=== PATIENT | male | born 1950 | race Caucasian/White ===

== ENCOUNTER 2022-04-10 21:40 | Inpatient (IN) | payer MEDICARE, SELFPAY ==
--- NOTE | ~2022-04-10 | MR_ITS ---
MRI OF THE BRAIN WITHOUT IV CONTRAST INDICATION: Rigidity. Questionably Lewy Body disease. COMPARISON: None available. TECHNIQUE: Multiplanar multisequence MR imaging of the brain was obtained without IV contrast. FINDINGS: There is no hydrocephalus, extra-axial surface collection, or herniation. There is global cerebral volume loss and there is mild chronic microangiopathy. The major flow voids at the skull base are preserved. There is no acute infarct on diffusion-weighted imaging. There is no intracranial hemorrhage on the gradient recalled echo acquisition. The midline structures are normal. The cerebellar tonsils are normally positioned. The cerebellum and brainstem are normal. The craniocervical junction is normal. Osseous marrow signal intensity is homogenous. The visualized soft tissues are unremarkable. MR/MR head/brain wo con IMPRESSION: - No acute intracranial findings. No acute infarcts. - There is global cerebral volume loss and there is mild chronic microangiopathy.
[2022-04-10 22:00] VITALS: BP 120/76; PULSE 85; RESP 18; TEMP 36.6; O2SAT 96
[2022-04-10 22:03] VITALS: BMI 27.3
[2022-04-10] MEDS: traZODone HCL 50 MG TABLET PO (23:51)
--- NOTE | 2022-04-11 02:44 | PC.ADMIT ---
Patient is a 72 year old Z[place]ian speaking male arriving on S1 at appx 2150 on CV status. Patient arrives from [facility] in [place] via ambulance. Patient was admitted through the ED there after calling crisis services for HI/SI with a plan to kill his and himself with a knife. Nurse to nurse pre-admission review completed. Patient has history of inpatient care outside of [facility] with last admission being 06/28/21. Patient denies AH/VH. Patient has no current medical complaints. Patient is cooperative and pleasant during admission, speaking in cohesive complete sentences with appropriate tone, volume, and rhythm of speech. Patient requests ativan PRN for anxiety, but it has not been ordered. Accepts trazadone PRN and appears to be sleeping shortly thereafter. 15 minute checks at this time.
[2022-04-11 06:00] VITALS: BP 138/71; PULSE 79; RESP 16; TEMP 36.7; O2SAT 97
[2022-04-11 08:56] LABS: Neutrophils Absolute Auto 3.7 x10*3/uL (2.0-8.3); WBCANC 6.2 X10*3/uL
[2022-04-11] MEDS: Tamsulosin HCL 0.4 MG CAPSULE PO (10:18)
[2022-04-11] MEDS: Finasteride 5 MG TABLET PO (10:18)
[2022-04-11] MEDS: Venlafaxine HCl ER 75 MG CAP.ER.24H PO (10:18)
[2022-04-11] MEDS: LORazepam 1 MG TABLET PO ×2 (12:07→17:06)
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
[2022-04-11 18:00] VITALS: BP 119/76; PULSE 82; RESP 16; TEMP 36.6; O2SAT 96
[2022-04-11] MEDS: Mirtazapine 30 MG TABLET PO (20:06)
[2022-04-11] MEDS: Lithium Carbonate ER 300 MG TABLET.ER 600 MG PO (20:07)
[2022-04-11] MEDS: Atorvastatin Calcium 20 MG TABLET PO (20:07)
[2022-04-11] MEDS: Melatonin 3 MG TABLET 6 MG PO (20:07)
[2022-04-11] MEDS: cloZAPine 100 MG TABLET PO (20:07)
[2022-04-11] MEDS: traZODone HCL 50 MG TABLET PO (20:11)
[2022-04-11 20:37] LABS: Lithium 0.48 mmol/L (0.60-1.20)
[2022-04-11 21:04] LABS: Alanine Aminotransferase 17 U/L (0-40); Albumin Level 3.4 g/dL (3.5-5.0); Alkaline Phosphatase 79 U/L (39-117); Anion Gap 11 (12-20); Aspartate Amino Transferase 13 U/L (5-37); Bilirubin Direct 0.2 mg/dL (0.0-0.5); Bilirubin Total 0.5 mg/dL (0.0-1.0); Blood Urea Nitrogen 11 mg/dL (9-16); Calcium 8.7 mg/dL (8.4-10.2); Carbon Dioxide 25 mmol/L (22-29); Chloride 112 mmol/L (96-108); Cholesterol 100 mg/dL; Creatinine Clr Calc Pharmacy 63.2; Estimated Glomerular Filt Rate > 60; Glucose Random 165 mg/dL (60-115); HDL Cholesterol 29 mg/dL; LDL Cholesterol Calculated 47 mg/dl; Potassium 4.4 mmol/L (3.3-5.1); Sodium 144 mmol/L (135-145); Total Protein 5.3 g/dL (6.5-8.0); Triglycerides 122 mg/dL
[2022-04-11 21:19] LABS: Folate 14.5 ng/mL (> or = 4.0); TSH reflex Free T4 2.24 uIU/mL (0.32-4.0); Vitamin B12 505 pg/mL (200-900)
[2022-04-12 08:30] VITALS: BP 143/81; PULSE 94; RESP 18; TEMP 37; O2SAT 94
[2022-04-12 09:10] LABS: Estimated Average Glucose 108 mg/dL; Hemoglobin A1c % 5.4 %
[2022-04-12] MEDS: Venlafaxine HCl ER 75 MG CAP.ER.24H PO (09:14)
[2022-04-12] MEDS: Tamsulosin HCL 0.4 MG CAPSULE PO (09:15)
[2022-04-12] MEDS: Finasteride 5 MG TABLET PO (09:17)
[2022-04-12] MEDS: LORazepam 1 MG TABLET PO ×2 (09:17→17:41)
--- NOTE | 2022-04-12 12:16 | HO.PSYCHPN ---
Subjective Subjective Date of Service: 04/12/22 Reason For Visit: MDD Recurrent Episode Severe PTSD Interim History: in bed, depressed, no requests. reviewed lithium level, will defer to attending on further mgmt after he speaks with dr. rosales. per staff, very depressed. asking for ativan every 4 hours. lithium 0.48 on 600 mg daily. Mental Status Exam Mental Status Exam Narrative: dressed in hospital attire, adequately dressed and groomed. cooperative. no PMA/PMR. speech nml rate, amount, loudness. flattened tone. thoughts linear and logical. affect constricted, normo-intense, non-labile. perhaps appears drawn. mood depressed. no SI/HI/AVH expressed. Diagnostics Vital Signs (24Hr): Vital Signs - 24 hr 04/11/22 18:00 04/12/22 08:30 Temperature 98 F 98.6 F Pulse Rate 82 94 Respiratory Rate 16 18 Blood Pressure 119/76 143/81 H Pulse Oximetry 96 94 Oxygen Delivery Method Room Air Room Air BMI result Body Mass Index 27.3 Labs 04/11/22 20:09 Labs: Laboratory Results - last 48 hr 04/11/22 04/11/22 04/11/22 08:42 20:09 20:09 Absolute Neuts (auto) 3.7 Sodium 144 Potassium 4.4 Chloride 112 H Carbon Dioxide 25 Anion Gap 11 L BUN 11 Creatinine 1.06 Estim Creat Clear Calc 63.2 Estimated GFR > 60 Random Glucose 165 H Estimat Average Glucose 108 Hemoglobin A1c % 5.4 Calcium 8.7 Total Bilirubin 0.5 Direct Bilirubin 0.2 AST 13 ALT 17 Alkaline Phosphatase 79 Total Protein 5.3 L Albumin 3.4 L Triglycerides 122 Cholesterol 100 LDL Cholesterol, Calc 47 HDL Cholesterol 29 Vitamin B12 505 Folate 14.5 TSH 2.24 [place] 04/11/22 20:09 Absolute Neuts (auto) Sodium Potassium Chloride Carbon Dioxide Anion Gap BUN Creatinine Estim Creat Clear Calc Estimated GFR Random Glucose Estimat Average Glucose Hemoglobin A1c % Calcium Total Bilirubin Direct Bilirubin AST ALT Alkaline Phosphatase Total Protein Albumin Triglycerides Cholesterol LDL Cholesterol, Calc HDL Cholesterol Vitamin B12 Folate TSH [place] 0.48 L Medications Medications Current Medications Acetaminophen (Acetaminophen 325 Mg Tablet) 650 mg PO Q6H PRN PRN Reason: Headache/Pain Mild Scale (1-3) Al Hydroxide/Mg Hydroxide (Magnesium Hydrox/Alum Hydrox 30 Ml Oral.Susp) 30 ml PO Q6H PRN PRN Reason: Heartburn/Nausea Atorvastatin Calcium (Atorvastatin Calcium 20 Mg Tablet) 20 mg PO BEDTIME DIANNE Last Admin: 04/11/22 20:07 Dose: 20 mg Clozapine (Clozapine 100 Mg Tablet) 100 mg PO BEDTIME DIANNE Last Admin: 04/11/22 20:07 Dose: 100 mg Finasteride (Finasteride 5 Mg Tablet) 5 mg PO DAILY COUNTS INCLUDE 234 BEDS AT THE [facility] Last Admin: 04/12/22 09:17 Dose: 5 mg [place] Carbonate ([place] Carbonate Er 300 Mg Tablet.Er) 600 mg PO BEDTIME DIANNE Last Admin: 04/11/22 20:07 Dose: 600 mg Lorazepam (Lorazepam 1 Mg Tablet) 1 mg PO Q4H PRN PRN Reason: moderate anxiety (4-7) Last Admin: 04/12/22 09:17 Dose: 1 mg Magnesium Hydroxide (Milk Of Magnesia 30 Ml Oral.Susp) 30 ml PO DAILY PRN PRN Reason: Constipation Melatonin (Melatonin 3 Mg Tablet) 6 mg PO BEDTIME COUNTS INCLUDE 234 BEDS AT THE [facility] Last Admin: 04/11/22 20:07 Dose: 6 mg Mirtazapine (Mirtazapine 30 Mg Tablet) 30 mg PO BEDTIME COUNTS INCLUDE 234 BEDS AT THE [facility] Last Admin: 04/11/22 20:06 Dose: 30 mg Senna (Sennosides 8.6 Mg Tablet) 17.2 mg PO BEDTIME PRN PRN Reason: constipation Tamsulosin HCl (Tamsulosin Hcl 0.4 Mg Capsule) 0.4 mg PO DAILY COUNTS INCLUDE 234 BEDS AT THE [facility] Last Admin: 04/12/22 09:15 Dose: 0.4 mg Trazodone HCl (Trazodone Hcl 50 Mg Tablet) 50 mg PO BEDTIME MRX1 PRN PRN Reason: Insomnia Last Admin: 04/11/22 20:11 Dose: 50 mg Venlafaxine HCl (Venlafaxine Hcl Er 75 Mg Cap.Er.24h) 75 mg PO DAILY COUNTS INCLUDE 234 BEDS AT THE [facility] Last Admin: 04/12/22 09:14 Dose: 75 mg Allergies Allergies Allergy/AdvReac Type Severity Reaction Status Date / Time Penicillins Allergy Rash Verified 04/11/22 00:44 Assessment & Plan Assessment & Plan (1) Major depressive disorder with psychotic features: Status: Acute Code(s): F32.3 - Major depressive disorder, single episode, severe with psychotic features Plan 04/11: continue current mgmt, with clozapine and lithium at doses he was on prior to the beginning of march. check labs. collect collateral from outpt prescriber on wednesday to determine next steps. ativan PRN anxiety. 04/12: continue current mgmt. collateral tomorrow. Reason for contiued inpatient stay Substantial Risk for: harm to self, inability to function and rapid decompensation Time Spent With Patient Time: Total time managing care of this patient today ____ minutes.
--- NOTE | 2022-04-12 14:25 | HO.PM.IMCN ---
History of Present Illness Data of Consult Service Date: 04/12/22 Primary Care Provider: Nonstaff Physician HPI Reason for consult: Admission H&P Patient is 72-year-old male with PMH significant for HTN, HLD, BPH and severe depression was seen for an admission history and physical to the [facility]. Patient denies any acute medical complaints. No chest pain/pressure, palpitations. No difficulties breathing/shortness of breath. Denies fever, chills, nausea, vomiting, abdominal pain. Review of Systems Review of Systems: Patient has no acute medical complaints at this time Yes all other systems are reviewed and are negative [facility] Medical History Anxiety Depression Glaucoma Hypercholesteremia Hypertension Laceration of abdomen Laceration of chest Laceration of wrist Surgical History History of laparotomy Social History Household Members: Spouse Housing: House Are you a primary before and after school daycare worker to a significant other at home: No Do you presently have visiting nurse or other home services: No Patient Tobacco Use Status: Former Tobacco user Quit Date: 03/2200 Tobacco use type: Cigarette and Cigar Smoked in Last 30 Days: No e-Cigarette/Vaping Use: Never Used Patient Interested in Nicotine Replacement: No Use of substances other than those prescribed or required for medical reasons: No Currently Displaying Signs/Symptoms of Drug Intoxication Withdrawal: No Any prior treatment program specific to substance use: No Advance Directives: No Advance Directives Information Provided: No Suicidal Behavior: History of suicide attemps Current/Past Psychiatric Disorders: Alcohol abuse, Chronic mental illess and Mood disorder Phan Symptoms: Impulsivity Family History: Attempts and Suicide Change in Treatment: Change in provider Access to Firearms: No Do you have thoughts of harming others: None Do you have a plan to hurt others: No Plan Do you have the means to hurt others: Yes (pervasive thoughts of using kitchen knife to harm/kill and self) Recently lost weight without trying: No Nutrition Risks: No Nutritional Risk Sexual orientation: Straight/Heterosexual Gender identity: Male Meds Allergies Allergy/AdvReac Type Severity Reaction Status Date / Time Penicillins Allergy Rash Verified 04/11/22 00:44 Active Medications: Current Medications Acetaminophen (Acetaminophen 325 Mg Tablet) 650 mg PO Q6H PRN PRN Reason: Headache/Pain Mild Scale (1-3) Al Hydroxide/Mg Hydroxide (Magnesium Hydrox/Alum Hydrox 30 Ml Oral.Susp) 30 ml PO Q6H PRN PRN Reason: Heartburn/Nausea Atorvastatin Calcium (Atorvastatin Calcium 20 Mg Tablet) 20 mg PO BEDTIME DIANNE Last Admin: 04/11/22 20:07 Dose: 20 mg Clozapine (Clozapine 100 Mg Tablet) 100 mg PO BEDTIME DIANNE Last Admin: 04/11/22 20:07 Dose: 100 mg Finasteride (Finasteride 5 Mg Tablet) 5 mg PO DAILY [facility] Last Admin: 04/12/22 09:17 Dose: 5 mg [place] Carbonate ([place] Carbonate Er 300 Mg Tablet.Er) 600 mg PO BEDTIME DIANNE Last Admin: 04/11/22 20:07 Dose: 600 mg Lorazepam (Lorazepam 1 Mg Tablet) 1 mg PO Q4H PRN PRN Reason: moderate anxiety (4-7) Last Admin: 04/12/22 09:17 Dose: 1 mg Magnesium Hydroxide (Milk Of Magnesia 30 Ml Oral.Susp) 30 ml PO DAILY PRN PRN Reason: Constipation Melatonin (Melatonin 3 Mg Tablet) 6 mg PO BEDTIME [facility] Last Admin: 04/11/22 20:07 Dose: 6 mg Mirtazapine (Mirtazapine 30 Mg Tablet) 30 mg PO BEDTIME DIANNE Last Admin: 04/11/22 20:06 Dose: 30 mg Senna (Sennosides 8.6 Mg Tablet) 17.2 mg PO BEDTIME PRN PRN Reason: constipation Tamsulosin HCl (Tamsulosin Hcl 0.4 Mg Capsule) 0.4 mg PO DAILY [facility] Last Admin: 04/12/22 09:15 Dose: 0.4 mg Trazodone HCl (Trazodone Hcl 50 Mg Tablet) 50 mg PO BEDTIME MRX1 PRN PRN Reason: Insomnia Last Admin: 04/11/22 20:11 Dose: 50 mg Venlafaxine HCl (Venlafaxine Hcl Er 75 Mg Cap.Er.24h) 75 mg PO DAILY [facility] Last Admin: 04/12/22 09:14 Dose: 75 mg Home Medications Medication Instructions Recorded Confirmed Last Taken Type clozapine 50 mg tablet 1 tab PO BEDTIME 04/11/22 04/11/22 04/10/22 History finasteride 5 mg tablet 1 tab PO DAILY 04/11/22 04/11/22 Unknown History lithium carbonate 300 mg 1 tab PO BEDTIME 04/11/22 04/11/22 04/10/22 History tablet,extended release mirtazapine 30 mg tablet 1 tab PO BEDTIME 04/11/22 04/11/22 Unknown History tamsulosin 0.4 mg capsule 1 cap PO DAILY 04/11/22 04/11/22 Unknown History venlafaxine 75 mg capsule,extended 1 cap PO QAM 04/11/22 04/11/22 Unknown History release 24 hr Physical Exam Vital Signs and Narrative: Vital Signs: Last Vital Signs Temp 98.6 F 04/12/22 08:30 Pulse 94 04/12/22 08:30 Resp 18 04/12/22 08:30 BP 143/81 H 04/12/22 08:30 Pulse Ox 94 04/12/22 08:30 O2 Del Method 04/12/22 08:30 BMI result Body Mass Index 27.3 General: AOx3, no acute distress Resp: CTA bilaterally CVS: S1, S2, RRR GI: +BS, NT, no distention Skin: No rash Neuro: Cranial nerves II-XII grossly intact. Motor grossly intact Extremities: No edema Psych: Appropriate affect Results Labs 04/11/22 20:09 Labs: Laboratory Results - last 24 hr 04/11/22 04/11/22 04/11/22 20:09 20:09 20:09 Anion Gap 11 L Estim Creat Clear Calc 63.2 Estimated GFR > 60 Random Glucose 165 H Estimat Average Glucose 108 Hemoglobin A1c % 5.4 Calcium 8.7 Total Bilirubin 0.5 Direct Bilirubin 0.2 AST 13 ALT 17 Alkaline Phosphatase 79 Total Protein 5.3 L Albumin 3.4 L Triglycerides 122 Cholesterol 100 LDL Cholesterol, Calc 47 HDL Cholesterol 29 Vitamin B12 505 Folate 14.5 TSH 2.24 [place] 0.48 L Assessment and Plan (1) Routine history and physical examination of adult: Status: Acute Plan Patient is 72-year-old male with PMH significant for HTN, HLD, BPH and severe depression was seen for an admission history and physical to the [facility]. Patient denies any acute medical complaints. BPH Continue finasteride, tamsulosin HTN Pt previously on Losartan 50mg qd, last filled 11/07/21 Currently not anti-hypertensives Monitor BP, if remains elevated restart Losartan HLD Pt previously on atorvastatin 20mg q bedtime, last filled 05/30/21 Currently not on cholesterol medication Continue to hold atorvastatin, follow-up outpatient with PCP Thank you for allowing us to participate in the care of this patient. Signing off at this time. Please contact us if there are any acute complaints or concerns. Time Spent With Patient Time: Total time managing care of this patient today ____ minutes.
[2022-04-12 20:30] VITALS: BP 144/88; PULSE 70; RESP 14; TEMP 36.2; O2SAT 98
[2022-04-12] MEDS: cloZAPine 100 MG TABLET PO (20:30)
[2022-04-12] MEDS: Lithium Carbonate ER 300 MG TABLET.ER 600 MG PO (20:31)
[2022-04-12] MEDS: traZODone HCL 50 MG TABLET PO (20:31)
[2022-04-12] MEDS: Melatonin 3 MG TABLET 6 MG PO (20:31)
[2022-04-12] MEDS: Mirtazapine 30 MG TABLET PO (20:31)
[2022-04-13 07:30] VITALS: BP 138/72; PULSE 76; RESP 16; TEMP 37.1; O2SAT 95
[2022-04-13] MEDS: Finasteride 5 MG TABLET PO (08:27)
[2022-04-13] MEDS: Venlafaxine HCl ER 75 MG CAP.ER.24H PO (08:27)
[2022-04-13] MEDS: Tamsulosin HCL 0.4 MG CAPSULE PO (08:27)
--- NOTE | 2022-04-13 12:12 | HO.PSYCHPN ---
Subjective Subjective Date of Service: 04/13/22 Reason For Visit: MDD Recurrent Episode Severe PTSD Subjective Notes: Conditional Voluntary Interim History: The nursing staff reported the patient slept well last night, he reports to being depressed, he has been calm and cooperative. According to the chart, his sleep him an Clozaril were lowered recently. The staff has noticed that the main complaint of the patient is anxiety. The occupational therapist did a [place] test and he scored 20/30 and his [place] test is 3.8. On interview the patient reports anxiety and depression, he is able to contract for safety in the facility I asked about his previous dose of Clozaril and lithium and we will try to get collateral information. Mental Status Exam Mental Status Exam Patient Appearance: Appropriate Patient Orientation: Person and Situation Level of Consciousness: Awake and Appropriate Patient Behavior: Guarded and Passive Affect Description: Withdrawn Ability to Follow Directions: Good Speech Pattern: Clear Hallucinations: None Delusions: Not Present Thought Process: Distracted, Evasive and Slowed Thinking Thought Content: positive for [place] and positive for Circumstantial Judgement: Fair Diagnostics Vital Signs (24Hr): Vital Signs - 24 hr 04/12/22 20:30 04/13/22 07:30 Temperature 97.2 F 98.7 F Pulse Rate 70 76 Respiratory Rate 14 16 Blood Pressure 144/88 H 138/72 Pulse Oximetry 98 95 Oxygen Delivery Method Room Air Room Air BMI result Body Mass Index 27.3 Labs 04/11/22 20:09 Labs: Laboratory Results - last 48 hr 04/11/22 04/11/22 04/11/22 20:09 20:09 20:09 Sodium 144 Potassium 4.4 Chloride 112 H Carbon Dioxide 25 Anion Gap 11 L BUN 11 Creatinine 1.06 Estim Creat Clear Calc 63.2 Estimated GFR > 60 Random Glucose 165 H Estimat Average Glucose 108 Hemoglobin A1c % 5.4 Calcium 8.7 Total Bilirubin 0.5 Direct Bilirubin 0.2 AST 13 ALT 17 Alkaline Phosphatase 79 Total Protein 5.3 L Albumin 3.4 L Triglycerides 122 Cholesterol 100 LDL Cholesterol, Calc 47 HDL Cholesterol 29 Vitamin B12 505 Folate 14.5 TSH 2.24 [place] 0.48 L Medications Medications Current Medications Acetaminophen (Acetaminophen 325 Mg Tablet) 650 mg PO Q6H PRN PRN Reason: Headache/Pain Mild Scale (1-3) Al Hydroxide/Mg Hydroxide (Magnesium Hydrox/Alum Hydrox 30 Ml Oral.Susp) 30 ml PO Q6H PRN PRN Reason: Heartburn/Nausea Atorvastatin Calcium (Atorvastatin Calcium 20 Mg Tablet) 20 mg PO BEDTIME [facility] Last Admin: 04/12/22 19:54 Dose: Not Given Clozapine (Clozapine 100 Mg Tablet) 100 mg PO BEDTIME [facility] Last Admin: 04/12/22 20:30 Dose: 100 mg Finasteride (Finasteride 5 Mg Tablet) 5 mg PO DAILY [facility] Last Admin: 04/13/22 08:27 Dose: 5 mg [place] Carbonate ([place] Carbonate Er 300 Mg Tablet.Er) 600 mg PO BEDTIME DIAN[facility] Last Admin: 04/12/22 20:31 Dose: 600 mg Lorazepam (Lorazepam 1 Mg Tablet) 1 mg PO Q4H PRN PRN Reason: moderate anxiety (4-7) Last Admin: 04/12/22 17:41 Dose: 1 mg Magnesium Hydroxide (Milk Of Magnesia 30 Ml Oral.Susp) 30 ml PO DAILY PRN PRN Reason: Constipation Melatonin (Melatonin 3 Mg Tablet) 6 mg PO BEDTIME [facility] Last Admin: 04/12/22 20:31 Dose: 6 mg Mirtazapine (Mirtazapine 30 Mg Tablet) 30 mg PO BEDTIME [facility] Last Admin: 04/12/22 20:31 Dose: 30 mg Senna (Sennosides 8.6 Mg Tablet) 17.2 mg PO BEDTIME PRN PRN Reason: constipation Tamsulosin HCl (Tamsulosin Hcl 0.4 Mg Capsule) 0.4 mg PO DAILY [facility] Last Admin: 04/13/22 08:27 Dose: 0.4 mg Trazodone HCl (Trazodone Hcl 50 Mg Tablet) 50 mg PO BEDTIME MRX1 PRN PRN Reason: Insomnia Last Admin: 04/12/22 20:31 Dose: 50 mg Venlafaxine HCl (Venlafaxine Hcl Er 75 Mg Cap.Er.24h) 75 mg PO DAILY [facility] Last Admin: 04/13/22 08:27 Dose: 75 mg Allergies Allergies Allergy/AdvReac Type Severity Reaction Status Date / Time Penicillins Allergy Rash Verified 04/11/22 00:44 Assessment & Plan Assessment & Plan (1) Routine history and physical examination of adult: Status: Acute Code(s): Z00.00 - Encounter for general adult medical examination without abnormal findings Plan Patient is 72-year-old male with PMH significant for HTN, HLD, BPH and severe depression was seen for an admission history and physical to the [facility]. Patient denies any acute medical complaints. BPH Continue finasteride, tamsulosin HTN Pt previously on Losartan 50mg qd, last filled 11/07/21 Currently not anti-hypertensives Monitor BP, if remains elevated restart Losartan HLD Pt previously on atorvastatin 20mg q bedtime, last filled 05/30/21 Currently not on cholesterol medication Continue to hold atorvastatin, follow-up outpatient with PCP Thank you for allowing us to participate in the care of this patient. Signing off at this time. Please contact us if there are any acute complaints or concerns. Plan 1. Gather collateral information. 2. Continue [place] was prescribed. 3. We will discuss the possibilities of other antidepressants. 4. Increase Clozaril up to 125 mg po qhs on Apr 13. Reason for contiued inpatient stay Substantial Risk for: inability to function, rapid decompensation and med/psych decompensation Time Spent With Patient Time: Total time managing care of this patient today __20__ minutes.
[2022-04-13] MEDS: LORazepam 1 MG TABLET PO ×2 (12:24→21:57)
[2022-04-13 18:00] VITALS: BP 140/83; PULSE 72; RESP 16; TEMP 36.5; O2SAT 97
[2022-04-13] MEDS: Atorvastatin Calcium 20 MG TABLET PO (21:55)
[2022-04-13] MEDS: Melatonin 3 MG TABLET 6 MG PO (21:55)
[2022-04-13] MEDS: cloZAPine 25 MG TABLET 125 MG PO (21:56)
[2022-04-13] MEDS: Lithium Carbonate ER 300 MG TABLET.ER 600 MG PO (21:57)
[2022-04-13] MEDS: Mirtazapine 30 MG TABLET PO (21:58)
[2022-04-14 06:00] VITALS: BP 137/74; PULSE 73; RESP 18; TEMP 35.9; O2SAT 96
[2022-04-14] MEDS: Finasteride 5 MG TABLET PO (11:20)
[2022-04-14] MEDS: LORazepam 1 MG TABLET PO ×2 (11:20→16:56)
[2022-04-14] MEDS: Tamsulosin HCL 0.4 MG CAPSULE PO (11:20)
[2022-04-14] MEDS: Venlafaxine HCl ER 75 MG CAP.ER.24H PO (11:20)
--- NOTE | 2022-04-14 13:54 | P.PNPSI_ITS ---
Subjective Subjective Date of Service: 04/14/22 Reason For Visit: MDD Recurrent Episode Severe PTSD Subjective Notes: Conditional Voluntary Interim History: The nursing staff reported the patient has been ordered utilizing his Ativan for anxiety. He looks extremely depressed and there is no evidence of aggressive behavior. On interview the patient reports that he is very depressed and he does not have energy. We discussed the plan to continue the titration of Clozaril. According to old records he used to be on 200 mg of Clozaril daily and he used to be s table. We will continue with the titration of Clozaril Mental Status Exam Mental Status Exam Patient Appearance: Well Grooomed and Appropriate Patient Orientation: Person and Situation Level of Consciousness: Awake and Appropriate Patient Behavior: Guarded and Passive Mood Description: Withdrawn Affect Description: Calm and Constricted Patient Cognition Impaired: Yes Ability to Follow Directions: Good Speech Pattern: Clear Hallucinations: None Delusions: Not Present Thought Process: Distracted and Linear Thought Content: positive for [place] and positive for Circumstantial Judgement: Fair Diagnostics Vital Signs (24Hr): Vital Signs - 24 hr 04/13/22 18:00 04/14/22 06:00 Temperature 97.7 F 96.7 F L Pulse Rate 72 73 Respiratory Rate 16 18 Blood Pressure 140/83 H 137/74 Pulse Oximetry 97 96 Oxygen Delivery Method Room Air Room Air BMI result Body Mass Index 27.3 Labs 04/11/22 20:09 Medications Medications Current Medications Acetaminophen (Acetaminophen 325 Mg Tablet) 650 mg PO Q6H PRN PRN Reason: Headache/Pain Mild Scale (1-3) Al Hydroxide/Mg Hydroxide (Magnesium Hydrox/Alum Hydrox 30 Ml Oral.Susp) 30 ml PO Q6H PRN PRN Reason: Heartburn/Nausea Atorvastatin Calcium (Atorvastatin Calcium 20 Mg Tablet) 20 mg PO BEDTIME [facility] Last Admin: 04/13/22 21:55 Dose: 20 mg Clozapine (Clozapine 25 Mg Tablet) 125 mg PO BEDTIME [facility] Last Admin: 04/13/22 21:56 Dose: 125 mg Finasteride (Finasteride 5 Mg Tablet) 5 mg PO DAILY [facility] Last Admin: 04/14/22 11:20 Dose: 5 mg [place] Carbonate ([place] Carbonate Er 300 Mg Tablet.Er) 600 mg PO BEDTIME [facility] Last Admin: 04/13/22 21:57 Dose: 600 mg Lorazepam (Lorazepam 1 Mg Tablet) 1 mg PO Q4H PRN PRN Reason: moderate anxiety (4-7) Last Admin: 04/14/22 11:20 Dose: 1 mg Magnesium Hydroxide (Milk Of Magnesia 30 Ml Oral.Susp) 30 ml PO DAILY PRN PRN Reason: Constipation Melatonin (Melatonin 3 Mg Tablet) 6 mg PO BEDTIME [facility] Last Admin: 04/13/22 21:55 Dose: 6 mg Mirtazapine (Mirtazapine 30 Mg Tablet) 30 mg PO BEDTIME [facility] Last Admin: 04/13/22 21:58 Dose: 30 mg Senna (Sennosides 8.6 Mg Tablet) 17.2 mg PO BEDTIME PRN PRN Reason: constipation Tamsulosin HCl (Tamsulosin Hcl 0.4 Mg Capsule) 0.4 mg PO DAILY [facility] Last Admin: 04/14/22 11:20 Dose: 0.4 mg Trazodone HCl (Trazodone Hcl 50 Mg Tablet) 50 mg PO BEDTIME MRX1 PRN PRN Reason: Insomnia Last Admin: 04/12/22 20:31 Dose: 50 mg Venlafaxine HCl (Venlafaxine Hcl Er 75 Mg Cap.Er.24h) 75 mg PO DAILY [facility] Last Admin: 04/14/22 11:20 Dose: 75 mg Allergies Allergies Allergy/AdvReac Type Severity Reaction Status Date / Time Penicillins Allergy Rash Verified 04/11/22 00:44 Assessment & Plan Assessment & Plan (1) Routine history and physical examination of adult: Status: Acute Code(s): Z00.00 - Encounter for general adult medical examination without abnormal findings Plan Patient is 72-year-old male with PMH significant for HTN, HLD, BPH and severe depression was seen for an admission history and physical to the [facility]. Patient denies any acute medical complaints. BPH Continue finasteride, tamsulosin HTN Pt previously on Losartan 50mg qd, last filled 11/07/21 Currently not anti-hypertensives Monitor BP, if remains elevated restart Losartan HLD Pt previously on atorvastatin 20mg q bedtime, last filled 05/30/21 Currently not on cholesterol medication Continue to hold atorvastatin, follow-up outpatient with PCP Thank you for allowing us to participate in the care of this patient. Signing off at this time. Please contact us if there are any acute complaints or concerns. Plan 1. Gather collateral information. 2. Continue [place] was prescribed. 3. We will discuss the possibilities of other antidepressants. 4. Increase Clozaril up to 125 mg po qhs on Apr 13. We will continue with the titration of Clozaril up to 200 mg daily. Reason for contiued inpatient stay Substantial Risk for: inability to function, rapid decompensation and med/psych decompensation Time Spent With Patient Time: Total time managing care of this patient today _20___ minutes.
[2022-04-14 18:00] VITALS: BP 136/78; PULSE 81; RESP 17; TEMP 36.6; O2SAT 98
[2022-04-14] MEDS: Atorvastatin Calcium 20 MG TABLET PO (20:28)
[2022-04-14] MEDS: Lithium Carbonate ER 300 MG TABLET.ER 600 MG PO (20:28)
[2022-04-14] MEDS: cloZAPine 25 MG TABLET 125 MG PO (20:28)
[2022-04-14] MEDS: Mirtazapine 30 MG TABLET PO (20:28)
[2022-04-14] MEDS: Melatonin 3 MG TABLET 6 MG PO (20:28)
[2022-04-15 06:00] VITALS: BP 129/73; PULSE 85; RESP 16; TEMP 36.9; O2SAT 97
[2022-04-15] MEDS: Finasteride 5 MG TABLET PO (10:51)
[2022-04-15] MEDS: Tamsulosin HCL 0.4 MG CAPSULE PO (10:51)
[2022-04-15] MEDS: LORazepam 1 MG TABLET PO ×2 (10:52→16:09)
--- NOTE | 2022-04-15 12:40 | HO.PSYCHPN ---
Subjective Subjective Date of Service: 04/15/22 Reason For Visit: MDD Recurrent Episode Severe PTSD Subjective Notes: Conditional Voluntary Interim History: The nursing staff reported the patient had complained of increased depression. The occupational therapist reported the on groups the patient had been depressed with some intrusive thoughts and he had good feedback from the group. On interview the patient reports depression, we discussed options and he agreed to continue with the titration of Clozaril up to 150 mg p.o. q.h.s.. We also are going to increase the Effexor from 75-112.5 mg for tomorrow morning. Mental Status Exam Mental Status Exam Patient Appearance: Well Grooomed and Appropriate Patient Orientation: Person and Situation Level of Consciousness: Awake and Appropriate Patient Behavior: Guarded and Passive Mood Description: Withdrawn Affect Description: Calm Patient Cognition Impaired: Yes Ability to Follow Directions: Good Speech Pattern: Clear Hallucinations: Auditory Delusions: Paranoid Ideation Thought Process: Distracted and Linear Thought Content: positive for [place] and positive for Circumstantial Judgement: Fair Diagnostics Vital Signs (24Hr): Vital Signs - 24 hr 04/14/22 18:00 04/15/22 06:00 Temperature 97.9 F 98.4 F Pulse Rate 81 85 Respiratory Rate 17 16 Blood Pressure 136/78 129/73 Pulse Oximetry 98 97 Oxygen Delivery Method Room Air Room Air BMI result Body Mass Index 27.3 Labs 04/11/22 20:09 Medications Medications Current Medications Acetaminophen (Acetaminophen 325 Mg Tablet) 650 mg PO Q6H PRN PRN Reason: Headache/Pain Mild Scale (1-3) Al Hydroxide/Mg Hydroxide (Magnesium Hydrox/Alum Hydrox 30 Ml Oral.Susp) 30 ml PO Q6H PRN PRN Reason: Heartburn/Nausea Atorvastatin Calcium (Atorvastatin Calcium 20 Mg Tablet) 20 mg PO BEDTIME [facility] Last Admin: 04/14/22 20:28 Dose: 20 mg Clozapine (Clozapine 25 Mg Tablet) 150 mg PO BEDTIME [facility] Finasteride (Finasteride 5 Mg Tablet) 5 mg PO DAILY [facility] Last Admin: 04/15/22 10:51 Dose: 5 mg [place] Carbonate ([place] Carbonate Er 300 Mg Tablet.Er) 600 mg PO BEDTIME [facility] Last Admin: 04/14/22 20:28 Dose: 600 mg Lorazepam (Lorazepam 1 Mg Tablet) 1 mg PO Q4H PRN PRN Reason: moderate anxiety (4-7) Last Admin: 04/15/22 10:52 Dose: 1 mg Magnesium Hydroxide (Milk Of Magnesia 30 Ml Oral.Susp) 30 ml PO DAILY PRN PRN Reason: Constipation Melatonin (Melatonin 3 Mg Tablet) 6 mg PO BEDTIME [facility] Last Admin: 04/14/22 20:28 Dose: 6 mg Mirtazapine (Mirtazapine 30 Mg Tablet) 30 mg PO BEDTIME [facility] Last Admin: 04/14/22 20:28 Dose: 30 mg Senna (Sennosides 8.6 Mg Tablet) 17.2 mg PO BEDTIME PRN PRN Reason: constipation Tamsulosin HCl (Tamsulosin Hcl 0.4 Mg Capsule) 0.4 mg PO DAILY [facility] Last Admin: 04/15/22 10:51 Dose: 0.4 mg Trazodone HCl (Trazodone Hcl 50 Mg Tablet) 50 mg PO BEDTIME MRX1 PRN PRN Reason: Insomnia Last Admin: 04/12/22 20:31 Dose: 50 mg Venlafaxine HCl (Venlafaxine Hcl Er 37.5 Mg Cap.Er.24h) 112.5 mg PO DAILY [facility] Allergies Allergies Allergy/AdvReac Type Severity Reaction Status Date / Time Penicillins Allergy Rash Verified 04/11/22 00:44 Assessment & Plan Assessment & Plan (1) Routine history and physical examination of adult: Status: Acute Code(s): Z00.00 - Encounter for general adult medical examination without abnormal findings Plan Patient is 72-year-old male with PMH significant for HTN, HLD, BPH and severe depression was seen for an admission history and physical to the [facility]. Patient denies any acute medical complaints. BPH Continue finasteride, tamsulosin HTN Pt previously on Losartan 50mg qd, last filled 11/07/21 Currently not anti-hypertensives Monitor BP, if remains elevated restart Losartan HLD Pt previously on atorvastatin 20mg q bedtime, last filled 05/30/21 Currently not on cholesterol medication Continue to hold atorvastatin, follow-up outpatient with PCP Thank you for allowing us to participate in the care of this patient. Signing off at this time. Please contact us if there are any acute complaints or concerns. Plan 1. Gather collateral information. 2. Continue [place] was prescribed. 3. We will discuss the possibilities of other antidepressants. 4. Increase Clozaril up to 125 mg po qhs on Feb 27. We will continue with the titration of Clozaril up to 200 mg daily. Clozaril is now up to 150 mg q.h.s. on April 15. 5. Effexor is increased to 112.5 mg on April 16 Reason for contiued inpatient stay Substantial Risk for: inability to function, rapid decompensation and med/psych decompensation Time Spent With Patient Time: Total time managing care of this patient today _20___ minutes.
[2022-04-15 18:00] VITALS: BP 116/71; PULSE 73; RESP 18; TEMP 36.8; O2SAT 97
[2022-04-15] MEDS: cloZAPine 25 MG TABLET 150 MG PO (20:06)
[2022-04-15] MEDS: Atorvastatin Calcium 20 MG TABLET PO (20:07)
[2022-04-15] MEDS: Lithium Carbonate ER 300 MG TABLET.ER 600 MG PO (20:07)
[2022-04-15] MEDS: Melatonin 3 MG TABLET 6 MG PO (20:07)
[2022-04-15] MEDS: Mirtazapine 30 MG TABLET PO (20:07)
[2022-04-16 06:00] VITALS: BP 142/73; PULSE 85; RESP 18; TEMP 36.6; O2SAT 95
[2022-04-16 07:00] VITALS: BMI 27.3
[2022-04-16 08:49] LABS: Lithium 0.77 mmol/L (0.60-1.20)
[2022-04-16 08:58] LABS: Anion Gap 10 (12-20); Blood Urea Nitrogen 12 mg/dL (9-16); Carbon Dioxide 27 mmol/L (22-29); Chloride 109 mmol/L (96-108); Creatinine Clr Calc Pharmacy 67.7; Estimated Glomerular Filt Rate > 60; Glucose Random 151 mg/dL (60-115); Potassium 4.3 mmol/L (3.3-5.1); Sodium 142 mmol/L (135-145)
[2022-04-16] MEDS: Venlafaxine HCl ER 37.5 MG CAP.ER.24H 112.5 MG PO (09:10)
[2022-04-16 09:11] LABS: Thyroid Stimulating Hormone 3.41 uIU/mL (0.32-4.0)
[2022-04-16] MEDS: Finasteride 5 MG TABLET PO (09:11)
[2022-04-16] MEDS: Tamsulosin HCL 0.4 MG CAPSULE PO (09:11)
[2022-04-16] MEDS: LORazepam 1 MG TABLET PO ×3 (09:11→20:52)
--- NOTE | 2022-04-16 17:27 | P.PNPSI_ITS ---
Subjective Subjective Date of Service: 04/16/22 Reason For Visit: MDD Recurrent Episode Severe PTSD Subjective Notes: Conditional Voluntary Interim History: The nursing staff reported the patient had been compliant with treatment, he remains most of the time in his room a needs encouragement to participate on group activities. The occupational therapist reported that he comes to groups he is very depressed and feels guilty of not able to perform. Even though he likes attending to groups. Blood work from today came back on lithium a therapeutic level. On interview, I explained the patient we will continue with a plan to titrate Clozaril up to 200 mg. He is fully aware of the possibility of urinary retention. I tried to contact Dr. Yrn Garcia at [phone] but I could not leave a message. Dr. Garcia is the primary outpatient provider of [facility]. Mental Status Exam Mental Status Exam Patient Appearance: Appropriate Patient Orientation: Person and Situation Level of Consciousness: Awake and Appropriate Patient Behavior: Cooperative and Passive Mood Description: Withdrawn Affect Description: Constricted and Depressed Patient Cognition Impaired: No Ability to Follow Directions: Good Speech Pattern: Clear Hallucinations: None Delusions: Not Present Thought Process: Distracted and Slowed Thinking Thought Content: positive for [place] and positive for Circumstantial Judgement: Fair Diagnostics Vital Signs (24Hr): Vital Signs - 24 hr 04/15/22 18:00 04/16/22 06:00 Temperature 98.3 F 97.8 F Pulse Rate 73 85 Respiratory Rate 18 18 Blood Pressure 116/71 142/73 H Pulse Oximetry 97 95 Oxygen Delivery Method Room Air Room Air BMI result Body Mass Index 27.3 Labs 04/16/22 08:12 Labs: Laboratory Results - last 48 hr 04/16/22 04/16/22 08:12 08:12 Sodium 142 Potassium 4.3 Chloride 109 H Carbon Dioxide 27 Anion Gap 10 L BUN 12 Creatinine 0.99 Estim Creat Clear Calc 67.7 Estimated GFR > 60 Random Glucose 151 H Calcium 9.0 TSH 3.41 [place] 0.77 Medications Medications Current Medications Acetaminophen (Acetaminophen 325 Mg Tablet) 650 mg PO Q6H PRN PRN Reason: Headache/Pain Mild Scale (1-3) Al Hydroxide/Mg Hydroxide (Magnesium Hydrox/Alum Hydrox 30 Ml Oral.Susp) 30 ml PO Q6H PRN PRN Reason: Heartburn/Nausea Atorvastatin Calcium (Atorvastatin Calcium 20 Mg Tablet) 20 mg PO BEDTIME [facility] Last Admin: 04/15/22 20:07 Dose: 20 mg Clozapine (Clozapine 25 Mg Tablet) 150 mg PO BEDTIME [facility] Last Admin: 04/15/22 20:06 Dose: 150 mg Finasteride (Finasteride 5 Mg Tablet) 5 mg PO DAILY [facility] Last Admin: 04/16/22 09:11 Dose: 5 mg [place] Carbonate ([place] Carbonate Er 300 Mg Tablet.Er) 600 mg PO BEDTIME [facility] Last Admin: 04/15/22 20:07 Dose: 600 mg Lorazepam (Lorazepam 1 Mg Tablet) 1 mg PO Q4H PRN PRN Reason: Anxiety Last Admin: 04/16/22 14:29 Dose: 1 mg Magnesium Hydroxide (Milk Of Magnesia 30 Ml Oral.Susp) 30 ml PO DAILY PRN PRN Reason: Constipation Melatonin (Melatonin 3 Mg Tablet) 6 mg PO BEDTIME [facility] Last Admin: 04/15/22 20:07 Dose: 6 mg Mirtazapine (Mirtazapine 30 Mg Tablet) 30 mg PO BEDTIME [facility] Last Admin: 04/15/22 20:07 Dose: 30 mg Senna (Sennosides 8.6 Mg Tablet) 17.2 mg PO BEDTIME PRN PRN Reason: constipation Tamsulosin HCl (Tamsulosin Hcl 0.4 Mg Capsule) 0.4 mg PO DAILY [facility] Last Admin: 04/16/22 09:11 Dose: 0.4 mg Trazodone HCl (Trazodone Hcl 50 Mg Tablet) 50 mg PO BEDTIME MRX1 PRN PRN Reason: Insomnia Last Admin: 04/12/22 20:31 Dose: 50 mg Venlafaxine HCl (Venlafaxine Hcl Er 37.5 Mg Cap.Er.24h) 112.5 mg PO DAILY [facility] Last Admin: 04/16/22 09:10 Dose: 112.5 mg Allergies Allergies Allergy/AdvReac Type Severity Reaction Status Date / Time Penicillins Allergy Rash Verified 04/11/22 00:44 Assessment & Plan Assessment & Plan (1) Routine history and physical examination of adult: Status: Acute Code(s): Z00.00 - Encounter for general adult medical examination without abnormal findings Plan Patient is 72-year-old male with PMH significant for HTN, HLD, BPH and severe depression was seen for an admission history and physical to the [facility]. Patient denies any acute medical complaints. BPH Continue finasteride, tamsulosin HTN Pt previously on Losartan 50mg qd, last filled 11/07/21 Currently not anti-hypertensives Monitor BP, if remains elevated restart Losartan HLD Pt previously on atorvastatin 20mg q bedtime, last filled 05/30/21 Currently not on cholesterol medication Continue to hold atorvastatin, follow-up outpatient with PCP Thank you for allowing us to participate in the care of this patient. Signing off at this time. Please contact us if there are any acute complaints or concerns. Plan 1. Gather collateral information. 2. Continue [place] was prescribed. 3. We will discuss the possibilities of other antidepressants. 4. Increase Clozaril up to 125 mg po qhs on Apr 13. We will continue with the titration of Clozaril up to 200 mg daily. Clozaril is now up to 150 mg q.h.s. on April 15. And we will change up to Clozaril 1 wants 175 mg on April 17. 5. Effexor is increased to 112.5 mg on April 16 Reason for contiued inpatient stay Substantial Risk for: inability to function, rapid decompensation and med/psych decompensation Time Spent With Patient Time: Total time managing care of this patient today __20__ minutes.
[2022-04-16 18:00] VITALS: BP 108/62; PULSE 79; RESP 16; TEMP 36.6; O2SAT 96
[2022-04-16] MEDS: cloZAPine 25 MG TABLET 150 MG PO (20:51)
[2022-04-16] MEDS: Lithium Carbonate ER 300 MG TABLET.ER 600 MG PO (20:51)
[2022-04-16] MEDS: Atorvastatin Calcium 20 MG TABLET PO (20:51)
[2022-04-16] MEDS: Melatonin 3 MG TABLET 6 MG PO (20:51)
[2022-04-16] MEDS: Mirtazapine 30 MG TABLET PO (20:52)
[2022-04-17 06:00] VITALS: BP 165/91; PULSE 70; TEMP 36.4; O2SAT 96
[2022-04-17] MEDS: Venlafaxine HCl ER 37.5 MG CAP.ER.24H 112.5 MG PO (09:23)
[2022-04-17] MEDS: Finasteride 5 MG TABLET PO (09:23)
[2022-04-17] MEDS: Tamsulosin HCL 0.4 MG CAPSULE PO (09:23)
--- NOTE | 2022-04-17 09:25 | HO.PSYCHPN ---
Subjective Subjective Date of Service: 04/17/22 Reason For Visit: MDD Recurrent Episode Severe PTSD Subjective Notes: Conditional Voluntary Interim History: Pt in bed. He reports feeling very depressed, very anxious. He reports suicidal ideation but denies any plan or intent to harm himself. He denies VH/AH. No overt delusional content reported or noted. Pt reports sleeping well at night. He is mostly in bed, minimally interactive with peers. Taking medications as prescribed. Medication Compliance: Yes Side effects from medications: No Review of Systems Review of Systems Patient has no acute medical complaints at this time Yes all other systems are reviewed and are negative Mental Status Exam Mental Status Exam Narrative: Pt alert, oriented x 3. He is in bed, minimal eye contact. He is dressed in hospital attire, fair hygiene. cooperative. no PMA/PMR. speech nml rate, amount, loudness. flattened tone. thoughts linear and logical. affect constricted, normo-intense, non-labile, constricted. mood depressed. no SI/HI/AVH expressed. Diagnostics Vital Signs (24Hr): Vital Signs - 24 hr 04/16/22 18:00 Temperature 97.9 F Pulse Rate 79 Respiratory Rate 16 Blood Pressure 108/62 Pulse Oximetry 96 Oxygen Delivery Method Room Air BMI result Body Mass Index 27.3 Labs 04/16/22 08:12 Labs: Laboratory Results - last 48 hr 04/16/22 04/16/22 08:12 08:12 Sodium 142 Potassium 4.3 Chloride 109 H Carbon Dioxide 27 Anion Gap 10 L BUN 12 Creatinine 0.99 Estim Creat Clear Calc 67.7 Estimated GFR > 60 Random Glucose 151 H Calcium 9.0 TSH 3.41 Bootjack 0.77 Medications Medications Current Medications Acetaminophen (Acetaminophen 325 Mg Tablet) 650 mg PO Q6H PRN PRN Reason: Headache/Pain Mild Scale (1-3) Al Hydroxide/Mg Hydroxide (Magnesium Hydrox/Alum Hydrox 30 Ml Oral.Susp) 30 ml PO Q6H PRN PRN Reason: Heartburn/Nausea Atorvastatin Calcium (Atorvastatin Calcium 20 Mg Tablet) 20 mg PO BEDTIME DIANNE Last Admin: 04/16/22 20:51 Dose: 20 mg Clozapine (Clozapine 25 Mg Tablet) 150 mg PO BEDTIME DIAN[facility] Stop: 04/17/22 17:00 Last Admin: 04/16/22 20:51 Dose: 150 mg Clozapine (Clozapine 25 Mg Tablet) 175 mg PO BEDTIME [facility] Finasteride (Finasteride 5 Mg Tablet) 5 mg PO DAILY [facility] Last Admin: 04/17/22 09:23 Dose: 5 mg Bootjack Carbonate (Bootjack Carbonate Er 300 Mg Tablet.Er) 600 mg PO BEDTIME [facility] Last Admin: 04/16/22 20:51 Dose: 600 mg Lorazepam (Lorazepam 1 Mg Tablet) 1 mg PO Q4H PRN PRN Reason: Anxiety Last Admin: 04/16/22 20:52 Dose: 1 mg Magnesium Hydroxide (Milk Of Magnesia 30 Ml Oral.Susp) 30 ml PO DAILY PRN PRN Reason: Constipation Melatonin (Melatonin 3 Mg Tablet) 6 mg PO BEDTIME [facility] Last Admin: 04/16/22 20:51 Dose: 6 mg Mirtazapine (Mirtazapine 30 Mg Tablet) 30 mg PO BEDTIME [facility] Last Admin: 04/16/22 20:52 Dose: 30 mg Senna (Sennosides 8.6 Mg Tablet) 17.2 mg PO BEDTIME PRN PRN Reason: constipation Tamsulosin HCl (Tamsulosin Hcl 0.4 Mg Capsule) 0.4 mg PO DAILY [facility] Last Admin: 04/17/22 09:23 Dose: 0.4 mg Trazodone HCl (Trazodone Hcl 50 Mg Tablet) 50 mg PO BEDTIME MRX1 PRN PRN Reason: Insomnia Last Admin: 04/12/22 20:31 Dose: 50 mg Venlafaxine HCl (Venlafaxine Hcl Er 37.5 Mg Cap.Er.24h) 112.5 mg PO DAILY [facility] Last Admin: 04/17/22 09:23 Dose: 112.5 mg Allergies Allergies Allergy/AdvReac Type Severity Reaction Status Date / Time Penicillins Allergy Rash Verified 04/11/22 00:44 Assessment & Plan Assessment & Plan (1) Major depressive disorder with psychotic features: Status: Acute Code(s): F32.3 - Major depressive disorder, single episode, severe with psychotic features Plan Patient is 72-year-old male with PMH significant for HTN, HLD, BPH and severe depression was seen for an admission history and physical to the [facility]. Patient denies any acute medical complaints. BPH Continue finasteride, tamsulosin HTN Pt previously on Losartan 50mg qd, last filled 11/07/21 Currently not anti-hypertensives Monitor BP, if remains elevated restart Losartan HLD Pt previously on atorvastatin 20mg q bedtime, last filled 05/30/21 Currently not on cholesterol medication Continue to hold atorvastatin, follow-up outpatient with PCP Thank you for allowing us to participate in the care of this patient. Signing off at this time. Please contact us if there are any acute complaints or concerns. Plan 1. Gather collateral information. 2. Continue Bootjack was prescribed. 3. We will discuss the possibilities of other antidepressants. 4. Increase Clozaril up to 125 mg po qhs on Apr 13. We will continue with the titration of Clozaril up to 200 mg daily. Clozaril is now up to 150 mg q.h.s. on April 15. And we will change up to Clozaril 1 wants 175 mg on April 17. 5. Effexor is increased to 112.5 mg on April 1604/17 continue tx. Reason for contiued inpatient stay Substantial Risk for: harm to self and inability to function Time Spent With Patient Time: Total time managing care of this patient today ____ minutes.
[2022-04-17] MEDS: LORazepam 1 MG TABLET PO (11:34)
[2022-04-17 18:00] VITALS: BP 120/65; PULSE 70
[2022-04-17] MEDS: cloZAPine 25 MG TABLET 175 MG PO (20:53)
[2022-04-17] MEDS: Lithium Carbonate ER 300 MG TABLET.ER 600 MG PO (20:54)
[2022-04-17] MEDS: Atorvastatin Calcium 20 MG TABLET PO (20:54)
[2022-04-17] MEDS: Melatonin 3 MG TABLET 6 MG PO (20:54)
[2022-04-17] MEDS: Mirtazapine 30 MG TABLET PO (20:54)
[2022-04-18] MEDS: Acetaminophen 325 MG TABLET 650 MG PO (06:22)
[2022-04-18 07:51] LABS: Neut%MD 61.2 %; Neutrophils Absolute Auto 4.8 x10*3/uL (2.0-8.3); WBCANC 7.8 X10*3/uL
[2022-04-18 09:00] VITALS: BP 128/84; PULSE 82; RESP 16; TEMP 36; O2SAT 96
--- NOTE | 2022-04-18 09:04 | HO.PSYCHPN ---
Subjective Subjective Date of Service: 04/18/22 Reason For Visit: MDD Recurrent Episode Severe PTSD Subjective Notes: Conditional Voluntary Interim History: Patient is severely depressed ruminating hopeless helpless despondent clozaril has been gradually increased lithium level .77 Medication Compliance: Yes Mental Status Exam Mental Status Exam Patient Appearance: Fatigued and Appropriate Patient Orientation: Person, Place, Time and Situation Level of Consciousness: Appropriate Patient Behavior: Cooperative Mood Description: Withdrawn, Depressed, Anxious, Blunted, Nervous and Apprehensive Affect Description: Depressed, Flat and Nervous Hallucinations: None Delusions: Not Present Thought Process: Slowed Thinking Thought Content: positive for Preoccupation, positive for Slowed Thinking and positive for Suicidal Ideation (if not in the hospital) Depressive Symptoms: Increased Anxiety, Increased Irritability and Thoughts of /Suicide Judgement: Fair Diagnostics Vital Signs (24Hr): Vital Signs - 24 hr 04/17/22 18:00 Pulse Rate 70 Blood Pressure 120/65 BMI result Body Mass Index 27.3 Labs 04/16/22 08:12 Labs: Laboratory Results - last 48 hr 04/16/22 04/18/22 08:12 06:54 Absolute Neuts (auto) 4.8 TSH 3.41 Medications Medications Current Medications Acetaminophen (Acetaminophen 325 Mg Tablet) 650 mg PO Q6H PRN PRN Reason: Headache/Pain Mild Scale (1-3) Last Admin: 04/18/22 06:22 Dose: 650 mg Al Hydroxide/Mg Hydroxide (Magnesium Hydrox/Alum Hydrox 30 Ml Oral.Susp) 30 ml PO Q6H PRN PRN Reason: Heartburn/Nausea Atorvastatin Calcium (Atorvastatin Calcium 20 Mg Tablet) 20 mg PO BEDTIME [facility] Last Admin: 04/17/22 20:54 Dose: 20 mg Clozapine (Clozapine 25 Mg Tablet) 175 mg PO BEDTIME [facility] Last Admin: 04/17/22 20:53 Dose: 175 mg Finasteride (Finasteride 5 Mg Tablet) 5 mg PO DAILY [facility] Last Admin: 04/17/22 09:23 Dose: 5 mg Meadow Carbonate ([place]ow Carbonate Er 300 Mg Tablet.Er) 600 mg PO BEDTIME [facility] Last Admin: 04/17/22 20:54 Dose: 600 mg Lorazepam (Lorazepam 1 Mg Tablet) 1 mg PO Q4H PRN PRN Reason: Anxiety Last Admin: 04/17/22 11:34 Dose: 1 mg Magnesium Hydroxide (Milk Of Magnesia 30 Ml Oral.Susp) 30 ml PO DAILY PRN PRN Reason: Constipation Melatonin (Melatonin 3 Mg Tablet) 6 mg PO BEDTIME [facility] Last Admin: 04/17/22 20:54 Dose: 6 mg Mirtazapine (Mirtazapine 30 Mg Tablet) 30 mg PO BEDTIME [facility] Last Admin: 04/17/22 20:54 Dose: 30 mg Senna (Sennosides 8.6 Mg Tablet) 17.2 mg PO BEDTIME PRN PRN Reason: constipation Tamsulosin HCl (Tamsulosin Hcl 0.4 Mg Capsule) 0.4 mg PO DAILY [facility] Last Admin: 04/17/22 09:23 Dose: 0.4 mg Trazodone HCl (Trazodone Hcl 50 Mg Tablet) 50 mg PO BEDTIME MRX1 PRN PRN Reason: Insomnia Last Admin: 04/12/22 20:31 Dose: 50 mg Venlafaxine HCl (Venlafaxine Hcl Er 37.5 Mg Cap.Er.24h) 112.5 mg PO DAILY [facility] Last Admin: 04/17/22 09:23 Dose: 112.5 mg Allergies Allergies Allergy/AdvReac Type Severity Reaction Status Date / Time Penicillins Allergy Rash Verified 04/11/22 00:44 Assessment & Plan Assessment & Plan (1) Major depressive disorder with psychotic features: Status: Acute Code(s): F32.3 - Major depressive disorder, single episode, severe with psychotic features Plan Patient is 72-year-old male with PMH significant for HTN, HLD, BPH and severe depression was seen for an admission history and physical to the [facility]. Patient denies any acute medical complaints. BPH Continue finasteride, tamsulosin HTN Pt previously on Losartan 50mg qd, last filled 11/07/21 Currently not anti-hypertensives Monitor BP, if remains elevated restart Losartan HLD Pt previously on atorvastatin 20mg q bedtime, last filled 05/30/21 Currently not on cholesterol medication Continue to hold atorvastatin, follow-up outpatient with PCP Thank you for allowing us to participate in the care of this patient. Signing off at this time. Please contact us if there are any acute complaints or concerns. Plan 1. Gather collateral information. 2. Continue Meadow was prescribed. 3. We will discuss the possibilities of other antidepressants. 4. Increase Clozaril up to 125 mg po qhs on Apr 13. We will continue with the titration of Clozaril up to 200 mg daily. Clozaril is now up to 150 mg q.h.s. on April 15. And we will change up to Clozaril 1 wants 175 mg on April 17. 5. Effexor is increased to 112.5 mg on April 1604/17 continue tx. 04/18/21 quite depressed hopeless helpless si if not in hosp setting ? consider ect Patient educated on: diagnosis and medication risk/benefits Informed Consent: further education needed Reason for contiued inpatient stay Substantial Risk for: harm to self Time Spent With Patient Time: Total time managing care of this patient today ____ minutes.
[2022-04-18] MEDS: LORazepam 1 MG TABLET PO (10:30)
[2022-04-18] MEDS: Venlafaxine HCl ER 37.5 MG CAP.ER.24H 112.5 MG PO (10:31)
[2022-04-18] MEDS: Finasteride 5 MG TABLET PO (10:31)
[2022-04-18] MEDS: Tamsulosin HCL 0.4 MG CAPSULE PO (10:31)
[2022-04-18 18:00] VITALS: BP 129/84; PULSE 74; RESP 18; TEMP 36.6; O2SAT 96
[2022-04-18] MEDS: cloZAPine 25 MG TABLET 175 MG PO (21:03)
[2022-04-18] MEDS: Atorvastatin Calcium 20 MG TABLET PO (21:03)
[2022-04-18] MEDS: Lithium Carbonate ER 300 MG TABLET.ER 600 MG PO (21:04)
[2022-04-18] MEDS: Mirtazapine 30 MG TABLET PO (21:04)
[2022-04-18] MEDS: Melatonin 3 MG TABLET 6 MG PO (21:04)
[2022-04-19 06:00] VITALS: BP 120/77; PULSE 82; RESP 16; TEMP 36.6; O2SAT 96
[2022-04-19] MEDS: Venlafaxine HCl ER 37.5 MG CAP.ER.24H 112.5 MG PO (08:45)
[2022-04-19] MEDS: Tamsulosin HCL 0.4 MG CAPSULE PO (08:47)
[2022-04-19] MEDS: LORazepam 1 MG TABLET PO (08:47)
[2022-04-19] MEDS: Finasteride 5 MG TABLET PO (08:47)
[2022-04-19 18:00] VITALS: BP 140/77; PULSE 85; RESP 18; TEMP 36.6; O2SAT 95
[2022-04-19] MEDS: Atorvastatin Calcium 20 MG TABLET PO (20:14)
[2022-04-19] MEDS: Lithium Carbonate ER 300 MG TABLET.ER 600 MG PO (20:14)
[2022-04-19] MEDS: Mirtazapine 30 MG TABLET PO (20:14)
[2022-04-19] MEDS: cloZAPine 25 MG TABLET 175 MG PO (20:14)
[2022-04-19] MEDS: Melatonin 3 MG TABLET 6 MG PO (20:14)
--- NOTE | 2022-04-19 23:14 | HO.PSYCHPN ---
Subjective Subjective Date of Service: 04/19/22 Reason For Visit: MDD Recurrent Episode Severe PTSD Subjective Notes: Conditional Voluntary Interim History: Patient anxious pacing irritable dysphoric Clozaril 175 mg lithium level around 0.8 history of repeated hospitalizations history of suicide attempt by stabbing extensive discussion regarding history treatment and consideration of ECT patient did have course of ECT to 2 years previously on clear efficacy. Patient does feel p.r.n. lorazepam helpful Medication Compliance: Yes Mental Status Exam Mental Status Exam Patient Appearance: Fatigued and Appropriate Patient Orientation: Person, Place, Time and Situation Level of Consciousness: Appropriate Patient Behavior: Cooperative Mood Description: Withdrawn, Depressed, Anxious, Blunted, Nervous and Apprehensive Affect Description: Depressed, Flat and Nervous Hallucinations: None Delusions: Not Present Thought Process: Slowed Thinking Thought Content: positive for Preoccupation, positive for Slowed Thinking and positive for Suicidal Ideation (if not in the hospital) Depressive Symptoms: Increased Anxiety, Increased Irritability and Thoughts of /Suicide Judgement: Fair Diagnostics Vital Signs (24Hr): Vital Signs - 24 hr 04/20/22 09:00 04/20/22 18:00 Temperature 97.2 F 97 F Pulse Rate 78 78 Respiratory Rate 18 17 Blood Pressure 149/90 H 145/75 H Pulse Oximetry 95 98 Oxygen Delivery Method Room Air Room Air BMI result Body Mass Index 27.3 Labs 04/16/22 08:12 Medications Medications Current Medications Acetaminophen (Acetaminophen 325 Mg Tablet) 650 mg PO Q6H PRN PRN Reason: Headache/Pain Mild Scale (1-3) Last Admin: 04/20/22 00:30 Dose: 650 mg Al Hydroxide/Mg Hydroxide (Magnesium Hydrox/Alum Hydrox 30 Ml Oral.Susp) 30 ml PO Q6H PRN PRN Reason: Heartburn/Nausea Atorvastatin Calcium (Atorvastatin Calcium 20 Mg Tablet) 20 mg PO BEDTIME [facility] Last Admin: 04/20/22 20:28 Dose: 20 mg Clozapine (Clozapine 25 Mg Tablet) 175 mg PO BEDTIME [facility] Last Admin: 04/20/22 20:29 Dose: 175 mg Finasteride (Finasteride 5 Mg Tablet) 5 mg PO DAILY [facility] Last Admin: 04/20/22 08:49 Dose: 5 mg [place] Carbonate ([place] Carbonate Er 300 Mg Tablet.Er) 600 mg PO BEDTIME [facility] Last Admin: 04/20/22 20:29 Dose: 600 mg Lorazepam (Lorazepam 0.5 Mg Tablet) 0.5 mg PO TID [facility] Last Admin: 04/20/22 20:29 Dose: 0.5 mg Lorazepam (Lorazepam 1 Mg Tablet) 1 mg PO Q4H PRN PRN Reason: Anxiety Last Admin: 04/20/22 11:13 Dose: 1 mg Magnesium Hydroxide (Milk Of Magnesia 30 Ml Oral.Susp) 30 ml PO DAILY PRN PRN Reason: Constipation Melatonin (Melatonin 3 Mg Tablet) 6 mg PO BEDTIME [facility] Last Admin: 04/20/22 20:29 Dose: 6 mg Mirtazapine (Mirtazapine 30 Mg Tablet) 30 mg PO BEDTIME [facility] Last Admin: 04/20/22 20:30 Dose: 30 mg Senna (Sennosides 8.6 Mg Tablet) 17.2 mg PO BEDTIME PRN PRN Reason: constipation Tamsulosin HCl (Tamsulosin Hcl 0.4 Mg Capsule) 0.4 mg PO DAILY [facility] Last Admin: 04/20/22 08:49 Dose: 0.4 mg Trazodone HCl (Trazodone Hcl 50 Mg Tablet) 50 mg PO BEDTIME MRX1 PRN PRN Reason: Insomnia Last Admin: 04/12/22 20:31 Dose: 50 mg Venlafaxine HCl (Venlafaxine Hcl Er 150 Mg Cap.Er.24h) 150 mg PO DAILY [facility] Allergies Allergies Allergy/AdvReac Type Severity Reaction Status Date / Time Penicillins Allergy Rash Verified 04/11/22 00:44 Assessment & Plan Assessment & Plan (1) Major depressive disorder with psychotic features: Status: Acute Code(s): F32.3 - Major depressive disorder, single episode, severe with psychotic features Plan Patient is 72-year-old male with PMH significant for HTN, HLD, BPH and severe depression was seen for an admission history and physical to the [facility]. Patient denies any acute medical complaints. BPH Continue finasteride, tamsulosin HTN Pt previously on Losartan 50mg qd, last filled 11/07/21 Currently not anti-hypertensives Monitor BP, if remains elevated restart Losartan HLD Pt previously on atorvastatin 20mg q bedtime, last filled 05/30/21 Currently not on cholesterol medication Continue to hold atorvastatin, follow-up outpatient with PCP Thank you for allowing us to participate in the care of this patient. Signing off at this time. Please contact us if there are any acute complaints or concerns. Plan 1. Gather collateral information. 2. Continue [place] was prescribed. 3. We will discuss the possibilities of other antidepressants. 4. Increase Clozaril up to 125 mg po qhs on Apr 13. We will continue with the titration of Clozaril up to 200 mg daily. Clozaril is now up to 150 mg q.h.s. on April 15. And we will change up to Clozaril 1 wants 175 mg on April 17. 5. Effexor is increased to 112.5 mg on April 1604/17 continue tx. 04/18/21 quite depressed hopeless helpless si if not in hosp setting ? consider ect 04/19/22 Pt seen chart reviewed ativan prn helpful to dec anxiety irritability will try and coordinate with outpt psych ? hx tx response Patient educated on: diagnosis, medication risk/benefits and therapeutic strategies Informed Consent: further education needed Reason for contiued inpatient stay Substantial Risk for: harm to self Time Spent With Patient Time: Total time managing care of this patient today ____ minutes.
[2022-04-20] MEDS: Acetaminophen 325 MG TABLET 650 MG PO (00:30)
[2022-04-20] MEDS: Tamsulosin HCL 0.4 MG CAPSULE PO (08:49)
[2022-04-20] MEDS: Venlafaxine HCl ER 37.5 MG CAP.ER.24H 112.5 MG PO (08:49)
[2022-04-20] MEDS: Finasteride 5 MG TABLET PO (08:49)
[2022-04-20 09:00] VITALS: BP 149/90; PULSE 78; RESP 18; TEMP 36.2; O2SAT 95
[2022-04-20] MEDS: LORazepam 1 MG TABLET PO (11:13)
[2022-04-20] MEDS: LORazepam 0.5 MG TABLET PO ×2 (15:52→20:29)
[2022-04-20 18:00] VITALS: BP 145/75; PULSE 78; RESP 17; TEMP 36.1; O2SAT 98
[2022-04-20] MEDS: Atorvastatin Calcium 20 MG TABLET PO (20:28)
[2022-04-20] MEDS: Melatonin 3 MG TABLET 6 MG PO (20:29)
[2022-04-20] MEDS: cloZAPine 25 MG TABLET 175 MG PO (20:29)
[2022-04-20] MEDS: Lithium Carbonate ER 300 MG TABLET.ER 600 MG PO (20:29)
[2022-04-20] MEDS: Mirtazapine 30 MG TABLET PO (20:30)
--- NOTE | 2022-04-20 23:17 | HO.PSYCHPN ---
Subjective Subjective Date of Service: 04/20/22 Reason For Visit: MDD Recurrent Episode Severe PTSD Subjective Notes: Conditional Voluntary Interim History: Patient continues to be quite depressed feeling like he would harm himself discharged denies active thoughts of self-harm denies intrusive impulsive voice or command to kill himself at this time. Ativan t.i.d. for severe anxiety Medication Compliance: Yes Mental Status Exam Mental Status Exam Patient Appearance: Well Grooomed Patient Orientation: Person, Place, Time and Situation Level of Consciousness: Awake and Appropriate Behavior Comments: Tense looking in appearance pacing anxious Mood Description: Depressed, Anxious, Blunted and Apprehensive Affect Description: Appropriate, Constricted, Depressed and Anxious Patient Cognition Impaired: No Ability to Follow Directions: Good Speech Pattern: Clear Memory Description: Intact Hallucinations: None Delusions: Being Controlled Thought Process: Intact and Goal Oriented Thought Content: positive for Goal Oriented, positive for Preoccupation, positive for Suicidal Ideation (pos if not in hosp setting ) and negative for Homicidal Ideation Depressive Symptoms: Increased Anxiety, Increased Irritability, Hopelessness, Increased Fatigue, Loss of Energy and Difficulty Concentrating Judgement: Good Diagnostics Vital Signs (24Hr): Vital Signs - 24 hr 04/20/22 09:00 04/20/22 18:00 Temperature 97.2 F 97 F Pulse Rate 78 78 Respiratory Rate 18 17 Blood Pressure 149/90 H 145/75 H Pulse Oximetry 95 98 Oxygen Delivery Method Room Air Room Air BMI result Body Mass Index 27.3 Labs 04/16/22 08:12 Medications Medications Current Medications Acetaminophen (Acetaminophen 325 Mg Tablet) 650 mg PO Q6H PRN PRN Reason: Headache/Pain Mild Scale (1-3) Last Admin: 04/20/22 00:30 Dose: 650 mg Al Hydroxide/Mg Hydroxide (Magnesium Hydrox/Alum Hydrox 30 Ml Oral.Susp) 30 ml PO Q6H PRN PRN Reason: Heartburn/Nausea Atorvastatin Calcium (Atorvastatin Calcium 20 Mg Tablet) 20 mg PO BEDTIME [facility] Last Admin: 04/20/22 20:28 Dose: 20 mg Clozapine (Clozapine 25 Mg Tablet) 175 mg PO BEDTIME [facility] Last Admin: 04/20/22 20:29 Dose: 175 mg Finasteride (Finasteride 5 Mg Tablet) 5 mg PO DAILY [facility] Last Admin: 04/20/22 08:49 Dose: 5 mg Fenwood Carbonate (Fenwood Carbonate Er 300 Mg Tablet.Er) 600 mg PO BEDTIME [facility] Last Admin: 04/20/22 20:29 Dose: 600 mg Lorazepam (Lorazepam 0.5 Mg Tablet) 0.5 mg PO TID [facility] Last Admin: 04/20/22 20:29 Dose: 0.5 mg Lorazepam (Lorazepam 1 Mg Tablet) 1 mg PO Q4H PRN PRN Reason: Anxiety Last Admin: 04/20/22 11:13 Dose: 1 mg Magnesium Hydroxide (Milk Of Magnesia 30 Ml Oral.Susp) 30 ml PO DAILY PRN PRN Reason: Constipation Melatonin (Melatonin 3 Mg Tablet) 6 mg PO BEDTIME [facility] Last Admin: 04/20/22 20:29 Dose: 6 mg Mirtazapine (Mirtazapine 30 Mg Tablet) 30 mg PO BEDTIME [facility] Last Admin: 04/20/22 20:30 Dose: 30 mg Senna (Sennosides 8.6 Mg Tablet) 17.2 mg PO BEDTIME PRN PRN Reason: constipation Tamsulosin HCl (Tamsulosin Hcl 0.4 Mg Capsule) 0.4 mg PO DAILY [facility] Last Admin: 04/20/22 08:49 Dose: 0.4 mg Trazodone HCl (Trazodone Hcl 50 Mg Tablet) 50 mg PO BEDTIME MRX1 PRN PRN Reason: Insomnia Last Admin: 04/12/22 20:31 Dose: 50 mg Venlafaxine HCl (Venlafaxine Hcl Er 150 Mg Cap.Er.24h) 150 mg PO DAILY [facility] Allergies Allergies Allergy/AdvReac Type Severity Reaction Status Date / Time Penicillins Allergy Rash Verified 04/11/22 00:44 Assessment & Plan Assessment & Plan (1) Major depressive disorder with psychotic features: Status: Acute Code(s): F32.3 - Major depressive disorder, single episode, severe with psychotic features Plan Patient is 72-year-old male with PMH significant for HTN, HLD, BPH and severe depression was seen for an admission history and physical to the [facility]. Patient denies any acute medical complaints. BPH Continue finasteride, tamsulosin HTN Pt previously on Losartan 50mg qd, last filled 11/07/21 Currently not anti-hypertensives Monitor BP, if remains elevated restart Losartan HLD Pt previously on atorvastatin 20mg q bedtime, last filled 05/30/21 Currently not on cholesterol medication Continue to hold atorvastatin, follow-up outpatient with PCP Thank you for allowing us to participate in the care of this patient. Signing off at this time. Please contact us if there are any acute complaints or concerns. Plan 1. Gather collateral information. 2. Continue [place] was prescribed. 3. We will discuss the possibilities of other antidepressants. 4. Increase Clozaril up to 125 mg po qhs on Apr 13. We will continue with the titration of Clozaril up to 200 mg daily. Clozaril is now up to 150 mg q.h.s. on April 15. And we will change up to Clozaril 1 wants 175 mg on April 17. 5. Effexor is increased to 112.5 mg on April 1604/17 continue tx. 04/18/21 quite depressed hopeless helpless si if not in hosp setting ? consider ect 04/19/22 Pt seen chart reviewed ativan prn helpful to dec anxiety irritability will try and coordinate with outpt psych ? hx tx response 04/20/22 Pt seen lorazepam tid consider ect Patient educated on: diagnosis and medication risk/benefits Informed Consent: understands Reason for contiued inpatient stay Substantial Risk for: harm to self and harm to others Time Spent With Patient Time: Total time managing care of this patient today ____ minutes.
[2022-04-21] MEDS: Acetaminophen 325 MG TABLET 650 MG PO (05:33)
[2022-04-21 06:00] VITALS: BP 136/76; PULSE 76; RESP 18; TEMP 36.4; O2SAT 97
[2022-04-21] MEDS: LORazepam 0.5 MG TABLET PO ×2 (10:17→20:33)
[2022-04-21] MEDS: Venlafaxine HCl ER 150 MG CAP.ER.24H PO (10:17)
[2022-04-21] MEDS: Finasteride 5 MG TABLET PO (10:18)
[2022-04-21] MEDS: Tamsulosin HCL 0.4 MG CAPSULE PO (10:18)
[2022-04-21] MEDS: LORazepam 1 MG TABLET PO (13:37)
[2022-04-21 18:00] VITALS: BP 149/87; PULSE 77; RESP 18; TEMP 36.5; O2SAT 96
[2022-04-21] MEDS: Atorvastatin Calcium 20 MG TABLET PO (20:32)
[2022-04-21] MEDS: Melatonin 3 MG TABLET 6 MG PO (20:33)
[2022-04-21] MEDS: Lithium Carbonate ER 300 MG TABLET.ER 600 MG PO (20:33)
[2022-04-21] MEDS: cloZAPine 25 MG TABLET 175 MG PO (20:33)
[2022-04-21] MEDS: Mirtazapine 30 MG TABLET PO (20:34)
--- NOTE | 2022-04-21 22:52 | HO.PSYCHPN ---
Subjective Subjective Date of Service: 04/21/22 Reason For Visit: MDD Recurrent Episode Severe PTSD Subjective Notes: Conditional Voluntary Healthcare Proxy: No Guardianship: No Interim History: Patient depressed anxious intermittently hopeless helpless difficulty seeing a future if he were to be discharged cast traffic thoughts regarding loss of his marriage patient had had prior to admission intrusive thoughts in which she felt controlled and that he felt that he needed to stab his and staff himself. He did seek treatment. Is unclear if this related to going down on clozapine 250 mg which had been 100 mg now presently at 175 mg Patient feels lorazepam helpful for decreasing anxiety agitation he is however having a difficult time seeing unclear future feels upset overwhelmed over potential loss of his marriage Medication Compliance: Yes Side effects from medications: No Mental Status Exam Mental Status Exam Patient Appearance: Well Grooomed Patient Orientation: Person, Place, Time and Situation Level of Consciousness: Awake and Appropriate Behavior Comments: Tense looking in appearance pacing anxious Mood Description: Depressed, Anxious, Blunted and Apprehensive Affect Description: Appropriate, Constricted, Depressed and Anxious Patient Cognition Impaired: No Ability to Follow Directions: Good Speech Pattern: Clear Memory Description: Intact Hallucinations: None Delusions: Being Controlled Thought Process: Intact and Goal Oriented Thought Content: positive for Goal Oriented, positive for Preoccupation, positive for Suicidal Ideation (pos if not in hosp setting ) and negative for Homicidal Ideation Depressive Symptoms: Increased Anxiety, Increased Irritability, Hopelessness, Increased Fatigue, Loss of Energy and Difficulty Concentrating Judgement: Good Diagnostics Vital Signs (24Hr): Vital Signs - 24 hr 04/22/22 06:00 04/22/22 20:00 Temperature 98.0 F 97.6 F Pulse Rate 88 92 Respiratory Rate 18 18 Blood Pressure 136/65 111/68 Pulse Oximetry 96 96 Oxygen Delivery Method Room Air Room Air BMI result Body Mass Index 27.3 Labs 04/22/22 09:15 Labs: Laboratory Results - last 48 hr 04/22/22 04/22/22 09:15 14:25 Sodium 142 Potassium 3.9 Chloride 110 H Carbon Dioxide 27 Anion Gap 9 L BUN 13 Creatinine 1.07 Estim Creat Clear Calc 62.6 Estimated GFR > 60 Random Glucose 190 H Calcium 8.7 Total Bilirubin 0.6 AST 16 ALT 29 Alkaline Phosphatase 72 Total Protein 5.2 L Albumin 3.5 Urine Color Yellow Urine Appearance Clear Urine pH 6.5 Ur Specific [place] <= 1.005 Urine Protein Negative Urine Glucose (UA) Negative Urine Ketones Negative Urine Blood Trace H Urine Nitrite Negative Ur Leukocyte Esterase Large (3+) H Urine RBC 0-2 Urine WBC >50 H Ur Squamous Epith Cells 0-2 Urine Bacteria None Seen Hyaline Casts 0-2 Medications Medications Current Medications Acetaminophen (Acetaminophen 325 Mg Tablet) 650 mg PO Q6H PRN PRN Reason: Headache/Pain Mild Scale (1-3) Last Admin: 04/22/22 04:01 Dose: 650 mg Al Hydroxide/Mg Hydroxide (Magnesium Hydrox/Alum Hydrox 30 Ml Oral.Susp) 30 ml PO Q6H PRN PRN Reason: Heartburn/Nausea Atorvastatin Calcium (Atorvastatin Calcium 20 Mg Tablet) 20 mg PO BEDTIME [facility] Last Admin: 04/22/22 20:37 Dose: 20 mg Clozapine (Clozapine 100 Mg Tablet) 100 mg PO BEDTIME [facility] Last Admin: 04/22/22 20:39 Dose: 100 mg Clozapine (Clozapine 25 Mg Tablet) 75 mg PO BEDTIME [facility] Last Admin: 04/22/22 20:37 Dose: 75 mg Finasteride (Finasteride 5 Mg Tablet) 5 mg PO DAILY [facility] Last Admin: 04/22/22 08:50 Dose: 5 mg [place] Carbonate ([place] Carbonate Er 300 Mg Tablet.Er) 600 mg PO BEDTIME [facility] Last Admin: 04/22/22 20:38 Dose: 600 mg Lorazepam (Lorazepam 0.5 Mg Tablet) 0.5 mg PO TID [facility] Last Admin: 04/22/22 20:37 Dose: 0.5 mg Lorazepam (Lorazepam 1 Mg Tablet) 1 mg PO Q4H PRN PRN Reason: Anxiety Last Admin: 04/22/22 04:03 Dose: 1 mg Magnesium Hydroxide (Milk Of Magnesia 30 Ml Oral.Susp) 30 ml PO DAILY PRN PRN Reason: Constipation Melatonin (Melatonin 3 Mg Tablet) 6 mg PO BEDTIME [facility] Last Admin: 04/22/22 20:36 Dose: 6 mg Mirtazapine (Mirtazapine 30 Mg Tablet) 30 mg PO BEDTIME [facility] Last Admin: 04/22/22 20:37 Dose: 30 mg Senna (Sennosides 8.6 Mg Tablet) 17.2 mg PO BEDTIME PRN PRN Reason: constipation Tamsulosin HCl (Tamsulosin Hcl 0.4 Mg Capsule) 0.4 mg PO DAILY [facility] Last Admin: 04/22/22 08:49 Dose: 0.4 mg Trazodone HCl (Trazodone Hcl 50 Mg Tablet) 50 mg PO BEDTIME MRX1 PRN PRN Reason: Insomnia Last Admin: 04/12/22 20:31 Dose: 50 mg Venlafaxine HCl (Venlafaxine Hcl Er 150 Mg Cap.Er.24h) 150 mg PO DAILY [facility] Last Admin: 04/22/22 08:49 Dose: 150 mg Allergies Allergies Allergy/AdvReac Type Severity Reaction Status Date / Time Penicillins Allergy Rash Verified 04/11/22 00:44 Assessment & Plan Assessment & Plan (1) Major depressive disorder with psychotic features: Status: Acute Code(s): F32.3 - Major depressive disorder, single episode, severe with psychotic features Plan Patient is 72-year-old male with PMH significant for HTN, HLD, BPH and severe depression was seen for an admission history and physical to [facility]. Patient denies any acute medical complaints. BPH Continue finasteride, tamsulosin HTN Pt previously on Losartan 50mg qd, last filled 11/07/21 Currently not anti-hypertensives Monitor BP, if remains elevated restart Losartan HLD Pt previously on atorvastatin 20mg q bedtime, last filled 05/30/21 Currently not on cholesterol medication Continue to hold atorvastatin, follow-up outpatient with PCP Thank you for allowing us to participate in the care of this patient. Signing off at this time. Please contact us if there are any acute complaints or concerns. Plan 1. Gather collateral information. 2. Continue [place] was prescribed. 3. We will discuss the possibilities of other antidepressants. 4. Increase Clozaril up to 125 mg po qhs on Apr 13. We will continue with the titration of Clozaril up to 200 mg daily. Clozaril is now up to 150 mg q.h.s. on April 15. And we will change up to Clozaril 1 wants 175 mg on April 17. 5. Effexor is increased to 112.5 mg on April 1604/17 continue tx. 04/18/21 quite depressed hopeless helpless si if not in hosp setting ? consider ect 04/19/22 Pt seen chart reviewed ativan prn helpful to dec anxiety irritability will try and coordinate with outpt psych ? hx tx response 04/20/22 Pt seen lorazepam tid consider ect 04/21/2022 Discussed option of potentially CT trying to get data from prior hospitalization on Effexor mirtazapine clozaril lithium Reason for contiued inpatient stay Substantial Risk for: harm to self and rapid decompensation Time Spent With Patient Time: Total time managing care of this patient today ____ minutes.
[2022-04-22] MEDS: Acetaminophen 325 MG TABLET 650 MG PO (04:01)
[2022-04-22] MEDS: LORazepam 1 MG TABLET PO (04:03)
[2022-04-22 06:00] VITALS: BP 136/65; PULSE 88; RESP 18; TEMP 36.7; O2SAT 96
[2022-04-22] MEDS: LORazepam 0.5 MG TABLET PO ×3 (08:49→20:37)
[2022-04-22] MEDS: Tamsulosin HCL 0.4 MG CAPSULE PO (08:49)
[2022-04-22] MEDS: Venlafaxine HCl ER 150 MG CAP.ER.24H PO (08:49)
[2022-04-22] MEDS: Finasteride 5 MG TABLET PO (08:50)
[2022-04-22 10:16] LABS: Alanine Aminotransferase 29 U/L (0-40); Albumin Level 3.5 g/dL (3.5-5.0); Alkaline Phosphatase 72 U/L (39-117); Anion Gap 9 (12-20); Aspartate Amino Transferase 16 U/L (5-37); Bilirubin Total 0.6 mg/dL (0.0-1.0); Blood Urea Nitrogen 13 mg/dL (9-16); Calcium 8.7 mg/dL (8.4-10.2); Carbon Dioxide 27 mmol/L (22-29); Chloride 110 mmol/L (96-108); Creatinine Clr Calc Pharmacy 62.6; Estimated Glomerular Filt Rate > 60; Glucose Random 190 mg/dL (60-115); Potassium 3.9 mmol/L (3.3-5.1); Sodium 142 mmol/L (135-145); Total Protein 5.2 g/dL (6.5-8.0)
[2022-04-22 14:36] LABS: Appearance Urine Clear; Color Urine Yellow; Glucose Urine UA Negative (Negative); Leukocyte Esterase Urine Large (3+) (Negative); Nitrite Urine Negative (Negative); PH 6.5 (5.0-9.0); Specific Gravity - Urine <= 1.005 (1.005-1.025); UMIC TRIGGER UACC YES; Urine Blood Trace (Negative); Urine Ketones Negative (Negative); Urine Protein Negative (Neg-Trace)
[2022-04-22 14:38] LABS: Bacteria Urine None Seen (None Seen); Hyaline Casts Urine 0-2 /LPF (0-2); RBC Urine 0-2 /HPF (0-2); Squamous Epithelial Cell Urine 0-2 /HPF (0-2); UACC Culture Trigger YES; WBC Urine >50 /HPF (0-5)
[2022-04-22 20:00] VITALS: BP 111/68; PULSE 92; RESP 18; TEMP 36.4; O2SAT 96
[2022-04-22] MEDS: Melatonin 3 MG TABLET 6 MG PO (20:36)
[2022-04-22] MEDS: Atorvastatin Calcium 20 MG TABLET PO (20:37)
[2022-04-22] MEDS: cloZAPine 25 MG TABLET 75 MG PO (20:37)
[2022-04-22] MEDS: Mirtazapine 30 MG TABLET PO (20:37)
[2022-04-22] MEDS: Lithium Carbonate ER 300 MG TABLET.ER 600 MG PO (20:38)
[2022-04-22] MEDS: cloZAPine 100 MG TABLET PO (20:39)
--- NOTE | 2022-04-22 22:56 | P.PNPSI_ITS ---
Subjective Subjective Date of Service: 04/21/22 Reason For Visit: MDD Recurrent Episode Severe PTSD Subjective Notes: Conditional Voluntary Healthcare Proxy: Yes (NOT INVOKED) Interim History: pt depressed hopeless helpless asking about ect bothered by seeing his stabbed intrusive images denies plan or intent states if he were home he would stab himself he did speak to his today does states she does not want to be part of his treatment he denies any thoughts of harm wanting to harm her Medication Compliance: Yes Review of Systems Intermittent flank pain see UA some narrative memory disturbance Medical Review of Systems: unchanged Mental Status Exam Mental Status Exam Patient Appearance: Well Grooomed Patient Orientation: Person, Place, Time and Situation Level of Consciousness: Awake and Appropriate Patient Behavior: Appropriate Behavior Comments: Tense looking in appearance pacing anxious Mood Description: Depressed, Anxious, Blunted and Apprehensive Affect Description: Appropriate, Constricted, Depressed and Anxious Patient Cognition Impaired: No Ability to Follow Directions: Good Speech Pattern: Clear Memory Description: Intact Hallucinations: None Delusions: Being Controlled Thought Process: Intact and Goal Oriented Thought Content: positive for Goal Oriented, positive for Preoccupation, positive for Suicidal Ideation (pos if not in hosp setting ) and negative for Homicidal Ideation Depressive Symptoms: Increased Anxiety, Increased Irritability, Hopelessness, Increased Fatigue, Loss of Energy and Difficulty Concentrating Judgement: Good Diagnostics Vital Signs (24Hr): Vital Signs - 24 hr 04/22/22 06:00 04/22/22 20:00 Temperature 98.0 F 97.6 F Pulse Rate 88 92 Respiratory Rate 18 18 Blood Pressure 136/65 111/68 Pulse Oximetry 96 96 Oxygen Delivery Method Room Air Room Air BMI result Body Mass Index 27.3 Labs 04/22/22 09:15 Labs: Laboratory Results - last 48 hr 04/22/22 04/22/22 09:15 14:25 Sodium 142 Potassium 3.9 Chloride 110 H Carbon Dioxide 27 Anion Gap 9 L BUN 13 Creatinine 1.07 Estim Creat Clear Calc 62.6 Estimated GFR > 60 Random Glucose 190 H Calcium 8.7 Total Bilirubin 0.6 AST 16 ALT 29 Alkaline Phosphatase 72 Total Protein 5.2 L Albumin 3.5 Urine Color Yellow Urine Appearance Clear Urine pH 6.5 Ur Specific [place] <= 1.005 Urine Protein Negative Urine Glucose (UA) Negative Urine Ketones Negative Urine Blood Trace H Urine Nitrite Negative Ur Leukocyte Esterase Large (3+) H Urine RBC 0-2 Urine WBC >50 H Ur Squamous Epith Cells 0-2 Urine Bacteria None Seen Hyaline Casts 0-2 Medications Medications Current Medications Acetaminophen (Acetaminophen 325 Mg Tablet) 650 mg PO Q6H PRN PRN Reason: Headache/Pain Mild Scale (1-3) Last Admin: 04/22/22 04:01 Dose: 650 mg Al Hydroxide/Mg Hydroxide (Magnesium Hydrox/Alum Hydrox 30 Ml Oral.Susp) 30 ml PO Q6H PRN PRN Reason: Heartburn/Nausea Atorvastatin Calcium (Atorvastatin Calcium 20 Mg Tablet) 20 mg PO BEDTIME [facility] Last Admin: 04/22/22 20:37 Dose: 20 mg Clozapine (Clozapine 100 Mg Tablet) 100 mg PO BEDTIME [facility] Last Admin: 04/22/22 20:39 Dose: 100 mg Clozapine (Clozapine 25 Mg Tablet) 75 mg PO BEDTIME [facility] Last Admin: 04/22/22 20:37 Dose: 75 mg Finasteride (Finasteride 5 Mg Tablet) 5 mg PO DAILY [facility] Last Admin: 04/22/22 08:50 Dose: 5 mg [place] Carbonate ([place] Carbonate Er 300 Mg Tablet.Er) 600 mg PO BEDTIME [facility] Last Admin: 04/22/22 20:38 Dose: 600 mg Lorazepam (Lorazepam 0.5 Mg Tablet) 0.5 mg PO TID [facility] Last Admin: 04/22/22 20:37 Dose: 0.5 mg Lorazepam (Lorazepam 1 Mg Tablet) 1 mg PO Q4H PRN PRN Reason: Anxiety Last Admin: 04/22/22 04:03 Dose: 1 mg Magnesium Hydroxide (Milk Of Magnesia 30 Ml Oral.Susp) 30 ml PO DAILY PRN PRN Reason: Constipation Melatonin (Melatonin 3 Mg Tablet) 6 mg PO BEDTIME [facility] Last Admin: 04/22/22 20:36 Dose: 6 mg Mirtazapine (Mirtazapine 30 Mg Tablet) 30 mg PO BEDTIME [facility] Last Admin: 04/22/22 20:37 Dose: 30 mg Senna (Sennosides 8.6 Mg Tablet) 17.2 mg PO BEDTIME PRN PRN Reason: constipation Tamsulosin HCl (Tamsulosin Hcl 0.4 Mg Capsule) 0.4 mg PO DAILY [facility] Last Admin: 04/22/22 08:49 Dose: 0.4 mg Trazodone HCl (Trazodone Hcl 50 Mg Tablet) 50 mg PO BEDTIME MRX1 PRN PRN Reason: Insomnia Last Admin: 04/12/22 20:31 Dose: 50 mg Venlafaxine HCl (Venlafaxine Hcl Er 150 Mg Cap.Er.24h) 150 mg PO DAILY [facility] Last Admin: 04/22/22 08:49 Dose: 150 mg Allergies Allergies Allergy/AdvReac Type Severity Reaction Status Date / Time Penicillins Allergy Rash Verified 04/11/22 00:44 Assessment & Plan Assessment & Plan (1) Major depressive disorder with psychotic features: Status: Acute Code(s): F32.3 - Major depressive disorder, single episode, severe with psychotic features Plan Patient is 72-year-old male with PMH significant for HTN, HLD, BPH and severe depression was seen for an admission history and physical to [facility]. Patient denies any acute medical complaints. BPH Continue finasteride, tamsulosin HTN Pt previously on Losartan 50mg qd, last filled 11/07/21 Currently not anti-hypertensives Monitor BP, if remains elevated restart Losartan HLD Pt previously on atorvastatin 20mg q bedtime, last filled 05/30/21 Currently not on cholesterol medication Continue to hold atorvastatin, follow-up outpatient with PCP Thank you for allowing us to participate in the care of this patient. Signing off at this time. Please contact us if there are any acute complaints or conc erns. Plan 1. Gather collateral information. 2. Continue [place] was prescribed. 3. We will discuss the possibilities of other antidepressants. 4. Increase Clozaril up to 125 mg po qhs on Apr 13. We will continue with the titration of Clozaril up to 200 mg daily. Clozaril is now up to 150 mg q.h.s. on April 15. And we will change up to Clozaril 1 wants 175 mg on April 17. 5. Effexor is increased to 112.5 mg on April 1604/17 continue tx. 04/18/21 quite depressed hopeless helpless si if not in hosp setting ? consider ect 04/19/22 Pt seen chart reviewed ativan prn helpful to dec anxiety irritability will try and coordinate with outpt psych ? hx tx response 04/20/22 Pt seen lorazepam tid consider ect 04/21/2022 Discussed option of potentially CT trying to get data from prior hospitalization on Effexor mirtazapine clozaril lithium 04/22/2022 Patient quite depressed anxious hopeless helpless thoughts at times he would be better off but denies plan or intent setting he is asking for help. He is asking about ECT his outpatient psychiatrist did not know his response to ECT previously patient had been generally stable until clozapine had been lowered from 100-50 present dose 175 which he seems to be tolerating Effexor had been increased to 150 mg Patient educated on: medication risk/benefits, ECT, therapeutic strategies and medical condition Informed Consent: understands Reason for contiued inpatient stay Substantial Risk for: harm to self Time Spent With Patient Time: Total time managing care of this patient today _60___ minutes.pt seen records reviewed spoke with outpt psychiatrist
[2022-04-23 06:00] VITALS: BP 113/56; PULSE 86; RESP 16; TEMP 36.4; O2SAT 97
[2022-04-23] MEDS: Finasteride 5 MG TABLET PO (10:38)
[2022-04-23] MEDS: Tamsulosin HCL 0.4 MG CAPSULE PO (10:38)
[2022-04-23] MEDS: LORazepam 0.5 MG TABLET PO ×3 (10:38→21:28)
[2022-04-23] MEDS: Venlafaxine HCl ER 150 MG CAP.ER.24H PO (10:38)
--- NOTE | 2022-04-23 15:52 | P.PNPSI_ITS ---
Subjective Subjective Date of Service: 04/23/22 Reason For Visit: MDD Recurrent Episode Severe PTSD Subjective Notes: Conditional Voluntary Interim History: pt quite depressed odd intrusive thoughts Diagnostics Vital Signs (24Hr): Vital Signs - 24 hr 04/22/22 20:00 04/23/22 06:00 Temperature 97.6 F 97.5 F Pulse Rate 92 86 Respiratory Rate 18 16 Blood Pressure 111/68 113/56 L Pulse Oximetry 96 97 Oxygen Delivery Method Room Air Room Air BMI result Body Mass Index 27.3 Labs 04/22/22 09:15 Labs: Laboratory Results - last 48 hr 04/22/22 04/22/22 09:15 14:25 Sodium 142 Potassium 3.9 Chloride 110 H Carbon Dioxide 27 Anion Gap 9 L BUN 13 Creatinine 1.07 Estim Creat Clear Calc 62.6 Estimated GFR > 60 Random Glucose 190 H Calcium 8.7 Total Bilirubin 0.6 AST 16 ALT 29 Alkaline Phosphatase 72 Total Protein 5.2 L Albumin 3.5 Urine Color Yellow Urine Appearance Clear Urine pH 6.5 Ur Specific [place] <= 1.005 Urine Protein Negative Urine Glucose (UA) Negative Urine Ketones Negative Urine Blood Trace H Urine Nitrite Negative Ur Leukocyte Esterase Large (3+) H Urine RBC 0-2 Urine WBC >50 H Ur Squamous Epith Cells 0-2 Urine Bacteria None Seen Hyaline Casts 0-2 Medications Medications Current Medications Acetaminophen (Acetaminophen 325 Mg Tablet) 650 mg PO Q6H PRN PRN Reason: Headache/Pain Mild Scale (1-3) Last Admin: 04/22/22 04:01 Dose: 650 mg Al Hydroxide/Mg Hydroxide (Magnesium Hydrox/Alum Hydrox 30 Ml Oral.Susp) 30 ml PO Q6H PRN PRN Reason: Heartburn/Nausea Atorvastatin Calcium (Atorvastatin Calcium 20 Mg Tablet) 20 mg PO BEDTIME [facility] Last Admin: 04/22/22 20:37 Dose: 20 mg Clozapine (Clozapine 100 Mg Tablet) 100 mg PO BEDTIME [facility] Last Admin: 04/22/22 20:39 Dose: 100 mg Clozapine (Clozapine 25 Mg Tablet) 75 mg PO BEDTIME [facility] Last Admin: 04/22/22 20:37 Dose: 75 mg Finasteride (Finasteride 5 Mg Tablet) 5 mg PO DAILY [facility] Last Admin: 04/23/22 10:38 Dose: 5 mg [place] Carbonate ([place] Carbonate Er 300 Mg Tablet.Er) 600 mg PO BEDTIME [facility] Last Admin: 04/22/22 20:38 Dose: 600 mg Lorazepam (Lorazepam 0.5 Mg Tablet) 0.5 mg PO TID [facility] Last Admin: 04/23/22 14:00 Dose: 0.5 mg Lorazepam (Lorazepam 1 Mg Tablet) 1 mg PO Q4H PRN PRN Reason: Anxiety Last Admin: 04/22/22 04:03 Dose: 1 mg Magnesium Hydroxide (Milk Of Magnesia 30 Ml Oral.Susp) 30 ml PO DAILY PRN PRN Reason: Constipation Melatonin (Melatonin 3 Mg Tablet) 6 mg PO BEDTIME [facility] Last Admin: 04/22/22 20:36 Dose: 6 mg Mirtazapine (Mirtazapine 30 Mg Tablet) 30 mg PO BEDTIME [facility] Last Admin: 04/22/22 20:37 Dose: 30 mg Senna (Sennosides 8.6 Mg Tablet) 17.2 mg PO BEDTIME PRN PRN Reason: constipation Tamsulosin HCl (Tamsulosin Hcl 0.4 Mg Capsule) 0.4 mg PO DAILY [facility] Last Admin: 04/23/22 10:38 Dose: 0.4 mg Trazodone HCl (Trazodone Hcl 50 Mg Tablet) 50 mg PO BEDTIME MRX1 PRN PRN Reason: Insomnia Last Admin: 04/12/22 20:31 Dose: 50 mg Venlafaxine HCl (Venlafaxine Hcl Er 75 Mg Cap.Er.24h) 75 mg PO DAILY [facility] Allergies Allergies Allergy/AdvReac Type Severity Reaction Status Date / Time Penicillins Allergy Rash Verified 04/11/22 00:44 Assessment & Plan Assessment & Plan (1) Major depressive disorder with psychotic features: Status: Acute Code(s): F32.3 - Major depressive disorder, single episode, severe with psychotic features Plan Patient is 72-year-old male with PMH significant for HTN, HLD, BPH and severe depression was seen for an admission history and physical to the [facility]. Patient denies any acute medical complaints. BPH Continue finasteride, tamsulosin HTN Pt previously on Losartan 50mg qd, last filled 11/07/21 Currently not anti-hypertensives Monitor BP, if remains elevated restart Losartan HLD Pt previously on atorvastatin 20mg q bedtime, last filled 05/30/21 Currently not on cholesterol medication Continue to hold atorvastatin, follow-up outpatient with PCP Thank you for allowing us to participate in the care of this patient. Signing off at this time. Please contact us if there are any acute complaints or concerns. Plan 1. Gather collateral information. 2. Continue [place] was prescribed. 3. We will discuss the possibilities of other antidepressants. 4. Increase Clozaril up to 125 mg po qhs on Apr 13. We will continue with the titration of Clozaril up to 200 mg daily. Clozaril is now up to 150 mg q.h.s. on April 15. And we will change up to Clozaril 1 wants 175 mg on April 17. 5. Effexor is increased to 112.5 mg on April 1604/17 continue tx. 04/18/21 quite depressed hopeless helpless si if not in hosp setting ? consider ect 04/19/22 Pt seen chart reviewed ativan prn helpful to dec anxiety irritability will try and coordinate with outpt psych ? hx tx response 04/20/22 Pt seen lorazepam tid consider ect 04/21/2022 Discussed option of potentially CT trying to get data from prior hospitalization on Effexor mirtazapine clozaril lithium 04/22/2022 Patient quite depressed anxious hopeless helpless thoughts at times he would be better off but denies plan or intent setting he is asking for help. He is asking about ECT his outpatient psychiatrist did not know his response to ECT previously patient had been generally stable until clozapine had been lowered from 100-50 present dose 175 which he seems to be tolerating Effexor had been increased to 150 mg 04/23/22 ck brain mri review records consider ect lower effexorseems more agitated ? lewey body Reason for contiued inpatient stay Substantial Risk for: harm to self Time Spent With Patient Time: Total time managing care of this patient today ____ minutes.
[2022-04-23 19:35] VITALS: BP 139/84; PULSE 74; RESP 18; TEMP 36.6; O2SAT 96
[2022-04-23] MEDS: Atorvastatin Calcium 20 MG TABLET PO (21:26)
[2022-04-23] MEDS: cloZAPine 100 MG TABLET PO (21:26)
[2022-04-23] MEDS: Mirtazapine 30 MG TABLET PO (21:26)
[2022-04-23] MEDS: Lithium Carbonate ER 300 MG TABLET.ER 600 MG PO (21:27)
[2022-04-23] MEDS: cloZAPine 25 MG TABLET 75 MG PO (21:27)
[2022-04-23] MEDS: Melatonin 3 MG TABLET 6 MG PO (21:28)
--- NOTE | 2022-04-24 | EEG_ITS ---
FINDINGS: The waking background activity consists of 7 Hz diffuse moderate voltage theta occasionally getting up to 8 Hz posteriorly with some scattered 6 Hz frequency as well. Photic stimulation is without activation. Hyperventilation was omitted. No paroxysmal features identified. IMPRESSION: This EEG is considered mildly abnormal. There is a mild background slowing consistent with mild encephalopathic process. No focal abnormalities or paroxysmal features are seen. MD JU Hatfield/MODL / [id number]
[2022-04-24 06:00] VITALS: BP 133/74; PULSE 85; TEMP 36.2; O2SAT 94
[2022-04-24] MEDS: Venlafaxine HCl ER 75 MG CAP.ER.24H PO (08:34)
[2022-04-24] MEDS: Tamsulosin HCL 0.4 MG CAPSULE PO (08:34)
[2022-04-24] MEDS: LORazepam 0.5 MG TABLET PO ×3 (08:35→20:43)
[2022-04-24] MEDS: Finasteride 5 MG TABLET PO (08:35)
--- NOTE | 2022-04-24 16:35 | HO.PSYCHPN ---
Subjective Subjective Date of Service: 04/24/22 Reason For Visit: MDD Recurrent Episode Severe PTSD Subjective Notes: Conditional Voluntary Interim History: Patient remains depressed and anxious at times intrusive images of when he felt he had been possessed limited ability to see that this was part of his mental illness versus some form of spiritual for possession feels he would self-harm if not in safe setting such as inpatient but feels safe here trying to process that he in his will not be getting back together Ativan has been useful Medication Compliance: Yes Review of Systems Cogwheeling rigidity which is unusual with clozapine Mental Status Exam Mental Status Exam Patient Appearance: Well Grooomed Patient Orientation: Person, Place, Time and Situation Level of Consciousness: Awake and Appropriate Patient Behavior: Appropriate Behavior Comments: Tense looking in appearance pacing anxious Mood Description: Depressed, Anxious, Blunted and Apprehensive Affect Description: Appropriate, Constricted, Depressed and Anxious Patient Cognition Impaired: No Ability to Follow Directions: Good Speech Pattern: Clear Memory Description: Intact Hallucinations: None Delusions: Being Controlled Thought Process: Intact and Goal Oriented Thought Content: positive for Goal Oriented, positive for Preoccupation, positive for Suicidal Ideation (pos if not in hosp setting ) and negative for Homicidal Ideation Depressive Symptoms: Increased Anxiety, Increased Irritability, Hopelessness, Increased Fatigue, Loss of Energy and Difficulty Concentrating Judgement: Good Diagnostics Vital Signs (24Hr): Vital Signs - 24 hr 04/23/22 19:35 04/24/22 06:00 Temperature 97.9 F 97.2 F Pulse Rate 74 85 Respiratory Rate 18 Blood Pressure 139/84 133/74 Pulse Oximetry 96 94 Oxygen Delivery Method Room Air Room Air BMI result Body Mass Index 27.3 Labs 04/22/22 09:15 Imaging Radiology Impressions: ITS Impressions Brain MRI 04/24/22 09:39 IMPRESSION: - No acute intracranial findings. No acute infarcts. - There is global cerebral volume loss and there is mild chronic microangiopathy. Medications Medications Current Medications Acetaminophen (Acetaminophen 325 Mg Tablet) 650 mg PO Q6H PRN PRN Reason: Headache/Pain Mild Scale (1-3) Last Admin: 04/22/22 04:01 Dose: 650 mg Al Hydroxide/Mg Hydroxide (Magnesium Hydrox/Alum Hydrox 30 Ml Oral.Susp) 30 ml PO Q6H PRN PRN Reason: Heartburn/Nausea Atorvastatin Calcium (Atorvastatin Calcium 20 Mg Tablet) 20 mg PO BEDTIME [facility] Last Admin: 04/23/22 21:26 Dose: 20 mg Clozapine (Clozapine 100 Mg Tablet) 100 mg PO BEDTIME [facility] Last Admin: 04/23/22 21:26 Dose: 100 mg Clozapine (Clozapine 25 Mg Tablet) 75 mg PO BEDTIME [facility] Last Admin: 04/23/22 21:27 Dose: 75 mg Finasteride (Finasteride 5 Mg Tablet) 5 mg PO DAILY [facility] Last Admin: 04/24/22 08:35 Dose: 5 mg [place] Carbonate ([place] Carbonate Er 300 Mg Tablet.Er) 600 mg PO BEDTIME [facility] Last Admin: 04/23/22 21:27 Dose: 600 mg Lorazepam (Lorazepam 0.5 Mg Tablet) 0.5 mg PO TID [facility] Last Admin: 04/24/22 14:10 Dose: 0.5 mg Lorazepam (Lorazepam 1 Mg Tablet) 1 mg PO Q4H PRN PRN Reason: Anxiety Last Admin: 04/22/22 04:03 Dose: 1 mg Magnesium Hydroxide (Milk Of Magnesia 30 Ml Oral.Susp) 30 ml PO DAILY PRN PRN Reason: Constipation Melatonin (Melatonin 3 Mg Tablet) 6 mg PO BEDTIME [facility] Last Admin: 04/23/22 21:28 Dose: 6 mg Mirtazapine (Mirtazapine 30 Mg Tablet) 30 mg PO BEDTIME [facility] Last Admin: 04/23/22 21:26 Dose: 30 mg Senna (Sennosides 8.6 Mg Tablet) 17.2 mg PO BEDTIME PRN PRN Reason: constipation Tamsulosin HCl (Tamsulosin Hcl 0.4 Mg Capsule) 0.4 mg PO DAILY [facility] Last Admin: 04/24/22 08:34 Dose: 0.4 mg Trazodone HCl (Trazodone Hcl 50 Mg Tablet) 50 mg PO BEDTIME MRX1 PRN PRN Reason: Insomnia Last Admin: 04/12/22 20:31 Dose: 50 mg Venlafaxine HCl (Venlafaxine Hcl Er 75 Mg Cap.Er.24h) 75 mg PO DAILY [facility] Last Admin: 04/24/22 08:34 Dose: 75 mg Allergies Allergies Allergy/AdvReac Type Severity Reaction Status Date / Time Penicillins Allergy Rash Verified 04/11/22 00:44 Assessment & Plan Assessment & Plan (1) Major depressive disorder with psychotic features: Status: Acute Code(s): F32.3 - Major depressive disorder, single episode, severe with psychotic features Plan Patient is 72-year-old male with PMH significant for HTN, HLD, BPH and severe depression was seen for an admission history and physical to [facility]. Patient denies any acute medical complaints. BPH Continue finasteride, tamsulosin HTN Pt previously on Losartan 50mg qd, last filled 11/07/21 Currently not anti-hypertensives Monitor BP, if remains elevated restart Losartan HLD Pt previously on atorvastatin 20mg q bedtime, last filled 05/30/21 Currently not on cholesterol medication Continue to hold atorvastatin, follow-up outpatient with PCP Thank you for allowing us to participate in the care of this patient. Signing off at this time. Please contact us if there are any acute complaints or concerns. Plan 1. Gather collateral information. 2. Continue [place] was prescribed. 3. We will discuss the possibilities of other antidepressants. 4. Increase Clozaril up to 125 mg po qhs on Apr 13. We will continue with the titration of Clozaril up to 200 mg daily. Clozaril is now up to 150 mg q.h.s. on April 15. And we will change up to Clozaril 1 wants 175 mg on April 17. 5. Effexor is increased to 112.5 mg on April 1604/17 continue tx. 04/18/21 quite depressed hopeless helpless si if not in hosp setting ? consider ect 04/19/22 Pt seen chart reviewed ativan prn helpful to dec anxiety irritability will try and coordinate with outpt psych ? hx tx response 04/20/22 Pt seen lorazepam tid consider ect 04/21/2022 [address]iscussed option of potentially CT trying to get data from prior hospitalization on Effexor mirtazapine clozaril lithium 04/22/2022 Patient quite depressed anxious hopeless helpless thoughts at times he would be better off but denies plan or intent setting he is asking for help. He is asking about ECT his outpatient psychiatrist did not know his response to ECT previously patient had been generally stable until clozapine had been lowered from 100-50 present dose 175 which he seems to be tolerating Effexor had been increased to 150 mg 04/23/22 ck brain mri review records consider ect lower effexorseems more agitated ? vesta body 04/24/2022 Brain MRI was completed and shows some microvascular changes nothing remarkable EEG ordered and neuro consult. Unclear why patient has cogwheeling on clozapine unusual for lithium postvoid residual unremarkable Considering ECT however unclear if was helpful previously unclear technique patient denies active thoughts of self-harm in this setting Patient educated on: diagnosis, medication risk/benefits, ECT and therapeutic strategies Reason for contiued inpatient stay Substantial Risk for: harm to self and rapid decompensation Time Spent With Patient Time: Total time managing care of this patient today ____ minutes.
--- NOTE | 2022-04-24 17:48 | PC.NURSE ---
Dr Newman notified of U/A C&S results, indicating UTI. Dr Newman indicated that he would be contacting Dr Choudhary; Hodan ordered and will be started when received from pharmacy.
[2022-04-24 18:00] VITALS: BP 143/78; PULSE 77; RESP 18; TEMP 36.6; O2SAT 94
--- NOTE | 2022-04-24 19:15 | PC.NURSE ---
Pt reported an allergy to Levaquin when approachd wih this med. Allergy added to allergy list. Dr Newman notified of allergy and need for alternative antibiotic.
[2022-04-24] MEDS: Lithium Carbonate ER 300 MG TABLET.ER 600 MG PO (20:43)
[2022-04-24] MEDS: Atorvastatin Calcium 20 MG TABLET PO (20:43)
[2022-04-24] MEDS: Mirtazapine 30 MG TABLET PO (20:44)
[2022-04-24] MEDS: Melatonin 3 MG TABLET 6 MG PO (20:44)
[2022-04-24] MEDS: cloZAPine 100 MG TABLET PO (20:44)
[2022-04-24] MEDS: cloZAPine 25 MG TABLET 75 MG PO (20:44)
[2022-04-25] MEDS: Acetaminophen 325 MG TABLET 650 MG PO (04:36)
[2022-04-25 06:00] VITALS: BP 137/75; PULSE 84; RESP 16; O2SAT 93
[2022-04-25 07:01] LABS: Neut%MD 56.5 %; Neutrophils Absolute Auto 3.7 x10*3/uL (2.0-8.3); WBCANC 6.5 X10*3/uL
[2022-04-25] MEDS: Finasteride 5 MG TABLET PO (08:49)
[2022-04-25] MEDS: LORazepam 0.5 MG TABLET PO (08:49)
[2022-04-25] MEDS: Tamsulosin HCL 0.4 MG CAPSULE PO (08:49)
[2022-04-25] MEDS: Venlafaxine HCl ER 75 MG CAP.ER.24H PO (08:49)
--- NOTE | 2022-04-25 09:30 | P.PNPSI_ITS ---
Subjective Subjective Date of Service: 04/25/22 Reason For Visit: MDD Recurrent Episode Severe PTSD Subjective Notes: Conditional Voluntary Interim History: Patient was seen and discussed in rounds today. Records and plans were reviewed. He feels that he is no better than when he came in. He is isolative and in his room a lot. UA did not indicate a UTI and id once his Levaquin discontinued. He did have an MRI which was negative. EEG is to be done and ECT is being considered. No other changes were made today Review of Systems Review of Systems Patient has no acute medical complaints at this time Yes all other systems are reviewed and are negative Diagnostics Vital Signs (24Hr): Vital Signs - 24 hr 04/24/22 18:00 Temperature 97.9 F Pulse Rate 77 Respiratory Rate 18 Blood Pressure 143/78 H Pulse Oximetry 94 Oxygen Delivery Method Room Air BMI result Body Mass Index 27.3 Labs 04/22/22 09:15 Labs: Laboratory Results - last 48 hr 04/25/22 03:33 Absolute Neuts (auto) 3.7 Imaging Radiology Impressions: ITS Impressions Brain MRI 04/24/22 09:39 IMPRESSION: - No acute intracranial findings. No acute infarcts. - There is global cerebral volume loss and there is mild chronic microangiopathy. Medications Medications Current Medications Acetaminophen (Acetaminophen 325 Mg Tablet) 650 mg PO Q6H PRN PRN Reason: Headache/Pain Mild Scale (1-3) Last Admin: 04/25/22 04:36 Dose: 650 mg Al Hydroxide/Mg Hydroxide (Magnesium Hydrox/Alum Hydrox 30 Ml Oral.Susp) 30 ml PO Q6H PRN PRN Reason: Heartburn/Nausea Atorvastatin Calcium (Atorvastatin Calcium 20 Mg Tablet) 20 mg PO BEDTIME [facility] Last Admin: 04/24/22 20:43 Dose: 20 mg Clozapine (Clozapine 100 Mg Tablet) 100 mg PO BEDTIME [facility] Last Admin: 04/24/22 20:44 Dose: 100 mg Clozapine (Clozapine 25 Mg Tablet) 75 mg PO BEDTIME [facility] Last Admin: 04/24/22 20:44 Dose: 75 mg Finasteride (Finasteride 5 Mg Tablet) 5 mg PO DAILY [facility] Last Admin: 04/25/22 08:49 Dose: 5 mg Levofloxacin (Levofloxacin 500 Mg Tablet) 500 mg PO Q24H [facility] [place] Carbonate ([place] Carbonate Er 300 Mg Tablet.Er) 600 mg PO BEDTIME [facility] Last Admin: 04/24/22 20:43 Dose: 600 mg Lorazepam (Lorazepam 0.5 Mg Tablet) 0.5 mg PO TID [facility] Last Admin: 04/25/22 08:49 Dose: 0.5 mg Lorazepam (Lorazepam 1 Mg Tablet) 1 mg PO Q4H PRN PRN Reason: Anxiety Last Admin: 04/22/22 04:03 Dose: 1 mg Magnesium Hydroxide (Milk Of Magnesia 30 Ml Oral.Susp) 30 ml PO DAILY PRN PRN Reason: Constipation Melatonin (Melatonin 3 Mg Tablet) 6 mg PO BEDTIME [facility] Last Admin: 04/24/22 20:44 Dose: 6 mg Mirtazapine (Mirtazapine 30 Mg Tablet) 30 mg PO BEDTIME [facility] Last Admin: 04/24/22 20:44 Dose: 30 mg Senna (Sennosides 8.6 Mg Tablet) 17.2 mg PO BEDTIME PRN PRN Reason: constipation Tamsulosin HCl (Tamsulosin Hcl 0.4 Mg Capsule) 0.4 mg PO DAILY [facility] Last Admin: 04/25/22 08:49 Dose: 0.4 mg Trazodone HCl (Trazodone Hcl 50 Mg Tablet) 50 mg PO BEDTIME MRX1 PRN PRN Reason: Insomnia Last Admin: 04/12/22 20:31 Dose: 50 mg Venlafaxine HCl (Venlafaxine Hcl Er 75 Mg Cap.Er.24h) 75 mg PO DAILY [facility] Last Admin: 04/25/22 08:49 Dose: 75 mg Allergies Allergies Allergy/AdvReac Type Severity Reaction Status Date / Time levofloxacin [From Levaquin] Allergy Rash Verified 04/24/22 18:49 Penicillins Allergy Rash Verified 04/11/22 00:44 Assessment & Plan Assessment & Plan (1) Major depressive disorder with psychotic features: Status: Acute Code(s): F32.3 - Major depressive disorder, single episode, severe with psychotic features Plan Patient is 72-year-old male with PMH significant for HTN, HLD, BPH and severe depression was seen for an admission history and physical to the [facility]. Patient denies any acute medical complaints. BPH Continue finasteride, tamsulosin HTN Pt previously on Losartan 50mg qd, last filled 11/07/21 Currently not anti-hypertensives Monitor BP, if remains elevated restart Losartan HLD Pt previously on atorvastatin 20mg q bedtime, last filled 05/30/21 Currently not on cholesterol medication Continue to hold atorvastatin, follow-up outpatient with PCP Thank you for allowing us to participate in the care of this patient. Signing off at this time. Please contact us if there are any acute complaints or concerns. Plan 1. Gather collateral information. 2. Continue [place] was prescribed. 3. We will discuss the possibilities of other antidepressants. 4. Increase Clozaril up to 125 mg po qhs on Apr 13. We will continue with the titration of Clozaril up to 200 mg daily. Clozaril is now up to 150 mg q.h.s. on April 15. And we will change up to Clozaril 1 wants 175 mg on April 17. 5. Effexor is increased to 112.5 mg on April 1604/17 continue tx. 04/18/21 quite depressed hopeless helpless si if not in hosp setting ? consider ect 04/19/22 Pt seen chart reviewed ativan prn helpful to dec anxiety irritability will try and coordinate with outpt psych ? hx tx response 04/20/22 Pt seen lorazepam tid consider ect 04/21/2022 Discussed option of potentially CT trying to get data from prior hospitalization on Effexor mirtazapine clozaril lithium 04/22/2022 Patient quite depressed anxious hopeless helpless thoughts at times he would be better off but denies plan or intent setting he is asking for help. He is asking about ECT his outpatient psychiatrist did not know his response to ECT previously patient had been generally stable until clozapine had been lowered from 100-50 present dose 175 which he seems to be tolerating Effexor had been increased to 150 mg 04/23/22 ck brain mri review records consider ect lower effexorseems more agitated ? vesta body 04/25/2022: Continue current regimen and plans. RODOLFO Pettit Reason for contiued inpatient stay Substantial Risk for: inability to function Time Spent With Patient Time: Total time managing care of this patient today ____ minutes.
--- NOTE | 2022-04-25 11:55 | P.CNNE_ITS ---
History of Present Illness Data of Consult Service Date: 04/25/22 Primary Care Provider: Nonstaff Physician HPI Reason for consult: Depression. ? Lewy Body disease This is a 72-year-old male with PMH significant for HTN, HLD, BPH and severe depressionWith multiple suicidal attempts, most recently slashing his wrists and stabbing himself. He is now readmitted with the parts of stabbing his to and then committing suicide with a knife. He has had multiple ECT treatments in the past. He sometimes perceives evil spiritual encounters. He has been on lithium and Clozaril. I was asked to evaluate him regarding the possibility of Lewy body disease. MRI of the brain done on 04/24/22 shows global atrophy is related and mild microvascular disease not unusual for this age. No visual or auditory hallucination. Two episodes of perceing evil presence. No motor problems, slowness, rigidity or gait problems. No periods of unresponsiveness. Review of Systems Review of Systems: Patient has no acute medical complaints at this time Yes all other systems are reviewed and are negative PMFSH Past Medical History Medical History Anxiety Depression Glaucoma Hypercholesteremia Hypertension Laceration of abdomen Laceration of chest Laceration of wrist Surgical History Surgical History History of laparotomy Social History Social History Household Members: Spouse Housing: House Are you a primary insurance healthcare consultant to a significant other at home: No Do you presently have visiting nurse or other home services: No Patient Tobacco Use Status: Former Tobacco user Quit Date: 03/2200 Tobacco use type: Cigarette and Cigar Smoked in Last 30 Days: No e-Cigarette/Vaping Use: Never Used Patient Interested in Nicotine Replacement: No Use of substances other than those prescribed or required for medical reasons: No Currently Displaying Signs/Symptoms of Drug Intoxication Withdrawal: No Any prior treatment program specific to substance use: No Advance Directives: No Advance Directives Information Provided: No Suicidal Behavior: History of suicide attemps Current/Past Psychiatric Disorders: Alcohol abuse, Chronic mental illess and Mood disorder Phan Symptoms: Impulsivity Family History: Attempts Change in Treatment: Change in provider Access to Firearms: No Do you have thoughts of harming others: None Do you have a plan to hurt others: No Plan Do you have the means to hurt others: Yes (pervasive thoughts of using kitchen knife to harm/kill and self) Recently lost weight without trying: No Nutrition Risks: No Nutritional Risk service: No Sexual orientation: Straight/Heterosexual Gender identity: Male Meds Allergies Allergy/AdvReac Type Severity Reaction Status Date / Time levofloxacin [From Levaquin] Allergy Rash Verified 04/24/22 18:49 Penicillins Allergy Rash Verified 04/11/22 00:44 Active Medications: Current Medications Acetaminophen (Acetaminophen 325 Mg Tablet) 650 mg PO Q6H PRN PRN Reason: Headache/Pain Mild Scale (1-3) Last Admin: 04/25/22 04:36 Dose: 650 mg Al Hydroxide/Mg Hydroxide (Magnesium Hydrox/Alum Hydrox 30 Ml Oral.Susp) 30 ml PO Q6H PRN PRN Reason: Heartburn/Nausea Atorvastatin Calcium (Atorvastatin Calcium 20 Mg Tablet) 20 mg PO BEDTIME [facility] Last Admin: 04/24/22 20:43 Dose: 20 mg Clozapine (Clozapine 100 Mg Tablet) 100 mg PO BEDTIME [facility] Last Admin: 04/24/22 20:44 Dose: 100 mg Clozapine (Clozapine 25 Mg Tablet) 75 mg PO BEDTIME [facility] Last Admin: 04/24/22 20:44 Dose: 75 mg Finasteride (Finasteride 5 Mg Tablet) 5 mg PO DAILY [facility] Last Admin: 04/25/22 08:49 Dose: 5 mg [place] Carbonate ([place] Carbonate Er 300 Mg Tablet.Er) 600 mg PO BEDTIME [facility] Last Admin: 04/24/22 20:43 Dose: 600 mg Lorazepam (Lorazepam 0.5 Mg Tablet) 0.5 mg PO TID [facility] Last Admin: 04/25/22 08:49 Dose: 0.5 mg Lorazepam (Lorazepam 1 Mg Tablet) 1 mg PO Q4H PRN PRN Reason: Anxiety Last Admin: 04/22/22 04:03 Dose: 1 mg Magnesium Hydroxide (Milk Of Magnesia 30 Ml Oral.Susp) 30 ml PO DAILY PRN PRN Reason: Constipation Melatonin (Melatonin 3 Mg Tablet) 6 mg PO BEDTIME [facility] Last Admin: 04/24/22 20:44 Dose: 6 mg Mirtazapine (Mirtazapine 30 Mg Tablet) 30 mg PO BEDTIME [facility] Last Admin: 04/24/22 20:44 Dose: 30 mg Senna (Sennosides 8.6 Mg Tablet) 17.2 mg PO BEDTIME PRN PRN Reason: constipation Tamsulosin HCl (Tamsulosin Hcl 0.4 Mg Capsule) 0.4 mg PO DAILY [facility] Last Admin: 04/25/22 08:49 Dose: 0.4 mg Trazodone HCl (Trazodone Hcl 50 Mg Tablet) 50 mg PO BEDTIME MRX1 PRN PRN Reason: Insomnia Last Admin: 04/12/22 20:31 Dose: 50 mg Venlafaxine HCl (Venlafaxine Hcl Er 75 Mg Cap.Er.24h) 75 mg PO DAILY [facility] Last Admin: 04/25/22 08:49 Dose: 75 mg Home Medications Medication Instructions Recorded Confirmed Last Taken Type clozapine 50 mg tablet 1 tab PO BEDTIME 04/11/22 04/11/22 04/10/22 History finasteride 5 mg tablet 1 tab PO DAILY 04/11/22 04/11/22 Unknown History lithium carbonate 300 mg 1 tab PO BEDTIME 04/11/22 04/11/22 04/10/22 History tablet,extended release mirtazapine 30 mg tablet 1 tab PO BEDTIME 04/11/22 04/11/22 Unknown History tamsulosin 0.4 mg capsule 1 cap PO DAILY 04/11/22 04/11/22 Unknown History venlafaxine 75 mg capsule,extended 1 cap PO QAM 04/11/22 04/11/22 Unknown History release 24 hr Physical Exam 2 Vital Signs: Vital Signs: Last Vital Signs Temp 97.9 F 04/24/22 18:00 Pulse 84 04/25/22 06:00 Resp 16 04/25/22 06:00 BP 137/75 04/25/22 06:00 Pulse Ox 93 04/25/22 06:00 O2 Del Method 04/25/22 06:00 BMI result Body Mass Index 27.3 Neuro: Other: Normal neurological exam with no Parkinsonian features, almetered mentation, tremor, rigidity or bradykinesia. No hallucinations Results Labs 04/22/22 09:15 Microbiology Microbiology Results: Microbiology 04/22/22 Unknown Urine clean catch - Urine wong top Urine Culture - Final Enterococcus faecalis Assessment and Plan (1) Major depressive disorder with psychotic features: Status: Acute No clinical evidence to support a diagnosis of Lewy body disease. MRI appropriate for age. Plan Patient is 72-year-old male with PMH significant for HTN, HLD, BPH and severe depression was seen for an admission history and physical to the [facility]. Patient denies any acute medical complaints. BPH Continue finasteride, tamsulosin HTN Pt previously on Losartan 50mg qd, last filled 11/07/21 Currently not anti-hypertensives Monitor BP, if remains elevated restart Losartan HLD Pt previously on atorvastatin 20mg q bedtime, last filled 05/30/21 Currently not on cholesterol medication Continue to hold atorvastatin, follow-up outpatient with PCP Thank you for allowing us to participate in the care of this patient. Signing off at this time. Please contact us if there are any acute complaints or concerns. Plan 1. Gather collateral information. 2. Continue [place] was prescribed. 3. We will discuss the possibilities of other antidepressants. 4. Increase Clozaril up to 125 mg po qhs on Apr 13. We will continue with the titration of Clozaril up to 200 mg daily. Clozaril is now up to 150 mg q.h.s. on April 15. And we will change up to Clozaril 1 wants 175 mg on April 17. 5. Effexor is increased to 112.5 mg on April 1604/17 continue tx. 04/18/21 quite depressed hopeless helpless si if not in hosp setting ? consider ect 04/19/22 Pt seen chart reviewed ativan prn helpful to dec anxiety irritability will try and coordinate with outpt psych ? hx tx response 04/20/22 Pt seen lorazepam tid consider ect 04/21/2022 Discussed option of potentially CT trying to get data from prior hospitalization on Effexor mirtazapine clozaril lithium 04/22/2022 Patient quite depressed anxious hopeless helpless thoughts at times he would be better off but denies plan or intent setting he is asking for help. He is asking about ECT his outpatient psychiatrist did not know his response to ECT previously patient had been generally stable until clozapine had been lowered from 100-50 present dose 175 which he seems to be tolerating Effexor had been increased to 150 mg 04/23/22 ck brain mri review records consider ect lower effexorseems more agitated ? vesta body 04/25/2022: Continue current regimen and plans. RODOLFO Pettit Time Spent With Patient Time: Total time managing care of this patient today ____ minutes. Procedures Date of Service Date of Service: 04/25/22
[2022-04-25] MEDS: LORazepam 1 MG TABLET PO (12:56)
[2022-04-25 18:00] VITALS: BP 157/86; PULSE 82; RESP 16; TEMP 36.6; O2SAT 97
[2022-04-25] MEDS: Lithium Carbonate ER 300 MG TABLET.ER 600 MG PO (20:17)
[2022-04-25] MEDS: Mirtazapine 30 MG TABLET PO (20:17)
[2022-04-25] MEDS: cloZAPine 25 MG TABLET 75 MG PO (20:17)
[2022-04-25] MEDS: Melatonin 3 MG TABLET 6 MG PO (20:17)
[2022-04-25] MEDS: cloZAPine 100 MG TABLET PO (20:18)
[2022-04-25] MEDS: Atorvastatin Calcium 20 MG TABLET PO (20:18)
[2022-04-26] MEDS: Acetaminophen 325 MG TABLET 650 MG PO (06:02)
--- NOTE | 2022-04-26 08:56 | P.PNPSI_ITS ---
Subjective Subjective Date of Service: 04/26/22 Reason For Visit: MDD Recurrent Episode Severe PTSD Subjective Notes: Conditional Voluntary Interim History: Patient was seen and discussed in rounds today. Records and plans were reviewed. He continues to feel depressed. He is out some and social when in the milieu. He continues to feel depressed and is aware that he is being worked up in preparation for ECT. Continues to have some anxiety and p.r.n. Ativan has been helpful. No changes were made today Medication Compliance: Yes Side effects from medications: No Attending Groups: Intermittent Review of Systems Review of Systems Patient has no acute medical complaints at this time Yes all other systems are reviewed and are negative Mental Status Exam Mental Status Exam Narrative: In today's visit he is alert, pleasant and interactive. Moderate eye contact. Soft-spoken speech. Affect is appropriate and constricted. Moderate depression present. No signs of psychosis. No active suicidal ideations but continues to have some ideations, passively. No dangerous behaviors. Cognitively he has slow thought processes. Judgment is intact Diagnostics Vital Signs (24Hr): Vital Signs - 24 hr 04/25/22 18:00 Temperature 97.8 F Pulse Rate 82 Respiratory Rate 16 Blood Pressure 157/86 H Pulse Oximetry 97 Oxygen Delivery Method Room Air BMI result Body Mass Index 27.3 Labs 04/22/22 09:15 Labs: Laboratory Results - last 48 hr 04/25/22 03:33 Absolute Neuts (auto) 3.7 Imaging Radiology Impressions: ITS Impressions Brain MRI 04/24/22 09:39 IMPRESSION: - No acute intracranial findings. No acute infarcts. - There is global cerebral volume loss and there is mild chronic microangiopathy. Medications Medications Current Medications Acetaminophen (Acetaminophen 325 Mg Tablet) 650 mg PO Q6H PRN PRN Reason: Headache/Pain Mild Scale (1-3) Last Admin: 04/26/22 06:02 Dose: 650 mg Al Hydroxide/Mg Hydroxide (Magnesium Hydrox/Alum Hydrox 30 Ml Oral.Susp) 30 ml PO Q6H PRN PRN Reason: Heartburn/Nausea Atorvastatin Calcium (Atorvastatin Calcium 20 Mg Tablet) 20 mg PO BEDTIME DIANNE Last Admin: 04/25/22 20:18 Dose: 20 mg Clozapine (Clozapine 100 Mg Tablet) 100 mg PO BEDTIME DIANNE Last Admin: 04/25/22 20:18 Dose: 100 mg Clozapine (Clozapine 25 Mg Tablet) 75 mg PO BEDTIME DIANNE Last Admin: 04/25/22 20:17 Dose: 75 mg Finasteride (Finasteride 5 Mg Tablet) 5 mg PO DAILY [facility] Last Admin: 04/25/22 08:49 Dose: 5 mg [place] Carbonate ([place] Carbonate Er 300 Mg Tablet.Er) 600 mg PO BEDTIME DIANNE Last Admin: 04/25/22 20:17 Dose: 600 mg Lorazepam (Lorazepam 0.5 Mg Tablet) 0.5 mg PO TID DIANNE Lorazepam (Lorazepam 1 Mg Tablet) 1 mg PO Q4H PRN PRN Reason: Anxiety Last Admin: 04/25/22 12:56 Dose: 1 mg Magnesium Hydroxide (Milk Of Magnesia 30 Ml Oral.Susp) 30 ml PO DAILY PRN PRN Reason: Constipation Melatonin (Melatonin 3 Mg Tablet) 6 mg PO BEDTIME [facility] Last Admin: 04/25/22 20:17 Dose: 6 mg Mirtazapine (Mirtazapine 30 Mg Tablet) 30 mg PO BEDTIME [facility] Last Admin: 04/25/22 20:17 Dose: 30 mg Senna (Sennosides 8.6 Mg Tablet) 17.2 mg PO BEDTIME PRN PRN Reason: constipation Tamsulosin HCl (Tamsulosin Hcl 0.4 Mg Capsule) 0.4 mg PO DAILY [facility] Last Admin: 04/25/22 08:49 Dose: 0.4 mg Trazodone HCl (Trazodone Hcl 50 Mg Tablet) 50 mg PO BEDTIME MRX1 PRN PRN Reason: Insomnia Last Admin: 04/12/22 20:31 Dose: 50 mg Venlafaxine HCl (Venlafaxine Hcl Er 75 Mg Cap.Er.24h) 75 mg PO DAILY [facility] Last Admin: 04/25/22 08:49 Dose: 75 mg Allergies Allergies Allergy/AdvReac Type Severity Reaction Status Date / Time levofloxacin [From Levaquin] Allergy Rash Verified 04/24/22 18:49 Penicillins Allergy Rash Verified 04/11/22 00:44 Assessment & Plan Assessment & Plan (1) Major depressive disorder with psychotic features: Status: Acute Code(s): F32.3 - Major depressive disorder, single episode, severe with psychotic fea tures Plan Patient is 72-year-old male with PMH significant for HTN, HLD, BPH and severe depression was seen for an admission history and physical to the [facility]. Patient denies any acute medical complaints. BPH Continue finasteride, tamsulosin HTN Pt previously on Losartan 50mg qd, last filled 11/07/21 Currently not anti-hypertensives Monitor BP, if remains elevated restart Losartan HLD Pt previously on atorvastatin 20mg q bedtime, last filled 05/30/21 Currently not on cholesterol medication Continue to hold atorvastatin, follow-up outpatient with PCP Thank you for allowing us to participate in the care of this patient. Signing off at this time. Please contact us if there are any acute complaints or concerns. Plan 1. Gather collateral information. 2. Continue [place] was prescribed. 3. We will discuss the possibilities of other antidepressants. 4. Increase Clozaril up to 125 mg po qhs on Apr 13. We will continue with the titration of Clozaril up to 200 mg daily. Clozaril is now up to 150 mg q.h.s. on April 15. And we will change up to Clozaril 1 wants 175 mg on April 17. 5. Effexor is increased to 112.5 mg on April 1604/17 continue tx. 04/18/21 quite depressed hopeless helpless si if not in hosp setting ? consider ect 04/19/22 Pt seen chart reviewed ativan prn helpful to dec anxiety irritability will try and coordinate with outpt psych ? hx tx response 04/20/22 Pt seen lorazepam tid consider ect 04/21/2022 Discussed option of potentially CT trying to get data from prior hospitalization on Effexor mirtazapine clozaril lithium 04/22/2022 Patient quite depressed anxious hopeless helpless thoughts at times he would be better off but denies plan or intent setting he is asking for help. He is asking about ECT his outpatient psychiatrist did not know his response to ECT previously patient had been generally stable until clozapine had been lowered from 100-50 present dose 175 which he seems to be tolerating Effexor had been increased to 150 mg 04/23/22 ck brain mri review records consider ect lower effexorseems more agitated ? vesta body 04/24/2022 Brain MRI was completed and shows some microvascular changes nothing remarkable EEG ordered and neuro consult. Unclear why patient has cogwheeling on clozapine unusual for lithium postvoid residual unremarkable Considering ECT however unclear if was helpful previously unclear technique patient denies active thoughts of self-harm in this setting 04/25: Continue current regimen and plans 04/26: Continue current regimen and plans Patient educated on: ECT Reason for contiued inpatient stay Substantial Risk for: harm to self and med/psych decompensation Time Spent With Patient Time: Total time managing care of this patient today ____ minutes.
[2022-04-26] MEDS: Finasteride 5 MG TABLET PO (09:26)
[2022-04-26] MEDS: Tamsulosin HCL 0.4 MG CAPSULE PO (09:26)
[2022-04-26] MEDS: Venlafaxine HCl ER 75 MG CAP.ER.24H PO (09:26)
[2022-04-26] MEDS: LORazepam 0.5 MG TABLET PO ×3 (09:26→20:29)
[2022-04-26] MEDS: LORazepam 1 MG TABLET PO (13:31)
[2022-04-26 18:00] VITALS: BP 139/86; PULSE 75; RESP 16; TEMP 36.8; O2SAT 95
[2022-04-26] MEDS: Lithium Carbonate ER 300 MG TABLET.ER 600 MG PO (20:29)
[2022-04-26] MEDS: Mirtazapine 30 MG TABLET PO (20:29)
[2022-04-26] MEDS: Atorvastatin Calcium 20 MG TABLET PO (20:30)
[2022-04-26] MEDS: cloZAPine 25 MG TABLET 75 MG PO (20:30)
[2022-04-26] MEDS: cloZAPine 100 MG TABLET PO (20:30)
[2022-04-26] MEDS: Melatonin 3 MG TABLET 6 MG PO (20:30)
[2022-04-27 08:45] VITALS: BP 120/71; PULSE 78; RESP 18; TEMP 36.6; O2SAT 94
[2022-04-27] MEDS: Venlafaxine HCl ER 75 MG CAP.ER.24H PO (09:28)
[2022-04-27] MEDS: Finasteride 5 MG TABLET PO (09:28)
[2022-04-27] MEDS: LORazepam 0.5 MG TABLET PO ×3 (09:28→21:01)
[2022-04-27] MEDS: Tamsulosin HCL 0.4 MG CAPSULE PO (09:28)
--- NOTE | 2022-04-27 10:33 | P.PNPSI_ITS ---
Subjective Subjective Date of Service: 04/27/22 Reason For Visit: MDD Recurrent Episode Severe PTSD Subjective Notes: Conditional Voluntary Interim History: Pt reports feeling more depressed than when he came in. He endorses suicidal ideation but denies any plan to harm himself here on the unit. He is awaiting clearance for ECT. Pt had UTI- sensitive for macrobid, pt allergic to levofloxacin and penicillins. Will start macrobid 50mg po BID x 7 days. Review of Systems Review of Systems Patient has no acute medical complaints at this time Yes all other systems are reviewed and are negative Diagnostics Vital Signs (24Hr): Vital Signs - 24 hr 04/26/22 18:00 04/27/22 08:45 Temperature 98.2 F 97.8 F Pulse Rate 75 78 Respiratory Rate 16 18 Blood Pressure 139/86 120/71 Pulse Oximetry 95 94 Oxygen Delivery Method Room Air Room Air BMI result Body Mass Index 27.3 Labs 04/22/22 09:15 Imaging Radiology Impressions: ITS Impressions Brain MRI 04/24/22 09:39 IMPRESSION: - No acute intracranial findings. No acute infarcts. - There is global cerebral volume loss and there is mild chronic microangiopathy. Medications Medications Current Medications Acetaminophen (Acetaminophen 325 Mg Tablet) 650 mg PO Q6H PRN PRN Reason: Headache/Pain Mild Scale (1-3) Last Admin: 04/26/22 06:02 Dose: 650 mg Al Hydroxide/Mg Hydroxide (Magnesium Hydrox/Alum Hydrox 30 Ml Oral.Susp) 30 ml PO Q6H PRN PRN Reason: Heartburn/Nausea Atorvastatin Calcium (Atorvastatin Calcium 20 Mg Tablet) 20 mg PO BEDTIME DIANNE Last Admin: 04/26/22 20:30 Dose: 20 mg Clozapine (Clozapine 100 Mg Tablet) 100 mg PO BEDTIME DIANNE Last Admin: 04/26/22 20:30 Dose: 100 mg Clozapine (Clozapine 25 Mg Tablet) 75 mg PO BEDTIME DIANNE Last Admin: 04/26/22 20:30 Dose: 75 mg Finasteride (Finasteride 5 Mg Tablet) 5 mg PO DAILY [facility] Last Admin: 04/27/22 09:28 Dose: 5 mg [place] Carbonate ([place] Carbonate Er 300 Mg Tablet.Er) 600 mg PO BEDTIME DIANNE Last Admin: 04/26/22 20:29 Dose: 600 mg Lorazepam (Lorazepam 0.5 Mg Tablet) 0.5 mg PO TID DIANNE Last Admin: 04/27/22 09:28 Dose: 0.5 mg Lorazepam (Lorazepam 1 Mg Tablet) 1 mg PO Q4H PRN PRN Reason: Anxiety Last Admin: 04/26/22 13:31 Dose: 1 mg Magnesium Hydroxide (Milk Of Magnesia 30 Ml Oral.Susp) 30 ml PO DAILY PRN PRN Reason: Constipation Melatonin (Melatonin 3 Mg Tablet) 6 mg PO BEDTIME [facility] Last Admin: 04/26/22 20:30 Dose: 6 mg Mirtazapine (Mirtazapine 30 Mg Tablet) 30 mg PO BEDTIME [facility] Last Admin: 04/26/22 20:29 Dose: 30 mg Nitrofurantoin Macrocrystals (Nitrofurantoin Monohyd/M-Cryst 100 Mg Capsule) 50 mg PO BID [facility] Stop: 05/03/22 21:01 Senna (Sennosides 8.6 Mg Tablet) 17.2 mg PO BEDTIME PRN PRN Reason: constipation Tamsulosin HCl (Tamsulosin Hcl 0.4 Mg Capsule) 0.4 mg PO DAILY [facility] Last Admin: 04/27/22 09:28 Dose: 0.4 mg Trazodone HCl (Trazodone Hcl 50 Mg Tablet) 50 mg PO BEDTIME MRX1 PRN PRN Reason: Insomnia Last Admin: 04/12/22 20:31 Dose: 50 mg Venlafaxine HCl (Venlafaxine Hcl Er 75 Mg Cap.Er.24h) 75 mg PO DAILY [facility] Last Admin: 04/27/22 09:28 Dose: 75 mg Allergies Allergies Allergy/AdvReac Type Severity Reaction Status Date / Time levofloxacin [From Levaquin] Allergy Rash Verified 04/24/22 18:49 Penicillins Allergy Rash Verified 04/11/22 00:44 Assessment & Plan Assessment & Plan (1) Major depressive disorder with psychotic features: Status: Acute Code(s): F32.3 - Major depressive disorder, single episode, severe with psychotic features Plan Patient is 72-year-old male with PMH significant for HTN, HLD, BPH and severe depression was seen for an admission history and physical to the [facility]. Patient denies any acute medical complaints. BPH Continue finasteride, tamsulosin HTN Pt previously on Losartan 50mg qd, last filled 11/07/21 Currently not anti-hypertensives Monitor BP, if remains elevated restart Losartan HLD Pt previously on atorvastatin 20mg q bedtime, last filled 05/30/21 Currently not on cholesterol medication Continue to hold atorvastatin, follow-up outpatient with PCP Thank you for allowing us to participate in the care of this patient. Signing off at this time. Please contact us if there are any acute complaints or concerns. Plan 1. Gather collateral information. 2. Continue [place] was prescribed. 3. We will discuss the possibilities of other antidepressants. 4. Increase Clozaril up to 125 mg po qhs on Apr 13. We will continue with the titration of Clozaril up to 200 mg daily. Clozaril is now up to 150 mg q.h.s. on April 15. And we will change up to Clozaril 1 wants 175 mg on April 17. 5. Effexor is increased to 112.5 mg on April 1604/17 continue tx. 04/18/21 quite depressed hopeless helpless si if not in hosp setting ? consider ect 04/19/22 Pt seen chart reviewed ativan prn helpful to dec anxiety irritability will try and coordinate with outpt psych ? hx tx response 04/20/22 Pt seen lorazepam tid consider ect 04/21/2022 Discussed option of potentially CT trying to get data from prior hospitalization on Effexor mirtazapine clozaril lithium 04/22/2022 Patient quite depressed anxious hopeless helpless thoughts at times he would be better off but denies plan or intent setting he is asking for help. He is asking about ECT his outpatient psychiatrist did not know his response to ECT previously patient had been generally stable until clozapine had been lowered from 100-50 present dose 175 which he seems to be tolerating Effexor had been increased to 150 mg 04/23/22 ck brain mri review records consider ect lower effexorseems more agitated ? vesta body 04/24/2022 Brain MRI was completed and shows some microvascular changes nothing remarkable EEG ordered and neuro consult. Unclear why patient has cogwheeling on clozapine unusual for lithium postvoid residual unremarkable Considering ECT however unclear if was helpful previously unclear technique patient denies active thoughts of self-harm in this setting 04/25: Continue current regimen and plans 04/26: Continue current regimen and plans 04/27 continue tx. pending ECT. Started on macrobid for UTI 50mg po BID x 7 days. Reason for contiued inpatient stay Substantial Risk for: harm to self and inability to function Time Spent With Patient Time: Total time managing care of this patient today ____ minutes.
[2022-04-27] MEDS: Nitrofurantoin Monohyd/M-Cryst 100 MG CAPSULE PO ×2 (13:04→21:02)
--- NOTE | 2022-04-27 16:01 | P.CNID_ITS ---
History of Present Illness Data of Consult Service Date: 04/27/22 Requesting physician: Gregory Womack Primary Care Provider: Nonstaff Physician HPI Reason for consult: bacteriuria He presents for care of major depression. He has had some general 2/10 back pain two days ago and dysuria one day ago. He has no fever or chills. He has allergy to penicillin and levaquin rash. He has no nephrolithiasis or symptoms of pyelonephritis such as flank pain and/or fever. He has small quantity 10-50,000 enterococcus. Review of Systems Review of Systems: Yes all other systems are reviewed and are negative [facility] Past Medical History Medical History (Updated 04/27/22 @ 16:04 by Shanna Gregorio MD) Anxiety Depression Glaucoma Hypercholesteremia Hypertension Laceration of abdomen Laceration of chest Laceration of wrist UTI (urinary tract infection) Family History Family history: reviewed and not pertinent Surgical History Surgical History History of laparotomy Social History Social History Household Members: Spouse Housing: House Are you a primary nurse care manager to a significant other at home: No Do you presently have visiting nurse or other home services: No Patient Tobacco Use Status: Former Tobacco user Quit Date: 03/2200 Tobacco use type: Cigarette and Cigar Smoked in Last 30 Days: No e-Cigarette/Vaping Use: Never Used Patient Interested in Nicotine Replacement: No Use of substances other than those prescribed or required for medical reasons: No Currently Displaying Signs/Symptoms of Drug Intoxication Withdrawal: No Any prior treatment program specific to substance use: No Advance Directives: No Advance Directives Information Provided: No Suicidal Behavior: History of suicide attemps Current/Past Psychiatric Disorders: Alcohol abuse, Chronic mental illess and Mood disorder Phan Symptoms: Impulsivity Family History: Attempts Change in Treatment: Change in provider Access to Firearms: No Do you have thoughts of harming others: None Do you have a plan to hurt others: No Plan Do you have the means to hurt others: Yes (pervasive thoughts of using kitchen knife to harm/kill and self) Recently lost weight without trying: No Nutrition Risks: No Nutritional Risk service: No Sexual orientation: Straight/Heterosexual Gender identity: Male Meds Allergies Allergy/AdvReac Type Severity Reaction Status Date / Time levofloxacin [From Levaquin] Allergy Rash Verified 04/24/22 18:49 Penicillins Allergy Rash Verified 04/11/22 00:44 Active Medications: Current Medications Acetaminophen (Acetaminophen 325 Mg Tablet) 650 mg PO Q6H PRN PRN Reason: Headache/Pain Mild Scale (1-3) Last Admin: 04/26/22 06:02 Dose: 650 mg Al Hydroxide/Mg Hydroxide (Magnesium Hydrox/Alum Hydrox 30 Ml Oral.Susp) 30 ml PO Q6H PRN PRN Reason: Heartburn/Nausea Atorvastatin Calcium (Atorvastatin Calcium 20 Mg Tablet) 20 mg PO BEDTIME DIANNE Last Admin: 04/26/22 20:30 Dose: 20 mg Clozapine (Clozapine 100 Mg Tablet) 100 mg PO BEDTIME DIANNE Last Admin: 04/26/22 20:30 Dose: 100 mg Clozapine (Clozapine 25 Mg Tablet) 75 mg PO BEDTIME DIANNE Last Admin: 04/26/22 20:30 Dose: 75 mg Finasteride (Finasteride 5 Mg Tablet) 5 mg PO DAILY DIANNE Last Admin: 04/27/22 09:28 Dose: 5 mg [place] Carbonate ([place] Carbonate Er 300 Mg Tablet.Er) 600 mg PO BEDTIME DIANNE Last Admin: 04/26/22 20:29 Dose: 600 mg Lorazepam (Lorazepam 0.5 Mg Tablet) 0.5 mg PO TID DIANNE Last Admin: 04/27/22 14:32 Dose: 0.5 mg Lorazepam (Lorazepam 1 Mg Tablet) 1 mg PO Q4H PRN PRN Reason: Anxiety Last Admin: 04/26/22 13:31 Dose: 1 mg Magnesium Hydroxide (Milk Of Magnesia 30 Ml Oral.Susp) 30 ml PO DAILY PRN PRN Reason: Constipation Melatonin (Melatonin 3 Mg Tablet) 6 mg PO BEDTIME DIANNE Last Admin: 04/26/22 20:30 Dose: 6 mg Mirtazapine (Mirtazapine 30 Mg Tablet) 30 mg PO BEDTIME DIANNE Last Admin: 04/26/22 20:29 Dose: 30 mg Nitrofurantoin Macrocrystals (Nitrofurantoin Monohyd/M-Cryst 100 Mg Capsule) 100 mg PO BID DIANNE Stop: 05/03/22 21:01 Last Admin: 04/27/22 13:04 Dose: 100 mg Senna (Sennosides 8.6 Mg Tablet) 17.2 mg PO BEDTIME PRN PRN Reason: constipation Tamsulosin HCl (Tamsulosin Hcl 0.4 Mg Capsule) 0.4 mg PO DAILY [facility] Last Admin: 04/27/22 09:28 Dose: 0.4 mg Trazodone HCl (Trazodone Hcl 50 Mg Tablet) 50 mg PO BEDTIME MRX1 PRN PRN Reason: Insomnia Last Admin: 04/12/22 20:31 Dose: 50 mg Venlafaxine HCl (Venlafaxine Hcl Er 75 Mg Cap.Er.24h) 75 mg PO DAILY [facility] Last Admin: 04/27/22 09:28 Dose: 75 mg Home Medications Medication Instructions Recorded Confirmed Last Taken Type clozapine 50 mg tablet 1 tab PO BEDTIME 04/11/22 04/11/22 04/10/22 History finasteride 5 mg tablet 1 tab PO DAILY 04/11/22 04/11/22 Unknown History lithium carbonate 300 mg 1 tab PO BEDTIME 04/11/22 04/11/22 04/10/22 History tablet,extended release mirtazapine 30 mg tablet 1 tab PO BEDTIME 04/11/22 04/11/22 Unknown History tamsulosin 0.4 mg capsule 1 cap PO DAILY 04/11/22 04/11/22 Unknown History venlafaxine 75 mg capsule,extended 1 cap PO QAM 04/11/22 04/11/22 Unknown History release 24 hr Physical Exam Vital Signs: Vital Signs: Last Vital Signs Temp 97.8 F 04/27/22 08:45 Pulse 78 04/27/22 08:45 Resp 18 04/27/22 08:45 BP 120/71 04/27/22 08:45 Pulse Ox 94 04/27/22 08:45 O2 Del Method 04/27/22 08:45 BMI result Body Mass Index 27.3 Const: General: cooperative HEENT: Head: Yes normal to inspection Face and sinus: Yes normal facial exam Mouth: Normal oral and palatal mucosa present Teeth and gingiva: dentition normal Eyes: General: appearance normal, both eyes and all related structures Pupils: Equal, round and reactive pupils present Resp: Effort & Inspection: normal respiratory effort Cardio: Rate: regular rate Rhythm: regular rhythm GI: Palpation (GI): Soft to palpation and nontender : General: Yes no CVA tenderness Back/Spine/Pelvis: Back: no CVA tenderness Skin: General skin exam: no rashes or lesions noted Neuro: General: moves all extremities Cranial nerves: Yes Equal, round and reactive pupils present Extrem: General: Yes normal to inspection Psych: Affect: Sad affect present Results Labs 04/22/22 09:15 Microbiology Microbiology Results: Microbiology 04/22/22 Unknown Urine clean catch - Urine wong top Urine Culture - Final Enterococcus faecalis Assessment and Plan (1) UTI (urinary tract infection): Status: Acute He has mild symptoms and some improvement in symptoms already. He has allergies to penicllin rash and sulfa rash. Plan Agree with po Macrobid 100 mg bid for 7-10 d Time Spent With Patient Time: Total time managing care of this patient today ____ minutes.
[2022-04-27 18:00] VITALS: BP 143/84; PULSE 81; RESP 18; TEMP 36.7; O2SAT 96
[2022-04-27] MEDS: Atorvastatin Calcium 20 MG TABLET PO (20:59)
[2022-04-27] MEDS: cloZAPine 100 MG TABLET PO (21:00)
[2022-04-27] MEDS: Melatonin 3 MG TABLET 6 MG PO (21:01)
[2022-04-27] MEDS: Mirtazapine 30 MG TABLET PO (21:01)
[2022-04-27] MEDS: Lithium Carbonate ER 300 MG TABLET.ER 600 MG PO (21:01)
[2022-04-27] MEDS: cloZAPine 25 MG TABLET 75 MG PO (21:01)
[2022-04-28 07:30] VITALS: BP 115/66; PULSE 80; RESP 16; TEMP 36.8; O2SAT 96
[2022-04-28] MEDS: Finasteride 5 MG TABLET PO (09:28)
[2022-04-28] MEDS: LORazepam 0.5 MG TABLET PO ×3 (09:28→20:56)
[2022-04-28] MEDS: Venlafaxine HCl ER 75 MG CAP.ER.24H PO (09:28)
[2022-04-28] MEDS: Nitrofurantoin Monohyd/M-Cryst 100 MG CAPSULE PO ×2 (09:28→20:56)
[2022-04-28] MEDS: Tamsulosin HCL 0.4 MG CAPSULE PO (09:28)
--- NOTE | 2022-04-28 12:16 | HO.PSYCHPN ---
Subjective Subjective Date of Service: 04/28/22 Reason For Visit: MDD Recurrent Episode Severe PTSD Subjective Notes: Conditional Voluntary Healthcare Proxy: Yes (Not invoked) Guardianship: No Interim History: Patient is now being treated for UTI had been attempting to get records from course of ECT at [facility] call placed to Psychiatry trying did determine if ECT treatment was unilateral or bilateral and there was any response. Patient states he can maintain his safety on the unit but has been experiencing more intrusive thoughts to harm himself in with something of a malevolent presence behind it. Patient states that he would not be safe if home. This appears to be separate from his worries about potential divorce Medication Compliance: Yes Attending Groups: Yes Mental Status Exam Mental Status Exam Patient Appearance: Well Grooomed Patient Orientation: Person, Place, Time and Situation Level of Consciousness: Awake and Appropriate Patient Behavior: Appropriate Behavior Comments: Tense looking in appearance pacing anxious Mood Description: Depressed, Anxious and Blunted Affect Description: Constricted, Depressed, Anxious and Apprehensive Patient Cognition Impaired: No Ability to Follow Directions: Good Speech Pattern: Clear and Appropriate Memory Description: Intact Delusions: Being Controlled (Some thoughts about an entity being intrusive and relates it to harming himself not a clear visual hallucination or auditory) Thought Process: Intact, Rumination and Goal Oriented Thought Content: positive for Go[place] Oriented, positive for Preoccupation, positive for Suicidal Ideation (pos if not in hosp setting ) and negative for Homicidal Ideation Depressive Symptoms: Increased Anxiety, Increased Irritability, Hopelessness, Increased Fatigue, Thoughts of /Suicide, Loss of Energy and Difficulty Concentrating Judgement: Good Judgement and Insight: Patient states he can come to staff if feeling unsafe denies direct command to harm himself but intermittent intrusive thoughts some which he associates with some type of super natural entity he states he can maintain safety in this setting Diagnostics Vital Signs (24Hr): Vital Signs - 24 hr 04/27/22 18:00 04/28/22 07:30 Temperature 98.1 F 98.2 F Pulse Rate 81 80 Respiratory Rate 18 16 Blood Pressure 143/84 H 115/66 Pulse Oximetry 96 96 Oxygen Delivery Method Room Air Room Air BMI result Body Mass Index 27.3 Labs 04/22/22 09:15 Imaging Radiology Impressions: ITS Impressions Brain MRI 04/24/22 09:39 IMPRESSION: - No acute intracranial findings. No acute infarcts. - There is global cerebral volume loss and there is mild chronic microangiopathy. Medications Medications Current Medications Acetaminophen (Acetaminophen 325 Mg Tablet) 650 mg PO Q6H PRN PRN Reason: Headache/Pain Mild Scale (1-3) Last Admin: 04/26/22 06:02 Dose: 650 mg Al Hydroxide/Mg Hydroxide (Magnesium Hydrox/Alum Hydrox 30 Ml Oral.Susp) 30 ml PO Q6H PRN PRN Reason: Heartburn/Nausea Atorvastatin Calcium (Atorvastatin Calcium 20 Mg Tablet) 20 mg PO BEDTIME DIANNE Last Admin: 04/27/22 20:59 Dose: 20 mg Clozapine (Clozapine 100 Mg Tablet) 100 mg PO BEDTIME DIANNE Last Admin: 04/27/22 21:00 Dose: 100 mg Clozapine (Clozapine 25 Mg Tablet) 75 mg PO BEDTIME DIANNE Last Admin: 04/27/22 21:01 Dose: 75 mg Finasteride (Finasteride 5 Mg Tablet) 5 mg PO DAILY [facility] Last Admin: 04/28/22 09:28 Dose: 5 mg [place] Carbonate ([place] Carbonate Er 300 Mg Tablet.Er) 600 mg PO BEDTIME DIANNE Last Admin: 04/27/22 21:01 Dose: 600 mg Lorazepam (Lorazepam 0.5 Mg Tablet) 0.5 mg PO TID DIANNE Last Admin: 04/28/22 09:28 Dose: 0.5 mg Lorazepam (Lorazepam 1 Mg Tablet) 1 mg PO Q4H PRN PRN Reason: Anxiety Last Admin: 04/26/22 13:31 Dose: 1 mg Magnesium Hydroxide (Milk Of Magnesia 30 Ml Oral.Susp) 30 ml PO DAILY PRN PRN Reason: Constipation Melatonin (Melatonin 3 Mg Tablet) 6 mg PO BEDTIME DIANNE Last Admin: 04/27/22 21:01 Dose: 6 mg Mirtazapine (Mirtazapine 30 Mg Tablet) 30 mg PO BEDTIME DIANNE Last Admin: 04/27/22 21:01 Dose: 30 mg Nitrofurantoin Macrocrystals (Nitrofurantoin Monohyd/M-Cryst 100 Mg Capsule) 100 mg PO BID DIANNE Stop: 05/03/22 21:01 Last Admin: 04/28/22 09:28 Dose: 100 mg Senna (Sennosides 8.6 Mg Tablet) 17.2 mg PO BEDTIME PRN PRN Reason: constipation Tamsulosin HCl (Tamsulosin Hcl 0.4 Mg Capsule) 0.4 mg PO DAILY [facility] Last Admin: 04/28/22 09:28 Dose: 0.4 mg Trazodone HCl (Trazodone Hcl 50 Mg Tablet) 50 mg PO BEDTIME MRX1 PRN PRN Reason: Insomnia Last Admin: 04/12/22 20:31 Dose: 50 mg Venlafaxine HCl (Venlafaxine Hcl Er 75 Mg Cap.Er.24h) 75 mg PO DAILY [facility] Last Admin: 04/28/22 09:28 Dose: 75 mg Allergies Allergies Allergy/AdvReac Type Severity Reaction Status Date / Time levofloxacin [From Levaquin] Allergy Rash Verified 04/24/22 18:49 Penicillins Allergy Rash Verified 04/11/22 00:44 Assessment & Plan Assessment & Plan (1) Major depressive disorder with psychotic features: Status: Acute Code(s): F32.3 - Major depressive disorder, single episode, severe with psychotic features Plan Agree with po Macrobid 100 mg bid for 7-10 d plan for UTI 04/28/2022 States he can maintain safety in this setting as then p.r.n. 1 feeling recently anxious or agitated. He is asking about ECT and whether perhaps a different technique could be used and calls placed more hospital records have been asked for. Normal ECT would certainly be a treatment of choice given patient's risk to him self and psychotic depression but unclear if this was helpful previously. Increase clozapine to 200 mg check level continue lithium both clozapine and lithium have been shown to decrease the level of suicidal and impulsive risk. Taper Effexor seem worse at 150 mg Trintellix 5 mg started consider Seroquel or olanzapine p.r.n will review case with . Patient educated on: diagnosis, medication risk/benefits, ECT and therapeutic strategies Informed Consent: understands Reason for contiued inpatient stay Substantial Risk for: harm to self and harm to others Time Spent With Patient Time: Total time managing care of this patient today 40___ minutes.
[2022-04-28 18:00] VITALS: BP 132/92; PULSE 88; RESP 18; TEMP 36.6; O2SAT 96
[2022-04-28] MEDS: Melatonin 3 MG TABLET 6 MG PO (20:55)
[2022-04-28] MEDS: Mirtazapine 30 MG TABLET PO (20:55)
[2022-04-28] MEDS: Atorvastatin Calcium 20 MG TABLET PO (20:55)
[2022-04-28] MEDS: Lithium Carbonate ER 300 MG TABLET.ER 600 MG PO (20:56)
[2022-04-28] MEDS: cloZAPine 100 MG TABLET 200 MG PO (20:56)
[2022-04-29 06:00] VITALS: BP 109/58; PULSE 83; RESP 18; TEMP 36.7; O2SAT 95
[2022-04-29] MEDS: LORazepam 0.5 MG TABLET PO ×3 (09:42→20:14)
[2022-04-29] MEDS: Finasteride 5 MG TABLET PO (09:42)
[2022-04-29] MEDS: Nitrofurantoin Monohyd/M-Cryst 100 MG CAPSULE PO ×2 (09:42→20:15)
[2022-04-29] MEDS: Vortioxetine Hydrobromide 5 MG TABLET PO (09:42)
[2022-04-29] MEDS: Venlafaxine HCl ER 37.5 MG CAP.ER.24H PO (09:43)
[2022-04-29] MEDS: Tamsulosin HCL 0.4 MG CAPSULE PO (09:44)
--- NOTE | 2022-04-29 12:11 | HO.PSYCHPN ---
Subjective Subjective Date of Service: 04/29/22 Reason For Visit: MDD Recurrent Episode Severe PTSD Subjective Notes: Conditional Voluntary Interim History: The nursing staff reported the patient slept well last night, he continues antibiotics due to bilateral flank pain that was diagnosed L a UTI. The staff noticed that he skilled his depression for over 10 minutes he looks brighter. The occupational therapist reported that she goes to groups. The social insurance specialist reported that we will have a family meeting tomorrow. Apparently in the past he cut himself and try to [place] himself and he was on the side against his . At this moment his is to scared to take him back home and we will exploring the possibility of going to [facility] respite. On interview the patient reports some depression, he recently had been cross taper from Effexor to Trintellix. We discussed the possiblitiy of ECT. Mental Status Exam Mental Status Exam Patient Appearance: Well Grooomed and Appropriate Patient Orientation: Person and Situation Level of Consciousness: Awake and Appropriate Patient Behavior: Guarded and Passive Mood Description: Withdrawn Affect Description: Constricted Patient Cognition Impaired: Yes Ability to Follow Directions: Good Speech Pattern: Clear Hallucinations: None Delusions: Not Present Thought Process: Distracted and Evasive Thought Content: positive for [place], positive for Circumstantial and positive for Poverty of Content Judgement: Fair Diagnostics Vital Signs (24Hr): Vital Signs - 24 hr 04/28/22 18:00 04/29/22 06:00 Temperature 97.9 F 98.1 F Pulse Rate 88 83 Respiratory Rate 18 18 Blood Pressure 132/92 H 109/58 L Pulse Oximetry 96 95 Oxygen Delivery Method Room Air Room Air BMI result Body Mass Index 27.3 Labs 04/22/22 09:15 Imaging Radiology Impressions: ITS Impressions Brain MRI 04/24/22 09:39 IMPRESSION: - No acute intracranial findings. No acute infarcts. - There is global cerebral volume loss and there is mild chronic microangiopathy. Medications Medications Current Medications Acetaminophen (Acetaminophen 325 Mg Tablet) 650 mg PO Q6H PRN PRN Reason: Headache/Pain Mild Scale (1-3) Last Admin: 04/26/22 06:02 Dose: 650 mg Al Hydroxide/Mg Hydroxide (Magnesium Hydrox/Alum Hydrox 30 Ml Oral.Susp) 30 ml PO Q6H PRN PRN Reason: Heartburn/Nausea Atorvastatin Calcium (Atorvastatin Calcium 20 Mg Tablet) 20 mg PO BEDTIME [facility] Last Admin: 04/28/22 20:55 Dose: 20 mg Clozapine (Clozapine 100 Mg Tablet) 200 mg PO BEDTIME [facility] Last Admin: 04/28/22 20:56 Dose: 200 mg Finasteride (Finasteride 5 Mg Tablet) 5 mg PO DAILY [facility] Last Admin: 04/29/22 09:42 Dose: 5 mg [place] Carbonate ([place] Carbonate Er 300 Mg Tablet.Er) 600 mg PO BEDTIME [facility] Last Admin: 04/28/22 20:56 Dose: 600 mg Lorazepam (Lorazepam 0.5 Mg Tablet) 0.5 mg PO TID [facility] Last Admin: 04/29/22 09:42 Dose: 0.5 mg Lorazepam (Lorazepam 1 Mg Tablet) 1 mg PO Q4H PRN PRN Reason: Anxiety Last Admin: 04/26/22 13:31 Dose: 1 mg Magnesium Hydroxide (Milk Of Magnesia 30 Ml Oral.Susp) 30 ml PO DAILY PRN PRN Reason: Constipation Melatonin (Melatonin 3 Mg Tablet) 6 mg PO BEDTIME [facility] Last Admin: 04/28/22 20:55 Dose: 6 mg Mirtazapine (Mirtazapine 30 Mg Tablet) 30 mg PO BEDTIME [facility] Last Admin: 04/28/22 20:55 Dose: 30 mg Nitrofurantoin Macrocrystals (Nitrofurantoin Monohyd/M-Cryst 100 Mg Capsule) 100 mg PO BID [facility] Stop: 05/03/22 21:01 Last Admin: 04/29/22 09:42 Dose: 100 mg Senna (Sennosides 8.6 Mg Tablet) 17.2 mg PO BEDTIME PRN PRN Reason: constipation Tamsulosin HCl (Tamsulosin Hcl 0.4 Mg Capsule) 0.4 mg PO DAILY [facility] Last Admin: 04/29/22 09:44 Dose: 0.4 mg Trazodone HCl (Trazodone Hcl 50 Mg Tablet) 50 mg PO BEDTIME MRX1 PRN PRN Reason: Insomnia Last Admin: 04/12/22 20:31 Dose: 50 mg Venlafaxine HCl (Venlafaxine Hcl Er 37.5 Mg Cap.Er.24h) 37.5 mg PO DAILY [facility] Last Admin: 04/29/22 09:43 Dose: 37.5 mg Vortioxetine (Vortioxetine Hydrobromide 5 Mg Tablet) 5 mg PO DAILY [facility] Last Admin: 04/29/22 09:42 Dose: 5 mg Allergies Allergies Allergy/AdvReac Type Severity Reaction Status Date / Time levofloxacin [From Levaquin] Allergy Rash Verified 04/24/22 18:49 Penicillins Allergy Rash Verified 04/11/22 00:44 Assessment & Plan Assessment & Plan (1) Major depressive disorder with psychotic features: Status: Acute Code(s): F32.3 - Major depressive disorder, single episode, severe with psychotic features Plan Agree with po Macrobid 100 mg bid for 7-10 d plan for UTI 04/28/2022 States he can maintain safety in this setting as then p.r.n. 1 feeling recently anxious or agitated. He is asking about ECT and whether perhaps a different technique could be used and calls placed more hospital records have been asked for. Normal ECT would certainly be a treatment of choice given patient's risk to him self and psychotic depression but unclear if this was helpful previously. Increase clozapine to 200 mg check level continue lithium both clozapine and lithium have been shown to decrease the level of suicidal and impulsive risk. Taper Effexor seem worse at 150 mg Trintellix 5 mg started consider Seroquel or olanzapine p.r.n will review case with . Plan 1. Continue cross taper of Effexor to [place]lar. 2. Continue with Clozaril and LIthium. 3. F/U CBC. 4. Family meeting tomorrow. 5. Consider ECT. Reason for contiued inpatient stay Substantial Risk for: inability to function, rapid decompensation and med/psych decompensation Time Spent With Patient Time: Total time managing care of this patient today __20__ minutes.
[2022-04-29] MEDS: LORazepam 1 MG TABLET PO (13:25)
[2022-04-29 18:00] VITALS: BP 145/88; PULSE 75; RESP 18; TEMP 36.6; O2SAT 94
[2022-04-29] MEDS: Lithium Carbonate ER 300 MG TABLET.ER 600 MG PO (20:14)
[2022-04-29] MEDS: Atorvastatin Calcium 20 MG TABLET PO (20:14)
[2022-04-29] MEDS: Melatonin 3 MG TABLET 6 MG PO (20:14)
[2022-04-29] MEDS: Mirtazapine 30 MG TABLET PO (20:14)
[2022-04-29] MEDS: cloZAPine 100 MG TABLET 200 MG PO (20:15)
[2022-04-30 07:00] VITALS: BMI 28.0
[2022-04-30 08:00] VITALS: BP 127/77; PULSE 93; RESP 16; TEMP 36.6; O2SAT 96
[2022-04-30] MEDS: Venlafaxine HCl ER 37.5 MG CAP.ER.24H PO (08:24)
[2022-04-30] MEDS: Finasteride 5 MG TABLET PO (08:24)
[2022-04-30] MEDS: Nitrofurantoin Monohyd/M-Cryst 100 MG CAPSULE PO ×2 (08:25→20:23)
[2022-04-30] MEDS: LORazepam 0.5 MG TABLET PO ×3 (08:25→20:23)
[2022-04-30] MEDS: Vortioxetine Hydrobromide 5 MG TABLET PO (08:25)
[2022-04-30] MEDS: Tamsulosin HCL 0.4 MG CAPSULE PO (08:25)
[2022-04-30 09:07] LABS: Estimated Average Glucose 105 mg/dL; Hemoglobin A1c % 5.3 %
[2022-04-30] MEDS: LORazepam 1 MG TABLET PO (12:19)
--- NOTE | 2022-04-30 12:48 | P.PNPSI_ITS ---
Subjective Subjective Date of Service: 04/30/22 Reason For Visit: MDD Recurrent Episode Severe PTSD Subjective Notes: Conditional Voluntary Interim History: The nursing staff reported the patient slept well he reported improvement of his flank pain with antibiotics, diagnosed of UTI. He remains dysphoric but hopeful. Today we will have a family meeting at 03:00 o'clock with his family. His is scared of him. We had the family meeting and the family was frustrated with prior treatments, it was evident strong family hx of dysphoria and psychosis. On interview the patient denies new symptoms, we discussed at length the possibility of ECT but so far will continue with the cross taper from Effexor to Trintellix. Mental Status Exam Mental Status Exam Patient Appearance: Appropriate Patient Orientation: Person and Situation Level of Consciousness: Awake Patient Behavior: Guarded and Passive Mood Description: Withdrawn Affect Description: Constricted and Depressed Patient Cognition Impaired: Yes Ability to Follow Directions: Good Speech Pattern: Clear Hallucinations: None Delusions: Not Present Thought Process: Distracted Thought Content: positive for [place] and positive for Circumstantial Judgement: Fair Diagnostics Vital Signs (24Hr): Vital Signs - 24 hr 04/29/22 18:00 04/30/22 08:00 Temperature 97.8 F 97.9 F Pulse Rate 75 93 Respiratory Rate 18 16 Blood Pressure 145/88 H 127/77 Pulse Oximetry 94 96 Oxygen Delivery Method Room Air Room Air BMI result Body Mass Index 27.3 Labs 04/22/22 09:15 Labs: Laboratory Results - last 48 hr 04/30/22 07:45 Estimat Average Glucose 105 Hemoglobin A1c % 5.3 Imaging Radiology Impressions: ITS Impressions Brain MRI 04/24/22 09:39 IMPRESSION: - No acute intracranial findings. No acute infarcts. - There is global cerebral volume loss and there is mild chronic microangiopathy. Medications Medications Current Medications Acetaminophen (Acetaminophen 325 Mg Tablet) 650 mg PO Q6H PRN PRN Reason: Headache/Pain Mild Scale (1-3) Last Admin: 04/26/22 06:02 Dose: 650 mg Al Hydroxide/Mg Hydroxide (Magnesium Hydrox/Alum Hydrox 30 Ml Oral.Susp) 30 ml PO Q6H PRN PRN Reason: Heartburn/Nausea Atorvastatin Calcium (Atorvastatin Calcium 20 Mg Tablet) 20 mg PO BEDTIME DIANNE Last Admin: 04/29/22 20:14 Dose: 20 mg Clozapine (Clozapine 100 Mg Tablet) 200 mg PO BEDTIME [facility] Last Admin: 04/29/22 20:15 Dose: 200 mg Finasteride (Finasteride 5 Mg Tablet) 5 mg PO DAILY [facility] Last Admin: 04/30/22 08:24 Dose: 5 mg [place] Carbonate ([place] Carbonate Er 300 Mg Tablet.Er) 600 mg PO BEDTIME [facility] Last Admin: 04/29/22 20:14 Dose: 600 mg Lorazepam (Lorazepam 0.5 Mg Tablet) 0.5 mg PO TID [facility] Last Admin: 04/30/22 08:25 Dose: 0.5 mg Lorazepam (Lorazepam 1 Mg Tablet) 1 mg PO Q4H PRN PRN Reason: Anxiety Last Admin: 04/30/22 12:19 Dose: 1 mg Magnesium Hydroxide (Milk Of Magnesia 30 Ml Oral.Susp) 30 ml PO DAILY PRN PRN Reason: Constipation Melatonin (Melatonin 3 Mg Tablet) 6 mg PO BEDTIME [facility] Last Admin: 04/29/22 20:14 Dose: 6 mg Mirtazapine (Mirtazapine 30 Mg Tablet) 30 mg PO BEDTIME [facility] Last Admin: 04/29/22 20:14 Dose: 30 mg Nitrofurantoin Macrocrystals (Nitrofurantoin Monohyd/M-Cryst 100 Mg Capsule) 100 mg PO BID [facility] Stop: 05/03/22 21:01 Last Admin: 04/30/22 08:25 Dose: 100 mg Senna (Sennosides 8.6 Mg Tablet) 17.2 mg PO BEDTIME PRN PRN Reason: constipation Tamsulosin HCl (Tamsulosin Hcl 0.4 Mg Capsule) 0.4 mg PO DAILY [facility] Last Admin: 04/30/22 08:25 Dose: 0.4 mg Trazodone HCl (Trazodone Hcl 50 Mg Tablet) 50 mg PO BEDTIME MRX1 PRN PRN Reason: Insomnia Last Admin: 04/12/22 20:31 Dose: 50 mg Venlafaxine HCl (Venlafaxine Hcl Er 37.5 Mg Cap.Er.24h) 37.5 mg PO DAILY [facility] Last Admin: 04/30/22 08:24 Dose: 37.5 mg Vortioxetine (Vortioxetine Hydrobromide 5 Mg Tablet) 5 mg PO DAILY [facility] Last Admin: 04/30/22 08:25 Dose: 5 mg Allergies Allergies Allergy/AdvReac Type Severity Reaction Status Date / Time levofloxacin [From Levaquin] Allergy Rash Verified 04/24/22 18:49 Penicillins Allergy Rash Verified 04/11/22 00:44 Assessment & Plan Assessment & Plan (1) Major depressive disorder with psychotic features: Status: Acute Code(s): F32.3 - Major depressive disorder, single episode, severe with psychotic features Plan Agree with po Macrobid 100 mg bid for 7-10 d plan for UTI 04/28/2022 States he can maintain safety in this setting as then p.r.n. 1 feeling recently anxious or agitated. He is asking about ECT and whether perhaps a different reyna hnique could be used and calls placed more hospital records have been asked for. Normal ECT would certainly be a treatment of choice given patient's risk to him self and psychotic depression but unclear if this was helpful previously. Increase clozapine to 200 mg check level continue lithium both clozapine and lithium have been shown to decrease the level of suicidal and impulsive risk. Taper Effexor seem worse at 150 mg Trintellix 5 mg started consider Seroquel or olanzapine p.r.n will review case with . Plan 1. Continue cross taper of Effexor to Trintellix. Last dose of Effexor tomorrow. 2. Continue with Clozaril and LIthium. 3. F/U CBC. 4. Family meeting tomorrow. 5. Consider ECT. 6. [place] level, basic metabolic panel, TSH for tomorrow morning Reason for contiued inpatient stay Substantial Risk for: inability to function, rapid decompensation and med/psych decompensation Time Spent With Patient Time: Total time managing care of this patient today __20__ minutes.
[2022-04-30 19:35] VITALS: BP 140/76; PULSE 79; RESP 16; TEMP 36.3; O2SAT 94
[2022-04-30] MEDS: Lithium Carbonate ER 300 MG TABLET.ER 600 MG PO (20:21)
[2022-04-30] MEDS: Mirtazapine 30 MG TABLET PO (20:21)
[2022-04-30] MEDS: Atorvastatin Calcium 20 MG TABLET PO (20:21)
[2022-04-30] MEDS: Melatonin 3 MG TABLET 6 MG PO (20:22)
[2022-04-30] MEDS: cloZAPine 100 MG TABLET 200 MG PO (20:23)
[2022-05-01 07:29] LABS: Lithium 0.88 mmol/L (0.60-1.20)
[2022-05-01 07:43] LABS: Anion Gap 8 (12-20); Blood Urea Nitrogen 15 mg/dL (9-16); Calcium 8.8 mg/dL (8.4-10.2); Carbon Dioxide 27 mmol/L (22-29); Chloride 110 mmol/L (96-108); Creatinine Clr Calc Pharmacy 69.2; Estimated Glomerular Filt Rate > 60; Glucose Random 105 mg/dL (60-115); Potassium 4.4 mmol/L (3.3-5.1); Sodium 141 mmol/L (135-145)
[2022-05-01 08:00] LABS: Thyroid Stimulating Hormone 3.76 uIU/mL (0.32-4.0)
[2022-05-01 09:50] VITALS: BP 132/83; PULSE 82; RESP 18; TEMP 36.4; O2SAT 95
[2022-05-01] MEDS: Finasteride 5 MG TABLET PO (09:52)
[2022-05-01] MEDS: Nitrofurantoin Monohyd/M-Cryst 100 MG CAPSULE PO ×2 (09:52→20:31)
[2022-05-01] MEDS: Tamsulosin HCL 0.4 MG CAPSULE PO (09:52)
[2022-05-01] MEDS: Venlafaxine HCl ER 37.5 MG CAP.ER.24H PO (09:52)
[2022-05-01] MEDS: LORazepam 0.5 MG TABLET PO ×3 (09:52→20:31)
[2022-05-01] MEDS: Vortioxetine Hydrobromide 5 MG TABLET PO (09:52)
--- NOTE | 2022-05-01 15:42 | HO.PSYCHPN ---
Subjective Subjective Date of Service: 05/01/22 Reason For Visit: MDD Recurrent Episode Severe PTSD Subjective Notes: Conditional Voluntary Interim History: The nursing staff reported the patient had been complaining of depression. Yesterday, he was very sad when his reported that he wanted to get divorce because she cannot hold with all his psychiatric problems today On interview the patient reports depression but psychosis has improved. We will D/C effexor and increase Trintellix Mental Status Exam Mental Status Exam Patient Appearance: Well Grooomed Patient Orientation: Person and Situation Level of Consciousness: Awake and Appropriate Patient Behavior: Guarded and Passive Mood Description: Withdrawn Affect Description: Constricted Patient Cognition Impaired: Yes Ability to Follow Directions: Good Speech Pattern: Clear Hallucinations: None Delusions: Not Present Thought Process: Linear Thought Content: positive for [place] Judgement: Fair Diagnostics Vital Signs (24Hr): Vital Signs - 24 hr 04/30/22 19:35 05/01/22 09:50 Temperature 97.3 F 97.6 F Pulse Rate 79 82 Respiratory Rate 16 18 Blood Pressure 140/76 H 132/83 Pulse Oximetry 94 95 Oxygen Delivery Method Room Air Room Air BMI result Body Mass Index 28.0 Labs 05/01/22 07:07 Labs: Laboratory Results - last 48 hr 04/30/22 05/01/22 05/01/22 07:45 07:07 07:07 Sodium 141 Potassium 4.4 Chloride 110 H Carbon Dioxide 27 Anion Gap 8 L BUN 15 Creatinine 0.98 Estim Creat Clear Calc 69.2 Estimated GFR > 60 Random Glucose 105 Estimat Average Glucose 105 Hemoglobin A1c % 5.3 Calcium 8.8 TSH 3.76 [place] 0.88 Imaging Radiology Impressions: ITS Impressions Brain MRI 04/24/22 09:39 IMPRESSION: - No acute intracranial findings. No acute infarcts. - There is global cerebral volume loss and there is mild chronic microangiopathy. Medications Medications Current Medications Acetaminophen (Acetaminophen 325 Mg Tablet) 650 mg PO Q6H PRN PRN Reason: Headache/Pain Mild Scale (1-3) Last Admin: 04/26/22 06:02 Dose: 650 mg Al Hydroxide/Mg Hydroxide (Magnesium Hydrox/Alum Hydrox 30 Ml Oral.Susp) 30 ml PO Q6H PRN PRN Reason: Heartburn/Nausea Atorvastatin Calcium (Atorvastatin Calcium 20 Mg Tablet) 20 mg PO BEDTIME DIANNE Last Admin: 04/30/22 20:21 Dose: 20 mg Clozapine (Clozapine 100 Mg Tablet) 200 mg PO BEDTIME [facility] Last Admin: 04/30/22 20:23 Dose: 200 mg Finasteride (Finasteride 5 Mg Tablet) 5 mg PO DAILY [facility] Last Admin: 05/01/22 09:52 Dose: 5 mg [place] Carbonate ([place] Carbonate Er 300 Mg Tablet.Er) 600 mg PO BEDTIME [facility] Last Admin: 04/30/22 20:21 Dose: 600 mg Lorazepam (Lorazepam 0.5 Mg Tablet) 0.5 mg PO TID [facility] Last Admin: 05/01/22 13:56 Dose: 0.5 mg Lorazepam (Lorazepam 1 Mg Tablet) 1 mg PO Q4H PRN PRN Reason: Anxiety Last Admin: 04/30/22 12:19 Dose: 1 mg Magnesium Hydroxide (Milk Of Magnesia 30 Ml Oral.Susp) 30 ml PO DAILY PRN PRN Reason: Constipation Melatonin (Melatonin 3 Mg Tablet) 6 mg PO BEDTIME [facility] Last Admin: 04/30/22 20:22 Dose: 6 mg Mirtazapine (Mirtazapine 30 Mg Tablet) 30 mg PO BEDTIME [facility] Last Admin: 04/30/22 20:21 Dose: 30 mg Nitrofurantoin Macrocrystals (Nitrofurantoin Monohyd/M-Cryst 100 Mg Capsule) 100 mg PO BID [facility] Stop: 05/03/22 21:01 Last Admin: 05/01/22 09:52 Dose: 100 mg Senna (Sennosides 8.6 Mg Tablet) 17.2 mg PO BEDTIME PRN PRN Reason: constipation Tamsulosin HCl (Tamsulosin Hcl 0.4 Mg Capsule) 0.4 mg PO DAILY [facility] Last Admin: 05/01/22 09:52 Dose: 0.4 mg Trazodone HCl (Trazodone Hcl 50 Mg Tablet) 50 mg PO BEDTIME MRX1 PRN PRN Reason: Insomnia Last Admin: 04/12/22 20:31 Dose: 50 mg Venlafaxine HCl (Venlafaxine Hcl Er 37.5 Mg Cap.Er.24h) 37.5 mg PO DAILY [facility] Last Admin: 05/01/22 09:52 Dose: 37.5 mg Vortioxetine (Vortioxetine Hydrobromide 5 Mg Tablet) 5 mg PO DAILY [facility] Last Admin: 05/01/22 09:52 Dose: 5 mg Allergies Allergies Allergy/AdvReac Type Severity Reaction Status Date / Time levofloxacin [From Levaquin] Allergy Rash Verified 04/24/22 18:49 Penicillins Allergy Rash Verified 04/11/22 00:44 Assessment & Plan Assessment & Plan (1) Major depressive disorder with psychotic features: Status: Acute Code(s): F32.3 - Major depressive disorder, single episode, severe with psychotic features Plan Agree with po Macrobid 100 mg bid for 7-10 d plan for UTI 04/28/2022 States he can maintain safety in this setting as then p.r.n. 1 feeling recently anxious or agitated. He is asking about ECT and whether perhaps a different technique could be used and calls placed more hospital records have been asked for. Normal ECT would certainly be a treatment of choice given patient's risk to him self and psychotic depression but unclear if this was helpful previously. Increase clozapine to 200 mg check level continue lithium both clozapine and lithium have been shown to decrease the level of suicidal and impulsive risk. Taper Effexor seem worse at 150 mg Trintellix 5 mg started consider Seroquel or olanzapine p.r.n will review case with . Plan 1. Continue cross taper of Effexor to Trintellix. Last dose of Effexor today, Trintellix increased to 10 mg tomorrow. 2. Continue with Clozaril and LIthium. 3. F/U CBC. 4. Family meeting tomorrow. 5. Consider ECT. 6. [place] level, basic metabolic panel, TSH for tomorrow morning. Blood work came back normal Reason for contiued inpatient stay Substantial Risk for: inability to function, rapid decompensation and med/psych decompensation Time Spent With Patient Time: Total time managing care of this patient today ___20_ minutes.
[2022-05-01 18:00] VITALS: BP 169/60; PULSE 82; RESP 18; TEMP 36.1; O2SAT 96
[2022-05-01] MEDS: cloZAPine 100 MG TABLET 200 MG PO (20:30)
[2022-05-01] MEDS: Atorvastatin Calcium 20 MG TABLET PO (20:30)
[2022-05-01] MEDS: Melatonin 3 MG TABLET 6 MG PO (20:31)
[2022-05-01] MEDS: Mirtazapine 30 MG TABLET PO (20:31)
[2022-05-01] MEDS: Lithium Carbonate ER 300 MG TABLET.ER 600 MG PO (20:31)
[2022-05-02 06:32] LABS: Neut%MD 47.7 %; Neutrophils Absolute Auto 2.8 x10*3/uL (2.0-8.3); WBCANC 5.9 X10*3/uL
[2022-05-02 08:40] VITALS: BP 120/56; PULSE 83; RESP 16; TEMP 36.4; O2SAT 98
[2022-05-02] MEDS: Finasteride 5 MG TABLET PO (08:43)
[2022-05-02] MEDS: Tamsulosin HCL 0.4 MG CAPSULE PO (08:44)
[2022-05-02] MEDS: Vortioxetine Hydrobromide 10 MG TABLET PO (08:44)
[2022-05-02] MEDS: LORazepam 0.5 MG TABLET PO ×3 (08:44→20:26)
[2022-05-02] MEDS: Nitrofurantoin Monohyd/M-Cryst 100 MG CAPSULE PO ×2 (08:44→20:27)
--- NOTE | 2022-05-02 09:58 | P.PNPSI_ITS ---
Subjective Subjective Date of Service: 05/02/22 Reason For Visit: MDD Recurrent Episode Severe PTSD Subjective Notes: Conditional Voluntary Interim History: The nursing staff reported the patient has been pleasant, cooperative and quiet, he has watch TV last night and he 80% of his dinner. He reports depression 9. On interview we discussed the medication changes and he agreed to increase Trintellix to 10 mg p.o. daily. Mental Status Exam Mental Status Exam Patient Appearance: Well Grooomed and Appropriate Patient Orientation: Person and Situation Level of Consciousness: Awake Patient Behavior: Cooperative Mood Description: Calm Affect Description: Constricted Patient Cognition Impaired: Yes Ability to Follow Directions: Good Speech Pattern: Clear Hallucinations: None Delusions: Not Present Thought Process: Distracted and Evasive Thought Content: positive for [place] Judgement: Fair Diagnostics Vital Signs (24Hr): Vital Signs - 24 hr 05/01/22 18:00 Temperature 97 F Pulse Rate 82 Respiratory Rate 18 Blood Pressure 169/60 H Pulse Oximetry 96 Oxygen Delivery Method Room Air BMI result Body Mass Index 28.0 Labs 05/01/22 07:07 Labs: Laboratory Results - last 48 hr 05/01/22 05/01/22 05/02/22 07:07 07:07 06:07 Absolute Neuts (auto) 2.8 Sodium 141 Potassium 4.4 Chloride 110 H Carbon Dioxide 27 Anion Gap 8 L BUN 15 Creatinine 0.98 Estim Creat Clear Calc 69.2 Estimated GFR > 60 Random Glucose 105 Calcium 8.8 TSH 3.76 [place] 0.88 Imaging Radiology Impressions: ITS Impressions Brain MRI 04/24/22 09:39 IMPRESSION: - No acute intracranial findings. No acute infarcts. - There is global cerebral volume loss and there is mild chronic microangiopathy. Medications Medications Current Medications Acetaminophen (Acetaminophen 325 Mg Tablet) 650 mg PO Q6H PRN PRN Reason: Headache/Pain Mild Scale (1-3) Last Admin: 04/26/22 06:02 Dose: 650 mg Al Hydroxide/Mg Hydroxide (Magnesium Hydrox/Alum Hydrox 30 Ml Oral.Susp) 30 ml PO Q6H PRN PRN Reason: Heartburn/Nausea Atorvastatin Calcium (Atorvastatin Calcium 20 Mg Tablet) 20 mg PO BEDTIME [facility] Last Admin: 05/01/22 20:30 Dose: 20 mg Clozapine (Clozapine 100 Mg Tablet) 200 mg PO BEDTIME [facility] Last Admin: 05/01/22 20:30 Dose: 200 mg Finasteride (Finasteride 5 Mg Tablet) 5 mg PO DAILY [facility] Last Admin: 05/02/22 08:43 Dose: 5 mg [place] Carbonate ([place] Carbonate Er 300 Mg Tablet.Er) 600 mg PO BEDTIME [facility] Last Admin: 05/01/22 20:31 Dose: 600 mg Lorazepam (Lorazepam 0.5 Mg Tablet) 0.5 mg PO TID [facility] Last Admin: 05/02/22 08:44 Dose: 0.5 mg Lorazepam (Lorazepam 1 Mg Tablet) 1 mg PO Q4H PRN PRN Reason: Anxiety Last Admin: 04/30/22 12:19 Dose: 1 mg Magnesium Hydroxide (Milk Of Magnesia 30 Ml Oral.Susp) 30 ml PO DAILY PRN PRN Reason: Constipation Melatonin (Melatonin 3 Mg Tablet) 6 mg PO BEDTIME [facility] Last Admin: 05/01/22 20:31 Dose: 6 mg Mirtazapine (Mirtazapine 30 Mg Tablet) 30 mg PO BEDTIME [facility] Last Admin: 05/01/22 20:31 Dose: 30 mg Nitrofurantoin Macrocrystals (Nitrofurantoin Monohyd/M-Cryst 100 Mg Capsule) 100 mg PO BID [facility] Stop: 05/03/22 21:01 Last Admin: 05/02/22 08:44 Dose: 100 mg Senna (Sennosides 8.6 Mg Tablet) 17.2 mg PO BEDTIME PRN PRN Reason: constipation Tamsulosin HCl (Tamsulosin Hcl 0.4 Mg Capsule) 0.4 mg PO DAILY [facility] Last Admin: 05/02/22 08:44 Dose: 0.4 mg Trazodone HCl (Trazodone Hcl 50 Mg Tablet) 50 mg PO BEDTIME MRX1 PRN PRN Reason: Insomnia Last Admin: 04/12/22 20:31 Dose: 50 mg Vortioxetine (Vortioxetine Hydrobromide 10 Mg Tablet) 10 mg PO DAILY [facility] Last Admin: 05/02/22 08:44 Dose: 10 mg Allergies Allergies Allergy/AdvReac Type Severity Reaction Status Date / Time levofloxacin [From Levaquin] Allergy Rash Verified 04/24/22 18:49 Penicillins Allergy Rash Verified 04/11/22 00:44 Assessment & Plan Assessment & Plan (1) Major depressive disorder with psychotic features: Status: Acute Code(s): F32.3 - Major depressive disorder, single episode, severe with psychotic features Plan Agree with po Macrobid 100 mg bid for 7-10 d plan for UTI 04/28/2022 States he can maintain safety in this setting as then p.r.n. 1 feeling recently anxious or agitated. He is asking about ECT and whether perhaps a different technique could be used and calls placed more hospital records have been asked for. Normal ECT would certainly be a treatment of choice given patient's risk to him self and psychotic depression but unclear if this was helpful previously. Increase clozapine to 200 mg check level continue lithium both clozapine and lithium have been shown to decrease the level of suicidal and impulsive risk. Taper Effexor seem worse at 150 mg Trintellix 5 mg started consider Seroquel or olanzapine p.r.n will review case with . Plan 1. Continue cross taper of Effexor to Trintellix. Last dose of Effexor today, Trintellix increased to 10 mg tomorrow. 2. Continue with Clozaril and LIthium. 3. F/U CBC. 4. Family meeting tomorrow. 5. Consider ECT. 6. [place] level, basic metabolic panel, TSH for tomorrow morning. Blood work came back normal Reason for contiued inpatient stay Substantial Risk for: inability to function, rapid decompensation and med/psych decompensation Time Spent With Patient Time: Total time managing care of this patient today _20___ minutes.
[2022-05-02] MEDS: LORazepam 1 MG TABLET PO (12:14)
[2022-05-02 18:45] VITALS: BP 160/86; PULSE 81; RESP 16; TEMP 36.3; O2SAT 96
[2022-05-02] MEDS: Atorvastatin Calcium 20 MG TABLET PO (20:26)
[2022-05-02] MEDS: Melatonin 3 MG TABLET 6 MG PO (20:26)
[2022-05-02] MEDS: Lithium Carbonate ER 300 MG TABLET.ER 600 MG PO (20:26)
[2022-05-02] MEDS: cloZAPine 100 MG TABLET 200 MG PO (20:26)
[2022-05-02] MEDS: Mirtazapine 30 MG TABLET PO (20:27)
[2022-05-03 08:12] VITALS: BP 146/84; PULSE 83; RESP 16; TEMP 36.3; O2SAT 96
[2022-05-03] MEDS: Finasteride 5 MG TABLET PO (08:14)
[2022-05-03] MEDS: Vortioxetine Hydrobromide 10 MG TABLET PO (08:15)
[2022-05-03] MEDS: Nitrofurantoin Monohyd/M-Cryst 100 MG CAPSULE PO ×2 (08:15→20:05)
[2022-05-03] MEDS: Tamsulosin HCL 0.4 MG CAPSULE PO (08:15)
[2022-05-03] MEDS: LORazepam 0.5 MG TABLET PO ×3 (08:15→20:04)
--- NOTE | 2022-05-03 12:03 | P.PNPSI_ITS ---
Subjective Subjective Date of Service: 05/03/22 Reason For Visit: MDD Recurrent Episode Severe PTSD Subjective Notes: Conditional Voluntary Interim History: The nursing staff reported the patient has been visible in the unit anxious and depressed he scored 8/10 in the morning. He slept 7 hours. On interview the patient is pleasant and cooperative he states that he is interested on ECT. Mental Status Exam Mental Status Exam Patient Appearance: Well Grooomed and Appropriate Patient Orientation: Person and Situation Level of Consciousness: Awake and Appropriate Patient Behavior: Guarded and Passive Mood Description: Withdrawn Affect Description: Constricted Patient Cognition Impaired: Yes Ability to Follow Directions: Good Speech Pattern: Clear Hallucinations: None Delusions: Not Present Thought Process: Distracted and Linear Thought Content: positive for [place] and positive for [place] Judgement: Fair Diagnostics Vital Signs (24Hr): Vital Signs - 24 hr 05/02/22 18:45 05/03/22 08:12 Temperature 97.4 F 97.3 F Pulse Rate 81 83 Respiratory Rate 16 16 Blood Pressure 160/86 H 146/84 H Pulse Oximetry 96 96 Oxygen Delivery Method Room Air Room Air BMI result Body Mass Index 28.0 Labs 05/01/22 07:07 Labs: Laboratory Results - last 48 hr 05/02/22 06:07 Absolute Neuts (auto) 2.8 Imaging Radiology Impressions: ITS Impressions Brain MRI 04/24/22 09:39 IMPRESSION: - No acute intracranial findings. No acute infarcts. - There is global cerebral volume loss and there is mild chronic microangiopathy. Medications Medications Current Medications Acetaminophen (Acetaminophen 325 Mg Tablet) 650 mg PO Q6H PRN PRN Reason: Headache/Pain Mild Scale (1-3) Last Admin: 04/26/22 06:02 Dose: 650 mg Al Hydroxide/Mg Hydroxide (Magnesium Hydrox/Alum Hydrox 30 Ml Oral.Susp) 30 ml PO Q6H PRN PRN Reason: Heartburn/Nausea Atorvastatin Calcium (Atorvastatin Calcium 20 Mg Tablet) 20 mg PO BEDTIME [facility] Last Admin: 05/02/22 20:26 Dose: 20 mg Clozapine (Clozapine 100 Mg Tablet) 200 mg PO BEDTIME [facility] Last Admin: 05/02/22 20:26 Dose: 200 mg Finasteride (Finasteride 5 Mg Tablet) 5 mg PO DAILY [facility] Last Admin: 05/03/22 08:14 Dose: 5 mg [place] Carbonate ([place] Carbonate Er 300 Mg Tablet.Er) 600 mg PO BEDTIME [facility] Last Admin: 05/02/22 20:26 Dose: 600 mg Lorazepam (Lorazepam 0.5 Mg Tablet) 0.5 mg PO TID [facility] Last Admin: 05/03/22 08:15 Dose: 0.5 mg Lorazepam (Lorazepam 1 Mg Tablet) 1 mg PO Q4H PRN PRN Reason: Anxiety Last Admin: 05/02/22 12:14 Dose: 1 mg Magnesium Hydroxide (Milk Of Magnesia 30 Ml Oral.Susp) 30 ml PO DAILY PRN PRN Reason: Constipation Melatonin (Melatonin 3 Mg Tablet) 6 mg PO BEDTIME [facility] Last Admin: 05/02/22 20:26 Dose: 6 mg Mirtazapine (Mirtazapine 30 Mg Tablet) 30 mg PO BEDTIME [facility] Last Admin: 05/02/22 20:27 Dose: 30 mg Nitrofurantoin Macrocrystals (Nitrofurantoin Monohyd/M-Cryst 100 Mg Capsule) 100 mg PO BID [facility] Stop: 05/03/22 21:01 Last Admin: 05/03/22 08:15 Dose: 100 mg Senna (Sennosides 8.6 Mg Tablet) 17.2 mg PO BEDTIME PRN PRN Reason: constipation Tamsulosin HCl (Tamsulosin Hcl 0.4 Mg Capsule) 0.4 mg PO DAILY [facility] Last Admin: 05/03/22 08:15 Dose: 0.4 mg Trazodone HCl (Trazodone Hcl 50 Mg Tablet) 50 mg PO BEDTIME MRX1 PRN PRN Reason: Insomnia Last Admin: 04/12/22 20:31 Dose: 50 mg Vortioxetine (Vortioxetine Hydrobromide 10 Mg Tablet) 10 mg PO DAILY [facility] Last Admin: 05/03/22 08:15 Dose: 10 mg Allergies Allergies Allergy/AdvReac Type Severity Reaction Status Date / Time levofloxacin [From Levaquin] Allergy Rash Verified 04/24/22 18:49 Penicillins Allergy Rash Verified 04/11/22 00:44 Assessment & Plan Assessment & Plan (1) Major depressive disorder with psychotic features: Status: Acute Code(s): F32.3 - Major depressive disorder, single episode, severe with psychotic features Plan Agree with po Macrobid 100 mg bid for 7-10 d plan for UTI 04/28/2022 States he can maintain safety in this setting as then p.r.n. 1 feeling recently anxious or agitated. He is asking about ECT and whether perhaps a different technique could be used and calls placed more hospital records have been asked for. Normal ECT would certainly be a treatment of choice given patient's risk to him self and psychotic depression but unclear if this was helpful previously. Increase clozapine to 200 mg check level continue lithium both clozapine and lithium have been shown to decrease the level of suicidal and impulsive risk. Taper Effexor seem worse at 150 mg Trintellix 5 mg started consider Seroquel or olanzapine p.r.n will review case with . Plan 1. Continue cross taper of Effexor to Trintellix. Last dose of Effexor today, Trintellix increased to 10 mg tomorrow. 2. Continue with Clozaril and LIthium. 3. F/U CBC. 4. Family meeting tomorrow. 5. Consider ECT. 6. [place] level, basic metabolic panel, TSH for tomorrow morning. Blood work came back normal Reason for contiued inpatient stay Substantial Risk for: inability to function, rapid decompensation and med/psych decompensation Time Spent With Patient Time: Total time managing care of this patient today _20___ minutes.
[2022-05-03] MEDS: LORazepam 1 MG TABLET PO (16:39)
[2022-05-03 18:53] VITALS: BP 163/84; PULSE 94; RESP 16; TEMP 36.8; O2SAT 98
[2022-05-03] MEDS: cloZAPine 100 MG TABLET 200 MG PO (20:04)
[2022-05-03] MEDS: Melatonin 3 MG TABLET 6 MG PO (20:04)
[2022-05-03] MEDS: Atorvastatin Calcium 20 MG TABLET PO (20:04)
[2022-05-03] MEDS: Lithium Carbonate ER 300 MG TABLET.ER 600 MG PO (20:05)
[2022-05-03] MEDS: Mirtazapine 30 MG TABLET PO (20:05)
[2022-05-04] MEDS: Finasteride 5 MG TABLET PO (07:57)
[2022-05-04] MEDS: LORazepam 0.5 MG TABLET PO ×3 (07:58→20:36)
[2022-05-04] MEDS: Vortioxetine Hydrobromide 10 MG TABLET PO (07:58)
[2022-05-04] MEDS: Tamsulosin HCL 0.4 MG CAPSULE PO (07:58)
[2022-05-04 08:25] VITALS: BP 126/77; PULSE 77; RESP 16; TEMP 36.6; O2SAT 97
[2022-05-04] MEDS: LORazepam 1 MG TABLET PO (10:19)
[2022-05-04] MEDS: Venlafaxine HCl ER 75 MG CAP.ER.24H PO (11:36)
[2022-05-04 18:00] VITALS: BP 128/75; PULSE 81; RESP 17; TEMP 36.8; O2SAT 95
[2022-05-04] MEDS: Mirtazapine 30 MG TABLET PO (20:36)
[2022-05-04] MEDS: cloZAPine 100 MG TABLET 200 MG PO (20:36)
[2022-05-04] MEDS: Melatonin 3 MG TABLET 6 MG PO (20:36)
[2022-05-04] MEDS: Atorvastatin Calcium 20 MG TABLET PO (20:36)
[2022-05-04] MEDS: Lithium Carbonate ER 300 MG TABLET.ER 600 MG PO (20:36)
--- NOTE | 2022-05-04 21:41 | P.PNPSI_ITS ---
Subjective Subjective Date of Service: 05/04/22 Reason For Visit: MDD Recurrent Episode Severe PTSD Subjective Notes: Conditional Voluntary Interim History: Patient has been increasingly depressed suicidally preoccupied ruminating. States it does not feel like an entity telling him to kill himself but that the patient wants to and feels unsafe cannot really describe his thought process but states I am at the end of my rope unclear if he connects this to recent family meeting Effexor had recently been titrated off Medication Compliance: Yes Mental Status Exam Mental Status Exam Patient Appearance: Well Grooomed and Appropriate Patient Orientation: Person and Situation Level of Consciousness: Awake and Appropriate Patient Behavior: Guarded and Passive Mood Description: Withdrawn, Depressed and Anxious Affect Description: Constricted, Anxious, Blunted and Sad Patient Cognition Impaired: Yes Ability to Follow Directions: Good Speech Pattern: Clear and [place]over[place] Hallucinations: None Delusions: Not Present Thought Process: Distracted, Rumination and Linear Thought Content: positive for [place] and positive for Circumstantial Depressive Symptoms: Thoughts of /Suicide Abnormal Motor Activity Signs and Symptoms: Psychomotor Retardation Judgement: Fair Judgement and Insight: Increasing thoughts of self-harm including in this setting Diagnostics Vital Signs (24Hr): Vital Signs - 24 hr 05/04/22 08:25 05/04/22 18:00 Temperature 97.8 F 98.3 F Pulse Rate 77 81 Respiratory Rate 16 17 Blood Pressure 126/77 128/75 Pulse Oximetry 97 95 Oxygen Delivery Method Room Air Room Air BMI result Body Mass Index 28.0 Labs 05/01/22 07:07 Imaging Radiology Impressions: ITS Impressions Brain MRI 04/24/22 09:39 IMPRESSION: - No acute intracranial findings. No acute infarcts. - There is global cerebral volume loss and there is mild chronic microangiopathy. Medications Medications Current Medications Acetaminophen (Acetaminophen 325 Mg Tablet) 650 mg PO Q6H PRN PRN Reason: Headache/Pain Mild Scale (1-3) Last Admin: 04/26/22 06:02 Dose: 650 mg Al Hydroxide/Mg Hydroxide (Magnesium Hydrox/Alum Hydrox 30 Ml Oral.Susp) 30 ml PO Q6H PRN PRN Reason: Heartburn/Nausea Atorvastatin Calcium (Atorvastatin Calcium 20 Mg Tablet) 20 mg PO BEDTIME [facility] Last Admin: 05/04/22 20:36 Dose: 20 mg Clozapine (Clozapine 100 Mg Tablet) 200 mg PO BEDTIME [facility] Last Admin: 05/04/22 20:36 Dose: 200 mg Finasteride (Finasteride 5 Mg Tablet) 5 mg PO DAILY [facility] Last Admin: 05/04/22 07:57 Dose: 5 mg [place] Carbonate ([place] Carbonate Er 300 Mg Tablet.Er) 600 mg PO BEDTIME [facility] Last Admin: 05/04/22 20:36 Dose: 600 mg Lorazepam (Lorazepam 0.5 Mg Tablet) 0.5 mg PO TID [facility] Last Admin: 05/04/22 20:36 Dose: 0.5 mg Lorazepam (Lorazepam 1 Mg Tablet) 1 mg PO Q4H PRN PRN Reason: Anxiety Last Admin: 05/04/22 10:19 Dose: 1 mg Magnesium Hydroxide (Milk Of Magnesia 30 Ml Oral.Susp) 30 ml PO DAILY PRN PRN Reason: Constipation Melatonin (Melatonin 3 Mg Tablet) 6 mg PO BEDTIME [facility] Last Admin: 05/04/22 20:36 Dose: 6 mg Mirtazapine (Mirtazapine 30 Mg Tablet) 30 mg PO BEDTIME [facility] Last Admin: 05/04/22 20:36 Dose: 30 mg Senna (Sennosides 8.6 Mg Tablet) 17.2 mg PO BEDTIME PRN PRN Reason: constipation Tamsulosin HCl (Tamsulosin Hcl 0.4 Mg Capsule) 0.4 mg PO DAILY [facility] Last Admin: 05/04/22 07:58 Dose: 0.4 mg Trazodone HCl (Trazodone Hcl 50 Mg Tablet) 50 mg PO BEDTIME MRX1 PRN PRN Reason: Insomnia Last Admin: 04/12/22 20:31 Dose: 50 mg Venlafaxine HCl (Venlafaxine Hcl Er 75 Mg Cap.Er.24h) 75 mg PO DAILY [facility] Last Admin: 05/04/22 11:36 Dose: 75 mg Vortioxetine (Vortioxetine Hydrobromide 10 Mg Tablet) 10 mg PO DAILY [facility] Last Admin: 05/04/22 07:58 Dose: 10 mg Allergies Allergies Allergy/AdvReac Type Severity Reaction Status Date / Time levofloxacin [From Levaquin] Allergy Rash Verified 04/24/22 18:49 Penicillins Allergy Rash Verified 04/11/22 00:44 Assessment & Plan Assessment & Plan (1) Major depressive disorder with psychotic features: Status: Acute Code(s): F32.3 - Major depressive disorder, single episode, severe with psychotic features Plan Agree with po Macrobid 100 mg bid for 7-10 d plan for UTI 04/28/2022 States he can maintain safety in this setting as then p.r.n. 1 feeling recently anxious or agitated. He is asking about ECT and whether perhaps a different technique could be used and calls placed more hospital records have been asked for. Normal ECT would certainly be a treatment of choice given patient's risk to him self and psychotic depression but unclear if this was helpful previously. Increase clozapine to 200 mg check level continue lithium both clozapine and lithium have been shown to decrease the level of suicidal and impulsive risk. Taper Effexor seem worse at 150 mg Trintellix 5 mg started consider Seroquel or olanzapine p.r.n will review case with . Plan 1. Continue cross taper of Effexor to Trintellix. Last dose of Effexor today, Trintellix increased to 10 mg tomorrow. 2. Continue with Clozaril and LIthium. 3. F/U CBC. 4. Family meeting tomorrow. 5. Consider ECT. 6. [place] level, basic metabolic panel, TSH for tomorrow morning. Blood work came back normal 05/04/2022 Patient placed on one-to-one for safety. Will get labs EKG medical clearance for ECT. Still trying to get records from [facility] regarding past ECT treatment. Restart some dose of Effexor in case any type of withdrawal syndrome patient is becoming increasingly suicidal in spite of clozapine and lithium. Limited ability to engage regarding his internal state Patient educated on: medication risk/benefits and ECT Informed Consent: understands Reason for contiued inpatient stay Substantial Risk for: harm to self Time Spent With Patient Time: Total time managing care of this patient today _40__ minutes.
--- NOTE | 2022-05-05 08:00 | ECG_ITS ---
Test Reason : pre ect Blood Pressure : / mmHG Vent. Rate : 084 BPM Atrial Rate : 084 BPM P-R Int : 164 ms QRS Dur : 128 ms QT Int : 400 ms P-R-T Axes : 050 -54 118 degrees QTc Int : 472 ms Normal sinus rhythm Left axis deviation Left bundle branch block Abnormal ECG No previous ECGs available Referred By: Chacho Torres Electronically Signed By:TANIA STILES MD
[2022-05-05 08:09] LABS: MANUAL DIFF FLAG NO
[2022-05-05 08:10] VITALS: BP 150/83; PULSE 79; RESP 16; TEMP 36.3; O2SAT 96
[2022-05-05 08:13] LABS: Basophils Percent Auto 0.5 % (0-2); Eosinophils Absolute Auto 0.1 X10*3/uL (0.0-0.4); Eosinophils Percent Auto 1.9 % (0-4); Hematocrit 43.1 % (42.0-52.0); Hemoglobin 13.7 g/dl (14.0-18.0); Imm Gran Abs Auto 0.02 X10*3/uL (0.00-0.03); Imm Gran Pct Auto 0.3 % (0.0-0.4); Lymphocytes Absolute Auto 1.9 X10*3/uL (1.2-4.9); Lymphocytes Percent Auto 32.2 % (20-40); Mean Corpuscular HGB Conc 31.8 g/dl (31.0-36.0); Mean Corpuscular Hemoglobin 29.7 pg (27.0-33.0); Mean Corpuscular Volume 93.5 fL (80.0-98.0); Monocytes Absolute Auto 0.6 X10*3/uL (0.1-1.2); Monocytes Percent Auto 9.7 % (2-11); Neutrophils Absolute Auto 3.2 x10*3/uL (2.0-8.3); Neutrophils Percent Auto 55.4 % (45-73); Platelet Count 207 X10*3/uL (160-400); Red Blood Count 4.61 X10*6/uL (4.60-5.80); Red Cell Distribution Width 12.8 % (11.0-16.0); White Blood Count 5.8 X10*3/uL (4.8-10.8)
[2022-05-05] MEDS: Vortioxetine Hydrobromide 10 MG TABLET PO (08:25)
[2022-05-05] MEDS: Finasteride 5 MG TABLET PO (08:25)
[2022-05-05] MEDS: Venlafaxine HCl ER 75 MG CAP.ER.24H PO (08:25)
[2022-05-05] MEDS: LORazepam 0.5 MG TABLET PO ×3 (08:25→20:31)
[2022-05-05] MEDS: Tamsulosin HCL 0.4 MG CAPSULE PO (08:25)
[2022-05-05 08:30] LABS: Alanine Aminotransferase 37 U/L (0-40); Albumin Level 3.8 g/dL (3.5-5.0); Alkaline Phosphatase 90 U/L (39-117); Anion Gap 10 (12-20); Aspartate Amino Transferase 18 U/L (5-37); Bilirubin Total 0.9 mg/dL (0.0-1.0); Blood Urea Nitrogen 17 mg/dL (9-16); Carbon Dioxide 28 mmol/L (22-29); Chloride 107 mmol/L (96-108); Creatinine Clr Calc Pharmacy 65.9; Estimated Glomerular Filt Rate > 60; Glucose Fasting 130 mg/dL (60-99); Potassium 4.3 mmol/L (3.3-5.1); Sodium 141 mmol/L (135-145); Total Protein 5.6 g/dL (6.5-8.0)
--- NOTE | 2022-05-05 15:39 | HO.PSYCHPN ---
Subjective Subjective Date of Service: 05/05/22 Reason For Visit: MDD Recurrent Episode Severe PTSD Subjective Notes: Conditional Voluntary Interim History: The nursing staff reported the patient has been on one-to-one since he has reported suicidality since yesterday. Yesterday we started the workout for ECT and EKG and hospital consult was ordered. On interview the patient reports 6 survey goins of depression. We will try to get the record from [facility] regarding his previous ECT treatment. He agreed to have ECT tomorrow. Mental Status Exam Mental Status Exam Patient Appearance: Well Grooomed and Appropriate Patient Orientation: Person and Situation Level of Consciousness: Awake and Appropriate Patient Behavior: Guarded and Passive Mood Description: Withdrawn and Depressed Affect Description: Constricted Patient Cognition Impaired: Yes Ability to Follow Directions: Good Speech Pattern: Clear Hallucinations: None Delusions: Not Present Thought Process: Distracted Thought Content: positive for [place] and positive for Circumstantial Judgement: Poor Diagnostics Vital Signs (24Hr): Vital Signs - 24 hr 05/04/22 18:00 05/05/22 08:10 Temperature 98.3 F 97.4 F Pulse Rate 81 79 Respiratory Rate 17 16 Blood Pressure 128/75 150/83 H Pulse Oximetry 95 96 Oxygen Delivery Method Room Air Room Air BMI result Body Mass Index 28.0 Labs 05/05/22 07:54 05/05/22 07:54 Labs: Laboratory Results - last 48 hr 05/05/22 05/05/22 07:54 07:54 WBC 5.8 RBC 4.61 Hgb 13.7 L Hct 43.1 MCV 93.5 MCH 29.7 MCHC 31.8 RDW 12.8 Plt Count 207 MPV 9.0 L Immature Gran % (Auto) 0.3 Neut % (Auto) 55.4 Lymph % (Auto) 32.2 [place] % (Auto) 9.7 Eos % (Auto) 1.9 Baso % (Auto) 0.5 Lymph # (Auto) 1.9 [place] # (Auto) 0.6 Eos # (Auto) 0.1 Baso # (Auto) 0.0 Abs Immat Gran (auto) 0.02 Absolute Neuts (auto) 3.2 Absolute Nucleated RBC 0.000 Nucleated RBC % (auto) 0.0 Sodium 141 Potassium 4.3 Chloride 107 Carbon Dioxide 28 Anion Gap 10 L BUN 17 H Creatinine 1.03 Estim Creat Clear Calc 65.9 Estimated GFR > 60 Fasting Glucose 130 H Calcium 9.0 Total Bilirubin 0.9 AST 18 ALT 37 Alkaline Phosphatase 90 Total Protein 5.6 L Albumin 3.8 Imaging Radiology Impressions: ITS Impressions Brain MRI 04/24/22 09:39 IMPRESSION: - No acute intracranial findings. No acute infarcts. - There is global cerebral volume loss and there is mild chronic microangiopathy. Medications Medications Current Medications Acetaminophen (Acetaminophen 325 Mg Tablet) 650 mg PO Q6H PRN PRN Reason: Headache/Pain Mild Scale (1-3) Last Admin: 04/26/22 06:02 Dose: 650 mg Al Hydroxide/Mg Hydroxide (Magnesium Hydrox/Alum Hydrox 30 Ml Oral.Susp) 30 ml PO Q6H PRN PRN Reason: Heartburn/Nausea Atorvastatin Calcium (Atorvastatin Calcium 20 Mg Tablet) 20 mg PO BEDTIME [facility] Last Admin: 05/04/22 20:36 Dose: 20 mg Clozapine (Clozapine 100 Mg Tablet) 200 mg PO BEDTIME [facility] Last Admin: 05/04/22 20:36 Dose: 200 mg Finasteride (Finasteride 5 Mg Tablet) 5 mg PO DAILY [facility] Last Admin: 05/05/22 08:25 Dose: 5 mg [place] Carbonate ([place] Carbonate Er 300 Mg Tablet.Er) 600 mg PO BEDTIME [facility] Last Admin: 05/04/22 20:36 Dose: 600 mg Lorazepam (Lorazepam 0.5 Mg Tablet) 0.5 mg PO TID [facility] Last Admin: 05/05/22 14:20 Dose: 0.5 mg Lorazepam (Lorazepam 1 Mg Tablet) 1 mg PO Q4H PRN PRN Reason: Anxiety Last Admin: 05/04/22 10:19 Dose: 1 mg Magnesium Hydroxide (Milk Of Magnesia 30 Ml Oral.Susp) 30 ml PO DAILY PRN PRN Reason: Constipation Melatonin (Melatonin 3 Mg Tablet) 6 mg PO BEDTIME [facility] Last Admin: 05/04/22 20:36 Dose: 6 mg Mirtazapine (Mirtazapine 30 Mg Tablet) 30 mg PO BEDTIME [facility] Last Admin: 05/04/22 20:36 Dose: 30 mg Senna (Sennosides 8.6 Mg Tablet) 17.2 mg PO BEDTIME PRN PRN Reason: constipation Tamsulosin HCl (Tamsulosin Hcl 0.4 Mg Capsule) 0.4 mg PO DAILY [facility] Last Admin: 05/05/22 08:25 Dose: 0.4 mg Trazodone HCl (Trazodone Hcl 50 Mg Tablet) 50 mg PO BEDTIME MRX1 PRN PRN Reason: Insomnia Last Admin: 04/12/22 20:31 Dose: 50 mg Venlafaxine HCl (Venlafaxine Hcl Er 75 Mg Cap.Er.24h) 75 mg PO DAILY [facility] Last Admin: 05/05/22 08:25 Dose: 75 mg Vortioxetine (Vortioxetine Hydrobromide 10 Mg Tablet) 10 mg PO DAILY [facility] Last Admin: 05/05/22 08:25 Dose: 10 mg Allergies Allergies Allergy/AdvReac Type Severity Reaction Status Date / Time levofloxacin [From Levaquin] Allergy Rash Verified 04/24/22 18:49 Penicillins Allergy Rash Verified 04/11/22 00:44 Assessment & Plan Assessment & Plan (1) Major depressive disorder with psychotic features: Status: Acute Code(s): F32.3 - Major depressive disorder, single episode, severe with psychotic features Plan Agree with po Macrobid 100 mg bid for 7-10 d plan for UTI 04/28/2022 States he can maintain safety in this setting as then p.r.n. 1 feeling recently anxious or agitated. He is asking about ECT and whether perhaps a different technique could be used and calls placed more hospital records have been asked for. Normal ECT would certainly be a treatment of choice given patient's risk to him self and psychotic depression but unclear if this was helpful previously. Increase clozapine to 200 mg check level continue lithium both clozapine and lithium have been shown to decrease the level of suicidal and impulsive risk. Taper Effexor seem worse at 150 mg Trintellix 5 mg started consider Seroquel or olanzapine p.r.n will review case with . Plan 1. Continue cross taper of Effexor to Trintellix. Last dose of Effexor today, Trintellix increased to 10 mg tomorrow. 2. Continue with Clozaril and LIthium. 3. F/U CBC. 4. Family meeting tomorrow. 5. Consider ECT. Workout for ECT started, scheduled fist one on 05/06 6. [place] level, basic metabolic panel, TSH for tomorrow morning. Blood work came back normal 7. One-to-one observation for suicidal ideation Reason for contiued inpatient stay Substantial Risk for: inability to function, rapid decompensation and med/psych decompensation Time Spent With Patient Time: Total time managing care of this patient today __20__ minutes.
--- NOTE | 2022-05-05 17:32 | HO.PM.IMCN ---
History of Present Illness Data of Consult Service Date: 05/05/22 Requesting physician: Chacho Torres Primary Care Provider: Nonstaff Physician HPI Reason for consult: ECT eval 72-year-old male with history of anxiety/depression, glaucoma, hypercholesterolemia, hypertension recently treated for UTI admitted to [facility] with consult placed to Medicine for ECT evaluation. The patient has no known history of CHF or coronary artery disease. He is able to ambulate and climb stairs without any significant shortness of breath. Currently denies any shortness of breath, lightheadedness, palpitations, or chest pain. No history of seizures. Review of Systems Review of Systems: General: No fevers, malaise, unintentional weight loss HEENT: No blurred vision, diplopia. No sore throat, nasal congestion, rhinorrhea, sinus pain, ear pain Cardiovascular: No chest pain, palpitations, or leg edema Respiratory: No shortness of breath, wheezing, cough GI: No abdominal pain, nausea, vomiting, diarrhea, constipation, melena, hematochezia : No dysuria, hematuria, increased urinary frequency, decreased urinary output MSK: No myalgia, back pain Neuro: No headaches, weakness, paresthesias Skin: No rashes or lesions PMFSH Medical History Anxiety Depression Glaucoma Hypercholesteremia Hypertension Laceration of abdomen Laceration of chest Laceration of wrist UTI (urinary tract infection) Surgical History History of laparotomy Social History Household Members: Spouse Housing: House Are you a primary career placement specialist to a significant other at home: No Do you presently have visiting nurse or other home services: No Patient Tobacco Use Status: Former Tobacco user Quit Date: 03/2200 Tobacco use type: Cigarette and Cigar Smoked in Last 30 Days: No e-Cigarette/Vaping Use: Never Used Patient Interested in Nicotine Replacement: No Use of substances other than those prescribed or required for medical reasons: No Currently Displaying Signs/Symptoms of Drug Intoxication Withdrawal: No Any prior treatment program specific to substance use: No Advance Directives: No Advance Directives Information Provided: No Suicidal Behavior: History of suicide attemps Current/Past Psychiatric Disorders: Alcohol abuse, Chronic mental illess and Mood disorder Phan Symptoms: Impulsivity Family History: Attempts Change in Treatment: Change in provider Access to Firearms: No Do you have thoughts of harming others: None Do you have a plan to hurt others: No Plan Do you have the means to hurt others: Yes (pervasive thoughts of using kitchen knife to harm/kill and self) Recently lost weight without trying: No Nutrition Risks: No Nutritional Risk service: No Sexual orientation: Straight/Heterosexual Gender identity: Male Meds Allergies Allergy/AdvReac Type Severity Reaction Status Date / Time levofloxacin [From Levaquin] Allergy Rash Verified 04/24/22 18:49 Penicillins Allergy Rash Verified 04/11/22 00:44 Active Medications: Current Medications Acetaminophen (Acetaminophen 325 Mg Tablet) 650 mg PO Q6H PRN PRN Reason: Headache/Pain Mild Scale (1-3) Last Admin: 04/26/22 06:02 Dose: 650 mg Al Hydroxide/Mg Hydroxide (Magnesium Hydrox/Alum Hydrox 30 Ml Oral.Susp) 30 ml PO Q6H PRN PRN Reason: Heartburn/Nausea Atorvastatin Calcium (Atorvastatin Calcium 20 Mg Tablet) 20 mg PO BEDTIME DIANNE Last Admin: 05/04/22 20:36 Dose: 20 mg Clozapine (Clozapine 100 Mg Tablet) 200 mg PO BEDTIME DIANNE Last Admin: 05/04/22 20:36 Dose: 200 mg Finasteride (Finasteride 5 Mg Tablet) 5 mg PO DAILY DIANNE Last Admin: 05/05/22 08:25 Dose: 5 mg [place] Carbonate ([place] Carbonate Er 300 Mg Tablet.Er) 600 mg PO BEDTIME DIANNE Last Admin: 05/04/22 20:36 Dose: 600 mg Lorazepam (Lorazepam 0.5 Mg Tablet) 0.5 mg PO TID DIANNE Last Admin: 05/05/22 14:20 Dose: 0.5 mg Lorazepam (Lorazepam 1 Mg Tablet) 1 mg PO Q4H PRN PRN Reason: Anxiety Last Admin: 05/04/22 10:19 Dose: 1 mg Magnesium Hydroxide (Milk Of Magnesia 30 Ml Oral.Susp) 30 ml PO DAILY PRN PRN Reason: Constipation Melatonin (Melatonin 3 Mg Tablet) 6 mg PO BEDTIME DIANNE Last Admin: 05/04/22 20:36 Dose: 6 mg Mirtazapine (Mirtazapine 30 Mg Tablet) 30 mg PO BEDTIME DIANNE Last Admin: 05/04/22 20:36 Dose: 30 mg Senna (Sennosides 8.6 Mg Tablet) 17.2 mg PO BEDTIME PRN PRN Reason: constipation Tamsulosin HCl (Tamsulosin Hcl 0.4 Mg Capsule) 0.4 mg PO DAILY [facility] Last Admin: 05/05/22 08:25 Dose: 0.4 mg Trazodone HCl (Trazodone Hcl 50 Mg Tablet) 50 mg PO BEDTIME MRX1 PRN PRN Reason: Insomnia Last Admin: 04/12/22 20:31 Dose: 50 mg Venlafaxine HCl (Venlafaxine Hcl Er 75 Mg Cap.Er.24h) 75 mg PO DAILY [facility] Last Admin: 05/05/22 08:25 Dose: 75 mg Vortioxetine (Vortioxetine Hydrobromide 10 Mg Tablet) 10 mg PO DAILY [facility] Last Admin: 05/05/22 08:25 Dose: 10 mg Home Medications Medication Instructions Recorded Confirmed Last Taken Type clozapine 50 mg tablet 1 tab PO BEDTIME 04/11/22 04/11/22 04/10/22 History finasteride 5 mg tablet 1 tab PO DAILY 04/11/22 04/11/22 Unknown History lithium carbonate 300 mg 1 tab PO BEDTIME 04/11/22 04/11/22 04/10/22 History tablet,extended release mirtazapine 30 mg tablet 1 tab PO BEDTIME 04/11/22 04/11/22 Unknown History tamsulosin 0.4 mg capsule 1 cap PO DAILY 04/11/22 04/11/22 Unknown History venlafaxine 75 mg capsule,extended 1 cap PO QAM 04/11/22 04/11/22 Unknown History release 24 hr Physical Exam Vital Signs and Narrative: Vital Signs: Last Vital Signs Temp 97.4 F 05/05/22 08:10 Pulse 79 05/05/22 08:10 Resp 16 05/05/22 08:10 BP 150/83 H 05/05/22 08:10 Pulse Ox 96 05/05/22 08:10 O2 Del Method 05/05/22 08:10 BMI result Body Mass Index 28.0 Constitutional - Awake and Alert, No apparent distress Eyes - PERRLA, EOMI Cardiovascular - S1S2, RRR, No edema Respiratory - Normal lung expansion, Normal respiratory effort, No respiratory distress, CTA bilaterally Gastrointestinal - NT / ND; +BS; No rebound or guarding Extremities - no calf tenderness bilaterally, no swelling Skin - Warm/Dry Neurological - Alert & oriented x3 Psychological - Appropriate affect Results Labs 05/05/22 07:54 05/05/22 07:54 Labs: Laboratory Results - last 24 hr 05/05/22 05/05/22 07:54 07:54 MCV 93.5 MCH 29.7 MCHC 31.8 RDW 12.8 Plt Count 207 MPV 9.0 L Immature Gran % (Auto) 0.3 Neut % (Auto) 55.4 Lymph % (Auto) 32.2 [place] % (Auto) 9.7 Eos % (Auto) 1.9 Baso % (Auto) 0.5 Lymph # (Auto) 1.9 [place] # (Auto) 0.6 Eos # (Auto) 0.1 Baso # (Auto) 0.0 Abs Immat Gran (auto) 0.02 Absolute Neuts (auto) 3.2 Absolute Nucleated RBC 0.000 Nucleated RBC % (auto) 0.0 Anion Gap 10 L Estim Creat Clear Calc 65.9 Estimated GFR > 60 Fasting Glucose 130 H Calcium 9.0 Total Bilirubin 0.9 AST 18 ALT 37 Alkaline Phosphatase 90 Total Protein 5.6 L Albumin 3.8 Assessment and Plan (1) Routine medical exam: Status: Acute Plan 72-year-old male with history of anxiety/depression, glaucoma, hypercholesterolemia, hypertension recently treated for UTI admitted to [facility] psych with consult placed to Medicine for ECT evaluation. #MDD -Plan per psychiatry -Has undergone ect in past without adverse effect. At this time, there exists no medical contraindication for patient to receive ECT at this time Thank you for allowing me to participate in this consult. Signing off at this time. Please do not hesitate to call for further questions. Time Spent With Patient Time: Total time managing care of this patient today ____ minutes.
[2022-05-05 18:00] VITALS: BP 139/83; PULSE 81; RESP 18; TEMP 36.6; O2SAT 95
[2022-05-05] MEDS: Atorvastatin Calcium 20 MG TABLET PO (20:30)
[2022-05-05] MEDS: cloZAPine 100 MG TABLET 200 MG PO (20:30)
[2022-05-05] MEDS: Lithium Carbonate ER 300 MG TABLET.ER 600 MG PO (20:31)
[2022-05-05] MEDS: Melatonin 3 MG TABLET 6 MG PO (20:31)
[2022-05-05] MEDS: Mirtazapine 30 MG TABLET PO (20:31)
[2022-05-06] VITALS (9 sets, daily range): BP systolic 107–176; BP diastolic 60–102; PULSE 74–90; RESP 15–18; TEMP 36.3–36.6; O2SAT 93–100; BMI 28.7
[2022-05-06 03:13] LABS: Clozapine (Clozaril) 338 mcg/L; Norclozapine 216 mcg/L (25-400)
[2022-05-06] MEDS: LORazepam 1 MG TABLET PO (09:29)
--- NOTE | 2022-05-06 12:06 | HO.PSYCHPN ---
Subjective Subjective Date of Service: 05/06/22 Reason For Visit: MDD Recurrent Episode Severe PTSD Subjective Notes: Conditional Voluntary Interim History: The nursing staff reported patient still one-to-one for suicidality. He had been fasting waiting for ECT. On interview the patient reports that he still depressed and he wants to have ECT to improve his mood. We review the records of [facility] that came back yesterday and he had used right unilateral ECT. We will do ECT today in the afternoon as per PACU schedule Mental Status Exam Mental Status Exam Patient Appearance: Appropriate Patient Orientation: Person and Situation Level of Consciousness: Awake and Appropriate Patient Behavior: Guarded and Passive Mood Description: Calm Affect Description: Constricted Patient Cognition Impaired: Yes Ability to Follow Directions: Good Speech Pattern: Clear Hallucinations: None Delusions: Not Present Thought Process: Evasive Thought Content: positive for [place], positive for Perseveration and positive for Poverty of Content Depressive Symptoms: Increased Anxiety, Feelings of Worthlessness and Feelings of Guilt Judgement: Poor Diagnostics Vital Signs (24Hr): Vital Signs - 24 hr 05/05/22 18:00 05/06/22 10:19 Temperature 97.9 F 97.9 F Pulse Rate 81 77 Respiratory Rate 18 15 Blood Pressure 139/83 122/60 Pulse Oximetry 95 95 Oxygen Delivery Method Room Air Room Air BMI result Body Mass Index 28.0 Labs 05/05/22 07:54 05/05/22 07:54 Labs: Laboratory Results - last 48 hr 04/30/22 05/05/22 05/05/22 07:45 07:54 07:54 WBC 5.8 RBC 4.61 Hgb 13.7 L Hct 43.1 MCV 93.5 MCH 29.7 MCHC 31.8 RDW 12.8 Plt Count 207 MPV 9.0 L Immature Gran % (Auto) 0.3 Neut % (Auto) 55.4 Lymph % (Auto) 32.2 [place] % (Auto) 9.7 Eos % (Auto) 1.9 Baso % (Auto) 0.5 Lymph # (Auto) 1.9 [place] # (Auto) 0.6 Eos # (Auto) 0.1 Baso # (Auto) 0.0 Abs Immat Gran (auto) 0.02 Absolute Neuts (auto) 3.2 Absolute Nucleated RBC 0.000 Nucleated RBC % (auto) 0.0 Sodium 141 Potassium 4.3 Chloride 107 Carbon Dioxide 28 Anion Gap 10 L BUN 17 H Creatinine 1.03 Estim Creat Clear Calc 65.9 Estimated GFR > 60 Fasting Glucose 130 H Calcium 9.0 Total Bilirubin 0.9 AST 18 ALT 37 Alkaline Phosphatase 90 Total Protein 5.6 L Albumin 3.8 Clozapine 338 Norclozapine 216 Imaging Radiology Impressions: ITS Impressions Brain MRI 04/24/22 09:39 IMPRESSION: - No acute intracranial findings. No acute infarcts. - There is global cerebral volume loss and there is mild chronic microangiopathy. Medications Medications Current Medications Acetaminophen (Acetaminophen 325 Mg Tablet) 650 mg PO Q6H PRN PRN Reason: Headache/Pain Mild Scale (1-3) Last Admin: 04/26/22 06:02 Dose: 650 mg Al Hydroxide/Mg Hydroxide (Magnesium Hydrox/Alum Hydrox 30 Ml Oral.Susp) 30 ml PO Q6H PRN PRN Reason: Heartburn/Nausea Atorvastatin Calcium (Atorvastatin Calcium 20 Mg Tablet) 20 mg PO BEDTIME DIANNE Last Admin: 05/05/22 20:30 Dose: 20 mg Clozapine (Clozapine 100 Mg Tablet) 200 mg PO BEDTIME DIANNE Last Admin: 05/05/22 20:30 Dose: 200 mg Finasteride (Finasteride 5 Mg Tablet) 5 mg PO DAILY DIANNE Last Admin: 05/06/22 11:47 Dose: Not Given [place] Carbonate ([place] Carbonate Er 300 Mg Tablet.Er) 600 mg PO BEDTIME DIANNE Last Admin: 05/05/22 20:31 Dose: 600 mg Lorazepam (Lorazepam 0.5 Mg Tablet) 0.5 mg PO TID DIANNE Last Admin: 05/06/22 11:47 Dose: Not Given Lorazepam (Lorazepam 1 Mg Tablet) 1 mg PO Q4H PRN PRN Reason: Anxiety Last Admin: 05/06/22 09:29 Dose: 1 mg Magnesium Hydroxide (Milk Of Magnesia 30 Ml Oral.Susp) 30 ml PO DAILY PRN PRN Reason: Constipation Melatonin (Melatonin 3 Mg Tablet) 6 mg PO BEDTIME DIANNE Last Admin: 05/05/22 20:31 Dose: 6 mg Mirtazapine (Mirtazapine 30 Mg Tablet) 30 mg PO BEDTIME DIANNE Last Admin: 05/05/22 20:31 Dose: 30 mg Senna (Sennosides 8.6 Mg Tablet) 17.2 mg PO BEDTIME PRN PRN Reason: constipation Tamsulosin HCl (Tamsulosin Hcl 0.4 Mg Capsule) 0.4 mg PO DAILY [facility] Last Admin: 05/06/22 11:47 Dose: Not Given Trazodone HCl (Trazodone Hcl 50 Mg Tablet) 50 mg PO BEDTIME MRX1 PRN PRN Reason: Insomnia Last Admin: 04/12/22 20:31 Dose: 50 mg Venlafaxine HCl (Venlafaxine Hcl Er 75 Mg Cap.Er.24h) 75 mg PO DAILY [facility] Last Admin: 05/06/22 11:47 Dose: Not Given Vortioxetine (Vortioxetine Hydrobromide 10 Mg Tablet) 10 mg PO DAILY [facility] Last Admin: 05/06/22 11:48 Dose: Not Given Allergies Allergies Allergy/AdvReac Type Severity Reaction Status Date / Time levofloxacin [From Levaquin] Allergy Rash Verified 04/24/22 18:49 Penicillins Allergy Rash Verified 04/11/22 00:44 Assessment & Plan Assessment & Plan (1) Routine medical exam: Status: Acute Code(s): Z00.00 - Encounter for general adult medical examination without abnormal findings Plan 72-year-old male with history of anxiety/depression, glaucoma, hypercholesterolemia, hypertension recently treated for UTI admitted to [facility] psych with consult placed to Medicine for ECT evaluation. #MDD -Plan per psychiatry -Has undergone ect in past without adverse effect. At this time, there exists no medical contraindication for patient to receive ECT at this time Thank you for allowing me to participate in this consult. Signing off at this time. Please do not hesitate to call for further questions. Plan 1. Continue with same treatment. 2. Start ECT today Reason for contiued inpatient stay Substantial Risk for: inability to function, rapid decompensation and med/psych decompensation Time Spent With Patient Time: Total time managing care of this patient today __20__ minutes.
--- NOTE | 2022-05-06 13:20 | P.HPSUR_ITS ---
Pre-Procedural Eval Section A Date of Service: 05/06/22 The patient is an INPATIENT: Yes Changes since office visit: No Cold of Flu in the past 2 weeks, No New Medical Problems, No Changes in Medication and No Patient answered all questions The History & Physical has been completed within 30 days and I have reviewed it.: Yes Section B Chief Complaint: MDD Recurrent Episode Severe PTSD Details of Present Illness: hx of depression worsened with psychosis and active suicidal ideation in the last months. He had more than 13 admissions in the last 5 years. Relevant Family History (Specify if Yes): Yes Relevant Social History: None Present Medications: see Short Stay Collaborative assessment Medical History: No relevant PMH History of Previous Operations: No relevant previous surgery Allergies: Allergies Allergy/AdvReac Type Severity Reaction Status Date / Time levofloxacin [From Levaquin] Allergy Rash Verified 04/24/22 18:49 Penicillins Allergy Rash Verified 04/11/22 00:44 Review of Systems Sugical H&P ROS: Negative: Constitution, Cardiovascular, Respiratory, Neurological, Psychiatric, Hem-Onc, Allergic/Immunologic, Gastrointestinal, Genitourinary, Musculoskeletal, Integumentary, Endocrine and Eyes/Ears/Nose/Throat Exam Surgical H&P Exam: Normal: HEENT, Normal: Heart, Normal: Lungs, Normal: Extr emities, Normal: Abdomen, Normal: Skin and Normal: Neurological Plan Diagnosis/Plan: Unchanged I have reviewed the history and physical and performed a pertinent physical examination on my patient. No changes have occurred unless specified. Time Spent With Patient Time: Total time managing care of this patient today _30___ minutes.
--- NOTE | 2022-05-06 13:44 | P.PCN_ITS ---
ECT Procedure Note Diagnosis/Treatment Date of Service: 05/06/22 Diagnosis: Schizoaffective Disorder Current Treatment Number: 1 Treatment: Series Interval Clinical Notes: The patient has depression with usicidal ideation, also psychotic symptoms, on Clozaril, [place], Trintellix and a low dose of Effexor. On 1:1 observation for suicidal ideation. He had ECT in the past with some improvement. Time: Total time managing care of this patient today __30__ minutes. ECT Settings Device: THYMATRON DGx Electrode Placement: Bitemporal Program/Pulse Width: 0.25 Energy Percent: 100 Seizure Duration By EEG (in seconds): 27 By Motor Observation (in seconds): 25 Medications Administration General Anesthetic: Etomidate (14) Muscle Relaxant: Succinylcholine (100) Ancillary Medications Anti-emetics: Zofran - Pre ECT Airway Management Airway Management: Bag Mask Ventilation Treatment Recommendations Electrode Placement: Bitemporal Program/Pulse Width: 0.50 Energy Percent: 100 Pt Tolerated Procedure w/o Issue: Yes
--- NOTE | 2022-05-06 14:43 | PC.ADMIT ---
Patient returned from PACU following ECT via WC. Reported feeling sleepy and declined offer of food. BP 173/81, pulse 75, O2 94;
[2022-05-06] MEDS: LORazepam 0.5 MG TABLET PO ×2 (16:26→20:39)
[2022-05-06] MEDS: Mirtazapine 30 MG TABLET PO (20:39)
[2022-05-06] MEDS: Atorvastatin Calcium 20 MG TABLET PO (20:39)
[2022-05-06] MEDS: Melatonin 3 MG TABLET 6 MG PO (20:39)
[2022-05-06] MEDS: Lithium Carbonate ER 300 MG TABLET.ER 600 MG PO (20:39)
[2022-05-06] MEDS: cloZAPine 100 MG TABLET 200 MG PO (20:39)
[2022-05-07 06:00] VITALS: BP 132/63; PULSE 86; RESP 16; TEMP 36.8; O2SAT 95
[2022-05-07 07:00] VITALS: BMI 27.8
[2022-05-07] MEDS: Vortioxetine Hydrobromide 10 MG TABLET PO (09:16)
[2022-05-07] MEDS: Tamsulosin HCL 0.4 MG CAPSULE PO (09:16)
[2022-05-07] MEDS: LORazepam 0.5 MG TABLET PO ×3 (09:16→20:06)
[2022-05-07] MEDS: Finasteride 5 MG TABLET PO (09:16)
[2022-05-07] MEDS: Venlafaxine HCl ER 75 MG CAP.ER.24H PO (09:16)
--- NOTE | 2022-05-07 15:14 | HO.PSYCHPN ---
Subjective Subjective Date of Service: 05/07/22 Reason For Visit: MDD Recurrent Episode Severe PTSD Subjective Notes: Conditional Voluntary Interim History: The nursing staff reported the patient denies active suicidal ideation, he is able to contract for safety in the facility but remains depressed. After the ECT he was very sedated. The occupational therapist reported he attends to groups. On interview the patient denies exacerbation of depression he states that after ECT he was very tired. Mental Status Exam Mental Status Exam Patient Appearance: Well Grooomed and Appropriate Patient Orientation: Person and Situation Level of Consciousness: Awake and Appropriate Patient Behavior: Guarded and Passive Mood Description: Withdrawn Affect Description: Constricted Patient Cognition Impaired: Yes Ability to Follow Directions: Good Speech Pattern: Clear Hallucinations: None Delusions: Not Present Thought Process: Distracted and Slowed Thinking Thought Content: positive for [place], positive for Perseveration and positive for Poverty of Content Judgement: Fair Diagnostics Vital Signs (24Hr): Vital Signs - 24 hr 05/06/22 18:00 05/07/22 06:00 Temperature 97.4 F 98.3 F Pulse Rate 78 86 Respiratory Rate 18 16 Blood Pressure 107/60 132/63 Pulse Oximetry 93 95 Oxygen Delivery Method Room Air Room Air BMI result Body Mass Index 27.8 Labs 05/05/22 07:54 05/05/22 07:54 Labs: Laboratory Results - last 48 hr 04/30/22 07:45 Clozapine 338 Norclozapine 216 Imaging Radiology Impressions: ITS Impressions Brain MRI 04/24/22 09:39 IMPRESSION: - No acute intracranial findings. No acute infarcts. - There is global cerebral volume loss and there is mild chronic microangiopathy. Medications Medications Current Medications Acetaminophen (Acetaminophen 325 Mg Tablet) 650 mg PO Q6H PRN PRN Reason: Headache/Pain Mild Scale (1-3) Last Admin: 04/26/22 06:02 Dose: 650 mg Al Hydroxide/Mg Hydroxide (Magnesium Hydrox/Alum Hydrox 30 Ml Oral.Susp) 30 ml PO Q6H PRN PRN Reason: Heartburn/Nausea Atorvastatin Calcium (Atorvastatin Calcium 20 Mg Tablet) 20 mg PO BEDTIME [facility] Last Admin: 05/06/22 20:39 Dose: 20 mg Clozapine (Clozapine 100 Mg Tablet) 200 mg PO BEDTIME DIANNE Last Admin: 05/06/22 20:39 Dose: 200 mg Finasteride (Finasteride 5 Mg Tablet) 5 mg PO DAILY [facility] Last Admin: 05/07/22 09:16 Dose: 5 mg [place] Carbonate ([place] Carbonate Er 300 Mg Tablet.Er) 600 mg PO BEDTIME [facility] Last Admin: 05/06/22 20:39 Dose: 600 mg Lorazepam (Lorazepam 0.5 Mg Tablet) 0.5 mg PO TID [facility] Last Admin: 05/07/22 14:50 Dose: 0.5 mg Lorazepam (Lorazepam 1 Mg Tablet) 1 mg PO Q4H PRN PRN Reason: Anxiety Last Admin: 05/06/22 09:29 Dose: 1 mg Magnesium Hydroxide (Milk Of Magnesia 30 Ml Oral.Susp) 30 ml PO DAILY PRN PRN Reason: Constipation Melatonin (Melatonin 3 Mg Tablet) 6 mg PO BEDTIME [facility] Last Admin: 05/06/22 20:39 Dose: 6 mg Mirtazapine (Mirtazapine 30 Mg Tablet) 30 mg PO BEDTIME [facility] Last Admin: 05/06/22 20:39 Dose: 30 mg Senna (Sennosides 8.6 Mg Tablet) 17.2 mg PO BEDTIME PRN PRN Reason: constipation Tamsulosin HCl (Tamsulosin Hcl 0.4 Mg Capsule) 0.4 mg PO DAILY [facility] Last Admin: 05/07/22 09:16 Dose: 0.4 mg Trazodone HCl (Trazodone Hcl 50 Mg Tablet) 50 mg PO BEDTIME MRX1 PRN PRN Reason: Insomnia Last Admin: 04/12/22 20:31 Dose: 50 mg Venlafaxine HCl (Venlafaxine Hcl Er 75 Mg Cap.Er.24h) 75 mg PO DAILY [facility] Last Admin: 05/07/22 09:16 Dose: 75 mg Vortioxetine (Vortioxetine Hydrobromide 10 Mg Tablet) 10 mg PO DAILY [facility] Last Admin: 05/07/22 09:16 Dose: 10 mg Allergies Allergies Allergy/AdvReac Type Severity Reaction Status Date / Time levofloxacin [From Levaquin] Allergy Rash Verified 04/24/22 18:49 Penicillins Allergy Rash Verified 04/11/22 00:44 Assessment & Plan Assessment & Plan (1) Routine medical exam: Status: Acute Code(s): Z00.00 - Encounter for general adult medical examination without abnormal findings Plan 72-year-old male with history of anxiety/depression, glaucoma, hypercholesterolemia, hypertension recently treated for UTI admitted to [facility] with consult placed to Medicine for ECT evaluation. #MDD -Plan per psychiatry -Has undergone ect in past without adverse effect. At this time, there exists no medical contraindication for patient to receive ECT at this time Thank you for allowing me to participate in this consult. Signing off at this time. Please do not hesitate to call for further questions. Plan 1. Continue with same treatment. 2. ECT, 1st treatment on 05/06 Reason for contiued inpatient stay Substantial Risk for: inability to function, rapid decompensation and med/psych decompensation Time Spent With Patient Time: Total time managing care of this patient today __20__ minutes.
[2022-05-07 18:00] VITALS: BP 130/81; PULSE 76; RESP 18; TEMP 36.9; O2SAT 96
[2022-05-07] MEDS: cloZAPine 100 MG TABLET 200 MG PO (20:05)
[2022-05-07] MEDS: Melatonin 3 MG TABLET 6 MG PO (20:06)
[2022-05-07] MEDS: Atorvastatin Calcium 20 MG TABLET PO (20:06)
[2022-05-07] MEDS: Mirtazapine 30 MG TABLET PO (20:06)
[2022-05-07] MEDS: Lithium Carbonate ER 300 MG TABLET.ER 600 MG PO (20:06)
[2022-05-08] VITALS (8 sets, daily range): BP systolic 132–188; BP diastolic 77–105; PULSE 68–93; RESP 15–18; TEMP 36.2–37.6; O2SAT 93–98
--- NOTE | 2022-05-08 07:03 | P.CONAN_ITS ---
[facility] Active Problems Active Problems: All Active Problems (Updated 05/05/22 @ 18:15 by GENE Carey) Routine medical exam (Acute) UTI (urinary tract infection) (Acute) Routine history and physical examination of adult (Acute) Major depressive disorder with psychotic features (Acute) Past Medical History Medical History Anxiety Depression Glaucoma Hypercholesteremia Hypertension Laceration of abdomen Laceration of chest Laceration of wrist UTI (urinary tract infection) Family History Family history of problems with anesthesia: No Surgical History Surgical History History of laparotomy History of Problems with Anesthesia: No Social History Social History Household Members: Spouse Housing: House Are you a primary healthcare social worker to a significant other at home: No Do you presently have visiting nurse or other home services: No Patient Tobacco Use Status: Former Tobacco user Quit Date: 03/2200 Tobacco use type: Cigarette and Cigar Smoked in Last 30 Days: No e-Cigarette/Vaping Use: Never Used Patient Interested in Nicotine Replacement: No Use of substances other than those prescribed or required for medical reasons: No Currently Displaying Signs/Symptoms of Drug Intoxication Withdrawal: No Any prior treatment program specific to substance use: No Are you DNR?: No Advance Directives: No Advance Directives Information Provided: No Suicidal Behavior: History of suicide attemps Current/Past Psychiatric Disorders: Alcohol abuse, Chronic mental illess and Mood disorder Phan Symptoms: Impulsivity Family History: Attempts Change in Treatment: Change in provider Access to Firearms: No Do you have thoughts of harming others: None Do you have a plan to hurt others: No Plan Do you have the means to hurt others: Yes (pervasive thoughts of using kitchen knife to harm/kill and self) Recently lost weight without trying: No Nutrition Risks: No Nutritional Risk service: No Sexual orientation: Straight/Heterosexual Gender identity: Male Meds Allergies Allergy/AdvReac Type Severity Reaction Status Date / Time levofloxacin [From Levaquin] Allergy Rash Verified 04/24/22 18:49 Penicillins Allergy Rash Verified 04/11/22 00:44 Active Medications: Current Medications Acetaminophen (Acetaminophen 325 Mg Tablet) 650 mg PO Q6H PRN PRN Reason: Headache/Pain Mild Scale (1-3) Last Admin: 04/26/22 06:02 Dose: 650 mg Al Hydroxide/Mg Hydroxide (Magnesium Hydrox/Alum Hydrox 30 Ml Oral.Susp) 30 ml PO Q6H PRN PRN Reason: Heartburn/Nausea Atorvastatin Calcium (Atorvastatin Calcium 20 Mg Tablet) 20 mg PO BEDTIME [facility] Last Admin: 05/07/22 20:06 Dose: 20 mg Clozapine (Clozapine 100 Mg Tablet) 200 mg PO BEDTIME DIANNE Last Admin: 05/07/22 20:05 Dose: 200 mg Finasteride (Finasteride 5 Mg Tablet) 5 mg PO DAILY [facility] Last Admin: 05/07/22 09:16 Dose: 5 mg Lactated Ringer's (Lr) 1,000 mls @ 50 mls/hr IVCONT .Q20H DIANNE [place] Carbonate ([place] Carbonate Er 300 Mg Tablet.Er) 600 mg PO BEDTIME [facility] Last Admin: 05/07/22 20:06 Dose: 600 mg Lorazepam (Lorazepam 0.5 Mg Tablet) 0.5 mg PO TID [facility] Last Admin: 05/07/22 20:06 Dose: 0.5 mg Lorazepam (Lorazepam 1 Mg Tablet) 1 mg PO Q4H PRN PRN Reason: Anxiety Last Admin: 05/06/22 09:29 Dose: 1 mg Magnesium Hydroxide (Milk Of Magnesia 30 Ml Oral.Susp) 30 ml PO DAILY PRN PRN Reason: Constipation Melatonin (Melatonin 3 Mg Tablet) 6 mg PO BEDTIME [facility] Last Admin: 05/07/22 20:06 Dose: 6 mg Mirtazapine (Mirtazapine 30 Mg Tablet) 30 mg PO BEDTIME [facility] Last Admin: 05/07/22 20:06 Dose: 30 mg Senna (Sennosides 8.6 Mg Tablet) 17.2 mg PO BEDTIME PRN PRN Reason: constipation Tamsulosin HCl (Tamsulosin Hcl 0.4 Mg Capsule) 0.4 mg PO DAILY [facility] Last Admin: 05/07/22 09:16 Dose: 0.4 mg Trazodone HCl (Trazodone Hcl 50 Mg Tablet) 50 mg PO BEDTIME MRX1 PRN PRN Reason: Insomnia Last Admin: 04/12/22 20:31 Dose: 50 mg Venlafaxine HCl (Venlafaxine Hcl Er 75 Mg Cap.Er.24h) 75 mg PO DAILY [facility] Last Admin: 05/07/22 09:16 Dose: 75 mg Vortioxetine (Vortioxetine Hydrobromide 10 Mg Tablet) 10 mg PO DAILY [facility] Last Admin: 05/07/22 09:16 Dose: 10 mg Home Medications Medication Instructions Recorded Confirmed Last Taken Type clozapine 50 mg tablet 1 tab PO BEDTIME 04/11/22 04/11/22 04/10/22 History finasteride 5 mg tablet 1 tab PO DAILY 04/11/22 04/11/22 Unknown History lithium carbonate 300 mg 1 tab PO BEDTIME 04/11/22 04/11/22 04/10/22 History tablet,extended release mirtazapine 30 mg tablet 1 tab PO BEDTIME 04/11/22 04/11/22 Unknown History tamsulosin 0.4 mg capsule 1 cap PO DAILY 04/11/22 04/11/22 Unknown History venlafaxine 75 mg capsule,extended 1 cap PO QAM 04/11/22 04/11/22 Unknown History release 24 hr Exam Exam Date and Time: May 08, 2022702 Height,Weight and Vital Signs: Height 5 ft 6 in Weight 78.2 kg Last Vital Signs Temp 98.4 F 05/07/22 18:00 Pulse 76 05/07/22 18:00 Resp 18 05/07/22 18:00 BP 130/81 05/07/22 18:00 Pulse Ox 96 05/07/22 18:00 O2 Del Method Room Air 05/07/22 18:00 O2 Flow Rate 2 05/06/22 14:10 Pertinent Lab Results Pertinent Lab Results: Laboratory Tests 04/11/22 04/11/22 04/11/22 08:42 20:09 20:09 WBC RBC Hgb Hct MCV MCH MCHC RDW Plt Count MPV Immature Gran % (Auto) Neut % (Auto) Lymph % (Auto) [place] % (Auto) Eos % (Auto) Baso % (Auto) Lymph # (Auto) [place] # (Auto) Eos # (Auto) Baso # (Auto) Abs Immat Gran (auto) Absolute Neuts (auto) 3.7 Absolute Nucleated RBC Nucleated RBC % (auto) Sodium 144 Potassium 4.4 Chloride 112 H Carbon Dioxide 25 Anion Gap 11 L BUN 11 Creatinine 1.06 Estim Creat Clear Calc 63.2 Estimated GFR > 60 Random Glucose 165 H Fasting Glucose Estimat Average Glucose 108 Hemoglobin A1c % 5.4 Calcium 8.7 Total Bilirubin 0.5 Direct Bilirubin 0.2 AST 13 ALT 17 Alkaline Phosphatase 79 Total Protein 5.3 L Albumin 3.4 L Triglycerides 122 Cholesterol 100 LDL Cholesterol, Calc 47 HDL Cholesterol 29 Vitamin B12 505 Folate 14.5 TSH 2.24 Urine Color Urine Appearance Urine pH Ur Specific [place] Urine Protein Urine Glucose (UA) Urine Ketones Urine Blood Urine Nitrite Ur Leukocyte Esterase Urine RBC Urine WBC Ur Squamous Epith Cells Urine Bacteria Hyaline Casts Clozapine Norclozapine [place] 04/11/22 04/16/22 04/16/22 20:09 08:12 08:12 WBC RBC Hgb Hct MCV MCH MCHC RDW Plt Count MPV Immature Gran % (Auto) Neut % (Auto) Lymph % (Auto) [place] % (Auto) Eos % (Auto) Baso % (Auto) Lymph # (Auto) [place] # (Auto) Eos # (Auto) Baso # (Auto) Abs Immat Gran (auto) Absolute Neuts (auto) Absolute Nucleated RBC Nucleated RBC % (auto) Sodium 142 Potassium 4.3 Chloride 109 H Carbon Dioxide 27 Anion Gap 10 L BUN 12 Creatinine 0.99 Estim Creat Clear Calc 67.7 Estimated GFR > 60 Random Glucose 151 H Fasting Glucose Estimat Average Glucose Hemoglobin A1c % Calcium 9.0 Total Bilirubin Direct Bilirubin AST ALT Alkaline Phosphatase Total Protein Albumin Triglycerides Cholesterol LDL Cholesterol, Calc HDL Cholesterol Vitamin B12 Folate TSH 3.41 Urine Color Urine Appearance Urine pH Ur Specific [place] Urine Protein Urine Glucose (UA) Urine Ketones Urine Blood Urine Nitrite Ur Leukocyte Esterase Urine RBC Urine WBC Ur Squamous Epith Cells Urine Bacteria Hyaline Casts Clozapine Norclozapine [place] 0.48 L 0.77 04/18/22 04/22/22 04/22/22 06:54 09:15 14:25 WBC RBC Hgb Hct MCV MCH MCHC RDW Plt Count MPV Immature Gran % (Auto) Neut % (Auto) Lymph % (Auto) [place] % (Auto) Eos % (Auto) Baso % (Auto) Lymph # (Auto) [place] # (Auto) Eos # (Auto) Baso # (Auto) Abs Immat Gran (auto) Absolute Neuts (auto) 4.8 Absolute Nucleated RBC Nucleated RBC % (auto) Sodium 142 Potassium 3.9 Chloride 110 H Carbon Dioxide 27 Anion Gap 9 L BUN 13 Creatinine 1.07 Estim Creat Clear Calc 62.6 Estimated GFR > 60 Random Glucose 190 H Fasting Glucose Estimat Average Glucose Hemoglobin A1c % Calcium 8.7 Total Bilirubin 0.6 Direct Bilirubin AST 16 ALT 29 Alkaline Phosphatase 72 Total Protein 5.2 L Albumin 3.5 Triglycerides Cholesterol LDL Cholesterol, Calc HDL Cholesterol Vitamin B12 Folate TSH Urine Color Yellow Urine Appearance Clear Urine pH 6.5 Ur Specific [place] <= 1.005 Urine Protein Negative Urine Glucose (UA) Negative Urine Ketones Negative Urine Blood Trace H Urine Nitrite Negative Ur Leukocyte Esterase Large (3+) H Urine RBC 0-2 Urine WBC >50 H Ur Squamous Epith Cells 0-2 Urine Bacteria None Seen Hyaline Casts 0-2 Clozapine Norclozapine [place] 04/25/22 04/30/22 04/30/22 03:33 07:45 07:45 WBC RBC Hgb Hct MCV MCH MCHC RDW Plt Count MPV Immature Gran % (Auto) Neut % (Auto) Lymph % (Auto) [place] % (Auto) Eos % (Auto) Baso % (Auto) Lymph # (Auto) [place] # (Auto) Eos # (Auto) Baso # (Auto) Abs Immat Gran (auto) Absolute Neuts (auto) 3.7 Absolute Nucleated RBC Nucleated RBC % (auto) Sodium Potassium Chloride Carbon Dioxide Anion Gap BUN Creatinine Estim Creat Clear Calc Estimated GFR Random Glucose Fasting Glucose Estimat Average Glucose 105 Hemoglobin A1c % 5.3 Calcium Total Bilirubin Direct Bilirubin AST ALT Alkaline Phosphatase Total Protein Albumin Triglycerides Cholesterol LDL Cholesterol, Calc HDL Cholesterol Vitamin B12 Folate TSH Urine Color Urine Appearance Urine pH Ur Specific [place] Urine Protein Urine Glucose (UA) Urine Ketones Urine Blood Urine Nitrite Ur Leukocyte Esterase Urine RBC Urine WBC Ur Squamous Epith Cells Urine Bacteria Hyaline Casts Clozapine 338 Norclozapine 216 [place] 05/01/22 05/01/22 05/02/22 07:07 07:07 06:07 WBC RBC Hgb Hct MCV MCH MCHC RDW Plt Count MPV Immature Gran % (Auto) Neut % (Auto) Lymph % (Auto) [place] % (Auto) Eos % (Auto) Baso % (Auto) Lymph # (Auto) [place] # (Auto) Eos # (Auto) Baso # (Auto) Abs Immat Gran (auto) Absolute Neuts (auto) 2.8 Absolute Nucleated RBC Nucleated RBC % (auto) Sodium 141 Potassium 4.4 Chloride 110 H Carbon Dioxide 27 Anion Gap 8 L BUN 15 Creatinine 0.98 Estim Creat Clear Calc 69.2 Estimated GFR > 60 Random Glucose 105 Fasting Glucose Estimat Average Glucose Hemoglobin A1c % Calcium 8.8 Total Bilirubin Direct Bilirubin AST ALT Alkaline Phosphatase Total Protein Albumin Triglycerides Cholesterol LDL Cholesterol, Calc HDL Cholesterol Vitamin B12 Folate TSH 3.76 Urine Color Urine Appearance Urine pH Ur Specific [place] Urine Protein Urine Glucose (UA) Urine Ketones Urine Blood Urine Nitrite Ur Leukocyte Esterase Urine RBC Urine WBC Ur Squamous Epith Cells Urine Bacteria Hyaline Casts Clozapine Norclozapine [place] 0.88 05/05/22 05/05/22 07:54 07:54 WBC 5.8 RBC 4.61 Hgb 13.7 L Hct 43.1 MCV 93.5 MCH 29.7 MCHC 31.8 RDW 12.8 Plt Count 207 MPV 9.0 L Immature Gran % (Auto) 0.3 Neut % (Auto) 55.4 Lymph % (Auto) 32.2 [place] % (Auto) 9.7 Eos % (Auto) 1.9 Baso % (Auto) 0.5 Lymph # (Auto) 1.9 [place] # (Auto) 0.6 Eos # (Auto) 0.1 Baso # (Auto) 0.0 Abs Immat Gran (auto) 0.02 Absolute Neuts (auto) 3.2 Absolute Nucleated RBC 0.000 Nucleated RBC % (auto) 0.0 Sodium 141 Potassium 4.3 Chloride 107 Carbon Dioxide 28 Anion Gap 10 L BUN 17 H Creatinine 1.03 Estim Creat Clear Calc 65.9 Estimated GFR > 60 Random Glucose Fasting Glucose 130 H Estimat Average Glucose Hemoglobin A1c % Calcium 9.0 Total Bilirubin 0.9 Direct Bilirubin AST 18 ALT 37 Alkaline Phosphatase 90 Total Protein 5.6 L Albumin 3.8 Triglycerides Cholesterol LDL Cholesterol, Calc HDL Cholesterol Vitamin B12 Folate TSH Urine Color Urine Appearance Urine pH Ur Specific [place] Urine Protein Urine Glucose (UA) Urine Ketones Urine Blood Urine Nitrite Ur Leukocyte Esterase Urine RBC Urine WBC Ur Squamous Epith Cells Urine Bacteria Hyaline Casts Clozapine Norclozapine [place] Airway Mallampati Class: II TM Dist: >3cm Neck ROM: Full Heart: rrr Lungs: cta Assessment and Plan Assessment Anesthesia Assessment: Anesthesia Plan Discussed and Chart Reviewed Final Anesthetic Review Family History of Problems with Anesthesia: No History of Problems with Anesthesia: No NPO: Yes ASA Class: III Final Preanesthetic Review: No Changes in Pt Med Stat, Meds/Allgs Chart Reviewed and Consent Obtained/Reviewed Patient Risk: Intermediate Procedure Risk: Intermediate Anesthetic Plan Anesthetic Plan: GA Disposition: Standard PACU
[2022-05-08] MEDS: Lactated Ringers 1,000 ML 50 ML IVCONT (07:12)
--- NOTE | 2022-05-08 09:04 | MHC.SHP ---
Pre-Procedural Eval Section A Date of Service: 05/08/22 The patient is an INPATIENT: Yes Changes since office visit: Yes Patient answered all questions; No Cold of Flu in the past 2 weeks, No New Medical Problems and No Changes in Medication The History & Physical has been completed within 30 days and I have reviewed it.: Yes Section B Chief Complaint: MDD Recurrent Episode Severe PTSD Allergies: Allergies Allergy/AdvReac Type Severity Reaction Status Date / Time levofloxacin [From Levaquin] Allergy Rash Verified 05/08/22 07:07 Penicillins Allergy Rash Verified 05/08/22 07:07 Plan I have reviewed the history and physical and performed a pertinent physical examination on my patient. No changes have occurred unless specified. Time Spent With Patient Time: Total time managing care of this patient today ____ minutes.
--- NOTE | 2022-05-08 09:08 | HO.ECTPROC ---
ECT Procedure Note Diagnosis/Treatment Date of Service: 05/08/22 Diagnosis: Major Depressive Disorder Previous ECT Date: 05/06/22 Current Treatment Number: 2 Treatment: Series Interval Clinical Notes: REMAINS SEVERELY DEPRESSED Time: Total time managing care of this patient today ____ minutes. ECT Settings Device: THYMATRON DGx Electrode Placement: Bitemporal Program/Pulse Width: 0.50 Energy Percent: 100 Seizure Duration By EEG (in seconds): 40 Medications Administration General Anesthetic: Etomidate (14) Muscle Relaxant: Succinylcholine (100) Ancillary Medications Anti-emetics: Zofran - Pre ECT Miscillaneous Medications: Midazolam Airway Management Airway Management: Bag Mask Ventilation Treatment Recommendations No Changes Recommended: No change Pt Tolerated Procedure w/o Issue: Yes
--- NOTE | 2022-05-08 09:50 | PC.NURSE ---
Patient wearing single wedding band when leaving pacu with SANDRA Reyna.
[2022-05-08] MEDS: Tamsulosin HCL 0.4 MG CAPSULE PO (10:17)
[2022-05-08] MEDS: Venlafaxine HCl ER 75 MG CAP.ER.24H PO (10:17)
[2022-05-08] MEDS: Vortioxetine Hydrobromide 10 MG TABLET PO (10:17)
[2022-05-08] MEDS: LORazepam 0.5 MG TABLET PO ×3 (10:18→19:59)
[2022-05-08] MEDS: Finasteride 5 MG TABLET PO (10:18)
[2022-05-08] MEDS: Melatonin 3 MG TABLET 6 MG PO (19:58)
[2022-05-08] MEDS: Lithium Carbonate ER 300 MG TABLET.ER 600 MG PO (19:59)
[2022-05-08] MEDS: cloZAPine 100 MG TABLET 200 MG PO (19:59)
[2022-05-08] MEDS: Mirtazapine 30 MG TABLET PO (19:59)
[2022-05-08] MEDS: Atorvastatin Calcium 20 MG TABLET PO (19:59)
--- NOTE | 2022-05-09 00:14 | HO.PSYCHPN ---
Subjective Subjective Date of Service: 05/08/22 Reason For Visit: MDD Recurrent Episode Severe PTSD Subjective Notes: Conditional Voluntary Healthcare Proxy: Yes (Not invoked) Interim History: See ECT note for full information. The patient is quite hopeless depressed demoralized that he feels like he is losing his life with most likely his marriage ending. He does see states feel connected to his children and grandchildren that has some protective affect. He denies demonic control or other supernatural forces that are telling him to harm himself. Medication Compliance: Yes Review of Systems Acute medical concerns: No Mental Status Exam Mental Status Exam Patient Appearance: Well Grooomed and Appropriate Patient Orientation: Person and Situation Level of Consciousness: Awake and Appropriate Patient Behavior: Guarded and Passive Mood Description: Withdrawn and Blunted Affect Description: Constricted Patient Cognition Impaired: Yes Ability to Follow Directions: Good Speech Pattern: Clear Hallucinations: None Delusions: Not Present Thought Process: Distracted and Slowed Thinking Thought Content: positive for [place], positive for Perseveration and positive for Poverty of Content Judgement: Fair Diagnostics Vital Signs (24Hr): Vital Signs - 24 hr 05/08/22 07:08 05/08/22 09:06 05/08/22 09:11 Temperature 97.1 F 99.6 F Pulse Rate 68 93 81 Respiratory Rate 16 17 17 Blood Pressure 153/90 H 188/96 H 173/105 H Pulse Oximetry 97 98 97 Oxygen Delivery Method Room Air Blow By Blow By Oxygen Flow Rate 10 10 05/08/22 09:16 05/08/22 09:36 05/08/22 09:21 Temperature 98.6 F Pulse Rate 75 77 77 Respiratory Rate 16 16 16 Blood Pressure 164/93 H 146/92 H 167/92 H Pulse Oximetry 97 98 97 Oxygen Delivery Method Blow By Room Air Nasal Cannula Oxygen Flow Rate 10 2 05/08/22 07:30 05/08/22 18:00 Temperature 97.2 F 98.2 F Pulse Rate 83 93 Respiratory Rate 15 18 Blood Pressure 160/90 H 132/77 Pulse Oximetry 98 93 Oxygen Delivery Method Room Air Room Air Oxygen Flow Rate BMI result Body Mass Index 27.8 Labs 05/05/22 07:54 05/05/22 07:54 Imaging Radiology Impressions: ITS Impressions Brain MRI 04/24/22 09:39 IMPRESSION: - No acute intracranial findings. No acute infarcts. - There is global cerebral volume loss and there is mild chronic microangiopathy. Medications Medications Current Medications Acetaminophen (Acetaminophen 325 Mg Tablet) 650 mg PO Q6H PRN PRN Reason: Headache/Pain Mild Scale (1-3) Last Admin: 04/26/22 06:02 Dose: 650 mg Al Hydroxide/Mg Hydroxide (Magnesium Hydrox/Alum Hydrox 30 Ml Oral.Susp) 30 ml PO Q6H PRN PRN Reason: Heartburn/Nausea Atorvastatin Calcium (Atorvastatin Calcium 20 Mg Tablet) 20 mg PO BEDTIME DIANNE Last Admin: 05/08/22 19:59 Dose: 20 mg Clozapine (Clozapine 100 Mg Tablet) 200 mg PO BEDTIME [facility] Last Admin: 05/08/22 19:59 Dose: 200 mg Finasteride (Finasteride 5 Mg Tablet) 5 mg PO DAILY [facility] Last Admin: 05/08/22 10:18 Dose: 5 mg [place] Carbonate ([place] Carbonate Er 300 Mg Tablet.Er) 600 mg PO BEDTIME [facility]AN[facility] Last Admin: 05/08/22 19:59 Dose: 600 mg Lorazepam (Lorazepam 0.5 Mg Tablet) 0.5 mg PO TID DIANNE Last Admin: 05/08/22 19:59 Dose: 0.5 mg Lorazepam (Lorazepam 1 Mg Tablet) 1 mg PO Q4H PRN PRN Reason: Anxiety Last Admin: 05/06/22 09:29 Dose: 1 mg Magnesium Hydroxide (Milk Of Magnesia 30 Ml Oral.Susp) 30 ml PO DAILY PRN PRN Reason: Constipation Melatonin (Melatonin 3 Mg Tablet) 6 mg PO BEDTIME [facility] Last Admin: 05/08/22 19:58 Dose: 6 mg Mirtazapine (Mirtazapine 30 Mg Tablet) 30 mg PO BEDTIME [facility] Last Admin: 05/08/22 19:59 Dose: 30 mg Senna (Sennosides 8.6 Mg Tablet) 17.2 mg PO BEDTIME PRN PRN Reason: constipation Tamsulosin HCl (Tamsulosin Hcl 0.4 Mg Capsule) 0.4 mg PO DAILY [facility] Last Admin: 05/08/22 10:17 Dose: 0.4 mg Trazodone HCl (Trazodone Hcl 50 Mg Tablet) 50 mg PO BEDTIME MRX1 PRN PRN Reason: Insomnia Last Admin: 04/12/22 20:31 Dose: 50 mg Venlafaxine HCl (Venlafaxine Hcl Er 75 Mg Cap.Er.24h) 75 mg PO DAILY [facility] Last Admin: 05/08/22 10:17 Dose: 75 mg Vortioxetine (Vortioxetine Hydrobromide 10 Mg Tablet) 10 mg PO DAILY [facility] Last Admin: 05/08/22 10:17 Dose: 10 mg Allergies Allergies Allergy/AdvReac Type Severity Reaction Status Date / Time levofloxacin [From Levaquin] Allergy Rash Verified 05/08/22 07:07 Penicillins Allergy Rash Verified 05/08/22 07:07 Assessment & Plan Assessment & Plan (1) Routine medical exam: Status: Acute Code(s): Z00.00 - Encounter for general adult medical examination without abnormal findings Plan 72-year-old male with history of anxiety/depression, glaucoma, hypercholesterolemia, hypertension recently treated for UTI admitted to [facility] psych with consult placed to Medicine for ECT evaluation. #MDD -Plan per psychiatry -Has undergone ect in past without adverse effect. At this time, there exists no medical contraindication for patient to receive ECT at this time Thank you for allowing me to participate in this consult. Signing off at this time. Please do not hesitate to call for further questions. Plan 1. Continue with same treatment. 2. ECT, 1st treatment on 05/0605/08/2022 Continue plan of care patient with bitemporal ECT case has been reviewed with Dr. Womack Please see ECT note monitor patient for suicidality Patient educated on: diagnosis Informed Consent: understands Reason for contiued inpatient stay Substantial Risk for: harm to self Time Spent With Patient Time: Total time managing care of this patient today ____ minutes.
[2022-05-09 07:30] VITALS: BP 139/70; PULSE 87; RESP 14; TEMP 36.5; O2SAT 96
[2022-05-09 08:18] LABS: Neut%MD 60.6 %; Neutrophils Absolute Auto 4.1 x10*3/uL (2.0-8.3); WBCANC 6.8 X10*3/uL
[2022-05-09] MEDS: Vortioxetine Hydrobromide 10 MG TABLET PO (08:59)
[2022-05-09] MEDS: Finasteride 5 MG TABLET PO (08:59)
[2022-05-09] MEDS: Venlafaxine HCl ER 75 MG CAP.ER.24H PO (08:59)
[2022-05-09] MEDS: LORazepam 0.5 MG TABLET PO ×3 (08:59→20:11)
[2022-05-09] MEDS: Tamsulosin HCL 0.4 MG CAPSULE PO (08:59)
[2022-05-09 18:00] VITALS: BP 116/69; PULSE 80; RESP 18; TEMP 36.2; O2SAT 98
--- NOTE | 2022-05-09 18:50 | HO.PSYCHPN ---
Subjective Subjective Date of Service: 05/09/22 Reason For Visit: MDD Recurrent Episode Severe PTSD Interim History: Patient says he slept better last night. Tolerated ECT. No complaints of confusion. No headaches. Hopeful about ECT being helpful. Denies SI/HI today. Review of Systems Review of Systems General: No fevers, malaise, unintentional weight loss HEENT: No blurred vision, diplopia. No sore throat, nasal congestion, rhinorrhea, sinus pain, ear pain Cardiovascular: No chest pain, palpitations, or leg edema Respiratory: No shortness of breath, wheezing, cough GI: No abdominal pain, nausea, vomiting, diarrhea, constipation, melena, hematochezia : No dysuria, hematuria, increased urinary frequency, decreased urinary output MSK: No myalgia, back pain Neuro: No headaches, weakness, paresthesias Skin: No rashes or lesions Yes all other systems are reviewed and are negative Mental Status Exam Mental Status Exam Narrative: In today's visit he is alert, pleasant and interactive. Moderate eye contact. Soft-spoken speech. Affect is appropriate and constricted. Moderate depression present. No signs of psychosis. No active suicidal ideations but continues to have some ideations, passively. No dangerous behaviors. Cognitively he has slow thought processes. Judgment is intact Patient Appearance: Well Grooomed and Appropriate Patient Orientation: Person and Situation Level of Consciousness: Awake and Appropriate Patient Behavior: Guarded and Passive Behavior Comments: Tense looking in appearance pacing anxious Mood Description: Withdrawn and Blunted Affect Description: Constricted Patient Cognition Impaired: Yes Ability to Follow Directions: Good Speech Pattern: Clear Memory Description: Intact Diagnostics Vital Signs (24Hr): Vital Signs - 24 hr 05/09/22 07:30 Temperature 97.7 F Pulse Rate 87 Respiratory Rate 14 Blood Pressure 139/70 Pulse Oximetry 96 Oxygen Delivery Method Room Air BMI result Body Mass Index 27.8 Labs 05/05/22 07:54 05/05/22 07:54 Labs: Laboratory Results - last 48 hr 05/09/22 08:11 Absolute Neuts (auto) 4.1 Imaging Radiology Impressions: ITS Impressions Brain MRI 04/24/22 09:39 IMPRESSION: - No acute intracranial findings. No acute infarcts. - There is global cerebral volume loss and there is mild chronic microangiopathy. Medications Medications Current Medications Acetaminophen (Acetaminophen 325 Mg Tablet) 650 mg PO Q6H PRN PRN Reason: Headache/Pain Mild Scale (1-3) Last Admin: 04/26/22 06:02 Dose: 650 mg Al Hydroxide/Mg Hydroxide (Magnesium Hydrox/Alum Hydrox 30 Ml Oral.Susp) 30 ml PO Q6H PRN PRN Reason: Heartburn/Nausea Atorvastatin Calcium (Atorvastatin Calcium 20 Mg Tablet) 20 mg PO BEDTIME [facility] Last Admin: 05/08/22 19:59 Dose: 20 mg Clozapine (Clozapine 100 Mg Tablet) 200 mg PO BEDTIME [facility] Last Admin: 05/08/22 19:59 Dose: 200 mg Finasteride (Finasteride 5 Mg Tablet) 5 mg PO DAILY [facility] Last Admin: 05/09/22 08:59 Dose: 5 mg [place] Carbonate ([place] Carbonate Er 300 Mg Tablet.Er) 600 mg PO BEDTIME [facility] Last Admin: 05/08/22 19:59 Dose: 600 mg Lorazepam (Lorazepam 0.5 Mg Tablet) 0.5 mg PO TID [facility] Last Admin: 05/09/22 14:50 Dose: 0.5 mg Lorazepam (Lorazepam 1 Mg Tablet) 1 mg PO Q4H PRN PRN Reason: Anxiety Last Admin: 05/06/22 09:29 Dose: 1 mg Magnesium Hydroxide (Milk Of Magnesia 30 Ml Oral.Susp) 30 ml PO DAILY PRN PRN Reason: Constipation Melatonin (Melatonin 3 Mg Tablet) 6 mg PO BEDTIME [facility] Last Admin: 05/08/22 19:58 Dose: 6 mg Mirtazapine (Mirtazapine 30 Mg Tablet) 30 mg PO BEDTIME [facility] Last Admin: 05/08/22 19:59 Dose: 30 mg Senna (Sennosides 8.6 Mg Tablet) 17.2 mg PO BEDTIME PRN PRN Reason: constipation Tamsulosin HCl (Tamsulosin Hcl 0.4 Mg Capsule) 0.4 mg PO DAILY [facility] Last Admin: 05/09/22 08:59 Dose: 0.4 mg Trazodone HCl (Trazodone Hcl 50 Mg Tablet) 50 mg PO BEDTIME MRX1 PRN PRN Reason: Insomnia Last Admin: 04/12/22 20:31 Dose: 50 mg Venlafaxine HCl (Venlafaxine Hcl Er 75 Mg Cap.Er.24h) 75 mg PO DAILY [facility] Last Admin: 05/09/22 08:59 Dose: 75 mg Vortioxetine (Vortioxetine Hydrobromide 10 Mg Tablet) 10 mg PO DAILY [facility] Last Admin: 05/09/22 08:59 Dose: 10 mg Allergies Allergies Allergy/AdvReac Type Severity Reaction Status Date / Time levofloxacin [From Levaquin] Allergy Rash Verified 05/08/22 07:07 Penicillins Allergy Rash Verified 05/08/22 07:07 Assessment & Plan Assessment & Plan (1) Routine medical exam: Status: Acute Code(s): Z00.00 - Encounter for general adult medical examination without abnormal findings Plan 72-year-old male with history of anxiety/depression, glaucoma, hypercholesterolemia, hypertension recently treated for UTI admitted to [facility] psych with consult placed to Medicine for ECT evaluation. #MDD -Plan per psychiatry -Has undergone ect in past without adverse effect. At this time, there exists no medical contraindication for patient to receive ECT at this time Thank you for allowing me to participate in this consult. Signing off at this time. Please do not hesitate to call for further questions. Plan 1. Continue with same treatment. 2. ECT, 1st treatment on 05/0605/08/2022 Continue plan of care patient with bitemporal ECT case has been reviewed with Dr. Womack Please see ECT note monitor patient for suicidality 05/09: Continue current tx plan, ECT #3 Wednesday. Reason for contiued inpatient stay Substantial Risk for: harm to self, inability to function and rapid decompensation Time Spent With Patient Time: Total time managing care of this patient today ____ minutes.
[2022-05-09] MEDS: cloZAPine 100 MG TABLET 200 MG PO (20:10)
[2022-05-09] MEDS: Melatonin 3 MG TABLET 6 MG PO (20:11)
[2022-05-09] MEDS: Lithium Carbonate ER 300 MG TABLET.ER 600 MG PO (20:11)
[2022-05-09] MEDS: Atorvastatin Calcium 20 MG TABLET PO (20:11)
[2022-05-09] MEDS: Mirtazapine 30 MG TABLET PO (20:11)
[2022-05-10 07:30] VITALS: BP 154/86; PULSE 79; RESP 18; TEMP 36.6; O2SAT 96
[2022-05-10] MEDS: Tamsulosin HCL 0.4 MG CAPSULE PO (08:23)
[2022-05-10] MEDS: Finasteride 5 MG TABLET PO (08:23)
[2022-05-10] MEDS: Venlafaxine HCl ER 75 MG CAP.ER.24H PO (08:23)
[2022-05-10] MEDS: Vortioxetine Hydrobromide 10 MG TABLET PO (08:23)
[2022-05-10] MEDS: LORazepam 0.5 MG TABLET PO (17:19)
[2022-05-10 18:00] VITALS: BP 126/79; PULSE 77; RESP 17; TEMP 36.3; O2SAT 96
--- NOTE | 2022-05-10 18:24 | HO.PSYCHPN ---
Subjective Subjective Date of Service: 05/10/22 Reason For Visit: MDD Recurrent Episode Severe PTSD Interim History: Patient says My dark thoughts have not been plaguing me... He reports he feels better today. Nursing report he was smiling. He was more conversant today. More hopeful and reports he feels better. he slept well last night. ECT tomorrow. No complaints of confusion. No headaches. Denies SI/HI today. Review of Systems Review of Systems General: No fevers, malaise, unintentional weight loss HEENT: No blurred vision, diplopia. No sore throat, nasal congestion, rhinorrhea, sinus pain, ear pain Cardiovascular: No chest pain, palpitations, or leg edema Respiratory: No shortness of breath, wheezing, cough GI: No abdominal pain, nausea, vomiting, diarrhea, constipation, melena, hematochezia : No dysuria, hematuria, increased urinary frequency, decreased urinary output MSK: No myalgia, back pain Neuro: No headaches, weakness, paresthesias Skin: No rashes or lesions Yes all other systems are reviewed and are negative Mental Status Exam Mental Status Exam Narrative: In today's visit he is alert, pleasant and interactive. Moderate eye contact. Soft-spoken speech. Affect is appropriate and constricted. Moderate depression present. No signs of psychosis. No active suicidal ideations but continues to have some ideations, passively. No dangerous behaviors. Cognitively he has slow thought processes. Judgment is intact Patient Appearance: Well Grooomed and Appropriate Patient Orientation: Person and Situation Level of Consciousness: Awake and Appropriate Patient Behavior: Guarded and Passive Behavior Comments: Tense looking in appearance pacing anxious Mood Description: Withdrawn and Blunted Affect Description: Constricted Patient Cognition Impaired: Yes Ability to Follow Directions: Good Speech Pattern: Clear Memory Description: Intact Diagnostics Vital Signs (24Hr): Vital Signs - 24 hr 05/10/22 07:30 Temperature 97.8 F Pulse Rate 79 Respiratory Rate 18 Blood Pressure 154/86 H Pulse Oximetry 96 Oxygen Delivery Method Room Air BMI result Body Mass Index 27.8 Labs 05/05/22 07:54 05/05/22 07:54 Labs: Laboratory Results - last 48 hr 05/09/22 08:11 Absolute Neuts (auto) 4.1 Imaging Radiology Impressions: ITS Impressions Brain MRI 04/24/22 09:39 IMPRESSION: - No acute intracranial findings. No acute infarcts. - There is global cerebral volume loss and there is mild chronic microangiopathy. Medications Medications Current Medications Acetaminophen (Acetaminophen 325 Mg Tablet) 650 mg PO Q6H PRN PRN Reason: Headache/Pain Mild Scale (1-3) Last Admin: 04/26/22 06:02 Dose: 650 mg Al Hydroxide/Mg Hydroxide (Magnesium Hydrox/Alum Hydrox 30 Ml Oral.Susp) 30 ml PO Q6H PRN PRN Reason: Heartburn/Nausea Atorvastatin Calcium (Atorvastatin Calcium 20 Mg Tablet) 20 mg PO BEDTIME [facility] Last Admin: 05/09/22 20:11 Dose: 20 mg Clozapine (Clozapine 100 Mg Tablet) 200 mg PO BEDTIME [facility] Last Admin: 05/09/22 20:10 Dose: 200 mg Finasteride (Finasteride 5 Mg Tablet) 5 mg PO DAILY [facility] Last Admin: 05/10/22 08:23 Dose: 5 mg [place] Carbonate ([place] Carbonate Er 300 Mg Tablet.Er) 600 mg PO BEDTIME [facility] Last Admin: 05/09/22 20:11 Dose: 600 mg Lorazepam (Lorazepam 0.5 Mg Tablet) 0.5 mg PO TID [facility] Last Admin: 05/10/22 17:19 Dose: 0.5 mg Lorazepam (Lorazepam 1 Mg Tablet) 1 mg PO Q4H PRN PRN Reason: anxiety, agitation Magnesium Hydroxide (Milk Of Magnesia 30 Ml Oral.Susp) 30 ml PO DAILY PRN PRN Reason: Constipation Melatonin (Melatonin 3 Mg Tablet) 6 mg PO BEDTIME [facility] Last Admin: 05/09/22 20:11 Dose: 6 mg Mirtazapine (Mirtazapine 30 Mg Tablet) 30 mg PO BEDTIME [facility] Last Admin: 05/09/22 20:11 Dose: 30 mg Senna (Sennosides 8.6 Mg Tablet) 17.2 mg PO BEDTIME PRN PRN Reason: constipation Tamsulosin HCl (Tamsulosin Hcl 0.4 Mg Capsule) 0.4 mg PO DAILY [facility] Last Admin: 05/10/22 08:23 Dose: 0.4 mg Trazodone HCl (Trazodone Hcl 50 Mg Tablet) 50 mg PO BEDTIME MRX1 PRN PRN Reason: Insomnia Last Admin: 04/12/22 20:31 Dose: 50 mg Venlafaxine HCl (Venlafaxine Hcl Er 75 Mg Cap.Er.24h) 75 mg PO DAILY [facility] Last Admin: 05/10/22 08:23 Dose: 75 mg Vortioxetine (Vortioxetine Hydrobromide 10 Mg Tablet) 10 mg PO DAILY [facility] Last Admin: 05/10/22 08:23 Dose: 10 mg Allergies Allergies Allergy/AdvReac Type Severity Reaction Status Date / Time levofloxacin [From Levaquin] Allergy Rash Verified 05/08/22 07:07 Penicillins Allergy Rash Verified 05/08/22 07:07 Assessment & Plan Assessment & Plan (1) Routine medical exam: Status: Acute Code(s): Z00.00 - Encounter for general adult medical examination without abnormal findings Plan 72-year-old male with history of anxiety/depression, glaucoma, hypercholesterolemia, hypertension recently treated for UTI admitted to [facility] psych with consult placed to Medicine for ECT evaluation. #MDD -Plan per psychiatry -Has undergone ect in past without adverse effect. At this time, there exists no medical contraindication for patient to receive ECT at this time Thank you for allowing me to participate in this consult. Signing off at this time. Please do not hesitate to call for further questions. Plan 1. Continue with same treatment. 2. ECT, 1st treatment on 05/0605/08/2022 Continue plan of care patient with bitemporal ECT case has been reviewed with Dr. Womack Please see ECT note monitor patient for suicidality 05/09: Continue current tx plan, ECT #3 Wednesday. 05/10: Continue current tx plan, ECT #3 Wednesday. Reason for contiued inpatient stay Substantial Risk for: harm to self, harm to others and rapid decompensation Time Spent With Patient Time: Total time managing care of this patient today ____ minutes.
[2022-05-10] MEDS: Melatonin 3 MG TABLET 6 MG PO (20:30)
[2022-05-10] MEDS: Mirtazapine 30 MG TABLET PO (20:30)
[2022-05-10] MEDS: Atorvastatin Calcium 20 MG TABLET PO (20:30)
[2022-05-10] MEDS: Lithium Carbonate ER 300 MG TABLET.ER 600 MG PO (20:30)
[2022-05-10] MEDS: cloZAPine 100 MG TABLET 200 MG PO (20:30)
[2022-05-11] VITALS (8 sets, daily range): BP systolic 129–184; BP diastolic 60–98; PULSE 60–92; RESP 15–25; TEMP 36.6–37.7; O2SAT 93–99
--- NOTE | 2022-05-11 07:41 | MHC.SHP ---
Pre-Procedural Eval Section A Date of Service: 05/11/22 The patient is an INPATIENT: Yes Changes since office visit: No Cold of Flu in the past 2 weeks, No New Medical Problems, No Changes in Medication and No Patient answered all questions The History & Physical has been completed within 30 days and I have reviewed it.: Yes Section B Chief Complaint: MDD Recurrent Episode Severe PTSD Allergies: Allergies Allergy/AdvReac Type Severity Reaction Status Date / Time levofloxacin [From Levaquin] Allergy Rash Verified 05/08/22 07:07 Penicillins Allergy Rash Verified 05/08/22 07:07 Plan I have reviewed the history and physical and performed a pertinent physical examination on my patient. No changes have occurred unless specified. Time Spent With Patient Time: Total time managing care of this patient today ____ minutes.
--- NOTE | 2022-05-11 07:41 | HO.ECTPROC ---
ECT Procedure Note Diagnosis/Treatment Date of Service: 05/11/22 Diagnosis: Schizoaffective Disorder Previous ECT Date: 05/08/22 Current Treatment Number: 3 Treatment: Series Interval Clinical Notes: The patient reports dysphoria, depressed since his marriage is finishing. No side effects with ECT. Time: Total time managing care of this patient today _30___ minutes. ECT Settings Device: THYMATRON DGx Electrode Placement: Bitemporal Program/Pulse Width: 0.50 Energy Percent: 100 Seizure Duration By EEG (in seconds): 0 (EEG showed seizure activity until 45 s) By Motor Observation (in seconds): 22 Medications Administration General Anesthetic: Etomidate (14) Muscle Relaxant: Succinylcholine (100) Ancillary Medications Analgesics: Torodol - Pre ECT Anti-emetics: Zofran - Pre ECT Airway Management Airway Management: Bag Mask Ventilation Treatment Recommendations No Changes Recommended: No change Pt Tolerated Procedure w/o Issue: Yes
[2022-05-11] MEDS: Venlafaxine HCl ER 75 MG CAP.ER.24H PO (09:08)
[2022-05-11] MEDS: Finasteride 5 MG TABLET PO (09:08)
[2022-05-11] MEDS: Vortioxetine Hydrobromide 10 MG TABLET PO (09:08)
[2022-05-11] MEDS: LORazepam 0.5 MG TABLET PO ×3 (09:08→20:50)
[2022-05-11] MEDS: Tamsulosin HCL 0.4 MG CAPSULE PO (09:08)
--- NOTE | 2022-05-11 13:40 | HO.PSYCHPN ---
Subjective Subjective Date of Service: 05/11/22 Reason For Visit: MDD Recurrent Episode Severe PTSD Subjective Notes: Conditional Voluntary Interim History: The nursing staff reported that his affect has improved slightly, with some future oriented statements that he verbalized to the staff. Today we had ECT without any inmediate side effects, reports feeling a little tired after the procedure. Later on, he reported severe memory loss and he couldn't remember anything before and after the procedure. We will go back to right unilateral ECT. Mental Status Exam Mental Status Exam Patient Appearance: Well Grooomed and Appropriate Patient Orientation: Person and Situation Level of Consciousness: Awake and Appropriate Patient Behavior: Guarded and Passive Mood Description: Withdrawn Affect Description: Constricted Patient Cognition Impaired: Yes Ability to Follow Directions: Good Speech Pattern: Clear Hallucinations: None Delusions: Not Present Thought Process: Distracted and Evasive Thought Content: positive for [place] and positive for Circumstantial Judgement: Fair Diagnostics Vital Signs (24Hr): Vital Signs - 24 hr 05/10/22 18:00 05/11/22 05:50 05/11/22 06:42 Temperature 97.4 F 97.9 F 98 F Pulse Rate 77 77 75 Respiratory Rate 17 15 18 Blood Pressure 126/79 129/78 134/85 Pulse Oximetry 96 96 94 Oxygen Delivery Method Room Air Room Air Oxygen Flow Rate 05/11/22 08:01 05/11/22 08:06 05/11/22 08:11 Temperature 100 F Pulse Rate 92 85 85 Respiratory Rate 16 22 H 19 Blood Pressure 184/98 H 155/95 H 159/93 H Pulse Oximetry 99 96 96 Oxygen Delivery Method Nasal Cannula Nasal Cannula Room Air Oxygen Flow Rate 2 4 05/11/22 08:16 05/11/22 09:56 Temperature 98 F 98.2 F Pulse Rate 86 60 Respiratory Rate 25 H 16 Blood Pressure 152/93 H 130/81 Pulse Oximetry 96 93 Oxygen Delivery Method Room Air Room Air Oxygen Flow Rate BMI result Body Mass Index 27.8 Labs 05/05/22 07:54 05/05/22 07:54 Imaging Radiology Impressions: ITS Impressions Brain MRI 04/24/22 09:39 IMPRESSION: - No acute intracranial findings. No acute infarcts. - There is global cerebral volume loss and there is mild chronic microangiopathy. Medications Medications Current Medications Acetaminophen (Acetaminophen 325 Mg Tablet) 650 mg PO Q6H PRN PRN Reason: Headache/Pain Mild Scale (1-3) Last Admin: 04/26/22 06:02 Dose: 650 mg Al Hydroxide/Mg Hydroxide (Magnesium Hydrox/Alum Hydrox 30 Ml Oral.Susp) 30 ml PO Q6H PRN PRN Reason: Heartburn/Nausea Atorvastatin Calcium (Atorvastatin Calcium 20 Mg Tablet) 20 mg PO BEDTIME [facility] BEDS AT [facility] Last Admin: 05/10/22 20:30 Dose: 20 mg Clozapine (Clozapine 100 Mg Tablet) 200 mg PO BEDTIME [facility] 234 B[facility]S [facility] Last Admin: 05/10/22 20:30 Dose: 200 mg Finasteride (Finasteride 5 Mg Tablet) 5 mg PO DAILY [facility] 234 BEDS [facility] Last Admin: 05/11/22 09:08 Dose: 5 mg [place] Carbonate ([place] Carbonate Er 300 Mg Tablet.Er) 600 mg PO BEDTIME [facility] 234 BEDS AT [facility] Last Admin: 05/10/22 20:30 Dose: 600 mg Lorazepam (Lorazepam 0.5 Mg Tablet) 0.5 mg PO TID [facility] 234 BEDS AT [facility] Last Admin: 05/11/22 09:08 Dose: 0.5 mg Lorazepam (Lorazepam 1 Mg Tablet) 1 mg PO Q4H PRN PRN Reason: anxiety, agitation Magnesium Hydroxide (Milk Of Magnesia 30 Ml Oral.Susp) 30 ml PO DAILY PRN PRN Reason: Constipation Melatonin (Melatonin 3 Mg Tablet) 6 mg PO BEDTIME [facility] 234 BEDS [facility] Last Admin: 05/10/22 20:30 Dose: 6 mg Mirtazapine (Mirtazapine 30 Mg Tablet) 30 mg PO BEDTIME [facility] 234 [facility]S [facility] Last Admin: 05/10/22 20:30 Dose: 30 mg Senna (Sennosides 8.6 Mg Tablet) 17.2 mg PO BEDTIME PRN PRN Reason: constipation Tamsulosin HCl (Tamsulosin Hcl 0.4 Mg Capsule) 0.4 mg PO DAILY [facility] 234 BEDS [facility] Last Admin: 05/11/22 09:08 Dose: 0.4 mg Trazodone HCl (Trazodone Hcl 50 Mg Tablet) 50 mg PO BEDTIME MRX1 PRN PRN Reason: Insomnia Last Admin: 04/12/22 20:31 Dose: 50 mg Venlafaxine HCl (Venlafaxine Hcl Er 75 Mg Cap.Er.24h) 75 mg PO DAILY [facility] 234 BEDS [facility] Last Admin: 05/11/22 09:08 Dose: 75 mg Vortioxetine (Vortioxetine Hydrobromide 10 Mg Tablet) 10 mg PO DAILY [facility] 234 BEDS [facility] Last Admin: 05/11/22 09:08 Dose: 10 mg Allergies Allergies Allergy/AdvReac Type Severity Reaction Status Date / Time levofloxacin [From Levaquin] Allergy Rash Verified 05/08/22 07:07 Penicillins Allergy Rash Verified 05/08/22 07:07 Assessment & Plan Assessment & Plan (1) Routine medical exam: Status: Acute Code(s): Z00.00 - Encounter for general adult medical examination without abnormal findings Plan 72-year-old male with history of anxiety/depression, glaucoma, hypercholesterolemia, hypertension recently treated for UTI admitted to [facility] psych with consult placed to Medicine for ECT evaluation. #MDD -Plan per psychiatry -Has undergone ect in past without adverse effect. At this time, there exists no medical contraindication for patient to receive ECT at this time Thank you for allowing me to participate in this consult. Signing off at this time. Please do not hesitate to call for further questions. Plan 1. Continue with same treatment. 2. Continue ECT. 3. Reassessment with results. Reason for contiued inpatient stay Substantial Risk for: inability to function, rapid decompensation and med/psych decompensation Time Spent With Patient Time: Total time managing care of this patient today ____ minutes.
[2022-05-11] MEDS: Atorvastatin Calcium 20 MG TABLET PO (20:50)
[2022-05-11] MEDS: Mirtazapine 30 MG TABLET PO (20:50)
[2022-05-11] MEDS: cloZAPine 100 MG TABLET 200 MG PO (20:50)
[2022-05-11] MEDS: Lithium Carbonate ER 300 MG TABLET.ER 600 MG PO (20:50)
[2022-05-11] MEDS: Melatonin 3 MG TABLET 6 MG PO (20:50)
[2022-05-12 08:00] VITALS: BP 136/66; PULSE 78; RESP 18; TEMP 36.2; O2SAT 94
[2022-05-12] MEDS: Vortioxetine Hydrobromide 10 MG TABLET PO (09:15)
[2022-05-12] MEDS: LORazepam 0.5 MG TABLET PO ×3 (09:15→20:39)
[2022-05-12] MEDS: Venlafaxine HCl ER 75 MG CAP.ER.24H PO (09:15)
[2022-05-12] MEDS: Tamsulosin HCL 0.4 MG CAPSULE PO (09:15)
[2022-05-12] MEDS: Finasteride 5 MG TABLET PO (09:16)
--- NOTE | 2022-05-12 15:50 | P.PNPSI_ITS ---
Subjective Subjective Date of Service: 05/12/22 Reason For Visit: MDD Recurrent Episode Severe PTSD Subjective Notes: Conditional Voluntary Interim History: The nursing staff reported that he had been very confused after ECT yesterday when we change the technique. He has been anxious and depressed. He slept 7 hours. The occupational therapist that he has court 3.8 on the [employer] test. On interview the patient reports anxiety and depression but able to contract for safety in the facility. He acknowledged that he was worse yesterday after ECT with bilateral temp. Mental Status Exam Mental Status Exam Patient Appearance: Appropriate Patient Orientation: Person and Situation Level of Consciousness: Awake and Appropriate Patient Behavior: Guarded and Passive Mood Description: Withdrawn and Constricted Affect Description: Depressed Patient Cognition Impaired: Yes Ability to Follow Directions: Good Speech Pattern: Clear Hallucinations: None Delusions: Not Present Thought Process: Distracted and Slowed Thinking Thought Content: positive for [place] and positive for Circumstantial Judgement: Fair Diagnostics Vital Signs (24Hr): Vital Signs - 24 hr 05/11/22 18:00 05/12/22 08:00 Temperature 97.9 F 97.2 F Pulse Rate 83 78 Respiratory Rate 18 18 Blood Pressure 132/60 136/66 Pulse Oximetry 96 94 Oxygen Delivery Method Room Air Room Air BMI result Body Mass Index 27.8 Labs 05/05/22 07:54 05/05/22 07:54 Imaging Radiology Impressions: ITS Impressions Brain MRI 04/24/22 09:39 IMPRESSION: - No acute intracranial findings. No acute infarcts. - There is global cerebral volume loss and there is mild chronic microangiopathy. Medications Medications Current Medications Acetaminophen (Acetaminophen 325 Mg Tablet) 650 mg PO Q6H PRN PRN Reason: Headache/Pain Mild Scale (1-3) Last Admin: 04/26/22 06:02 Dose: 650 mg Al Hydroxide/Mg Hydroxide (Magnesium Hydrox/Alum Hydrox 30 Ml Oral.Susp) 30 ml PO Q6H PRN PRN Reason: Heartburn/Nausea Atorvastatin Calcium (Atorvastatin Calcium 20 Mg Tablet) 20 mg PO BEDTIME [facility] Last Admin: 05/11/22 20:50 Dose: 20 mg Clozapine (Clozapine 100 Mg Tablet) 200 mg PO BEDTIME [facility] Last Admin: 05/11/22 20:50 Dose: 200 mg Finasteride (Finasteride 5 Mg Tablet) 5 mg PO DAILY [facility] Last Admin: 05/12/22 09:16 Dose: 5 mg [place] Carbonate ([place] Carbonate Er 300 Mg Tablet.Er) 600 mg PO BEDTIME [facility] Last Admin: 05/11/22 20:50 Dose: 600 mg Lorazepam (Lorazepam 0.5 Mg Tablet) 0.5 mg PO TID [facility] Last Admin: 05/12/22 14:40 Dose: 0.5 mg Lorazepam (Lorazepam 1 Mg Tablet) 1 mg PO Q4H PRN PRN Reason: anxiety, agitation Magnesium Hydroxide (Milk Of Magnesia 30 Ml Oral.Susp) 30 ml PO DAILY PRN PRN Reason: Constipation Melatonin (Melatonin 3 Mg Tablet) 6 mg PO BEDTIME [facility] Last Admin: 05/11/22 20:50 Dose: 6 mg Mirtazapine (Mirtazapine 30 Mg Tablet) 30 mg PO BEDTIME [facility] Last Admin: 05/11/22 20:50 Dose: 30 mg Senna (Sennosides 8.6 Mg Tablet) 17.2 mg PO BEDTIME PRN PRN Reason: constipation Tamsulosin HCl (Tamsulosin Hcl 0.4 Mg Capsule) 0.4 mg PO DAILY [facility] Last Admin: 05/12/22 09:15 Dose: 0.4 mg Trazodone HCl (Trazodone Hcl 50 Mg Tablet) 50 mg PO BEDTIME MRX1 PRN PRN Reason: Insomnia Last Admin: 04/12/22 20:31 Dose: 50 mg Venlafaxine HCl (Venlafaxine Hcl Er 75 Mg Cap.Er.24h) 75 mg PO DAILY [facility] Last Admin: 05/12/22 09:15 Dose: 75 mg Vortioxetine (Vortioxetine Hydrobromide 10 Mg Tablet) 10 mg PO DAILY [facility] Last Admin: 05/12/22 09:15 Dose: 10 mg Allergies Allergies Allergy/AdvReac Type Severity Reaction Status Date / Time levofloxacin [From Levaquin] Allergy Rash Verified 05/08/22 07:07 Penicillins Allergy Rash Verified 05/08/22 07:07 Assessment & Plan Assessment & Plan (1) Routine medical exam: Status: Acute Code(s): Z00.00 - Encounter for general adult medical examination without abnormal findings Plan 72-year-old male with history of anxiety/depression, glaucoma, hypercholesterolemia, hypertension recently treated for UTI admitted to [facility] psych with consult placed to Medicine for ECT evaluation. #MDD -Plan per psychiatry -Has undergone ect in past without adverse effect. At this time, there exists no medical contraindication for patient to receive ECT at this time Thank you for allowing me to participate in this consult. Signing off at this time. Please do not hesitate to call for further questions. Plan 1. Continue with same treatment. 2. Continue ECT with regular right unilateral. 3. Reassessment with results. Reason for contiued inpatient stay Substantial Risk for: inability to function, rapid decompensation and med/psych decompensation Time Spent With Patient Time: Total time managing care of this patient today _20___ minutes.
[2022-05-12 18:00] VITALS: BP 137/71; PULSE 75; RESP 16; TEMP 36.4; O2SAT 96
[2022-05-12] MEDS: cloZAPine 100 MG TABLET 200 MG PO (20:38)
[2022-05-12] MEDS: Melatonin 3 MG TABLET 6 MG PO (20:38)
[2022-05-12] MEDS: Mirtazapine 30 MG TABLET PO (20:38)
[2022-05-12] MEDS: Lithium Carbonate ER 300 MG TABLET.ER 600 MG PO (20:38)
[2022-05-12] MEDS: Atorvastatin Calcium 20 MG TABLET PO (20:38)
[2022-05-13] VITALS (8 sets, daily range): BP systolic 105–161; BP diastolic 72–93; PULSE 69–89; RESP 15–19; TEMP 36.4–36.9; O2SAT 96–100
--- NOTE | 2022-05-13 06:50 | HO.ANESPROP2 ---
FORMERLY [facility] Active Problems Active Problems: All Active Problems (Updated 05/05/22 @ 18:15 by GENE Carey) Routine medical exam (Acute) UTI (urinary tract infection) (Acute) Routine history and physical examination of adult (Acute) Major depressive disorder with psychotic features (Acute) Past Medical History Medical History Anxiety Depression Glaucoma Hypercholesteremia Hypertension Laceration of abdomen Laceration of chest Laceration of wrist UTI (urinary tract infection) Family History Family history of problems with anesthesia: No Surgical History Surgical History History of laparotomy History of Problems with Anesthesia: No Social History Social History Household Members: Spouse Housing: House Are you a primary direct support professional caregiver to a significant other at home: No Do you presently have visiting nurse or other home services: No Patient Tobacco Use Status: Former Tobacco user Quit Date: 03/2200 Tobacco use type: Cigarette and Cigar Smoked in Last 30 Days: No e-Cigarette/Vaping Use: Never Used Patient Interested in Nicotine Replacement: No Use of substances other than those prescribed or required for medical reasons: No Currently Displaying Signs/Symptoms of Drug Intoxication Withdrawal: No Any prior treatment program specific to substance use: No Are you DNR?: No Advance Directives: No Advance Directives Information Provided: No Suicidal Behavior: History of suicide attemps Current/Past Psychiatric Disorders: Alcohol abuse, Chronic mental illess and Mood disorder Phan Symptoms: Impulsivity Family History: Attempts Change in Treatment: Change in provider Access to Firearms: No Do you have thoughts of harming others: None Do you have a plan to hurt others: No Plan Do you have the means to hurt others: Yes (pervasive thoughts of using kitchen knife to harm/kill and self) Recently lost weight without trying: No Nutrition Risks: No Nutritional Risk service: No Sexual orientation: Straight/Heterosexual Gender identity: Male Meds Allergies Allergy/AdvReac Type Severity Reaction Status Date / Time levofloxacin [From Levaquin] Allergy Rash Verified 05/08/22 07:07 Penicillins Allergy Rash Verified 05/08/22 07:07 Active Medications: Current Medications Acetaminophen (Acetaminophen 325 Mg Tablet) 650 mg PO Q6H PRN PRN Reason: Headache/Pain Mild Scale (1-3) Last Admin: 04/26/22 06:02 Dose: 650 mg Al Hydroxide/Mg Hydroxide (Magnesium Hydrox/Alum Hydrox 30 Ml Oral.Susp) 30 ml PO Q6H PRN PRN Reason: Heartburn/Nausea Atorvastatin Calcium (Atorvastatin Calcium 20 Mg Tablet) 20 mg PO BEDTIME [facility] Last Admin: 05/12/22 20:38 Dose: 20 mg Clozapine (Clozapine 100 Mg Tablet) 200 mg PO BEDTIME [facility] Last Admin: 05/12/22 20:38 Dose: 200 mg Finasteride (Finasteride 5 Mg Tablet) 5 mg PO DAILY [facility] Last Admin: 05/12/22 09:16 Dose: 5 mg [place] Carbonate ([place] Carbonate Er 300 Mg Tablet.Er) 600 mg PO BEDTIME [facility] Last Admin: 05/12/22 20:38 Dose: 600 mg Lorazepam (Lorazepam 0.5 Mg Tablet) 0.5 mg PO TID [facility] Last Admin: 05/12/22 20:39 Dose: 0.5 mg Lorazepam (Lorazepam 1 Mg Tablet) 1 mg PO Q4H PRN PRN Reason: anxiety, agitation Magnesium Hydroxide (Milk Of Magnesia 30 Ml Oral.Susp) 30 ml PO DAILY PRN PRN Reason: Constipation Melatonin (Melatonin 3 Mg Tablet) 6 mg PO BEDTIME [facility] Last Admin: 05/12/22 20:38 Dose: 6 mg Mirtazapine (Mirtazapine 30 Mg Tablet) 30 mg PO BEDTIME [facility] Last Admin: 05/12/22 20:38 Dose: 30 mg Senna (Sennosides 8.6 Mg Tablet) 17.2 mg PO BEDTIME PRN PRN Reason: constipation Tamsulosin HCl (Tamsulosin Hcl 0.4 Mg Capsule) 0.4 mg PO DAILY [facility] Last Admin: 05/12/22 09:15 Dose: 0.4 mg Trazodone HCl (Trazodone Hcl 50 Mg Tablet) 50 mg PO BEDTIME MRX1 PRN PRN Reason: Insomnia Last Admin: 04/12/22 20:31 Dose: 50 mg Venlafaxine HCl (Venlafaxine Hcl Er 75 Mg Cap.Er.24h) 75 mg PO DAILY [facility] Last Admin: 05/12/22 09:15 Dose: 75 mg Vortioxetine (Vortioxetine Hydrobromide 10 Mg Tablet) 10 mg PO DAILY [facility] Last Admin: 05/12/22 09:15 Dose: 10 mg Home Medications Medication Instructions Recorded Confirmed Last Taken Type clozapine 50 mg tablet 1 tab PO BEDTIME 04/11/22 04/11/22 04/10/22 History finasteride 5 mg tablet 1 tab PO DAILY 04/11/22 04/11/22 Unknown History lithium carbonate 300 mg 1 tab PO BEDTIME 04/11/22 04/11/22 04/10/22 History tablet,extended release mirtazapine 30 mg tablet 1 tab PO BEDTIME 04/11/22 04/11/22 Unknown History tamsulosin 0.4 mg capsule 1 cap PO DAILY 04/11/22 04/11/22 Unknown History venlafaxine 75 mg capsule,extended 1 cap PO QAM 04/11/22 04/11/22 Unknown History release 24 hr Exam Exam Date and Time: May 13, 2022 0650 Height,Weight and Vital Signs: Height 5 ft 6 in Weight 78.2 kg Last Vital Signs Temp 98 F 05/13/22 06:40 Pulse 69 05/13/22 06:40 Resp 18 05/13/22 06:40 BP 156/83 H 05/13/22 06:40 Pulse Ox 98 05/13/22 06:40 O2 Del Method Room Air 05/13/22 06:40 O2 Flow Rate 4 05/11/22 08:06 Pertinent Lab Results Pertinent Lab Results: Laboratory Tests 04/11/22 04/11/22 04/11/22 08:42 20:09 20:09 WBC RBC Hgb Hct MCV MCH MCHC RDW Plt Count MPV Immature Gran % (Auto) Neut % (Auto) Lymph % (Auto) [place] % (Auto) Eos % (Auto) Baso % (Auto) Lymph # (Auto) [place] # (Auto) Eos # (Auto) Baso # (Auto) Abs Immat Gran (auto) Absolute Neuts (auto) 3.7 Absolute Nucleated RBC Nucleated RBC % (auto) Sodium 144 Potassium 4.4 Chloride 112 H Carbon Dioxide 25 Anion Gap 11 L BUN 11 Creatinine 1.06 Estim Creat Clear Calc 63.2 Estimated GFR > 60 Random Glucose 165 H Fasting Glucose Estimat Average Glucose 108 Hemoglobin A1c % 5.4 Calcium 8.7 Total Bilirubin 0.5 Direct Bilirubin 0.2 AST 13 ALT 17 Alkaline Phosphatase 79 Total Protein 5.3 L Albumin 3.4 L Triglycerides 122 Cholesterol 100 LDL Cholesterol, Calc 47 HDL Cholesterol 29 Vitamin B12 505 Folate 14.5 TSH 2.24 Urine Color Urine Appearance Urine pH Ur Specific [place] Urine Protein Urine Glucose (UA) Urine Ketones Urine Blood Urine Nitrite Ur Leukocyte Esterase Urine RBC Urine WBC Ur Squamous Epith Cells Urine Bacteria Hyaline Casts Clozapine Norclozapine [place] 04/11/22 04/16/22 04/16/22 20:09 08:12 08:12 WBC RBC Hgb Hct MCV MCH MCHC RDW Plt Count MPV Immature Gran % (Auto) Neut % (Auto) Lymph % (Auto) [place] % (Auto) Eos % (Auto) Baso % (Auto) Lymph # (Auto) [place] # (Auto) Eos # (Auto) Baso # (Auto) Abs Immat Gran (auto) Absolute Neuts (auto) Absolute Nucleated RBC Nucleated RBC % (auto) Sodium 142 Potassium 4.3 Chloride 109 H Carbon Dioxide 27 Anion Gap 10 L BUN 12 Creatinine 0.99 Estim Creat Clear Calc 67.7 Estimated GFR > 60 Random Glucose 151 H Fasting Glucose Estimat Average Glucose Hemoglobin A1c % Calcium 9.0 Total Bilirubin Direct Bilirubin AST ALT Alkaline Phosphatase Total Protein Albumin Triglycerides Cholesterol LDL Cholesterol, Calc HDL Cholesterol Vitamin B12 Folate TSH 3.41 Urine Color Urine Appearance Urine pH Ur Specific [place] Urine Protein Urine Glucose (UA) Urine Ketones Urine Blood Urine Nitrite Ur Leukocyte Esterase Urine RBC Urine WBC Ur Squamous Epith Cells Urine Bacteria Hyaline Casts Clozapine Norclozapine [place] 0.48 L 0.77 04/18/22 04/22/22 04/22/22 06:54 09:15 14:25 WBC RBC Hgb Hct MCV MCH MCHC RDW Plt Count MPV Immature Gran % (Auto) Neut % (Auto) Lymph % (Auto) [place] % (Auto) Eos % (Auto) Baso % (Auto) Lymph # (Auto) [place] # (Auto) Eos # (Auto) Baso # (Auto) Abs Immat Gran (auto) Absolute Neuts (auto) 4.8 Absolute Nucleated RBC Nucleated RBC % (auto) Sodium 142 Potassium 3.9 Chloride 110 H Carbon Dioxide 27 Anion Gap 9 L BUN 13 Creatinine 1.07 Estim Creat Clear Calc 62.6 Estimated GFR > 60 Random Glucose 190 H Fasting Glucose Estimat Average Glucose Hemoglobin A1c % Calcium 8.7 Total Bilirubin 0.6 Direct Bilirubin AST 16 ALT 29 Alkaline Phosphatase 72 Total Protein 5.2 L Albumin 3.5 Triglycerides Cholesterol LDL Cholesterol, Calc HDL Cholesterol Vitamin B12 Folate TSH Urine Color Yellow Urine Appearance Clear Urine pH 6.5 Ur Specific [place] <= 1.005 Urine Protein Negative Urine Glucose (UA) Negative Urine Ketones Negative Urine Blood Trace H Urine Nitrite Negative Ur Leukocyte Esterase Large (3+) H Urine RBC 0-2 Urine WBC >50 H Ur Squamous Epith Cells 0-2 Urine Bacteria None Seen Hyaline Casts 0-2 Clozapine Norclozapine [place] 04/25/22 04/30/22 04/30/22 03:33 07:45 07:45 WBC RBC Hgb Hct MCV MCH MCHC RDW Plt Count MPV Immature Gran % (Auto) Neut % (Auto) Lymph % (Auto) [place] % (Auto) Eos % (Auto) Baso % (Auto) Lymph # (Auto) [place] # (Auto) Eos # (Auto) Baso # (Auto) Abs Immat Gran (auto) Absolute Neuts (auto) 3.7 Absolute Nucleated RBC Nucleated RBC % (auto) Sodium Potassium Chloride Carbon Dioxide Anion Gap BUN Creatinine Estim Creat Clear Calc Estimated GFR Random Glucose Fasting Glucose Estimat Average Glucose 105 Hemoglobin A1c % 5.3 Calcium Total Bilirubin Direct Bilirubin AST ALT Alkaline Phosphatase Total Protein Albumin Triglycerides Cholesterol LDL Cholesterol, Calc HDL Cholesterol Vitamin B12 Folate TSH Urine Color Urine Appearance Urine pH Ur Specific [place] Urine Protein Urine Glucose (UA) Urine Ketones Urine Blood Urine Nitrite Ur Leukocyte Esterase Urine RBC Urine WBC Ur Squamous Epith Cells Urine Bacteria Hyaline Casts Clozapine 338 Norclozapine 216 [place] 05/01/22 05/01/22 05/02/22 07:07 07:07 06:07 WBC RBC Hgb Hct MCV MCH MCHC RDW Plt Count MPV Immature Gran % (Auto) Neut % (Auto) Lymph % (Auto) [place] % (Auto) Eos % (Auto) Baso % (Auto) Lymph # (Auto) [place] # (Auto) Eos # (Auto) Baso # (Auto) Abs Immat Gran (auto) Absolute Neuts (auto) 2.8 Absolute Nucleated RBC Nucleated RBC % (auto) Sodium 141 Potassium 4.4 Chloride 110 H Carbon Dioxide 27 Anion Gap 8 L BUN 15 Creatinine 0.98 Estim Creat Clear Calc 69.2 Estimated GFR > 60 Random Glucose 105 Fasting Glucose Estimat Average Glucose Hemoglobin A1c % Calcium 8.8 Total Bilirubin Direct Bilirubin AST ALT Alkaline Phosphatase Total Protein Albumin Triglycerides Cholesterol LDL Cholesterol, Calc HDL Cholesterol Vitamin B12 Folate TSH 3.76 Urine Color Urine Appearance Urine pH Ur Specific [place] Urine Protein Urine Glucose (UA) Urine Ketones Urine Blood Urine Nitrite Ur Leukocyte Esterase Urine RBC Urine WBC Ur Squamous Epith Cells Urine Bacteria Hyaline Casts Clozapine Norclozapine [place] 0.88 05/05/22 05/05/22 05/09/22 07:54 07:54 08:11 WBC 5.8 RBC 4.61 Hgb 13.7 L Hct 43.1 MCV 93.5 MCH 29.7 MCHC 31.8 RDW 12.8 Plt Count 207 MPV 9.0 L Immature Gran % (Auto) 0.3 Neut % (Auto) 55.4 Lymph % (Auto) 32.2 [place] % (Auto) 9.7 Eos % (Auto) 1.9 Baso % (Auto) 0.5 Lymph # (Auto) 1.9 [place] # (Auto) 0.6 Eos # (Auto) 0.1 Baso # (Auto) 0.0 Abs Immat Gran (auto) 0.02 Absolute Neuts (auto) 3.2 4.1 Absolute Nucleated RBC 0.000 Nucleated RBC % (auto) 0.0 Sodium 141 Potassium 4.3 Chloride 107 Carbon Dioxide 28 Anion Gap 10 L BUN 17 H Creatinine 1.03 Estim Creat Clear Calc 65.9 Estimated GFR > 60 Random Glucose Fasting Glucose 130 H Estimat Average Glucose Hemoglobin A1c % Calcium 9.0 Total Bilirubin 0.9 Direct Bilirubin AST 18 ALT 37 Alkaline Phosphatase 90 Total Protein 5.6 L Albumin 3.8 Triglycerides Cholesterol LDL Cholesterol, Calc HDL Cholesterol Vitamin B12 Folate TSH Urine Color Urine Appearance Urine pH Ur Specific [place] Urine Protein Urine Glucose (UA) Urine Ketones Urine Blood Urine Nitrite Ur Leukocyte Esterase Urine RBC Urine WBC Ur Squamous Epith Cells Urine Bacteria Hyaline Casts Clozapine Norclozapine [place] Airway Mallampati Class: II TM Dist: >3cm Neck ROM: Full Heart: rrr Lungs: cta Assessment and Plan Assessment Anesthesia Assessment: Anesthesia Plan Discussed and Chart Reviewed Final Anesthetic Review Family History of Problems with Anesthesia: No History of Problems with Anesthesia: No NPO: Yes ASA Class: III Final Preanesthetic Review: No Changes in Pt Med Stat, Meds/Allgs Chart Reviewed and Consent Obtained/Reviewed Patient Risk: Intermediate Procedure Risk: Intermediate Anesthetic Plan Anesthetic Plan: GA Disposition: Standard PACU
--- NOTE | 2022-05-13 08:11 | MHC.SHP ---
Pre-Procedural Eval Section A Date of Service: 05/13/22 The patient is an INPATIENT: Yes Changes since office visit: Yes Changes in Medication and Yes Patient answered all questions; No Cold of Flu in the past 2 weeks and No New Medical Problems The History & Physical has been completed within 30 days and I have reviewed it.: Yes Section B Chief Complaint: MDD Recurrent Episode Severe PTSD Allergies: Allergies Allergy/AdvReac Type Severity Reaction Status Date / Time levofloxacin [From Levaquin] Allergy Rash Verified 05/08/22 07:07 Penicillins Allergy Rash Verified 05/08/22 07:07 Plan I have reviewed the history and physical and performed a pertinent physical examination on my patient. No changes have occurred unless specified. Time Spent With Patient Time: Total time managing care of this patient today ____ minutes.
--- NOTE | 2022-05-13 08:12 | HO.ECTPROC ---
ECT Procedure Note Diagnosis/Treatment Date of Service: 05/13/22 Diagnosis: Schizoaffective Disorder Previous ECT Date: 05/11/22 Current Treatment Number: 4 Treatment: Series Interval Clinical Notes: The patient is delirious after last ECT bitemporal Dr. nicolas suggest change to right unilateral patient states he is feeling better denies active SI Time: Total time managing care of this patient today ____ minutes. ECT Settings Device: THYMATRON DGx Electrode Placement: Right Unilateral Program/Pulse Width: 0.50 Energy Percent: 100 Seizure Duration By EEG (in seconds): 41 (EEG showed seizure activity until 45 s) Medications Administration General Anesthetic: Etomidate (14) Muscle Relaxant: Succinylcholine (100) Ancillary Medications Analgesics: Torodol - Pre ECT Anti-emetics: Zofran - Pre ECT Cardiovascular Medications: Glycopyrrolate Airway Management Airway Management: Bag Mask Ventilation Treatment Recommendations No Changes Recommended: No change Pt Tolerated Procedure w/o Issue: Yes
[2022-05-13] MEDS: Vortioxetine Hydrobromide 10 MG TABLET PO (10:12)
[2022-05-13] MEDS: Finasteride 5 MG TABLET PO (10:13)
[2022-05-13] MEDS: LORazepam 0.5 MG TABLET PO ×3 (10:13→20:50)
[2022-05-13] MEDS: Venlafaxine HCl ER 75 MG CAP.ER.24H PO (10:13)
[2022-05-13] MEDS: Tamsulosin HCL 0.4 MG CAPSULE PO (10:13)
--- NOTE | 2022-05-13 13:39 | HO.PSYCHPN ---
Subjective Subjective Date of Service: 05/13/22 Reason For Visit: MDD Recurrent Episode Severe PTSD Subjective Notes: Conditional Voluntary Interim History: The nursing staff reported the patient went for ECT today in the morning and came back still did not slightly sedated. He had been isolative. Occupational therapy reported that he attended 1% of the groups and he shower. The social research assistant reported that the family wants a family meeting for next week. On interview the patient reports depression but not actively suicidal. No side effects with right unilateral ECT Mental Status Exam Mental Status Exam Patient Appearance: Well Grooomed and Appropriate Patient Orientation: Person and Situation Level of Consciousness: Awake and Appropriate Patient Behavior: Guarded and Passive Mood Description: Withdrawn Affect Description: Constricted Patient Cognition Impaired: Yes Ability to Follow Directions: Good Speech Pattern: Clear Hallucinations: None Delusions: Not Present Thought Process: Distracted Thought Content: positive for Felt and positive for Circumstantial Judgement: Fair Diagnostics Vital Signs (24Hr): Vital Signs - 24 hr 05/12/22 18:00 05/13/22 05:40 05/13/22 06:40 Temperature 97.5 F 97.5 F 98 F Pulse Rate 75 71 69 Respiratory Rate 16 16 18 Blood Pressure 137/71 127/72 156/83 H Pulse Oximetry 96 99 98 Oxygen Delivery Method Room Air Room Air Room Air Oxygen Flow Rate 05/13/22 08:33 05/13/22 08:38 05/13/22 08:43 Temperature 98.4 F Pulse Rate 86 89 83 Respiratory Rate 16 19 15 Blood Pressure 156/83 H 160/90 H 155/93 H Pulse Oximetry 100 100 99 Oxygen Delivery Method Nasal Cannula Nasal Cannula Room Air Oxygen Flow Rate 2 2 05/13/22 08:48 05/13/22 09:03 Temperature 98.4 F Pulse Rate 84 79 Respiratory Rate 15 15 Blood Pressure 161/82 H 105/85 Pulse Oximetry 98 98 Oxygen Delivery Method Room Air Room Air Oxygen Flow Rate BMI result Body Mass Index 27.8 Labs 05/05/22 07:54 05/05/22 07:54 Imaging Radiology Impressions: ITS Impressions Brain MRI 04/24/22 09:39 IMPRESSION: - No acute intracranial findings. No acute infarcts. - There is global cerebral volume loss and there is mild chronic microangiopathy. Medications Medications Current Medications Acetaminophen (Acetaminophen 325 Mg Tablet) 650 mg PO Q6H PRN PRN Reason: Headache/Pain Mild Scale (1-3) Last Admin: 04/26/22 06:02 Dose: 650 mg Al Hydroxide/Mg Hydroxide (Magnesium Hydrox/Alum Hydrox 30 Ml Oral.Susp) 30 ml PO Q6H PRN PRN Reason: Heartburn/Nausea Atorvastatin Calcium (Atorvastatin Calcium 20 Mg Tablet) 20 mg PO BEDTIME [facility] Last Admin: 05/12/22 20:38 Dose: 20 mg Clozapine (Clozapine 100 Mg Tablet) 200 mg PO BEDTIME [facility] Last Admin: 05/12/22 20:38 Dose: 200 mg Finasteride (Finasteride 5 Mg Tablet) 5 mg PO DAILY [facility] Last Admin: 05/13/22 10:13 Dose: 5 mg [place] Carbonate ([place] Carbonate Er 300 Mg Tablet.Er) 600 mg PO BEDTIME [facility] Last Admin: 05/12/22 20:38 Dose: 600 mg Lorazepam (Lorazepam 0.5 Mg Tablet) 0.5 mg PO TID [facility] Last Admin: 05/13/22 10:13 Dose: 0.5 mg Lorazepam (Lorazepam 1 Mg Tablet) 1 mg PO Q4H PRN PRN Reason: anxiety, agitation Magnesium Hydroxide (Milk Of Magnesia 30 Ml Oral.Susp) 30 ml PO DAILY PRN PRN Reason: Constipation Melatonin (Melatonin 3 Mg Tablet) 6 mg PO BEDTIME [facility] Last Admin: 05/12/22 20:38 Dose: 6 mg Mirtazapine (Mirtazapine 30 Mg Tablet) 30 mg PO BEDTIME [facility] Last Admin: 05/12/22 20:38 Dose: 30 mg Senna (Sennosides 8.6 Mg Tablet) 17.2 mg PO BEDTIME PRN PRN Reason: constipation Tamsulosin HCl (Tamsulosin Hcl 0.4 Mg Capsule) 0.4 mg PO DAILY [facility] Last Admin: 05/13/22 10:13 Dose: 0.4 mg Trazodone HCl (Trazodone Hcl 50 Mg Tablet) 50 mg PO BEDTIME MRX1 PRN PRN Reason: Insomnia Last Admin: 04/12/22 20:31 Dose: 50 mg Venlafaxine HCl (Venlafaxine Hcl Er 75 Mg Cap.Er.24h) 75 mg PO DAILY [facility] Last Admin: 05/13/22 10:13 Dose: 75 mg Vortioxetine (Vortioxetine Hydrobromide 10 Mg Tablet) 10 mg PO DAILY [facility] Last Admin: 05/13/22 10:12 Dose: 10 mg Allergies Allergies Allergy/AdvReac Type Severity Reaction Status Date / Time levofloxacin [From Levaquin] Allergy Rash Verified 05/08/22 07:07 Penicillins Allergy Rash Verified 05/08/22 07:07 Assessment & Plan Assessment & Plan (1) Routine medical exam: Status: Acute Code(s): Z00.00 - Encounter for general adult medical examination without abnormal findings Plan 72-year-old male with history of anxiety/depression, glaucoma, hypercholesterolemia, hypertension recently treated for UTI admitted to [facility] psych with consult placed to Medicine for ECT evaluation. #MDD -Plan per psychiatry -Has undergone ect in past without adverse effect. At this time, there exists no medical contraindication for patient to receive ECT at this time Thank you for allowing me to participate in this consult. Signing off at this time. Please do not hesitate to call for further questions. Plan 1. Continue with same treatment. 2. Continue ECT with regular right unilateral. 3. Reassessment with results. Reason for contiued inpatient stay Substantial Risk for: inability to function, rapid decompensation and med/psych decompensation Time Spent With Patient Time: Total time managing care of this patient today _20___ minutes.
[2022-05-13] MEDS: Atorvastatin Calcium 20 MG TABLET PO (20:50)
[2022-05-13] MEDS: cloZAPine 100 MG TABLET 200 MG PO (20:50)
[2022-05-13] MEDS: Melatonin 3 MG TABLET 6 MG PO (20:50)
[2022-05-13] MEDS: Lithium Carbonate ER 300 MG TABLET.ER 600 MG PO (20:50)
[2022-05-13] MEDS: Mirtazapine 30 MG TABLET PO (20:50)
[2022-05-14 07:00] VITALS: BMI 27.9
[2022-05-14] MEDS: Vortioxetine Hydrobromide 10 MG TABLET PO (09:03)
[2022-05-14] MEDS: Finasteride 5 MG TABLET PO (09:03)
[2022-05-14] MEDS: Tamsulosin HCL 0.4 MG CAPSULE PO (09:03)
[2022-05-14] MEDS: Venlafaxine HCl ER 75 MG CAP.ER.24H PO (09:04)
[2022-05-14] MEDS: LORazepam 0.5 MG TABLET PO ×2 (09:04→14:44)
[2022-05-14 09:39] VITALS: BP 139/65; PULSE 84; RESP 18; TEMP 36.2; O2SAT 95
--- NOTE | 2022-05-14 15:48 | HO.PSYCHPN ---
Subjective Subjective Date of Service: 05/14/22 Reason For Visit: MDD Recurrent Episode Severe PTSD Interim History: The nursing staff reported the patient is less confused after the last ECT. He denies anxiety and depression but he had been isolated. He slept 8 hours last night. The professor of social work reported that would have a family meeting next Wednesday at 15:00. On interview the patient denies new symptoms, cooperative and pleasant, minimizing his depression. Mental Status Exam Mental Status Exam Patient Appearance: Appropriate Patient Orientation: Person and Situation Level of Consciousness: Awake and Appropriate Patient Behavior: Guarded and Passive Mood Description: Withdrawn Affect Description: Constricted Patient Cognition Impaired: Yes Ability to Follow Directions: Good Speech Pattern: Clear Hallucinations: None Delusions: Not Present Thought Process: Distracted and Slowed Thinking Thought Content: positive for [place] and positive for Circumstantial Judgement: Fair Diagnostics Vital Signs (24Hr): Vital Signs - 24 hr 05/13/22 18:00 05/14/22 09:39 Temperature 97.5 F 97.2 F Pulse Rate 73 84 Respiratory Rate 18 18 Blood Pressure 146/82 H 139/65 Pulse Oximetry 96 95 Oxygen Delivery Method Room Air Room Air BMI result Body Mass Index 27.9 Labs 05/05/22 07:54 05/05/22 07:54 Imaging Radiology Impressions: ITS Impressions Brain MRI 04/24/22 09:39 IMPRESSION: - No acute intracranial findings. No acute infarcts. - There is global cerebral volume loss and there is mild chronic microangiopathy. Medications Medications Current Medications Acetaminophen (Acetaminophen 325 Mg Tablet) 650 mg PO Q6H PRN PRN Reason: Headache/Pain Mild Scale (1-3) Last Admin: 04/26/22 06:02 Dose: 650 mg Al Hydroxide/Mg Hydroxide (Magnesium Hydrox/Alum Hydrox 30 Ml Oral.Susp) 30 ml PO Q6H PRN PRN Reason: Heartburn/Nausea Atorvastatin Calcium (Atorvastatin Calcium 20 Mg Tablet) 20 mg PO BEDTIME DIANNE Last Admin: 05/13/22 20:50 Dose: 20 mg Clozapine (Clozapine 100 Mg Tablet) 200 mg PO BEDTIME DIANNE Last Admin: 05/13/22 20:50 Dose: 200 mg Finasteride (Finasteride 5 Mg Tablet) 5 mg PO DAILY DIANNE Last Admin: 05/14/22 09:03 Dose: 5 mg [place] Carbonate ([place] Carbonate Er 300 Mg Tablet.Er) 600 mg PO BEDTIME DIANNE Last Admin: 05/13/22 20:50 Dose: 600 mg Lorazepam (Lorazepam 0.5 Mg Tablet) 0.5 mg PO TID [facility] Last Admin: 05/14/22 14:44 Dose: 0.5 mg Lorazepam (Lorazepam 1 Mg Tablet) 1 mg PO Q4H PRN PRN Reason: anxiety, agitation Magnesium Hydroxide (Milk Of Magnesia 30 Ml Oral.Susp) 30 ml PO DAILY PRN PRN Reason: Constipation Melatonin (Melatonin 3 Mg Tablet) 6 mg PO BEDTIME [facility] Last Admin: 05/13/22 20:50 Dose: 6 mg Mirtazapine (Mirtazapine 30 Mg Tablet) 30 mg PO BEDTIME [facility] Last Admin: 05/13/22 20:50 Dose: 30 mg Senna (Sennosides 8.6 Mg Tablet) 17.2 mg PO BEDTIME PRN PRN Reason: constipation Tamsulosin HCl (Tamsulosin Hcl 0.4 Mg Capsule) 0.4 mg PO DAILY [facility] Last Admin: 05/14/22 09:03 Dose: 0.4 mg Trazodone HCl (Trazodone Hcl 50 Mg Tablet) 50 mg PO BEDTIME MRX1 PRN PRN Reason: Insomnia Last Admin: 04/12/22 20:31 Dose: 50 mg Venlafaxine HCl (Venlafaxine Hcl Er 75 Mg Cap.Er.24h) 75 mg PO DAILY [facility] Last Admin: 05/14/22 09:04 Dose: 75 mg Vortioxetine (Vortioxetine Hydrobromide 10 Mg Tablet) 10 mg PO DAILY [facility] Last Admin: 05/14/22 09:03 Dose: 10 mg Allergies Allergies Allergy/AdvReac Type Severity Reaction Status Date / Time levofloxacin [From Levaquin] Allergy Rash Verified 05/08/22 07:07 Penicillins Allergy Rash Verified 05/08/22 07:07 Assessment & Plan Assessment & Plan (1) Routine medical exam: Status: Acute Code(s): Z00.00 - Encounter for general adult medical examination without abnormal findings Plan 72-year-old male with history of anxiety/depression, glaucoma, hypercholesterolemia, hypertension recently treated for UTI admitted to [facility] psych with consult placed to Medicine for ECT evaluation. #MDD -Plan per psychiatry -Has undergone ect in past without adverse effect. At this time, there exists no medical contraindication for patient to receive ECT at this time Thank you for allowing me to participate in this consult. Signing off at this time. Please do not hesitate to call for further questions. Plan 1. Continue with same treatment. 2. Continue ECT with regular right unilateral. 3. Reassessment with results. Reason for contiued inpatient stay Substantial Risk for: inability to function, rapid decompensation and med/psych decompensation Time Spent With Patient Time: Total time managing care of this patient today _20___ minutes.
[2022-05-14 18:00] VITALS: BP 154/65; PULSE 84; RESP 16; O2SAT 93
[2022-05-14] MEDS: cloZAPine 100 MG TABLET 200 MG PO (20:23)
[2022-05-14] MEDS: Melatonin 3 MG TABLET 6 MG PO (20:23)
[2022-05-14] MEDS: Mirtazapine 30 MG TABLET PO (20:23)
[2022-05-14] MEDS: Lithium Carbonate ER 300 MG TABLET.ER 600 MG PO (20:23)
[2022-05-14] MEDS: Atorvastatin Calcium 20 MG TABLET PO (20:23)
[2022-05-15] VITALS (9 sets, daily range): BP systolic 121–181; BP diastolic 73–84; PULSE 71–84; RESP 14–18; TEMP 36.2–37.6; O2SAT 95–100
--- NOTE | 2022-05-15 08:13 | P.CONAN_ITS ---
[facility] Active Problems Active Problems: All Active Problems (Updated 05/05/22 @ 18:15 by GENE Carey) Routine medical exam (Acute) UTI (urinary tract infection) (Acute) Routine history and physical examination of adult (Acute) Major depressive disorder with psychotic features (Acute) Past Medical History Medical History Anxiety Depression Glaucoma Hypercholesteremia Hypertension Laceration of abdomen Laceration of chest Laceration of wrist UTI (urinary tract infection) Family History Family history of problems with anesthesia: No Surgical History Surgical History History of laparotomy History of Problems with Anesthesia: No Social History Social History Household Members: Spouse Housing: House Are you a primary transitional care liaison to a significant other at home: No Do you presently have visiting nurse or other home services: No Patient Tobacco Use Status: Former Tobacco user Quit Date: 03/2200 Tobacco use type: Cigarette and Cigar Smoked in Last 30 Days: No e-Cigarette/Vaping Use: Never Used Patient Interested in Nicotine Replacement: No Use of substances other than those prescribed or required for medical reasons: No Currently Displaying Signs/Symptoms of Drug Intoxication Withdrawal: No Any prior treatment program specific to substance use: No Are you DNR?: No Advance Directives: No Advance Directives Information Provided: No Suicidal Behavior: History of suicide attemps Current/Past Psychiatric Disorders: Alcohol abuse, Chronic mental illess and Mood disorder Phan Symptoms: Impulsivity Family History: Attempts Change in Treatment: Change in provider Access to Firearms: No Do you have thoughts of harming others: None Do you have a plan to hurt others: No Plan Do you have the means to hurt others: Yes (pervasive thoughts of using kitchen knife to harm/kill and self) Recently lost weight without trying: No Nutrition Risks: No Nutritional Risk service: No Sexual orientation: Straight/Heterosexual Gender identity: Male Meds Allergies Allergy/AdvReac Type Severity Reaction Status Date / Time levofloxacin [From Levaquin] Allergy Rash Verified 05/08/22 07:07 Penicillins Allergy Rash Verified 05/08/22 07:07 Active Medications: Current Medications Acetaminophen (Acetaminophen 325 Mg Tablet) 650 mg PO Q6H PRN PRN Reason: Headache/Pain Mild Scale (1-3) Last Admin: 04/26/22 06:02 Dose: 650 mg Al Hydroxide/Mg Hydroxide (Magnesium Hydrox/Alum Hydrox 30 Ml Oral.Susp) 30 ml PO Q6H PRN PRN Reason: Heartburn/Nausea Atorvastatin Calcium (Atorvastatin Calcium 20 Mg Tablet) 20 mg PO BEDTIME COUNT INCLUDES [facility] Last Admin: 05/14/22 20:23 Dose: 20 mg Clozapine (Clozapine 100 Mg Tablet) 200 mg PO BEDTIME DIANNE Last Admin: 05/14/22 20:23 Dose: 200 mg Finasteride (Finasteride 5 Mg Tablet) 5 mg PO DAILY COUNT INCLUDES [facility] Last Admin: 05/14/22 09:03 Dose: 5 mg Lactated Ringer's (Lr) 1,000 mls @ 50 mls/hr IVCONT .Q20H DIANNE Lactated Ringer's (Lr) 1,000 mls @ 50 mls/hr IVCONT .Q20H DIANNE [place] Carbonate ([place] Carbonate Er 300 Mg Tablet.Er) 600 mg PO BEDTIME COUNT INCLUDES THE [facility] Last Admin: 05/14/22 20:23 Dose: 600 mg Lorazepam (Lorazepam 0.5 Mg Tablet) 0.5 mg PO TID COUNT INCLUDES THE [facility] Last Admin: 05/14/22 20:25 Dose: Not Given Lorazepam (Lorazepam 1 Mg Tablet) 1 mg PO Q4H PRN PRN Reason: anxiety, agitation Magnesium Hydroxide (Milk Of Magnesia 30 Ml Oral.Susp) 30 ml PO DAILY PRN PRN Reason: Constipation Melatonin (Melatonin 3 Mg Tablet) 6 mg PO BEDTIME COUNT INCLUDES [facility] Last Admin: 05/14/22 20:23 Dose: 6 mg Mirtazapine (Mirtazapine 30 Mg Tablet) 30 mg PO BEDTIME COUNT INCLUDES [facility] Last Admin: 05/14/22 20:23 Dose: 30 mg Senna (Sennosides 8.6 Mg Tablet) 17.2 mg PO BEDTIME PRN PRN Reason: constipation Tamsulosin HCl (Tamsulosin Hcl 0.4 Mg Capsule) 0.4 mg PO DAILY COUNT INCLUDES [facility] Last Admin: 05/14/22 09:03 Dose: 0.4 mg Trazodone HCl (Trazodone Hcl 50 Mg Tablet) 50 mg PO BEDTIME MRX1 PRN PRN Reason: Insomnia Last Admin: 04/12/22 20:31 Dose: 50 mg Venlafaxine HCl (Venlafaxine Hcl Er 75 Mg Cap.Er.24h) 75 mg PO DAILY COUNT INCLUDES [facility] Last Admin: 05/14/22 09:04 Dose: 75 mg Vortioxetine (Vortioxetine Hydrobromide 10 Mg Tablet) 10 mg PO DAILY COUNT INCLUDES [facility] Last Admin: 05/14/22 09:03 Dose: 10 mg Home Medications Medication Instructions Recorded Confirmed Last Taken Type clozapine 50 mg tablet 1 tab PO BEDTIME 04/11/22 04/11/22 04/10/22 History finasteride 5 mg tablet 1 tab PO DAILY 04/11/22 04/11/22 Unknown History lithium carbonate 300 mg 1 tab PO BEDTIME 04/11/22 04/11/22 04/10/22 History tablet,extended release mirtazapine 30 mg tablet 1 tab PO BEDTIME 04/11/22 04/11/22 Unknown History tamsulosin 0.4 mg capsule 1 cap PO DAILY 04/11/22 04/11/22 Unknown History venlafaxine 75 mg capsule,extended 1 cap PO QAM 04/11/22 04/11/22 Unknown History release 24 hr Exam Exam Date and Time: May 15, 2022 0813 Height,Weight and Vital Signs: Height 5 ft 6 in Weight 78.6 kg Last Vital Signs Temp 97.5 F 05/15/22 07:29 Pulse 76 05/15/22 07:29 Resp 18 05/15/22 07:29 BP 145/80 H 05/15/22 07:29 Pulse Ox 97 05/15/22 07:29 O2 Del Method Room Air 05/15/22 07:29 O2 Flow Rate 2 05/13/22 08:38 Pertinent Lab Results Pertinent Lab Results: Laboratory Tests 04/11/22 04/11/22 04/11/22 08:42 20:09 20:09 WBC RBC Hgb Hct MCV MCH MCHC RDW Plt Count MPV Immature Gran % (Auto) Neut % (Auto) Lymph % (Auto) [place] % (Auto) Eos % (Auto) Baso % (Auto) Lymph # (Auto) [place] # (Auto) Eos # (Auto) Baso # (Auto) Abs Immat Gran (auto) Absolute Neuts (auto) 3.7 Absolute Nucleated RBC Nucleated RBC % (auto) Sodium 144 Potassium 4.4 Chloride 112 H Carbon Dioxide 25 Anion Gap 11 L BUN 11 Creatinine 1.06 Estim Creat Clear Calc 63.2 Estimated GFR > 60 Random Glucose 165 H Fasting Glucose Estimat Average Glucose 108 Hemoglobin A1c % 5.4 Calcium 8.7 Total Bilirubin 0.5 Direct Bilirubin 0.2 AST 13 ALT 17 Alkaline Phosphatase 79 Total Protein 5.3 L Albumin 3.4 L Triglycerides 122 Cholesterol 100 LDL Cholesterol, Calc 47 HDL Cholesterol 29 Vitamin B12 505 Folate 14.5 TSH 2.24 Urine Color Urine Appearance Urine pH Ur Specific [place] Urine Protein Urine Glucose (UA) Urine Ketones Urine Blood Urine Nitrite Ur Leukocyte Esterase Urine RBC Urine WBC Ur Squamous Epith Cells Urine Bacteria Hyaline Casts Clozapine Norclozapine [place] 04/11/22 04/16/22 04/16/22 20:09 08:12 08:12 WBC RBC Hgb Hct MCV MCH MCHC RDW Plt Count MPV Immature Gran % (Auto) Neut % (Auto) Lymph % (Auto) [place] % (Auto) Eos % (Auto) Baso % (Auto) Lymph # (Auto) [place] # (Auto) Eos # (Auto) Baso # (Auto) Abs Immat Gran (auto) Absolute Neuts (auto) Absolute Nucleated RBC Nucleated RBC % (auto) Sodium 142 Potassium 4.3 Chloride 109 H Carbon Dioxide 27 Anion Gap 10 L BUN 12 Creatinine 0.99 Estim Creat Clear Calc 67.7 Estimated GFR > 60 Random Glucose 151 H Fasting Glucose Estimat Average Glucose Hemoglobin A1c % Calcium 9.0 Total Bilirubin Direct Bilirubin AST ALT Alkaline Phosphatase Total Protein Albumin Triglycerides Cholesterol LDL Cholesterol, Calc HDL Cholesterol Vitamin B12 Folate TSH 3.41 Urine Color Urine Appearance Urine pH Ur Specific [place] Urine Protein Urine Glucose (UA) Urine Ketones Urine Blood Urine Nitrite Ur Leukocyte Esterase Urine RBC Urine WBC Ur Squamous Epith Cells Urine Bacteria Hyaline Casts Clozapine Norclozapine [place] 0.48 L 0.77 04/18/22 04/22/22 04/22/22 06:54 09:15 14:25 WBC RBC Hgb Hct MCV MCH MCHC RDW Plt Count MPV Immature Gran % (Auto) Neut % (Auto) Lymph % (Auto) [place] % (Auto) Eos % (Auto) Baso % (Auto) Lymph # (Auto) [place] # (Auto) Eos # (Auto) Baso # (Auto) Abs Immat Gran (auto) Absolute Neuts (auto) 4.8 Absolute Nucleated RBC Nucleated RBC % (auto) Sodium 142 Potassium 3.9 Chloride 110 H Carbon Dioxide 27 Anion Gap 9 L BUN 13 Creatinine 1.07 Estim Creat Clear Calc 62.6 Estimated GFR > 60 Random Glucose 190 H Fasting Glucose Estimat Average Glucose Hemoglobin A1c % Calcium 8.7 Total Bilirubin 0.6 Direct Bilirubin AST 16 ALT 29 Alkaline Phosphatase 72 Total Protein 5.2 L Albumin 3.5 Triglycerides Cholesterol LDL Cholesterol, Calc HDL Cholesterol Vitamin B12 Folate TSH Urine Color Yellow Urine Appearance Clear Urine pH 6.5 Ur Specific [place] <= 1.005 Urine Protein Negative Urine Glucose (UA) Negative Urine Ketones Negative Urine Blood Trace H Urine Nitrite Negative Ur Leukocyte Esterase Large (3+) H Urine RBC 0-2 Urine WBC >50 H Ur Squamous Epith Cells 0-2 Urine Bacteria None Seen Hyaline Casts 0-2 Clozapine Norclozapine [place] 04/25/22 04/30/22 04/30/22 03:33 07:45 07:45 WBC RBC Hgb Hct MCV MCH MCHC RDW Plt Count MPV Immature Gran % (Auto) Neut % (Auto) Lymph % (Auto) [place] % (Auto) Eos % (Auto) Baso % (Auto) Lymph # (Auto) [place] # (Auto) Eos # (Auto) Baso # (Auto) Abs Immat Gran (auto) Absolute Neuts (auto) 3.7 Absolute Nucleated RBC Nucleated RBC % (auto) Sodium Potassium Chloride Carbon Dioxide Anion Gap BUN Creatinine Estim Creat Clear Calc Estimated GFR Random Glucose Fasting Glucose Estimat Average Glucose 105 Hemoglobin A1c % 5.3 Calcium Total Bilirubin Direct Bilirubin AST ALT Alkaline Phosphatase Total Protein Albumin Triglycerides Cholesterol LDL Cholesterol, Calc HDL Cholesterol Vitamin B12 Folate TSH Urine Color Urine Appearance Urine pH Ur Specific [place] Urine Protein Urine Glucose (UA) Urine Ketones Urine Blood Urine Nitrite Ur Leukocyte Esterase Urine RBC Urine WBC Ur Squamous Epith Cells Urine Bacteria Hyaline Casts Clozapine 338 Norclozapine 216 [place] 05/01/22 05/01/22 05/02/22 07:07 07:07 06:07 WBC RBC Hgb Hct MCV MCH MCHC RDW Plt Count MPV Immature Gran % (Auto) Neut % (Auto) Lymph % (Auto) [place] % (Auto) Eos % (Auto) Baso % (Auto) Lymph # (Auto) [place] # (Auto) Eos # (Auto) Baso # (Auto) Abs Immat Gran (auto) Absolute Neuts (auto) 2.8 Absolute Nucleated RBC Nucleated RBC % (auto) Sodium 141 Potassium 4.4 Chloride 110 H Carbon Dioxide 27 Anion Gap 8 L BUN 15 Creatinine 0.98 Estim Creat Clear Calc 69.2 Estimated GFR > 60 Random Glucose 105 Fasting Glucose Estimat Average Glucose Hemoglobin A1c % Calcium 8.8 Total Bilirubin Direct Bilirubin AST ALT Alkaline Phosphatase Total Protein Albumin Triglycerides Cholesterol LDL Cholesterol, Calc HDL Cholesterol Vitamin B12 Folate TSH 3.76 Urine Color Urine Appearance Urine pH Ur Specific [place] Urine Protein Urine Glucose (UA) Urine Ketones Urine Blood Urine Nitrite Ur Leukocyte Esterase Urine RBC Urine WBC Ur Squamous Epith Cells Urine Bacteria Hyaline Casts Clozapine Norclozapine [place] 0.88 05/05/22 05/05/22 05/09/22 07:54 07:54 08:11 WBC 5.8 RBC 4.61 Hgb 13.7 L Hct 43.1 MCV 93.5 MCH 29.7 MCHC 31.8 RDW 12.8 Plt Count 207 MPV 9.0 L Immature Gran % (Auto) 0.3 Neut % (Auto) 55.4 Lymph % (Auto) 32.2 [place] % (Auto) 9.7 Eos % (Auto) 1.9 Baso % (Auto) 0.5 Lymph # (Auto) 1.9 [place] # (Auto) 0.6 Eos # (Auto) 0.1 Baso # (Auto) 0.0 Abs Immat Gran (auto) 0.02 Absolute Neuts (auto) 3.2 4.1 Absolute Nucleated RBC 0.000 Nucleated RBC % (auto) 0.0 Sodium 141 Potassium 4.3 Chloride 107 Carbon Dioxide 28 Anion Gap 10 L BUN 17 H Creatinine 1.03 Estim Creat Clear Calc 65.9 Estimated GFR > 60 Random Glucose Fasting Glucose 130 H Estimat Average Glucose Hemoglobin A1c % Calcium 9.0 Total Bilirubin 0.9 Direct Bilirubin AST 18 ALT 37 Alkaline Phosphatase 90 Total Protein 5.6 L Albumin 3.8 Triglycerides Cholesterol LDL Cholesterol, Calc HDL Cholesterol Vitamin B12 Folate TSH Urine Color Urine Appearance Urine pH Ur Specific [place] Urine Protein Urine Glucose (UA) Urine Ketones Urine Blood Urine Nitrite Ur Leukocyte Esterase Urine RBC Urine WBC Ur Squamous Epith Cells Urine Bacteria Hyaline Casts Clozapine Norclozapine [place] Airway Mallampati Class: II TM Dist: >3cm Neck ROM: Full Heart: rrr Lungs: cta Assessment and Plan Assessment Anesthesia Assessment: Anesthesia Plan Discussed and Chart Reviewed Final Anesthetic Review Family History of Problems with Anesthesia: No History of Problems with Anesthesia: No NPO: Yes ASA Class: III Final Preanesthetic Review: No Changes in Pt Med Stat, Meds/Allgs Chart Reviewed and Consent Obtained/Reviewed Patient Risk: Intermediate Procedure Risk: Intermediate Anesthetic Plan Anesthetic Plan: GA Disposition: Standard PACU
--- NOTE | 2022-05-15 08:32 | MHC.SHP ---
Pre-Procedural Eval Section A Date of Service: 05/15/22 The patient is an INPATIENT: Yes Changes since office visit: Yes Changes in Medication and Yes Patient answered all questions; No Cold of Flu in the past 2 weeks and No New Medical Problems The History & Physical has been completed within 30 days and I have reviewed it.: Yes Section B Chief Complaint: MDD Recurrent Episode Severe PTSD Allergies: Allergies Allergy/AdvReac Type Severity Reaction Status Date / Time levofloxacin [From Levaquin] Allergy Rash Verified 05/08/22 07:07 Penicillins Allergy Rash Verified 05/08/22 07:07 Plan I have reviewed the history and physical and performed a pertinent physical examination on my patient. No changes have occurred unless specified. Time Spent With Patient Time: Total time managing care of this patient today ____ minutes.
--- NOTE | 2022-05-15 08:32 | HO.ECTPROC ---
ECT Procedure Note Diagnosis/Treatment Date of Service: 05/15/22 Diagnosis: Schizoaffective Disorder Previous ECT Date: 05/11/22 Current Treatment Number: 5 Treatment: Series Interval Clinical Notes: Patient states he has some improvement no complaints of cognitive difficulties when seen Time: Total time managing care of this patient today __30__ minutes. ECT Settings Device: THYMATRON DGx Electrode Placement: Right Unilateral Program/Pulse Width: 0.50 Energy Percent: 100 Seizure Duration By EEG (in seconds): 33 (EEG showed seizure activity until 45 s) Medications Administration General Anesthetic: Etomidate (14) Muscle Relaxant: Succinylcholine (100) Ancillary Medications Anti-emetics: Zofran - Pre ECT Airway Management Airway Management: Bag Mask Ventilation Treatment Recommendations No Changes Recommended: No change Notes: Continue treatment series discussed holding lithium night prior to treatment may prevent delirium Pt Tolerated Procedure w/o Issue: Yes
[2022-05-15] MEDS: Finasteride 5 MG TABLET PO (10:56)
[2022-05-15] MEDS: Venlafaxine HCl ER 75 MG CAP.ER.24H PO (10:57)
[2022-05-15] MEDS: Tamsulosin HCL 0.4 MG CAPSULE PO (10:57)
[2022-05-15] MEDS: Vortioxetine Hydrobromide 10 MG TABLET PO (10:57)
--- NOTE | 2022-05-15 14:34 | P.PNPSI_ITS ---
Subjective Subjective Date of Service: 05/15/22 Reason For Visit: MDD Recurrent Episode Severe PTSD Subjective Notes: Conditional Voluntary Interim History: The nursing staff reported the patient had ECT today in the morning, he had been attending to groups and he reported the 1st ECT was the most successful of all of those. On interview the patient is slightly sedated after the procedure but able to cope with stressors. We will continue to observe his behavior with a recent changes of medications and ECT. Mental Status Exam Mental Status Exam Patient Appearance: Appropriate Patient Orientation: Person and Situation Level of Consciousness: Awake and Appropriate Patient Behavior: Guarded and Passive Mood Description: Withdrawn Affect Description: Constricted Patient Cognition Impaired: Yes Ability to Follow Directions: Good Speech Pattern: Clear Hallucinations: None Delusions: Not Present Thought Process: Distracted and Linear Thought Content: positive for [place], positive for Circumstantial and positive for Goal Oriented Judgement: Fair Diagnostics Vital Signs (24Hr): Vital Signs - 24 hr 05/14/22 18:00 05/15/22 05:38 05/15/22 07:29 Temperature 97.2 F 97.5 F Pulse Rate 84 71 76 Respiratory Rate 16 17 18 Blood Pressure 154/65 H 131/84 145/80 H Pulse Oximetry 93 98 97 Oxygen Delivery Method Room Air Room Air Room Air Oxygen Flow Rate 05/15/22 09:55 05/15/22 10:00 05/15/22 10:05 Temperature 99.6 F Pulse Rate 84 82 83 Respiratory Rate 14 16 16 Blood Pressure 172/73 H 181/73 H 135/76 Pulse Oximetry 100 100 100 Oxygen Delivery Method Nasal Cannula with ETCO2 Nasal Cannula with ETCO2 Room Air Oxygen Flow Rate 2 2 05/15/22 10:10 05/15/22 10:25 05/15/22 10:45 Temperature 98.5 F 98.0 F Pulse Rate 82 82 81 Respiratory Rate 16 16 16 Blood Pressure 142/78 H 146/81 H 150/75 H Pulse Oximetry 100 100 95 Oxygen Delivery Method Room Air Room Air Oxygen Flow Rate 05/15/22 10:45 Temperature 98.0 F Pulse Rate 81 Respiratory Rate 16 Blood Pressure 150/75 H Pulse Oximetry 95 Oxygen Delivery Method Room Air Oxygen Flow Rate BMI result Body Mass Index 27.9 Labs 05/05/22 07:54 05/05/22 07:54 Imaging Radiology Impressions: ITS Impressions Brain MRI 03/10/23 09:39 IMPRESSION: - No acute intracranial findings. No acute infarcts. - There is global cerebral volume loss and there is mild chronic microangiopathy. Medications Medications Current Medications Acetaminophen (Acetaminophen 325 Mg Tablet) 650 mg PO Q6H PRN PRN Reason: Headache/Pain Mild Scale (1-3) Last Admin: 04/26/22 06:02 Dose: 650 mg Al Hydroxide/Mg Hydroxide (Magnesium Hydrox/Alum Hydrox 30 Ml Oral.Susp) 30 ml PO Q6H PRN PRN Reason: Heartburn/Nausea Atorvastatin Calcium (Atorvastatin Calcium 20 Mg Tablet) 20 mg PO BEDTIME [facility] Last Admin: 05/14/22 20:23 Dose: 20 mg Clozapine (Clozapine 100 Mg Tablet) 200 mg PO BEDTIME [facility] Last Admin: 05/14/22 20:23 Dose: 200 mg Finasteride (Finasteride 5 Mg Tablet) 5 mg PO DAILY [facility] Last Admin: 05/15/22 10:56 Dose: 5 mg [place] Carbonate ([place] Carbonate Er 300 Mg Tablet.Er) 600 mg PO BEDTIME [facility] Last Admin: 05/14/22 20:23 Dose: 600 mg Lorazepam (Lorazepam 0.5 Mg Tablet) 0.5 mg PO TID [facility] Last Admin: 05/15/22 10:59 Dose: Not Given Magnesium Hydroxide (Milk Of Magnesia 30 Ml Oral.Susp) 30 ml PO DAILY PRN PRN Reason: Constipation Melatonin (Melatonin 3 Mg Tablet) 6 mg PO BEDTIME [facility] Last Admin: 05/14/22 20:23 Dose: 6 mg Mirtazapine (Mirtazapine 30 Mg Tablet) 30 mg PO BEDTIME [facility] Last Admin: 05/14/22 20:23 Dose: 30 mg Senna (Sennosides 8.6 Mg Tablet) 17.2 mg PO BEDTIME PRN PRN Reason: constipation Tamsulosin HCl (Tamsulosin Hcl 0.4 Mg Capsule) 0.4 mg PO DAILY [facility] Last Admin: 05/15/22 10:57 Dose: 0.4 mg Trazodone HCl (Trazodone Hcl 50 Mg Tablet) 50 mg PO BEDTIME MRX1 PRN PRN Reason: Insomnia Last Admin: 04/12/22 20:31 Dose: 50 mg Venlafaxine HCl (Venlafaxine Hcl Er 75 Mg Cap.Er.24h) 75 mg PO DAILY [facility] Last Admin: 05/15/22 10:57 Dose: 75 mg Vortioxetine (Vortioxetine Hydrobromide 10 Mg Tablet) 10 mg PO DAILY [facility] Last Admin: 05/15/22 10:57 Dose: 10 mg Allergies Allergies Allergy/AdvReac Type Severity Reaction Status Date / Time levofloxacin [From Levaquin] Allergy Rash Verified 05/08/22 07:07 Penicillins Allergy Rash Verified 05/08/22 07:07 Assessment & Plan Assessment & Plan (1) Routine medical exam: Status: Acute Code(s): Z00.00 - Encounter for general adult medical examination without abnormal findings Plan 72-year-old male with history of anxiety/depression, glaucoma, hypercholesterolemia, hypertension recently treated for UTI admitted to [facility] psych with consult placed to Medicine for ECT evaluation. #MDD -Plan per psychiatry -Has undergone ect in past without adverse effect. At this time, there exists no medical contraindication for patient to receive ECT at this time Thank you for allowing me to participate in this consult. Signing off at this time. Please do not hesitate to call for further questions. Plan 1. Continue with same treatment. 2. Continue ECT with regular right unilateral. 3. Reassessment with results. Reason for contiued inpatient stay Substantial Risk for: inability to function, rapid decompensation and med/psych decompensation Time Spent With Patient Time: Total time managing care of this patient today __20__ minutes.
[2022-05-15] MEDS: cloZAPine 100 MG TABLET 200 MG PO (20:31)
[2022-05-15] MEDS: Melatonin 3 MG TABLET 6 MG PO (20:31)
[2022-05-15] MEDS: Atorvastatin Calcium 20 MG TABLET PO (20:31)
[2022-05-15] MEDS: LORazepam 0.5 MG TABLET PO (20:31)
[2022-05-15] MEDS: Mirtazapine 30 MG TABLET PO (20:31)
[2022-05-15] MEDS: Lithium Carbonate ER 300 MG TABLET.ER 600 MG PO (20:31)
[2022-05-16 06:00] VITALS: BP 120/69; PULSE 89; RESP 18; TEMP 36.6; O2SAT 96
[2022-05-16 07:06] LABS: Neut%MD 54.4 %; Neutrophils Absolute Auto 3.6 x10*3/uL (2.0-8.3); WBCANC 6.6 X10*3/uL
[2022-05-16] MEDS: Venlafaxine HCl ER 75 MG CAP.ER.24H PO (09:06)
[2022-05-16] MEDS: Tamsulosin HCL 0.4 MG CAPSULE PO (09:06)
[2022-05-16] MEDS: LORazepam 0.5 MG TABLET PO ×3 (09:06→20:36)
[2022-05-16] MEDS: Finasteride 5 MG TABLET PO (09:06)
[2022-05-16] MEDS: Vortioxetine Hydrobromide 10 MG TABLET PO (09:06)
--- NOTE | 2022-05-16 12:55 | HO.PSYCHPN ---
Subjective Subjective Date of Service: 05/16/22 Reason For Visit: MDD Recurrent Episode Severe PTSD Subjective Notes: Conditional Voluntary Interim History: Pt reports his mood is much improved. He denies intrusive thoughts or auditory hallucinations. He denies SI/HI. He reports ECT has been very helpful. He states he hopes his notives the difference, although it seems like they are going through divorce. Per nursing, pt much brighter, sleeping through the night, visible on the unit. No behavioral concerns. Medication Compliance: Yes Review of Systems Review of Systems General: No fevers, malaise, unintentional weight loss HEENT: No blurred vision, diplopia. No sore throat, nasal congestion, rhinorrhea, sinus pain, ear pain Cardiovascular: No chest pain, palpitations, or leg edema Respiratory: No shortness of breath, wheezing, cough GI: No abdominal pain, nausea, vomiting, diarrhea, constipation, melena, hematochezia : No dysuria, hematuria, increased urinary frequency, decreased urinary output MSK: No myalgia, back pain Neuro: No headaches, weakness, paresthesias Skin: No rashes or lesions Yes all other systems are reviewed and are negative Mental Status Exam Mental Status Exam Narrative: In today's visit he is alert, pleasant and interactive. Moderate eye contact. Soft-spoken speech. Affect is appropriate and brighter. Mood is much better . No signs of psychosis. Pt denies SI/HI. No dangerous behaviors.Insight/judgment fair x 2. Diagnostics Vital Signs (24Hr): Vital Signs - 24 hr 05/15/22 20:54 05/16/22 06:00 Temperature 97.8 F Pulse Rate 73 89 Respiratory Rate 16 18 Blood Pressure 121/81 120/69 Pulse Oximetry 95 96 Oxygen Delivery Method Room Air Room Air BMI result Body Mass Index 27.9 Labs 05/05/22 07:54 05/05/22 07:54 Labs: Laboratory Results - last 48 hr 05/16/22 06:40 Absolute Neuts (auto) 3.6 Imaging Radiology Impressions: ITS Impressions Brain MRI 04/24/22 09:39 IMPRESSION: - No acute intracranial findings. No acute infarcts. - There is global cerebral volume loss and there is mild chronic microangiopathy. Medications Medications Current Medications Acetaminophen (Acetaminophen 325 Mg Tablet) 650 mg PO Q6H PRN PRN Reason: Headache/Pain Mild Scale (1-3) Last Admin: 04/26/22 06:02 Dose: 650 mg Al Hydroxide/Mg Hydroxide (Magnesium Hydrox/Alum Hydrox 30 Ml Oral.Susp) 30 ml PO Q6H PRN PRN Reason: Heartburn/Nausea Atorvastatin Calcium (Atorvastatin Calcium 20 Mg Tablet) 20 mg PO BEDTIME [facility] Last Admin: 05/15/22 20:31 Dose: 20 mg Clozapine (Clozapine 100 Mg Tablet) 200 mg PO BEDTIME [facility] Last Admin: 05/15/22 20:31 Dose: 200 mg Finasteride (Finasteride 5 Mg Tablet) 5 mg PO DAILY [facility] Last Admin: 05/16/22 09:06 Dose: 5 mg [place] Carbonate ([place] Carbonate Er 300 Mg Tablet.Er) 600 mg PO BEDTIME [facility] Last Admin: 05/15/22 20:31 Dose: 600 mg Lorazepam (Lorazepam 0.5 Mg Tablet) 0.5 mg PO TID [facility] Last Admin: 05/16/22 09:06 Dose: 0.5 mg Lorazepam (Lorazepam 1 Mg Tablet) 1 mg PO Q4H PRN PRN Reason: agitation Magnesium Hydroxide (Milk Of Magnesia 30 Ml Oral.Susp) 30 ml PO DAILY PRN PRN Reason: Constipation Melatonin (Melatonin 3 Mg Tablet) 6 mg PO BEDTIME [facility] Last Admin: 05/15/22 20:31 Dose: 6 mg Mirtazapine (Mirtazapine 30 Mg Tablet) 30 mg PO BEDTIME [facility] Last Admin: 05/15/22 20:31 Dose: 30 mg Senna (Sennosides 8.6 Mg Tablet) 17.2 mg PO BEDTIME PRN PRN Reason: constipation Tamsulosin HCl (Tamsulosin Hcl 0.4 Mg Capsule) 0.4 mg PO DAILY [facility] Last Admin: 05/16/22 09:06 Dose: 0.4 mg Trazodone HCl (Trazodone Hcl 50 Mg Tablet) 50 mg PO BEDTIME MRX1 PRN PRN Reason: Insomnia Last Admin: 04/12/22 20:31 Dose: 50 mg Venlafaxine HCl (Venlafaxine Hcl Er 75 Mg Cap.Er.24h) 75 mg PO DAILY [facility] Last Admin: 05/16/22 09:06 Dose: 75 mg Vortioxetine (Vortioxetine Hydrobromide 10 Mg Tablet) 10 mg PO DAILY [facility] Last Admin: 05/16/22 09:06 Dose: 10 mg Allergies Allergies Allergy/AdvReac Type Severity Reaction Status Date / Time levofloxacin [From Levaquin] Allergy Rash Verified 05/08/22 07:07 Penicillins Allergy Rash Verified 05/08/22 07:07 Assessment & Plan Assessment & Plan (1) Routine medical exam: Status: Acute Code(s): Z00.00 - Encounter for general adult medical examination without abnormal findings Plan 72-year-old male with history of anxiety/depression, glaucoma, hypercholesterolemia, hypertension recently treated for UTI admitted to [facility] psych with consult placed to Medicine for ECT evaluation. #MDD -Plan per psychiatry -Has undergone ect in past without adverse effect. At this time, there exists no medical contraindication for patient to receive ECT at this time Thank you for allowing me to participate in this consult. Signing off at this time. Please do not hesitate to call for further questions. Plan 1. Continue with same treatment. 2. Continue ECT with regular right unilateral. 3. Reassessment with results. 05/16 continue tx. Reason for contiued inpatient stay Substantial Risk for: harm to self Time Spent With Patient Time: Total time managing care of this patient today ____ minutes.
[2022-05-16 18:00] VITALS: BP 123/77; PULSE 86; RESP 18; TEMP 36.3; O2SAT 96
[2022-05-16] MEDS: Lithium Carbonate ER 300 MG TABLET.ER 600 MG PO (20:36)
[2022-05-16] MEDS: cloZAPine 100 MG TABLET 200 MG PO (20:37)
[2022-05-16] MEDS: Melatonin 3 MG TABLET 6 MG PO (20:37)
[2022-05-16] MEDS: Atorvastatin Calcium 20 MG TABLET PO (20:38)
[2022-05-16] MEDS: Mirtazapine 30 MG TABLET PO (20:38)
[2022-05-16] MEDS: LORazepam 1 MG TABLET PO (23:08)
[2022-05-17 06:00] VITALS: BP 140/80; PULSE 70; RESP 18; TEMP 36.8; O2SAT 95
[2022-05-17] MEDS: Tamsulosin HCL 0.4 MG CAPSULE PO (08:43)
[2022-05-17] MEDS: Finasteride 5 MG TABLET PO (08:43)
[2022-05-17] MEDS: Venlafaxine HCl ER 75 MG CAP.ER.24H PO (08:43)
[2022-05-17] MEDS: Vortioxetine Hydrobromide 10 MG TABLET PO (08:43)
[2022-05-17] MEDS: LORazepam 0.5 MG TABLET PO ×3 (08:43→20:47)
[2022-05-17 18:00] VITALS: BP 140/67; PULSE 83; RESP 18; TEMP 36.7; O2SAT 97
--- NOTE | 2022-05-17 19:28 | PC.NURSE ---
Pt due for ECT in am. Loida Moreno [employer] notified of continued confusion. Loida will notify Dr Torres/Dr Womack re: confusion and scheduled ECT tomorrow am.
--- NOTE | 2022-05-17 19:59 | HO.PSYCHPN ---
Subjective Subjective Date of Service: 05/17/22 Reason For Visit: MDD Recurrent Episode Severe PTSD Subjective Notes: Conditional Voluntary Interim History: Pt appears much more confused today. He reports it is Wednesday, not sure where he is. He does know this is the hospital. He denies SI/HI. His gait is unsteady, which is not his baseline. [place] held (increased confusion), in anticipation for ECT tomorrow. Dr. Womack still wants to plan for ECT tomorrow unless he appears very confused. Review of Systems Review of Systems General: No fevers, malaise, unintentional weight loss HEENT: No blurred vision, diplopia. No sore throat, nasal congestion, rhinorrhea, sinus pain, ear pain Cardiovascular: No chest pain, palpitations, or leg edema Respiratory: No shortness of breath, wheezing, cough GI: No abdominal pain, nausea, vomiting, diarrhea, constipation, melena, hematochezia : No dysuria, hematuria, increased urinary frequency, decreased urinary output MSK: No myalgia, back pain Neuro: No headaches, weakness, paresthesias Skin: No rashes or lesions Yes all other systems are reviewed and are negative Mental Status Exam Mental Status Exam Narrative: In today's visit he is alert, pleasant and interactive. Moderate eye contact. Soft-spoken speech. Affect is appropriate and brighter. Mood is much better . No signs of psychosis. Pt denies SI/HI. No dangerous behaviors.Insight/judgment fair x 2. Diagnostics Vital Signs (24Hr): Vital Signs - 24 hr 05/17/22 06:00 Temperature 98.2 F Pulse Rate 70 Respiratory Rate 18 Blood Pressure 140/80 H Pulse Oximetry 95 Oxygen Delivery Method Room Air BMI result Body Mass Index 27.9 Labs 05/05/22 07:54 05/05/22 07:54 Labs: Laboratory Results - last 48 hr 05/16/22 06:40 Absolute Neuts (auto) 3.6 Imaging Radiology Impressions: ITS Impressions Brain MRI 04/24/22 09:39 IMPRESSION: - No acute intracranial findings. No acute infarcts. - There is global cerebral volume loss and there is mild chronic microangiopathy. Medications Medications Current Medications Acetaminophen (Acetaminophen 325 Mg Tablet) 650 mg PO Q6H PRN PRN Reason: Headache/Pain Mild Scale (1-3) Last Admin: 04/26/22 06:02 Dose: 650 mg Al Hydroxide/Mg Hydroxide (Magnesium Hydrox/Alum Hydrox 30 Ml Oral.Susp) 30 ml PO Q6H PRN PRN Reason: Heartburn/Nausea Atorvastatin Calcium (Atorvastatin Calcium 20 Mg Tablet) 20 mg PO BEDTIME [facility] Last Admin: 05/16/22 20:38 Dose: 20 mg Clozapine (Clozapine 100 Mg Tablet) 200 mg PO BEDTIME [facility] Last Admin: 05/16/22 20:37 Dose: 200 mg Finasteride (Finasteride 5 Mg Tablet) 5 mg PO DAILY [facility] Last Admin: 05/17/22 08:43 Dose: 5 mg [place] Carbonate ([place] Carbonate Er 300 Mg Tablet.Er) 600 mg PO BEDTIME [facility] Last Admin: 05/16/22 20:36 Dose: 600 mg Lorazepam (Lorazepam 0.5 Mg Tablet) 0.5 mg PO TID [facility] Last Admin: 05/17/22 16:00 Dose: 0.5 mg Lorazepam (Lorazepam 1 Mg Tablet) 1 mg PO Q4H PRN PRN Reason: agitation Last Admin: 05/16/22 23:08 Dose: 1 mg Magnesium Hydroxide (Milk Of Magnesia 30 Ml Oral.Susp) 30 ml PO DAILY PRN PRN Reason: Constipation Melatonin (Melatonin 3 Mg Tablet) 6 mg PO BEDTIME [facility] Last Admin: 05/16/22 20:37 Dose: 6 mg Mirtazapine (Mirtazapine 30 Mg Tablet) 30 mg PO BEDTIME [facility] Last Admin: 05/16/22 20:38 Dose: 30 mg Senna (Sennosides 8.6 Mg Tablet) 17.2 mg PO BEDTIME PRN PRN Reason: constipation Tamsulosin HCl (Tamsulosin Hcl 0.4 Mg Capsule) 0.4 mg PO DAILY [facility] Last Admin: 05/17/22 08:43 Dose: 0.4 mg Trazodone HCl (Trazodone Hcl 50 Mg Tablet) 50 mg PO BEDTIME MRX1 PRN PRN Reason: Insomnia Last Admin: 04/12/22 20:31 Dose: 50 mg Venlafaxine HCl (Venlafaxine Hcl Er 75 Mg Cap.Er.24h) 75 mg PO DAILY [facility] Last Admin: 05/17/22 08:43 Dose: 75 mg Vortioxetine (Vortioxetine Hydrobromide 10 Mg Tablet) 10 mg PO DAILY [facility] Last Admin: 05/17/22 08:43 Dose: 10 mg Allergies Allergies Allergy/AdvReac Type Severity Reaction Status Date / Time levofloxacin [From Levaquin] Allergy Rash Verified 05/08/22 07:07 Penicillins Allergy Rash Verified 05/08/22 07:07 Assessment & Plan Assessment & Plan (1) Major depressive disorder with psychotic features: Status: Acute Code(s): F32.3 - Major depressive disorder, single episode, severe with psychotic features Plan 72-year-old male with history of anxiety/depression, glaucoma, hypercholesterolemia, hypertension recently treated for UTI admitted to [facility] psych with consult placed to Medicine for ECT evaluation. #MDD -Plan per psychiatry -Has undergone ect in past without adverse effect. At this time, there exists no medical contraindication for patient to receive ECT at this time Thank you for allowing me to participate in this consult. Signing off at this time. Please do not hesitate to call for further questions. Plan 1. Continue with same treatment. 2. Continue ECT with regular right unilateral. 3. Reassessment with results. 4/2 continue tx. Reason for contiued inpatient stay Substantial Risk for: harm to self and inability to function Time Spent With Patient Time: Total time managing care of this patient today ____ minutes.
[2022-05-17] MEDS: cloZAPine 100 MG TABLET 200 MG PO (20:46)
[2022-05-17] MEDS: Melatonin 3 MG TABLET 6 MG PO (20:46)
[2022-05-17] MEDS: Atorvastatin Calcium 20 MG TABLET PO (20:47)
[2022-05-17] MEDS: Mirtazapine 30 MG TABLET PO (20:47)
[2022-05-18] VITALS (10 sets, daily range): BP systolic 142–172; BP diastolic 73–96; PULSE 74–95; RESP 14–18; TEMP 36.4–37.4; O2SAT 96–100
--- NOTE | 2022-05-18 07:06 | MHC.SHP ---
Pre-Procedural Eval Section A Date of Service: 05/18/22 The patient is an INPATIENT: Yes Changes since office visit: No Cold of Flu in the past 2 weeks, No New Medical Problems, No Changes in Medication and No Patient answered all questions The History & Physical has been completed within 30 days and I have reviewed it.: Yes Section B Chief Complaint: MDD Recurrent Episode Severe PTSD Allergies: Allergies Allergy/AdvReac Type Severity Reaction Status Date / Time levofloxacin [From Levaquin] Allergy Rash Verified 05/08/22 07:07 Penicillins Allergy Rash Verified 05/08/22 07:07 Plan I have reviewed the history and physical and performed a pertinent physical examination on my patient. No changes have occurred unless specified. Time Spent With Patient Time: Total time managing care of this patient today ____ minutes.
--- NOTE | 2022-05-18 07:12 | HO.ANESPROP2 ---
[facility] Active Problems Active Problems: All Active Problems (Updated 05/05/22 @ 18:15 by GENE Carey) Routine medical exam (Acute) UTI (urinary tract infection) (Acute) Routine history and physical examination of adult (Acute) Major depressive disorder with psychotic features (Acute) Past Medical History Medical History Anxiety Depression Glaucoma Hypercholesteremia Hypertension Laceration of abdomen Laceration of chest Laceration of wrist UTI (urinary tract infection) Family History Family history of problems with anesthesia: No Surgical History Surgical History History of laparotomy History of Problems with Anesthesia: No Social History Social History Household Members: Spouse Housing: House Are you a primary acute care assistant to a significant other at home: No Do you presently have visiting nurse or other home services: No Patient Tobacco Use Status: Former Tobacco user Quit Date: 03/2200 Tobacco use type: Cigarette and Cigar Smoked in Last 30 Days: No e-Cigarette/Vaping Use: Never Used Patient Interested in Nicotine Replacement: No Use of substances other than those prescribed or required for medical reasons: No Currently Displaying Signs/Symptoms of Drug Intoxication Withdrawal: No Any prior treatment program specific to substance use: No Are you DNR?: No Advance Directives: No Advance Directives Information Provided: No Suicidal Behavior: History of suicide attemps Current/Past Psychiatric Disorders: Alcohol abuse, Chronic mental illess and Mood disorder Phan Symptoms: Impulsivity Family History: Attempts Change in Treatment: Change in provider Access to Firearms: No Do you have thoughts of harming others: None Do you have a plan to hurt others: No Plan Do you have the means to hurt others: Yes (pervasive thoughts of using kitchen knife to harm/kill and self) Recently lost weight without trying: No Nutrition Risks: No Nutritional Risk service: No Sexual orientation: Straight/Heterosexual Gender identity: Male Meds Allergies Allergy/AdvReac Type Severity Reaction Status Date / Time levofloxacin [From Levaquin] Allergy Rash Verified 05/08/22 07:07 Penicillins Allergy Rash Verified 05/08/22 07:07 Active Medications: Current Medications Acetaminophen (Acetaminophen 325 Mg Tablet) 650 mg PO Q6H PRN PRN Reason: Headache/Pain Mild Scale (1-3) Last Admin: 04/26/22 06:02 Dose: 650 mg Al Hydroxide/Mg Hydroxide (Magnesium Hydrox/Alum Hydrox 30 Ml Oral.Susp) 30 ml PO Q6H PRN PRN Reason: Heartburn/Nausea Atorvastatin Calcium (Atorvastatin Calcium 20 Mg Tablet) 20 mg PO BEDTIME [facility] Last Admin: 05/17/22 20:47 Dose: 20 mg Clozapine (Clozapine 100 Mg Tablet) 200 mg PO BEDTIME [facility] Last Admin: 05/17/22 20:46 Dose: 200 mg Finasteride (Finasteride 5 Mg Tablet) 5 mg PO DAILY [facility] Last Admin: 05/17/22 08:43 Dose: 5 mg Lactated Ringer's (Lr) 1,000 mls @ 50 mls/hr IVCONT .Q20H DIANNE Kathryn Carbonate (Kathryn Carbonate Er 300 Mg Tablet.Er) 600 mg PO BEDTIME [facility] Last Admin: 05/16/22 20:36 Dose: 600 mg Lorazepam (Lorazepam 0.5 Mg Tablet) 0.5 mg PO TID [facility] Last Admin: 05/17/22 20:47 Dose: 0.5 mg Lorazepam (Lorazepam 1 Mg Tablet) 1 mg PO Q4H PRN PRN Reason: agitation Last Admin: 05/16/22 23:08 Dose: 1 mg Magnesium Hydroxide (Milk Of Magnesia 30 Ml Oral.Susp) 30 ml PO DAILY PRN PRN Reason: Constipation Melatonin (Melatonin 3 Mg Tablet) 6 mg PO BEDTIME [facility] Last Admin: 05/17/22 20:46 Dose: 6 mg Mirtazapine (Mirtazapine 30 Mg Tablet) 30 mg PO BEDTIME [facility] Last Admin: 05/17/22 20:47 Dose: 30 mg Senna (Sennosides 8.6 Mg Tablet) 17.2 mg PO BEDTIME PRN PRN Reason: constipation Tamsulosin HCl (Tamsulosin Hcl 0.4 Mg Capsule) 0.4 mg PO DAILY [facility] Last Admin: 05/17/22 08:43 Dose: 0.4 mg Trazodone HCl (Trazodone Hcl 50 Mg Tablet) 50 mg PO BEDTIME MRX1 PRN PRN Reason: Insomnia Last Admin: 04/12/22 20:31 Dose: 50 mg Venlafaxine HCl (Venlafaxine Hcl Er 75 Mg Cap.Er.24h) 75 mg PO DAILY [facility] Last Admin: 05/17/22 08:43 Dose: 75 mg Vortioxetine (Vortioxetine Hydrobromide 10 Mg Tablet) 10 mg PO DAILY [facility] Last Admin: 05/17/22 08:43 Dose: 10 mg Home Medications Medication Instructions Recorded Confirmed Last Taken Type clozapine 50 mg tablet 1 tab PO BEDTIME 04/11/22 04/11/22 04/10/22 History finasteride 5 mg tablet 1 tab PO DAILY 04/11/22 04/11/22 Unknown History lithium carbonate 300 mg 1 tab PO BEDTIME 04/11/22 04/11/22 04/10/22 History tablet,extended release mirtazapine 30 mg tablet 1 tab PO BEDTIME 04/11/22 04/11/22 Unknown History tamsulosin 0.4 mg capsule 1 cap PO DAILY 04/11/22 04/11/22 Unknown History venlafaxine 75 mg capsule,extended 1 cap PO QAM 04/11/22 04/11/22 Unknown History release 24 hr Exam Exam Date and Time: May 18, 2022 0712 Height,Weight and Vital Signs: Height 5 ft 6 in Weight 78.6 kg Last Vital Signs Temp 98.3 F 05/18/22 06:53 Pulse 75 05/18/22 06:53 Resp 18 05/18/22 06:53 BP 144/86 H 05/18/22 06:53 Pulse Ox 98 05/18/22 06:53 O2 Del Method Room Air 05/18/22 06:53 O2 Flow Rate 2 05/15/22 10:00 Pertinent Lab Results Pertinent Lab Results: Laboratory Tests 04/11/22 04/11/22 04/11/22 08:42 20:09 20:09 WBC RBC Hgb Hct MCV MCH MCHC RDW Plt Count MPV Immature Gran % (Auto) Neut % (Auto) Lymph % (Auto) Stevens % (Auto) Eos % (Auto) Baso % (Auto) Lymph # (Auto) Stevens # (Auto) Eos # (Auto) Baso # (Auto) Abs Immat Gran (auto) Absolute Neuts (auto) 3.7 Absolute Nucleated RBC Nucleated RBC % (auto) Sodium 144 Potassium 4.4 Chloride 112 H Carbon Dioxide 25 Anion Gap 11 L BUN 11 Creatinine 1.06 Estim Creat Clear Calc 63.2 Estimated GFR > 60 Random Glucose 165 H Fasting Glucose Estimat Average Glucose 108 Hemoglobin A1c % 5.4 Calcium 8.7 Total Bilirubin 0.5 Direct Bilirubin 0.2 AST 13 ALT 17 Alkaline Phosphatase 79 Total Protein 5.3 L Albumin 3.4 L Triglycerides 122 Cholesterol 100 LDL Cholesterol, Calc 47 HDL Cholesterol 29 Vitamin B12 505 Folate 14.5 TSH 2.24 Urine Color Urine Appearance Urine pH Ur Specific [place] Urine Protein Urine Glucose (UA) Urine Ketones Urine Blood Urine Nitrite Ur Leukocyte Esterase Urine RBC Urine WBC Ur Squamous Epith Cells Urine Bacteria Hyaline Casts Clozapine Norclozapine Kathryn 04/11/22 04/16/22 04/16/22 20:09 08:12 08:12 WBC RBC Hgb Hct MCV MCH MCHC RDW Plt Count MPV Immature Gran % (Auto) Neut % (Auto) Lymph % (Auto) Stevens % (Auto) Eos % (Auto) Baso % (Auto) Lymph # (Auto) Stevens # (Auto) Eos # (Auto) Baso # (Auto) Abs Immat Gran (auto) Absolute Neuts (auto) Absolute Nucleated RBC Nucleated RBC % (auto) Sodium 142 Potassium 4.3 Chloride 109 H Carbon Dioxide 27 Anion Gap 10 L BUN 12 Creatinine 0.99 Estim Creat Clear Calc 67.7 Estimated GFR > 60 Random Glucose 151 H Fasting Glucose Estimat Average Glucose Hemoglobin A1c % Calcium 9.0 Total Bilirubin Direct Bilirubin AST ALT Alkaline Phosphatase Total Protein Albumin Triglycerides Cholesterol LDL Cholesterol, Calc HDL Cholesterol Vitamin B12 Folate TSH 3.41 Urine Color Urine Appearance Urine pH Ur Specific [place] Urine Protein Urine Glucose (UA) Urine Ketones Urine Blood Urine Nitrite Ur Leukocyte Esterase Urine RBC Urine WBC Ur Squamous Epith Cells Urine Bacteria Hyaline Casts Clozapine Norclozapine Kathryn 0.48 L 0.77 04/18/22 04/22/22 04/22/22 06:54 09:15 14:25 WBC RBC Hgb Hct MCV MCH MCHC RDW Plt Count MPV Immature Gran % (Auto) Neut % (Auto) Lymph % (Auto) Stevens % (Auto) Eos % (Auto) Baso % (Auto) Lymph # (Auto) Stevens # (Auto) Eos # (Auto) Baso # (Auto) Abs Immat Gran (auto) Absolute Neuts (auto) 4.8 Absolute Nucleated RBC Nucleated RBC % (auto) Sodium 142 Potassium 3.9 Chloride 110 H Carbon Dioxide 27 Anion Gap 9 L BUN 13 Creatinine 1.07 Estim Creat Clear Calc 62.6 Estimated GFR > 60 Random Glucose 190 H Fasting Glucose Estimat Average Glucose Hemoglobin A1c % Calcium 8.7 Total Bilirubin 0.6 Direct Bilirubin AST 16 ALT 29 Alkaline Phosphatase 72 Total Protein 5.2 L Albumin 3.5 Triglycerides Cholesterol LDL Cholesterol, Calc HDL Cholesterol Vitamin B12 Folate TSH Urine Color Yellow Urine Appearance Clear Urine pH 6.5 Ur Specific [place] <= 1.005 Urine Protein Negative Urine Glucose (UA) Negative Urine Ketones Negative Urine Blood Trace H Urine Nitrite Negative Ur Leukocyte Esterase Large (3+) H Urine RBC 0-2 Urine WBC >50 H Ur Squamous Epith Cells 0-2 Urine Bacteria None Seen Hyaline Casts 0-2 Clozapine Norclozapine Kathryn 04/25/22 04/30/22 04/30/22 03:33 07:45 07:45 WBC RBC Hgb Hct MCV MCH MCHC RDW Plt Count MPV Immature Gran % (Auto) Neut % (Auto) Lymph % (Auto) Stevens % (Auto) Eos % (Auto) Baso % (Auto) Lymph # (Auto) Stevens # (Auto) Eos # (Auto) Baso # (Auto) Abs Immat Gran (auto) Absolute Neuts (auto) 3.7 Absolute Nucleated RBC Nucleated RBC % (auto) Sodium Potassium Chloride Carbon Dioxide Anion Gap BUN Creatinine Estim Creat Clear Calc Estimated GFR Random Glucose Fasting Glucose Estimat Average Glucose 105 Hemoglobin A1c % 5.3 Calcium Total Bilirubin Direct Bilirubin AST ALT Alkaline Phosphatase Total Protein Albumin Triglycerides Cholesterol LDL Cholesterol, Calc HDL Cholesterol Vitamin B12 Folate TSH Urine Color Urine Appearance Urine pH Ur Specific [place] Urine Protein Urine Glucose (UA) Urine Ketones Urine Blood Urine Nitrite Ur Leukocyte Esterase Urine RBC Urine WBC Ur Squamous Epith Cells Urine Bacteria Hyaline Casts Clozapine 338 Norclozapine 216 Kathryn 05/01/22 05/01/22 05/02/22 07:07 07:07 06:07 WBC RBC Hgb Hct MCV MCH MCHC RDW Plt Count MPV Immature Gran % (Auto) Neut % (Auto) Lymph % (Auto) Stevens % (Auto) Eos % (Auto) Baso % (Auto) Lymph # (Auto) Stevens # (Auto) Eos # (Auto) Baso # (Auto) Abs Immat Gran (auto) Absolute Neuts (auto) 2.8 Absolute Nucleated RBC Nucleated RBC % (auto) Sodium 141 Potassium 4.4 Chloride 110 H Carbon Dioxide 27 Anion Gap 8 L BUN 15 Creatinine 0.98 Estim Creat Clear Calc 69.2 Estimated GFR > 60 Random Glucose 105 Fasting Glucose Estimat Average Glucose Hemoglobin A1c % Calcium 8.8 Total Bilirubin Direct Bilirubin AST ALT Alkaline Phosphatase Total Protein Albumin Triglycerides Cholesterol LDL Cholesterol, Calc HDL Cholesterol Vitamin B12 Folate TSH 3.76 Urine Color Urine Appearance Urine pH Ur Specific [place] Urine Protein Urine Glucose (UA) Urine Ketones Urine Blood Urine Nitrite Ur Leukocyte Esterase Urine RBC Urine WBC Ur Squamous Epith Cells Urine Bacteria Hyaline Casts Clozapine Norclozapine Kathryn 0.88 05/05/22 05/05/22 05/09/22 07:54 07:54 08:11 WBC 5.8 RBC 4.61 Hgb 13.7 L Hct 43.1 MCV 93.5 MCH 29.7 MCHC 31.8 RDW 12.8 Plt Count 207 MPV 9.0 L Immature Gran % (Auto) 0.3 Neut % (Auto) 55.4 Lymph % (Auto) 32.2 Stevens % (Auto) 9.7 Eos % (Auto) 1.9 Baso % (Auto) 0.5 Lymph # (Auto) 1.9 Stevens # (Auto) 0.6 Eos # (Auto) 0.1 Baso # (Auto) 0.0 Abs Immat Gran (auto) 0.02 Absolute Neuts (auto) 3.2 4.1 Absolute Nucleated RBC 0.000 Nucleated RBC % (auto) 0.0 Sodium 141 Potassium 4.3 Chloride 107 Carbon Dioxide 28 Anion Gap 10 L BUN 17 H Creatinine 1.03 Estim Creat Clear Calc 65.9 Estimated GFR > 60 Random Glucose Fasting Glucose 130 H Estimat Average Glucose Hemoglobin A1c % Calcium 9.0 Total Bilirubin 0.9 Direct Bilirubin AST 18 ALT 37 Alkaline Phosphatase 90 Total Protein 5.6 L Albumin 3.8 Triglycerides Cholesterol LDL Cholesterol, Calc HDL Cholesterol Vitamin B12 Folate TSH Urine Color Urine Appearance Urine pH Ur Specific [place] Urine Protein Urine Glucose (UA) Urine Ketones Urine Blood Urine Nitrite Ur Leukocyte Esterase Urine RBC Urine WBC Ur Squamous Epith Cells Urine Bacteria Hyaline Casts Clozapine Norclozapine Kathryn 05/16/22 06:40 WBC RBC Hgb Hct MCV MCH MCHC RDW Plt Count MPV Immature Gran % (Auto) Neut % (Auto) Lymph % (Auto) Stevens % (Auto) Eos % (Auto) Baso % (Auto) Lymph # (Auto) Stevens # (Auto) Eos # (Auto) Baso # (Auto) Abs Immat Gran (auto) Absolute Neuts (auto) 3.6 Absolute Nucleated RBC Nucleated RBC % (auto) Sodium Potassium Chloride Carbon Dioxide Anion Gap BUN Creatinine Estim Creat Clear Calc Estimated GFR Random Glucose Fasting Glucose Estimat Average Glucose Hemoglobin A1c % Calcium Total Bilirubin Direct Bilirubin AST ALT Alkaline Phosphatase Total Protein Albumin Triglycerides Cholesterol LDL Cholesterol, Calc HDL Cholesterol Vitamin B12 Folate TSH Urine Color Urine Appearance Urine pH Ur Specific [place] Urine Protein Urine Glucose (UA) Urine Ketones Urine Blood Urine Nitrite Ur Leukocyte Esterase Urine RBC Urine WBC Ur Squamous Epith Cells Urine Bacteria Hyaline Casts Clozapine Norclozapine Kathryn Airway Mallampati Class: II TM Dist: >3cm Neck ROM: Full Heart: rrr Lungs: cta Assessment and Plan Assessment Anesthesia Assessment: Anesthesia Plan Discussed and Chart Reviewed Final Anesthetic Review Family History of Problems with Anesthesia: No History of Problems with Anesthesia: No NPO: Yes ASA Class: III Final Preanesthetic Review: No Changes in Pt Med Stat, Meds/Allgs Chart Reviewed and Consent Obtained/Reviewed Patient Risk: Intermediate Procedure Risk: Intermediate Anesthetic Plan Anesthetic Plan: GA Disposition: Standard PACU
--- NOTE | 2022-05-18 07:44 | HO.ECTPROC ---
ECT Procedure Note Diagnosis/Treatment Date of Service: 05/18/22 Diagnosis: Schizoaffective Disorder Previous ECT Date: 05/15/22 Current Treatment Number: 6 Treatment: Series Interval Clinical Notes: The patient reported that he was confused yesterday but today he was alert and oriented. He wanted to have the procedure. On interview, he reported mild improvement of dysphoria. Time: Total time managing care of this patient today __30__ minutes. ECT Settings Device: THYMATRON DGx Electrode Placement: Right Unilateral Program/Pulse Width: 0.50 Energy Percent: 100 Seizure Duration By EEG (in seconds): 28 By Motor Observation (in seconds): 0 Medications Administration General Anesthetic: Etomidate (14) Muscle Relaxant: Succinylcholine (100) Ancillary Medications Analgesics: Torodol - Pre ECT Anti-emetics: Zofran - Pre ECT Airway Management Airway Management: Bag Mask Ventilation Treatment Recommendations No Changes Recommended: No change Pt Tolerated Procedure w/o Issue: Yes
[2022-05-18] MEDS: Finasteride 5 MG TABLET PO (09:52)
[2022-05-18] MEDS: Venlafaxine HCl ER 75 MG CAP.ER.24H PO (09:53)
[2022-05-18] MEDS: Tamsulosin HCL 0.4 MG CAPSULE PO (09:54)
[2022-05-18] MEDS: Vortioxetine Hydrobromide 10 MG TABLET PO (09:54)
[2022-05-18 10:18] LABS: Appearance Urine Clear; Color Urine Yellow; Glucose Urine UA Negative (Negative); Leukocyte Esterase Urine Negative (Negative); Nitrite Urine Negative (Negative); PH 6.5 (5.0-9.0); Specific Gravity - Urine 1.015 (1.005-1.025); Urine Blood Negative (Negative); Urine Ketones Negative (Negative); Urine Protein Negative (Neg-Trace)
[2022-05-18 10:23] LABS: Bacteria Urine None Seen (None Seen); Hyaline Casts Urine 0-2 /LPF (0-2); RBC Urine 0-2 /HPF (0-2); Squamous Epithelial Cell Urine 0-2 /HPF (0-2); WBC Urine 0-5 /HPF (0-5)
[2022-05-18] MEDS: LORazepam 0.5 MG TABLET PO ×2 (14:57→20:20)
--- NOTE | 2022-05-18 15:32 | HO.PSYCHPN ---
Subjective Subjective Date of Service: 05/18/22 Reason For Visit: MDD Recurrent Episode Severe PTSD Subjective Notes: Conditional Voluntary Interim History: The nursing staff reported the patient was confused yesterday. Today in the morning he was alert and awake and he wanted to have ECT so we had it without no changes on the parameters. In the afternoon he was doing much better. The nephrology social worker reported we will have a family meeting tomorrow. Mental Status Exam Mental Status Exam Patient Appearance: Well Grooomed and Appropriate Patient Orientation: Person and Situation Level of Consciousness: Awake and Appropriate Patient Behavior: Cooperative and Passive Mood Description: Withdrawn and Constricted Affect Description: Blunted Patient Cognition Impaired: Yes Ability to Follow Directions: Good Speech Pattern: Clear Hallucinations: None Delusions: Not Present Thought Process: Distracted Thought Content: positive for [place] and positive for Poverty of Content Judgement: Fair Diagnostics Vital Signs (24Hr): Vital Signs - 24 hr 05/17/22 18:00 05/18/22 06:38 05/18/22 06:53 Temperature 98.0 F 97.5 F 98.3 F Pulse Rate 83 84 75 Respiratory Rate 18 16 18 Blood Pressure 140/67 H 153/82 H 144/86 H Pulse Oximetry 97 98 98 Oxygen Delivery Method Room Air Room Air Oxygen Flow Rate 05/18/22 08:07 05/18/22 08:12 05/18/22 08:17 Temperature 99.3 F Pulse Rate 95 82 81 Respiratory Rate 16 18 14 Blood Pressure 172/96 H 160/90 H 152/87 H Pulse Oximetry 97 98 100 Oxygen Delivery Method Nasal Cannula with ETCO2 Nasal Cannula with ETCO2 Nasal Cannula with ETCO2 Oxygen Flow Rate 2 2 2 05/18/22 08:22 05/18/22 08:37 05/18/22 08:52 Temperature 99.0 F Pulse Rate 81 82 80 Respiratory Rate 16 16 18 Blood Pressure 151/84 H 157/90 H 151/82 H Pulse Oximetry 99 97 97 Oxygen Delivery Method Room Air Room Air Room Air Oxygen Flow Rate BMI result Body Mass Index 27.9 Labs 05/05/22 07:54 05/05/22 07:54 Labs: Laboratory Results - last 48 hr 05/18/22 09:10 Urine Color Yellow Urine Appearance Clear Urine pH 6.5 Ur Specific [place] 1.015 Urine Protein Negative Urine Glucose (UA) Negative Urine Ketones Negative Urine Blood Negative Urine Nitrite Negative Ur Leukocyte Esterase Negative Urine RBC 0-2 Urine WBC 0-5 Ur Squamous Epith Cells 0-2 Urine Bacteria None Seen Hyaline Casts 0-2 Imaging Radiology Impressions: ITS Impressions Brain MRI 04/24/22 09:39 IMPRESSION: - No acute intracranial findings. No acute infarcts. - There is global cerebral volume loss and there is mild chronic microangiopathy. Medications Medications Current Medications Acetaminophen (Acetaminophen 325 Mg Tablet) 650 mg PO Q6H PRN PRN Reason: Headache/Pain Mild Scale (1-3) Last Admin: 04/26/22 06:02 Dose: 650 mg Al Hydroxide/Mg Hydroxide (Magnesium Hydrox/Alum Hydrox 30 Ml Oral.Susp) 30 ml PO Q6H PRN PRN Reason: Heartburn/Nausea Atorvastatin Calcium (Atorvastatin Calcium 20 Mg Tablet) 20 mg PO BEDTIME [facility] Last Admin: 05/17/22 20:47 Dose: 20 mg Clozapine (Clozapine 100 Mg Tablet) 200 mg PO BEDTIME [facility] Last Admin: 05/17/22 20:46 Dose: 200 mg Finasteride (Finasteride 5 Mg Tablet) 5 mg PO DAILY [facility] Last Admin: 05/18/22 09:52 Dose: 5 mg [place] Carbonate ([place] Carbonate Er 300 Mg Tablet.Er) 600 mg PO BEDTIME [facility] Last Admin: 05/16/22 20:36 Dose: 600 mg Lorazepam (Lorazepam 0.5 Mg Tablet) 0.5 mg PO TID [facility] Last Admin: 05/18/22 14:57 Dose: 0.5 mg Lorazepam (Lorazepam 1 Mg Tablet) 1 mg PO Q4H PRN PRN Reason: agitation Last Admin: 05/16/22 23:08 Dose: 1 mg Magnesium Hydroxide (Milk Of Magnesia 30 Ml Oral.Susp) 30 ml PO DAILY PRN PRN Reason: Constipation Melatonin (Melatonin 3 Mg Tablet) 6 mg PO BEDTIME [facility] Last Admin: 05/17/22 20:46 Dose: 6 mg Mirtazapine (Mirtazapine 30 Mg Tablet) 30 mg PO BEDTIME [facility] Last Admin: 05/17/22 20:47 Dose: 30 mg Senna (Sennosides 8.6 Mg Tablet) 17.2 mg PO BEDTIME PRN PRN Reason: constipation Tamsulosin HCl (Tamsulosin Hcl 0.4 Mg Capsule) 0.4 mg PO DAILY [facility] Last Admin: 05/18/22 09:54 Dose: 0.4 mg Trazodone HCl (Trazodone Hcl 50 Mg Tablet) 50 mg PO BEDTIME MRX1 PRN PRN Reason: Insomnia Last Admin: 04/12/22 20:31 Dose: 50 mg Venlafaxine HCl (Venlafaxine Hcl Er 75 Mg Cap.Er.24h) 75 mg PO DAILY [facility] Last Admin: 05/18/22 09:53 Dose: 75 mg Vortioxetine (Vortioxetine Hydrobromide 10 Mg Tablet) 10 mg PO DAILY [facility] Last Admin: 05/18/22 09:54 Dose: 10 mg Allergies Allergies Allergy/AdvReac Type Severity Reaction Status Date / Time levofloxacin [From Levaquin] Allergy Rash Verified 05/08/22 07:07 Penicillins Allergy Rash Verified 05/08/22 07:07 Assessment & Plan Assessment & Plan (1) Major depressive disorder with psychotic features: Status: Acute Code(s): F32.3 - Major depressive disorder, single episode, severe with psychotic features Plan 72-year-old male with history of anxiety/depression, glaucoma, hypercholesterolemia, hypertension recently treated for UTI admitted to [facility] psych with consult placed to Medicine for ECT evaluation. #MDD -Plan per psychiatry -Has undergone ect in past without adverse effect. At this time, there exists no medical contraindication for patient to receive ECT at this time Thank you for allowing me to participate in this consult. Signing off at this time. Please do not hesitate to call for further questions. Plan 1. Continue with same treatment. 2. Continue ECT with regular right unilateral. 3. Reassessment with results. 4. Family meeting tomorrow Reason for contiued inpatient stay Substantial Risk for: inability to function, rapid decompensation and med/psych decompensation Time Spent With Patient Time: Total time managing care of this patient today __20__ minutes.
[2022-05-18] MEDS: Acetaminophen 325 MG TABLET 650 MG PO (17:39)
[2022-05-18] MEDS: Lithium Carbonate ER 300 MG TABLET.ER 600 MG PO (20:20)
[2022-05-18] MEDS: Atorvastatin Calcium 20 MG TABLET PO (20:20)
[2022-05-18] MEDS: Melatonin 3 MG TABLET 6 MG PO (20:20)
[2022-05-18] MEDS: Mirtazapine 30 MG TABLET PO (20:20)
[2022-05-18] MEDS: cloZAPine 100 MG TABLET 200 MG PO (20:20)
[2022-05-19 09:44] VITALS: BP 126/83; PULSE 83; RESP 16; TEMP 36.4; O2SAT 98
[2022-05-19] MEDS: Vortioxetine Hydrobromide 10 MG TABLET PO (09:45)
[2022-05-19] MEDS: LORazepam 0.5 MG TABLET PO ×2 (09:45→17:49)
[2022-05-19] MEDS: Finasteride 5 MG TABLET PO (09:45)
[2022-05-19] MEDS: Tamsulosin HCL 0.4 MG CAPSULE PO (09:45)
[2022-05-19] MEDS: Venlafaxine HCl ER 75 MG CAP.ER.24H PO (09:46)
--- NOTE | 2022-05-19 16:58 | P.PNPSI_ITS ---
Subjective Subjective Date of Service: 05/19/22 Reason For Visit: MDD Recurrent Episode Severe PTSD Subjective Notes: Conditional Voluntary Interim History: The nursing staff reported the patient had been confused after ECT. He adamantly denies active suicidal ideation but he looks internally preoccupied and dysphoric. He had been participating in a few groups. Today we had a long family meeting and his daughter was upset that he was having ECT I explained the goals of treatment. On interview the patient denies new symptoms we will do ECT twice a week. Mental Status Exam Mental Status Exam Patient Appearance: Well Grooomed Patient Orientation: Person and Situation Level of Consciousness: Awake and Appropriate Patient Behavior: Guarded and Passive Mood Description: Calm Affect Description: Constricted Patient Cognition Impaired: Yes Ability to Follow Directions: Fair Speech Pattern: Clear Hallucinations: None Delusions: Not Present Thought Process: Distracted and Slowed Thinking Thought Content: positive for [place] and positive for Circumstantial Judgement: Fair Diagnostics Vital Signs (24Hr): Vital Signs - 24 hr 05/18/22 18:00 05/19/22 09:44 Temperature 97.9 F 97.5 F Pulse Rate 74 83 Respiratory Rate 18 16 Blood Pressure 142/78 H 126/83 Pulse Oximetry 96 98 Oxygen Delivery Method Room Air Room Air BMI result Body Mass Index 27.9 Labs 05/05/22 07:54 05/05/22 07:54 Labs: Laboratory Results - last 48 hr 05/18/22 09:10 Urine Color Yellow Urine Appearance Clear Urine pH 6.5 Ur Specific [place] 1.015 Urine Protein Negative Urine Glucose (UA) Negative Urine Ketones Negative Urine Blood Negative Urine Nitrite Negative Ur Leukocyte Esterase Negative Urine RBC 0-2 Urine WBC 0-5 Ur Squamous Epith Cells 0-2 Urine Bacteria None Seen Hyaline Casts 0-2 Imaging Radiology Impressions: ITS Impressions Brain MRI 04/24/22 09:39 IMPRESSION: - No acute intracranial findings. No acute infarcts. - There is global cerebral volume loss and there is mild chronic microangiopathy. Medications Medications Current Medications Acetaminophen (Acetaminophen 325 Mg Tablet) 650 mg PO Q6H PRN PRN Reason: Headache/Pain Mild Scale (1-3) Last Admin: 05/18/22 17:39 Dose: 650 mg Al Hydroxide/Mg Hydroxide (Magnesium Hydrox/Alum Hydrox 30 Ml Oral.Susp) 30 ml PO Q6H PRN PRN Reason: Heartburn/Nausea Atorvastatin Calcium (Atorvastatin Calcium 20 Mg Tablet) 20 mg PO BEDTIME [facility] Last Admin: 05/18/22 20:20 Dose: 20 mg Clozapine (Clozapine 100 Mg Tablet) 200 mg PO BEDTIME [facility] Last Admin: 05/18/22 20:20 Dose: 200 mg Finasteride (Finasteride 5 Mg Tablet) 5 mg PO DAILY [facility] Last Admin: 05/19/22 09:45 Dose: 5 mg [place] Carbonate ([place] Carbonate Er 300 Mg Tablet.Er) 600 mg PO BEDTIME [facility] Last Admin: 05/18/22 20:20 Dose: 600 mg Lorazepam (Lorazepam 0.5 Mg Tablet) 0.5 mg PO TID [facility] Last Admin: 05/19/22 09:45 Dose: 0.5 mg Lorazepam (Lorazepam 1 Mg Tablet) 1 mg PO Q4H PRN PRN Reason: agitation Last Admin: 05/16/22 23:08 Dose: 1 mg Magnesium Hydroxide (Milk Of Magnesia 30 Ml Oral.Susp) 30 ml PO DAILY PRN PRN Reason: Constipation Melatonin (Melatonin 3 Mg Tablet) 6 mg PO BEDTIME [facility] Last Admin: 05/18/22 20:20 Dose: 6 mg Mirtazapine (Mirtazapine 30 Mg Tablet) 30 mg PO BEDTIME [facility] Last Admin: 05/18/22 20:20 Dose: 30 mg Senna (Sennosides 8.6 Mg Tablet) 17.2 mg PO BEDTIME PRN PRN Reason: constipation Tamsulosin HCl (Tamsulosin Hcl 0.4 Mg Capsule) 0.4 mg PO DAILY [facility] Last Admin: 05/19/22 09:45 Dose: 0.4 mg Trazodone HCl (Trazodone Hcl 50 Mg Tablet) 50 mg PO BEDTIME MRX1 PRN PRN Reason: Insomnia Last Admin: 04/12/22 20:31 Dose: 50 mg Venlafaxine HCl (Venlafaxine Hcl Er 75 Mg Cap.Er.24h) 75 mg PO DAILY [facility] Last Admin: 05/19/22 09:46 Dose: 75 mg Vortioxetine (Vortioxetine Hydrobromide 10 Mg Tablet) 10 mg PO DAILY [facility] Last Admin: 05/19/22 09:45 Dose: 10 mg Allergies Allergies Allergy/AdvReac Type Severity Reaction Status Date / Time levofloxacin [From Levaquin] Allergy Rash Verified 05/08/22 07:07 Penicillins Allergy Rash Verified 05/08/22 07:07 Assessment & Plan Assessment & Plan (1) Major depressive disorder with psychotic features: Status: Acute Code(s): F32.3 - Major depressive disorder, single episode, severe with psychotic features Plan 72-year-old male with history of anxiety/depression, glaucoma, hypercholesterolemia, hypertension recently treated for UTI admitted to [facility] psych with consult placed to Medicine for ECT evaluation. #MDD -Plan per psychiatry -Has undergone ect in past without adverse effect. At this time, there exists no medical contraindication for patient to receive ECT at this time Thank you for allowing me to participate in this consult. Signing off at this time. Please do not hesitate to call for further questions. Plan 1. Continue with same treatment. 2. Continue ECT with regular right unilateral. Now changed to twice a week 3. Reassessment with results. 4. Family meeting Reason for contiued inpatient stay Substantial Risk for: inability to function, rapid decompensation and med/psych decompensation Time Spent With Patient Time: Total time managing care of this patient today _20___ minutes.
[2022-05-19 18:00] VITALS: BP 131/82; PULSE 82; RESP 16; TEMP 36.6; O2SAT 97
[2022-05-19 20:02] LABS: Glucose, Whole Blood 133 mg/dL (60-115)
[2022-05-19] MEDS: Melatonin 3 MG TABLET 6 MG PO (20:19)
[2022-05-19] MEDS: Mirtazapine 30 MG TABLET PO (20:20)
[2022-05-19] MEDS: Lithium Carbonate ER 300 MG TABLET.ER 600 MG PO (20:20)
[2022-05-19] MEDS: cloZAPine 100 MG TABLET 200 MG PO (20:20)
[2022-05-19] MEDS: traZODone HCL 50 MG TABLET PO (20:21)
[2022-05-19] MEDS: Atorvastatin Calcium 20 MG TABLET PO (20:21)
[2022-05-20 06:00] VITALS: BP 157/74; PULSE 74; RESP 16; TEMP 36.6; O2SAT 97
[2022-05-20 08:07] VITALS: BP 127/80; PULSE 83; RESP 18; TEMP 36.4; O2SAT 97
[2022-05-20] MEDS: LORazepam 0.5 MG TABLET PO ×3 (08:36→21:00)
[2022-05-20] MEDS: Venlafaxine HCl ER 75 MG CAP.ER.24H PO (08:36)
[2022-05-20] MEDS: Finasteride 5 MG TABLET PO (08:36)
[2022-05-20] MEDS: Tamsulosin HCL 0.4 MG CAPSULE PO (08:36)
[2022-05-20] MEDS: Vortioxetine Hydrobromide 10 MG TABLET PO (08:36)
--- NOTE | 2022-05-20 12:44 | HO.PSYCHPN ---
Subjective Subjective Date of Service: 05/20/22 Reason For Visit: MDD Recurrent Episode Severe PTSD Subjective Notes: Conditional Voluntary Interim History: The nursing staff reported the patient had been compliant with treatment, he had been confused today in the morning. The occupational therapist reported that he did 3.4 on the Emeterio test on admission and after ECT he looks more confused. Yesterday we had a very difficult family meeting, the family was upset that he had ECT but I explained them that it was a need since he was suicidal. The family has several issues and conflicts that worsened his mood. On interview the patient denies new symptoms, still with depression, less confused. Mental Status Exam Mental Status Exam Patient Appearance: Appropriate Patient Orientation: Person and Situation Level of Consciousness: Awake and Appropriate Patient Behavior: Guarded and Passive Mood Description: Calm Affect Description: Constricted Patient Cognition Impaired: Yes Ability to Follow Directions: Good Speech Pattern: Clear Hallucinations: None Delusions: Not Present Thought Process: Distracted and Slowed Thinking Thought Content: positive for [place], positive for Poverty of Content and positive for Evasive Judgement: Fair Diagnostics Vital Signs (24Hr): Vital Signs - 24 hr 05/19/22 18:00 05/20/22 06:00 05/20/22 08:07 Temperature 97.8 F 97.9 F 97.6 F Pulse Rate 82 74 83 Respiratory Rate 16 16 18 Blood Pressure 131/82 157/74 H 127/80 Pulse Oximetry 97 97 97 Oxygen Delivery Method Room Air Room Air Room Air BMI result Body Mass Index 27.9 Labs 05/05/22 07:54 05/05/22 07:54 Labs: Laboratory Results - last 48 hr 05/19/22 19:27 POC Glucose 133 H Imaging Radiology Impressions: ITS Impressions Brain MRI 04/24/22 09:39 IMPRESSION: - No acute intracranial findings. No acute infarcts. - There is global cerebral volume loss and there is mild chronic microangiopathy. Medications Medications Current Medications Acetaminophen (Acetaminophen 325 Mg Tablet) 650 mg PO Q6H PRN PRN Reason: Headache/Pain Mild Scale (1-3) Last Admin: 05/18/22 17:39 Dose: 650 mg Al Hydroxide/Mg Hydroxide (Magnesium Hydrox/Alum Hydrox 30 Ml Oral.Susp) 30 ml PO Q6H PRN PRN Reason: Heartburn/Nausea Atorvastatin Calcium (Atorvastatin Calcium 20 Mg Tablet) 20 mg PO BEDTIME [facility] Last Admin: 05/19/22 20:21 Dose: 20 mg Clozapine (Clozapine 100 Mg Tablet) 200 mg PO BEDTIME [facility] Last Admin: 05/19/22 20:20 Dose: 200 mg Finasteride (Finasteride 5 Mg Tablet) 5 mg PO DAILY [facility] Last Admin: 05/20/22 08:36 Dose: 5 mg [place] Carbonate ([place] Carbonate Er 300 Mg Tablet.Er) 600 mg PO BEDTIME [facility] Last Admin: 05/19/22 20:20 Dose: 600 mg Lorazepam (Lorazepam 0.5 Mg Tablet) 0.5 mg PO TID [facility] Last Admin: 05/20/22 08:36 Dose: 0.5 mg Lorazepam (Lorazepam 1 Mg Tablet) 1 mg PO Q4H PRN PRN Reason: agitation Last Admin: 05/16/22 23:08 Dose: 1 mg Magnesium Hydroxide (Milk Of Magnesia 30 Ml Oral.Susp) 30 ml PO DAILY PRN PRN Reason: Constipation Melatonin (Melatonin 3 Mg Tablet) 6 mg PO BEDTIME [facility] Last Admin: 05/19/22 20:19 Dose: 6 mg Mirtazapine (Mirtazapine 30 Mg Tablet) 30 mg PO BEDTIME [facility] Last Admin: 05/19/22 20:20 Dose: 30 mg Senna (Sennosides 8.6 Mg Tablet) 17.2 mg PO BEDTIME PRN PRN Reason: constipation Tamsulosin HCl (Tamsulosin Hcl 0.4 Mg Capsule) 0.4 mg PO DAILY [facility] Last Admin: 05/20/22 08:36 Dose: 0.4 mg Trazodone HCl (Trazodone Hcl 50 Mg Tablet) 50 mg PO BEDTIME MRX1 PRN PRN Reason: Insomnia Last Admin: 05/19/22 20:21 Dose: 50 mg Venlafaxine HCl (Venlafaxine Hcl Er 75 Mg Cap.Er.24h) 75 mg PO DAILY [facility] Last Admin: 05/20/22 08:36 Dose: 75 mg Vortioxetine (Vortioxetine Hydrobromide 10 Mg Tablet) 10 mg PO DAILY [facility] Last Admin: 05/20/22 08:36 Dose: 10 mg Allergies Allergies Allergy/AdvReac Type Severity Reaction Status Date / Time levofloxacin [From Levaquin] Allergy Rash Verified 05/08/22 07:07 Penicillins Allergy Rash Verified 05/08/22 07:07 Assessment & Plan Assessment & Plan (1) Major depressive disorder with psychotic features: Status: Acute Code(s): F32.3 - Major depressive disorder, single episode, severe with psychotic features Plan 72-year-old male with history of anxiety/depression, glaucoma, hypercholesterolemia, hypertension recently treated for UTI admitted to [facility] psych with consult placed to Medicine for ECT evaluation. #MDD -Plan per psychiatry -Has undergone ect in past without adverse effect. At this time, there exists no medical contraindication for patient to receive ECT at this time Thank you for allowing me to participate in this consult. Signing off at this time. Please do not hesitate to call for further questions. Plan 1. Continue with same treatment. 2. Continue ECT with regular right unilateral. Now changed to twice a week 3. Reassessment with results. 4. Increase Trintellix up to 20 mg p.o. daily starting tomorrow May 21. Reason for contiued inpatient stay Substantial Risk for: inability to function, rapid decompensation and med/psych decompensation Time Spent With Patient Time: Total time managing care of this patient today __20__ minutes.
[2022-05-20 18:00] VITALS: BP 153/74; PULSE 80; RESP 14; TEMP 37.1; O2SAT 97
[2022-05-20] MEDS: Melatonin 3 MG TABLET 6 MG PO (20:59)
[2022-05-20] MEDS: Atorvastatin Calcium 20 MG TABLET PO (20:59)
[2022-05-20] MEDS: cloZAPine 100 MG TABLET 200 MG PO (20:59)
[2022-05-20] MEDS: traZODone HCL 50 MG TABLET PO (21:00)
[2022-05-20] MEDS: Lithium Carbonate ER 300 MG TABLET.ER 600 MG PO (21:00)
[2022-05-20] MEDS: Mirtazapine 30 MG TABLET PO (21:00)
[2022-05-21 06:00] VITALS: BP 164/81; PULSE 89; RESP 16; TEMP 35.9; O2SAT 97
[2022-05-21 07:00] VITALS: BMI 27.9
[2022-05-21] MEDS: LORazepam 0.5 MG TABLET PO ×2 (09:09→14:30)
[2022-05-21] MEDS: Finasteride 5 MG TABLET PO (09:09)
[2022-05-21] MEDS: Vortioxetine Hydrobromide 20 MG TABLET PO (09:09)
[2022-05-21] MEDS: Tamsulosin HCL 0.4 MG CAPSULE PO (09:09)
[2022-05-21] MEDS: Venlafaxine HCl ER 75 MG CAP.ER.24H PO (09:09)
--- NOTE | 2022-05-21 10:25 | P.PNPSI_ITS ---
Subjective Subjective Date of Service: 05/21/22 Reason For Visit: MDD Recurrent Episode Severe PTSD Subjective Notes: Conditional Voluntary Interim History: The nursing staff reported the patient had been compliant with treatment, he slept well last night and his appetite is normal. The occupational therapist reported that he looks more organized and awaken dalila ups. On interview, the patient denies depression he is feeling good and he is feeling hopeful that ECT is helping. Yesterday I increased his Trintellix up to 20 mg daily to target depression. So far no side effects. Mental Status Exam Mental Status Exam Patient Appearance: Well Grooomed and Appropriate Patient Orientation: Person and Situation Level of Consciousness: Awake and Appropriate Patient Behavior: Guarded and Passive Mood Description: Calm Affect Description: Constricted Patient Cognition Impaired: Yes Ability to Follow Directions: Good Speech Pattern: Clear Hallucinations: None Delusions: Not Present Thought Process: Distracted and Slowed Thinking Thought Content: positive for [place] and positive for Poverty of Content Judgement: Fair Diagnostics Vital Signs (24Hr): Vital Signs - 24 hr 05/20/22 18:00 05/21/22 06:00 Temperature 98.7 F 96.7 F L Pulse Rate 80 89 Respiratory Rate 14 16 Blood Pressure 153/74 H 164/81 H Pulse Oximetry 97 97 Oxygen Delivery Method Room Air Room Air BMI result Body Mass Index 27.9 Labs 05/05/22 07:54 05/05/22 07:54 Labs: Laboratory Results - last 48 hr 05/19/22 19:27 POC Glucose 133 H Imaging Radiology Impressions: ITS Impressions Brain MRI 04/24/22 09:39 IMPRESSION: - No acute intracranial findings. No acute infarcts. - There is global cerebral volume loss and there is mild chronic microangiopathy. Medications Medications Current Medications Acetaminophen (Acetaminophen 325 Mg Tablet) 650 mg PO Q6H PRN PRN Reason: Headache/Pain Mild Scale (1-3) Last Admin: 05/18/22 17:39 Dose: 650 mg Al Hydroxide/Mg Hydroxide (Magnesium Hydrox/Alum Hydrox 30 Ml Oral.Susp) 30 ml PO Q6H PRN PRN Reason: Heartburn/Nausea Atorvastatin Calcium (Atorvastatin Calcium 20 Mg Tablet) 20 mg PO BEDTIME [facility] Last Admin: 05/20/22 20:59 Dose: 20 mg Clozapine (Clozapine 100 Mg Tablet) 200 mg PO BEDTIME [facility] Last Admin: 05/20/22 20:59 Dose: 200 mg Finasteride (Finasteride 5 Mg Tablet) 5 mg PO DAILY [facility] Last Admin: 05/21/22 09:09 Dose: 5 mg [place] Carbonate ([place] Carbonate Er 300 Mg Tablet.Er) 600 mg PO BEDTIME [facility] Last Admin: 05/20/22 21:00 Dose: 600 mg Lorazepam (Lorazepam 0.5 Mg Tablet) 0.5 mg PO TID [facility] Last Admin: 05/21/22 09:09 Dose: 0.5 mg Lorazepam (Lorazepam 1 Mg Tablet) 1 mg PO Q4H PRN PRN Reason: agitation Last Admin: 05/16/22 23:08 Dose: 1 mg Magnesium Hydroxide (Milk Of Magnesia 30 Ml Oral.Susp) 30 ml PO DAILY PRN PRN Reason: Constipation Melatonin (Melatonin 3 Mg Tablet) 6 mg PO BEDTIME [facility] Last Admin: 05/20/22 20:59 Dose: 6 mg Mirtazapine (Mirtazapine 30 Mg Tablet) 30 mg PO BEDTIME [facility] Last Admin: 05/20/22 21:00 Dose: 30 mg Senna (Sennosides 8.6 Mg Tablet) 17.2 mg PO BEDTIME PRN PRN Reason: constipation Tamsulosin HCl (Tamsulosin Hcl 0.4 Mg Capsule) 0.4 mg PO DAILY [facility] Last Admin: 05/21/22 09:09 Dose: 0.4 mg Trazodone HCl (Trazodone Hcl 50 Mg Tablet) 50 mg PO BEDTIME MRX1 PRN PRN Reason: Insomnia Last Admin: 05/20/22 21:00 Dose: 50 mg Venlafaxine HCl (Venlafaxine Hcl Er 75 Mg Cap.Er.24h) 75 mg PO DAILY [facility] Last Admin: 05/21/22 09:09 Dose: 75 mg Vortioxetine (Vortioxetine Hydrobromide 20 Mg Tablet) 20 mg PO DAILY [facility] Last Admin: 05/21/22 09:09 Dose: 20 mg Allergies Allergies Allergy/AdvReac Type Severity Reaction Status Date / Time levofloxacin [From Levaquin] Allergy Rash Verified 05/08/22 07:07 Penicillins Allergy Rash Verified 05/08/22 07:07 Assessment & Plan Assessment & Plan (1) Major depressive disorder with psychotic features: Status: Acute Code(s): F32.3 - Major depressive disorder, single episode, severe with psychotic features Plan 72-year-old male with history of anxiety/depression, glaucoma, hypercholesterolemia, hypertension recently treated for UTI admitted to [facility] psych with consult placed to Medicine for ECT evaluation. #MDD -Plan per psychiatry -Has undergone ect in past without adverse effect. At this time, there exists no medical contraindication for patient to receive ECT at this time Thank you for allowing me to participate in this consult. Signing off at this time. Please do not hesitate to call for further questions. Plan 1. Continue with same treatment. 2. Continue ECT with regular right unilateral. Now changed to twice a week 3. Reassessment with results. 4. Increase Trintellix up to 20 mg p.o. daily starting May 21. Reason for contiued inpatient stay Substantial Risk for: inability to function, rapid decompensation and med/psych decompensation Time Spent With Patient Time: Total time managing care of this patient today __20__ minutes.
[2022-05-21 16:33] VITALS: BP 154/76; PULSE 76; RESP 16; TEMP 36.7; O2SAT 97
[2022-05-21] MEDS: cloZAPine 100 MG TABLET 200 MG PO (20:18)
[2022-05-21] MEDS: Atorvastatin Calcium 20 MG TABLET PO (20:18)
[2022-05-21] MEDS: Melatonin 3 MG TABLET 6 MG PO (20:18)
[2022-05-21] MEDS: Mirtazapine 30 MG TABLET PO (20:18)
[2022-05-21] MEDS: Lithium Carbonate ER 300 MG TABLET.ER 600 MG PO (20:18)
[2022-05-22] VITALS (10 sets, daily range): BP systolic 140–171; BP diastolic 79–97; PULSE 73–89; RESP 12–20; TEMP 36.6–37.3; O2SAT 94–97
--- NOTE | 2022-05-22 06:53 | HO.ANESPROP2 ---
[facility] Active Problems Active Problems: All Active Problems (Updated 05/05/22 @ 18:15 by GENE Carey) Routine medical exam (Acute) UTI (urinary tract infection) (Acute) Routine history and physical examination of adult (Acute) Major depressive disorder with psychotic features (Acute) Past Medical History Medical History Anxiety Depression Glaucoma Hypercholesteremia Hypertension Laceration of abdomen Laceration of chest Laceration of wrist UTI (urinary tract infection) Family History Family history of problems with anesthesia: No Surgical History Surgical History History of laparotomy History of Problems with Anesthesia: No Social History Social History Household Members: Spouse Housing: House Are you a primary director of career resources to a significant other at home: No Do you presently have visiting nurse or other home services: No Patient Tobacco Use Status: Former Tobacco user Quit Date: 03/2200 Tobacco use type: Cigarette and Cigar Smoked in Last 30 Days: No e-Cigarette/Vaping Use: Never Used Patient Interested in Nicotine Replacement: No Use of substances other than those prescribed or required for medical reasons: No Currently Displaying Signs/Symptoms of Drug Intoxication Withdrawal: No Any prior treatment program specific to substance use: No Are you DNR?: No Advance Directives: No Advance Directives Information Provided: No Suicidal Behavior: History of suicide attemps Current/Past Psychiatric Disorders: Alcohol abuse, Chronic mental illess and Mood disorder Phan Symptoms: Impulsivity Family History: Attempts Change in Treatment: Change in provider Access to Firearms: No Do you have thoughts of harming others: None Do you have a plan to hurt others: No Plan Do you have the means to hurt others: Yes (pervasive thoughts of using kitchen knife to harm/kill and self) Recently lost weight without trying: No Nutrition Risks: No Nutritional Risk service: No Sexual orientation: Straight/Heterosexual Gender identity: Male Meds Allergies Allergy/AdvReac Type Severity Reaction Status Date / Time levofloxacin [From Levaquin] Allergy Rash Verified 05/08/22 07:07 Penicillins Allergy Rash Verified 05/08/22 07:07 Active Medications: Current Medications Acetaminophen (Acetaminophen 325 Mg Tablet) 650 mg PO Q6H PRN PRN Reason: Headache/Pain Mild Scale (1-3) Last Admin: 05/18/22 17:39 Dose: 650 mg Al Hydroxide/Mg Hydroxide (Magnesium Hydrox/Alum Hydrox 30 Ml Oral.Susp) 30 ml PO Q6H PRN PRN Reason: Heartburn/Nausea Atorvastatin Calcium (Atorvastatin Calcium 20 Mg Tablet) 20 mg PO BEDTIME [facility] Last Admin: 05/21/22 20:18 Dose: 20 mg Clozapine (Clozapine 100 Mg Tablet) 200 mg PO BEDTIME [facility] Last Admin: 05/21/22 20:18 Dose: 200 mg Finasteride (Finasteride 5 Mg Tablet) 5 mg PO DAILY [facility] Last Admin: 05/21/22 09:09 Dose: 5 mg [employer] [place] Carbonate ([employer] [place] Carbonate Er 300 Mg Tablet.Er) 600 mg PO BEDTIME [facility] Last Admin: 05/21/22 20:18 Dose: 600 mg Lorazepam (Lorazepam 0.5 Mg Tablet) 0.5 mg PO TID [facility] Last Admin: 05/21/22 16:15 Dose: Not Given Lorazepam (Lorazepam 1 Mg Tablet) 1 mg PO Q4H PRN PRN Reason: agitation Last Admin: 05/16/22 23:08 Dose: 1 mg Magnesium Hydroxide (Milk Of Magnesia 30 Ml Oral.Susp) 30 ml PO DAILY PRN PRN Reason: Constipation Melatonin (Melatonin 3 Mg Tablet) 6 mg PO BEDTIME [facility] Last Admin: 05/21/22 20:18 Dose: 6 mg Mirtazapine (Mirtazapine 30 Mg Tablet) 30 mg PO BEDTIME [facility] Last Admin: 05/21/22 20:18 Dose: 30 mg Senna (Sennosides 8.6 Mg Tablet) 17.2 mg PO BEDTIME PRN PRN Reason: constipation Tamsulosin HCl (Tamsulosin Hcl 0.4 Mg Capsule) 0.4 mg PO DAILY [facility] Last Admin: 05/21/22 09:09 Dose: 0.4 mg Trazodone HCl (Trazodone Hcl 50 Mg Tablet) 50 mg PO BEDTIME MRX1 PRN PRN Reason: Insomnia Last Admin: 05/20/22 21:00 Dose: 50 mg Venlafaxine HCl (Venlafaxine Hcl Er 75 Mg Cap.Er.24h) 75 mg PO DAILY [facility] Last Admin: 05/21/22 09:09 Dose: 75 mg Vortioxetine (Vortioxetine Hydrobromide 20 Mg Tablet) 20 mg PO DAILY [facility] Last Admin: 05/21/22 09:09 Dose: 20 mg Home Medications Medication Instructions Recorded Confirmed Last Taken Type clozapine 50 mg tablet 1 tab PO BEDTIME 04/11/22 04/11/22 04/10/22 History finasteride 5 mg tablet 1 tab PO DAILY 04/11/22 04/11/22 Unknown History lithium carbonate 300 mg 1 tab PO BEDTIME 04/11/22 04/11/22 04/10/22 History tablet,extended release mirtazapine 30 mg tablet 1 tab PO BEDTIME 04/11/22 04/11/22 Unknown History tamsulosin 0.4 mg capsule 1 cap PO DAILY 04/11/22 04/11/22 Unknown History venlafaxine 75 mg capsule,extended 1 cap PO QAM 04/11/22 04/11/22 Unknown History release 24 hr Exam Exam Date and Time: May 22, 2022 0653 Height,Weight and Vital Signs: Height 5 ft 6 in Weight 78.471 kg Last Vital Signs Temp 98 F 05/22/22 06:45 Pulse 75 05/22/22 06:45 Resp 16 05/22/22 06:45 BP 149/88 H 05/22/22 06:45 Pulse Ox 94 05/22/22 06:45 O2 Del Method Room Air 05/22/22 06:45 O2 Flow Rate 2 05/18/22 08:17 Pertinent Lab Results Pertinent Lab Results: Laboratory Tests 04/11/22 04/11/22 04/11/22 08:42 20:09 20:09 WBC RBC Hgb Hct MCV MCH MCHC RDW Plt Count MPV Immature Gran % (Auto) Neut % (Auto) Lymph % (Auto) [place] % (Auto) Eos % (Auto) Baso % (Auto) Lymph # (Auto) [place] # (Auto) Eos # (Auto) Baso # (Auto) Abs Immat Gran (auto) Absolute Neuts (auto) 3.7 Absolute Nucleated RBC Nucleated RBC % (auto) Sodium 144 Potassium 4.4 Chloride 112 H Carbon Dioxide 25 Anion Gap 11 L BUN 11 Creatinine 1.06 Estim Creat Clear Calc 63.2 Estimated GFR > 60 POC Glucose Random Glucose 165 H Fasting Glucose Estimat Average Glucose 108 Hemoglobin A1c % 5.4 Calcium 8.7 Total Bilirubin 0.5 Direct Bilirubin 0.2 AST 13 ALT 17 Alkaline Phosphatase 79 Total Protein 5.3 L Albumin 3.4 L Triglycerides 122 Cholesterol 100 LDL Cholesterol, Calc 47 HDL Cholesterol 29 Vitamin B12 505 Folate 14.5 TSH 2.24 Urine Color Urine Appearance Urine pH Ur Specific [place] Urine Protein Urine Glucose (UA) Urine Ketones Urine Blood Urine Nitrite Ur Leukocyte Esterase Urine RBC Urine WBC Ur Squamous Epith Cells Urine Bacteria Hyaline Casts Clozapine Norclozapine [employer] 04/11/22 04/16/22 04/16/22 20:09 08:12 08:12 WBC RBC Hgb Hct MCV MCH MCHC RDW Plt Count MPV Immature Gran % (Auto) Neut % (Auto) Lymph % (Auto) [place] % (Auto) Eos % (Auto) Baso % (Auto) Lymph # (Auto) [place] # (Auto) Eos # (Auto) Baso # (Auto) Abs Immat Gran (auto) Absolute Neuts (auto) Absolute Nucleated RBC Nucleated RBC % (auto) Sodium 142 Potassium 4.3 Chloride 109 H Carbon Dioxide 27 Anion Gap 10 L BUN 12 Creatinine 0.99 Estim Creat Clear Calc 67.7 Estimated GFR > 60 POC Glucose Random Glucose 151 H Fasting Glucose Estimat Average Glucose Hemoglobin A1c % Calcium 9.0 Total Bilirubin Direct Bilirubin AST ALT Alkaline Phosphatase Total Protein Albumin Triglycerides Cholesterol LDL Cholesterol, Calc HDL Cholesterol Vitamin B12 Folate TSH 3.41 Urine Color Urine Appearance Urine pH Ur Specific [place] Urine Protein Urine Glucose (UA) Urine Ketones Urine Blood Urine Nitrite Ur Leukocyte Esterase Urine RBC Urine WBC Ur Squamous Epith Cells Urine Bacteria Hyaline Casts Clozapine Norclozapine [employer] [place] 0.48 L 0.77 04/18/22 04/22/22 04/22/22 06:54 09:15 14:25 WBC RBC Hgb Hct MCV MCH MCHC RDW Plt Count MPV Immature Gran % (Auto) Neut % (Auto) Lymph % (Auto) [place] % (Auto) Eos % (Auto) Baso % (Auto) Lymph # (Auto) [place] # (Auto) Eos # (Auto) Baso # (Auto) Abs Immat Gran (auto) Absolute Neuts (auto) 4.8 Absolute Nucleated RBC Nucleated RBC % (auto) Sodium 142 Potassium 3.9 Chloride 110 H Carbon Dioxide 27 Anion Gap 9 L BUN 13 Creatinine 1.07 Estim Creat Clear Calc 62.6 Estimated GFR > 60 POC Glucose Random Glucose 190 H Fasting Glucose Estimat Average Glucose Hemoglobin A1c % Calcium 8.7 Total Bilirubin 0.6 Direct Bilirubin AST 16 ALT 29 Alkaline Phosphatase 72 Total Protein 5.2 L Albumin 3.5 Triglycerides Cholesterol LDL Cholesterol, Calc HDL Cholesterol Vitamin B12 Folate TSH Urine Color Yellow Urine Appearance Clear Urine pH 6.5 Ur Specific [place] <= 1.005 Urine Protein Negative Urine Glucose (UA) Negative Urine Ketones Negative Urine Blood Trace H Urine Nitrite Negative Ur Leukocyte Esterase Large (3+) H Urine RBC 0-2 Urine WBC >50 H Ur Squamous Epith Cells 0-2 Urine Bacteria None Seen Hyaline Casts 0-2 Clozapine [address]clozapine [employer] 04/25/22 04/30/22 04/30/22 03:33 07:45 07:45 WBC RBC Hgb Hct MCV MCH MCHC RDW Plt Count MPV Immature Gran % (Auto) Neut % (Auto) Lymph % (Auto) [place] % (Auto) Eos % (Auto) Baso % (Auto) Lymph # (Auto) [place] # (Auto) Eos # (Auto) Baso # (Auto) Abs Immat Gran (auto) Absolute Neuts (auto) 3.7 Absolute Nucleated RBC Nucleated RBC % (auto) Sodium Potassium Chloride Carbon Dioxide Anion Gap BUN Creatinine Estim Creat Clear Calc Estimated GFR POC Glucose Random Glucose Fasting Glucose Estimat Average Glucose 105 Hemoglobin A1c % 5.3 Calcium Total Bilirubin Direct Bilirubin AST ALT Alkaline Phosphatase Total Protein Albumin Triglycerides Cholesterol LDL Cholesterol, Calc HDL Cholesterol Vitamin B12 Folate TSH Urine Color Urine Appearance Urine pH Ur Specific [place] Urine Protein Urine Glucose (UA) Urine Ketones Urine Blood Urine Nitrite Ur Leukocyte Esterase Urine RBC Urine WBC Ur Squamous Epith Cells Urine Bacteria Hyaline Casts Clozapine 338 Norclozapine 216 [employer] 05/01/22 05/01/22 05/02/22 07:07 07:07 06:07 WBC RBC Hgb Hct MCV MCH MCHC RDW Plt Count MPV Immature Gran % (Auto) Neut % (Auto) Lymph % (Auto) [place] % (Auto) Eos % (Auto) Baso % (Auto) Lymph # (Auto) [place] # (Auto) Eos # (Auto) Baso # (Auto) Abs Immat Gran (auto) Absolute Neuts (auto) 2.8 Absolute Nucleated RBC Nucleated RBC % (auto) Sodium 141 Potassium 4.4 Chloride 110 H Carbon Dioxide 27 Anion Gap 8 L BUN 15 Creatinine 0.98 Estim Creat Clear Calc 69.2 Estimated GFR > 60 POC Glucose Random Glucose 105 Fasting Glucose Estimat Average Glucose Hemoglobin A1c % Calcium 8.8 Total Bilirubin Direct Bilirubin AST ALT Alkaline Phosphatase Total Protein Albumin Triglycerides Cholesterol LDL Cholesterol, Calc HDL Cholesterol Vitamin B12 Folate TSH 3.76 Urine Color Urine Appearance Urine pH Ur Specific [place] Urine Protein Urine Glucose (UA) Urine Ketones Urine Blood Urine Nitrite Ur Leukocyte Esterase Urine RBC Urine WBC Ur Squamous Epith Cells Urine Bacteria Hyaline Casts Clozapine Norclozapine [employer] [place] 0.88 05/05/22 05/05/22 05/09/22 07:54 07:54 08:11 WBC 5.8 RBC 4.61 Hgb 13.7 L Hct 43.1 MCV 93.5 MCH 29.7 MCHC 31.8 RDW 12.8 Plt Count 207 MPV 9.0 L Immature Gran % (Auto) 0.3 Neut % (Auto) 55.4 Lymph % (Auto) 32.2 [place] % (Auto) 9.7 Eos % (Auto) 1.9 Baso % (Auto) 0.5 Lymph # (Auto) 1.9 [place] # (Auto) 0.6 Eos # (Auto) 0.1 Baso # (Auto) 0.0 Abs Immat Gran (auto) 0.02 Absolute Neuts (auto) 3.2 4.1 Absolute Nucleated RBC 0.000 Nucleated RBC % (auto) 0.0 Sodium 141 Potassium 4.3 Chloride 107 Carbon Dioxide 28 Anion Gap 10 L BUN 17 H Creatinine 1.03 Estim Creat Clear Calc 65.9 Estimated GFR > 60 POC Glucose Random Glucose Fasting Glucose 130 H Estimat Average Glucose Hemoglobin A1c % Calcium 9.0 Total Bilirubin 0.9 Direct Bilirubin AST 18 ALT 37 Alkaline Phosphatase 90 Total Protein 5.6 L Albumin 3.8 Triglycerides Cholesterol LDL Cholesterol, Calc HDL Cholesterol Vitamin B12 Folate TSH Urine Color Urine Appearance Urine pH Ur Specific [place] Urine Protein Urine Glucose (UA) Urine Ketones Urine Blood Urine Nitrite Ur Leukocyte Esterase Urine RBC Urine WBC Ur Squamous Epith Cells Urine Bacteria Hyaline Casts Clozapine Norclozapine [employer] 05/16/22 05/18/22 05/19/22 06:40 09:10 19:27 WBC RBC Hgb Hct MCV MCH MCHC RDW Plt Count MPV Immature Gran % (Auto) Neut % (Auto) Lymph % (Auto) [place] % (Auto) Eos % (Auto) Baso % (Auto) Lymph # (Auto) [place] # (Auto) Eos # (Auto) Baso # (Auto) Abs Immat Gran (auto) Absolute Neuts (auto) 3.6 Absolute Nucleated RBC Nucleated RBC % (auto) Sodium Potassium Chloride Carbon Dioxide Anion Gap BUN Creatinine Estim Creat Clear Calc Estimated GFR POC Glucose 133 H Random Glucose Fasting Glucose Estimat Average Glucose Hemoglobin A1c % Calcium Total Bilirubin Direct Bilirubin AST ALT Alkaline Phosphatase Total Protein Albumin Triglycerides Cholesterol LDL Cholesterol, Calc HDL Cholesterol Vitamin B12 Folate TSH Urine Color Yellow Urine Appearance Clear Urine pH 6.5 Ur Specific [place] 1.015 Urine Protein Negative Urine Glucose (UA) Negative Urine Ketones Negative Urine Blood Negative Urine Nitrite Negative Ur Leukocyte Esterase Negative Urine RBC 0-2 Urine WBC 0-5 Ur Squamous Epith Cells 0-2 Urine Bacteria None Seen Hyaline Casts 0-2 Clozapine Norclozapine [employer] [place] Airway Mallampati Class: II TM Dist: >3cm Neck ROM: Full Heart: rrr Lungs: cta Assessment and Plan Assessment Anesthesia Assessment: Anesthesia Plan Discussed and Chart Reviewed Final Anesthetic Review Family History of Problems with Anesthesia: No History of Problems with Anesthesia: No NPO: Yes ASA Class: III Final Preanesthetic Review: No Changes in Pt Med Stat, Meds/Allgs Chart Reviewed and Consent Obtained/Reviewed Patient Risk: Intermediate Procedure Risk: Intermediate Anesthetic Plan Anesthetic Plan: GA Disposition: Standard PACU
--- NOTE | 2022-05-22 07:45 | MHC.SHP ---
Pre-Procedural Eval Section A Date of Service: 05/22/22 Changes since office visit: Yes Changes in Medication and Yes Patient answered all questions; No Cold of Flu in the past 2 weeks and No New Medical Problems The History & Physical has been completed within 30 days and I have reviewed it.: Yes Section B Chief Complaint: MDD Recurrent Episode Severe PTSD Allergies: Allergies Allergy/AdvReac Type Severity Reaction Status Date / Time levofloxacin [From Levaquin] Allergy Rash Verified 05/08/22 07:07 Penicillins Allergy Rash Verified 05/08/22 07:07 Plan I have reviewed the history and physical and performed a pertinent physical examination on my patient. No changes have occurred unless specified. Time Spent With Patient Time: Total time managing care of this patient today ____ minutes.
--- NOTE | 2022-05-22 07:47 | HO.ECTPROC ---
ECT Procedure Note Diagnosis/Treatment Date of Service: 05/24/22 Diagnosis: Schizoaffective Disorder Previous ECT Date: 05/18/22 Current Treatment Number: 7 Treatment: Series Interval Clinical Notes: .pt less depressed no c/o side effects Time: Total time managing care of this patient today ____ minutes. ECT Settings Device: THYMATRON DGx Electrode Placement: Right Unilateral Program/Pulse Width: 0.50 Energy Percent: 100 Seizure Duration By EEG (in seconds): 15 By Motor Observation (in seconds): 0 Medications Administration General Anesthetic: Etomidate (14) Muscle Relaxant: Succinylcholine (100) Ancillary Medications Anti-emetics: Zofran - Pre ECT Airway Management Airway Management: Bag Mask Ventilation Treatment Recommendations Notes: hold lithium nite prior consider flumazenil consider change to bf Pt Tolerated Procedure w/o Issue: Yes
[2022-05-22] MEDS: Tamsulosin HCL 0.4 MG CAPSULE PO (12:36)
[2022-05-22] MEDS: Venlafaxine HCl ER 75 MG CAP.ER.24H PO (12:36)
[2022-05-22] MEDS: LORazepam 0.5 MG TABLET PO ×3 (12:36→20:16)
[2022-05-22] MEDS: Finasteride 5 MG TABLET PO (12:36)
[2022-05-22] MEDS: Vortioxetine Hydrobromide 20 MG TABLET PO (12:37)
--- NOTE | 2022-05-22 14:04 | HO.PSYCHPN ---
Subjective Subjective Date of Service: 05/22/22 Reason For Visit: MDD Recurrent Episode Severe PTSD Subjective Notes: Conditional Voluntary Interim History: The nursing staff reported the patient has been isolative, he ate well and he slept well last night. He denies suicidal ideation he reports feeling safe in the community. Today he had an ECT and he came back. He has been slightly confused and after lunch we were able to contact him. He reports that he is feeling okay but he looks pleasantly confused. We will reassess him after ECT in a few hours Mental Status Exam Mental Status Exam Patient Appearance: Well Grooomed and Appropriate Patient Orientation: Person and Situation Level of Consciousness: Awake and Appropriate Patient Behavior: Guarded and Passive Mood Description: Calm Affect Description: Constricted Patient Cognition Impaired: Yes Ability to Follow Directions: Good Speech Pattern: Clear Hallucinations: None Delusions: Not Present Thought Process: Distracted, Evasive and Slowed Thinking Thought Content: positive for [place] and positive for Circumstantial Judgement: Fair Diagnostics Vital Signs (24Hr): Vital Signs - 24 hr 05/21/22 16:33 05/22/22 05:56 05/22/22 05:57 Temperature 98.0 F 99.1 F 99.1 F Pulse Rate 76 77 77 Respiratory Rate 16 12 12 Blood Pressure 154/76 H 158/91 H 158/91 H Pulse Oximetry 97 96 96 Oxygen Delivery Method Room Air Room Air Oxygen Flow Rate 05/22/22 06:45 05/22/22 08:09 05/22/22 08:14 Temperature 98 F 98.5 F Pulse Rate 75 89 82 Respiratory Rate 16 20 20 Blood Pressure 149/88 H 171/96 H 149/97 H Pulse Oximetry 94 95 95 Oxygen Delivery Method Room Air Nasal Cannula with ETCO2 Nasal Cannula with ETCO2 Oxygen Flow Rate 2 2 05/22/22 08:19 05/22/22 08:24 05/22/22 08:39 Temperature Pulse Rate 82 83 83 Respiratory Rate 20 18 18 Blood Pressure 140/97 H 151/90 H 149/88 H Pulse Oximetry 97 96 95 Oxygen Delivery Method Nasal Cannula with ETCO2 Room Air Room Air Oxygen Flow Rate 2 05/22/22 08:54 Temperature 97.8 F Pulse Rate 83 Respiratory Rate 18 Blood Pressure 141/90 H Pulse Oximetry 96 Oxygen Delivery Method Room Air Oxygen Flow Rate BMI result Body Mass Index 27.9 Labs 05/05/22 07:54 05/05/22 07:54 Imaging Radiology Impressions: ITS Impressions Brain MRI 04/24/22 09:39 IMPRESSION: - No acute intracranial findings. No acute infarcts. - There is global cerebral volume loss and there is mild chronic microangiopathy. Medications Medications Current Medications Acetaminophen (Acetaminophen 325 Mg Tablet) 650 mg PO Q6H PRN PRN Reason: Headache/Pain Mild Scale (1-3) Last Admin: 05/18/22 17:39 Dose: 650 mg Al Hydroxide/Mg Hydroxide (Magnesium Hydrox/Alum Hydrox 30 Ml Oral.Susp) 30 ml PO Q6H PRN PRN Reason: Heartburn/Nausea Atorvastatin Calcium (Atorvastatin Calcium 20 Mg Tablet) 20 mg PO BEDTIME [facility] Last Admin: 05/21/22 20:18 Dose: 20 mg Clozapine (Clozapine 100 Mg Tablet) 200 mg PO BEDTIME [facility] Last Admin: 05/21/22 20:18 Dose: 200 mg Finasteride (Finasteride 5 Mg Tablet) 5 mg PO DAILY [facility] Last Admin: 05/22/22 12:36 Dose: 5 mg [place] Carbonate ([place] Carbonate Er 300 Mg Tablet.Er) 600 mg PO BEDTIME [facility] Last Admin: 05/21/22 20:18 Dose: 600 mg Lorazepam (Lorazepam 0.5 Mg Tablet) 0.5 mg PO TID [facility] Last Admin: 05/22/22 12:36 Dose: 0.5 mg Lorazepam (Lorazepam 1 Mg Tablet) 1 mg PO Q4H PRN PRN Reason: agitation Last Admin: 05/16/22 23:08 Dose: 1 mg Magnesium Hydroxide (Milk Of Magnesia 30 Ml Oral.Susp) 30 ml PO DAILY PRN PRN Reason: Constipation Melatonin (Melatonin 3 Mg Tablet) 6 mg PO BEDTIME [facility] Last Admin: 05/21/22 20:18 Dose: 6 mg Mirtazapine (Mirtazapine 30 Mg Tablet) 30 mg PO BEDTIME [facility] Last Admin: 05/21/22 20:18 Dose: 30 mg Senna (Sennosides 8.6 Mg Tablet) 17.2 mg PO BEDTIME PRN PRN Reason: constipation Tamsulosin HCl (Tamsulosin Hcl 0.4 Mg Capsule) 0.4 mg PO DAILY [facility] Last Admin: 05/22/22 12:36 Dose: 0.4 mg Trazodone HCl (Trazodone Hcl 50 Mg Tablet) 50 mg PO BEDTIME MRX1 PRN PRN Reason: Insomnia Last Admin: 05/20/22 21:00 Dose: 50 mg Venlafaxine HCl (Venlafaxine Hcl Er 75 Mg Cap.Er.24h) 75 mg PO DAILY [facility] Last Admin: 05/22/22 12:36 Dose: 75 mg Vortioxetine (Vortioxetine Hydrobromide 20 Mg Tablet) 20 mg PO DAILY [facility] Last Admin: 05/22/22 12:37 Dose: 20 mg Allergies Allergies Allergy/AdvReac Type Severity Reaction Status Date / Time levofloxacin [From Levaquin] Allergy Rash Verified 05/08/22 07:07 Penicillins Allergy Rash Verified 05/08/22 07:07 Assessment & Plan Assessment & Plan (1) Major depressive disorder with psychotic features: Status: Acute Code(s): F32.3 - Major depressive disorder, single episode, severe with psychotic features Plan 72-year-old male with history of anxiety/depression, glaucoma, hypercholesterolemia, hypertension recently treated for UTI admitted to [facility] psych with consult placed to Medicine for ECT evaluation. #MDD -Plan per psychiatry -Has undergone ect in past without adverse effect. At this time, there exists no medical contraindication for patient to receive ECT at this time Thank you for allowing me to participate in this consult. Signing off at this time. Please do not hesitate to call for further questions. Plan 1. Continue with same treatment. 2. Continue ECT with regular right unilateral. Now changed to twice a week 3. Reassessment with results. 4. Increase Trintellix up to 20 mg p.o. daily starting May 21. Reason for contiued inpatient stay Substantial Risk for: inability to function, rapid decompensation and med/psych decompensation Time Spent With Patient Time: Total time managing care of this patient today _20___ minutes.
[2022-05-22] MEDS: Melatonin 3 MG TABLET 6 MG PO (20:16)
[2022-05-22] MEDS: Mirtazapine 30 MG TABLET PO (20:16)
[2022-05-22] MEDS: Lithium Carbonate ER 300 MG TABLET.ER 600 MG PO (20:16)
[2022-05-22] MEDS: Atorvastatin Calcium 20 MG TABLET PO (20:16)
[2022-05-22] MEDS: cloZAPine 100 MG TABLET 200 MG PO (20:16)
[2022-05-23 06:00] VITALS: BP 130/73; PULSE 76; RESP 18; TEMP 37.4; O2SAT 95
[2022-05-23 07:35] LABS: Neut%MD 55.5 %; Neutrophils Absolute Auto 3.4 x10*3/uL (2.0-8.3); WBCANC 6.1 X10*3/uL
[2022-05-23] MEDS: Finasteride 5 MG TABLET PO (08:16)
[2022-05-23] MEDS: Tamsulosin HCL 0.4 MG CAPSULE PO (08:16)
[2022-05-23] MEDS: Venlafaxine HCl ER 75 MG CAP.ER.24H PO (08:16)
[2022-05-23] MEDS: LORazepam 0.5 MG TABLET PO ×3 (08:16→19:50)
[2022-05-23] MEDS: Vortioxetine Hydrobromide 20 MG TABLET PO (08:16)
--- NOTE | 2022-05-23 15:39 | P.PNPSI_ITS ---
Subjective Subjective Date of Service: 05/23/22 Reason For Visit: MDD Recurrent Episode Severe PTSD Interim History: Met with patient; reviewed chart; discussed with team Patient reports that he is good following ECT treatments. He says he has no sense of feeling depressed. Patient feels much more clear minded and that his thinking is better. No complaints and no requests Mental Status Exam Mental Status Exam Patient Appearance: Well Grooomed and Appropriate Patient Orientation: Person and Situation Level of Consciousness: Awake and Appropriate Patient Behavior: Guarded and Passive Mood Description: Calm Affect Description: Constricted Patient Cognition Impaired: Yes Ability to Follow Directions: Good Speech Pattern: Clear Hallucinations: None Delusions: Not Present Thought Process: Distracted, Evasive and Slowed Thinking Thought Content: positive for [place] and positive for Circumstantial Judgement: Fair Diagnostics Vital Signs (24Hr): Vital Signs - 24 hr 05/22/22 18:00 05/23/22 06:00 Temperature 98.2 F 99.4 F Pulse Rate 73 76 Respiratory Rate 16 18 Blood Pressure 150/79 H 130/73 Pulse Oximetry 97 95 Oxygen Delivery Method Room Air Room Air BMI result Body Mass Index 27.9 Labs 05/05/22 07:54 05/05/22 07:54 Labs: Laboratory Results - last 48 hr 05/23/22 07:27 Absolute Neuts (auto) 3.4 Imaging Radiology Impressions: ITS Impressions Brain MRI 04/24/22 09:39 IMPRESSION: - No acute intracranial findings. No acute infarcts. - There is global cerebral volume loss and there is mild chronic microangiopathy. Medications Medications Current Medications Acetaminophen (Acetaminophen 325 Mg Tablet) 650 mg PO Q6H PRN PRN Reason: Headache/Pain Mild Scale (1-3) Last Admin: 05/18/22 17:39 Dose: 650 mg Al Hydroxide/Mg Hydroxide (Magnesium Hydrox/Alum Hydrox 30 Ml Oral.Susp) 30 ml PO Q6H PRN PRN Reason: Heartburn/Nausea Atorvastatin Calcium (Atorvastatin Calcium 20 Mg Tablet) 20 mg PO BEDTIME [facility] Last Admin: 05/22/22 20:16 Dose: 20 mg Clozapine (Clozapine 100 Mg Tablet) 200 mg PO BEDTIME [facility] Last Admin: 05/22/22 20:16 Dose: 200 mg Finasteride (Finasteride 5 Mg Tablet) 5 mg PO DAILY [facility] Last Admin: 05/23/22 08:16 Dose: 5 mg [place] Carbonate ([place] Carbonate Er 300 Mg Tablet.Er) 600 mg PO BEDTIME [facility] Last Admin: 05/22/22 20:16 Dose: 600 mg Lorazepam (Lorazepam 0.5 Mg Tablet) 0.5 mg PO TID [facility] Last Admin: 05/23/22 14:29 Dose: 0.5 mg Lorazepam (Lorazepam 1 Mg Tablet) 1 mg PO Q4H PRN PRN Reason: agitation Last Admin: 05/16/22 23:08 Dose: 1 mg Magnesium Hydroxide (Milk Of Magnesia 30 Ml Oral.Susp) 30 ml PO DAILY PRN PRN Reason: Constipation Melatonin (Melatonin 3 Mg Tablet) 6 mg PO BEDTIME [facility] Last Admin: 05/22/22 20:16 Dose: 6 mg Mirtazapine (Mirtazapine 30 Mg Tablet) 30 mg PO BEDTIME [facility] Last Admin: 05/22/22 20:16 Dose: 30 mg Senna (Sennosides 8.6 Mg Tablet) 17.2 mg PO BEDTIME PRN PRN Reason: constipation Tamsulosin HCl (Tamsulosin Hcl 0.4 Mg Capsule) 0.4 mg PO DAILY [facility] Last Admin: 05/23/22 08:16 Dose: 0.4 mg Trazodone HCl (Trazodone Hcl 50 Mg Tablet) 50 mg PO BEDTIME MRX1 PRN PRN Reason: Insomnia Last Admin: 05/20/22 21:00 Dose: 50 mg Venlafaxine HCl (Venlafaxine Hcl Er 75 Mg Cap.Er.24h) 75 mg PO DAILY [facility] Last Admin: 05/23/22 08:16 Dose: 75 mg Vortioxetine (Vortioxetine Hydrobromide 20 Mg Tablet) 20 mg PO DAILY [facility] Last Admin: 05/23/22 08:16 Dose: 20 mg Allergies Allergies Allergy/AdvReac Type Severity Reaction Status Date / Time levofloxacin [From Levaquin] Allergy Rash Verified 05/08/22 07:07 Penicillins Allergy Rash Verified 05/08/22 07:07 Assessment & Plan Assessment & Plan (1) Major depressive disorder with psychotic features: Status: Acute Code(s): F32.3 - Major depressive disorder, single episode, severe with psychotic features Plan 72-year-old male with history of anxiety/depression, glaucoma, hypercholesterolemia, hypertension recently treated for UTI admitted to [facility] psych with consult placed to Medicine for ECT evaluation. hospital course: 05/23 patient reports good and that depression is gone; feeling more clear minded; continue current regimen Plan 1. Continue with same treatment. 2. Continue ECT with regular right unilateral. Now changed to twice a week 3. Reassessment with results. 4. Increase Trintellix up to 20 mg p.o. daily starting May 21. Patient educated on: diagnosis and ECT Informed Consent: understands Reason for contiued inpatient stay Substantial Risk for: med/psych decompensation Time Spent With Patient Time: Total time managing care of this patient today ____ minutes.
[2022-05-23 18:00] VITALS: BP 110/79; PULSE 80; RESP 17; TEMP 36.6; O2SAT 97
[2022-05-23] MEDS: Atorvastatin Calcium 20 MG TABLET PO (19:49)
[2022-05-23] MEDS: Lithium Carbonate ER 300 MG TABLET.ER 600 MG PO (19:49)
[2022-05-23] MEDS: cloZAPine 100 MG TABLET 200 MG PO (19:49)
[2022-05-23] MEDS: Melatonin 3 MG TABLET 6 MG PO (19:50)
[2022-05-23] MEDS: Mirtazapine 30 MG TABLET PO (19:50)
[2022-05-24 06:00] VITALS: BP 124/64; PULSE 80; RESP 16; TEMP 36.9; O2SAT 97
[2022-05-24] MEDS: Vortioxetine Hydrobromide 20 MG TABLET PO (08:09)
[2022-05-24] MEDS: LORazepam 0.5 MG TABLET PO ×3 (08:09→20:47)
[2022-05-24] MEDS: Finasteride 5 MG TABLET PO (08:09)
[2022-05-24] MEDS: Venlafaxine HCl ER 75 MG CAP.ER.24H PO (08:09)
[2022-05-24] MEDS: Tamsulosin HCL 0.4 MG CAPSULE PO (08:09)
--- NOTE | 2022-05-24 16:16 | P.PNPSI_ITS ---
Subjective Subjective Date of Service: 05/24/22 Reason For Visit: MDD Recurrent Episode Severe PTSD Interim History: Met with patient; discussed with team remains in good mood, no complaints and depression remains resolved; anticipating ECT tomorrow Mental Status Exam Mental Status Exam Patient Appearance: Well Grooomed and Appropriate Patient Orientation: Person and Situation Level of Consciousness: Awake and Appropriate Patient Behavior: Guarded and Passive Mood Description: Calm Affect Description: Constricted Patient Cognition Impaired: Yes Ability to Follow Directions: Good Speech Pattern: Clear Hallucinations: None Delusions: Not Present Thought Process: Distracted, Evasive and Slowed Thinking Thought Content: positive for [place] and positive for Circumstantial Judgement: Fair Diagnostics Vital Signs (24Hr): Vital Signs - 24 hr 05/23/22 18:00 05/24/22 06:00 Temperature 98 F 98.5 F Pulse Rate 80 80 Respiratory Rate 17 16 Blood Pressure 110/79 124/64 Pulse Oximetry 97 97 Oxygen Delivery Method Room Air Room Air BMI result Body Mass Index 27.9 Labs 05/05/22 07:54 05/05/22 07:54 Labs: Laboratory Results - last 48 hr 05/23/22 07:27 Absolute Neuts (auto) 3.4 Imaging Radiology Impressions: ITS Impressions Brain MRI 04/24/22 09:39 IMPRESSION: - No acute intracranial findings. No acute infarcts. - There is global cerebral volume loss and there is mild chronic microangiopathy. Medications Medications Current Medications Acetaminophen (Acetaminophen 325 Mg Tablet) 650 mg PO Q6H PRN PRN Reason: Headache/Pain Mild Scale (1-3) Last Admin: 05/18/22 17:39 Dose: 650 mg Al Hydroxide/Mg Hydroxide (Magnesium Hydrox/Alum Hydrox 30 Ml Oral.Susp) 30 ml PO Q6H PRN PRN Reason: Heartburn/Nausea Atorvastatin Calcium (Atorvastatin Calcium 20 Mg Tablet) 20 mg PO BEDTIME [facility] Last Admin: 05/23/22 19:49 Dose: 20 mg Clozapine (Clozapine 100 Mg Tablet) 200 mg PO BEDTIME [facility] Last Admin: 05/23/22 19:49 Dose: 200 mg Finasteride (Finasteride 5 Mg Tablet) 5 mg PO DAILY [facility] Last Admin: 05/24/22 08:09 Dose: 5 mg [place] Carbonate ([place] Carbonate Er 300 Mg Tablet.Er) 600 mg PO BEDTIME [facility] Last Admin: 05/23/22 19:49 Dose: 600 mg Lorazepam (Lorazepam 0.5 Mg Tablet) 0.5 mg PO TID [facility] Last Admin: 05/24/22 14:46 Dose: 0.5 mg Lorazepam (Lorazepam 1 Mg Tablet) 1 mg PO Q4H PRN PRN Reason: agitation Last Admin: 05/16/22 23:08 Dose: 1 mg Magnesium Hydroxide (Milk Of Magnesia 30 Ml Oral.Susp) 30 ml PO DAILY PRN PRN Reason: Constipation Melatonin (Melatonin 3 Mg Tablet) 6 mg PO BEDTIME [facility] Last Admin: 05/23/22 19:50 Dose: 6 mg Mirtazapine (Mirtazapine 30 Mg Tablet) 30 mg PO BEDTIME [facility] Last Admin: 05/23/22 19:50 Dose: 30 mg Senna (Sennosides 8.6 Mg Tablet) 17.2 mg PO BEDTIME PRN PRN Reason: constipation Tamsulosin HCl (Tamsulosin Hcl 0.4 Mg Capsule) 0.4 mg PO DAILY [facility] Last Admin: 05/24/22 08:09 Dose: 0.4 mg Trazodone HCl (Trazodone Hcl 50 Mg Tablet) 50 mg PO BEDTIME MRX1 PRN PRN Reason: Insomnia Last Admin: 05/20/22 21:00 Dose: 50 mg Venlafaxine HCl (Venlafaxine Hcl Er 75 Mg Cap.Er.24h) 75 mg PO DAILY [facility] Last Admin: 05/24/22 08:09 Dose: 75 mg Vortioxetine (Vortioxetine Hydrobromide 20 Mg Tablet) 20 mg PO DAILY [facility] Last Admin: 05/24/22 08:09 Dose: 20 mg Allergies Allergies Allergy/AdvReac Type Severity Reaction Status Date / Time levofloxacin [From Levaquin] Allergy Rash Verified 05/08/22 07:07 Penicillins Allergy Rash Verified 05/08/22 07:07 Assessment & Plan Assessment & Plan (1) Major depressive disorder with psychotic features: Status: Acute Code(s): F32.3 - Major depressive disorder, single episode, severe with psychotic features Plan 72-year-old male with history of anxiety/depression, glaucoma, hypercholesterolemia, hypertension recently treated for UTI admitted to [facility] psych with consult placed to Medicine for ECT evaluation. hospital course: 05/23 patient reports good and that depression is gone; feeling more clear minded; continue current regimen 05/24 continue current tx plan -npo after midnight -ECT on 05/25 (confirmed by Dr. Womack) Plan 1. Continue with same treatment. 2. Continue ECT with regular right unilateral. Now changed to twice a week 3. Reassessment with results. 4. Increase Trintellix up to 20 mg p.o. daily starting May 21. Patient educated on: diagnosis and ECT Informed Consent: understands Reason for contiued inpatient stay Substantial Risk for: med/psych decompensation Time Spent With Patient Time: Total time managing care of this patient today ____ minutes.
[2022-05-24 18:00] VITALS: BP 140/78; PULSE 80; RESP 14; TEMP 36.1; O2SAT 98
[2022-05-24] MEDS: Atorvastatin Calcium 20 MG TABLET PO (20:46)
[2022-05-24] MEDS: Lithium Carbonate ER 300 MG TABLET.ER 600 MG PO (20:46)
[2022-05-24] MEDS: cloZAPine 100 MG TABLET 200 MG PO (20:46)
[2022-05-24] MEDS: Mirtazapine 30 MG TABLET PO (20:47)
[2022-05-24] MEDS: traZODone HCL 50 MG TABLET PO (20:47)
[2022-05-24] MEDS: Melatonin 3 MG TABLET 6 MG PO (20:47)
[2022-05-25] VITALS (9 sets, daily range): BP systolic 123–158; BP diastolic 69–91; PULSE 74–98; RESP 16–20; TEMP 36.4–37.1; O2SAT 96–100
--- NOTE | 2022-05-25 07:47 | P.CONAN_ITS ---
[facility] Active Problems Active Problems: All Active Problems (Updated 05/05/22 @ 18:15 by GENE Carey) Routine medical exam (Acute) UTI (urinary tract infection) (Acute) Routine history and physical examination of adult (Acute) Major depressive disorder with psychotic features (Acute) Past Medical History Medical History Anxiety Depression Glaucoma Hypercholesteremia Hypertension Laceration of abdomen Laceration of chest Laceration of wrist UTI (urinary tract infection) Family History Family history of problems with anesthesia: No Surgical History Surgical History History of laparotomy History of Problems with Anesthesia: No Social History Social History Household Members: Spouse Housing: House Are you a primary pet care assistant to a significant other at home: No Do you presently have visiting nurse or other home services: No Patient Tobacco Use Status: Former Tobacco user Quit Date: 03/2200 Tobacco use type: Cigarette and Cigar Smoked in Last 30 Days: No e-Cigarette/Vaping Use: Never Used Patient Interested in Nicotine Replacement: No Use of substances other than those prescribed or required for medical reasons: No Currently Displaying Signs/Symptoms of Drug Intoxication Withdrawal: No Any prior treatment program specific to substance use: No Are you DNR?: No Advance Directives: No Advance Directives Information Provided: No Suicidal Behavior: History of suicide attemps Current/Past Psychiatric Disorders: Alcohol abuse, Chronic mental illess and Mood disorder Phan Symptoms: Impulsivity Family History: Attempts Change in Treatment: Change in provider Access to Firearms: No Do you have thoughts of harming others: None Do you have a plan to hurt others: No Plan Do you have the means to hurt others: Yes (pervasive thoughts of using kitchen knife to harm/kill and self) Recently lost weight without trying: No Nutrition Risks: No Nutritional Risk service: No Sexual orientation: Straight/Heterosexual Gender identity: Male Meds Allergies Allergy/AdvReac Type Severity Reaction Status Date / Time levofloxacin [From Levaquin] Allergy Rash Verified 05/08/22 07:07 Penicillins Allergy Rash Verified 05/08/22 07:07 Active Medications: Current Medications Acetaminophen (Acetaminophen 325 Mg Tablet) 650 mg PO Q6H PRN PRN Reason: Headache/Pain Mild Scale (1-3) Last Admin: 05/18/22 17:39 Dose: 650 mg Al Hydroxide/Mg Hydroxide (Magnesium Hydrox/Alum Hydrox 30 Ml Oral.Susp) 30 ml PO Q6H PRN PRN Reason: Heartburn/Nausea Atorvastatin Calcium (Atorvastatin Calcium 20 Mg Tablet) 20 mg PO BEDTIME [facility] Last Admin: 05/24/22 20:46 Dose: 20 mg Clozapine (Clozapine 100 Mg Tablet) 200 mg PO BEDTIME [facility] Last Admin: 05/24/22 20:46 Dose: 200 mg Finasteride (Finasteride 5 Mg Tablet) 5 mg PO DAILY [facility] Last Admin: 05/24/22 08:09 Dose: 5 mg Lactated Ringer's (Lr) 1,000 mls @ 50 mls/hr IVCONT .Q20H [facility] Lactated Ringer's (Lr) 1,000 mls @ 50 mls/hr IVCONT .Q20H DI[facility] [place] Carbonate ([place] Carbonate Er 300 Mg Tablet.Er) 600 mg PO BEDTIME [facility] Last Admin: 05/24/22 20:46 Dose: 600 mg Lorazepam (Lorazepam 0.5 Mg Tablet) 0.5 mg PO TID [facility] Last Admin: 05/24/22 20:47 Dose: 0.5 mg Lorazepam (Lorazepam 1 Mg Tablet) 1 mg PO Q4H PRN PRN Reason: agitation Last Admin: 05/16/22 23:08 Dose: 1 mg Magnesium Hydroxide (Milk Of Magnesia 30 Ml Oral.Susp) 30 ml PO DAILY PRN PRN Reason: Constipation Melatonin (Melatonin 3 Mg Tablet) 6 mg PO BEDTIME [facility] Last Admin: 05/24/22 20:47 Dose: 6 mg Mirtazapine (Mirtazapine 30 Mg Tablet) 30 mg PO BEDTIME [facility] Last Admin: 05/24/22 20:47 Dose: 30 mg Senna (Sennosides 8.6 Mg Tablet) 17.2 mg PO BEDTIME PRN PRN Reason: constipation Tamsulosin HCl (Tamsulosin Hcl 0.4 Mg Capsule) 0.4 mg PO DAILY [facility] Last Admin: 05/24/22 08:09 Dose: 0.4 mg Trazodone HCl (Trazodone Hcl 50 Mg Tablet) 50 mg PO BEDTIME MRX1 PRN PRN Reason: Insomnia Last Admin: 05/24/22 20:47 Dose: 50 mg Venlafaxine HCl (Venlafaxine Hcl Er 75 Mg Cap.Er.24h) 75 mg PO DAILY [facility] Last Admin: 05/24/22 08:09 Dose: 75 mg Vortioxetine (Vortioxetine Hydrobromide 20 Mg Tablet) 20 mg PO DAILY [facility] Last Admin: 05/24/22 08:09 Dose: 20 mg Home Medications Medication Instructions Recorded Confirmed Last Taken Type clozapine 50 mg tablet 1 tab PO BEDTIME 04/11/22 04/11/22 04/10/22 History finasteride 5 mg tablet 1 tab PO DAILY 04/11/22 04/11/22 Unknown History lithium carbonate 300 mg 1 tab PO BEDTIME 04/11/22 04/11/22 04/10/22 History tablet,extended release mirtazapine 30 mg tablet 1 tab PO BEDTIME 04/11/22 04/11/22 Unknown History tamsulosin 0.4 mg capsule 1 cap PO DAILY 04/11/22 04/11/22 Unknown History venlafaxine 75 mg capsule,extended 1 cap PO QAM 04/11/22 04/11/22 Unknown History release 24 hr Exam Exam Date and Time: May 25, 2022 0747 Height,Weight and Vital Signs: Height 5 ft 6 in Weight 78.471 kg Last Vital Signs Temp 97.6 F 05/25/22 06:32 Pulse 74 05/25/22 06:32 Resp 16 05/25/22 06:32 BP 156/84 H 05/25/22 06:32 Pulse Ox 96 05/25/22 06:32 O2 Del Method Room Air 05/25/22 06:32 O2 Flow Rate 2 05/22/22 08:19 i Pertinent Lab Results Pertinent Lab Results: Laboratory Tests 04/11/22 04/11/22 04/11/22 08:42 20:09 20:09 WBC RBC Hgb Hct MCV MCH MCHC RDW Plt Count MPV Immature Gran % (Auto) Neut % (Auto) Lymph % (Auto) [place] % (Auto) Eos % (Auto) Baso % (Auto) Lymph # (Auto) [place] # (Auto) Eos # (Auto) Baso # (Auto) Abs Immat Gran (auto) Absolute Neuts (auto) 3.7 Absolute Nucleated RBC Nucleated RBC % (auto) Sodium 144 Potassium 4.4 Chloride 112 H Carbon Dioxide 25 Anion Gap 11 L BUN 11 Creatinine 1.06 Estim Creat Clear Calc 63.2 Estimated GFR > 60 POC Glucose Random Glucose 165 H Fasting Glucose Estimat Average Glucose 108 Hemoglobin A1c % 5.4 Calcium 8.7 Total Bilirubin 0.5 Direct Bilirubin 0.2 AST 13 ALT 17 Alkaline Phosphatase 79 Total Protein 5.3 L Albumin 3.4 L Triglycerides 122 Cholesterol 100 LDL Cholesterol, Calc 47 HDL Cholesterol 29 Vitamin B12 505 Folate 14.5 TSH 2.24 Urine Color Urine Appearance Urine pH Ur Specific [place] Urine Protein Urine Glucose (UA) Urine Ketones Urine Blood Urine Nitrite Ur Leukocyte Esterase Urine RBC Urine WBC Ur Squamous Epith Cells Urine Bacteria Hyaline Casts Clozapine Norclozapine [place] 04/11/22 04/16/22 04/16/22 20:09 08:12 08:12 WBC RBC Hgb Hct MCV MCH MCHC RDW Plt Count MPV Immature Gran % (Auto) Neut % (Auto) Lymph % (Auto) [place] % (Auto) Eos % (Auto) Baso % (Auto) Lymph # (Auto) [place] # (Auto) Eos # (Auto) Baso # (Auto) Abs Immat Gran (auto) Absolute Neuts (auto) Absolute Nucleated RBC Nucleated RBC % (auto) Sodium 142 Potassium 4.3 Chloride 109 H Carbon Dioxide 27 Anion Gap 10 L BUN 12 Creatinine 0.99 Estim Creat Clear Calc 67.7 Estimated GFR > 60 POC Glucose Random Glucose 151 H Fasting Glucose Estimat Average Glucose Hemoglobin A1c % Calcium 9.0 Total Bilirubin Direct Bilirubin AST ALT Alkaline Phosphatase Total Protein Albumin Triglycerides Cholesterol LDL Cholesterol, Calc HDL Cholesterol Vitamin B12 Folate TSH 3.41 Urine Color Urine Appearance Urine pH Ur Specific [place] Urine Protein Urine Glucose (UA) Urine Ketones Urine Blood Urine Nitrite Ur Leukocyte Esterase Urine RBC Urine WBC Ur Squamous Epith Cells Urine Bacteria Hyaline Casts Clozapine Norclozapine [place] 0.48 L 0.77 04/18/22 04/22/22 04/22/22 06:54 09:15 14:25 WBC RBC Hgb Hct MCV MCH MCHC RDW Plt Count MPV Immature Gran % (Auto) Neut % (Auto) Lymph % (Auto) [place] % (Auto) Eos % (Auto) Baso % (Auto) Lymph # (Auto) [place] # (Auto) Eos # (Auto) Baso # (Auto) Abs Immat Gran (auto) Absolute Neuts (auto) 4.8 Absolute Nucleated RBC Nucleated RBC % (auto) Sodium 142 Potassium 3.9 Chloride 110 H Carbon Dioxide 27 Anion Gap 9 L BUN 13 Creatinine 1.07 Estim Creat Clear Calc 62.6 Estimated GFR > 60 POC Glucose Random Glucose 190 H Fasting Glucose Estimat Average Glucose Hemoglobin A1c % Calcium 8.7 Total Bilirubin 0.6 Direct Bilirubin AST 16 ALT 29 Alkaline Phosphatase 72 Total Protein 5.2 L Albumin 3.5 Triglycerides Cholesterol LDL Cholesterol, Calc HDL Cholesterol Vitamin B12 Folate TSH Urine Color Yellow Urine Appearance Clear Urine pH 6.5 Ur Specific [place] <= 1.005 Urine Protein Negative Urine Glucose (UA) Negative Urine Ketones Negative Urine Blood Trace H Urine Nitrite Negative Ur Leukocyte Esterase Large (3+) H Urine RBC 0-2 Urine WBC >50 H Ur Squamous Epith Cells 0-2 Urine Bacteria None Seen Hyaline Casts 0-2 Clozapine Norclozapine [place] 04/25/22 04/30/22 04/30/22 03:33 07:45 07:45 WBC RBC Hgb Hct MCV MCH MCHC RDW Plt Count MPV Immature Gran % (Auto) Neut % (Auto) Lymph % (Auto) [place] % (Auto) Eos % (Auto) Baso % (Auto) Lymph # (Auto) [place] # (Auto) Eos # (Auto) Baso # (Auto) Abs Immat Gran (auto) Absolute Neuts (auto) 3.7 Absolute Nucleated RBC Nucleated RBC % (auto) Sodium Potassium Chloride Carbon Dioxide Anion Gap BUN Creatinine Estim Creat Clear Calc Estimated GFR POC Glucose Random Glucose Fasting Glucose Estimat Average Glucose 105 Hemoglobin A1c % 5.3 Calcium Total Bilirubin Direct Bilirubin AST ALT Alkaline Phosphatase Total Protein Albumin Triglycerides Cholesterol LDL Cholesterol, Calc HDL Cholesterol Vitamin B12 Folate TSH Urine Color Urine Appearance Urine pH Ur Specific [place] Urine Protein Urine Glucose (UA) Urine Ketones Urine Blood Urine Nitrite Ur Leukocyte Esterase Urine RBC Urine WBC Ur Squamous Epith Cells Urine Bacteria Hyaline Casts Clozapine 338 Norclozapine 216 [place] 05/01/22 05/01/22 05/02/22 07:07 07:07 06:07 WBC RBC Hgb Hct MCV MCH MCHC RDW Plt Count MPV Immature Gran % (Auto) Neut % (Auto) Lymph % (Auto) [place] % (Auto) Eos % (Auto) Baso % (Auto) Lymph # (Auto) [place] # (Auto) Eos # (Auto) Baso # (Auto) Abs Immat Gran (auto) Absolute Neuts (auto) 2.8 Absolute Nucleated RBC Nucleated RBC % (auto) Sodium 141 Potassium 4.4 Chloride 110 H Carbon Dioxide 27 Anion Gap 8 L BUN 15 Creatinine 0.98 Estim Creat Clear Calc 69.2 Estimated GFR > 60 POC Glucose Random Glucose 105 Fasting Glucose Estimat Average Glucose Hemoglobin A1c % Calcium 8.8 Total Bilirubin Direct Bilirubin AST ALT Alkaline Phosphatase Total Protein Albumin Triglycerides Cholesterol LDL Cholesterol, Calc HDL Cholesterol Vitamin B12 Folate TSH 3.76 Urine Color Urine Appearance Urine pH Ur Specific [place] Urine Protein Urine Glucose (UA) Urine Ketones Urine Blood Urine Nitrite Ur Leukocyte Esterase Urine RBC Urine WBC Ur Squamous Epith Cells Urine Bacteria Hyaline Casts Clozapine Norclozapine [place] 0.88 05/05/22 05/05/22 05/09/22 07:54 07:54 08:11 WBC 5.8 RBC 4.61 Hgb 13.7 L Hct 43.1 MCV 93.5 MCH 29.7 MCHC 31.8 RDW 12.8 Plt Count 207 MPV 9.0 L Immature Gran % (Auto) 0.3 Neut % (Auto) 55.4 Lymph % (Auto) 32.2 [place] % (Auto) 9.7 Eos % (Auto) 1.9 Baso % (Auto) 0.5 Lymph # (Auto) 1.9 [place] # (Auto) 0.6 Eos # (Auto) 0.1 Baso # (Auto) 0.0 Abs Immat Gran (auto) 0.02 Absolute Neuts (auto) 3.2 4.1 Absolute Nucleated RBC 0.000 Nucleated RBC % (auto) 0.0 Sodium 141 Potassium 4.3 Chloride 107 Carbon Dioxide 28 Anion Gap 10 L BUN 17 H Creatinine 1.03 Estim Creat Clear Calc 65.9 Estimated GFR > 60 POC Glucose Random Glucose Fasting Glucose 130 H Estimat Average Glucose Hemoglobin A1c % Calcium 9.0 Total Bilirubin 0.9 Direct Bilirubin AST 18 ALT 37 Alkaline Phosphatase 90 Total Protein 5.6 L Albumin 3.8 Triglycerides Cholesterol LDL Cholesterol, Calc HDL Cholesterol Vitamin B12 Folate TSH Urine Color Urine Appearance Urine pH Ur Specific [place] Urine Protein Urine Glucose (UA) Urine Ketones Urine Blood Urine Nitrite Ur Leukocyte Esterase Urine RBC Urine WBC Ur Squamous Epith Cells Urine Bacteria Hyaline Casts Clozapine Norclozapine [place] 05/16/22 05/18/22 05/19/22 06:40 09:10 19:27 WBC RBC Hgb Hct MCV MCH MCHC RDW Plt Count MPV Immature Gran % (Auto) Neut % (Auto) Lymph % (Auto) [place] % (Auto) Eos % (Auto) Baso % (Auto) Lymph # (Auto) [place] # (Auto) Eos # (Auto) Baso # (Auto) Abs Immat Gran (auto) Absolute Neuts (auto) 3.6 Absolute Nucleated RBC Nucleated RBC % (auto) Sodium Potassium Chloride Carbon Dioxide Anion Gap BUN Creatinine Estim Creat Clear Calc Estimated GFR POC Glucose 133 H Random Glucose Fasting Glucose Estimat Average Glucose Hemoglobin A1c % Calcium Total Bilirubin Direct Bilirubin AST ALT Alkaline Phosphatase Total Protein Albumin Triglycerides Cholesterol LDL Cholesterol, Calc HDL Cholesterol Vitamin B12 Folate TSH Urine Color Yellow Urine Appearance Clear Urine pH 6.5 Ur Specific [place] 1.015 Urine Protein Negative Urine Glucose (UA) Negative Urine Ketones Negative Urine Blood Negative Urine Nitrite Negative Ur Leukocyte Esterase Negative Urine RBC 0-2 Urine WBC 0-5 Ur Squamous Epith Cells 0-2 Urine Bacteria None Seen Hyaline Casts 0-2 Clozapine Norclozapine [place] 05/23/22 07:27 WBC RBC Hgb Hct MCV MCH MCHC RDW Plt Count MPV Immature Gran % (Auto) Neut % (Auto) Lymph % (Auto) [place] % (Auto) Eos % (Auto) Baso % (Auto) Lymph # (Auto) [place] # (Auto) Eos # (Auto) Baso # (Auto) Abs Immat Gran (auto) Absolute Neuts (auto) 3.4 Absolute Nucleated RBC Nucleated RBC % (auto) Sodium Potassium Chloride Carbon Dioxide Anion Gap BUN Creatinine Estim Creat Clear Calc Estimated GFR POC Glucose Random Glucose Fasting Glucose Estimat Average Glucose Hemoglobin A1c % Calcium Total Bilirubin Direct Bilirubin AST ALT Alkaline Phosphatase Total Protein Albumin Triglycerides Cholesterol LDL Cholesterol, Calc HDL Cholesterol Vitamin B12 Folate TSH Urine Color Urine Appearance Urine pH Ur Specific [place] Urine Protein Urine Glucose (UA) Urine Ketones Urine Blood Urine Nitrite Ur Leukocyte Esterase Urine RBC Urine WBC Ur Squamous Epith Cells Urine Bacteria Hyaline Casts Clozapine Norclozapine [place] Airway Mallampati Class: II TM Dist: >3cm Neck ROM: Full Heart: rrr Lungs: cta Assessment and Plan Assessment Anesthesia Assessment: Anesthesia Plan Discussed and Chart Reviewed Final Anesthetic Review Family History of Problems with Anesthesia: No History of Problems with Anesthesia: No NPO: Yes ASA Class: III Final Preanesthetic Review: No Changes in Pt Med Stat, Meds/Allgs Chart Reviewed and Consent Obtained/Reviewed Patient Risk: Intermediate Procedure Risk: Intermediate Anesthetic Plan Anesthetic Plan: GA Disposition: Standard PACU
--- NOTE | 2022-05-25 07:48 | MHC.SHP ---
Pre-Procedural Eval Section A Date of Service: 05/25/22 The patient is an INPATIENT: Yes Changes since office visit: Yes Patient answered all questions; No Cold of Flu in the past 2 weeks, No New Medical Problems and No Changes in Medication Section B Chief Complaint: MDD Recurrent Episode Severe PTSD Allergies: Allergies Allergy/AdvReac Type Severity Reaction Status Date / Time levofloxacin [From Levaquin] Allergy Rash Verified 05/08/22 07:07 Penicillins Allergy Rash Verified 05/08/22 07:07 Plan I have reviewed the history and physical and performed a pertinent physical examination on my patient. No changes have occurred unless specified. Time Spent With Patient Time: Total time managing care of this patient today ____ minutes.
--- NOTE | 2022-05-25 07:48 | HO.ECTPROC ---
ECT Procedure Note Diagnosis/Treatment Date of Service: 05/27/22 Diagnosis: Schizoaffective Disorder Previous ECT Date: 05/18/22 Current Treatment Number: 8 Treatment: Series Interval Clinical Notes: .pt less depressed st memory effects noted Time: Total time managing care of this patient today ____ minutes. ECT Settings Device: THYMATRON DGx Electrode Placement: Right Unilateral Program/Pulse Width: 0.50 Energy Percent: 100 Seizure Duration By EEG (in seconds): 22 Medications Administration General Anesthetic: Etomidate (14) Muscle Relaxant: Succinylcholine (100) Ancillary Medications Anti-emetics: Zofran - Pre ECT Miscillaneous Medications: Flumazenil (500 mcg ) Airway Management Airway Management: Bag Mask Ventilation Treatment Recommendations Notes: hold lithium nite prior consider flumazenil consider change to bf again hyperventilate decrease etom to 12 mg Pt Tolerated Procedure w/o Issue: Yes
[2022-05-25] MEDS: Venlafaxine HCl ER 75 MG CAP.ER.24H PO (09:19)
[2022-05-25] MEDS: Vortioxetine Hydrobromide 20 MG TABLET PO (09:19)
[2022-05-25] MEDS: Tamsulosin HCL 0.4 MG CAPSULE PO (09:19)
[2022-05-25] MEDS: LORazepam 0.5 MG TABLET PO ×3 (09:20→20:33)
[2022-05-25] MEDS: Finasteride 5 MG TABLET PO (10:03)
--- NOTE | 2022-05-25 13:09 | HO.PSYCHPN ---
Subjective Subjective Date of Service: 05/25/22 Reason For Visit: MDD Recurrent Episode Severe PTSD Subjective Notes: Conditional Voluntary Interim History: The nursing staff reported the patient had been on fused after ECT that he had today. On interview the patient was slightly sedated denies active suicidal ideation. Mental Status Exam Mental Status Exam Patient Appearance: Well Grooomed and Appropriate Patient Orientation: Person and Situation Level of Consciousness: Awake and Appropriate Patient Behavior: Guarded and Passive Mood Description: Withdrawn Affect Description: Constricted Patient Cognition Impaired: Yes Ability to Follow Directions: Good Speech Pattern: Clear Hallucinations: None Delusions: Not Present Thought Process: Distracted and Slowed Thinking Thought Content: positive for [place] and positive for Circumstantial Judgement: Fair Diagnostics Vital Signs (24Hr): Vital Signs - 24 hr 05/24/22 18:00 05/25/22 06:32 05/25/22 08:12 Temperature 97 F 97.6 F 98.7 F Pulse Rate 80 74 98 Respiratory Rate 14 16 20 Blood Pressure 140/78 H 156/84 H 158/81 H Pulse Oximetry 98 96 100 Oxygen Delivery Method Room Air Room Air Nasal Cannula with ETCO2 Oxygen Flow Rate 2 05/25/22 08:17 05/25/22 08:22 05/25/22 08:27 Temperature Pulse Rate 82 78 78 Respiratory Rate 17 16 16 Blood Pressure 158/86 H 137/91 H 146/81 H Pulse Oximetry 100 100 98 Oxygen Delivery Method Nasal Cannula with ETCO2 Nasal Cannula with ETCO2 Room Air Oxygen Flow Rate 2 2 05/25/22 08:42 05/25/22 08:57 Temperature 98.2 F Pulse Rate 81 80 Respiratory Rate 18 18 Blood Pressure 149/69 H 136/86 Pulse Oximetry 97 99 Oxygen Delivery Method Room Air Room Air Oxygen Flow Rate BMI result Body Mass Index 27.9 Labs 05/05/22 07:54 05/05/22 07:54 Imaging Radiology Impressions: ITS Impressions Brain MRI 04/24/22 09:39 IMPRESSION: - No acute intracranial findings. No acute infarcts. - There is global cerebral volume loss and there is mild chronic microangiopathy. Medications Medications Current Medications Acetaminophen (Acetaminophen 325 Mg Tablet) 650 mg PO Q6H PRN PRN Reason: Headache/Pain Mild Scale (1-3) Last Admin: 05/18/22 17:39 Dose: 650 mg Al Hydroxide/Mg Hydroxide (Magnesium Hydrox/Alum Hydrox 30 Ml Oral.Susp) 30 ml PO Q6H PRN PRN Reason: Heartburn/Nausea Atorvastatin Calcium (Atorvastatin Calcium 20 Mg Tablet) 20 mg PO BEDTIME [facility] Last Admin: 05/24/22 20:46 Dose: 20 mg Clozapine (Clozapine 100 Mg Tablet) 200 mg PO BEDTIME [facility] Last Admin: 05/24/22 20:46 Dose: 200 mg Finasteride (Finasteride 5 Mg Tablet) 5 mg PO DAILY [facility] Last Admin: 05/25/22 10:03 Dose: 5 mg [place] Carbonate ([place] Carbonate Er 300 Mg Tablet.Er) 600 mg PO BEDTIME [facility] Last Admin: 05/24/22 20:46 Dose: 600 mg Lorazepam (Lorazepam 0.5 Mg Tablet) 0.5 mg PO TID [facility] Last Admin: 05/25/22 09:20 Dose: 0.5 mg Lorazepam (Lorazepam 1 Mg Tablet) 1 mg PO Q4H PRN PRN Reason: agitation Last Admin: 05/16/22 23:08 Dose: 1 mg Magnesium Hydroxide (Milk Of Magnesia 30 Ml Oral.Susp) 30 ml PO DAILY PRN PRN Reason: Constipation Melatonin (Melatonin 3 Mg Tablet) 6 mg PO BEDTIME [facility] Last Admin: 05/24/22 20:47 Dose: 6 mg Mirtazapine (Mirtazapine 30 Mg Tablet) 30 mg PO BEDTIME [facility] Last Admin: 05/24/22 20:47 Dose: 30 mg Senna (Sennosides 8.6 Mg Tablet) 17.2 mg PO BEDTIME PRN PRN Reason: constipation Tamsulosin HCl (Tamsulosin Hcl 0.4 Mg Capsule) 0.4 mg PO DAILY [facility] Last Admin: 05/25/22 09:19 Dose: 0.4 mg Trazodone HCl (Trazodone Hcl 50 Mg Tablet) 50 mg PO BEDTIME MRX1 PRN PRN Reason: Insomnia Last Admin: 05/24/22 20:47 Dose: 50 mg Venlafaxine HCl (Venlafaxine Hcl Er 75 Mg Cap.Er.24h) 75 mg PO DAILY [facility] Last Admin: 05/25/22 09:19 Dose: 75 mg Vortioxetine (Vortioxetine Hydrobromide 20 Mg Tablet) 20 mg PO DAILY [facility] Last Admin: 05/25/22 09:19 Dose: 20 mg Allergies Allergies Allergy/AdvReac Type Severity Reaction Status Date / Time levofloxacin [From Levaquin] Allergy Rash Verified 05/08/22 07:07 Penicillins Allergy Rash Verified 05/08/22 07:07 Assessment & Plan Assessment & Plan (1) Major depressive disorder with psychotic features: Status: Acute Code(s): F32.3 - Major depressive disorder, single episode, severe with psychotic features Plan 72-year-old male with history of anxiety/depression, glaucoma, hypercholesterolemia, hypertension recently treated for UTI admitted to [facility] psych with consult placed to Medicine for ECT evaluation. hospital course: 05/23 patient reports good and that depression is gone; feeling more clear minded; continue current regimen 05/24 continue current tx plan -npo after midnight -ECT on 05/25 (confirmed by Dr. Womack) Plan 1. Continue with same treatment. 2. Continue ECT with regular right unilateral. Now changed to twice a week 3. Reassessment with results. 4. Increase Trintellix up to 20 mg p.o. daily starting May 21. Reason for contiued inpatient stay Substantial Risk for: inability to function, rapid decompensation and med/psych decompensation Time Spent With Patient Time: Total time managing care of this patient today __20__ minutes.
[2022-05-25] MEDS: Melatonin 3 MG TABLET 6 MG PO (20:32)
[2022-05-25] MEDS: Lithium Carbonate ER 300 MG TABLET.ER 600 MG PO (20:33)
[2022-05-25] MEDS: cloZAPine 100 MG TABLET 200 MG PO (20:33)
[2022-05-25] MEDS: Atorvastatin Calcium 20 MG TABLET PO (20:33)
[2022-05-25] MEDS: Mirtazapine 30 MG TABLET PO (20:33)
[2022-05-26 09:34] VITALS: BP 114/80; PULSE 82; RESP 16; TEMP 36.2; O2SAT 100
[2022-05-26] MEDS: Tamsulosin HCL 0.4 MG CAPSULE PO (09:36)
[2022-05-26] MEDS: Venlafaxine HCl ER 75 MG CAP.ER.24H PO (09:36)
[2022-05-26] MEDS: Vortioxetine Hydrobromide 20 MG TABLET PO (09:36)
[2022-05-26] MEDS: LORazepam 0.5 MG TABLET PO ×3 (09:36→21:02)
[2022-05-26] MEDS: Finasteride 5 MG TABLET PO (09:36)
--- NOTE | 2022-05-26 16:52 | HO.PSYCHPN ---
Subjective Subjective Date of Service: 05/26/22 Reason For Visit: MDD Recurrent Episode Severe PTSD Subjective Notes: Conditional Voluntary Interim History: The nursing staff reported the patient has been fully compliant with treatment, he denies anxiety or depression he slept well. After the ECT he was slightly confused but so far he is doing fine. The occupational therapist will do the [place] test on the Emeter[employer] test again since now that he is mood is much better. On interview the patient denies new symptoms he looks better and he denies active suicidal ideation or dysphoria. Even though, he looks internally preoccupied and detached disengaged, the we will try to gather more collateral information from the family Mental Status Exam Mental Status Exam Patient Appearance: Well Grooomed and Appropriate Patient Orientation: Person and Situation Level of Consciousness: Awake and Appropriate Patient Behavior: Guarded and Passive Mood Description: Constricted Affect Description: Blunted Patient Cognition Impaired: Yes Ability to Follow Directions: Good Speech Pattern: Clear Hallucinations: None Delusions: Not Present Thought Process: Linear Thought Content: positive for [place] and positive for Circumstantial Judgement: Fair Diagnostics Vital Signs (24Hr): Vital Signs - 24 hr 05/25/22 18:00 05/26/22 09:34 Temperature 97.9 F 97.1 F Pulse Rate 82 82 Respiratory Rate 16 16 Blood Pressure 123/75 114/80 Pulse Oximetry 96 100 Oxygen Delivery Method Room Air Crystal Room Air BMI result Body Mass Index 27.9 Labs 05/05/22 07:54 05/05/22 07:54 Imaging Radiology Impressions: ITS Impressions Brain MRI 04/24/22 09:39 IMPRESSION: - No acute intracranial findings. No acute infarcts. - There is global cerebral volume loss and there is mild chronic microangiopathy. Medications Medications Current Medications Acetaminophen (Acetaminophen 325 Mg Tablet) 650 mg PO Q6H PRN PRN Reason: Headache/Pain Mild Scale (1-3) Last Admin: 05/18/22 17:39 Dose: 650 mg Al Hydroxide/Mg Hydroxide (Magnesium Hydrox/Alum Hydrox 30 Ml Oral.Susp) 30 ml PO Q6H PRN PRN Reason: Heartburn/Nausea Atorvastatin Calcium (Atorvastatin Calcium 20 Mg Tablet) 20 mg PO BEDTIME [facility] Last Admin: 05/25/22 20:33 Dose: 20 mg Clozapine (Clozapine 100 Mg Tablet) 200 mg PO BEDTIME [facility] Last Admin: 05/25/22 20:33 Dose: 200 mg Finasteride (Finasteride 5 Mg Tablet) 5 mg PO DAILY [facility] Last Admin: 05/26/22 09:36 Dose: 5 mg [place] Carbonate ([place] Carbonate Er 300 Mg Tablet.Er) 600 mg PO BEDTIME [facility] Last Admin: 05/25/22 20:33 Dose: 600 mg Lorazepam (Lorazepam 0.5 Mg Tablet) 0.5 mg PO TID [facility] Last Admin: 05/26/22 14:11 Dose: 0.5 mg Lorazepam (Lorazepam 1 Mg Tablet) 1 mg PO Q4H PRN PRN Reason: agitation Last Admin: 05/16/22 23:08 Dose: 1 mg Magnesium Hydroxide (Milk Of Magnesia 30 Ml Oral.Susp) 30 ml PO DAILY PRN PRN Reason: Constipation Melatonin (Melatonin 3 Mg Tablet) 6 mg PO BEDTIME [facility] Last Admin: 05/25/22 20:32 Dose: 6 mg Mirtazapine (Mirtazapine 30 Mg Tablet) 30 mg PO BEDTIME [facility] Last Admin: 05/25/22 20:33 Dose: 30 mg Senna (Sennosides 8.6 Mg Tablet) 17.2 mg PO BEDTIME PRN PRN Reason: constipation Tamsulosin HCl (Tamsulosin Hcl 0.4 Mg Capsule) 0.4 mg PO DAILY [facility] Last Admin: 05/26/22 09:36 Dose: 0.4 mg Trazodone HCl (Trazodone Hcl 50 Mg Tablet) 50 mg PO BEDTIME MRX1 PRN PRN Reason: Insomnia Last Admin: 05/24/22 20:47 Dose: 50 mg Venlafaxine HCl (Venlafaxine Hcl Er 75 Mg Cap.Er.24h) 75 mg PO DAILY [facility] Last Admin: 05/26/22 09:36 Dose: 75 mg Vortioxetine (Vortioxetine Hydrobromide 20 Mg Tablet) 20 mg PO DAILY [facility] Last Admin: 05/26/22 09:36 Dose: 20 mg Allergies Allergies Allergy/AdvReac Type Severity Reaction Status Date / Time levofloxacin [From Levaquin] Allergy Rash Verified 05/08/22 07:07 Penicillins Allergy Rash Verified 05/08/22 07:07 Assessment & Plan Assessment & Plan (1) Major depressive disorder with psychotic features: Status: Acute Code(s): F32.3 - Major depressive disorder, single episode, severe with psychotic features Plan 72-year-old male with history of anxiety/depression, glaucoma, hypercholesterolemia, hypertension recently treated for UTI admitted to [facility] psych with consult placed to Medicine for ECT evaluation. hospital course: 05/23 patient reports good and that depression is gone; feeling more clear minded; continue current regimen 05/24 continue current tx plan -npo after midnight -ECT on 05/25 (confirmed by Dr. Womack) Plan 1. Continue with same treatment. 2. Continue ECT with regular right unilateral. Now changed to twice a week 3. Reassessment with results. 4. Increase Trintellix up to 20 mg p.o. daily starting May 21. Reason for contiued inpatient stay Substantial Risk for: inability to function, rapid decompensation and med/psych decompensation Time Spent With Patient Time: Total time managing care of this patient today __20__ minutes.
[2022-05-26 18:00] VITALS: BP 121/71; PULSE 76; RESP 16; TEMP 36.4; O2SAT 96
[2022-05-26] MEDS: cloZAPine 100 MG TABLET 200 MG PO (21:01)
[2022-05-26] MEDS: Melatonin 3 MG TABLET 6 MG PO (21:01)
[2022-05-26] MEDS: Atorvastatin Calcium 20 MG TABLET PO (21:02)
[2022-05-26] MEDS: Mirtazapine 30 MG TABLET PO (21:02)
[2022-05-26] MEDS: Lithium Carbonate ER 300 MG TABLET.ER 600 MG PO (21:02)
[2022-05-27 06:00] VITALS: BP 144/84; PULSE 72; RESP 16; TEMP 36.7; O2SAT 94
[2022-05-27] MEDS: Tamsulosin HCL 0.4 MG CAPSULE PO (08:28)
[2022-05-27] MEDS: Vortioxetine Hydrobromide 20 MG TABLET PO (08:28)
[2022-05-27] MEDS: LORazepam 0.5 MG TABLET PO ×3 (08:28→20:27)
[2022-05-27] MEDS: Finasteride 5 MG TABLET PO (08:28)
[2022-05-27] MEDS: Venlafaxine HCl ER 75 MG CAP.ER.24H PO (08:28)
--- NOTE | 2022-05-27 12:43 | P.PNPSI_ITS ---
Subjective Subjective Date of Service: 05/27/22 Reason For Visit: MDD Recurrent Episode Severe PTSD Subjective Notes: Conditional Voluntary Interim History: The nursing staff reported the patient had been compliant with treatment who had been pleasant cooperative but most of the time in his room, he needs encouragement to attend to groups. The social service technician talk with his about possibility of discharge in June 15 with referrals to PHP at a local hospital. On interview the patient denies new symptoms he says that he is doing fine with the current treatment still he looks detached and dysphoric. Mental Status Exam Mental Status Exam Patient Appearance: Appropriate Patient Orientation: Person and Situation Level of Consciousness: Awake and Appropriate Patient Behavior: Guarded and Passive Mood Description: Calm Affect Description: Constricted Patient Cognition Impaired: Yes Ability to Follow Directions: Good Speech Pattern: Clear and Appropriate Hallucinations: None Delusions: Not Present Thought Process: Linear Thought Content: positive for Circumstantial Judgement: Fair Diagnostics Vital Signs (24Hr): Vital Signs - 24 hr 05/26/22 18:00 05/27/22 06:00 Temperature 97.5 F 98.1 F Pulse Rate 76 72 Respiratory Rate 16 16 Blood Pressure 121/71 144/84 H Pulse Oximetry 96 94 Oxygen Delivery Method Room Air Room Air BMI result Body Mass Index 27.9 Labs 05/05/22 07:54 05/05/22 07:54 Imaging Radiology Impressions: ITS Impressions Brain MRI 04/24/22 09:39 IMPRESSION: - No acute intracranial findings. No acute infarcts. - There is global cerebral volume loss and there is mild chronic microangiopathy. Medications Medications Current Medications Acetaminophen (Acetaminophen 325 Mg Tablet) 650 mg PO Q6H PRN PRN Reason: Headache/Pain Mild Scale (1-3) Last Admin: 05/18/22 17:39 Dose: 650 mg Al Hydroxide/Mg Hydroxide (Magnesium Hydrox/Alum Hydrox 30 Ml Oral.Susp) 30 ml PO Q6H PRN PRN Reason: Heartburn/Nausea Atorvastatin Calcium (Atorvastatin Calcium 20 Mg Tablet) 20 mg PO BEDTIME [facility] Last Admin: 05/26/22 21:02 Dose: 20 mg Clozapine (Clozapine 100 Mg Tablet) 200 mg PO BEDTIME [facility] Last Admin: 05/26/22 21:01 Dose: 200 mg Finasteride (Finasteride 5 Mg Tablet) 5 mg PO DAILY [facility] Last Admin: 05/27/22 08:28 Dose: 5 mg [place] Carbonate ([place] Carbonate Er 300 Mg Tablet.Er) 600 mg PO BEDTIME [facility] Last Admin: 05/26/22 21:02 Dose: 600 mg Lorazepam (Lorazepam 0.5 Mg Tablet) 0.5 mg PO TID [facility] Last Admin: 05/27/22 08:28 Dose: 0.5 mg Lorazepam (Lorazepam 1 Mg Tablet) 1 mg PO Q4H PRN PRN Reason: agitation Last Admin: 05/16/22 23:08 Dose: 1 mg Magnesium Hydroxide (Milk Of Magnesia 30 Ml Oral.Susp) 30 ml PO DAILY PRN PRN Reason: Constipation Melatonin (Melatonin 3 Mg Tablet) 6 mg PO BEDTIME [facility] Last Admin: 05/26/22 21:01 Dose: 6 mg Mirtazapine (Mirtazapine 30 Mg Tablet) 30 mg PO BEDTIME [facility] Last Admin: 05/26/22 21:02 Dose: 30 mg Senna (Sennosides 8.6 Mg Tablet) 17.2 mg PO BEDTIME PRN PRN Reason: constipation Tamsulosin HCl (Tamsulosin Hcl 0.4 Mg Capsule) 0.4 mg PO DAILY [facility] Last Admin: 05/27/22 08:28 Dose: 0.4 mg Trazodone HCl (Trazodone Hcl 50 Mg Tablet) 50 mg PO BEDTIME MRX1 PRN PRN Reason: Insomnia Last Admin: 05/24/22 20:47 Dose: 50 mg Venlafaxine HCl (Venlafaxine Hcl Er 75 Mg Cap.Er.24h) 75 mg PO DAILY [facility] Last Admin: 05/27/22 08:28 Dose: 75 mg Vortioxetine (Vortioxetine Hydrobromide 20 Mg Tablet) 20 mg PO DAILY [facility] Last Admin: 05/27/22 08:28 Dose: 20 mg Allergies Allergies Allergy/AdvReac Type Severity Reaction Status Date / Time levofloxacin [From Levaquin] Allergy Rash Verified 05/08/22 07:07 Penicillins Allergy Rash Verified 05/08/22 07:07 Assessment & Plan Assessment & Plan (1) Major depressive disorder with psychotic features: Status: Acute Code(s): F32.3 - Major depressive disorder, single episode, severe with psychotic features Plan 72-year-old male with history of anxiety/depression, glaucoma, hypercholester olemia, hypertension recently treated for UTI admitted to [facility] psych with consult placed to Medicine for ECT evaluation. hospital course: 05/23 patient reports good and that depression is gone; feeling more clear minded; continue current regimen 05/24 continue current tx plan -npo after midnight -ECT on 05/25 (confirmed by Dr. Womack) Plan 1. Continue with same treatment. 2. Continue ECT with regular right unilateral. Now changed to twice a week 3. Reassessment with results. 4. Increase Trintellix up to 20 mg p.o. daily starting May 21. Reason for contiued inpatient stay Substantial Risk for: inability to function, rapid decompensation and med/psych decompensation Time Spent With Patient Time: Total time managing care of this patient today _20___ minutes.
[2022-05-27 18:00] VITALS: BP 103/59; PULSE 83; RESP 14; TEMP 36.3; O2SAT 96
[2022-05-27] MEDS: Mirtazapine 30 MG TABLET PO (20:27)
[2022-05-27] MEDS: cloZAPine 100 MG TABLET 200 MG PO (20:27)
[2022-05-27] MEDS: Atorvastatin Calcium 20 MG TABLET PO (20:27)
[2022-05-27] MEDS: Melatonin 3 MG TABLET 6 MG PO (20:27)
[2022-05-27] MEDS: Lithium Carbonate ER 300 MG TABLET.ER 600 MG PO (20:27)
[2022-05-28 07:00] VITALS: BMI 27.9
[2022-05-28 07:30] VITALS: BP 158/90; PULSE 87; RESP 18; TEMP 36.7; O2SAT 84
[2022-05-28 08:31] LABS: Estimated Average Glucose 105 mg/dL; Hemoglobin A1c % 5.3 %
[2022-05-28] MEDS: Venlafaxine HCl ER 75 MG CAP.ER.24H PO (08:45)
[2022-05-28] MEDS: Tamsulosin HCL 0.4 MG CAPSULE PO (08:45)
[2022-05-28] MEDS: LORazepam 0.5 MG TABLET PO ×2 (08:45→14:58)
[2022-05-28] MEDS: Vortioxetine Hydrobromide 20 MG TABLET PO (08:45)
[2022-05-28 08:52] LABS: Lithium 0.87 mmol/L (0.60-1.20)
[2022-05-28 09:10] LABS: Anion Gap 8 (12-20); Blood Urea Nitrogen 16 mg/dL (9-16); Calcium 9.5 mg/dL (8.4-10.2); Carbon Dioxide 29 mmol/L (22-29); Chloride 107 mmol/L (96-108); Cholesterol 135 mg/dL; Creatinine Clr Calc Pharmacy 57.8; Estimated Glomerular Filt Rate > 60; Glucose Random 134 mg/dL (60-115); HDL Cholesterol 41 mg/dL; LDL Cholesterol Calculated 64 mg/dl; Potassium 4.3 mmol/L (3.3-5.1); Sodium 140 mmol/L (135-145); Triglycerides 152 mg/dL
[2022-05-28] MEDS: Finasteride 5 MG TABLET PO (09:10)
[2022-05-28 09:26] LABS: Thyroid Stimulating Hormone 4.93 uIU/mL (0.32-4.0)
--- NOTE | 2022-05-28 14:37 | HO.PSYCHPN ---
Subjective Subjective Date of Service: 05/28/22 Reason For Visit: MDD Recurrent Episode Severe PTSD Subjective Notes: Conditional Voluntary Interim History: the nursing staff reported the patient had been compliant with treatment, he had been isolative but he was able to go to groups according to the occupational therapist. On interview the patient denies depression he feels okay but he looks disengaged and dysphoric. He will have ECT tomorrow Mental Status Exam Mental Status Exam Patient Appearance: Well Grooomed and Appropriate Patient Orientation: Person and Situation Level of Consciousness: Awake and Appropriate Patient Behavior: Guarded and Passive Mood Description: Withdrawn Affect Description: Constricted Patient Cognition Impaired: Yes Ability to Follow Directions: Good Speech Pattern: Clear Hallucinations: None Delusions: Not Present Thought Process: Distracted, Evasive and Slowed Thinking Thought Content: positive for [place] and positive for Linear Judgement: Fair Diagnostics Vital Signs (24Hr): Vital Signs - 24 hr 05/27/22 18:00 05/28/22 07:30 Temperature 97.3 F 98.1 F Pulse Rate 83 87 Respiratory Rate 14 18 Blood Pressure 103/59 L 158/90 H Pulse Oximetry 96 84 L Oxygen Delivery Method Room Air Room Air BMI result Body Mass Index 27.9 Labs 05/05/22 07:54 05/28/22 07:54 Labs: Laboratory Results - last 48 hr 05/28/22 05/28/22 05/28/22 07:54 07:54 07:54 Sodium 140 Potassium 4.3 Chloride 107 Carbon Dioxide 29 Anion Gap 8 L BUN 16 Creatinine 1.17 Estim Creat Clear Calc 57.8 Estimated GFR > 60 Random Glucose 134 H Estimat Average Glucose 105 Hemoglobin A1c % 5.3 Calcium 9.5 Triglycerides 152 Cholesterol 135 LDL Cholesterol, Calc 64 HDL Cholesterol 41 TSH 4.93 H [place] 0.87 Imaging Radiology Impressions: ITS Impressions Brain MRI 04/24/22 09:39 IMPRESSION: - No acute intracranial findings. No acute infarcts. - There is global cerebral volume loss and there is mild chronic microangiopathy. Medications Medications Current Medications Acetaminophen (Acetaminophen 325 Mg Tablet) 650 mg PO Q6H PRN PRN Reason: Headache/Pain Mild Scale (1-3) Last Admin: 05/18/22 17:39 Dose: 650 mg Al Hydroxide/Mg Hydroxide (Magnesium Hydrox/Alum Hydrox 30 Ml Oral.Susp) 30 ml PO Q6H PRN PRN Reason: Heartburn/Nausea Atorvastatin Calcium (Atorvastatin Calcium 20 Mg Tablet) 20 mg PO BEDTIME [facility] Last Admin: 05/27/22 20:27 Dose: 20 mg Clozapine (Clozapine 100 Mg Tablet) 200 mg PO BEDTIME [facility] Last Admin: 05/27/22 20:27 Dose: 200 mg Finasteride (Finasteride 5 Mg Tablet) 5 mg PO DAILY [facility] Last Admin: 05/28/22 09:10 Dose: 5 mg [place] Carbonate ([place] Carbonate Er 300 Mg Tablet.Er) 600 mg PO BEDTIME [facility] Last Admin: 05/27/22 20:27 Dose: 600 mg Lorazepam (Lorazepam 0.5 Mg Tablet) 0.5 mg PO TID [facility] Last Admin: 05/28/22 08:45 Dose: 0.5 mg Lorazepam (Lorazepam 1 Mg Tablet) 1 mg PO Q4H PRN PRN Reason: agitation Last Admin: 05/16/22 23:08 Dose: 1 mg Magnesium Hydroxide (Milk Of Magnesia 30 Ml Oral.Susp) 30 ml PO DAILY PRN PRN Reason: Constipation Melatonin (Melatonin 3 Mg Tablet) 6 mg PO BEDTIME [facility] Last Admin: 05/27/22 20:27 Dose: 6 mg Mirtazapine (Mirtazapine 30 Mg Tablet) 30 mg PO BEDTIME [facility] Last Admin: 05/27/22 20:27 Dose: 30 mg Senna (Sennosides 8.6 Mg Tablet) 17.2 mg PO BEDTIME PRN PRN Reason: constipation Tamsulosin HCl (Tamsulosin Hcl 0.4 Mg Capsule) 0.4 mg PO DAILY [facility] Last Admin: 05/28/22 08:45 Dose: 0.4 mg Trazodone HCl (Trazodone Hcl 50 Mg Tablet) 50 mg PO BEDTIME MRX1 PRN PRN Reason: Insomnia Last Admin: 05/24/22 20:47 Dose: 50 mg Vortioxetine (Vortioxetine Hydrobromide 20 Mg Tablet) 20 mg PO DAILY [facility] Last Admin: 05/28/22 08:45 Dose: 20 mg Allergies Allergies Allergy/AdvReac Type Severity Reaction Status Date / Time levofloxacin [From Levaquin] Allergy Rash Verified 05/08/22 07:07 Penicillins Allergy Rash Verified 05/08/22 07:07 Assessment & Plan Assessment & Plan (1) Major depressive disorder with psychotic features: Status: Acute Code(s): F32.3 - Major depressive disorder, single episode, severe with psychotic features Plan 72-year-old male with history of anxiety/depression, glaucoma, hypercholesterolemia, hypertension recently treated for UTI admitted to [facility] psych with consult placed to Medicine for ECT evaluation. hospital course: 05/23 patient reports good and that depression is gone; feeling more clear minded; continue current regimen 05/24 continue current tx plan -npo after midnight -ECT on 05/25 (confirmed by Dr. Womack) Plan 1. Continue with same treatment. 2. Continue ECT with regular right unilateral. Now changed to twice a week 3. Reassessment with results. 4. Increase Trintellix up to 20 mg p.o. daily starting May 21. Reason for contiued inpatient stay Substantial Risk for: inability to function, rapid decompensation and med/psych decompensation Time Spent With Patient Time: Total time managing care of this patient today __20__ minutes.
[2022-05-28 20:46] VITALS: BP 123/57; PULSE 90; RESP 18; TEMP 36.6; O2SAT 93
[2022-05-28] MEDS: cloZAPine 100 MG TABLET 200 MG PO (20:52)
[2022-05-28] MEDS: Melatonin 3 MG TABLET 6 MG PO (20:52)
[2022-05-28] MEDS: Mirtazapine 30 MG TABLET PO (20:52)
[2022-05-28] MEDS: Atorvastatin Calcium 20 MG TABLET PO (20:52)
[2022-05-29] VITALS (8 sets, daily range): BP systolic 141–176; BP diastolic 79–96; PULSE 76–818; RESP 14–20; TEMP 36.3–37.2; O2SAT 95–100
--- NOTE | 2022-05-29 07:46 | HO.ANESPROP2 ---
[facility] Active Problems Active Problems: All Active Problems (Updated 05/05/22 @ 18:15 by GENE Carey) Routine medical exam (Acute) UTI (urinary tract infection) (Acute) Routine history and physical examination of adult (Acute) Major depressive disorder with psychotic features (Acute) Past Medical History Medical History Anxiety Depression Glaucoma Hypercholesteremia Hypertension Laceration of abdomen Laceration of chest Laceration of wrist UTI (urinary tract infection) Family History Family history of problems with anesthesia: No Surgical History Surgical History History of laparotomy History of Problems with Anesthesia: No Social History Social History Household Members: Spouse Housing: House Are you a primary wound care nurse to a significant other at home: No Do you presently have visiting nurse or other home services: No Patient Tobacco Use Status: Former Tobacco user Quit Date: 03/2200 Tobacco use type: Cigarette and Cigar Smoked in Last 30 Days: No e-Cigarette/Vaping Use: Never Used Patient Interested in Nicotine Replacement: No Use of substances other than those prescribed or required for medical reasons: No Currently Displaying Signs/Symptoms of Drug Intoxication Withdrawal: No Any prior treatment program specific to substance use: No Are you DNR?: No Advance Directives: No Advance Directives Information Provided: No Suicidal Behavior: History of suicide attemps Current/Past Psychiatric Disorders: Alcohol abuse, Chronic mental illess and Mood disorder Phan Symptoms: Impulsivity Family History: Attempts Change in Treatment: Change in provider Access to Firearms: No Do you have thoughts of harming others: None Do you have a plan to hurt others: No Plan Do you have the means to hurt others: Yes (pervasive thoughts of using kitchen knife to harm/kill and self) Recently lost weight without trying: No Nutrition Risks: No Nutritional Risk service: No Sexual orientation: Straight/Heterosexual Gender identity: Male Meds Allergies Allergy/AdvReac Type Severity Reaction Status Date / Time levofloxacin [From Levaquin] Allergy Rash Verified 05/08/22 07:07 Penicillins Allergy Rash Verified 05/08/22 07:07 Active Medications: Current Medications Acetaminophen (Acetaminophen 325 Mg Tablet) 650 mg PO Q6H PRN PRN Reason: Headache/Pain Mild Scale (1-3) Last Admin: 05/18/22 17:39 Dose: 650 mg Al Hydroxide/Mg Hydroxide (Magnesium Hydrox/Alum Hydrox 30 Ml Oral.Susp) 30 ml PO Q6H PRN PRN Reason: Heartburn/Nausea Atorvastatin Calcium (Atorvastatin Calcium 20 Mg Tablet) 20 mg PO BEDTIME DIANNE Last Admin: 05/28/22 20:52 Dose: 20 mg Clozapine (Clozapine 100 Mg Tablet) 200 mg PO BEDTIME DIANNE Last Admin: 05/28/22 20:52 Dose: 200 mg Finasteride (Finasteride 5 Mg Tablet) 5 mg PO DAILY [facility] Last Admin: 05/28/22 09:10 Dose: 5 mg Gilt Edge Carbonate (Gilt Edge Carbonate Er 300 Mg Tablet.Er) 600 mg PO BEDTIME DIANNE Last Admin: 05/27/22 20:27 Dose: 600 mg Lorazepam (Lorazepam 0.5 Mg Tablet) 0.5 mg PO TID [facility] Last Admin: 05/28/22 14:58 Dose: 0.5 mg Lorazepam (Lorazepam 1 Mg Tablet) 1 mg PO Q4H PRN PRN Reason: agitation Last Admin: 05/16/22 23:08 Dose: 1 mg Magnesium Hydroxide (Milk Of Magnesia 30 Ml Oral.Susp) 30 ml PO DAILY PRN PRN Reason: Constipation Melatonin (Melatonin 3 Mg Tablet) 6 mg PO BEDTIME [facility] Last Admin: 05/28/22 20:52 Dose: 6 mg Mirtazapine (Mirtazapine 30 Mg Tablet) 30 mg PO BEDTIME [facility] Last Admin: 05/28/22 20:52 Dose: 30 mg Senna (Sennosides 8.6 Mg Tablet) 17.2 mg PO BEDTIME PRN PRN Reason: constipation Tamsulosin HCl (Tamsulosin Hcl 0.4 Mg Capsule) 0.4 mg PO DAILY [facility] Last Admin: 05/28/22 08:45 Dose: 0.4 mg Trazodone HCl (Trazodone Hcl 50 Mg Tablet) 50 mg PO BEDTIME MRX1 PRN PRN Reason: Insomnia Last Admin: 05/24/22 20:47 Dose: 50 mg Vortioxetine (Vortioxetine Hydrobromide 20 Mg Tablet) 20 mg PO DAILY [facility] Last Admin: 05/28/22 08:45 Dose: 20 mg Home Medications Medication Instructions Recorded Confirmed Last Taken Type clozapine 50 mg tablet 1 tab PO BEDTIME 04/11/22 04/11/22 04/10/22 History finasteride 5 mg tablet 1 tab PO DAILY 04/11/22 04/11/22 Unknown History lithium carbonate 300 mg 1 tab PO BEDTIME 04/11/22 04/11/22 04/10/22 History tablet,extended release mirtazapine 30 mg tablet 1 tab PO BEDTIME 04/11/22 04/11/22 Unknown History tamsulosin 0.4 mg capsule 1 cap PO DAILY 04/11/22 04/11/22 Unknown History venlafaxine 75 mg capsule,extended 1 cap PO QAM 04/11/22 04/11/22 Unknown History release 24 hr Exam Exam Date and Time: May 29, 2022 0746 Height,Weight and Vital Signs: Height 5 ft 6 in Weight 78.5 kg Last Vital Signs Temp 97.4 F 05/29/22 07:30 Pulse 76 05/29/22 07:30 Resp 16 05/29/22 07:30 BP 164/92 H 05/29/22 07:30 Pulse Ox 97 05/29/22 07:30 O2 Del Method Room Air 05/29/22 07:30 O2 Flow Rate 2 05/25/22 08:22 Pertinent Lab Results Pertinent Lab Results: Laboratory Tests 04/11/22 04/11/22 04/11/22 08:42 20:09 20:09 WBC RBC Hgb Hct MCV MCH MCHC RDW Plt Count MPV Immature Gran % (Auto) Neut % (Auto) Lymph % (Auto) [place] % (Auto) Eos % (Auto) Baso % (Auto) Lymph # (Auto) [place] # (Auto) Eos # (Auto) Baso # (Auto) Abs Immat Gran (auto) Absolute Neuts (auto) 3.7 Absolute Nucleated RBC Nucleated RBC % (auto) Sodium 144 Potassium 4.4 Chloride 112 H Carbon Dioxide 25 Anion Gap 11 L BUN 11 Creatinine 1.06 Estim Creat Clear Calc 63.2 Estimated GFR > 60 POC Glucose Random Glucose 165 H Fasting Glucose Estimat Average Glucose 108 Hemoglobin A1c % 5.4 Calcium 8.7 Total Bilirubin 0.5 Direct Bilirubin 0.2 AST 13 ALT 17 Alkaline Phosphatase 79 Total Protein 5.3 L Albumin 3.4 L Triglycerides 122 Cholesterol 100 LDL Cholesterol, Calc 47 HDL Cholesterol 29 Vitamin B12 505 Folate 14.5 TSH 2.24 Urine Color Urine Appearance Urine pH Ur Specific [place] Urine Protein Urine Glucose (UA) Urine Ketones Urine Blood Urine Nitrite Ur Leukocyte Esterase Urine RBC Urine WBC Ur Squamous Epith Cells Urine Bacteria Hyaline Casts Clozapine Norclozapine Gilt Edge 04/11/22 04/16/22 04/16/22 20:09 08:12 08:12 WBC RBC Hgb Hct MCV MCH MCHC RDW Plt Count MPV Immature Gran % (Auto) Neut % (Auto) Lymph % (Auto) [place] % (Auto) Eos % (Auto) Baso % (Auto) Lymph # (Auto) [place] # (Auto) Eos # (Auto) Baso # (Auto) Abs Immat Gran (auto) Absolute Neuts (auto) Absolute Nucleated RBC Nucleated RBC % (auto) Sodium 142 Potassium 4.3 Chloride 109 H Carbon Dioxide 27 Anion Gap 10 L BUN 12 Creatinine 0.99 Estim Creat Clear Calc 67.7 Estimated GFR > 60 POC Glucose Random Glucose 151 H Fasting Glucose Estimat Average Glucose Hemoglobin A1c % Calcium 9.0 Total Bilirubin Direct Bilirubin AST ALT Alkaline Phosphatase Total Protein Albumin Triglycerides Cholesterol LDL Cholesterol, Calc HDL Cholesterol Vitamin B12 Folate TSH 3.41 Urine Color Urine Appearance Urine pH Ur Specific [place] Urine Protein Urine Glucose (UA) Urine Ketones Urine Blood Urine Nitrite Ur Leukocyte Esterase Urine RBC Urine WBC Ur Squamous Epith Cells Urine Bacteria Hyaline Casts Clozapine Norclozapine Gilt Edge 0.48 L 0.77 04/18/22 04/22/22 04/22/22 06:54 09:15 14:25 WBC RBC Hgb Hct MCV MCH MCHC RDW Plt Count MPV Immature Gran % (Auto) Neut % (Auto) Lymph % (Auto) [place] % (Auto) Eos % (Auto) Baso % (Auto) Lymph # (Auto) [place] # (Auto) Eos # (Auto) Baso # (Auto) Abs Immat Gran (auto) Absolute Neuts (auto) 4.8 Absolute Nucleated RBC Nucleated RBC % (auto) Sodium 142 Potassium 3.9 Chloride 110 H Carbon Dioxide 27 Anion Gap 9 L BUN 13 Creatinine 1.07 Estim Creat Clear Calc 62.6 Estimated GFR > 60 POC Glucose Random Glucose 190 H Fasting Glucose Estimat Average Glucose Hemoglobin A1c % Calcium 8.7 Total Bilirubin 0.6 Direct Bilirubin AST 16 ALT 29 Alkaline Phosphatase 72 Total Protein 5.2 L Albumin 3.5 Triglycerides Cholesterol LDL Cholesterol, Calc HDL Cholesterol Vitamin B12 Folate TSH Urine Color Yellow Urine Appearance Clear Urine pH 6.5 Ur Specific [place] <= 1.005 Urine Protein Negative Urine Glucose (UA) Negative Urine Ketones Negative Urine Blood Trace H Urine Nitrite Negative Ur Leukocyte Esterase Large (3+) H Urine RBC 0-2 Urine WBC >50 H Ur Squamous Epith Cells 0-2 Urine Bacteria None Seen Hyaline Casts 0-2 Clozapine Norclozapine Gilt Edge 04/25/22 04/30/22 04/30/22 03:33 07:45 07:45 WBC RBC Hgb Hct MCV MCH MCHC RDW Plt Count MPV Immature Gran % (Auto) Neut % (Auto) Lymph % (Auto) [place] % (Auto) Eos % (Auto) Baso % (Auto) Lymph # (Auto) [place] # (Auto) Eos # (Auto) Baso # (Auto) Abs Immat Gran (auto) Absolute Neuts (auto) 3.7 Absolute Nucleated RBC Nucleated RBC % (auto) Sodium Potassium Chloride Carbon Dioxide Anion Gap BUN Creatinine Estim Creat Clear Calc Estimated GFR POC Glucose Random Glucose Fasting Glucose Estimat Average Glucose 105 Hemoglobin A1c % 5.3 Calcium Total Bilirubin Direct Bilirubin AST ALT Alkaline Phosphatase Total Protein Albumin Triglycerides Cholesterol LDL Cholesterol, Calc HDL Cholesterol Vitamin B12 Folate TSH Urine Color Urine Appearance Urine pH Ur Specific [place] Urine Protein Urine Glucose (UA) Urine Ketones Urine Blood Urine Nitrite Ur Leukocyte Esterase Urine RBC Urine WBC Ur Squamous Epith Cells Urine Bacteria Hyaline Casts Clozapine 338 Norclozapine 216 Gilt Edge 05/01/22 05/01/22 05/02/22 07:07 07:07 06:07 WBC RBC Hgb Hct MCV MCH MCHC RDW Plt Count MPV Immature Gran % (Auto) Neut % (Auto) Lymph % (Auto) [place] % (Auto) Eos % (Auto) Baso % (Auto) Lymph # (Auto) [place] # (Auto) Eos # (Auto) Baso # (Auto) Abs Immat Gran (auto) Absolute Neuts (auto) 2.8 Absolute Nucleated RBC Nucleated RBC % (auto) Sodium 141 Potassium 4.4 Chloride 110 H Carbon Dioxide 27 Anion Gap 8 L BUN 15 Creatinine 0.98 Estim Creat Clear Calc 69.2 Estimated GFR > 60 POC Glucose Random Glucose 105 Fasting Glucose Estimat Average Glucose Hemoglobin A1c % Calcium 8.8 Total Bilirubin Direct Bilirubin AST ALT Alkaline Phosphatase Total Protein Albumin Triglycerides Cholesterol LDL Cholesterol, Calc HDL Cholesterol Vitamin B12 Folate TSH 3.76 Urine Color Urine Appearance Urine pH Ur Specific [place] Urine Protein Urine Glucose (UA) Urine Ketones Urine Blood Urine Nitrite Ur Leukocyte Esterase Urine RBC Urine WBC Ur Squamous Epith Cells Urine Bacteria Hyaline Casts Clozapine Norclozapine Gilt Edge 0.88 05/05/22 05/05/22 05/09/22 07:54 07:54 08:11 WBC 5.8 RBC 4.61 Hgb 13.7 L Hct 43.1 MCV 93.5 MCH 29.7 MCHC 31.8 RDW 12.8 Plt Count 207 MPV 9.0 L Immature Gran % (Auto) 0.3 Neut % (Auto) 55.4 Lymph % (Auto) 32.2 [place] % (Auto) 9.7 Eos % (Auto) 1.9 Baso % (Auto) 0.5 Lymph # (Auto) 1.9 [place] # (Auto) 0.6 Eos # (Auto) 0.1 Baso # (Auto) 0.0 Abs Immat Gran (auto) 0.02 Absolute Neuts (auto) 3.2 4.1 Absolute Nucleated RBC 0.000 Nucleated RBC % (auto) 0.0 Sodium 141 Potassium 4.3 Chloride 107 Carbon Dioxide 28 Anion Gap 10 L BUN 17 H Creatinine 1.03 Estim Creat Clear Calc 65.9 Estimated GFR > 60 POC Glucose Random Glucose Fasting Glucose 130 H Estimat Average Glucose Hemoglobin A1c % Calcium 9.0 Total Bilirubin 0.9 Direct Bilirubin AST 18 ALT 37 Alkaline Phosphatase 90 Total Protein 5.6 L Albumin 3.8 Triglycerides Cholesterol LDL Cholesterol, Calc HDL Cholesterol Vitamin B12 Folate TSH Urine Color Urine Appearance Urine pH Ur Specific [place] Urine Protein Urine Glucose (UA) Urine Ketones Urine Blood Urine Nitrite Ur Leukocyte Esterase Urine RBC Urine WBC Ur Squamous Epith Cells Urine Bacteria Hyaline Casts Clozapine Norclozapine Gilt Edge 05/16/22 05/18/22 05/19/22 06:40 09:10 19:27 WBC RBC Hgb Hct MCV MCH MCHC RDW Plt Count MPV Immature Gran % (Auto) Neut % (Auto) Lymph % (Auto) [place] % (Auto) Eos % (Auto) Baso % (Auto) Lymph # (Auto) [place] # (Auto) Eos # (Auto) Baso # (Auto) Abs Immat Gran (auto) Absolute Neuts (auto) 3.6 Absolute Nucleated RBC Nucleated RBC % (auto) Sodium Potassium Chloride Carbon Dioxide Anion Gap BUN Creatinine Estim Creat Clear Calc Estimated GFR POC Glucose 133 H Random Glucose Fasting Glucose Estimat Average Glucose Hemoglobin A1c % Calcium Total Bilirubin Direct Bilirubin AST ALT Alkaline Phosphatase Total Protein Albumin Triglycerides Cholesterol LDL Cholesterol, Calc HDL Cholesterol Vitamin B12 Folate TSH Urine Color Yellow Urine Appearance Clear Urine pH 6.5 Ur Specific [place] 1.015 Urine Protein Negative Urine Glucose (UA) Negative Urine Ketones Negative Urine Blood Negative Urine Nitrite Negative Ur Leukocyte Esterase Negative Urine RBC 0-2 Urine WBC 0-5 Ur Squamous Epith Cells 0-2 Urine Bacteria None Seen Hyaline Casts 0-2 Clozapine Norclozapine Gilt Edge 05/23/22 05/28/22 05/28/22 07:27 07:54 07:54 WBC RBC Hgb Hct MCV MCH MCHC RDW Plt Count MPV Immature Gran % (Auto) Neut % (Auto) Lymph % (Auto) [place] % (Auto) Eos % (Auto) Baso % (Auto) Lymph # (Auto) [place] # (Auto) Eos # (Auto) Baso # (Auto) Abs Immat Gran (auto) Absolute Neuts (auto) 3.4 Absolute Nucleated RBC Nucleated RBC % (auto) Sodium 140 Potassium 4.3 Chloride 107 Carbon Dioxide 29 Anion Gap 8 L BUN 16 Creatinine 1.17 Estim Creat Clear Calc 57.8 Estimated GFR > 60 POC Glucose Random Glucose 134 H Fasting Glucose Estimat Average Glucose 105 Hemoglobin A1c % 5.3 Calcium 9.5 Total Bilirubin Direct Bilirubin AST ALT Alkaline Phosphatase Total Protein Albumin Triglycerides 152 Cholesterol 135 LDL Cholesterol, Calc 64 HDL Cholesterol 41 Vitamin B12 Folate TSH 4.93 H Urine Color Urine Appearance Urine pH Ur Specific [place] Urine Protein Urine Glucose (UA) Urine Ketones Urine Blood Urine Nitrite Ur Leukocyte Esterase Urine RBC Urine WBC Ur Squamous Epith Cells Urine Bacteria Hyaline Casts Clozapine Norclozapine Gilt Edge 05/28/22 07:54 WBC RBC Hgb Hct MCV MCH MCHC RDW Plt Count MPV Immature Gran % (Auto) Neut % (Auto) Lymph % (Auto) [place] % (Auto) Eos % (Auto) Baso % (Auto) Lymph # (Auto) [place] # (Auto) Eos # (Auto) Baso # (Auto) Abs Immat Gran (auto) Absolute Neuts (auto) Absolute Nucleated RBC Nucleated RBC % (auto) Sodium Potassium Chloride Carbon Dioxide Anion Gap BUN Creatinine Estim Creat Clear Calc Estimated GFR POC Glucose Random Glucose Fasting Glucose Estimat Average Glucose Hemoglobin A1c % Calcium Total Bilirubin Direct Bilirubin AST ALT Alkaline Phosphatase Total Protein Albumin Triglycerides Cholesterol LDL Cholesterol, Calc HDL Cholesterol Vitamin B12 Folate TSH Urine Color Urine Appearance Urine pH Ur Specific [place] Urine Protein Urine Glucose (UA) Urine Ketones Urine Blood Urine Nitrite Ur Leukocyte Esterase Urine RBC Urine WBC Ur Squamous Epith Cells Urine Bacteria Hyaline Casts Clozapine Norclozapine Gilt [place] 0.87 Airway Mallampati Class: II TM Dist: >3cm Neck ROM: Full Heart: rrr Lungs: cta Assessment and Plan Assessment Anesthesia Assessment: Anesthesia Plan Discussed and Chart Reviewed Final Anesthetic Review Family History of Problems with Anesthesia: No History of Problems with Anesthesia: No NPO: Yes ASA Class: III Final Preanesthetic Review: No Changes in Pt Med Stat, Meds/Allgs Chart Reviewed and Consent Obtained/Reviewed Patient Risk: Intermediate Procedure Risk: Intermediate Anesthetic Plan Anesthetic Plan: GA Disposition: Standard PACU
--- NOTE | 2022-05-29 08:38 | MHC.SHP ---
Pre-Procedural Eval Section A Date of Service: 05/29/22 The patient is an INPATIENT: Yes Changes since office visit: Yes Patient answered all questions; No Cold of Flu in the past 2 weeks, No New Medical Problems and No Changes in Medication Section B Chief Complaint: MDD Recurrent Episode Severe PTSD Allergies: Allergies Allergy/AdvReac Type Severity Reaction Status Date / Time levofloxacin [From Levaquin] Allergy Rash Verified 05/08/22 07:07 Penicillins Allergy Rash Verified 05/08/22 07:07 Plan I have reviewed the history and physical and performed a pertinent physical examination on my patient. No changes have occurred unless specified. Time Spent With Patient Time: Total time managing care of this patient today ____ minutes.
--- NOTE | 2022-05-29 08:38 | HO.ECTPROC ---
ECT Procedure Note Diagnosis/Treatment Date of Service: 05/29/22 Diagnosis: Schizoaffective Disorder Previous ECT Date: 05/27/22 Current Treatment Number: 9 Treatment: Series Interval Clinical Notes: .pt states feeling much better Time: Total time managing care of this patient today ____ minutes. ECT Settings Device: THYMATRON DGx Electrode Placement: Right Unilateral Program/Pulse Width: 0.50 Energy Percent: 100 Seizure Duration By EEG (in seconds): 40 Medications Administration General Anesthetic: Etomidate (12) Muscle Relaxant: Succinylcholine (100) Ancillary Medications Anti-emetics: Zofran - Pre ECT Miscillaneous Medications: Flumazenil (500 mcg ) Airway Management Airway Management: Bag Mask Ventilation Treatment Recommendations No Changes Recommended: No change Notes: did much better etom 12 hyperventilation Pt Tolerated Procedure w/o Issue: Yes
--- NOTE | 2022-05-29 09:10 | HO.ECTPROC ---
ECT Procedure Note Diagnosis/Treatment Date of Service: 05/29/22 Diagnosis: Major Depressive Disorder Previous ECT Date: 05/25/22 Current Treatment Number: 9 Treatment: Series Interval Clinical Notes: Patient states he continues to feel better some dulling and short-term memory affects reportedly noted by staff patient states he feels significantly improved denies impulsive self-harming thoughts or intrusive hallucinations Time: Total time managing care of this patient today ____ minutes. ECT Settings Device: THYMATRON DGx Electrode Placement: Right Unilateral Program/Pulse Width: 0.50 Energy Percent: 100 Seizure Duration By EEG (in seconds): 40 Medications Administration General Anesthetic: Etomidate (12) Muscle Relaxant: Succinylcholine (100) Ancillary Medications Anti-emetics: Zofran - Pre ECT Miscillaneous Medications: Flumazenil (500 mcg) Airway Management Airway Management: Bag Mask Ventilation Treatment Recommendations No Changes Recommended: No change Notes: Patient did better with hyperventilation etomidate 12 mg and flumazenil Pt Tolerated Procedure w/o Issue: Yes
[2022-05-29] MEDS: Tamsulosin HCL 0.4 MG CAPSULE PO (09:49)
[2022-05-29] MEDS: Finasteride 5 MG TABLET PO (09:49)
[2022-05-29] MEDS: Vortioxetine Hydrobromide 20 MG TABLET PO (09:49)
[2022-05-29] MEDS: LORazepam 0.5 MG TABLET PO ×3 (09:51→20:37)
--- NOTE | 2022-05-29 14:21 | HO.PSYCHPN ---
Subjective Subjective Date of Service: 05/29/22 Reason For Visit: MDD Recurrent Episode Severe PTSD Subjective Notes: Conditional Voluntary Interim History: the nursing staff reported that the patient has been pleasant, cooperative attending to groups. The social service technician reported that we will plan discharged after ECT and [facility] was reached out. Also [facility] will provide peer support. The occupational therapist will do a cognitive testing again. On interview, the patient reports that he is doing fine, slightly confused after ECT. Mental Status Exam Mental Status Exam Patient Appearance: Well Grooomed and Appropriate Patient Orientation: Person and Situation Level of Consciousness: Awake and Appropriate Patient Behavior: Guarded and Passive Mood Description: Withdrawn and Depressed Affect Description: Constricted Patient Cognition Impaired: Yes Ability to Follow Directions: Good Speech Pattern: Clear Hallucinations: None Delusions: Not Present Thought Process: Distracted and Slowed Thinking Thought Content: positive for [place] and positive for Circumstantial Judgement: Fair Diagnostics Vital Signs (24Hr): Vital Signs - 24 hr 05/28/22 20:46 05/29/22 05:45 05/29/22 07:30 Temperature 97.8 F 97.4 F 97.4 F Pulse Rate 90 83 76 Respiratory Rate 18 20 16 Blood Pressure 123/57 L 141/81 H 164/92 H Pulse Oximetry 93 98 97 Oxygen Delivery Method Room Air Room Air Oxygen Flow Rate 05/29/22 09:00 05/29/22 09:05 05/29/22 09:10 Temperature 98.9 F Pulse Rate 88 82 82 Respiratory Rate 14 19 19 Blood Pressure 176/96 H 162/95 H 162/90 H Pulse Oximetry 100 98 98 Oxygen Delivery Method Nasal Cannula Nasal Cannula Room Air Oxygen Flow Rate 2 2 05/29/22 09:15 05/29/22 09:30 05/29/22 09:47 Temperature 98.9 F 98 F Pulse Rate 82 80 818 H Respiratory Rate 18 18 16 Blood Pressure 153/96 H 158/95 H 144/79 H Pulse Oximetry 98 96 95 Oxygen Delivery Method Room Air Room Air Oxygen Flow Rate BMI result Body Mass Index 27.9 Labs 05/05/22 07:54 05/28/22 07:54 Labs: Laboratory Results - last 48 hr 05/28/22 05/28/22 05/28/22 07:54 07:54 07:54 Sodium 140 Potassium 4.3 Chloride 107 Carbon Dioxide 29 Anion Gap 8 L BUN 16 Creatinine 1.17 Estim Creat Clear Calc 57.8 Estimated GFR > 60 Random Glucose 134 H Estimat Average Glucose 105 Hemoglobin A1c % 5.3 Calcium 9.5 Triglycerides 152 Cholesterol 135 LDL Cholesterol, Calc 64 HDL Cholesterol 41 TSH 4.93 H Kieler 0.87 Imaging Radiology Impressions: ITS Impressions Brain MRI 04/24/22 09:39 IMPRESSION: - No acute intracranial findings. No acute infarcts. - There is global cerebral volume loss and there is mild chronic microangiopathy. Medications Medications Current Medications Acetaminophen (Acetaminophen 325 Mg Tablet) 650 mg PO Q6H PRN PRN Reason: Headache/Pain Mild Scale (1-3) Last Admin: 05/18/22 17:39 Dose: 650 mg Al Hydroxide/Mg Hydroxide (Magnesium Hydrox/Alum Hydrox 30 Ml Oral.Susp) 30 ml PO Q6H PRN PRN Reason: Heartburn/Nausea Atorvastatin Calcium (Atorvastatin Calcium 20 Mg Tablet) 20 mg PO BEDTIME DIANNE Last Admin: 05/28/22 20:52 Dose: 20 mg Clozapine (Clozapine 100 Mg Tablet) 200 mg PO BEDTIME DIANNE Last Admin: 05/28/22 20:52 Dose: 200 mg Finasteride (Finasteride 5 Mg Tablet) 5 mg PO DAILY DIANNE Last Admin: 05/29/22 09:49 Dose: 5 mg [place] Carbonate ([place] Carbonate Er 300 Mg Tablet.Er) 600 mg PO BEDTIME DIANNE Last Admin: 05/27/22 20:27 Dose: 600 mg Lorazepam (Lorazepam 0.5 Mg Tablet) 0.5 mg PO TID DIANNE Last Admin: 05/29/22 09:51 Dose: 0.5 mg Lorazepam (Lorazepam 1 Mg Tablet) 1 mg PO Q4H PRN PRN Reason: agitation Last Admin: 05/16/22 23:08 Dose: 1 mg Magnesium Hydroxide (Milk Of Magnesia 30 Ml Oral.Susp) 30 ml PO DAILY PRN PRN Reason: Constipation Melatonin (Melatonin 3 Mg Tablet) 6 mg PO BEDTIME DIANNE Last Admin: 05/28/22 20:52 Dose: 6 mg Mirtazapine (Mirtazapine 30 Mg Tablet) 30 mg PO BEDTIME DIANNE Last Admin: 05/28/22 20:52 Dose: 30 mg Senna (Sennosides 8.6 Mg Tablet) 17.2 mg PO BEDTIME PRN PRN Reason: constipation Tamsulosin HCl (Tamsulosin Hcl 0.4 Mg Capsule) 0.4 mg PO DAILY [facility] Last Admin: 05/29/22 09:49 Dose: 0.4 mg Trazodone HCl (Trazodone Hcl 50 Mg Tablet) 50 mg PO BEDTIME MRX1 PRN PRN Reason: Insomnia Last Admin: 05/24/22 20:47 Dose: 50 mg Vortioxetine (Vortioxetine Hydrobromide 20 Mg Tablet) 20 mg PO DAILY [facility] Last Admin: 05/29/22 09:49 Dose: 20 mg Allergies Allergies Allergy/AdvReac Type Severity Reaction Status Date / Time levofloxacin [From Levaquin] Allergy Rash Verified 05/08/22 07:07 Penicillins Allergy Rash Verified 05/08/22 07:07 Assessment & Plan Assessment & Plan (1) Major depressive disorder with psychotic features: Status: Acute Code(s): F32.3 - Major depressive disorder, single episode, severe with psychotic features Plan 72-year-old male with history of anxiety/depression, glaucoma, hypercholesterolemia, hypertension recently treated for UTI admitted to [facility] psych with consult placed to Medicine for ECT evaluation. hospital course: 05/23 patient reports good and that depression is gone; feeling more clear minded; continue current regimen 05/24 continue current tx plan -npo after midnight -ECT on 05/25 (confirmed by Dr. Womack) Plan 1. Continue with same treatment. 2. Continue ECT with regular right unilateral. Now changed to twice a week 3. Reassessment with results. 4. Increase Trintellix up to 20 mg p.o. daily starting May 21. Reason for continued inpatient stay Substantial Risk for: inability to function, rapid decompensation and med/psych decompensation Time Spent With Patient Time: Total time managing care of this patient today __20__ minutes.
[2022-05-29] MEDS: cloZAPine 100 MG TABLET 200 MG PO (20:37)
[2022-05-29] MEDS: Atorvastatin Calcium 20 MG TABLET PO (20:37)
[2022-05-29] MEDS: Lithium Carbonate ER 300 MG TABLET.ER 600 MG PO (20:37)
[2022-05-29] MEDS: Melatonin 3 MG TABLET 6 MG PO (20:38)
[2022-05-29] MEDS: Mirtazapine 30 MG TABLET PO (20:38)
[2022-05-30 06:00] VITALS: BP 126/73; PULSE 83; RESP 18; TEMP 35.9; O2SAT 96
[2022-05-30 07:31] LABS: Neut%MD 60.2 %; Neutrophils Absolute Auto 3.8 x10*3/uL (2.0-8.3); WBCANC 6.3 X10*3/uL
[2022-05-30] MEDS: Vortioxetine Hydrobromide 20 MG TABLET PO (08:37)
[2022-05-30] MEDS: LORazepam 0.5 MG TABLET PO ×3 (08:37→21:24)
[2022-05-30] MEDS: Tamsulosin HCL 0.4 MG CAPSULE PO (08:37)
[2022-05-30] MEDS: Finasteride 5 MG TABLET PO (08:37)
--- NOTE | 2022-05-30 11:34 | P.PNPSI_ITS ---
Subjective Subjective Date of Service: 05/30/22 Reason For Visit: MDD Recurrent Episode Severe PTSD Subjective Notes: Conditional Voluntary Interim History: Patient pleasant future oriented when seen come not overly depressed. Denies any recent thoughts of harm to himself or others or intrusive psychotic command thoughts Mental Status Exam Mental Status Exam Patient Appearance: Well Grooomed and Appropriate Patient Orientation: Person and Situation Level of Consciousness: Awake and Appropriate Patient Behavior: Guarded and Passive Mood Description: Calm and Withdrawn Affect Description: Constricted Patient Cognition Impaired: Yes Ability to Follow Directions: Good Speech Pattern: Clear Hallucinations: None Delusions: Not Present Thought Process: Distracted and Slowed Thinking Thought Content: positive for [place] and positive for Circumstantial Judgement: Fair Diagnostics Vital Signs (24Hr): Vital Signs - 24 hr 05/30/22 06:00 Temperature 96.7 F L Pulse Rate 83 Respiratory Rate 18 Blood Pressure 126/73 Pulse Oximetry 96 Oxygen Delivery Method Room Air BMI result Body Mass Index 27.9 Labs 05/05/22 07:54 05/28/22 07:54 Labs: Laboratory Results - last 48 hr 05/30/22 06:54 Absolute Neuts (auto) 3.8 Imaging Radiology Impressions: ITS Impressions Brain MRI 04/24/22 09:39 IMPRESSION: - No acute intracranial findings. No acute infarcts. - There is global cerebral volume loss and there is mild chronic microangiopathy. Medications Medications Current Medications Acetaminophen (Acetaminophen 325 Mg Tablet) 650 mg PO Q6H PRN PRN Reason: Headache/Pain Mild Scale (1-3) Last Admin: 05/18/22 17:39 Dose: 650 mg Al Hydroxide/Mg Hydroxide (Magnesium Hydrox/Alum Hydrox 30 Ml Oral.Susp) 30 ml PO Q6H PRN PRN Reason: Heartburn/Nausea Atorvastatin Calcium (Atorvastatin Calcium 20 Mg Tablet) 20 mg PO BEDTIME [facility] Last Admin: 05/29/22 20:37 Dose: 20 mg Clozapine (Clozapine 100 Mg Tablet) 200 mg PO BEDTIME [facility] Last Admin: 05/29/22 20:37 Dose: 200 mg Finasteride (Finasteride 5 Mg Tablet) 5 mg PO DAILY [facility] Last Admin: 05/30/22 08:37 Dose: 5 mg [place] Carbonate ([place] Carbonate Er 300 Mg Tablet.Er) 600 mg PO BEDTIME [facility] Last Admin: 05/29/22 20:37 Dose: 600 mg Lorazepam (Lorazepam 0.5 Mg Tablet) 0.5 mg PO TID [facility] Last Admin: 05/30/22 08:37 Dose: 0.5 mg Lorazepam (Lorazepam 1 Mg Tablet) 1 mg PO Q4H PRN PRN Reason: agitation Last Admin: 05/16/22 23:08 Dose: 1 mg Magnesium Hydroxide (Milk Of Magnesia 30 Ml Oral.Susp) 30 ml PO DAILY PRN PRN Reason: Constipation Melatonin (Melatonin 3 Mg Tablet) 6 mg PO BEDTIME [facility] Last Admin: 05/29/22 20:38 Dose: 6 mg Mirtazapine (Mirtazapine 30 Mg Tablet) 30 mg PO BEDTIME [facility] Last Admin: 05/29/22 20:38 Dose: 30 mg Senna (Sennosides 8.6 Mg Tablet) 17.2 mg PO BEDTIME PRN PRN Reason: constipation Tamsulosin HCl (Tamsulosin Hcl 0.4 Mg Capsule) 0.4 mg PO DAILY [facility] Last Admin: 05/30/22 08:37 Dose: 0.4 mg Trazodone HCl (Trazodone Hcl 50 Mg Tablet) 50 mg PO BEDTIME MRX1 PRN PRN Reason: Insomnia Last Admin: 05/24/22 20:47 Dose: 50 mg Vortioxetine (Vortioxetine Hydrobromide 20 Mg Tablet) 20 mg PO DAILY [facility] Last Admin: 05/30/22 08:37 Dose: 20 mg Allergies Allergies Allergy/AdvReac Type Severity Reaction Status Date / Time levofloxacin [From Levaquin] Allergy Rash Verified 05/08/22 07:07 Penicillins Allergy Rash Verified 05/08/22 07:07 Assessment & Plan Assessment & Plan (1) Major depressive disorder with psychotic features: Status: Acute Code(s): F32.3 - Major depressive disorder, single episode, severe with psychotic features Plan 72-year-old male with history of anxiety/depression, glaucoma, hypercholesterolemia, hypertension recently treated for UTI admitted to [facility] psych with consult placed to Medicine for ECT evaluation. hospital course: 05/23 patient reports good and that depression is gone; feeling more clear minded; continue current regimen 05/24 continue current tx plan -npo after midnight -ECT on 05/25 (confirmed by Dr. Womack) 05/30/2022 Continue plan of care discharge planning Plan 1. Continue with same treatment. 2. Continue ECT with regular right unilateral. Now changed to twice a week 3. Reassessment with results. 4. Increase Trintellix up to 20 mg p.o. daily starting May 21. Reason for continued inpatient stay Substantial Risk for: harm to self and rapid decompensation Time Spent With Patient Time: Total time managing care of this patient today ____ minutes.
[2022-05-30 16:05] VITALS: BP 145/77; PULSE 77; TEMP 36.1
[2022-05-30] MEDS: Mirtazapine 30 MG TABLET PO (21:24)
[2022-05-30] MEDS: traZODone HCL 50 MG TABLET PO (21:24)
[2022-05-30] MEDS: Atorvastatin Calcium 20 MG TABLET PO (21:24)
[2022-05-30] MEDS: Lithium Carbonate ER 300 MG TABLET.ER 600 MG PO (21:25)
[2022-05-30] MEDS: Melatonin 3 MG TABLET 6 MG PO (21:25)
[2022-05-30] MEDS: cloZAPine 100 MG TABLET 200 MG PO (21:25)
[2022-05-31 08:55] VITALS: BP 136/82; PULSE 91; RESP 18; TEMP 36.3; O2SAT 98
[2022-05-31] MEDS: Vortioxetine Hydrobromide 20 MG TABLET PO (08:59)
[2022-05-31] MEDS: LORazepam 0.5 MG TABLET PO ×3 (08:59→20:12)
[2022-05-31] MEDS: Tamsulosin HCL 0.4 MG CAPSULE PO (08:59)
[2022-05-31] MEDS: Finasteride 5 MG TABLET PO (08:59)
[2022-05-31 18:00] VITALS: BP 139/66; PULSE 87; RESP 18; TEMP 36.6; O2SAT 99
[2022-05-31] MEDS: cloZAPine 100 MG TABLET 200 MG PO (20:00)
[2022-05-31] MEDS: Lithium Carbonate ER 300 MG TABLET.ER 600 MG PO (20:11)
[2022-05-31] MEDS: Melatonin 3 MG TABLET 6 MG PO (20:12)
[2022-05-31] MEDS: Mirtazapine 30 MG TABLET PO (20:13)
[2022-05-31] MEDS: traZODone HCL 50 MG TABLET PO (20:13)
--- NOTE | 2022-05-31 22:34 | P.PNPSI_ITS ---
Subjective Subjective Date of Service: 05/31/22 Reason For Visit: MDD Recurrent Episode Severe PTSD Subjective Notes: Conditional Voluntary Interim History: Patient seen psychiatric follow-up cooperative somewhat isolative encouraged to engage in the community more tends to be somewhat passive and withdrawn Mental Status Exam Mental Status Exam Patient Appearance: Well Grooomed and Appropriate Patient Orientation: Person and Situation Level of Consciousness: Awake and Appropriate Patient Behavior: Guarded and Passive Mood Description: Withdrawn and Constricted Affect Description: Calm Patient Cognition Impaired: Yes Ability to Follow Directions: Good Speech Pattern: Clear Hallucinations: None Delusions: Not Present Thought Process: Distracted and Slowed Thinking Thought Content: positive for [place] and positive for Circumstantial Judgement: Fair Diagnostics Vital Signs (24Hr): Vital Signs - 24 hr 05/31/22 08:55 05/31/22 18:00 05/31/22 18:00 Temperature 97.4 F 97.9 F 97.9 F Pulse Rate 91 87 87 Respiratory Rate 18 18 18 Blood Pressure 136/82 139/66 139/66 Pulse Oximetry 98 99 99 Oxygen Delivery Method Room Air Room Air Room Air BMI result Body Mass Index 27.9 Labs 05/05/22 07:54 05/28/22 07:54 Labs: Laboratory Results - last 48 hr 05/30/22 06:54 Absolute Neuts (auto) 3.8 Imaging Radiology Impressions: ITS Impressions Brain MRI 04/24/22 09:39 IMPRESSION: - No acute intracranial findings. No acute infarcts. - There is global cerebral volume loss and there is mild chronic microangiopathy. Medications Medications Current Medications Acetaminophen (Acetaminophen 325 Mg Tablet) 650 mg PO Q6H PRN PRN Reason: Headache/Pain Mild Scale (1-3) Last Admin: 05/18/22 17:39 Dose: 650 mg Al Hydroxide/Mg Hydroxide (Magnesium Hydrox/Alum Hydrox 30 Ml Oral.Susp) 30 ml PO Q6H PRN PRN Reason: Heartburn/Nausea Atorvastatin Calcium (Atorvastatin Calcium 20 Mg Tablet) 20 mg PO BEDTIME [facility] Last Admin: 05/30/22 21:24 Dose: 20 mg Clozapine (Clozapine 100 Mg Tablet) 200 mg PO BEDTIME [facility] Last Admin: 05/31/22 20:00 Dose: 200 mg Finasteride (Finasteride 5 Mg Tablet) 5 mg PO DAILY [facility] Last Admin: 05/31/22 08:59 Dose: 5 mg [place] Carbonate ([place] Carbonate Er 300 Mg Tablet.Er) 600 mg PO BEDTIME [facility] Last Admin: 05/31/22 20:11 Dose: 600 mg Lorazepam (Lorazepam 0.5 Mg Tablet) 0.5 mg PO TID [facility] Last Admin: 05/31/22 20:12 Dose: 0.5 mg Lorazepam (Lorazepam 1 Mg Tablet) 1 mg PO Q4H PRN PRN Reason: agitation Last Admin: 05/16/22 23:08 Dose: 1 mg Magnesium Hydroxide (Milk Of Magnesia 30 Ml Oral.Susp) 30 ml PO DAILY PRN PRN Reason: Constipation Melatonin (Melatonin 3 Mg Tablet) 6 mg PO BEDTIME [facility] Last Admin: 05/31/22 20:12 Dose: 6 mg Mirtazapine (Mirtazapine 30 Mg Tablet) 30 mg PO BEDTIME [facility] Last Admin: 05/31/22 20:13 Dose: 30 mg Senna (Sennosides 8.6 Mg Tablet) 17.2 mg PO BEDTIME PRN PRN Reason: constipation Tamsulosin HCl (Tamsulosin Hcl 0.4 Mg Capsule) 0.4 mg PO DAILY [facility] Last Admin: 05/31/22 08:59 Dose: 0.4 mg Trazodone HCl (Trazodone Hcl 50 Mg Tablet) 50 mg PO BEDTIME MRX1 PRN PRN Reason: Insomnia Last Admin: 05/31/22 20:13 Dose: 50 mg Vortioxetine (Vortioxetine Hydrobromide 20 Mg Tablet) 20 mg PO DAILY [facility] Last Admin: 05/31/22 08:59 Dose: 20 mg Allergies Allergies Allergy/AdvReac Type Severity Reaction Status Date / Time levofloxacin [From Levaquin] Allergy Rash Verified 05/08/22 07:07 Penicillins Allergy Rash Verified 05/08/22 07:07 Assessment & Plan Assessment & Plan (1) Major depressive disorder with psychotic features: Status: Acute Code(s): F32.3 - Major depressive disorder, single episode, severe with psychotic features Plan 72-year-old male with history of anxiety/depression, glaucoma, hypercholesterolemia, hypertension recently treated for UTI admitted to [facility] psych with consult placed to Medicine for ECT evaluation. hospital course: 05/23 patient reports good and that depression is gone; feeling more clear minded; continue current regimen 05/24 continue current tx plan -npo after midnight -ECT on 05/25 (confirmed by Dr. Womack) 05/30/2022 Continue plan of care discharge planning 05/31/2022 Continue Trintellix monitor response to ECT patient somewhat difficult to read states he feels much improved denies command hallucinations Plan 1. Continue with same treatment. 2. Continue ECT with regular right unilateral. Now changed to twice a week 3. Reassessment with results. 4. Increase Trintellix up to 20 mg p.o. daily starting May 21. Reason for continued inpatient stay Substantial Risk for: harm to self and rapid decompensation Time Spent With Patient Time: Total time managing care of this patient today ____ minutes.
[2022-06-01 08:45] VITALS: BP 135/79; PULSE 72; RESP 16; TEMP 36.6; O2SAT 97
[2022-06-01] MEDS: LORazepam 0.5 MG TABLET PO ×3 (09:05→22:32)
[2022-06-01] MEDS: Finasteride 5 MG TABLET PO (09:05)
[2022-06-01] MEDS: Tamsulosin HCL 0.4 MG CAPSULE PO (09:05)
[2022-06-01] MEDS: Vortioxetine Hydrobromide 20 MG TABLET PO (09:05)
--- NOTE | 2022-06-01 10:32 | HO.PSYCHPN ---
Subjective Subjective Date of Service: 06/01/22 Reason For Visit: MDD Recurrent Episode Severe PTSD Subjective Notes: Conditional Voluntary Interim History: the nursing staff reported the patient stated in his room most of the time, fully compliant with treatment cooperative and pleasant. On interview the patient denies new symptoms he states he is feeling better. But he is isolative most of the time. Mental Status Exam Mental Status Exam Patient Appearance: Well Grooomed and Appropriate Patient Orientation: Person and Situation Level of Consciousness: Awake and Appropriate Patient Behavior: Guarded and Passive Mood Description: Withdrawn and Constricted Affect Description: Calm Patient Cognition Impaired: Yes Ability to Follow Directions: Good Speech Pattern: Clear Hallucinations: None Delusions: Not Present Thought Process: Distracted and Slowed Thinking Thought Content: positive for [place] and positive for Circumstantial Judgement: Fair Diagnostics Vital Signs (24Hr): Vital Signs - 24 hr 05/31/22 18:00 05/31/22 18:00 06/01/22 08:45 Temperature 97.9 F 97.9 F 97.9 F Pulse Rate 87 87 72 Respiratory Rate 18 18 16 Blood Pressure 139/66 139/66 135/79 Pulse Oximetry 99 99 97 Oxygen Delivery Method Room Air Room Air Room Air BMI result Body Mass Index 27.9 Labs 05/05/22 07:54 05/28/22 07:54 Imaging Radiology Impressions: ITS Impressions Brain MRI 04/24/22 09:39 IMPRESSION: - No acute intracranial findings. No acute infarcts. - There is global cerebral volume loss and there is mild chronic microangiopathy. Medications Medications Current Medications Acetaminophen (Acetaminophen 325 Mg Tablet) 650 mg PO Q6H PRN PRN Reason: Headache/Pain Mild Scale (1-3) Last Admin: 05/18/22 17:39 Dose: 650 mg Al Hydroxide/Mg Hydroxide (Magnesium Hydrox/Alum Hydrox 30 Ml Oral.Susp) 30 ml PO Q6H PRN PRN Reason: Heartburn/Nausea Atorvastatin Calcium (Atorvastatin Calcium 20 Mg Tablet) 20 mg PO BEDTIME [facility] Last Admin: 05/30/22 21:24 Dose: 20 mg Clozapine (Clozapine 100 Mg Tablet) 200 mg PO BEDTIME [facility] Last Admin: 05/31/22 20:00 Dose: 200 mg Finasteride (Finasteride 5 Mg Tablet) 5 mg PO DAILY [facility] Last Admin: 06/01/22 09:05 Dose: 5 mg [place] Carbonate ([place] Carbonate Er 300 Mg Tablet.Er) 600 mg PO BEDTIME [facility] Last Admin: 05/31/22 20:11 Dose: 600 mg Lorazepam (Lorazepam 0.5 Mg Tablet) 0.5 mg PO TID [facility] Last Admin: 06/01/22 09:05 Dose: 0.5 mg Lorazepam (Lorazepam 1 Mg Tablet) 1 mg PO Q4H PRN PRN Reason: agitation Last Admin: 05/16/22 23:08 Dose: 1 mg Magnesium Hydroxide (Milk Of Magnesia 30 Ml Oral.Susp) 30 ml PO DAILY PRN PRN Reason: Constipation Melatonin (Melatonin 3 Mg Tablet) 6 mg PO BEDTIME [facility] Last Admin: 05/31/22 20:12 Dose: 6 mg Mirtazapine (Mirtazapine 30 Mg Tablet) 30 mg PO BEDTIME [facility] Last Admin: 05/31/22 20:13 Dose: 30 mg Senna (Sennosides 8.6 Mg Tablet) 17.2 mg PO BEDTIME PRN PRN Reason: constipation Tamsulosin HCl (Tamsulosin Hcl 0.4 Mg Capsule) 0.4 mg PO DAILY [facility] Last Admin: 06/01/22 09:05 Dose: 0.4 mg Trazodone HCl (Trazodone Hcl 50 Mg Tablet) 50 mg PO BEDTIME MRX1 PRN PRN Reason: Insomnia Last Admin: 05/31/22 20:13 Dose: 50 mg Vortioxetine (Vortioxetine Hydrobromide 20 Mg Tablet) 20 mg PO DAILY [facility] Last Admin: 06/01/22 09:05 Dose: 20 mg Allergies Allergies Allergy/AdvReac Type Severity Reaction Status Date / Time levofloxacin [From Levaquin] Allergy Rash Verified 05/08/22 07:07 Penicillins Allergy Rash Verified 05/08/22 07:07 Assessment & Plan Assessment & Plan (1) Major depressive disorder with psychotic features: Status: Acute Code(s): F32.3 - Major depressive disorder, single episode, severe with psychotic features Plan 72-year-old male with history of anxiety/depression, glaucoma, hypercholesterolemia, hypertension recently treated for UTI admitted to [facility] psych with consult placed to Medicine for ECT evaluation. hospital course: 05/23 patient reports good and that depression is gone; feeling more clear minded; continue current regimen 05/24 continue current tx plan -npo after midnight -ECT on 05/25 (confirmed by Dr. Womack) 05/30/2022 Continue plan of care discharge planning Plan 1. Continue with same treatment. 2. Continue ECT with regular right unilateral. Now changed to twice a week 3. Reassessment with results. 4. Increase Trintellix up to 20 mg p.o. daily starting May 21. Reason for continued inpatient stay Substantial Risk for: inability to function, rapid decompensation and med/psych decompensation Time Spent With Patient Time: Total time managing care of this patient today _20___ minutes.
[2022-06-01 18:00] VITALS: BP 138/81; PULSE 76; RESP 18; TEMP 36.3; O2SAT 96
[2022-06-01] MEDS: cloZAPine 100 MG TABLET 200 MG PO (22:31)
[2022-06-01] MEDS: Atorvastatin Calcium 20 MG TABLET PO (22:31)
[2022-06-01] MEDS: Melatonin 3 MG TABLET 6 MG PO (22:32)
[2022-06-01] MEDS: Mirtazapine 30 MG TABLET PO (22:32)
[2022-06-01] MEDS: Lithium Carbonate ER 300 MG TABLET.ER 600 MG PO (22:32)
[2022-06-02 07:55] VITALS: BP 150/86; PULSE 78; RESP 18; TEMP 36.4; O2SAT 98
[2022-06-02] MEDS: Vortioxetine Hydrobromide 20 MG TABLET PO (08:19)
[2022-06-02] MEDS: Tamsulosin HCL 0.4 MG CAPSULE PO (08:19)
[2022-06-02] MEDS: Finasteride 5 MG TABLET PO (08:19)
[2022-06-02] MEDS: LORazepam 0.5 MG TABLET PO ×3 (08:19→21:05)
--- NOTE | 2022-06-02 12:06 | P.PNPSI_ITS ---
Subjective Subjective Date of Service: 06/02/22 Reason For Visit: MDD Recurrent Episode Severe PTSD Subjective Notes: Conditional Voluntary Interim History: the nursing staff reported the patient had been fully compliant with treatment, he has attended a few groups and he have safe in the unit. He had been and slightly disoriented at times but easily redirectable. The occupational therapist reported that he participate fairly well on groups. The psychosocial rehabilitation counselor reported that we will scheduling his discharge for main 1st after finishing the course of [place] [facility], he will go to [facility] and [facility] will provide peer support in a daily basis. On interview the patient denies new symptoms he feels no evidence of depression or anxiety, no side effects or exacerbation of confusion after ECT in the last sessions. Mental Status Exam Mental Status Exam Patient Appearance: Well Grooomed and Appropriate Patient Orientation: Person and Situation Level of Consciousness: Awake and Appropriate Patient Behavior: Guarded and Passive Mood Description: Calm Affect Description: Constricted Patient Cognition Impaired: Yes Ability to Follow Directions: Good Speech Pattern: Clear Hallucinations: None Delusions: Not Present Thought Process: Linear Thought Content: positive for [place] and positive for Circumstantial Judgement: Fair Diagnostics Vital Signs (24Hr): Vital Signs - 24 hr 06/01/22 18:00 06/02/22 07:55 Temperature 97.3 F 97.5 F Pulse Rate 76 78 Respiratory Rate 18 18 Blood Pressure 138/81 150/86 H Pulse Oximetry 96 98 Oxygen Delivery Method Room Air Room Air BMI result Body Mass Index 27.9 Labs 05/05/22 07:54 05/28/22 07:54 Imaging Radiology Impressions: ITS Impressions Brain MRI 04/24/22 09:39 IMPRESSION: - No acute intracranial findings. No acute infarcts. - There is global cerebral volume loss and there is mild chronic microangiopathy. Medications Medications Current Medications Acetaminophen (Acetaminophen 325 Mg Tablet) 650 mg PO Q6H PRN PRN Reason: Headache/Pain Mild Scale (1-3) Last Admin: 05/18/22 17:39 Dose: 650 mg Al Hydroxide/Mg Hydroxide (Magnesium Hydrox/Alum Hydrox 30 Ml Oral.Susp) 30 ml PO Q6H PRN PRN Reason: Heartburn/Nausea Atorvastatin Calcium (Atorvastatin Calcium 20 Mg Tablet) 20 mg PO BEDTIME [facility] Last Admin: 06/01/22 22:31 Dose: 20 mg Clozapine (Clozapine 100 Mg Tablet) 200 mg PO BEDTIME [facility] Last Admin: 06/01/22 22:31 Dose: 200 mg Finasteride (Finasteride 5 Mg Tablet) 5 mg PO DAILY [facility] Last Admin: 06/02/22 08:19 Dose: 5 mg [place] Carbonate ([place] Carbonate Er 300 Mg Tablet.Er) 600 mg PO BEDTIME [facility] Last Admin: 06/01/22 22:32 Dose: 600 mg Lorazepam (Lorazepam 0.5 Mg Tablet) 0.5 mg PO TID [facility] Last Admin: 06/02/22 08:19 Dose: 0.5 mg Lorazepam (Lorazepam 1 Mg Tablet) 1 mg PO Q4H PRN PRN Reason: agitation Last Admin: 05/16/22 23:08 Dose: 1 mg Magnesium Hydroxide (Milk Of Magnesia 30 Ml Oral.Susp) 30 ml PO DAILY PRN PRN Reason: Constipation Melatonin (Melatonin 3 Mg Tablet) 6 mg PO BEDTIME [facility] Last Admin: 06/01/22 22:32 Dose: 6 mg Mirtazapine (Mirtazapine 30 Mg Tablet) 30 mg PO BEDTIME [facility] Last Admin: 06/01/22 22:32 Dose: 30 mg Senna (Sennosides 8.6 Mg Tablet) 17.2 mg PO BEDTIME PRN PRN Reason: constipation Tamsulosin HCl (Tamsulosin Hcl 0.4 Mg Capsule) 0.4 mg PO DAILY [facility] Last Admin: 06/02/22 08:19 Dose: 0.4 mg Trazodone HCl (Trazodone Hcl 50 Mg Tablet) 50 mg PO BEDTIME MRX1 PRN PRN Reason: Insomnia Last Admin: 05/31/22 20:13 Dose: 50 mg Vortioxetine (Vortioxetine Hydrobromide 20 Mg Tablet) 20 mg PO DAILY [facility] Last Admin: 06/02/22 08:19 Dose: 20 mg Allergies Allergies Allergy/AdvReac Type Severity Reaction Status Date / Time levofloxacin [From Levaquin] Allergy Rash Verified 05/08/22 07:07 Penicillins Allergy Rash Verified 05/08/22 07:07 Assessment & Plan Assessment & Plan (1) Major depressive disorder with psychotic features: Status: Acute Code(s): F32.3 - Major depressive disorder, single episode, severe with psychotic features Plan 72-year-old male with history of anxiety/depression, glaucoma, hypercholeste rolemia, hypertension recently treated for UTI admitted to [facility] with consult placed to Medicine for ECT evaluation. hospital course: 05/23 patient reports good and that depression is gone; feeling more clear minded; continue current regimen 05/24 continue current tx plan -npo after midnight -ECT on 05/25 (confirmed by Dr. Womack) 05/30/2022 Continue plan of care discharge planning 05/31/2022 Continue Trintellix monitor response to ECT patient somewhat difficult to read states he feels much improved denies command hallucinations Plan 1. Continue with same treatment. 2. Continue ECT with regular right unilateral. Now changed to twice a week 3. Reassessment with results. 4. Increase Trintellix up to 20 mg p.o. daily starting May 21. Reason for continued inpatient stay Substantial Risk for: inability to function, rapid decompensation and med/psych decompensation Time Spent With Patient Time: Total time managing care of this patient today __20__ minutes.
[2022-06-02 18:49] VITALS: BP 158/91; PULSE 82; RESP 16; TEMP 37.2; O2SAT 96
[2022-06-02] MEDS: Atorvastatin Calcium 20 MG TABLET PO (21:04)
[2022-06-02] MEDS: cloZAPine 100 MG TABLET 200 MG PO (21:04)
[2022-06-02] MEDS: Melatonin 3 MG TABLET 6 MG PO (21:04)
[2022-06-02] MEDS: Mirtazapine 30 MG TABLET PO (21:05)
[2022-06-02] MEDS: Lithium Carbonate ER 300 MG TABLET.ER 600 MG PO (21:05)
[2022-06-03 08:00] VITALS: BP 139/76; PULSE 88; RESP 16; TEMP 36.1; O2SAT 97
[2022-06-03] MEDS: Vortioxetine Hydrobromide 20 MG TABLET PO (08:54)
[2022-06-03] MEDS: Tamsulosin HCL 0.4 MG CAPSULE PO (08:54)
[2022-06-03] MEDS: Finasteride 5 MG TABLET PO (08:54)
[2022-06-03] MEDS: LORazepam 0.5 MG TABLET PO ×3 (08:54→20:06)
[2022-06-03 12:11] VITALS: BP 146/84; PULSE 122; RESP 16; O2SAT 94
[2022-06-03 13:05] VITALS: PULSE 85
--- NOTE | 2022-06-03 13:05 | PC.NURSE ---
At approx 1210, RNs were called into the shower room. Pt sitting on floor with brief half on. PERSONAL PROPERTY ASSESSOR reported that pt was standing and putting underwear on, and lost his balance, did not hit head. Pt corroborated story, adding that he used his left arm/wrist to break fall. No injury or c/o pain, full ROM. BP 144/84, P 122. Attending provider and next of kin notified. Pulse decreased to 85 at 1305. Will continue to monitor.
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
[2022-06-03 18:00] VITALS: BP 155/78; PULSE 88; RESP 18; TEMP 36.6; O2SAT 96
[2022-06-03] MEDS: Acetaminophen 325 MG TABLET 650 MG PO (20:05)
[2022-06-03] MEDS: Mirtazapine 30 MG TABLET PO (20:06)
[2022-06-03] MEDS: cloZAPine 100 MG TABLET 200 MG PO (20:06)
[2022-06-03] MEDS: Atorvastatin Calcium 20 MG TABLET PO (20:06)
[2022-06-03] MEDS: Lithium Carbonate ER 300 MG TABLET.ER 600 MG PO (20:06)
[2022-06-03] MEDS: Melatonin 3 MG TABLET 6 MG PO (20:06)
[2022-06-04 06:00] VITALS: BP 135/68; PULSE 79; RESP 18; TEMP 36.3; O2SAT 97
[2022-06-04] MEDS: LORazepam 0.5 MG TABLET PO ×3 (08:39→20:53)
[2022-06-04] MEDS: Tamsulosin HCL 0.4 MG CAPSULE PO (08:39)
[2022-06-04] MEDS: Finasteride 5 MG TABLET PO (08:39)
[2022-06-04] MEDS: Vortioxetine Hydrobromide 20 MG TABLET PO (08:40)
[2022-06-04 11:04] VITALS: BMI 27.7
--- NOTE | 2022-06-04 14:03 | P.PNPSI_ITS ---
Subjective Subjective Date of Service: 06/04/22 Reason For Visit: MDD Recurrent Episode Severe PTSD Subjective Notes: Conditional Voluntary Interim History: The nursing staff reported the patient had been compliant with treatment, he fell yesterday but he did not hurt himself. He denies suicidal ideation. He has been mostly isolated but he attends to groups with encouragement. On interview the patient denies new symptoms he feels content with the current treatment. He is scheduled for ECT for tomorrow Mental Status Exam Mental Status Exam Patient Appearance: Well Grooomed and Appropriate Patient Orientation: Person and Situation Level of Consciousness: Awake and Appropriate Patient Behavior: Guarded and Passive Mood Description: Withdrawn Affect Description: Constricted Patient Cognition Impaired: Yes Ability to Follow Directions: Good Speech Pattern: Clear Hallucinations: None Delusions: Not Present Thought Process: Linear Thought Content: positive for [place] and positive for Circumstantial Judgement: Fair Diagnostics Vital Signs (24Hr): Vital Signs - 24 hr 06/03/22 18:00 06/04/22 06:00 Temperature 97.8 F 97.4 F Pulse Rate 88 79 Respiratory Rate 18 18 Blood Pressure 155/78 H 135/68 Pulse Oximetry 96 97 Oxygen Delivery Method Room Air BMI result Body Mass Index 27.7 Labs 05/05/22 07:54 05/28/22 07:54 Imaging Radiology Impressions: ITS Impressions Brain MRI 04/24/22 09:39 IMPRESSION: - No acute intracranial findings. No acute infarcts. - There is global cerebral volume loss and there is mild chronic microangiopathy. Medications Medications Current Medications Acetaminophen (Acetaminophen 325 Mg Tablet) 650 mg PO Q6H PRN PRN Reason: Headache/Pain Mild Scale (1-3) Last Admin: 06/03/22 20:05 Dose: 650 mg Al Hydroxide/Mg Hydroxide (Magnesium Hydrox/Alum Hydrox 30 Ml Oral.Susp) 30 ml PO Q6H PRN PRN Reason: Heartburn/Nausea Atorvastatin Calcium (Atorvastatin Calcium 20 Mg Tablet) 20 mg PO BEDTIME [facility] Last Admin: 06/03/22 20:06 Dose: 20 mg Clozapine (Clozapine 100 Mg Tablet) 200 mg PO BEDTIME [facility] Last Admin: 06/03/22 20:06 Dose: 200 mg Finasteride (Finasteride 5 Mg Tablet) 5 mg PO DAILY [facility] Last Admin: 06/04/22 08:39 Dose: 5 mg [place] Carbonate ([place] Carbonate Er 300 Mg Tablet.Er) 600 mg PO BEDTIME [facility] Last Admin: 06/03/22 20:06 Dose: 600 mg Lorazepam (Lorazepam 0.5 Mg Tablet) 0.5 mg PO TID [facility] Last Admin: 06/04/22 08:39 Dose: 0.5 mg Lorazepam (Lorazepam 1 Mg Tablet) 1 mg PO Q4H PRN PRN Reason: agitation Last Admin: 05/16/22 23:08 Dose: 1 mg Magnesium Hydroxide (Milk Of Magnesia 30 Ml Oral.Susp) 30 ml PO DAILY PRN PRN Reason: Constipation Melatonin (Melatonin 3 Mg Tablet) 6 mg PO BEDTIME [facility] Last Admin: 06/03/22 20:06 Dose: 6 mg Mirtazapine (Mirtazapine 30 Mg Tablet) 30 mg PO BEDTIME [facility] Last Admin: 06/03/22 20:06 Dose: 30 mg Senna (Sennosides 8.6 Mg Tablet) 17.2 mg PO BEDTIME PRN PRN Reason: constipation Tamsulosin HCl (Tamsulosin Hcl 0.4 Mg Capsule) 0.4 mg PO DAILY [facility] Last Admin: 06/04/22 08:39 Dose: 0.4 mg Trazodone HCl (Trazodone Hcl 50 Mg Tablet) 50 mg PO BEDTIME MRX1 PRN PRN Reason: Insomnia Last Admin: 05/31/22 20:13 Dose: 50 mg Vortioxetine (Vortioxetine Hydrobromide 20 Mg Tablet) 20 mg PO DAILY [facility] Last Admin: 06/04/22 08:40 Dose: 20 mg Allergies Allergies Allergy/AdvReac Type Severity Reaction Status Date / Time levofloxacin [From Levaquin] Allergy Rash Verified 05/08/22 07:07 Penicillins Allergy Rash Verified 05/08/22 07:07 Assessment & Plan Assessment & Plan (1) Major depressive disorder with psychotic features: Status: Acute Code(s): F32.3 - Major depressive disorder, single episode, severe with psychotic features Plan 72-year-old male with history of anxiety/depression, glaucoma, hypercholesterol emia, hypertension recently treated for UTI admitted to [facility] psych with consult placed to Medicine for ECT evaluation. hospital course: 05/23 patient reports good and that depression is gone; feeling more clear minded; continue current regimen 05/24 continue current tx plan -npo after midnight -ECT on 4/10 (confirmed by Dr. Womack) 05/30/2022 Continue plan of care discharge planning 05/31/2022 Continue Trintellix monitor response to ECT patient somewhat difficult to read states he feels much improved denies command hallucinations Plan 1. Continue with same treatment. 2. Continue ECT with regular right unilateral. Now changed to twice a week 3. Reassessment with results. 4. Increase Trintellix up to 20 mg p.o. daily starting May 21. Reason for continued inpatient stay Substantial Risk for: inability to function, rapid decompensation and med/psych decompensation Time Spent With Patient Time: Total time managing care of this patient today __20__ minutes.
[2022-06-04 20:41] VITALS: BP 145/93; PULSE 83; RESP 18; TEMP 37; O2SAT 96
[2022-06-04] MEDS: Lithium Carbonate ER 300 MG TABLET.ER 600 MG PO (20:52)
[2022-06-04] MEDS: Melatonin 3 MG TABLET 6 MG PO (20:53)
[2022-06-04] MEDS: Atorvastatin Calcium 20 MG TABLET PO (20:53)
[2022-06-04] MEDS: cloZAPine 100 MG TABLET 200 MG PO (20:53)
[2022-06-04] MEDS: Mirtazapine 30 MG TABLET PO (20:53)
[2022-06-04] MEDS: traZODone HCL 50 MG TABLET PO (20:54)
[2022-06-04] MEDS: LORazepam 1 MG TABLET PO (20:55)
[2022-06-05] VITALS (9 sets, daily range): BP systolic 131–163; BP diastolic 77–93; PULSE 76–81; RESP 14–20; TEMP 36.4–37.3; O2SAT 95–100
--- NOTE | 2022-06-05 10:37 | MHC.SHP ---
Pre-Procedural Eval Section A Date of Service: 06/05/22 The patient is an INPATIENT: Yes Changes since office visit: Yes Patient answered all questions; No Cold of Flu in the past 2 weeks, No New Medical Problems and No Changes in Medication Section B Chief Complaint: MDD Recurrent Episode Severe PTSD Allergies: Allergies Allergy/AdvReac Type Severity Reaction Status Date / Time levofloxacin [From Levaquin] Allergy Rash Verified 05/08/22 07:07 Penicillins Allergy Rash Verified 05/08/22 07:07 Review of Systems Sugical H&P ROS: Negative: Constitution, Cardiovascular and Respiratory Exam Surgical H&P Exam: Normal: Heart and Normal: Lungs Plan I have reviewed the history and physical and performed a pertinent physical examination on my patient. No changes have occurred unless specified. Time Spent With Patient Time: Total time managing care of this patient today ____ minutes.
[2022-06-05] MEDS: Finasteride 5 MG TABLET PO (13:42)
[2022-06-05] MEDS: Tamsulosin HCL 0.4 MG CAPSULE PO (13:42)
[2022-06-05] MEDS: Vortioxetine Hydrobromide 20 MG TABLET PO (13:45)
--- NOTE | 2022-06-05 14:57 | P.PNPSI_ITS ---
Subjective Subjective Date of Service: 06/05/22 Reason For Visit: MDD Recurrent Episode Severe PTSD Subjective Notes: Conditional Voluntary Interim History: The nursing staff reported that the patient had been fully compliant with treatment, he went to ECT and he was Emeterio's over-sedated after the procedure. On interview the patient denies new symptoms he feels it euthymic with no anxiety but internally preoccupied. Mental Status Exam Mental Status Exam Patient Appearance: Well Grooomed and Appropriate Patient Orientation: Person and Situation Level of Consciousness: Awake and Appropriate Patient Behavior: Guarded and Passive Mood Description: Withdrawn Affect Description: Constricted Patient Cognition Impaired: Yes Ability to Follow Directions: Good Speech Pattern: Clear Hallucinations: None Delusions: Not Present Thought Process: Linear Thought Content: positive for [place] and positive for Circumstantial Judgement: Fair Diagnostics Vital Signs (24Hr): Vital Signs - 24 hr 06/04/22 20:41 06/05/22 05:40 06/05/22 08:53 Temperature 98.6 F 97.7 F 98.3 F Pulse Rate 83 79 79 Respiratory Rate 18 18 16 Blood Pressure 145/93 H 131/77 153/87 H Pulse Oximetry 96 98 95 Oxygen Delivery Method Room Air Room Air Oxygen Flow Rate 06/05/22 11:02 06/05/22 11:07 06/05/22 11:12 Temperature 99.1 F Pulse Rate 80 79 79 Respiratory Rate 16 16 14 Blood Pressure 150/80 H 151/90 H 147/90 H Pulse Oximetry 100 100 100 Oxygen Delivery Method High Flow Nasal Cannula High Flow Nasal Cannula High Flow Nasal Cannula Oxygen Flow Rate 2 2 2 06/05/22 11:17 06/05/22 11:32 06/05/22 11:47 Temperature 97.5 F Pulse Rate 79 81 78 Respiratory Rate 20 16 18 Blood Pressure 149/88 H 150/90 H 163/93 H Pulse Oximetry 98 97 99 Oxygen Delivery Method Nasal Cannula with ETCO2 Room Air Room Air Oxygen Flow Rate 2 BMI result Body Mass Index 27.7 Labs 05/05/22 07:54 05/28/22 07:54 Imaging Radiology Impressions: ITS Impressions Brain MRI 04/24/22 09:39 IMPRESSION: - No acute intracranial findings. No acute infarcts. - There is global cerebral volume loss and there is mild chronic microangiopathy. Medications Medications Current Medications Acetaminophen (Acetaminophen 325 Mg Tablet) 650 mg PO Q6H PRN PRN Reason: Headache/Pain Mild Scale (1-3) Last Admin: 06/03/22 20:05 Dose: 650 mg Al Hydroxide/Mg Hydroxide (Magnesium Hydrox/Alum Hydrox 30 Ml Oral.Susp) 30 ml PO Q6H PRN PRN Reason: Heartburn/Nausea Atorvastatin Calcium (Atorvastatin Calcium 20 Mg Tablet) 20 mg PO BEDTIME [facility] Last Admin: 06/04/22 20:53 Dose: 20 mg Clozapine (Clozapine 100 Mg Tablet) 200 mg PO BEDTIME [facility] Last Admin: 06/04/22 20:53 Dose: 200 mg Finasteride (Finasteride 5 Mg Tablet) 5 mg PO DAILY [facility] Last Admin: 06/05/22 13:42 Dose: 5 mg Lactated Ringer's (Lr) 1,000 mls @ 50 mls/hr IVCONT .Q20H [facility] Last Admin: 06/05/22 11:59 Dose: Not Given [place] Carbonate (Senath Carbonate Er 300 Mg Tablet.Er) 600 mg PO BEDTIME [facility] Last Admin: 06/04/22 20:52 Dose: 600 mg Lorazepam (Lorazepam 0.5 Mg Tablet) 0.5 mg PO TID [facility] Last Admin: 06/05/22 13:43 Dose: Not Given Lorazepam (Lorazepam 1 Mg Tablet) 1 mg PO Q4H PRN PRN Reason: agitation Last Admin: 06/04/22 20:55 Dose: 1 mg Magnesium Hydroxide (Milk Of Magnesia 30 Ml Oral.Susp) 30 ml PO DAILY PRN PRN Reason: Constipation Melatonin (Melatonin 3 Mg Tablet) 6 mg PO BEDTIME [facility] Last Admin: 06/04/22 20:53 Dose: 6 mg Mirtazapine (Mirtazapine 30 Mg Tablet) 30 mg PO BEDTIME [facility] Last Admin: 06/04/22 20:53 Dose: 30 mg Senna (Sennosides 8.6 Mg Tablet) 17.2 mg PO BEDTIME PRN PRN Reason: constipation Tamsulosin HCl (Tamsulosin Hcl 0.4 Mg Capsule) 0.4 mg PO DAILY [facility] Last Admin: 06/05/22 13:42 Dose: 0.4 mg Trazodone HCl (Trazodone Hcl 50 Mg Tablet) 50 mg PO BEDTIME MRX1 PRN PRN Reason: Insomnia Last Admin: 06/04/22 20:54 Dose: 50 mg Vortioxetine (Vortioxetine Hydrobromide 20 Mg Tablet) 20 mg PO DAILY [facility] Last Admin: 06/05/22 13:45 Dose: 20 mg Allergies Allergies Allergy/AdvReac Type Severity Reaction Status Date / Time levofloxacin [From Levaquin] Allergy Rash Verified 05/08/22 07:07 Penicillins Allergy Rash Verified 05/08/22 07:07 Assessment & Plan Assessment & Plan (1) Major depressive disorder with psychotic features: Status: Acute Code(s): F32.3 - Major depressive disorder, single episode, severe with psychotic features Plan 72-year-old male with history of anxiety/depression, glaucoma, hypercholesterolemia, hypertension recently treated for UTI admitted to [facility] with consult placed to Medicine for ECT evaluation. hospital course: 05/23 patient reports good and that depression is gone; feeling more clear minded; continue current regimen 05/24 continue current tx plan -npo after midnight -ECT on 05/25 (confirmed by Dr. Womack) 05/30/2022 Continue plan of care discharge planning 05/31/2022 Continue Trintellix monitor response to ECT patient somewhat difficult to read states he feels much improved denies command hallucinations Plan 1. Continue with same treatment. 2. Continue ECT with regular right unilateral. Now changed to twice a week 3. Reassessment with results. 4. Increase Trintellix up to 20 mg p.o. daily starting May 21. Reason for continued inpatient stay Substantial Risk for: inability to function, rapid decompensation and med/psych decompensation Time Spent With Patient Time: Total time managing care of this patient today _20___ minutes.
[2022-06-05] MEDS: LORazepam 0.5 MG TABLET PO ×2 (16:03→20:11)
[2022-06-05] MEDS: Melatonin 3 MG TABLET 6 MG PO (20:11)
[2022-06-05] MEDS: Mirtazapine 30 MG TABLET PO (20:11)
[2022-06-05] MEDS: cloZAPine 100 MG TABLET 200 MG PO (20:11)
[2022-06-05] MEDS: Atorvastatin Calcium 20 MG TABLET PO (20:11)
[2022-06-05] MEDS: Lithium Carbonate ER 300 MG TABLET.ER 600 MG PO (20:11)
--- NOTE | 2022-06-05 21:53 | HO.ECTPROC ---
ECT Procedure Note Diagnosis/Treatment Date of Service: 05/29/22 Diagnosis: Major Depressive Disorder Previous ECT Date: 05/25/22 Treatment: Series Interval Clinical Notes: Patient states he continues to feel better some dulling and short-term memory affects reportedly noted by staff patient states he feels significantly improved denies impulsive self-harming thoughts or intrusive hallucinations Time: Total time managing care of this patient today ____ minutes. ECT Settings Device: THYMATRON DGx Electrode Placement: Right Unilateral Program/Pulse Width: 0.50 Energy Percent: 100 Seizure Duration By EEG (in seconds): 40 Medications Administration General Anesthetic: Etomidate (12) Muscle Relaxant: Succinylcholine (100) Ancillary Medications Anti-emetics: Zofran - Pre ECT Miscillaneous Medications: Flumazenil (500 mcg) Airway Management Airway Management: Bag Mask Ventilation Treatment Recommendations No Changes Recommended: No change Notes: Patient did better with hyperventilation etomidate 12 mg and flumazenil Pt Tolerated Procedure w/o Issue: Yes
[2022-06-06 06:33] LABS: Neut%MD 49.8 %; Neutrophils Absolute Auto 2.8 x10*3/uL (2.0-8.3); WBCANC 5.7 X10*3/uL
[2022-06-06 09:00] VITALS: BP 144/74; PULSE 85; RESP 16; TEMP 36.3; O2SAT 98
[2022-06-06] MEDS: Finasteride 5 MG TABLET PO (09:08)
[2022-06-06] MEDS: Vortioxetine Hydrobromide 20 MG TABLET PO (09:08)
[2022-06-06] MEDS: Tamsulosin HCL 0.4 MG CAPSULE PO (09:08)
[2022-06-06] MEDS: LORazepam 0.5 MG TABLET PO ×3 (09:08→20:17)
--- NOTE | 2022-06-06 10:44 | P.PNPSI_ITS ---
Subjective Subjective Date of Service: 06/06/22 Reason For Visit: MDD Recurrent Episode Severe PTSD Subjective Notes: Conditional Voluntary Interim History: The nursing staff reported the patient feels much better after ECT he adamantly denies suicidal ideation. On interview the patient denies symptoms, he is going to continue to have ECT twice a week and continue the 12 sessions. No safety concerns at this moment Mental Status Exam Mental Status Exam Patient Appearance: Well Grooomed and Appropriate Patient Orientation: Person and Situation Level of Consciousness: Awake and Appropriate Patient Behavior: Guarded and Passive Mood Description: Calm and Constricted Affect Description: Constricted Patient Cognition Impaired: Yes Ability to Follow Directions: Good Speech Pattern: Clear and Appropriate Hallucinations: None Delusions: Not Present Thought Process: Linear Thought Content: positive for Intact and positive for Circumstantial Judgement: Fair Diagnostics Vital Signs (24Hr): Vital Signs - 24 hr 06/05/22 11:02 06/05/22 11:07 06/05/22 11:12 Temperature 99.1 F Pulse Rate 80 79 79 Respiratory Rate 16 16 14 Blood Pressure 150/80 H 151/90 H 147/90 H Pulse Oximetry 100 100 100 Oxygen Delivery Method High Flow Nasal Cannula High Flow Nasal Cannula High Flow Nasal Cannula Oxygen Flow Rate 2 2 2 06/05/22 11:17 06/05/22 11:32 06/05/22 11:47 Temperature 97.5 F Pulse Rate 79 81 78 Respiratory Rate 20 16 18 Blood Pressure 149/88 H 150/90 H 163/93 H Pulse Oximetry 98 97 99 Oxygen Delivery Method Nasal Cannula with ETCO2 Room Air Room Air Oxygen Flow Rate 2 06/05/22 18:00 06/06/22 09:00 Temperature 98.1 F 97.4 F Pulse Rate 76 85 Respiratory Rate 18 16 Blood Pressure 154/86 H 144/74 H Pulse Oximetry 97 98 Oxygen Delivery Method Room Air Room Air Oxygen Flow Rate BMI result Body Mass Index 27.7 Labs 05/05/22 07:54 05/28/22 07:54 Labs: Laboratory Results - last 48 hr 06/06/22 06:14 Absolute Neuts (auto) 2.8 Imaging Radiology Impressions: ITS Impressions Brain MRI 04/24/22 09:39 IMPRESSION: - No acute intracranial findings. No acute infarcts. - There is global cerebral volume loss and there is mild chronic microangiopathy. Medications Medications Current Medications Acetaminophen (Acetaminophen 325 Mg Tablet) 650 mg PO Q6H PRN PRN Reason: Headache/Pain Mild Scale (1-3) Last Admin: 06/03/22 20:05 Dose: 650 mg Al Hydroxide/Mg Hydroxide (Magnesium Hydrox/Alum Hydrox 30 Ml Oral.Susp) 30 ml PO Q6H PRN PRN Reason: Heartburn/Nausea Atorvastatin Calcium (Atorvastatin Calcium 20 Mg Tablet) 20 mg PO BEDTIME [facility] Last Admin: 06/05/22 20:11 Dose: 20 mg Clozapine (Clozapine 100 Mg Tablet) 200 mg PO BEDTIME [facility] Last Admin: 06/05/22 20:11 Dose: 200 mg Finasteride (Finasteride 5 Mg Tablet) 5 mg PO DAILY [facility] Last Admin: 06/06/22 09:08 Dose: 5 mg [place] Carbonate ([place] Carbonate Er 300 Mg Tablet.Er) 600 mg PO BEDTIME [facility] Last Admin: 06/05/22 20:11 Dose: 600 mg Lorazepam (Lorazepam 0.5 Mg Tablet) 0.5 mg PO TID [facility] Last Admin: 06/06/22 09:08 Dose: 0.5 mg Lorazepam (Lorazepam 1 Mg Tablet) 1 mg PO Q4H PRN PRN Reason: agitation Last Admin: 06/04/22 20:55 Dose: 1 mg Magnesium Hydroxide (Milk Of Magnesia 30 Ml Oral.Susp) 30 ml PO DAILY PRN PRN Reason: Constipation Melatonin (Melatonin 3 Mg Tablet) 6 mg PO BEDTIME [facility] Last Admin: 06/05/22 20:11 Dose: 6 mg Mirtazapine (Mirtazapine 30 Mg Tablet) 30 mg PO BEDTIME [facility] Last Admin: 06/05/22 20:11 Dose: 30 mg Senna (Sennosides 8.6 Mg Tablet) 17.2 mg PO BEDTIME PRN PRN Reason: constipation Tamsulosin HCl (Tamsulosin Hcl 0.4 Mg Capsule) 0.4 mg PO DAILY [facility] Last Admin: 06/06/22 09:08 Dose: 0.4 mg Trazodone HCl (Trazodone Hcl 50 Mg Tablet) 50 mg PO BEDTIME MRX1 PRN PRN Reason: Insomnia Last Admin: 06/04/22 20:54 Dose: 50 mg Vortioxetine (Vortioxetine Hydrobromide 20 Mg Tablet) 20 mg PO DAILY [facility] Last Admin: 06/06/22 09:08 Dose: 20 mg Allergies Allergies Allergy/AdvReac Type Severity Reaction Status Date / Time levofloxacin [From Levaquin] Allergy Rash Verified 05/08/22 07:07 Penicillins Allergy Rash Verified 05/08/22 07:07 Assessment & Plan Assessment & Plan (1) Major depressive disorder with psychotic features: Status: Acute Code(s): F32.3 - Major depressive disorder, single episode, severe with psychotic features Plan 72-year-old male with history of anxiety/depression, glaucoma, hypercholesterolemia, hypertension recently treated for UTI admitted to [facility] with consult placed to Medicine for ECT evaluation. hospital course: 05/23 patient reports good and that depression is gone; feeling more clear minded; continue current regimen 05/24 continue current tx plan -npo after midnight -ECT on 05/25 (confirmed by Dr. Womack) 05/30/2022 Continue plan of care discharge planning 05/31/2022 Continue Trintellix monitor response to ECT patient somewhat difficult to read states he feels much improved denies command hallucinations Plan 1. Continue with same treatment. 2. Continue ECT with regular right unilateral. Now changed to twice a week 3. Reassessment with results. 4. Increase Trintellix up to 20 mg p.o. daily starting May 21. Reason for continued inpatient stay Substantial Risk for: inability to function, rapid decompensation and med/psych decompensation Time Spent With Patient Time: Total time managing care of this patient today _20___ minutes.
--- NOTE | 2022-06-06 11:28 | HO.POSTANES ---
Post Anesthesia Evaluation Post Anesthesia Evaluation Vital Signs: Vital Signs Temp Pulse Resp BP Pulse Ox O2 Del Method 06/06/22 09:00 97.4 F 85 16 144/74 H 98 Room Air Anesthesia: General Mental Status: Awake Pain Control: Satisfactory Nausea/Vomiting: None Hydration: Adequate Anesthesia-Related Issues: No Anes. Related Issues
[2022-06-06 18:36] VITALS: BP 120/73; PULSE 88; RESP 18; TEMP 37.2; O2SAT 97
[2022-06-06] MEDS: Mirtazapine 30 MG TABLET PO (20:17)
[2022-06-06] MEDS: Atorvastatin Calcium 20 MG TABLET PO (20:17)
[2022-06-06] MEDS: cloZAPine 100 MG TABLET 200 MG PO (20:17)
[2022-06-06] MEDS: Melatonin 3 MG TABLET 6 MG PO (20:17)
[2022-06-06] MEDS: Lithium Carbonate ER 300 MG TABLET.ER 600 MG PO (20:17)
--- NOTE | 2022-06-06 22:44 | HO.ECTPROC ---
ECT Procedure Note Diagnosis/Treatment Date of Service: 06/06/22 Diagnosis: Major Depressive Disorder Previous ECT Date: 06/05/22 Current Treatment Number: 10 Treatment: Series Interval Clinical Notes: Patient states he is feeling ok somewhat flat denies aud brandt Time: Total time managing care of this patient today ____ minutes. ECT Settings Device: THYMATRON DGx Electrode Placement: Right Unilateral Program/Pulse Width: 0.50 Energy Percent: 100 Seizure Duration By EEG (in seconds): 32 Medications Administration General Anesthetic: Etomidate (14) Muscle Relaxant: Succinylcholine (100) Ancillary Medications Anti-emetics: Zofran - Pre ECT Miscillaneous Medications: Flumazenil (500 mcg) Airway Management Airway Management: Bag Mask Ventilation Treatment Recommendations No Changes Recommended: No change Notes: Patient did better with hyperventilation etomidate 14 mg and flumazenil pt remains flat not psychotic Pt Tolerated Procedure w/o Issue: Yes
[2022-06-07 08:55] VITALS: BP 137/90; PULSE 81; RESP 18; TEMP 36.5; O2SAT 97
[2022-06-07] MEDS: Finasteride 5 MG TABLET PO (08:57)
[2022-06-07] MEDS: Tamsulosin HCL 0.4 MG CAPSULE PO (08:57)
[2022-06-07] MEDS: Vortioxetine Hydrobromide 20 MG TABLET PO (08:57)
[2022-06-07] MEDS: LORazepam 0.5 MG TABLET PO (08:57)
--- NOTE | 2022-06-07 09:37 | HO.PSYCHPN ---
Subjective Subjective Date of Service: 06/07/22 Reason For Visit: MDD Recurrent Episode Severe PTSD Subjective Notes: Conditional Voluntary Interim History: The nursing staff reported the patient had been fully compliant with treatment, he was slightly confused after the ECT yesterday but no new symptoms. He slept well last night. On interview the patient adamantly denies suicidal ideation, no new symptoms. Mental Status Exam Mental Status Exam Patient Appearance: Well Grooomed and Appropriate Patient Orientation: Person and Situation Level of Consciousness: Awake and Appropriate Patient Behavior: Cooperative and Passive Mood Description: Calm Affect Description: Constricted Patient Cognition Impaired: Yes Ability to Follow Directions: Good Speech Pattern: Clear Hallucinations: None Delusions: Not Present Thought Process: Linear Thought Content: positive for Circumstantial Judgement: Fair Diagnostics Vital Signs (24Hr): Vital Signs - 24 hr 06/06/22 18:36 06/07/22 08:55 Temperature 98.9 F 97.7 F Pulse Rate 88 81 Respiratory Rate 18 18 Blood Pressure 120/73 137/90 H Pulse Oximetry 97 97 Oxygen Delivery Method Room Air Room Air BMI result Body Mass Index 27.7 Labs 05/05/22 07:54 05/28/22 07:54 Labs: Laboratory Results - last 48 hr 06/06/22 06:14 Absolute Neuts (auto) 2.8 Imaging Radiology Impressions: ITS Impressions Brain MRI 04/24/22 09:39 IMPRESSION: - No acute intracranial findings. No acute infarcts. - There is global cerebral volume loss and there is mild chronic microangiopathy. Medications Medications Current Medications Acetaminophen (Acetaminophen 325 Mg Tablet) 650 mg PO Q6H PRN PRN Reason: Headache/Pain Mild Scale (1-3) Last Admin: 06/03/22 20:05 Dose: 650 mg Al Hydroxide/Mg Hydroxide (Magnesium Hydrox/Alum Hydrox 30 Ml Oral.Susp) 30 ml PO Q6H PRN PRN Reason: Heartburn/Nausea Atorvastatin Calcium (Atorvastatin Calcium 20 Mg Tablet) 20 mg PO BEDTIME DIANNE Last Admin: 06/06/22 20:17 Dose: 20 mg Clozapine (Clozapine 100 Mg Tablet) 200 mg PO BEDTIME DIANNE Last Admin: 06/06/22 20:17 Dose: 200 mg Finasteride (Finasteride 5 Mg Tablet) 5 mg PO DAILY DIANNE Last Admin: 06/07/22 08:57 Dose: 5 mg Elnora Carbonate (Elnora Carbonate Er 300 Mg Tablet.Er) 600 mg PO BEDTIME DIANNE Last Admin: 06/06/22 20:17 Dose: 600 mg Magnesium Hydroxide (Milk Of Magnesia 30 Ml Oral.Susp) 30 ml PO DAILY PRN PRN Reason: Constipation Melatonin (Melatonin 3 Mg Tablet) 6 mg PO BEDTIME [facility] Last Admin: 06/06/22 20:17 Dose: 6 mg Mirtazapine (Mirtazapine 30 Mg Tablet) 30 mg PO BEDTIME DIANNE Last Admin: 06/06/22 20:17 Dose: 30 mg Senna (Sennosides 8.6 Mg Tablet) 17.2 mg PO BEDTIME PRN PRN Reason: constipation Tamsulosin HCl (Tamsulosin Hcl 0.4 Mg Capsule) 0.4 mg PO DAILY [facility] Last Admin: 06/07/22 08:57 Dose: 0.4 mg Trazodone HCl (Trazodone Hcl 50 Mg Tablet) 50 mg PO BEDTIME MRX1 PRN PRN Reason: Insomnia Last Admin: 06/04/22 20:54 Dose: 50 mg Vortioxetine (Vortioxetine Hydrobromide 20 Mg Tablet) 20 mg PO DAILY [facility] Last Admin: 06/07/22 08:57 Dose: 20 mg Allergies Allergies Allergy/AdvReac Type Severity Reaction Status Date / Time levofloxacin [From Levaquin] Allergy Rash Verified 05/08/22 07:07 Penicillins Allergy Rash Verified 05/08/22 07:07 Assessment & Plan Assessment & Plan (1) Major depressive disorder with psychotic features: Status: Acute Code(s): F32.3 - Major depressive disorder, single episode, severe with psychotic features Plan 72-year-old male with history of anxiety/depression, glaucoma, hypercholesterolemia, hypertension recently treated for UTI admitted to [facility] psych with consult placed to Medicine for ECT evaluation. hospital course: 05/23 patient reports good and that depression is gone; feeling more clear minded; continue current regimen 05/24 continue current tx plan -npo after midnight -ECT on 05/25 (confirmed by Dr. Womack) 05/30/2022 Continue plan of care discharge planning 05/31/2022 Continue Trintellix monitor response to ECT patient somewhat difficult to read states he feels much improved denies command hallucinations Plan 1. Continue with same treatment. 2. Continue ECT with regular right unilateral. Now changed to twice a week 3. Reassessment with results. 4. Increase Trintellix up to 20 mg p.o. daily starting May 21. Reason for continued inpatient stay Substantial Risk for: inability to function, rapid decompensation and med/psych decompensation Time Spent With Patient Time: Total time managing care of this patient today _20___ minutes.
[2022-06-07 18:00] VITALS: BP 141/73; PULSE 78; RESP 17; TEMP 36.8; O2SAT 96
[2022-06-07] MEDS: Acetaminophen 325 MG TABLET 650 MG PO (18:24)
[2022-06-07] MEDS: cloZAPine 100 MG TABLET 200 MG PO (21:57)
[2022-06-07] MEDS: Mirtazapine 30 MG TABLET PO (21:58)
[2022-06-07] MEDS: Lithium Carbonate ER 300 MG TABLET.ER 600 MG PO (21:58)
[2022-06-07] MEDS: Melatonin 3 MG TABLET 6 MG PO (21:58)
[2022-06-07] MEDS: Atorvastatin Calcium 20 MG TABLET PO (22:21)
[2022-06-08] VITALS (9 sets, daily range): BP systolic 122–168; BP diastolic 65–97; PULSE 76–85; RESP 15–22; TEMP 36.3–36.7; O2SAT 96–99
--- NOTE | 2022-06-08 06:48 | PC.NURSE ---
Iv attempt and insertion by author. iv attempt to right hand has small bruise approx. size half dime. pressure dressing applied. Iv attempt by loretta reid rn.
--- NOTE | 2022-06-08 06:51 | P.CONAN_ITS ---
[facility] Active Problems Active Problems: All Active Problems (Updated 05/05/22 @ 18:15 by GENE Carey) Routine medical exam (Acute) UTI (urinary tract infection) (Acute) Routine history and physical examination of adult (Acute) Major depressive disorder with psychotic features (Acute) Past Medical History Medical History Anxiety Depression Glaucoma Hypercholesteremia Hypertension Laceration of abdomen Laceration of chest Laceration of wrist UTI (urinary tract infection) Family History Family history of problems with anesthesia: No Surgical History Surgical History History of laparotomy History of Problems with Anesthesia: No Social History Social History Household Members: Spouse Housing: House Are you a primary team primary care physician to a significant other at home: No Do you presently have visiting nurse or other home services: No Patient Tobacco Use Status: Former Tobacco user Quit Date: 03/2200 Tobacco use type: Cigarette and Cigar e-Cigarette/Vaping Use: Never Used service: No Sexual orientation: Straight/Heterosexual Gender identity: Male Meds Allergies Allergy/AdvReac Type Severity Reaction Status Date / Time levofloxacin [From Levaquin] Allergy Rash Verified 05/08/22 07:07 Penicillins Allergy Rash Verified 05/08/22 07:07 Active Medications: Current Medications Acetaminophen (Acetaminophen 325 Mg Tablet) 650 mg PO Q6H PRN PRN Reason: Headache/Pain Mild Scale (1-3) Last Admin: 06/07/22 18:24 Dose: 650 mg Al Hydroxide/Mg Hydroxide (Magnesium Hydrox/Alum Hydrox 30 Ml Oral.Susp) 30 ml PO Q6H PRN PRN Reason: Heartburn/Nausea Atorvastatin Calcium (Atorvastatin Calcium 20 Mg Tablet) 20 mg PO BEDTIME DIANNE Last Admin: 06/07/22 22:21 Dose: 20 mg Clozapine (Clozapine 100 Mg Tablet) 200 mg PO BEDTIME DIANNE Last Admin: 06/07/22 21:57 Dose: 200 mg Finasteride (Finasteride 5 Mg Tablet) 5 mg PO DAILY DIANNE Last Admin: 06/07/22 08:57 Dose: 5 mg [place] Carbonate ([place] Carbonate Er 300 Mg Tablet.Er) 600 mg PO BEDTIME DIANNE Last Admin: 06/07/22 21:58 Dose: 600 mg Lorazepam (Lorazepam 0.5 Mg Tablet) 0.5 mg PO TID [facility] Last Admin: 06/07/22 23:04 Dose: Not Given Lorazepam (Lorazepam 1 Mg Tablet) 1 mg PO Q4H PRN PRN Reason: Anxiety Magnesium Hydroxide (Milk Of Magnesia 30 Ml Oral.Susp) 30 ml PO DAILY PRN PRN Reason: Constipation Melatonin (Melatonin 3 Mg Tablet) 6 mg PO BEDTIME [facility] Last Admin: 06/07/22 21:58 Dose: 6 mg Mirtazapine (Mirtazapine 30 Mg Tablet) 30 mg PO BEDTIME [facility] Last Admin: 06/07/22 21:58 Dose: 30 mg Senna (Sennosides 8.6 Mg Tablet) 17.2 mg PO BEDTIME PRN PRN Reason: constipation Tamsulosin HCl (Tamsulosin Hcl 0.4 Mg Capsule) 0.4 mg PO DAILY [facility] Last Admin: 06/07/22 08:57 Dose: 0.4 mg Trazodone HCl (Trazodone Hcl 50 Mg Tablet) 50 mg PO BEDTIME MRX1 PRN PRN Reason: Insomnia Last Admin: 06/04/22 20:54 Dose: 50 mg Vortioxetine (Vortioxetine Hydrobromide 20 Mg Tablet) 20 mg PO DAILY [facility] Last Admin: 06/07/22 08:57 Dose: 20 mg Home Medications Medication Instructions Recorded Confirmed Last Taken Type clozapine 50 mg tablet 1 tab PO BEDTIME 04/11/22 04/11/22 04/10/22 History finasteride 5 mg tablet 1 tab PO DAILY 04/11/22 04/11/22 Unknown History lithium carbonate 300 mg 1 tab PO BEDTIME 04/11/22 04/11/22 04/10/22 History tablet,extended release mirtazapine 30 mg tablet 1 tab PO BEDTIME 04/11/22 04/11/22 Unknown History tamsulosin 0.4 mg capsule 1 cap PO DAILY 04/11/22 04/11/22 Unknown History venlafaxine 75 mg capsule,extended 1 cap PO QAM 04/11/22 04/11/22 Unknown History release 24 hr Exam Exam Date and Time: June 08, 2022 0651 Height,Weight and Vital Signs: Height 5 ft 6 in Weight 78 kg Last Vital Signs Temp 97.5 F 06/08/22 06:29 Pulse 78 06/08/22 06:29 Resp 18 06/08/22 06:29 BP 154/87 H 06/08/22 06:29 Pulse Ox 98 06/08/22 06:29 O2 Del Method Room Air 06/08/22 06:29 O2 Flow Rate 2 06/05/22 11:17 Pertinent Lab Results Pertinent Lab Results: Laboratory Tests 04/11/22 04/11/22 04/11/22 08:42 20:09 20:09 WBC RBC Hgb Hct MCV MCH MCHC RDW Plt Count MPV Immature Gran % (Auto) Neut % (Auto) Lymph % (Auto) Tucker % (Auto) Eos % (Auto) Baso % (Auto) Lymph # (Auto) Tucker # (Auto) Eos # (Auto) Baso # (Auto) Abs Immat Gran (auto) Absolute Neuts (auto) 3.7 Absolute Nucleated RBC Nucleated RBC % (auto) Sodium 144 Potassium 4.4 Chloride 112 H Carbon Dioxide 25 Anion Gap 11 L BUN 11 Creatinine 1.06 Estim Creat Clear Calc 63.2 Estimated GFR > 60 POC Glucose Random Glucose 165 H Fasting Glucose Estimat Average Glucose 108 Hemoglobin A1c % 5.4 Calcium 8.7 Total Bilirubin 0.5 Direct Bilirubin 0.2 AST 13 ALT 17 Alkaline Phosphatase 79 Total Protein 5.3 L Albumin 3.4 L Triglycerides 122 Cholesterol 100 LDL Cholesterol, Calc 47 HDL Cholesterol 29 Vitamin B12 505 Folate 14.5 TSH 2.24 Urine Color Urine Appearance Urine pH Ur Specific [place] Urine Protein Urine Glucose (UA) Urine Ketones Urine Blood Urine Nitrite Ur Leukocyte Esterase Urine RBC Urine WBC Ur Squamous Epith Cells Urine Bacteria Hyaline Casts Clozapine Norclozapine [place] 04/11/22 04/16/22 04/16/22 20:09 08:12 08:12 WBC RBC Hgb Hct MCV MCH MCHC RDW Plt Count MPV Immature Gran % (Auto) Neut % (Auto) Lymph % (Auto) Tucker % (Auto) Eos % (Auto) Baso % (Auto) Lymph # (Auto) Tucker # (Auto) Eos # (Auto) Baso # (Auto) Abs Immat Gran (auto) Absolute Neuts (auto) Absolute Nucleated RBC Nucleated RBC % (auto) Sodium 142 Potassium 4.3 Chloride 109 H Carbon Dioxide 27 Anion Gap 10 L BUN 12 Creatinine 0.99 Estim Creat Clear Calc 67.7 Estimated GFR > 60 POC Glucose Random Glucose 151 H Fasting Glucose Estimat Average Glucose Hemoglobin A1c % Calcium 9.0 Total Bilirubin Direct Bilirubin AST ALT Alkaline Phosphatase Total Protein Albumin Triglycerides Cholesterol LDL Cholesterol, Calc HDL Cholesterol Vitamin B12 Folate TSH 3.41 Urine Color Urine Appearance Urine pH Ur Specific [place] Urine Protein Urine Glucose (UA) Urine Ketones Urine Blood Urine Nitrite Ur Leukocyte Esterase Urine RBC Urine WBC Ur Squamous Epith Cells Urine Bacteria Hyaline Casts Clozapine Norclozapine [place] 0.48 L 0.77 04/18/22 04/22/22 04/22/22 06:54 09:15 14:25 WBC RBC Hgb Hct MCV MCH MCHC RDW Plt Count MPV Immature Gran % (Auto) Neut % (Auto) Lymph % (Auto) Tucker % (Auto) Eos % (Auto) Baso % (Auto) Lymph # (Auto) Tucker # (Auto) Eos # (Auto) Baso # (Auto) Abs Immat Gran (auto) Absolute Neuts (auto) 4.8 Absolute Nucleated RBC Nucleated RBC % (auto) Sodium 142 Potassium 3.9 Chloride 110 H Carbon Dioxide 27 Anion Gap 9 L BUN 13 Creatinine 1.07 Estim Creat Clear Calc 62.6 Estimated GFR > 60 POC Glucose Random Glucose 190 H Fasting Glucose Estimat Average Glucose Hemoglobin A1c % Calcium 8.7 Total Bilirubin 0.6 Direct Bilirubin AST 16 ALT 29 Alkaline Phosphatase 72 Total Protein 5.2 L Albumin 3.5 Triglycerides Cholesterol LDL Cholesterol, Calc HDL Cholesterol Vitamin B12 Folate TSH Urine Color Yellow Urine Appearance Clear Urine pH 6.5 Ur Specific [place] <= 1.005 Urine Protein Negative Urine Glucose (UA) Negative Urine Ketones Negative Urine Blood Trace H Urine Nitrite Negative Ur Leukocyte Esterase Large (3+) H Urine RBC 0-2 Urine WBC >50 H Ur Squamous Epith Cells 0-2 Urine Bacteria None Seen Hyaline Casts 0-2 Clozapine Norclozapine [place] 04/25/22 04/30/22 04/30/22 03:33 07:45 07:45 WBC RBC Hgb Hct MCV MCH MCHC RDW Plt Count MPV Immature Gran % (Auto) Neut % (Auto) Lymph % (Auto) Tucker % (Auto) Eos % (Auto) Baso % (Auto) Lymph # (Auto) Tucker # (Auto) Eos # (Auto) Baso # (Auto) Abs Immat Gran (auto) Absolute Neuts (auto) 3.7 Absolute Nucleated RBC Nucleated RBC % (auto) Sodium Potassium Chloride Carbon Dioxide Anion Gap BUN Creatinine Estim Creat Clear Calc Estimated GFR POC Glucose Random Glucose Fasting Glucose Estimat Average Glucose 105 Hemoglobin A1c % 5.3 Calcium Total Bilirubin Direct Bilirubin AST ALT Alkaline Phosphatase Total Protein Albumin Triglycerides Cholesterol LDL Cholesterol, Calc HDL Cholesterol Vitamin B12 Folate TSH Urine Color Urine Appearance Urine pH Ur Specific [place] Urine Protein Urine Glucose (UA) Urine Ketones Urine Blood Urine Nitrite Ur Leukocyte Esterase Urine RBC Urine WBC Ur Squamous Epith Cells Urine Bacteria Hyaline Casts Clozapine 338 Norclozapine 216 [place] 05/01/22 05/01/22 05/02/22 07:07 07:07 06:07 WBC RBC Hgb Hct MCV MCH MCHC RDW Plt Count MPV Immature Gran % (Auto) Neut % (Auto) Lymph % (Auto) Tucker % (Auto) Eos % (Auto) Baso % (Auto) Lymph # (Auto) Tucker # (Auto) Eos # (Auto) Baso # (Auto) Abs Immat Gran (auto) Absolute Neuts (auto) 2.8 Absolute Nucleated RBC Nucleated RBC % (auto) Sodium 141 Potassium 4.4 Chloride 110 H Carbon Dioxide 27 Anion Gap 8 L BUN 15 Creatinine 0.98 Estim Creat Clear Calc 69.2 Estimated GFR > 60 POC Glucose Random Glucose 105 Fasting Glucose Estimat Average Glucose Hemoglobin A1c % Calcium 8.8 Total Bilirubin Direct Bilirubin AST ALT Alkaline Phosphatase Total Protein Albumin Triglycerides Cholesterol LDL Cholesterol, Calc HDL Cholesterol Vitamin B12 Folate TSH 3.76 Urine Color Urine Appearance Urine pH Ur Specific [place] Urine Protein Urine Glucose (UA) Urine Ketones Urine Blood Urine Nitrite Ur Leukocyte Esterase Urine RBC Urine WBC Ur Squamous Epith Cells Urine Bacteria Hyaline Casts Clozapine Norclozapine [place] 0.88 05/05/22 05/05/22 05/09/22 07:54 07:54 08:11 WBC 5.8 RBC 4.61 Hgb 13.7 L Hct 43.1 MCV 93.5 MCH 29.7 MCHC 31.8 RDW 12.8 Plt Count 207 MPV 9.0 L Immature Gran % (Auto) 0.3 Neut % (Auto) 55.4 Lymph % (Auto) 32.2 Tucker % (Auto) 9.7 Eos % (Auto) 1.9 Baso % (Auto) 0.5 Lymph # (Auto) 1.9 Tucker # (Auto) 0.6 Eos # (Auto) 0.1 Baso # (Auto) 0.0 Abs Immat Gran (auto) 0.02 Absolute Neuts (auto) 3.2 4.1 Absolute Nucleated RBC 0.000 Nucleated RBC % (auto) 0.0 Sodium 141 Potassium 4.3 Chloride 107 Carbon Dioxide 28 Anion Gap 10 L BUN 17 H Creatinine 1.03 Estim Creat Clear Calc 65.9 Estimated GFR > 60 POC Glucose Random Glucose Fasting Glucose 130 H Estimat Average Glucose Hemoglobin A1c % Calcium 9.0 Total Bilirubin 0.9 Direct Bilirubin AST 18 ALT 37 Alkaline Phosphatase 90 Total Protein 5.6 L Albumin 3.8 Triglycerides Cholesterol LDL Cholesterol, Calc HDL Cholesterol Vitamin B12 Folate TSH Urine Color Urine Appearance Urine pH Ur Specific [place] Urine Protein Urine Glucose (UA) Urine Ketones Urine Blood Urine Nitrite Ur Leukocyte Esterase Urine RBC Urine WBC Ur Squamous Epith Cells Urine Bacteria Hyaline Casts Clozapine Norclozapine [place] 05/16/22 05/18/22 05/19/22 06:40 09:10 19:27 WBC RBC Hgb Hct MCV MCH MCHC RDW Plt Count MPV Immature Gran % (Auto) Neut % (Auto) Lymph % (Auto) Tucker % (Auto) Eos % (Auto) Baso % (Auto) Lymph # (Auto) Tucker # (Auto) Eos # (Auto) Baso # (Auto) Abs Immat Gran (auto) Absolute Neuts (auto) 3.6 Absolute Nucleated RBC Nucleated RBC % (auto) Sodium Potassium Chloride Carbon Dioxide Anion Gap BUN Creatinine Estim Creat Clear Calc Estimated GFR POC Glucose 133 H Random Glucose Fasting Glucose Estimat Average Glucose Hemoglobin A1c % Calcium Total Bilirubin Direct Bilirubin AST ALT Alkaline Phosphatase Total Protein Albumin Triglycerides Cholesterol LDL Cholesterol, Calc HDL Cholesterol Vitamin B12 Folate TSH Urine Color Yellow Urine Appearance Clear Urine pH 6.5 Ur Specific [place] 1.015 Urine Protein Negative Urine Glucose (UA) Negative Urine Ketones Negative Urine Blood Negative Urine Nitrite Negative Ur Leukocyte Esterase Negative Urine RBC 0-2 Urine WBC 0-5 Ur Squamous Epith Cells 0-2 Urine Bacteria None Seen Hyaline Casts 0-2 Clozapine Norclozapine [place] 05/23/22 05/28/22 05/28/22 07:27 07:54 07:54 WBC RBC Hgb Hct MCV MCH MCHC RDW Plt Count MPV Immature Gran % (Auto) Neut % (Auto) Lymph % (Auto) Tucker % (Auto) Eos % (Auto) Baso % (Auto) Lymph # (Auto) Tucker # (Auto) Eos # (Auto) Baso # (Auto) Abs Immat Gran (auto) Absolute Neuts (auto) 3.4 Absolute Nucleated RBC Nucleated RBC % (auto) Sodium 140 Potassium 4.3 Chloride 107 Carbon Dioxide 29 Anion Gap 8 L BUN 16 Creatinine 1.17 Estim Creat Clear Calc 57.8 Estimated GFR > 60 POC Glucose Random Glucose 134 H Fasting Glucose Estimat Average Glucose 105 Hemoglobin A1c % 5.3 Calcium 9.5 Total Bilirubin Direct Bilirubin AST ALT Alkaline Phosphatase Total Protein Albumin Triglycerides 152 Cholesterol 135 LDL Cholesterol, Calc 64 HDL Cholesterol 41 Vitamin B12 Folate TSH 4.93 H Urine Color Urine Appearance Urine pH Ur Specific [place] Urine Protein Urine Glucose (UA) Urine Ketones Urine Blood Urine Nitrite Ur Leukocyte Esterase Urine RBC Urine WBC Ur Squamous Epith Cells Urine Bacteria Hyaline Casts Clozapine Norclozapine [place] 05/28/22 05/30/22 06/06/22 07:54 06:54 06:14 WBC RBC Hgb Hct MCV MCH MCHC RDW Plt Count MPV Immature Gran % (Auto) Neut % (Auto) Lymph % (Auto) Tucker % (Auto) Eos % (Auto) Baso % (Auto) Lymph # (Auto) Tucker # (Auto) Eos # (Auto) Baso # (Auto) Abs Immat Gran (auto) Absolute Neuts (auto) 3.8 2.8 Absolute Nucleated RBC Nucleated RBC % (auto) Sodium Potassium Chloride Carbon Dioxide Anion Gap BUN Creatinine Estim Creat Clear Calc Estimated GFR POC Glucose Random Glucose Fasting Glucose Estimat Average Glucose Hemoglobin A1c % Calcium Total Bilirubin Direct Bilirubin AST ALT Alkaline Phosphatase Total Protein Albumin Triglycerides Cholesterol LDL Cholesterol, Calc HDL Cholesterol Vitamin B12 Folate TSH Urine Color Urine Appearance Urine pH Ur Specific [place] Urine Protein Urine Glucose (UA) Urine Ketones Urine Blood Urine Nitrite Ur Leukocyte Esterase Urine RBC Urine WBC Ur Squamous Epith Cells Urine Bacteria Hyaline Casts Clozapine Norclozapine [place] 0.87 Airway Mallampati Class: II TM Dist: >3cm Neck ROM: Full Heart: rrr Lungs: cta Assessment and Plan Assessment Anesthesia Assessment: Anesthesia Plan Discussed and Chart Reviewed Final Anesthetic Review Family History of Problems with Anesthesia: No History of Problems with Anesthesia: No NPO: Yes ASA Class: III Final Preanesthetic Review: No Changes in Pt Med Stat, Meds/Allgs Chart Reviewed and Consent Obtained/Reviewed Patient Risk: Intermediate Procedure Risk: Intermediate Anesthetic Plan Anesthetic Plan: GA Disposition: Standard PACU
--- NOTE | 2022-06-08 06:59 | MHC.SHP ---
Pre-Procedural Eval Section A Date of Service: 06/08/22 The patient is an INPATIENT: Yes Changes since office visit: No Cold of Flu in the past 2 weeks, No New Medical Problems, No Changes in Medication and No Patient answered all questions The History & Physical has been completed within 30 days and I have reviewed it.: Yes Section B Chief Complaint: MDD Recurrent Episode Severe PTSD Allergies: Allergies Allergy/AdvReac Type Severity Reaction Status Date / Time levofloxacin [From Levaquin] Allergy Rash Verified 05/08/22 07:07 Penicillins Allergy Rash Verified 05/08/22 07:07 Plan I have reviewed the history and physical and performed a pertinent physical examination on my patient. No changes have occurred unless specified. Time Spent With Patient Time: Total time managing care of this patient today ____ minutes.
--- NOTE | 2022-06-08 07:18 | HO.ECTPROC ---
ECT Procedure Note Diagnosis/Treatment Date of Service: 06/08/22 Diagnosis: Schizoaffective Disorder Previous ECT Date: 06/05/22 Current Treatment Number: 11 Treatment: Series Interval Clinical Notes: The patient's mood is stable, flat but no active suicidal ideation. Time: Total time managing care of this patient today _30___ minutes. ECT Settings Device: THYMATRON DGx Electrode Placement: Right Unilateral Program/Pulse Width: 0.50 Energy Percent: 100 Seizure Duration By EEG (in seconds): 0 (computer didn't registered but sz activity until 41s) By Motor Observation (in seconds): 17 Medications Administration General Anesthetic: Etomidate (14) Muscle Relaxant: Succinylcholine (100) Ancillary Medications Analgesics: Torodol - Pre ECT Anti-emetics: Zofran - Pre ECT Miscillaneous Medications: Flumazenil Airway Management Airway Management: Bag Mask Ventilation Treatment Recommendations No Changes Recommended: No change Pt Tolerated Procedure w/o Issue: Yes
[2022-06-08] MEDS: Finasteride 5 MG TABLET PO (09:09)
[2022-06-08] MEDS: Tamsulosin HCL 0.4 MG CAPSULE PO (09:09)
[2022-06-08] MEDS: Vortioxetine Hydrobromide 20 MG TABLET PO (09:09)
[2022-06-08] MEDS: LORazepam 0.5 MG TABLET PO ×3 (09:10→20:00)
--- NOTE | 2022-06-08 13:59 | HO.PSYCHPN ---
Subjective Subjective Date of Service: 06/08/22 Reason For Visit: MDD Recurrent Episode Severe PTSD Subjective Notes: Conditional Voluntary Interim History: The nursing staff reported the patient had been compliant with treatment, today he had ECT. After the procedure the patient was very sedated and stable to the time on his room and slightly confused but overall he denies suicidal ideation. Mental Status Exam Mental Status Exam Patient Appearance: Well Grooomed and Appropriate Patient Orientation: Person Level of Consciousness: Awake and Appropriate Patient Behavior: Guarded and Passive Mood Description: Withdrawn and Constricted Affect Description: Calm Patient Cognition Impaired: Yes Ability to Follow Directions: Good Speech Pattern: Clear Hallucinations: None Delusions: Not Present Thought Process: Linear Thought Content: positive for [place] and positive for Circumstantial Judgement: Fair Diagnostics Vital Signs (24Hr): Vital Signs - 24 hr 06/07/22 18:00 06/08/22 06:06 06/08/22 06:29 Temperature 98.3 F 97.7 F 97.5 F Pulse Rate 78 77 78 Respiratory Rate 17 16 18 Blood Pressure 141/73 H 125/68 154/87 H Pulse Oximetry 96 98 98 Oxygen Delivery Method Room Air Room Air Room Air Oxygen Flow Rate 06/08/22 07:43 06/08/22 07:48 06/08/22 07:53 Temperature 97.4 F Pulse Rate 85 80 80 Respiratory Rate 17 20 22 H Blood Pressure 168/90 H 156/65 H 141/97 H Pulse Oximetry 99 98 99 Oxygen Delivery Method Nasal Cannula with ETCO2 Nasal Cannula with ETCO2 Nasal Cannula with ETCO2 Oxygen Flow Rate 2 2 2 06/08/22 07:58 06/08/22 08:13 06/08/22 08:28 Temperature 97.7 F Pulse Rate 77 80 76 Respiratory Rate 15 16 18 Blood Pressure 149/90 H 156/86 H 153/94 H Pulse Oximetry 99 98 97 Oxygen Delivery Method Nasal Cannula with ETCO2 Room Air Room Air Oxygen Flow Rate 2 BMI result Body Mass Index 27.7 Labs 05/05/22 07:54 05/28/22 07:54 Imaging Radiology Impressions: ITS Impressions Brain MRI 04/24/22 09:39 IMPRESSION: - No acute intracranial findings. No acute infarcts. - There is global cerebral volume loss and there is mild chronic microangiopathy. Medications Medications Current Medications Acetaminophen (Acetaminophen 325 Mg Tablet) 650 mg PO Q6H PRN PRN Reason: Headache/Pain Mild Scale (1-3) Last Admin: 06/07/22 18:24 Dose: 650 mg Al Hydroxide/Mg Hydroxide (Magnesium Hydrox/Alum Hydrox 30 Ml Oral.Susp) 30 ml PO Q6H PRN PRN Reason: Heartburn/Nausea Atorvastatin Calcium (Atorvastatin Calcium 20 Mg Tablet) 20 mg PO BEDTIME [facility] Last Admin: 06/07/22 22:21 Dose: 20 mg Clozapine (Clozapine 100 Mg Tablet) 200 mg PO BEDTIME [facility] Last Admin: 06/07/22 21:57 Dose: 200 mg Finasteride (Finasteride 5 Mg Tablet) 5 mg PO DAILY [facility] Last Admin: 06/08/22 09:09 Dose: 5 mg [place] Carbonate ([place] Carbonate Er 300 Mg Tablet.Er) 600 mg PO BEDTIME [facility] Last Admin: 06/07/22 21:58 Dose: 600 mg Lorazepam (Lorazepam 0.5 Mg Tablet) 0.5 mg PO TID [facility] Last Admin: 06/08/22 09:10 Dose: 0.5 mg Lorazepam (Lorazepam 1 Mg Tablet) 1 mg PO Q4H PRN PRN Reason: Anxiety Magnesium Hydroxide (Milk Of Magnesia 30 Ml Oral.Susp) 30 ml PO DAILY PRN PRN Reason: Constipation Melatonin (Melatonin 3 Mg Tablet) 6 mg PO BEDTIME [facility] Last Admin: 06/07/22 21:58 Dose: 6 mg Mirtazapine (Mirtazapine 30 Mg Tablet) 30 mg PO BEDTIME [facility] Last Admin: 06/07/22 21:58 Dose: 30 mg Senna (Sennosides 8.6 Mg Tablet) 17.2 mg PO BEDTIME PRN PRN Reason: constipation Tamsulosin HCl (Tamsulosin Hcl 0.4 Mg Capsule) 0.4 mg PO DAILY [facility] Last Admin: 06/08/22 09:09 Dose: 0.4 mg Trazodone HCl (Trazodone Hcl 50 Mg Tablet) 50 mg PO BEDTIME MRX1 PRN PRN Reason: Insomnia Last Admin: 06/04/22 20:54 Dose: 50 mg Vortioxetine (Vortioxetine Hydrobromide 20 Mg Tablet) 20 mg PO DAILY [facility] Last Admin: 06/08/22 09:09 Dose: 20 mg Allergies Allergies Allergy/AdvReac Type Severity Reaction Status Date / Time levofloxacin [From Levaquin] Allergy Rash Verified 05/08/22 07:07 Penicillins Allergy Rash Verified 05/08/22 07:07 Assessment & Plan Assessment & Plan (1) Major depressive disorder with psychotic features: Status: Acute Code(s): F32.3 - Major depressive disorder, single episode, severe with psychotic features Plan 72-year-old male with history of anxiety/depression, glaucoma, hypercholesterolemia, hypertension recently treated for UTI admitted to [facility] with consult placed to Medicine for ECT evaluation. hospital course: 05/23 patient reports good and that depression is gone; feeling more clear minded; continue current regimen 05/24 continue current tx plan -npo after midnight -ECT on 05/25 (confirmed by Dr. Womack) 05/30/2022 Continue plan of care discharge planning 05/31/2022 Continue Trintellix monitor response to ECT patient somewhat difficult to read states he feels much improved denies command hallucinations Plan 1. Continue with same treatment. 2. Continue ECT with regular right unilateral. Now changed to twice a week 3. Reassessment with results. 4. Increase Trintellix up to 20 mg p.o. daily starting May 21. Reason for continued inpatient stay Substantial Risk for: inability to function, rapid decompensation and med/psych decompensation Time Spent With Patient Time: Total time managing care of this patient today __20__ minutes.
[2022-06-08] MEDS: Melatonin 3 MG TABLET 6 MG PO (19:59)
[2022-06-08] MEDS: Mirtazapine 30 MG TABLET PO (19:59)
[2022-06-08] MEDS: cloZAPine 100 MG TABLET 200 MG PO (19:59)
[2022-06-08] MEDS: Atorvastatin Calcium 20 MG TABLET PO (19:59)
[2022-06-08] MEDS: Lithium Carbonate ER 300 MG TABLET.ER 600 MG PO (20:00)
[2022-06-09 06:00] VITALS: BP 156/88; PULSE 81; RESP 18; TEMP 36.4; O2SAT 97
[2022-06-09] MEDS: Tamsulosin HCL 0.4 MG CAPSULE PO (10:57)
[2022-06-09] MEDS: Vortioxetine Hydrobromide 20 MG TABLET PO (10:57)
[2022-06-09] MEDS: Finasteride 5 MG TABLET PO (10:57)
[2022-06-09] MEDS: LORazepam 0.5 MG TABLET PO ×3 (10:57→19:46)
--- NOTE | 2022-06-09 14:02 | P.PNPSI_ITS ---
Subjective Subjective Date of Service: 06/09/22 Reason For Visit: MDD Recurrent Episode Severe PTSD Subjective Notes: Conditional Voluntary Interim History: The nursing staff reported the patient feels safe, medication compliant no new complaints. On interview the patient states that he is feeling okay no evidence of depression. His affect is brighter. We will continue treatment and discharged the 1st week of June. Mental Status Exam Mental Status Exam Patient Appearance: Well Grooomed and Appropriate Patient Orientation: Person and Situation Level of Consciousness: Awake and Appropriate Patient Behavior: Guarded and Passive Mood Description: Withdrawn Affect Description: Constricted Patient Cognition Impaired: Yes Ability to Follow Directions: Good Speech Pattern: Clear Hallucinations: None Delusions: Not Present Thought Process: Linear Thought Content: positive for [place] and positive for Circumstantial Judgement: Fair Diagnostics Vital Signs (24Hr): Vital Signs - 24 hr 06/08/22 22:15 06/09/22 06:00 Temperature 98.1 F 97.6 F Pulse Rate 80 81 Respiratory Rate 18 18 Blood Pressure 122/67 156/88 H Pulse Oximetry 96 97 Oxygen Delivery Method Room Air Room Air BMI result Body Mass Index 27.7 Labs 05/05/22 07:54 05/28/22 07:54 Imaging Radiology Impressions: ITS Impressions Brain MRI 04/24/22 09:39 IMPRESSION: - No acute intracranial findings. No acute infarcts. - There is global cerebral volume loss and there is mild chronic microangiopathy. Medications Medications Current Medications Acetaminophen (Acetaminophen 325 Mg Tablet) 650 mg PO Q6H PRN PRN Reason: Headache/Pain Mild Scale (1-3) Last Admin: 06/07/22 18:24 Dose: 650 mg Al Hydroxide/Mg Hydroxide (Magnesium Hydrox/Alum Hydrox 30 Ml Oral.Susp) 30 ml PO Q6H PRN PRN Reason: Heartburn/Nausea Atorvastatin Calcium (Atorvastatin Calcium 20 Mg Tablet) 20 mg PO BEDTIME [facility] Last Admin: 06/08/22 19:59 Dose: 20 mg Clozapine (Clozapine 100 Mg Tablet) 200 mg PO BEDTIME [facility] Last Admin: 06/08/22 19:59 Dose: 200 mg Finasteride (Finasteride 5 Mg Tablet) 5 mg PO DAILY [facility] Last Admin: 06/09/22 10:57 Dose: 5 mg [place] Carbonate ([place] Carbonate Er 300 Mg Tablet.Er) 600 mg PO BEDTIME [facility] Last Admin: 06/08/22 20:00 Dose: 600 mg Lorazepam (Lorazepam 0.5 Mg Tablet) 0.5 mg PO TID [facility] Last Admin: 06/09/22 10:57 Dose: 0.5 mg Lorazepam (Lorazepam 1 Mg Tablet) 1 mg PO Q4H PRN PRN Reason: Anxiety Magnesium Hydroxide (Milk Of Magnesia 30 Ml Oral.Susp) 30 ml PO DAILY PRN PRN Reason: Constipation Melatonin (Melatonin 3 Mg Tablet) 6 mg PO BEDTIME [facility] Last Admin: 06/08/22 19:59 Dose: 6 mg Mirtazapine (Mirtazapine 30 Mg Tablet) 30 mg PO BEDTIME [facility] Last Admin: 06/08/22 19:59 Dose: 30 mg Senna (Sennosides 8.6 Mg Tablet) 17.2 mg PO BEDTIME PRN PRN Reason: constipation Tamsulosin HCl (Tamsulosin Hcl 0.4 Mg Capsule) 0.4 mg PO DAILY [facility] Last Admin: 06/09/22 10:57 Dose: 0.4 mg Trazodone HCl (Trazodone Hcl 50 Mg Tablet) 50 mg PO BEDTIME MRX1 PRN PRN Reason: Insomnia Last Admin: 06/04/22 20:54 Dose: 50 mg Vortioxetine (Vortioxetine Hydrobromide 20 Mg Tablet) 20 mg PO DAILY [facility] Last Admin: 06/09/22 10:57 Dose: 20 mg Allergies Allergies Allergy/AdvReac Type Severity Reaction Status Date / Time levofloxacin [From Levaquin] Allergy Rash Verified 05/08/22 07:07 Penicillins Allergy Rash Verified 05/08/22 07:07 Assessment & Plan Assessment & Plan (1) Major depressive disorder with psychotic features: Status: Acute Code(s): F32.3 - Major depressive disorder, single episode, severe with psychotic features Plan 72-year-old male with history of anxiety/depression, glaucoma, hypercholesterolemia, hypertension recently treated for UTI admitted to [facility] with consult placed to Medicine for ECT evaluation. hospital course: 05/23 patient reports good and that depression is gone; feeling more clear minded; continue current regimen 05/24 continue current tx plan -npo after midnight -ECT on 05/25 (confirmed by Dr. Womack) 05/30/2022 Continue plan of care discharge planning 05/31/2022 Continue Trintellix monitor response to ECT patient somewhat difficult to read states he feels much improved denies command hallucinations Plan 1. Continue with same treatment. 2. Continue ECT with regular right unilateral. Now changed to twice a week 3. Reassessment with results. 4. Increase Trintellix up to 20 mg p.o. daily starting May 21. Reason for continued inpatient stay Substantial Risk for: inability to function, rapid decompensation and med/psych decompensation Time Spent With Patient Time: Total time managing care of this patient today __20__ minutes.
[2022-06-09 18:00] VITALS: BP 165/66; PULSE 82
[2022-06-09] MEDS: Mirtazapine 30 MG TABLET PO (19:45)
[2022-06-09] MEDS: Lithium Carbonate ER 300 MG TABLET.ER 600 MG PO (19:45)
[2022-06-09] MEDS: cloZAPine 100 MG TABLET 200 MG PO (19:45)
[2022-06-09] MEDS: Atorvastatin Calcium 20 MG TABLET PO (19:45)
[2022-06-09] MEDS: Melatonin 3 MG TABLET 6 MG PO (19:46)
[2022-06-10 08:00] VITALS: BP 137/80; PULSE 83; RESP 18; TEMP 36.5; O2SAT 96
[2022-06-10] MEDS: Tamsulosin HCL 0.4 MG CAPSULE PO (10:27)
[2022-06-10] MEDS: Vortioxetine Hydrobromide 20 MG TABLET PO (10:27)
[2022-06-10] MEDS: Finasteride 5 MG TABLET PO (10:27)
[2022-06-10] MEDS: LORazepam 0.5 MG TABLET PO ×3 (10:27→21:54)
[2022-06-10] MEDS: Melatonin 3 MG TABLET 6 MG PO (21:54)
[2022-06-10] MEDS: Mirtazapine 30 MG TABLET PO (21:54)
[2022-06-10] MEDS: cloZAPine 100 MG TABLET 200 MG PO (21:54)
[2022-06-10] MEDS: Lithium Carbonate ER 300 MG TABLET.ER 600 MG PO (21:54)
[2022-06-10] MEDS: Atorvastatin Calcium 20 MG TABLET PO (21:54)
[2022-06-10 21:58] VITALS: BP 121/60; PULSE 75; TEMP 36.7; O2SAT 94
--- NOTE | 2022-06-10 22:13 | HO.PSYCHPN ---
Subjective Subjective Date of Service: 06/10/22 Reason For Visit: MDD Recurrent Episode Severe PTSD Subjective Notes: Conditional Voluntary Guardianship: No Medical Problems Affecting Mental Status: No Interim History: pt has improved mood but flat difficulty with memory processing but not delerious Medication Compliance: Yes Side effects from medications: No Attending Groups: Yes Review of Systems Acute medical concerns: No Mental Status Exam Mental Status Exam Patient Appearance: Well Grooomed and Appropriate Patient Orientation: Person and Situation Level of Consciousness: Awake and Appropriate Patient Behavior: Guarded and Passive Mood Description: Withdrawn and Flat Affect Description: Constricted Patient Cognition Impaired: Yes Ability to Follow Directions: Good Speech Pattern: Clear Memory Description: Episodic Impaired Hallucinations: None Delusions: Not Present Thought Process: Linear Thought Content: positive for Circumstantial and positive for Poverty of Content Judgement: Fair Judgement and Insight: no si no psychotic s Diagnostics Vital Signs (24Hr): Vital Signs - 24 hr 06/10/22 08:00 06/10/22 21:58 Temperature 97.7 F 98.1 F Pulse Rate 83 75 Respiratory Rate 18 Blood Pressure 137/80 121/60 Pulse Oximetry 96 94 Oxygen Delivery Method Room Air Room Air BMI result Body Mass Index 27.7 Labs 05/05/22 07:54 05/28/22 07:54 Imaging Radiology Impressions: ITS Impressions Brain MRI 04/24/22 09:39 IMPRESSION: - No acute intracranial findings. No acute infarcts. - There is global cerebral volume loss and there is mild chronic microangiopathy. Medications Medications Current Medications Acetaminophen (Acetaminophen 325 Mg Tablet) 650 mg PO Q6H PRN PRN Reason: Headache/Pain Mild Scale (1-3) Last Admin: 06/07/22 18:24 Dose: 650 mg Al Hydroxide/Mg Hydroxide (Magnesium Hydrox/Alum Hydrox 30 Ml Oral.Susp) 30 ml PO Q6H PRN PRN Reason: Heartburn/Nausea Atorvastatin Calcium (Atorvastatin Calcium 20 Mg Tablet) 20 mg PO BEDTIME [facility] Last Admin: 06/10/22 21:54 Dose: 20 mg Clozapine (Clozapine 100 Mg Tablet) 200 mg PO BEDTIME [facility] Last Admin: 06/10/22 21:54 Dose: 200 mg Finasteride (Finasteride 5 Mg Tablet) 5 mg PO DAILY [facility] Last Admin: 06/10/22 10:27 Dose: 5 mg [place] Carbonate ([place] Carbonate Er 300 Mg Tablet.Er) 600 mg PO BEDTIME [facility] Last Admin: 06/10/22 21:54 Dose: 600 mg Lorazepam (Lorazepam 0.5 Mg Tablet) 0.5 mg PO TID [facility] Last Admin: 06/10/22 21:54 Dose: 0.5 mg Lorazepam (Lorazepam 1 Mg Tablet) 1 mg PO Q4H PRN PRN Reason: Anxiety Magnesium Hydroxide (Milk Of Magnesia 30 Ml Oral.Susp) 30 ml PO DAILY PRN PRN Reason: Constipation Melatonin (Melatonin 3 Mg Tablet) 6 mg PO BEDTIME [facility] Last Admin: 06/10/22 21:54 Dose: 6 mg Mirtazapine (Mirtazapine 30 Mg Tablet) 30 mg PO BEDTIME [facility] Last Admin: 06/10/22 21:54 Dose: 30 mg Senna (Sennosides 8.6 Mg Tablet) 17.2 mg PO BEDTIME PRN PRN Reason: constipation Tamsulosin HCl (Tamsulosin Hcl 0.4 Mg Capsule) 0.4 mg PO DAILY [facility] Last Admin: 06/10/22 10:27 Dose: 0.4 mg Trazodone HCl (Trazodone Hcl 50 Mg Tablet) 50 mg PO BEDTIME MRX1 PRN PRN Reason: Insomnia Last Admin: 06/04/22 20:54 Dose: 50 mg Vortioxetine (Vortioxetine Hydrobromide 20 Mg Tablet) 20 mg PO DAILY [facility] Last Admin: 06/10/22 10:27 Dose: 20 mg Allergies Allergies Allergy/AdvReac Type Severity Reaction Status Date / Time levofloxacin [From Levaquin] Allergy Rash Verified 05/08/22 07:07 Penicillins Allergy Rash Verified 05/08/22 07:07 Assessment & Plan Assessment & Plan (1) Major depressive disorder with psychotic features: Status: Acute Code(s): F32.3 - Major depressive disorder, single episode, severe with psychotic features Plan 72-year-old male with history of anxiety/depression, glaucoma, hypercholesterolemia, hypertension recently treated for UTI admitted to [facility] psych with consult placed to Medicine for ECT evaluation. hospital course: 05/23 patient reports good and that depression is gone; feeling more clear minded; continue current regimen 05/24 continue current tx plan -npo after midnight -ECT on 05/25 (confirmed by Dr. Womack) 05/30/2022 Continue plan of care discharge planning 05/31/2022 Continue Trintellix monitor response to ECT patient somewhat difficult to read states he feels much improved denies command hallucinations Plan 1. Continue with same treatment. 2. Continue ECT with regular right unilateral. Now changed to twice a week 3. Reassessment with results. 4. Increase Trintellix up to 20 mg p.o. daily starting May 21. 06/10/21 discussed d/c plans encourage oob Patient educated on: ECT and therapeutic strategies Informed Consent: understands Reason for continued inpatient stay Substantial Risk for: rapid decompensation and med/psych decompensation Time Spent With Patient Time: Total time managing care of this patient today ____ minutes.
[2022-06-11] MEDS: Finasteride 5 MG TABLET PO (08:31)
[2022-06-11] MEDS: LORazepam 0.5 MG TABLET PO ×2 (08:32→14:27)
[2022-06-11] MEDS: Tamsulosin HCL 0.4 MG CAPSULE PO (08:32)
[2022-06-11] MEDS: Vortioxetine Hydrobromide 20 MG TABLET PO (08:32)
[2022-06-11 08:33] VITALS: BP 113/73; PULSE 89; RESP 18; TEMP 36.5; O2SAT 98
--- NOTE | 2022-06-11 13:27 | HO.PSYCHPN ---
Subjective Subjective Date of Service: 06/11/22 Reason For Visit: MDD Recurrent Episode Severe PTSD Subjective Notes: Conditional Voluntary Interim History: The nursing staff reported the patient had been compliant with treatment, he slept well. The occupational therapist the patient goes to groups and he can be confused after ECT at times. The psychiatric social worker supervisor reported that we already have a good discharge plan for me 1st. On interview the patient denies new symptoms, waiting to finish ECT treatment. Mental Status Exam Mental Status Exam Patient Appearance: Well Grooomed and Appropriate Patient Orientation: Person and Situation Level of Consciousness: Awake and Appropriate Patient Behavior: Guarded and Passive Mood Description: Withdrawn Affect Description: Constricted Patient Cognition Impaired: Yes Ability to Follow Directions: Good Speech Pattern: Clear Hallucinations: None Delusions: Not Present Thought Process: Linear Thought Content: positive for Circumstantial and positive for Poverty of Content Judgement: Fair Diagnostics Vital Signs (24Hr): Vital Signs - 24 hr 06/10/22 21:58 06/11/22 08:33 Temperature 98.1 F 97.7 F Pulse Rate 75 89 Respiratory Rate 18 Blood Pressure 121/60 113/73 Pulse Oximetry 94 98 Oxygen Delivery Method Room Air Room Air BMI result Body Mass Index 27.7 Labs 05/05/22 07:54 05/28/22 07:54 Imaging Radiology Impressions: ITS Impressions Brain MRI 04/24/22 09:39 IMPRESSION: - No acute intracranial findings. No acute infarcts. - There is global cerebral volume loss and there is mild chronic microangiopathy. Medications Medications Current Medications Acetaminophen (Acetaminophen 325 Mg Tablet) 650 mg PO Q6H PRN PRN Reason: Headache/Pain Mild Scale (1-3) Last Admin: 06/07/22 18:24 Dose: 650 mg Al Hydroxide/Mg Hydroxide (Magnesium Hydrox/Alum Hydrox 30 Ml Oral.Susp) 30 ml PO Q6H PRN PRN Reason: Heartburn/Nausea Atorvastatin Calcium (Atorvastatin Calcium 20 Mg Tablet) 20 mg PO BEDTIME [facility] Last Admin: 06/10/22 21:54 Dose: 20 mg Clozapine (Clozapine 100 Mg Tablet) 200 mg PO BEDTIME [facility] Last Admin: 06/10/22 21:54 Dose: 200 mg Finasteride (Finasteride 5 Mg Tablet) 5 mg PO DAILY [facility] Last Admin: 06/11/22 08:31 Dose: 5 mg [place] Carbonate ([place] Carbonate Er 300 Mg Tablet.Er) 600 mg PO BEDTIME [facility] Last Admin: 06/10/22 21:54 Dose: 600 mg Lorazepam (Lorazepam 0.5 Mg Tablet) 0.5 mg PO TID [facility] Last Admin: 06/11/22 08:32 Dose: 0.5 mg Lorazepam (Lorazepam 1 Mg Tablet) 1 mg PO Q4H PRN PRN Reason: Anxiety Magnesium Hydroxide (Milk Of Magnesia 30 Ml Oral.Susp) 30 ml PO DAILY PRN PRN Reason: Constipation Melatonin (Melatonin 3 Mg Tablet) 6 mg PO BEDTIME [facility] Last Admin: 06/10/22 21:54 Dose: 6 mg Mirtazapine (Mirtazapine 30 Mg Tablet) 30 mg PO BEDTIME [facility] Last Admin: 06/10/22 21:54 Dose: 30 mg Senna (Sennosides 8.6 Mg Tablet) 17.2 mg PO BEDTIME PRN PRN Reason: constipation Tamsulosin HCl (Tamsulosin Hcl 0.4 Mg Capsule) 0.4 mg PO DAILY [facility] Last Admin: 06/11/22 08:32 Dose: 0.4 mg Trazodone HCl (Trazodone Hcl 50 Mg Tablet) 50 mg PO BEDTIME MRX1 PRN PRN Reason: Insomnia Last Admin: 06/04/22 20:54 Dose: 50 mg Vortioxetine (Vortioxetine Hydrobromide 20 Mg Tablet) 20 mg PO DAILY [facility] Last Admin: 06/11/22 08:32 Dose: 20 mg Allergies Allergies Allergy/AdvReac Type Severity Reaction Status Date / Time levofloxacin [From Levaquin] Allergy Rash Verified 05/08/22 07:07 Penicillins Allergy Rash Verified 05/08/22 07:07 Assessment & Plan Assessment & Plan (1) Major depressive disorder with psychotic features: Status: Acute Code(s): F32.3 - Major depressive disorder, single episode, severe with psychotic features Plan 72-year-old male with history of anxiety/depression, glaucoma, hypercholesterolemia, hypertension recently treated for UTI admitted to [facility] psych with consult placed to Medicine for ECT evaluation. hospital course: 05/23 patient reports good and that depression is gone; feeling more clear minded; continue current regimen 05/24 continue current tx plan -npo after midnight -ECT on 05/25 (confirmed by Dr. Womack) 05/30/2022 Continue plan of care discharge planning 05/31/2022 Continue Trintellix monitor response to ECT patient somewhat difficult to read states he feels much improved denies command hallucinations Plan 1. Continue with same treatment. 2. Continue ECT with regular right unilateral. Now changed to twice a week 3. Reassessment with results. 4. Increase Trintellix up to 20 mg p.o. daily starting May 21. Reason for continued inpatient stay Substantial Risk for: inability to function, rapid decompensation and med/psych decompensation Time Spent With Patient Time: Total time managing care of this patient today ___20_ minutes.
[2022-06-11 18:00] VITALS: BP 142/86; PULSE 75; RESP 18; TEMP 36.6; O2SAT 94
[2022-06-11] MEDS: Mirtazapine 30 MG TABLET PO (20:09)
[2022-06-11] MEDS: cloZAPine 100 MG TABLET 200 MG PO (20:10)
[2022-06-11] MEDS: Atorvastatin Calcium 20 MG TABLET PO (20:10)
[2022-06-11] MEDS: Lithium Carbonate ER 300 MG TABLET.ER 600 MG PO (20:10)
[2022-06-11] MEDS: Melatonin 3 MG TABLET 6 MG PO (20:10)
[2022-06-12] VITALS (10 sets, daily range): BP systolic 125–170; BP diastolic 69–95; PULSE 73–85; RESP 12–20; TEMP 36.4–37.4; O2SAT 95–100
--- NOTE | 2022-06-12 06:49 | P.CONAN_ITS ---
[facility] Active Problems Active Problems: All Active Problems (Updated 05/05/22 @ 18:15 by GENE Carey) Routine medical exam (Acute) UTI (urinary tract infection) (Acute) Routine history and physical examination of adult (Acute) Major depressive disorder with psychotic features (Acute) Past Medical History Medical History Anxiety Depression Glaucoma Hypercholesteremia Hypertension Laceration of abdomen Laceration of chest Laceration of wrist UTI (urinary tract infection) Family History Family history of problems with anesthesia: No Surgical History Surgical History History of laparotomy History of Problems with Anesthesia: No Social History Social History Household Members: Spouse Housing: House Are you a primary skin care specialist to a significant other at home: No Do you presently have visiting nurse or other home services: No Patient Tobacco Use Status: Former Tobacco user Quit Date: 03/2200 Tobacco use type: Cigarette and Cigar e-Cigarette/Vaping Use: Never Used service: No Sexual orientation: Straight/Heterosexual Gender identity: Male Meds Allergies Allergy/AdvReac Type Severity Reaction Status Date / Time levofloxacin [From Levaquin] Allergy Rash Verified 05/08/22 07:07 Penicillins Allergy Rash Verified 05/08/22 07:07 Active Medications: Current Medications Acetaminophen (Acetaminophen 325 Mg Tablet) 650 mg PO Q6H PRN PRN Reason: Headache/Pain Mild Scale (1-3) Last Admin: 06/07/22 18:24 Dose: 650 mg Al Hydroxide/Mg Hydroxide (Magnesium Hydrox/Alum Hydrox 30 Ml Oral.Susp) 30 ml PO Q6H PRN PRN Reason: Heartburn/Nausea Atorvastatin Calcium (Atorvastatin Calcium 20 Mg Tablet) 20 mg PO BEDTIME DIANNE Last Admin: 06/11/22 20:10 Dose: 20 mg Clozapine (Clozapine 100 Mg Tablet) 200 mg PO BEDTIME DIANNE Last Admin: 06/11/22 20:10 Dose: 200 mg Finasteride (Finasteride 5 Mg Tablet) 5 mg PO DAILY DIANNE Last Admin: 06/11/22 08:31 Dose: 5 mg [place] Carbonate ([place] Carbonate Er 300 Mg Tablet.Er) 600 mg PO BEDTIME DIANNE Last Admin: 06/11/22 20:10 Dose: 600 mg Lorazepam (Lorazepam 0.5 Mg Tablet) 0.5 mg PO TID [facility] Last Admin: 06/11/22 18:58 Dose: Not Given Lorazepam (Lorazepam 1 Mg Tablet) 1 mg PO Q4H PRN PRN Reason: Anxiety Magnesium Hydroxide (Milk Of Magnesia 30 Ml Oral.Susp) 30 ml PO DAILY PRN PRN Reason: Constipation Melatonin (Melatonin 3 Mg Tablet) 6 mg PO BEDTIME [facility] Last Admin: 06/11/22 20:10 Dose: 6 mg Mirtazapine (Mirtazapine 30 Mg Tablet) 30 mg PO BEDTIME [facility] Last Admin: 06/11/22 20:09 Dose: 30 mg Senna (Sennosides 8.6 Mg Tablet) 17.2 mg PO BEDTIME PRN PRN Reason: constipation Tamsulosin HCl (Tamsulosin Hcl 0.4 Mg Capsule) 0.4 mg PO DAILY [facility] Last Admin: 06/11/22 08:32 Dose: 0.4 mg Trazodone HCl (Trazodone Hcl 50 Mg Tablet) 50 mg PO BEDTIME MRX1 PRN PRN Reason: Insomnia Last Admin: 06/04/22 20:54 Dose: 50 mg Vortioxetine (Vortioxetine Hydrobromide 20 Mg Tablet) 20 mg PO DAILY [facility] Last Admin: 06/11/22 08:32 Dose: 20 mg Home Medications Medication Instructions Recorded Confirmed Last Taken Type clozapine 50 mg tablet 1 tab PO BEDTIME 04/11/22 04/11/22 04/10/22 History finasteride 5 mg tablet 1 tab PO DAILY 04/11/22 04/11/22 Unknown History lithium carbonate 300 mg 1 tab PO BEDTIME 04/11/22 04/11/22 04/10/22 History tablet,extended release mirtazapine 30 mg tablet 1 tab PO BEDTIME 04/11/22 04/11/22 Unknown History tamsulosin 0.4 mg capsule 1 cap PO DAILY 04/11/22 04/11/22 Unknown History venlafaxine 75 mg capsule,extended 1 cap PO QAM 04/11/22 04/11/22 Unknown History release 24 hr Exam Exam Date and Time: June 12, 2022 0649 Height,Weight and Vital Signs: Height 5 ft 6 in Weight 78 kg Last Vital Signs Temp 97.9 F 06/12/22 06:32 Pulse 75 06/12/22 06:32 Resp 16 06/12/22 06:32 BP 138/82 06/12/22 06:32 Pulse Ox 97 06/12/22 06:32 O2 Del Method Room Air 06/12/22 06:32 O2 Flow Rate 2 06/08/22 07:58 Pertinent Lab Results Pertinent Lab Results: Laboratory Tests 04/11/22 04/11/22 04/11/22 08:42 20:09 20:09 WBC RBC Hgb Hct MCV MCH MCHC RDW Plt Count MPV Immature Gran % (Auto) Neut % (Auto) Lymph % (Auto) [place] % (Auto) Eos % (Auto) Baso % (Auto) Lymph # (Auto) [place] # (Auto) Eos # (Auto) Baso # (Auto) Abs Immat Gran (auto) Absolute Neuts (auto) 3.7 Absolute Nucleated RBC Nucleated RBC % (auto) Sodium 144 Potassium 4.4 Chloride 112 H Carbon Dioxide 25 Anion Gap 11 L BUN 11 Creatinine 1.06 Estim Creat Clear Calc 63.2 Estimated GFR > 60 POC Glucose Random Glucose 165 H Fasting Glucose Estimat Average Glucose 108 Hemoglobin A1c % 5.4 Calcium 8.7 Total Bilirubin 0.5 Direct Bilirubin 0.2 AST 13 ALT 17 Alkaline Phosphatase 79 Total Protein 5.3 L Albumin 3.4 L Triglycerides 122 Cholesterol 100 LDL Cholesterol, Calc 47 HDL Cholesterol 29 Vitamin B12 505 Folate 14.5 TSH 2.24 Urine Color Urine Appearance Urine pH Ur Specific [place] Urine Protein Urine Glucose (UA) Urine Ketones Urine Blood Urine Nitrite Ur Leukocyte Esterase Urine RBC Urine WBC Ur Squamous Epith Cells Urine Bacteria Hyaline Casts Clozapine Norclozapine [place] 04/11/22 04/16/22 04/16/22 20:09 08:12 08:12 WBC RBC Hgb Hct MCV MCH MCHC RDW Plt Count MPV Immature Gran % (Auto) Neut % (Auto) Lymph % (Auto) [place] % (Auto) Eos % (Auto) Baso % (Auto) Lymph # (Auto) [place] # (Auto) Eos # (Auto) Baso # (Auto) Abs Immat Gran (auto) Absolute Neuts (auto) Absolute Nucleated RBC Nucleated RBC % (auto) Sodium 142 Potassium 4.3 Chloride 109 H Carbon Dioxide 27 Anion Gap 10 L BUN 12 Creatinine 0.99 Estim Creat Clear Calc 67.7 Estimated GFR > 60 POC Glucose Random Glucose 151 H Fasting Glucose Estimat Average Glucose Hemoglobin A1c % Calcium 9.0 Total Bilirubin Direct Bilirubin AST ALT Alkaline Phosphatase Total Protein Albumin Triglycerides Cholesterol LDL Cholesterol, Calc HDL Cholesterol Vitamin B12 Folate TSH 3.41 Urine Color Urine Appearance Urine pH Ur Specific [place] Urine Protein Urine Glucose (UA) Urine Ketones Urine Blood Urine Nitrite Ur Leukocyte Esterase Urine RBC Urine WBC Ur Squamous Epith Cells Urine Bacteria Hyaline Casts Clozapine Norclozapine [place] 0.48 L 0.77 04/18/22 04/22/22 04/22/22 06:54 09:15 14:25 WBC RBC Hgb Hct MCV MCH MCHC RDW Plt Count MPV Immature Gran % (Auto) Neut % (Auto) Lymph % (Auto) [place] % (Auto) Eos % (Auto) Baso % (Auto) Lymph # (Auto) [place] # (Auto) Eos # (Auto) Baso # (Auto) Abs Immat Gran (auto) Absolute Neuts (auto) 4.8 Absolute Nucleated RBC Nucleated RBC % (auto) Sodium 142 Potassium 3.9 Chloride 110 H Carbon Dioxide 27 Anion Gap 9 L BUN 13 Creatinine 1.07 Estim Creat Clear Calc 62.6 Estimated GFR > 60 POC Glucose Random Glucose 190 H Fasting Glucose Estimat Average Glucose Hemoglobin A1c % Calcium 8.7 Total Bilirubin 0.6 Direct Bilirubin AST 16 ALT 29 Alkaline Phosphatase 72 Total Protein 5.2 L Albumin 3.5 Triglycerides Cholesterol LDL Cholesterol, Calc HDL Cholesterol Vitamin B12 Folate TSH Urine Color Yellow Urine Appearance Clear Urine pH 6.5 Ur Specific [place] <= 1.005 Urine Protein Negative Urine Glucose (UA) Negative Urine Ketones Negative Urine Blood Trace H Urine Nitrite Negative Ur Leukocyte Esterase Large (3+) H Urine RBC 0-2 Urine WBC >50 H Ur Squamous Epith Cells 0-2 Urine Bacteria None Seen Hyaline Casts 0-2 Clozapine Norclozapine [place] 04/25/22 04/30/22 04/30/22 03:33 07:45 07:45 WBC RBC Hgb Hct MCV MCH MCHC RDW Plt Count MPV Immature Gran % (Auto) Neut % (Auto) Lymph % (Auto) [place] % (Auto) Eos % (Auto) Baso % (Auto) Lymph # (Auto) [place] # (Auto) Eos # (Auto) Baso # (Auto) Abs Immat Gran (auto) Absolute Neuts (auto) 3.7 Absolute Nucleated RBC Nucleated RBC % (auto) Sodium Potassium Chloride Carbon Dioxide Anion Gap BUN Creatinine Estim Creat Clear Calc Estimated GFR POC Glucose Random Glucose Fasting Glucose Estimat Average Glucose 105 Hemoglobin A1c % 5.3 Calcium Total Bilirubin Direct Bilirubin AST ALT Alkaline Phosphatase Total Protein Albumin Triglycerides Cholesterol LDL Cholesterol, Calc HDL Cholesterol Vitamin B12 Folate TSH Urine Color Urine Appearance Urine pH Ur Specific [place] Urine Protein Urine Glucose (UA) Urine Ketones Urine Blood Urine Nitrite Ur Leukocyte Esterase Urine RBC Urine WBC Ur Squamous Epith Cells Urine Bacteria Hyaline Casts Clozapine 338 Norclozapine 216 [place] 05/01/22 05/01/22 05/02/22 07:07 07:07 06:07 WBC RBC Hgb Hct MCV MCH MCHC RDW Plt Count MPV Immature Gran % (Auto) Neut % (Auto) Lymph % (Auto) [place] % (Auto) Eos % (Auto) Baso % (Auto) Lymph # (Auto) [place] # (Auto) Eos # (Auto) Baso # (Auto) Abs Immat Gran (auto) Absolute Neuts (auto) 2.8 Absolute Nucleated RBC Nucleated RBC % (auto) Sodium 141 Potassium 4.4 Chloride 110 H Carbon Dioxide 27 Anion Gap 8 L BUN 15 Creatinine 0.98 Estim Creat Clear Calc 69.2 Estimated GFR > 60 POC Glucose Random Glucose 105 Fasting Glucose Estimat Average Glucose Hemoglobin A1c % Calcium 8.8 Total Bilirubin Direct Bilirubin AST ALT Alkaline Phosphatase Total Protein Albumin Triglycerides Cholesterol LDL Cholesterol, Calc HDL Cholesterol Vitamin B12 Folate TSH 3.76 Urine Color Urine Appearance Urine pH Ur Specific [place] Urine Protein Urine Glucose (UA) Urine Ketones Urine Blood Urine Nitrite Ur Leukocyte Esterase Urine RBC Urine WBC Ur Squamous Epith Cells Urine Bacteria Hyaline Casts Clozapine Norclozapine [place] 0.88 05/05/22 05/05/22 05/09/22 07:54 07:54 08:11 WBC 5.8 RBC 4.61 Hgb 13.7 L Hct 43.1 MCV 93.5 MCH 29.7 MCHC 31.8 RDW 12.8 Plt Count 207 MPV 9.0 L Immature Gran % (Auto) 0.3 Neut % (Auto) 55.4 Lymph % (Auto) 32.2 [place] % (Auto) 9.7 Eos % (Auto) 1.9 Baso % (Auto) 0.5 Lymph # (Auto) 1.9 [place] # (Auto) 0.6 Eos # (Auto) 0.1 Baso # (Auto) 0.0 Abs Immat Gran (auto) 0.02 Absolute Neuts (auto) 3.2 4.1 Absolute Nucleated RBC 0.000 Nucleated RBC % (auto) 0.0 Sodium 141 Potassium 4.3 Chloride 107 Carbon Dioxide 28 Anion Gap 10 L BUN 17 H Creatinine 1.03 Estim Creat Clear Calc 65.9 Estimated GFR > 60 POC Glucose Random Glucose Fasting Glucose 130 H Estimat Average Glucose Hemoglobin A1c % Calcium 9.0 Total Bilirubin 0.9 Direct Bilirubin AST 18 ALT 37 Alkaline Phosphatase 90 Total Protein 5.6 L Albumin 3.8 Triglycerides Cholesterol LDL Cholesterol, Calc HDL Cholesterol Vitamin B12 Folate TSH Urine Color Urine Appearance Urine pH Ur Specific [place] Urine Protein Urine Glucose (UA) Urine Ketones Urine Blood Urine Nitrite Ur Leukocyte Esterase Urine RBC Urine WBC Ur Squamous Epith Cells Urine Bacteria Hyaline Casts Clozapine Norclozapine [place] 05/16/22 05/18/22 05/19/22 06:40 09:10 19:27 WBC RBC Hgb Hct MCV MCH MCHC RDW Plt Count MPV Immature Gran % (Auto) Neut % (Auto) Lymph % (Auto) [place] % (Auto) Eos % (Auto) Baso % (Auto) Lymph # (Auto) [place] # (Auto) Eos # (Auto) Baso # (Auto) Abs Immat Gran (auto) Absolute Neuts (auto) 3.6 Absolute Nucleated RBC Nucleated RBC % (auto) Sodium Potassium Chloride Carbon Dioxide Anion Gap BUN Creatinine Estim Creat Clear Calc Estimated GFR POC Glucose 133 H Random Glucose Fasting Glucose Estimat Average Glucose Hemoglobin A1c % Calcium Total Bilirubin Direct Bilirubin AST ALT Alkaline Phosphatase Total Protein Albumin Triglycerides Cholesterol LDL Cholesterol, Calc HDL Cholesterol Vitamin B12 Folate TSH Urine Color Yellow Urine Appearance Clear Urine pH 6.5 Ur Specific [place] 1.015 Urine Protein Negative Urine Glucose (UA) Negative Urine Ketones Negative Urine Blood Negative Urine Nitrite Negative Ur Leukocyte Esterase Negative Urine RBC 0-2 Urine WBC 0-5 Ur Squamous Epith Cells 0-2 Urine Bacteria None Seen Hyaline Casts 0-2 Clozapine Norclozapine [place] 05/23/22 05/28/22 05/28/22 07:27 07:54 07:54 WBC RBC Hgb Hct MCV MCH MCHC RDW Plt Count MPV Immature Gran % (Auto) Neut % (Auto) Lymph % (Auto) [place] % (Auto) Eos % (Auto) Baso % (Auto) Lymph # (Auto) [place] # (Auto) Eos # (Auto) Baso # (Auto) Abs Immat Gran (auto) Absolute Neuts (auto) 3.4 Absolute Nucleated RBC Nucleated RBC % (auto) Sodium 140 Potassium 4.3 Chloride 107 Carbon Dioxide 29 Anion Gap 8 L BUN 16 Creatinine 1.17 Estim Creat Clear Calc 57.8 Estimated GFR > 60 POC Glucose Random Glucose 134 H Fasting Glucose Estimat Average Glucose 105 Hemoglobin A1c % 5.3 Calcium 9.5 Total Bilirubin Direct Bilirubin AST ALT Alkaline Phosphatase Total Protein Albumin Triglycerides 152 Cholesterol 135 LDL Cholesterol, Calc 64 HDL Cholesterol 41 Vitamin B12 Folate TSH 4.93 H Urine Color Urine Appearance Urine pH Ur Specific [place] Urine Protein Urine Glucose (UA) Urine Ketones Urine Blood Urine Nitrite Ur Leukocyte Esterase Urine RBC Urine WBC Ur Squamous Epith Cells Urine Bacteria Hyaline Casts Clozapine Norclozapine [place] 05/28/22 05/30/22 06/06/22 07:54 06:54 06:14 WBC RBC Hgb Hct MCV MCH MCHC RDW Plt Count MPV Immature Gran % (Auto) Neut % (Auto) Lymph % (Auto) [place] % (Auto) Eos % (Auto) Baso % (Auto) Lymph # (Auto) [place] # (Auto) Eos # (Auto) Baso # (Auto) Abs Immat Gran (auto) Absolute Neuts (auto) 3.8 2.8 Absolute Nucleated RBC Nucleated RBC % (auto) Sodium Potassium Chloride Carbon Dioxide Anion Gap BUN Creatinine Estim Creat Clear Calc Estimated GFR POC Glucose Random Glucose Fasting Glucose Estimat Average Glucose Hemoglobin A1c % Calcium Total Bilirubin Direct Bilirubin AST ALT Alkaline Phosphatase Total Protein Albumin Triglycerides Cholesterol LDL Cholesterol, Calc HDL Cholesterol Vitamin B12 Folate TSH Urine Color Urine Appearance Urine pH Ur Specific [place] Urine Protein Urine Glucose (UA) Urine Ketones Urine Blood Urine Nitrite Ur Leukocyte Esterase Urine RBC Urine WBC Ur Squamous Epith Cells Urine Bacteria Hyaline Casts Clozapine Norclozapine [place] 0.87 Airway Mallampati Class: II TM Dist: >3cm Neck ROM: Full Heart: rrr Lungs: cta Assessment and Plan Assessment Anesthesia Assessment: Anesthesia Plan Discussed and Chart Reviewed Final Anesthetic Review Family History of Problems with Anesthesia: No History of Problems with Anesthesia: No NPO: Yes ASA Class: III Final Preanesthetic Review: No Changes in Pt Med Stat, Meds/Allgs Chart Reviewed and Consent Obtained/Reviewed Patient Risk: Intermediate Procedure Risk: Intermediate Anesthetic Plan Anesthetic Plan: GA Disposition: Standard PACU
[2022-06-12] MEDS: Lactated Ringers 1,000 ML 50 ML IVCONT (06:51)
--- NOTE | 2022-06-12 07:08 | MHC.SHP ---
Pre-Procedural Eval Section A Date of Service: 06/12/22 The patient is an INPATIENT: Yes Changes since office visit: Yes Patient answered all questions; No Cold of Flu in the past 2 weeks, No New Medical Problems and No Changes in Medication The History & Physical has been completed within 30 days and I have reviewed it.: Yes Section B Chief Complaint: MDD Recurrent Episode Severe PTSD Allergies: Allergies Allergy/AdvReac Type Severity Reaction Status Date / Time levofloxacin [From Levaquin] Allergy Rash Verified 05/08/22 07:07 Penicillins Allergy Rash Verified 05/08/22 07:07 Plan I have reviewed the history and physical and performed a pertinent physical examination on my patient. No changes have occurred unless specified. Time Spent With Patient Time: Total time managing care of this patient today ____ minutes.
--- NOTE | 2022-06-12 07:33 | HO.ECTPROC ---
ECT Procedure Note Diagnosis/Treatment Date of Service: 06/12/22 Diagnosis: Schizoaffective Disorder Previous ECT Date: 06/08/22 Current Treatment Number: 12 Treatment: Series Interval Clinical Notes: The patient's mood is stable, flat but no active suicidal ideation no psychosis Time: Total time managing care of this patient today ____ minutes. ECT Settings Device: THYMATRON DGx Electrode Placement: Right Unilateral Program/Pulse Width: 0.50 Energy Percent: 100 Seizure Duration By EEG (in seconds): 18 (computer didn't registered but sz activity until 41s) Medications Administration General Anesthetic: Etomidate (14) Muscle Relaxant: Succinylcholine (100) Ancillary Medications Anti-emetics: Zofran - Pre ECT Miscillaneous Medications: Propofol (30) and Flumazenil (500 mcg) Airway Management Airway Management: Bag Mask Ventilation Treatment Recommendations Notes: pt with short sz 18 s ? change to BF dec etom 12 mg
--- NOTE | 2022-06-12 09:17 | HO.PSYCHPN ---
Subjective Subjective Date of Service: 06/12/22 Reason For Visit: MDD Recurrent Episode Severe PTSD Subjective Notes: Conditional Voluntary Interim History: The nursing staff reported the patient had ECT today in the morning, later on he was awake and alert. He denies suicidal ideation or missile ideation or depression. He denies also anxiety. The social media project manager reported that her daughter contact he would [facility] and now that program has rejected him. On interview the patient denies new symptoms we will discharge him on Wednesday. Mental Status Exam Mental Status Exam Patient Appearance: Well Grooomed and Appropriate Patient Orientation: Person and Situation Level of Consciousness: Awake and Appropriate Patient Behavior: Guarded and Passive Mood Description: Calm and Constricted Affect Description: Constricted Patient Cognition Impaired: Yes Ability to Follow Directions: Good Speech Pattern: Clear and Appropriate Hallucinations: None Delusions: Not Present Thought Process: Distracted and Evasive Thought Content: positive for [place] and positive for Poverty of Content Judgement: Fair Diagnostics Vital Signs (24Hr): Vital Signs - 24 hr 06/11/22 18:00 06/12/22 05:26 06/12/22 06:32 Temperature 98 F 98.6 F 97.9 F Pulse Rate 75 82 75 Respiratory Rate 18 16 Blood Pressure 142/86 H 148/69 H 138/82 Pulse Oximetry 94 97 Oxygen Delivery Method Room Air Room Air Oxygen Flow Rate 06/12/22 07:52 06/12/22 07:57 06/12/22 08:02 Temperature 99.3 F Pulse Rate 78 73 74 Respiratory Rate 18 12 20 Blood Pressure 151/74 H 145/84 H 141/82 H Pulse Oximetry 100 99 97 Oxygen Delivery Method Nasal Cannula Nasal Cannula Room Air Oxygen Flow Rate 3 2 06/12/22 08:07 06/12/22 08:22 06/12/22 08:40 Temperature 98.4 F 97.5 F Pulse Rate 73 74 76 Respiratory Rate 15 16 16 Blood Pressure 156/87 H 170/85 H 149/95 H Pulse Oximetry 99 96 97 Oxygen Delivery Method Room Air Room Air Room Air Oxygen Flow Rate 06/12/22 08:55 Temperature 97.5 F Pulse Rate 76 Respiratory Rate 16 Blood Pressure 149/95 H Pulse Oximetry 97 Oxygen Delivery Method Oxygen Flow Rate BMI result Body Mass Index 27.7 Labs 05/05/22 07:54 05/28/22 07:54 Imaging Radiology Impressions: ITS Impressions Brain MRI 04/24/22 09:39 IMPRESSION: - No acute intracranial findings. No acute infarcts. - There is global cerebral volume loss and there is mild chronic microangiopathy. Medications Medications Current Medications Acetaminophen (Acetaminophen 325 Mg Tablet) 650 mg PO Q6H PRN PRN Reason: Headache/Pain Mild Scale (1-3) Last Admin: 06/07/22 18:24 Dose: 650 mg Al Hydroxide/Mg Hydroxide (Magnesium Hydrox/Alum Hydrox 30 Ml Oral.Susp) 30 ml PO Q6H PRN PRN Reason: Heartburn/Nausea Atorvastatin Calcium (Atorvastatin Calcium 20 Mg Tablet) 20 mg PO BEDTIME DIANNE Last Admin: 06/11/22 20:10 Dose: 20 mg Clozapine (Clozapine 100 Mg Tablet) 200 mg PO BEDTIME DIANNE Last Admin: 06/11/22 20:10 Dose: 200 mg Finasteride (Finasteride 5 Mg Tablet) 5 mg PO DAILY DIANNE Last Admin: 06/11/22 08:31 Dose: 5 mg Section Carbonate (Section Carbonate Er 300 Mg Tablet.Er) 600 mg PO BEDTIME DIANNE Last Admin: 06/11/22 20:10 Dose: 600 mg Lorazepam (Lorazepam 0.5 Mg Tablet) 0.5 mg PO TID DIANNE Last Admin: 06/11/22 18:58 Dose: Not Given Lorazepam (Lorazepam 1 Mg Tablet) 1 mg PO Q4H PRN PRN Reason: Anxiety Magnesium Hydroxide (Milk Of Magnesia 30 Ml Oral.Susp) 30 ml PO DAILY PRN PRN Reason: Constipation Melatonin (Melatonin 3 Mg Tablet) 6 mg PO BEDTIME DIANNE Last Admin: 06/11/22 20:10 Dose: 6 mg Mirtazapine (Mirtazapine 30 Mg Tablet) 30 mg PO BEDTIME DIANNE Last Admin: 06/11/22 20:09 Dose: 30 mg Senna (Sennosides 8.6 Mg Tablet) 17.2 mg PO BEDTIME PRN PRN Reason: constipation Tamsulosin HCl (Tamsulosin Hcl 0.4 Mg Capsule) 0.4 mg PO DAILY DIANNE Last Admin: 06/11/22 08:32 Dose: 0.4 mg Trazodone HCl (Trazodone Hcl 50 Mg Tablet) 50 mg PO BEDTIME MRX1 PRN PRN Reason: Insomnia Last Admin: 06/04/22 20:54 Dose: 50 mg Vortioxetine (Vortioxetine Hydrobromide 20 Mg Tablet) 20 mg PO DAILY DIANNE Last Admin: 06/11/22 08:32 Dose: 20 mg Allergies Allergies Allergy/AdvReac Type Severity Reaction Status Date / Time levofloxacin [From Levaquin] Allergy Rash Verified 05/08/22 07:07 Penicillins Allergy Rash Verified 05/08/22 07:07 Assessment & Plan Assessment & Plan (1) Major depressive disorder with psychotic features: Status: Acute Code(s): F32.3 - Major depressive disorder, single episode, severe with psychotic features Plan 72-year-old male with history of anxiety/depression, glaucoma, hypercholesterolemia, hypertension recently treated for UTI admitted to [facility] psych with consult placed to Medicine for ECT evaluation. hospital course: 05/23 patient reports good and that depression is gone; feeling more clear minded; continue current regimen 05/24 continue current tx plan -npo after midnight -ECT on 05/25 (confirmed by Dr. Womack) 05/30/2022 Continue plan of care discharge planning 05/31/2022 Continue Trintellix monitor response to ECT patient somewhat difficult to read states he feels much improved denies command hallucinations Plan 1. Continue with same treatment. 2. Continue ECT with regular right unilateral. Now changed to twice a week 3. Reassessment with results. 4. Increase Trintellix up to 20 mg p.o. daily starting May 21. 5. Discharge Wednesday. Reason for continued inpatient stay Substantial Risk for: inability to function, rapid decompensation and med/psych decompensation Time Spent With Patient Time: Total time managing care of this patient today __20__ minutes.
[2022-06-12] MEDS: Finasteride 5 MG TABLET PO (10:01)
[2022-06-12] MEDS: Vortioxetine Hydrobromide 20 MG TABLET PO (10:02)
[2022-06-12] MEDS: Tamsulosin HCL 0.4 MG CAPSULE PO (10:02)
[2022-06-12] MEDS: LORazepam 0.5 MG TABLET PO ×2 (10:03→16:18)
[2022-06-12] MEDS: Lithium Carbonate ER 300 MG TABLET.ER 600 MG PO (20:59)
[2022-06-12] MEDS: Atorvastatin Calcium 20 MG TABLET PO (20:59)
[2022-06-12] MEDS: Mirtazapine 30 MG TABLET PO (20:59)
[2022-06-12] MEDS: cloZAPine 100 MG TABLET 200 MG PO (21:00)
[2022-06-12] MEDS: Melatonin 3 MG TABLET 6 MG PO (21:00)
[2022-06-13 03:00] VITALS: TEMP 37
[2022-06-13 07:11] LABS: Neut%MD 50.6 %; Neutrophils Absolute Auto 2.6 x10*3/uL (2.0-8.3); WBCANC 5.2 X10*3/uL
[2022-06-13 07:50] VITALS: BP 150/81; PULSE 88; RESP 18; TEMP 36.6; O2SAT 96
[2022-06-13] MEDS: Tamsulosin HCL 0.4 MG CAPSULE PO (08:43)
[2022-06-13] MEDS: Finasteride 5 MG TABLET PO (08:43)
[2022-06-13] MEDS: Vortioxetine Hydrobromide 20 MG TABLET PO (08:43)
[2022-06-13 18:00] VITALS: BP 141/82; PULSE 82; RESP 18; TEMP 36.8; O2SAT 96
--- NOTE | 2022-06-13 19:26 | HO.PSYCHPN ---
Subjective Subjective Date of Service: 06/13/22 Reason For Visit: MDD Recurrent Episode Severe PTSD Interim History: Patient seen and reviewed with RN. He continues to show improvement with ECT. He denies SI or HI. No more thoughts of disemboweling himself. He feels ready for possible DC early next week They tell me as soon as Wednesday. Medication Compliance: Yes Side effects from medications: No Review of Systems Review of Systems General: No fevers, malaise, unintentional weight loss HEENT: No blurred vision, diplopia. No sore throat, nasal congestion, rhinorrhea, sinus pain, ear pain Cardiovascular: No chest pain, palpitations, or leg edema Respiratory: No shortness of breath, wheezing, cough GI: No abdominal pain, nausea, vomiting, diarrhea, constipation, melena, hematochezia : No dysuria, hematuria, increased urinary frequency, decreased urinary output MSK: No myalgia, back pain Neuro: No headaches, weakness, paresthesias Skin: No rashes or lesions Yes all other systems are reviewed and are negative Mental Status Exam Mental Status Exam Narrative: In today's visit he is alert, pleasant and interactive. Moderate eye contact. Soft-spoken speech. Affect is appropriate and brighter. Mood is much better . No signs of psychosis. Pt denies SI/HI. No dangerous behaviors.Insight/judgment fair x 2. Patient Appearance: Well Grooomed and Appropriate Patient Orientation: Person and Situation Level of Consciousness: Awake and Appropriate Patient Behavior: Guarded and Passive Behavior Comments: Tense looking in appearance pacing anxious Mood Description: Calm and Constricted Affect Description: Constricted Patient Cognition Impaired: Yes Ability to Follow Directions: Good Speech Pattern: Clear and Appropriate Memory Description: Episodic Impaired Diagnostics Vital Signs (24Hr): Vital Signs - 24 hr 06/13/22 03:00 06/13/22 07:50 Temperature 98.6 F 97.9 F Pulse Rate 88 Respiratory Rate 18 Blood Pressure 150/81 H Pulse Oximetry 96 Oxygen Delivery Method Room Air BMI result Body Mass Index 27.7 Labs 05/05/22 07:54 05/28/22 07:54 Labs: Laboratory Results - last 48 hr 06/13/22 06:50 Absolute Neuts (auto) 2.6 Imaging Radiology Impressions: ITS Impressions Brain MRI 04/24/22 09:39 IMPRESSION: - No acute intracranial findings. No acute infarcts. - There is global cerebral volume loss and there is mild chronic microangiopathy. Medications Medications Current Medications Acetaminophen (Acetaminophen 325 Mg Tablet) 650 mg PO Q6H PRN PRN Reason: Headache/Pain Mild Scale (1-3) Last Admin: 06/07/22 18:24 Dose: 650 mg Al Hydroxide/Mg Hydroxide (Magnesium Hydrox/Alum Hydrox 30 Ml Oral.Susp) 30 ml PO Q6H PRN PRN Reason: Heartburn/Nausea Atorvastatin Calcium (Atorvastatin Calcium 20 Mg Tablet) 20 mg PO BEDTIME DIANNE Last Admin: 06/12/22 20:59 Dose: 20 mg Clozapine (Clozapine 100 Mg Tablet) 200 mg PO BEDTIME DIANNE Last Admin: 06/12/22 21:00 Dose: 200 mg Finasteride (Finasteride 5 Mg Tablet) 5 mg PO DAILY [facility] Last Admin: 06/13/22 08:43 Dose: 5 mg Gervais Carbonate (Gervais Carbonate Er 300 Mg Tablet.Er) 600 mg PO BEDTIME DIANNE Last Admin: 06/12/22 20:59 Dose: 600 mg Magnesium Hydroxide (Milk Of Magnesia 30 Ml Oral.Susp) 30 ml PO DAILY PRN PRN Reason: Constipation Melatonin (Melatonin 3 Mg Tablet) 6 mg PO BEDTIME [facility] Last Admin: 06/12/22 21:00 Dose: 6 mg Mirtazapine (Mirtazapine 30 Mg Tablet) 30 mg PO BEDTIME DIANNE Last Admin: 06/12/22 20:59 Dose: 30 mg Senna (Sennosides 8.6 Mg Tablet) 17.2 mg PO BEDTIME PRN PRN Reason: constipation Tamsulosin HCl (Tamsulosin Hcl 0.4 Mg Capsule) 0.4 mg PO DAILY [facility] Last Admin: 06/13/22 08:43 Dose: 0.4 mg Trazodone HCl (Trazodone Hcl 50 Mg Tablet) 50 mg PO BEDTIME MRX1 PRN PRN Reason: Insomnia Last Admin: 06/04/22 20:54 Dose: 50 mg Vortioxetine (Vortioxetine Hydrobromide 20 Mg Tablet) 20 mg PO DAILY [facility] Last Admin: 06/13/22 08:43 Dose: 20 mg Allergies Allergies Allergy/AdvReac Type Severity Reaction Status Date / Time levofloxacin [From Levaquin] Allergy Rash Verified 05/08/22 07:07 Penicillins Allergy Rash Verified 05/08/22 07:07 Assessment & Plan Assessment & Plan (1) Major depressive disorder with psychotic features: Status: Acute Code(s): F32.3 - Major depressive disorder, single episode, severe with psychotic features Plan 72-year-old male with history of anxiety/depression, glaucoma, hypercholesterolemia, hypertension recently treated for UTI admitted to [facility] psych with consult placed to Medicine for ECT evaluation. hospital course: 05/23 patient reports good and that depression is gone; feeling more clear minded; continue current regimen 05/24 continue current tx plan -npo after midnight -ECT on 05/25 (confirmed by Dr. Womack) 05/30/2022 Continue plan of care discharge planning 05/31/2022 Continue Trintellix monitor response to ECT patient somewhat difficult to read states he feels much improved denies command hallucinations Plan 1. Continue with same treatment. 2. Continue ECT with regular right unilateral. Now changed to twice a week 3. Reassessment with results. 4. Increase Trintellix up to 20 mg p.o. daily starting May 21. 5. Discharge Wednesday. 06/13: Continue treatment plan. Reason for continued inpatient stay Substantial Risk for: harm to self Time Spent With Patient Time: Total time managing care of this patient today ____ minutes.
[2022-06-13] MEDS: Atorvastatin Calcium 20 MG TABLET PO (20:37)
[2022-06-13] MEDS: cloZAPine 100 MG TABLET 200 MG PO (20:37)
[2022-06-13] MEDS: Lithium Carbonate ER 300 MG TABLET.ER 600 MG PO (20:37)
[2022-06-13] MEDS: Melatonin 3 MG TABLET 6 MG PO (20:38)
[2022-06-13] MEDS: Mirtazapine 30 MG TABLET PO (20:38)
[2022-06-14] MEDS: Finasteride 5 MG TABLET PO (08:03)
[2022-06-14] MEDS: Vortioxetine Hydrobromide 20 MG TABLET PO (08:04)
[2022-06-14] MEDS: Tamsulosin HCL 0.4 MG CAPSULE PO (08:04)
[2022-06-14 08:06] VITALS: BP 140/73; PULSE 89; RESP 17; TEMP 36.7; O2SAT 96
--- NOTE | 2022-06-14 09:31 | HO.PSYCHPN ---
Subjective Subjective Date of Service: 06/14/22 Reason For Visit: MDD Recurrent Episode Severe PTSD Interim History: Patient seen and reviewed with RN. He continues to show improvement with ECT. He denies SI or HI. No more thoughts of disemboweling himself. He feels ready for possible DC early next week They tell me as soon as Wednesday. No ECT scheduled for tomorrow. Review of Systems Review of Systems General: No fevers, malaise, unintentional weight loss HEENT: No blurred vision, diplopia. No sore throat, nasal congestion, rhinorrhea, sinus pain, ear pain Cardiovascular: No chest pain, palpitations, or leg edema Respiratory: No shortness of breath, wheezing, cough GI: No abdominal pain, nausea, vomiting, diarrhea, constipation, melena, hematochezia : No dysuria, hematuria, increased urinary frequency, decreased urinary output MSK: No myalgia, back pain Neuro: No headaches, weakness, paresthesias Skin: No rashes or lesions Yes all other systems are reviewed and are negative Mental Status Exam Mental Status Exam Narrative: In today's visit he is alert, pleasant and interactive. Moderate eye contact. Soft-spoken speech. Affect is appropriate and brighter. Mood is much better . No signs of psychosis. Pt denies SI/HI. No dangerous behaviors.Insight/judgment fair x 2. Patient Appearance: Well Grooomed and Appropriate Patient Orientation: Person and Situation Level of Consciousness: Awake and Appropriate Patient Behavior: Guarded and Passive Behavior Comments: Tense looking in appearance pacing anxious Mood Description: Calm and Constricted Affect Description: Constricted Patient Cognition Impaired: Yes Ability to Follow Directions: Good Speech Pattern: Clear and Appropriate Memory Description: Episodic Impaired Diagnostics Vital Signs (24Hr): Vital Signs - 24 hr 06/13/22 18:00 06/14/22 08:06 Temperature 98.3 F 98.1 F Pulse Rate 82 89 Respiratory Rate 18 17 Blood Pressure 141/82 H 140/73 H Pulse Oximetry 96 96 Oxygen Delivery Method Room Air Room Air BMI result Body Mass Index 27.7 Labs 05/05/22 07:54 05/28/22 07:54 Labs: Laboratory Results - last 48 hr 06/13/22 06:50 Absolute Neuts (auto) 2.6 Imaging Radiology Impressions: ITS Impressions Brain MRI 04/24/22 09:39 IMPRESSION: - No acute intracranial findings. No acute infarcts. - There is global cerebral volume loss and there is mild chronic microangiopathy. Medications Medications Current Medications Acetaminophen (Acetaminophen 325 Mg Tablet) 650 mg PO Q6H PRN PRN Reason: Headache/Pain Mild Scale (1-3) Last Admin: 06/07/22 18:24 Dose: 650 mg Al Hydroxide/Mg Hydroxide (Magnesium Hydrox/Alum Hydrox 30 Ml Oral.Susp) 30 ml PO Q6H PRN PRN Reason: Heartburn/Nausea Atorvastatin Calcium (Atorvastatin Calcium 20 Mg Tablet) 20 mg PO BEDTIME DIANNE Last Admin: 06/13/22 20:37 Dose: 20 mg Clozapine (Clozapine 100 Mg Tablet) 200 mg PO BEDTIME DIANNE Last Admin: 06/13/22 20:37 Dose: 200 mg Finasteride (Finasteride 5 Mg Tablet) 5 mg PO DAILY [facility] Last Admin: 06/14/22 08:03 Dose: 5 mg Halliday Carbonate (Halliday Carbonate Er 300 Mg Tablet.Er) 600 mg PO BEDTIME DIANNE Last Admin: 06/13/22 20:37 Dose: 600 mg Magnesium Hydroxide (Milk Of Magnesia 30 Ml Oral.Susp) 30 ml PO DAILY PRN PRN Reason: Constipation Melatonin (Melatonin 3 Mg Tablet) 6 mg PO BEDTIME DIANNE Last Admin: 06/13/22 20:38 Dose: 6 mg Mirtazapine (Mirtazapine 30 Mg Tablet) 30 mg PO BEDTIME DIANNE Last Admin: 06/13/22 20:38 Dose: 30 mg Senna (Sennosides 8.6 Mg Tablet) 17.2 mg PO BEDTIME PRN PRN Reason: constipation Tamsulosin HCl (Tamsulosin Hcl 0.4 Mg Capsule) 0.4 mg PO DAILY [facility] Last Admin: 06/14/22 08:04 Dose: 0.4 mg Trazodone HCl (Trazodone Hcl 50 Mg Tablet) 50 mg PO BEDTIME MRX1 PRN PRN Reason: Insomnia Last Admin: 06/04/22 20:54 Dose: 50 mg Vortioxetine (Vortioxetine Hydrobromide 20 Mg Tablet) 20 mg PO DAILY [facility] Last Admin: 06/14/22 08:04 Dose: 20 mg Allergies Allergies Allergy/AdvReac Type Severity Reaction Status Date / Time levofloxacin [From Levaquin] Allergy Rash Verified 05/08/22 07:07 Penicillins Allergy Rash Verified 05/08/22 07:07 Assessment & Plan Assessment & Plan (1) Major depressive disorder with psychotic features: Status: Acute Code(s): F32.3 - Major depressive disorder, single episode, severe with psychotic features Plan 72-year-old male with history of anxiety/depression, glaucoma, hypercholesterolemia, hypertension recently treated for UTI admitted to [facility] psych with consult placed to Medicine for ECT evaluation. hospital course: 05/23 patient reports good and that depression is gone; feeling more clear minded; continue current regimen 05/24 continue current tx plan -npo after midnight -ECT on 05/25 (confirmed by Dr. Womack) 05/30/2022 Continue plan of care discharge planning 05/31/2022 Continue Trintellix monitor response to ECT patient somewhat difficult to read states he feels much improved denies command hallucinations Plan 1. Continue with same treatment. 2. Continue ECT with regular right unilateral. Now changed to twice a week 3. Reassessment with results. 4. Increase Trintellix up to 20 mg p.o. daily starting May 21. 5. Discharge Wednesday. 06/13: Continue treatment plan. 06/14: continue treatment plan. Reason for continued inpatient stay Substantial Risk for: harm to self and rapid decompensation Time Spent With Patient Time: Total time managing care of this patient today ____ minutes.
[2022-06-14 18:00] VITALS: BP 135/82; PULSE 84; RESP 18; TEMP 36.6
[2022-06-14] MEDS: Mirtazapine 30 MG TABLET PO (21:12)
[2022-06-14] MEDS: cloZAPine 100 MG TABLET 200 MG PO (21:12)
[2022-06-14] MEDS: Atorvastatin Calcium 20 MG TABLET PO (21:12)
[2022-06-14] MEDS: Melatonin 3 MG TABLET 6 MG PO (21:12)
[2022-06-14] MEDS: Lithium Carbonate ER 300 MG TABLET.ER 600 MG PO (21:13)
[2022-06-15] VITALS (9 sets, daily range): BP systolic 116–162; BP diastolic 61–98; PULSE 61–86; RESP 13–19; TEMP 35.8–37.1; O2SAT 96–98
--- NOTE | 2022-06-15 07:25 | MHC.SHP ---
Pre-Procedural Eval Section A Date of Service: 06/15/22 The patient is an INPATIENT: Yes Changes since office visit: No Cold of Flu in the past 2 weeks, No New Medical Problems, No Changes in Medication and No Patient answered all questions The History & Physical has been completed within 30 days and I have reviewed it.: Yes Section B Chief Complaint: MDD Recurrent Episode Severe PTSD Allergies: Allergies Allergy/AdvReac Type Severity Reaction Status Date / Time levofloxacin [From Levaquin] Allergy Rash Verified 05/08/22 07:07 Penicillins Allergy Rash Verified 05/08/22 07:07 Plan I have reviewed the history and physical and performed a pertinent physical examination on my patient. No changes have occurred unless specified. Time Spent With Patient Time: Total time managing care of this patient today ____ minutes.
--- NOTE | 2022-06-15 07:26 | HO.ECTPROC ---
ECT Procedure Note Diagnosis/Treatment Date of Service: 06/15/22 Diagnosis: Schizoaffective Disorder Previous ECT Date: 06/12/22 Treatment: Maintenance Interval Clinical Notes: Stable, ready for discharge today after procedure. No evidence of dysphoria or psychosis. Time: Total time managing care of this patient today __30__ minutes. ECT Settings Device: THYMATRON DGx Electrode Placement: Right Unilateral Program/Pulse Width: 0.50 Energy Percent: 100 Seizure Duration By EEG (in seconds): 37 By Motor Observation (in seconds): 17 Medications Administration General Anesthetic: Etomidate (14) Muscle Relaxant: Succinylcholine (100) Ancillary Medications Analgesics: Torodol - Pre ECT Anti-emetics: Zofran - Pre ECT Airway Management Airway Management: Bag Mask Ventilation Treatment Recommendations No Changes Recommended: No change Notes: The patient will requiere 3 more ECTs on Mondays, once a week as an outpatient. Pt Tolerated Procedure w/o Issue: Yes
--- NOTE | 2022-06-15 07:55 | HO.ANESPROP2 ---
[facility] Active Problems Active Problems: All Active Problems (Updated 05/05/22 @ 18:15 by GENE Carey) Routine medical exam (Acute) UTI (urinary tract infection) (Acute) Routine history and physical examination of adult (Acute) Major depressive disorder with psychotic features (Acute) Past Medical History Medical History Anxiety Depression Glaucoma Hypercholesteremia Hypertension Laceration of abdomen Laceration of chest Laceration of wrist UTI (urinary tract infection) Family History Family history of problems with anesthesia: No Surgical History Surgical History History of laparotomy History of Problems with Anesthesia: No Social History Social History Household Members: Spouse Housing: House Are you a primary wound care physician to a significant other at home: No Do you presently have visiting nurse or other home services: No Patient Tobacco Use Status: Former Tobacco user Quit Date: 03/2200 Tobacco use type: Cigarette and Cigar e-Cigarette/Vaping Use: Never Used service: No Sexual orientation: Straight/Heterosexual Gender identity: Male Meds Allergies Allergy/AdvReac Type Severity Reaction Status Date / Time levofloxacin [From Levaquin] Allergy Rash Verified 05/08/22 07:07 Penicillins Allergy Rash Verified 05/08/22 07:07 Active Medications: Current Medications Acetaminophen (Acetaminophen 325 Mg Tablet) 650 mg PO Q6H PRN PRN Reason: Headache/Pain Mild Scale (1-3) Last Admin: 06/07/22 18:24 Dose: 650 mg Al Hydroxide/Mg Hydroxide (Magnesium Hydrox/Alum Hydrox 30 Ml Oral.Susp) 30 ml PO Q6H PRN PRN Reason: Heartburn/Nausea Atorvastatin Calcium (Atorvastatin Calcium 20 Mg Tablet) 20 mg PO BEDTIME DIANNE Last Admin: 06/14/22 21:12 Dose: 20 mg Clozapine (Clozapine 100 Mg Tablet) 200 mg PO BEDTIME DIANNE Last Admin: 06/14/22 21:12 Dose: 200 mg Finasteride (Finasteride 5 Mg Tablet) 5 mg PO DAILY DIANNE Last Admin: 06/14/22 08:03 Dose: 5 mg Combine Carbonate (Combine Carbonate Er 300 Mg Tablet.Er) 600 mg PO BEDTIME DIANNE Last Admin: 06/14/22 21:13 Dose: 600 mg Magnesium Hydroxide (Milk Of Magnesia 30 Ml Oral.Susp) 30 ml PO DAILY PRN PRN Reason: Constipation Melatonin (Melatonin 3 Mg Tablet) 6 mg PO BEDTIME [facility] Last Admin: 06/14/22 21:12 Dose: 6 mg Mirtazapine (Mirtazapine 30 Mg Tablet) 30 mg PO BEDTIME [facility] Last Admin: 06/14/22 21:12 Dose: 30 mg Senna (Sennosides 8.6 Mg Tablet) 17.2 mg PO BEDTIME PRN PRN Reason: constipation Tamsulosin HCl (Tamsulosin Hcl 0.4 Mg Capsule) 0.4 mg PO DAILY [facility] Last Admin: 06/14/22 08:04 Dose: 0.4 mg Trazodone HCl (Trazodone Hcl 50 Mg Tablet) 50 mg PO BEDTIME MRX1 PRN PRN Reason: Insomnia Last Admin: 06/04/22 20:54 Dose: 50 mg Vortioxetine (Vortioxetine Hydrobromide 20 Mg Tablet) 20 mg PO DAILY [facility] Last Admin: 06/14/22 08:04 Dose: 20 mg Home Medications Medication Instructions Recorded Confirmed Last Taken Type clozapine 50 mg tablet 1 tab PO BEDTIME 04/11/22 04/11/22 04/10/22 History finasteride 5 mg tablet 1 tab PO DAILY 04/11/22 04/11/22 Unknown History lithium carbonate 300 mg 1 tab PO BEDTIME 04/11/22 04/11/22 04/10/22 History tablet,extended release mirtazapine 30 mg tablet 1 tab PO BEDTIME 04/11/22 04/11/22 Unknown History tamsulosin 0.4 mg capsule 1 cap PO DAILY 04/11/22 04/11/22 Unknown History venlafaxine 75 mg capsule,extended 1 cap PO QAM 04/11/22 04/11/22 Unknown History release 24 hr Exam Exam Date and Time: June 15, 2022 872 Height,Weight and Vital Signs: Height 5 ft 6 in Weight 78 kg Last Vital Signs Temp 98.4 F 06/15/22 07:47 Pulse 76 06/15/22 07:52 Resp 17 06/15/22 07:52 BP 150/88 H 06/15/22 07:52 Pulse Ox 97 06/15/22 07:52 O2 Del Method Nasal Cannula 06/15/22 07:52 O2 Flow Rate 2 06/15/22 07:52 Pertinent Lab Results Pertinent Lab Results: Laboratory Tests 04/11/22 04/11/22 04/11/22 08:42 20:09 20:09 WBC RBC Hgb Hct MCV MCH MCHC RDW Plt Count MPV Immature Gran % (Auto) Neut % (Auto) Lymph % (Auto) [place] % (Auto) Eos % (Auto) Baso % (Auto) Lymph # (Auto) [place] # (Auto) Eos # (Auto) Baso # (Auto) Abs Immat Gran (auto) Absolute Neuts (auto) 3.7 Absolute Nucleated RBC Nucleated RBC % (auto) Sodium 144 Potassium 4.4 Chloride 112 H Carbon Dioxide 25 Anion Gap 11 L BUN 11 Creatinine 1.06 Estim Creat Clear Calc 63.2 Estimated GFR > 60 POC Glucose Random Glucose 165 H Fasting Glucose Estimat Average Glucose 108 Hemoglobin A1c % 5.4 Calcium 8.7 Total Bilirubin 0.5 Direct Bilirubin 0.2 AST 13 ALT 17 Alkaline Phosphatase 79 Total Protein 5.3 L Albumin 3.4 L Triglycerides 122 Cholesterol 100 LDL Cholesterol, Calc 47 HDL Cholesterol 29 Vitamin B12 505 Folate 14.5 TSH 2.24 Urine Color Urine Appearance Urine pH Ur Specific [place] Urine Protein Urine Glucose (UA) Urine Ketones Urine Blood Urine Nitrite Ur Leukocyte Esterase Urine RBC Urine WBC Ur Squamous Epith Cells Urine Bacteria Hyaline Casts Clozapine Norclozapine Combine 04/11/22 04/16/22 04/16/22 20:09 08:12 08:12 WBC RBC Hgb Hct MCV MCH MCHC RDW Plt Count MPV Immature Gran % (Auto) Neut % (Auto) Lymph % (Auto) [place] % (Auto) Eos % (Auto) Baso % (Auto) Lymph # (Auto) [place] # (Auto) Eos # (Auto) Baso # (Auto) Abs Immat Gran (auto) Absolute Neuts (auto) Absolute Nucleated RBC Nucleated RBC % (auto) Sodium 142 Potassium 4.3 Chloride 109 H Carbon Dioxide 27 Anion Gap 10 L BUN 12 Creatinine 0.99 Estim Creat Clear Calc 67.7 Estimated GFR > 60 POC Glucose Random Glucose 151 H Fasting Glucose Estimat Average Glucose Hemoglobin A1c % Calcium 9.0 Total Bilirubin Direct Bilirubin AST ALT Alkaline Phosphatase Total Protein Albumin Triglycerides Cholesterol LDL Cholesterol, Calc HDL Cholesterol Vitamin B12 Folate TSH 3.41 Urine Color Urine Appearance Urine pH Ur Specific [place] Urine Protein Urine Glucose (UA) Urine Ketones Urine Blood Urine Nitrite Ur Leukocyte Esterase Urine RBC Urine WBC Ur Squamous Epith Cells Urine Bacteria Hyaline Casts Clozapine Norclozapine Combine 0.48 L 0.77 04/18/22 04/22/22 04/22/22 06:54 09:15 14:25 WBC RBC Hgb Hct MCV MCH MCHC RDW Plt Count MPV Immature Gran % (Auto) Neut % (Auto) Lymph % (Auto) [place] % (Auto) Eos % (Auto) Baso % (Auto) Lymph # (Auto) [place] # (Auto) Eos # (Auto) Baso # (Auto) Abs Immat Gran (auto) Absolute Neuts (auto) 4.8 Absolute Nucleated RBC Nucleated RBC % (auto) Sodium 142 Potassium 3.9 Chloride 110 H Carbon Dioxide 27 Anion Gap 9 L BUN 13 Creatinine 1.07 Estim Creat Clear Calc 62.6 Estimated GFR > 60 POC Glucose Random Glucose 190 H Fasting Glucose Estimat Average Glucose Hemoglobin A1c % Calcium 8.7 Total Bilirubin 0.6 Direct Bilirubin AST 16 ALT 29 Alkaline Phosphatase 72 Total Protein 5.2 L Albumin 3.5 Triglycerides Cholesterol LDL Cholesterol, Calc HDL Cholesterol Vitamin B12 Folate TSH Urine Color Yellow Urine Appearance Clear Urine pH 6.5 Ur Specific [place] <= 1.005 Urine Protein Negative Urine Glucose (UA) Negative Urine Ketones Negative Urine Blood Trace H Urine Nitrite Negative Ur Leukocyte Esterase Large (3+) H Urine RBC 0-2 Urine WBC >50 H Ur Squamous Epith Cells 0-2 Urine Bacteria None Seen Hyaline Casts 0-2 Clozapine Norclozapine Combine 04/25/22 04/30/22 04/30/22 03:33 07:45 07:45 WBC RBC Hgb Hct MCV MCH MCHC RDW Plt Count MPV Immature Gran % (Auto) Neut % (Auto) Lymph % (Auto) [place] % (Auto) Eos % (Auto) Baso % (Auto) Lymph # (Auto) [place] # (Auto) Eos # (Auto) Baso # (Auto) Abs Immat Gran (auto) Absolute Neuts (auto) 3.7 Absolute Nucleated RBC Nucleated RBC % (auto) Sodium Potassium Chloride Carbon Dioxide Anion Gap BUN Creatinine Estim Creat Clear Calc Estimated GFR POC Glucose Random Glucose Fasting Glucose Estimat Average Glucose 105 Hemoglobin A1c % 5.3 Calcium Total Bilirubin Direct Bilirubin AST ALT Alkaline Phosphatase Total Protein Albumin Triglycerides Cholesterol LDL Cholesterol, Calc HDL Cholesterol Vitamin B12 Folate TSH Urine Color Urine Appearance Urine pH Ur Specific [place] Urine Protein Urine Glucose (UA) Urine Ketones Urine Blood Urine Nitrite Ur Leukocyte Esterase Urine RBC Urine WBC Ur Squamous Epith Cells Urine Bacteria Hyaline Casts Clozapine 338 Norclozapine 216 Combine 05/01/22 05/01/22 05/02/22 07:07 07:07 06:07 WBC RBC Hgb Hct MCV MCH MCHC RDW Plt Count MPV Immature Gran % (Auto) Neut % (Auto) Lymph % (Auto) [place] % (Auto) Eos % (Auto) Baso % (Auto) Lymph # (Auto) [place] # (Auto) Eos # (Auto) Baso # (Auto) Abs Immat Gran (auto) Absolute Neuts (auto) 2.8 Absolute Nucleated RBC Nucleated RBC % (auto) Sodium 141 Potassium 4.4 Chloride 110 H Carbon Dioxide 27 Anion Gap 8 L BUN 15 Creatinine 0.98 Estim Creat Clear Calc 69.2 Estimated GFR > 60 POC Glucose Random Glucose 105 Fasting Glucose Estimat Average Glucose Hemoglobin A1c % Calcium 8.8 Total Bilirubin Direct Bilirubin AST ALT Alkaline Phosphatase Total Protein Albumin Triglycerides Cholesterol LDL Cholesterol, Calc HDL Cholesterol Vitamin B12 Folate TSH 3.76 Urine Color Urine Appearance Urine pH Ur Specific [place] Urine Protein Urine Glucose (UA) Urine Ketones Urine Blood Urine Nitrite Ur Leukocyte Esterase Urine RBC Urine WBC Ur Squamous Epith Cells Urine Bacteria Hyaline Casts Clozapine Norclozapine Combine 0.88 05/05/22 05/05/22 05/09/22 07:54 07:54 08:11 WBC 5.8 RBC 4.61 Hgb 13.7 L Hct 43.1 MCV 93.5 MCH 29.7 MCHC 31.8 RDW 12.8 Plt Count 207 MPV 9.0 L Immature Gran % (Auto) 0.3 Neut % (Auto) 55.4 Lymph % (Auto) 32.2 [place] % (Auto) 9.7 Eos % (Auto) 1.9 Baso % (Auto) 0.5 Lymph # (Auto) 1.9 [place] # (Auto) 0.6 Eos # (Auto) 0.1 Baso # (Auto) 0.0 Abs Immat Gran (auto) 0.02 Absolute Neuts (auto) 3.2 4.1 Absolute Nucleated RBC 0.000 Nucleated RBC % (auto) 0.0 Sodium 141 Potassium 4.3 Chloride 107 Carbon Dioxide 28 Anion Gap 10 L BUN 17 H Creatinine 1.03 Estim Creat Clear Calc 65.9 Estimated GFR > 60 POC Glucose Random Glucose Fasting Glucose 130 H Estimat Average Glucose Hemoglobin A1c % Calcium 9.0 Total Bilirubin 0.9 Direct Bilirubin AST 18 ALT 37 Alkaline Phosphatase 90 Total Protein 5.6 L Albumin 3.8 Triglycerides Cholesterol LDL Cholesterol, Calc HDL Cholesterol Vitamin B12 Folate TSH Urine Color Urine Appearance Urine pH Ur Specific [place] Urine Protein Urine Glucose (UA) Urine Ketones Urine Blood Urine Nitrite Ur Leukocyte Esterase Urine RBC Urine WBC Ur Squamous Epith Cells Urine Bacteria Hyaline Casts Clozapine Norclozapine Combine 05/16/22 05/18/22 05/19/22 06:40 09:10 19:27 WBC RBC Hgb Hct MCV MCH MCHC RDW Plt Count MPV Immature Gran % (Auto) Neut % (Auto) Lymph % (Auto) [place] % (Auto) Eos % (Auto) Baso % (Auto) Lymph # (Auto) [place] # (Auto) Eos # (Auto) Baso # (Auto) Abs Immat Gran (auto) Absolute Neuts (auto) 3.6 Absolute Nucleated RBC Nucleated RBC % (auto) Sodium Potassium Chloride Carbon Dioxide Anion Gap BUN Creatinine Estim Creat Clear Calc Estimated GFR POC Glucose 133 H Random Glucose Fasting Glucose Estimat Average Glucose Hemoglobin A1c % Calcium Total Bilirubin Direct Bilirubin AST ALT Alkaline Phosphatase Total Protein Albumin Triglycerides Cholesterol LDL Cholesterol, Calc HDL Cholesterol Vitamin B12 Folate TSH Urine Color Yellow Urine Appearance Clear Urine pH 6.5 Ur Specific [place] 1.015 Urine Protein Negative Urine Glucose (UA) Negative Urine Ketones Negative Urine Blood Negative Urine Nitrite Negative Ur Leukocyte Esterase Negative Urine RBC 0-2 Urine WBC 0-5 Ur Squamous Epith Cells 0-2 Urine Bacteria None Seen Hyaline Casts 0-2 Clozapine Norclozapine Combine 05/23/22 05/28/22 05/28/22 07:27 07:54 07:54 WBC RBC Hgb Hct MCV MCH MCHC RDW Plt Count MPV Immature Gran % (Auto) Neut % (Auto) Lymph % (Auto) [place] % (Auto) Eos % (Auto) Baso % (Auto) Lymph # (Auto) [place] # (Auto) Eos # (Auto) Baso # (Auto) Abs Immat Gran (auto) Absolute Neuts (auto) 3.4 Absolute Nucleated RBC Nucleated RBC % (auto) Sodium 140 Potassium 4.3 Chloride 107 Carbon Dioxide 29 Anion Gap 8 L BUN 16 Creatinine 1.17 Estim Creat Clear Calc 57.8 Estimated GFR > 60 POC Glucose Random Glucose 134 H Fasting Glucose Estimat Average Glucose 105 Hemoglobin A1c % 5.3 Calcium 9.5 Total Bilirubin Direct Bilirubin AST ALT Alkaline Phosphatase Total Protein Albumin Triglycerides 152 Cholesterol 135 LDL Cholesterol, Calc 64 HDL Cholesterol 41 Vitamin B12 Folate TSH 4.93 H Urine Color Urine Appearance Urine pH Ur Specific [place] Urine Protein Urine Glucose (UA) Urine Ketones Urine Blood Urine Nitrite Ur Leukocyte Esterase Urine RBC Urine WBC Ur Squamous Epith Cells Urine Bacteria Hyaline Casts Clozapine Norclozapine Combine 05/28/22 05/30/22 06/06/22 07:54 06:54 06:14 WBC RBC Hgb Hct MCV MCH MCHC RDW Plt Count MPV Immature Gran % (Auto) Neut % (Auto) Lymph % (Auto) [place] % (Auto) Eos % (Auto) Baso % (Auto) Lymph # (Auto) [place] # (Auto) Eos # (Auto) Baso # (Auto) Abs Immat Gran (auto) Absolute Neuts (auto) 3.8 2.8 Absolute Nucleated RBC Nucleated RBC % (auto) Sodium Potassium Chloride Carbon Dioxide Anion Gap BUN Creatinine Estim Creat Clear Calc Estimated GFR POC Glucose Random Glucose Fasting Glucose Estimat Average Glucose Hemoglobin A1c % Calcium Total Bilirubin Direct Bilirubin AST ALT Alkaline Phosphatase Total Protein Albumin Triglycerides Cholesterol LDL Cholesterol, Calc HDL Cholesterol Vitamin B12 Folate TSH Urine Color Urine Appearance Urine pH Ur Specific [place] Urine Protein Urine Glucose (UA) Urine Ketones Urine Blood Urine Nitrite Ur Leukocyte Esterase Urine RBC Urine WBC Ur Squamous Epith Cells Urine Bacteria Hyaline Casts Clozapine Norclozapine Combine 0.87 06/13/22 06:50 WBC RBC Hgb Hct MCV MCH MCHC RDW Plt Count MPV Immature Gran % (Auto) Neut % (Auto) Lymph % (Auto) [place] % (Auto) Eos % (Auto) Baso % (Auto) Lymph # (Auto) [place] # (Auto) Eos # (Auto) Baso # (Auto) Abs Immat Gran (auto) Absolute Neuts (auto) 2.6 Absolute Nucleated RBC Nucleated RBC % (auto) Sodium Potassium Chloride Carbon Dioxide Anion Gap BUN Creatinine Estim Creat Clear Calc Estimated GFR POC Glucose Random Glucose Fasting Glucose Estimat Average Glucose Hemoglobin A1c % Calcium Total Bilirubin Direct Bilirubin AST ALT Alkaline Phosphatase Total Protein Albumin Triglycerides Cholesterol LDL Cholesterol, Calc HDL Cholesterol Vitamin B12 Folate TSH Urine Color Urine Appearance Urine pH Ur Specific [place] Urine Protein Urine Glucose (UA) Urine Ketones Urine Blood Urine Nitrite Ur Leukocyte Esterase Urine RBC Urine WBC Ur Squamous Epith Cells Urine Bacteria Hyaline Casts Clozapine Norclozapine Combine Airway Mallampati Class: III TM Dist: >3cm Neck ROM: Full Heart: RRr Lungs: CTA Assessment and Plan Assessment Anesthesia Assessment: Anesthesia Plan Discussed and Chart Reviewed Final Anesthetic Review Family History of Problems with Anesthesia: No History of Problems with Anesthesia: No NPO: Yes ASA Class: III Final Preanesthetic Review: Meds/Allgs Chart Reviewed, Consent Obtained/Reviewed and Anes Risks/Benef Reviewed Patient Risk: Low Procedure Risk: Low Anesthetic Plan Anesthetic Plan: GA Disposition: Standard PACU
[2022-06-15] MEDS: Vortioxetine Hydrobromide 20 MG TABLET PO (08:47)
[2022-06-15] MEDS: Finasteride 5 MG TABLET PO (08:47)
[2022-06-15] MEDS: Tamsulosin HCL 0.4 MG CAPSULE PO (08:48)
--- NOTE | 2022-06-15 09:10 | PM.PSYDC ---
DS: Providers Provider Date of Service: 06/15/22 Date of admission: 04/10/22 21:40 Date of discharge: 06/15/22 Primary care physician: Nonstaff Physician Attending physician on discharge: Gregory Womack DS: Diagnosis Discharge Diagnosis (1) Major depressive disorder with psychotic features: Status: Acute DS: Medications Discharge Medications Home Medications: Home Medications Medication Instructions Recorded Confirmed clozapine 50 mg tablet 1 tab PO BEDTIME 04/11/22 04/11/22 finasteride 5 mg tablet 1 tab PO DAILY 04/11/22 04/11/22 lithium carbonate 300 mg 1 tab PO BEDTIME 04/11/22 04/11/22 tablet,extended release mirtazapine 30 mg tablet 1 tab PO BEDTIME 04/11/22 04/11/22 tamsulosin 0.4 mg capsule 1 cap PO DAILY 04/11/22 04/11/22 venlafaxine 75 mg capsule,extended 1 cap PO QAM 04/11/22 04/11/22 release 24 hr Mental Status Exam Mental Status Exam Patient Appearance: Well Grooomed and Appropriate Patient Orientation: Person and Situation Level of Consciousness: Awake and Appropriate Patient Behavior: Guarded and Passive Mood Description: Calm and Constricted Affect Description: Relaxed Patient Cognition Impaired: Yes Ability to Follow Directions: Good Speech Pattern: Clear Hallucinations: None Delusions: Not Present Thought Process: Slowed Thinking Thought Content: positive for [place] and positive for Circumstantial Judgement: Fair Data Data Completed and Pending Completed studies during hospitalization [Text1]: 06/13/22 06:50 Absolute Neuts (auto) 2.6 04/22/22 Unknown Urine clean catch - Urine wong top Urine Culture - Final Enterococcus faecalis Imaging Diagnostic Imaging Impressions Brain MRI 04/24/22 09:39 IMPRESSION: - No acute intracranial findings. No acute infarcts. - There is global cerebral volume loss and there is mild chronic microangiopathy. DS: Summary Hospital Course Hospital Course: The patient is a 72-year-old male with a long history of depression, psychosis and suicidal at times. In the last years he had more than 10 admissions into the hospital for similar presentation. On admission, he was assessed in the emergency room of another hospital and he was severely depressed with psychotic features, auditory hallucinations and suicidal ideation. Historically, he tried to kill himself by cutting his abdomen. Please see the HPI for further information. On admission, we review his list of medications and apparently he has Clozaril was has been discontinue or taper it down in the last months. Also lithium was discontinue. We gather collateral information and historically the patient did well on both medications. We started back on dose to and also we did a fast titration of lithium up to the therapeutic dose and Clozaril up to 200 mg p.o. q.h.s. without any side effects. We had several family meetings, the family was very concerned about the safety about the patient, her daughter also even thought about long-term admission. His was tired and exhausted that she was planning on divorce. We tried several antidepressants, historically Effexor has helped him but it was discontinue, eventually we cross taper him to Trintellix. With all this medication changes there was some improvement. Historically the patient had tried ECT with limited improvement. We discussed at length risks, benefits, side-effects and alternatives and the patient wanted to have ECT. We did ECT, with good improvement of his mood but it was clear that the patient became delirious after the treatment. We tried 6 ECT sessions with improvement of his mood but since there was exacerbation of delirium we decided to change twice a week. We finished 12 sessions of ECT and his mood improved dramatically. On discharge the patient adamantly denies suicidal or homicidal thoughts he denies psychotic symptoms or any safety concerns. Since there were no safety concerns discharge planning was discussed. We have to notice also that even though that we try to discharge him to [facility], his daughter talk with the daughter and eventually the daughter of [facility] refused to take him. Status at Discharge Cognitive/behavioral status at discharge: At baseline Functional status at discharge: independent ambulation Overall status at discharge: patient is back to baseline Time Spent with Patient Time attestation: Total time managing care of this patient today ____ minutes. Time spent: Greater than 30 minutes Discharge Plan Discharge Anticipated Discharge Date/Time: 06/15/22 09:59 Patient Disposition: Home, Self-Care Discharge Diagnosis: Schizoaffective disorder depressed type. Neuro cognitive impairment Referrals: Physician,Nonstaff [Primary Care Provider] - 1 Week (PCP follow up scheduled with Dr. Padilla on Wednesday06/19/22 at 10:15am Address: [address] [place] [address] Rd[address] Kelly Reis[address] T: F: ) Discharge Medications: New atorvastatin 20 mg Tablet 20 mg PO BEDTIME 30 Days Qty: 30 0RF trazodone 50 mg Tablet 50 mg PO BEDTIME MRX1 PRN (Reason: Insomnia) 30 Days Qty: 30 0RF clozapine 100 mg Tablet 200 mg PO BEDTIME 30 Days Qty: 60 0RF lithium carbonate 300 mg Tablet Extended Release 600 mg PO BEDTIME 30 Days Qty: 60 0RF Trintellix 20 mg Tablet 20 mg PO DAILY 30 Days Qty: 30 0RF sennosides [Senna Lax] 8.6 mg Tablet 17.2 mg PO BEDTIME PRN (Reason: constipation) 30 Days Qty: 30 0RF melatonin 3 mg Tablet 6 mg PO BEDTIME 30 Days Qty: 60 0RF Continued tamsulosin 0.4 mg capsule 1 cap PO DAILY 30 Days Qty: 30 0RF mirtazapine 30 mg tablet 1 tab PO BEDTIME 30 Days Qty: 30 0RF finasteride 5 mg tablet 1 tab PO DAILY 30 Days Qty: 30 0RF Discontinued clozapine 50 mg tablet 1 tab PO BEDTIME venlafaxine 75 mg capsule,extended release 24hr 1 cap PO QAM lithium carbonate 300 mg tablet extended release 1 tab PO BEDTIME Discharge Orders: Discharge Order (Routine); Ordered 06/15/22 Ordered By: Gregory Womack Diet: Advance to usual diet Activity on Discharge: As tolerated Stand Alone Forms: Patient Portal Discharge page Care Plan Goals: Care plan goals achieved in this admission Health Concerns: Continue treatment with primary care physician Plan of Treatment: Continue treatment with outpatient providers. ECT once a week for the next 3 weeks Assessment: Adult male with a long history of depression, psychosis and neurocognitive impairment with several prior admissions to the hospital for suicidal ideation, restarted on Clozaril lithium and tried on Trintellix with for improvement of depression anxiety. At this moment on ECT maintenance, no safety concerns ready to be discharged to the community.
--- NOTE | 2022-06-15 11:44 | PC.NURSE ---
reviewed discharge instructions included medication with patient and family, gathered pts belongings, pt reported happy to leave and couldnt wait to watch television on his own couch. pt denies SI/HI/ anxiety depression, AxOx4. Pt ambulated off unit accompanied by and daughter at 11:30
--- NOTE | 2022-06-15 14:18 | HO.POSTANES ---
Post Anesthesia Evaluation Post Anesthesia Evaluation Vital Signs: Vital Signs Temp Pulse Resp BP Pulse Ox O2 Del Method O2 Flow Rate 06/15/22 09:00 96.5 F L 86 18 137/70 96 Room Air 06/15/22 08:57 96.7 F L 61 16 127/61 98 Room Air 06/15/22 07:57 96 Room Air 06/15/22 08:17 98.4 F 74 15 148/83 H 97 Room Air 06/15/22 08:02 76 13 135/91 H 97 Room Air 06/15/22 07:57 75 14 116/82 98 Room Air 06/15/22 07:52 76 17 150/88 H 97 Nasal Cannula 2 06/15/22 07:47 98.4 F 84 16 162/98 H 98 Nasal Cannula 2 06/15/22 06:45 97.8 F 77 19 143/82 H 96 Room Air 06/15/22 06:00 98.8 F 80 16 141/79 H 97 Room Air Anesthesia: General Mental Status: Awake Pain Control: Satisfactory Nausea/Vomiting: None Hydration: Adequate Anesthesia-Related Issues: No Anes. Related Issues
== END 2022-06-15 11:30 | disposition home or self-care (01) | DRG 885 ==
PROVIDERS: Psychiatry & Neurology Psychiatry; Admitting Provider Psychiatry & Neurology Psychiatry; Visit Provider Psychiatry & Neurology Psychiatry
PROC: GZB4ZZZ Other Electroconvulsive Therapy (ICD-10-PCS; CPT 90870; principal; 2022-05-06 15:30)
PROC: (CPT 90870; principal; 2022-06-05 10:00)
DX: F32.3 Major depressive disorder, single episode, severe with psychotic features (principal); R45.851 Suicidal ideations; N39.0 Urinary tract infection, site not specified; F43.10 Post-traumatic stress disorder, unspecified; E78.00 Pure hypercholesterolemia, unspecified; G31.83 Neurocognitive disorder with Lewy bodies; I10 Essential (primary) hypertension; E78.5 Hyperlipidemia, unspecified; N40.0 Benign prostatic hyperplasia without lower urinary tract symptoms; Z88.0 Allergy status to penicillin; Z88.2 Allergy status to sulfonamides; Z91.51 Personal history of suicidal behavior; Z87.891 Personal history of nicotine dependence; Z79.899 Other long term (current) drug therapy
CPT/HCPCS: 36415; 70551; 80048; 80053; 80061; 80076; 80159; 80178; 81001; 82607; 82746; 82947; 83036; 84443; 85025; 85048; 87086; 87088; 87186; 90870; 93005; 95816; J0330; J1885; J2405

== ENCOUNTER 2022-06-26 05:50 | Day surgery (SDC) | payer MEDICARE, SELFPAY ==
[2022-06-26] VITALS (7 sets, daily range): BP systolic 124–168; BP diastolic 78–95; PULSE 72–76; RESP 16–23; TEMP 36.2–36.8; O2SAT 97–100; BMI 27.1
--- OUTSIDE RECORDS SUMMARY | 2022-06-26 05:53 | XMS_ITS ---
Author Name MarlinNate rodarte Address [address] [place] [address] [facility] Address [address] [place] [address] Care Team Providers Care Wearing Apparel Folder Name Role Phone Nate Dooley Unavailable [phone] PROBLEMS Type Condition ICD9-CM Code BTC17-OB Code Onset Dates Condition Status SNOMED Code Problem Cognitive changes R41.89 Active 867197 01 Problem HTN (hypertension) I10 Active 39489 003 Problem Glaucoma H40.9 Active 64422036 Problem Mood disorder F39 Active 51511786 Problem Hypercholesterolemia E78.00 Active 136 54228 Problem Anxiety F41.9 Active 50512332 Problem Hyperlipidemia E78.5 Active 52504517 Problem Insomnia G47.00 Active 070401248 Problem Hypertension I10 Active Problem Depression F32.9 Active 048550957 ALLERGIES Substance Reaction Event Type Date Status Levofloxacin Unknown Drug Allergy Oct, Active Penicillin Unknown Drug Allergy Oct, Active ENCOUNTERS Encounter Location Date Diagnosis [facility] [address] [address] Oct, Cognitive changes R41.89 ; Mood disorder F39 ; HTN (hypertension) I10 and Hypercholesterolemia E78.00 [facility] [address] [address] Sep, IMMUNIZATIONS No Known Immunizations SOCIAL HISTORY Qualifiers Date Never Smoker REASON FOR REFERRAL FUNCTIONAL STATUS PLAN OF CARE Activity Details VITAL SIGNS Temperature 97.4 degrees Fahrenheit Heart Rate 89 /min 2021-10-16 Weight 173.8 lbs 2021-10-16 BMI 25.66 kg/m2 2021-10-16 Height 69 in 2021-10-16 Blood pressure systolic 146 mm Hg Blood pressure diastolic 92 mm Hg 2021-10 MEDICATIONS Medication Instructions Dosage Frequency Start Date End Date Duration Status busPIRone HCl 5 MG TAKE 1 TABLET BY MOUTH TWICE A DAY 15 Not-Mark g Mirtazapine 15 MG TAKE 1 TABLET BY MOUTH EVERYDAY AT BEDTIME 30 Active traZODone HCl 50 MG TAKE ONE HALF TABLET BY MOUTH THREE TIMES DAILY NEEDED FOR AGITATION 20 Not-Mark g Losartan Potassium 50 MG TAKE 1 TABLET BY MOUTH EVERY DAY 90 Not-Mark vences Atorvastatin Calcium 20 MG TAKE 1 TABLET BY MOUTH EVERYDAY AT BEDTIME 30 Active cloZAPine 100 MG TAKE 1 TABLET BY MOUTH EVERY DAY FOR 7 DAYS 7 Active Venlafaxine HCl ER 75 MG TAKE 1 CAPSULE BY MOUTH EVERY DAY WITH FOOD 30 Active hydrOXYzine HCl 10 MG TAKE 1 TABLET BY MOUTH 3 TIMES A DAY NEEDED FOR ANXIETY 10 Not-Mark vences Benztropine Mesylate 0.5 MG TAKE 1 TABLET BY MOUTH EVERY DAY AT BEDTIME FOR 30 DAYS 90 Not-Mark vences DULoxetine HCl 60 MG TAKE 1 CAPSULE BY MOUTH EVERY DAY 30 Not-Mark vences [facility] Senna 8.6 MG TAKE 2 TABLETS BY MOUTH TWICE A DAY 15 Not-Mark vences Melatonin 10 MG TAKE 1 CAPSULE BY MOUTH EVERYDAY AT BEDTIME 30 Active LORazepam 1 MG TAKE 1 TAB TWICE A DAY NEEDED FOR ANXIETY 7 Not-Mark vences buPROPion HCl ER (XL) 150 MG TAKE 1 TABLET BY MOUTH EVERY DAY 30 Not-Mark vences ARIPiprazole 5 MG TAKE 1 TABLET BY MOUTH EVERYDAY AT BEDTIME 30 Not-Mark vences Escitalopram Oxalate 10 MG TAKE 1 TABLET BY MOUTH EVERY DAY 30 Not-Mark g PROCEDURES Procedure Date Ordered Result Body Site DOC MEDS VERIFIED W/PT OR RE Oct 16, 2021 RESULTS Name Result Date Reference Range COMPREHENSIVE METABOLIC PANEL 2021-10-16 ALBUMIN 4.5 3.6-5.1 ALBUMIN/GLOBULIN RATIO 2.0 1.0-2 .5 ALKALINE PHOSPHATASE 97 35-144 ALT 18 9-46 AST 15 10-35 BILIRUBIN, TOTAL 0.6 0.2-1.2 BUN/CREATININE RATIO NOT APPLICABLE 6-22 CALCIUM 9.7 8.6-10.3 CARBON DIOXIDE 31 20-32 CHLORIDE 103 98-110 CREATININE 1.00 0.70-1.35 EGFR 81 >OR = 60 GLOBULIN 2.2 1.9-3.7 GLUCOSE 74 65-99 POTASSIUM 4.6 3.5-5.3 PROTEIN, TOTAL 6.7 6.1-8.1 SODIUM 139 135-146 UREA NITROGEN (BUN) 17 7-25 CBC (H/H, RBC, INDICES, WBC, PLT) 2021-10 HEMATOCRIT 45.8 38.5-50.0 HEMOGLOBIN 14.9 13.2-17.1 MCH 28.9 27.0-33.0 MCHC 32.5 32.0-36.0 MCV 88.8 80.0-100.0 MPV 9.3 7.5-12.5 PLATELET COUNT 259 140-400 RDW 12.2 11.0-15.0 RED BLOOD CELL COUNT 5.16 4.20-5. 80 WHITE BLOOD CELL COUNT 6.8 3.8-1 0.8 RPR (DX) W/REFL TITER AND CO NFIRMATORY TESTING 2021-10-16 RPR (DX) W/REFL TITER AND CO NFIRMATORY TESTING NON-REACTIVE NON-REACTIVE LYME DISEASE AB W/REFL TO BLOT (IGG, IGM) 2021-10-16 LYME AB SCREEN <0.90 BRIDGETTE IFA, W/REFL TO TITER/PATTERN/CASCADE 2021-10-16 BRIDGETTE SCREEN, IFA NEGATIVE NEGATIVE VITAMIN B12/FOLATE, SERUM PANEL 1 FOLATE, SERUM 14.3 VITAMIN B12 [phone] TSH W/REFLEX TO FT4 2021-10-16 TSH W/REFLEX TO FT4 3.62 0.40-4.5 0 VITAMIN D,25-OH,TOTAL,IA 2021-10-16 VITAMIN D,25-OH,TOTAL,IA 52 30- 100 REASON FOR VISIT 4 mo Followup, New Pt: Cog Decline, New Pt appointment Insurance Providers Health Insurance Type Health Plan Insurance Address Health Plan Insurance Phone Health Plan Insurance Name Health Plan Coverage Dates Member ID Patient Relationship to Subscriber Patient Address Patient Phone Patient Name Patient Date of Subscriber ID Subscriber Name Subscriber Date of Group No MEDICARE [address] [place] [id number] MEDICARE self Wilian Wilson [id number] C[employer] [address] [place] [address] [employer] self Wilian Wilson [id number]
--- NOTE | 2022-06-26 06:45 | HO.ANESPROP2 ---
[facility] Active Problems Active Problems: All Active Problems (Updated 06/23/22 @ 00:33 by Vanessa Mota) Major depressive disorder with psychotic features (Acute) Past Medical History Medical History Anxiety Depression Glaucoma Hypercholesteremia Hypertension Laceration of abdomen Laceration of chest Laceration of wrist UTI (urinary tract infection) Family History Family history of problems with anesthesia: No Surgical History Surgical History History of laparotomy History of Problems with Anesthesia: No Social History Social History Household Members: Spouse Housing: House Are you a primary career portals teacher to a significant other at home: No Do you presently have visiting nurse or other home services: No Patient Tobacco Use Status: Former Tobacco user Quit Date: 03/2200 Tobacco use type: Cigarette and Cigar e-Cigarette/Vaping Use: Never Used Advance Directives: No Advance Directives Information Provided: Yes service: No Sexual orientation: Straight/Heterosexual Gender identity: Male Meds Allergies Allergy/AdvReac Type Severity Reaction Status Date / Time levofloxacin [From Levaquin] Allergy Rash Verified 05/08/22 07:07 Penicillins Allergy Rash Verified 05/08/22 07:07 Exam Exam Date and Time: June 26, 2022 0645 Airway Mallampati Class: II TM Dist: >3cm Neck ROM: Full Heart: rrr Lungs: cta Assessment and Plan Assessment Anesthesia Assessment: Anesthesia Plan Discussed and Chart Reviewed Final Anesthetic Review Family History of Problems with Anesthesia: No History of Problems with Anesthesia: No NPO: Yes ASA Class: III Final Preanesthetic Review: No Changes in Pt Med Stat, Meds/Allgs Chart Reviewed and Consent Obtained/Reviewed Patient Risk: Intermediate Procedure Risk: Intermediate Anesthetic Plan Anesthetic Plan: GA Disposition: Standard PACU
--- NOTE | 2022-06-26 07:26 | MHC.SHP ---
Pre-Procedural Eval Section A Date of Service: 06/26/22 The patient is an INPATIENT: Yes Changes since office visit: Yes Patient answered all questions; No Cold of Flu in the past 2 weeks, No New Medical Problems and No Changes in Medication Section B Chief Complaint: depressive disorder Details of Present Illness: recurrent depression doing well since d/c no psychosis Relevant Family History (Specify if Yes): No Relevant Social History: None Present Medications: see Short Stay Collaborative assessment Allergies: Allergies Allergy/AdvReac Type Severity Reaction Status Date / Time levofloxacin [From Levaquin] Allergy Rash Verified 05/08/22 07:07 Penicillins Allergy Rash Verified 05/08/22 07:07 Review of Systems Sugical H&P ROS: Negative: Constitution, Cardiovascular and Respiratory Exam Surgical H&P Exam: Normal: Heart, Normal: Lungs (clear ) and Normal: Extremities Plan Diagnosis/Plan: Unchanged I have reviewed the history and physical and performed a pertinent physical examination on my patient. No changes have occurred unless specified. Time Spent With Patient Time: Total time managing care of this patient today ____ minutes.
--- NOTE | 2022-06-26 08:13 | PC.NURSE ---
Diff obtaining IV access. Two attempts made by Beth Hilario RN, Two attempts by Dr Knowles, One attempt by Kali Montejo RN, Two attempts by Dr Feng, Successful access obtained by Dr Ochoa, but IV stopped working. IC dc'd, and new access obtained by Dr Ochoa in right AC.
--- NOTE | 2022-07-14 11:52 | HO.ECTPROC ---
ECT Procedure Note Diagnosis/Treatment Date of Service: 06/26/22 Diagnosis: Schizoaffective Disorder Previous ECT Date: 06/15/22 Current Treatment Number: Other Treatment: Maintenance Interval Clinical Notes: pt discharged from [facility] stable not psychotic no si Time: Total time managing care of this patient today ____ minutes. ECT Settings Device: THYMATRON DGx Electrode Placement: Bitemporal Program/Pulse Width: 0.50 Energy Percent: 100 Seizure Duration By EEG (in seconds): 42 Medications Administration General Anesthetic: Etomidate (14) Muscle Relaxant: Succinylcholine (100) Ancillary Medications Miscillaneous Medications: Propofol (30) Airway Management Airway Management: Bag Mask Ventilation Treatment Recommendations No Changes Recommended: No change Notes: monitor for cognitive side effects continue tx series Pt Tolerated Procedure w/o Issue: Yes
== END 2022-06-26 09:50 | disposition home or self-care (01) ==
PROVIDERS: PCP Physician Assistant Surgical; Visit Provider Psychiatry & Neurology Psychiatry
PROC: (CPT 90870; principal; 2022-06-26 07:00)
DX: F25.9 Schizoaffective disorder, unspecified (principal); F33.9 Major depressive disorder, recurrent, unspecified; I10 Essential (primary) hypertension; Z88.0 Allergy status to penicillin; Z88.1 Allergy status to other antibiotic agents
CPT/HCPCS: 90870; J0330

== ENCOUNTER 2022-07-03 07:35 | Day surgery (SDC) | payer MEDICARE, SELFPAY ==
[2022-07-03 08:11] VITALS: BP 157/83; PULSE 75; RESP 16; TEMP 36.5; O2SAT 98; BMI 26.6
--- NOTE | 2022-07-03 08:59 | P.CONAN_ITS ---
[facility] Active Problems Active Problems: All Active Problems (Updated 06/23/22 @ 00:33 by Vanessa Mota) Major depressive disorder with psychotic features (Acute) Past Medical History Medical History Anxiety Depression Glaucoma Hypercholesteremia Hypertension Laceration of abdomen Laceration of chest Laceration of wrist UTI (urinary tract infection) Family History Family history of problems with anesthesia: No Surgical History Surgical History History of laparotomy History of Problems with Anesthesia: No Social History Social History Household Members: Spouse Housing: House Are you a primary post acute care nurse to a significant other at home: No Do you presently have visiting nurse or other home services: No Patient Tobacco Use Status: Former Tobacco user Quit Date: 03/2200 Tobacco use type: Cigarette and Cigar e-Cigarette/Vaping Use: Never Used Advance Directives: No Advance Directives Information Provided: Yes service: No Sexual orientation: Straight/Heterosexual Gender identity: Male Meds Allergies Allergy/AdvReac Type Severity Reaction Status Date / Time levofloxacin [From Levaquin] Allergy Rash Verified 05/08/22 07:07 Penicillins Allergy Rash Verified 05/08/22 07:07 Exam Exam Date and Time: July 03, 2022 0859 Height,Weight and Vital Signs: Height 5 ft 8 in Weight 79.379 kg Last Vital Signs Temp 97.7 F 07/03/22 08:11 Pulse 75 07/03/22 08:11 Resp 16 07/03/22 08:11 BP 157/83 H 07/03/22 08:11 Pulse Ox 98 07/03/22 08:11 O2 Del Method Room Air 07/03/22 08:11 Airway Mallampati Class: II TM Dist: >3cm Neck ROM: Full Heart: rrr Lungs: cta Assessment and Plan Assessment Anesthesia Assessment: Anesthesia Plan Discussed and Chart Reviewed Final Anesthetic Review Family History of Problems with Anesthesia: No History of Problems with Anesthesia: No NPO: Yes ASA Class: III Final Preanesthetic Review: No Changes in Pt Med Stat, Meds/Allgs Chart Reviewed and Consent Obtained/Reviewed Patient Risk: Intermediate Procedure Risk: Intermediate Anesthetic Plan Anesthetic Plan: GA Disposition: Standard PACU
--- NOTE | 2022-07-03 10:15 | P.HPSUR_ITS ---
Pre-Procedural Eval Section A Date of Service: 07/03/22 The patient is an INPATIENT: No Changes since office visit: No Cold of Flu in the past 2 weeks, No New Medical Problems, No Changes in Medication and No Patient answered all questions The History & Physical has been completed within 30 days and I have reviewed it.: Yes Section B Chief Complaint: depression disorder Details of Present Illness: currently stable, no changes on medications Relevant Family History (Specify if Yes): Yes Relevant Social History: None Present Medications: see Short Stay Collaborative assessment Medical History: No relevant PMH Allergies: Allergies Allergy/AdvReac Type Severity Reaction Status Date / Time levofloxacin [From Levaquin] Allergy Rash Verified 05/08/22 07:07 Penicillins Allergy Rash Verified 05/08/22 07:07 Review of Systems Sugical H&P ROS: Negative: Constitution, Cardiovascular, Respiratory, Neurological, Psychiatric, Hem-Onc, Allergic/Immunologic, Gastrointestinal, Genitourinary, Musculoskeletal, Integumentary, Endocrine and Eyes/Ears/Nose/Throat Exam Surgical H&P Exam: Normal: HEENT, Normal: Heart, Normal: Lungs, Normal: Ext remities, Normal: Abdomen, Normal: Skin and Normal: Neurological Plan Diagnosis/Plan: Unchanged I have reviewed the history and physical and performed a pertinent physical examination on my patient. No changes have occurred unless specified. Time Spent With Patient Time: Total time managing care of this patient today __15__ minutes.
--- NOTE | 2022-07-03 10:35 | HO.ECTPROC ---
ECT Procedure Note Diagnosis/Treatment Date of Service: 07/03/22 Diagnosis: Schizoaffective Disorder Previous ECT Date: 06/15/22 Treatment: Maintenance Interval Clinical Notes: The patient reported euthymia, no side effects with previous ECT. Time: Total time managing care of this patient today _30___ minutes. ECT Settings Device: THYMATRON DGx Electrode Placement: Right Unilateral Program/Pulse Width: 0.50 Energy Percent: 100 Seizure Duration By EEG (in seconds): 24 By Motor Observation (in seconds): 17 Medications Administration General Anesthetic: Etomidate (14) Muscle Relaxant: Succinylcholine (100) Ancillary Medications Analgesics: Torodol - Pre ECT Anti-emetics: Zofran - Pre ECT Miscillaneous Medications: Propofol and Flumazenil Airway Management Airway Management: Bag Mask Ventilation Treatment Recommendations No Changes Recommended: No change Pt Tolerated Procedure w/o Issue: Yes
[2022-07-03 10:41] VITALS: BP 163/86; PULSE 81; RESP 16; TEMP 36.9; O2SAT 100
[2022-07-03 10:46] VITALS: BP 164/74; PULSE 79; RESP 20; O2SAT 99
[2022-07-03 10:51] VITALS: BP 164/74; PULSE 78; RESP 20; O2SAT 98
[2022-07-03 10:56] VITALS: BP 149/69; PULSE 77; RESP 20; O2SAT 98
[2022-07-03 11:11] VITALS: BP 154/83; PULSE 74; RESP 17; TEMP 37.2; O2SAT 98
== END 2022-07-03 11:47 | disposition home or self-care (01) ==
PROVIDERS: PCP Physician Assistant Surgical; Visit Provider Psychiatry & Neurology Psychiatry
PROC: (CPT 90870; principal; 2022-07-03 16:00)
DX: F25.1 Schizoaffective disorder, depressive type (principal); F41.1 Generalized anxiety disorder; I10 Essential (primary) hypertension; E78.00 Pure hypercholesterolemia, unspecified; Z88.0 Allergy status to penicillin; Z88.1 Allergy status to other antibiotic agents; Z87.891 Personal history of nicotine dependence
CPT/HCPCS: 90870; J0330

== ENCOUNTER 2022-07-10 05:53 | Day surgery (SDC) | payer MEDICARE, SELFPAY ==
[2022-07-10] VITALS (8 sets, daily range): BP systolic 144–174; BP diastolic 77–102; PULSE 71–74; RESP 15–20; TEMP 36.2–37; O2SAT 97–100; BMI 26.9
--- NOTE | 2022-07-10 06:49 | P.CONAN_ITS ---
[facility] Active Problems Active Problems: All Active Problems (Updated 06/23/22 @ 00:33 by Vanessa Mota) Major depressive disorder with psychotic features (Acute) Past Medical History Medical History Anxiety Depression Glaucoma Hypercholesteremia Hypertension Laceration of abdomen Laceration of chest Laceration of wrist UTI (urinary tract infection) Family History Family history of problems with anesthesia: No Surgical History Surgical History History of laparotomy History of Problems with Anesthesia: No Social History Social History Household Members: Spouse Housing: House Are you a primary healthcare risk control consultant to a significant other at home: No Do you presently have visiting nurse or other home services: No Patient Tobacco Use Status: Former Tobacco user Quit Date: 03/2200 Tobacco use type: Cigarette and Cigar e-Cigarette/Vaping Use: Never Used Advance Directives: No Advance Directives Information Provided: Yes service: No Sexual orientation: Straight/Heterosexual Gender identity: Male Meds Allergies Allergy/AdvReac Type Severity Reaction Status Date / Time levofloxacin [From Levaquin] Allergy Rash Verified 05/08/22 07:07 Penicillins Allergy Rash Verified 05/08/22 07:07 Exam Exam Date and Time: July 10, 2022 0649 Height,Weight and Vital Signs: Height 5 ft 8 in Weight 80.286 kg Last Vital Signs Temp 97.3 F 07/10/22 06:33 Pulse 71 07/10/22 06:33 Resp 16 07/10/22 06:33 BP 156/77 H 07/10/22 06:33 Pulse Ox 98 07/10/22 06:33 O2 Del Method Room Air 07/10/22 06:33 Airway Mallampati Class: II TM Dist: >3cm Neck ROM: Full Heart: rrr Lungs: cta Assessment and Plan Assessment Anesthesia Assessment: Anesthesia Plan Discussed and Chart Reviewed Final Anesthetic Review Family History of Problems with Anesthesia: No History of Problems with Anesthesia: No NPO: Yes ASA Class: III Final Preanesthetic Review: No Changes in Pt Med Stat, Meds/Allgs Chart Reviewed and Consent Obtained/Reviewed Patient Risk: Intermediate Procedure Risk: Intermediate Anesthetic Plan Anesthetic Plan: GA Disposition: Standard PACU
--- NOTE | 2022-07-10 07:02 | MHC.SHP ---
Pre-Procedural Eval Section A Date of Service: 07/10/22 The patient is an INPATIENT: No Changes since office visit: No Cold of Flu in the past 2 weeks, No New Medical Problems, No Changes in Medication and No Patient answered all questions The History & Physical has been completed within 30 days and I have reviewed it.: Yes Section B Chief Complaint: depression disorder Allergies: Allergies Allergy/AdvReac Type Severity Reaction Status Date / Time levofloxacin [From Levaquin] Allergy Rash Verified 05/08/22 07:07 Penicillins Allergy Rash Verified 05/08/22 07:07 Plan I have reviewed the history and physical and performed a pertinent physical examination on my patient. No changes have occurred unless specified. Time Spent With Patient Time: Total time managing care of this patient today ____ minutes.
--- NOTE | 2022-07-10 07:24 | HO.ECTPROC ---
ECT Procedure Note Diagnosis/Treatment Date of Service: 07/10/22 Diagnosis: Schizoaffective Disorder Previous ECT Date: 07/01/22 Treatment: Maintenance Interval Clinical Notes: The patient reports euthymia, no side effects with previous ECT. Time: Total time managing care of this patient today _30___ minutes. ECT Settings Device: THYMATRON DGx Electrode Placement: Right Unilateral Program/Pulse Width: 0.50 Energy Percent: 100 Seizure Duration By EEG (in seconds): 41 By Motor Observation (in seconds): 19 Medications Administration General Anesthetic: Etomidate (14) Muscle Relaxant: Succinylcholine (100) Ancillary Medications Analgesics: Torodol - Pre ECT Anti-emetics: Zofran - Pre ECT Miscillaneous Medications: Propofol and Flumazenil Airway Management Airway Management: Bag Mask Ventilation Treatment Recommendations No Changes Recommended: No change Pt Tolerated Procedure w/o Issue: Yes
== END 2022-07-10 09:20 | disposition home or self-care (01) ==
PROVIDERS: PCP Physician Assistant Surgical; Visit Provider Psychiatry & Neurology Psychiatry
PROC: (CPT 90870; principal; 2022-07-10 07:00)
DX: F25.1 Schizoaffective disorder, depressive type (principal); F34.9 Persistent mood [affective] disorder, unspecified; I10 Essential (primary) hypertension; E78.00 Pure hypercholesterolemia, unspecified; Z88.0 Allergy status to penicillin; Z88.8 Allergy status to other drugs, medicaments and biological substances; Z87.891 Personal history of nicotine dependence
CPT/HCPCS: 90870; J0330

== ENCOUNTER 2022-09-04 07:48 | Day surgery (SDC) | payer MEDICARE, SELFPAY ==
--- OUTSIDE RECORDS SUMMARY | 2022-09-04 07:51 | XMS_ITS | Patient Health Record ---
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 Name Role Phone HELLEN BERMEO Primary Care Provider [phone] ALLERGIES Allergen (clinical drug ingredient) Drug/Non Drug Allergy documented on EMR Reaction Allergy Type Onset Date Status ibuprofen Ibuprofen glaucoma Drug Allergy Active Levaquin hives Drug Allergy Active penicillin G Penicillin G Sodium hives Drug Allergy Active RESULTS Component Value Reference Range Notes .CBC AUTO DIFFERENTIAL Reviewed date:09/10/2021 08:22:59 PM Interpretation: Performing Lab: Notes/Report: WBC 4.9 4.3-10.8 10*3/uL RBC 4.61 4.20-5.80 10*6/uL Hemoglobin 13.3 13.2-17.1 g/dL Hematocrit 40.7 39.0-52.0 % MCV 88.3 80.0-100.0 fL MCH 28.9 27.0-34.0 pg MCHC 32.7 29.0-36.0 g/dL RDW 13.5 11.0-15.0 % Platelets 207 140-440 10*3/uL MPV 7.0 7.6-11.6 fL Neutrophil % 58.5 Lymphocyte % 30.3 Monocyte % 9.5 Eosinophil % 1.3 Basophil % 0.4 Neutrophil # 2.90 2.20-7.50 10*3/uL Lymphocyte # 1.5 1.3-4.5 10*3/uL Monocyte # 0.5 0.0-1.5 10*3/uL Eosinophil # 0.1 0.0-1.0 10*3/uL Basophil # 0.0 0.0-0.2 10*3/uL Smear Review? No Specimen Type= Blood; Source=Venous, Peripheral; Edmar=09/08/2021 10:24; Rcvd= 09/08/2021 10:50; Performing Site: [facility] [address] [place] [id number] .CBC AUTO DIFFERENTIAL Reviewed date:09/15/2021 01:34:57 PM Interpretation: Performing Lab: Notes/Report: WBC 6.0 4.3-10.8 10*3/uL RBC 4.67 4.20-5.80 10*6/uL Hemoglobin 13.6 13.2-17.1 g/dL Hematocrit 41.3 39.0-52.0 % MCV 88.5 80.0-100.0 fL MCH 29.1 27.0-34.0 pg MCHC 32.9 29.0-36.0 g/dL RDW 13.9 11.0-15.0 % Platelets 234 140-440 10*3/uL MPV 6.9 7.6-11.6 fL Neutrophil % 63.1 Lymphocyte % 27.0 Monocyte % 8.4 Eosinophil % 1.1 Basophil % 0.4 Neutrophil # 3.80 2.20-7.50 10*3/uL Lymphocyte # 1.6 1.3-4.5 10*3/uL Monocyte # 0.5 0.0-1.5 10*3/uL Eosinophil # 0.1 0.0-1.0 10*3/uL Basophil # 0.0 0.0-0.2 10*3/uL Smear Review? No Specimen Type= Blood; Source=Venous, Peripheral; Edmar=09/15/2021 12:45; Rcvd= 09/15/2021 12:57; Performing Site: [facility] [address] [place] [id number] .CBC AUTO DIFFERENTIAL Reviewed date:09/29/2021 08:10:21 PM Interpretation: Performing Lab: Notes/Report: WBC 6.0 4.3-10.8 10*3/uL RBC 4.65 4.20-5.80 10*6/uL Hemoglobin 13.7 13.2-17.1 g/dL Hematocrit 41.0 39.0-52.0 % MCV 88.1 80.0-100.0 fL MCH 29.4 27.0-34.0 pg MCHC 33.3 29.0-36.0 g/dL RDW 13.8 11.0-15.0 % Platelets 239 140-440 10*3/uL MPV 6.9 7.6-11.6 fL Neutrophil % 63.2 Lymphocyte % 25.7 Monocyte % 9.4 Eosinophil % 1.2 Basophil % 0.5 Neutrophil # 3.80 2.20-7.50 10*3/uL Lymphocyte # 1.6 1.3-4.5 10*3/uL Monocyte # 0.6 0.0-1.5 10*3/uL Eosinophil # 0.1 0.0-1.0 10*3/uL Basophil # 0.0 0.0-0.2 10*3/uL Smear Review? No Specimen Type= Blood; Source=Venous, Peripheral; Edmar=09/22/2021 12:47; Rcvd= 09/22/2021 13:03; Performing Site: [facility] [address] [place] [address] .CBC AUTO DIFFERENTIAL Reviewed date:09/29/2021 08:10:20 PM Interpretation: Performing Lab: Notes/Report: WBC 5.7 4.3-10.8 10*3/uL RBC 5.02 4.20-5.80 10*6/uL Hemoglobin 14.7 13.2-17.1 g/dL Hematocrit 45.1 39.0-52.0 % MCV 89.8 80.0-100.0 fL MCH 29.4 27.0-34.0 pg MCHC 32.7 29.0-36.0 g/dL RDW 13.8 11.0-15.0 % Platelets 272 140-440 10*3/uL MPV 7.3 7.6-11.6 fL Neutrophil % 62.0 Lymphocyte % 27.0 Monocyte % 8.6 Eosinophil % 1.7 Basophil % 0.7 Neutrophil # 3.60 2.20-7.50 10*3/uL Lymphocyte # 1.6 1.3-4.5 10*3/uL Monocyte # 0.5 0.0-1.5 10*3/uL Eosinophil # 0.1 0.0-1.0 10*3/uL Basophil # 0.0 0.0-0.2 10*3/uL Smear Review? No Specimen Type= Blood; Source=Venous, Peripheral; Edmar=09/29/2021 08:57; Rcvd= 09/29/2021 08:57; Performing Site: [place] [address] .CBC AUTO DIFFERENTIAL Reviewed date:10/07/2021 10:17:16 PM Interpretation: Performing Lab: Notes/Report: WBC 5.0 4.3-10.8 10*3/uL RBC 4.80 4.20-5.80 10*6/uL Hemoglobin 14.1 13.2-17.1 g/dL Hematocrit 42.6 39.0-52.0 % MCV 88.7 80.0-100.0 fL MCH 29.4 27.0-34.0 pg MCHC 33.1 29.0-36.0 g/dL RDW 13.3 11.0-15.0 % Platelets 245 140-440 10*3/uL MPV 6.6 7.6-11.6 fL Neutrophil % 60.1 Lymphocyte % 29.9 Monocyte % 8.1 Eosinophil % 1.4 Basophil % 0.5 Neutrophil # 3.00 2.20-7.50 10*3/uL Lymphocyte # 1.5 1.3-4.5 10*3/uL Monocyte # 0.4 0.0-1.5 10*3/uL Eosinophil # 0.1 0.0-1.0 10*3/uL Basophil # 0.0 0.0-0.2 10*3/uL Smear Review? No Specimen Type= Blood; Source=Venous, Peripheral; Edmar=10/06/2021 09:33; Rcvd= 10/06/2021 09:47; Performing Site: [address] [address] .CBC AUTO DIFFERENTIAL Reviewed date:10/14/2021 11:23:56 AM Interpretation: Performing Lab: Notes/Report: WBC 5.6 4.3-10.8 10*3/uL RBC 4.93 4.20-5.80 10*6/uL Hemoglobin 14.5 13.2-17.1 g/dL Hematocrit 43.9 39.0-52.0 % MCV 89.0 80.0-100.0 fL MCH 29.4 27.0-34.0 pg MCHC 33.0 29.0-36.0 g/dL RDW 13.6 11.0-15.0 % Platelets 244 140-440 10*3/uL MPV 6.7 7.6-11.6 fL Neutrophil % 62.4 Lymphocyte % 27.2 Monocyte % 9.3 Eosinophil % 0.6 Basophil % 0.5 Neutrophil # 3.50 2.20-7.50 10*3/uL Lymphocyte # 1.5 1.3-4.5 10*3/uL Monocyte # 0.5 0.0-1.5 10*3/uL Eosinophil # 0.0 0.0-1.0 10*3/uL Basophil # 0.0 0.0-0.2 10*3/uL Smear Review? No Specimen Type= Blood; Source=Venous, Peripheral; Edmar=10/13/2021 11:05; Rcvd= 10/13/2021 11:15; Performing Site: [facility] [address] [place] [address] .CBC AUTO DIFFERENTIAL Reviewed date:10/23/2021 02:35:12 PM Interpretation: Performing Lab: Notes/Report: WBC 5.9 4.3-10.8 10*3/uL RBC 4.94 4.20-5.80 10*6/uL Hemoglobin 14.3 13.2-17.1 g/dL Hematocrit 43.6 39.0-52.0 % MCV 88.3 80.0-100.0 fL MCH 29.0 27.0-34.0 pg MCHC 32.8 29.0-36.0 g/dL RDW 13.6 11.0-15.0 % Platelets 254 140-440 10*3/uL MPV 6.8 7.6-11.6 fL Neutrophil % 67.1 Lymphocyte % 23.9 Monocyte % 7.8 Eosinophil % 0.7 Basophil % 0.5 Neutrophil # 3.90 2.20-7.50 10*3/uL Lymphocyte # 1.4 1.3-4.5 10*3/uL Monocyte # 0.5 0.0-1.5 10*3/uL Eosinophil # 0.0 0.0-1.0 10*3/uL Basophil # 0.0 0.0-0.2 10*3/uL Smear Review? No Specimen Type= Blood; Source=Venous, Peripheral; Edmar=10/21/2021 10:10; Rcvd= 10/21/2021 10:24; Performing Site: [facility] [address] [place] [id number] .CBC AUTO DIFFERENTIAL Reviewed date:10/29/2021 02:09:59 PM Interpretation: Performing Lab: Notes/Report: WBC 6.4 4.3-10.8 10*3/uL RBC 5.08 4.20-5.80 10*6/uL Hemoglobin 14.9 13.2-17.1 g/dL Hematocrit 44.1 39.0-52.0 % MCV 86.9 80.0-100.0 fL MCH 29.3 27.0-34.0 pg MCHC 33.7 29.0-36.0 g/dL RDW 13.7 11.0-15.0 % Platelets 223 140-440 10*3/uL MPV 6.6 7.6-11.6 fL Neutrophil % 65.1 Lymphocyte % 23.4 Monocyte % 9.3 Eosinophil % 1.6 Basophil % 0.6 Neutrophil # 4.20 2.20-7.50 10*3/uL Lymphocyte # 1.5 1.3-4.5 10*3/uL Monocyte # 0.6 0.0-1.5 10*3/uL Eosinophil # 0.1 0.0-1.0 10*3/uL Basophil # 0.0 0.0-0.2 10*3/uL Smear Review? No Specimen Type= Blood; Source=Venous, Peripheral; Edmar=10/27/2021 09:13; Rcvd= 10/27/2021 09:33; Performing Site: [facility] [address] [place] [address] LIPID PANEL Reviewed date:02/25/2022 01:24:23 PM Interpretation: Performing Lab:NL2, [facility] [id number], ([address]), [id number] Nilo Carlin Notes/Report: FASTING:NO FASTING: NO CHOLESTEROL, TOTAL 131 <200 mg/dL HDL CHOLESTEROL 44 > OR = 40 mg/dL TRIGLYCERIDES 145 <150 mg/dL LDL-CHOLESTEROL 64 Reference range: <100 Desirable range <100 mg/dL for primary prevention; <70 mg/dL for patients with CHD or diabetic patients with > or = 2 CHD risk factors. LDL-C is now calculated using the Ann calculation, which is a validated novel method providing better accuracy than the Friedewald equation in the estimation of LDL-C. Amador MODI et al. DEBORAH. 2013;310(19): 7981-3155 (http://[employer].Cartour/faq/THF376) CHOL/HDLC RATIO 3.0 <5.0 (calc) NON HDL CHOLESTEROL 87 <130 mg/dL (calc) For patients with diabetes plus 1 major ASCVD risk factor, treating to a non-HDL-C goal of <100 mg/dL (LDL-C of <70 mg/dL) is considered a therapeutic option. COMPREHENSIVE METABOLIC PANE Reviewed date:02/25/2022 01:24:23 PM Interpretation: Performing Lab:2, [facility] [id number] [place] [address], (2), [id number] Nilo Carlin Notes/Report: FASTING:NO FASTING: NO GLUCOSE 157 65-139 mg/dL Non-fasting reference interval UREA NITROGEN (BUN) 20 7-25 mg/dL CREATININE 1.01 0.70-1.28 mg/dL EGFR 80 > OR = 60 mL/min/1.73m2 The eGFR is based on the CKD-EPI 2021 equation. To calculate the new eGFR from a previous Creatinine or Cystatin C result, go to https://www.kidney.org/pr ofessionals/ kdoqi/gfr%5Fcalculator BUN/CREATININE RATIO NOT APPLICABLE 6-22 (calc) SODIUM 140 135-146 mmol/L POTASSIUM 4.4 3.5-5.3 mmol/L CHLORIDE 106 98-110 mmol/L CARBON DIOXIDE 29 20-32 mmol/L CALCIUM 9.4 8.6-10.3 mg/dL PROTEIN, TOTAL 6.3 6.1-8.1 g/dL ALBUMIN 4.2 3.6-5.1 g/dL GLOBULIN 2.1 1.9-3.7 g/dL (calc) ALBUMIN/GLOBULIN RATIO 2.0 1.0-2.5 (calc) BILIRUBIN, TOTAL 0.6 0.2-1.2 mg/dL ALKALINE PHOSPHATASE 65 35-144 U/L AST 24 10-35 U/L ALT 35 9-46 U/L URINALYSIS, COMPLETE W/REFLE X TO CULTURE Reviewed date:02/25/2022 01:24:23 PM Interpretation: Performing Lab:2, [facility], (2), [id number] Nilo Carlin Notes/Report: FASTING:NO FASTING: NO COLOR YELLOW YELLOW APPEARANCE CLEAR CLEAR SPECIFIC GRAVITY 1.016 1.001-1.035 PH 6.0 5.0-8.0 GLUCOSE NEGATIVE NEGATIVE BILIRUBIN NEGATIVE NEGATIVE KETONES NEGATIVE NEGATIVE OCCULT BLOOD NEGATIVE NEGATIVE PROTEIN NEGATIVE NEGATIVE NITRITE NEGATIVE NEGATIVE LEUKOCYTE ESTERASE NEGATIVE NEGATIVE WBC NONE SEEN < OR = 5 /HPF RBC NONE SEEN < OR = 2 /HPF SQUAMOUS EPITHELIAL CELLS NONE SEEN < OR = 5 /HPF BACTERIA NONE SEEN NONE SEEN /HPF HYALINE CAST NONE SEEN NONE SEEN /LPF NOTE This urine was analyzed for the presence of WBC, RBC, bacteria, casts, and other formed elements. Only those elements seen were reported. REFLEXIVE URINE CULTURE NO C ULTURE INDICATED HEMOGLOBIN A1c Reviewed date:02/25/2022 01:24:23 PM Interpretation: Performing Lab:[facility], [facility] ([address]), [id number] Nilo Carlin Notes/Report: FASTING:NO FASTING: NO HEMOGLOBIN A1c 5.4 <5.7 % of total Hgb For the purpose of screening for the presence of diabetes: <5.7% Consistent with the absence of diabetes 5.7-6.4% Consistent with increased risk for diabetes (prediabetes) > or =6.5% Consistent with diabetes This assay result is consistent with a decreased risk of diabetes. Currently, no consensus exists regarding use of hemoglobin A1c for diagnosis of diabetes in children. According to [place] Diabetes Association (ADA) guidelines, hemoglobin A1c <7.0% represents optimal control in non- diabetic patients. Different metrics may apply to specific patient populations. Standards of Medical Care in Diabetes(ADA). COPY(IES) SENT TO: Reviewed date:02/25/2022 01:24:23 PM Interpretation: Performing Lab: Notes/Report: FASTING:NO FASTING: NO COPY(IES) SENT TO: [address] [place] [address] US KIDNEY COMPLETE AND BLADD ER Reviewed date:03/18/2022 07:57:06 AM Interpretation: Performing Lab: Notes/Report: EXAMINATION: Ultrasound kidneys and bladder. INDICATION: Urinary incontinence TECHNIQUE: Ultrasound evaluation of the kidneys and bladder. Multiple grayscale and color Doppler images were obtained. COMPARISON: No recent renal imaging. Abdomen ultrasound report, 06/06/2009 FINDINGS: RIGHT KIDNEY: The right kidney measures 10.9 cm. The parenchyma is within normal limits. There is no shadowing stone or hydronephrosis. LEFT KIDNEY: The left kidney measures 11.6 cm. The parenchyma is within normal limits. There is no shadowing stone or hydronephrosis. BLADDER: The bladder is unremarkable in sonographic appearance. Prevoid, bladder volume is 140 mL. Post void residual bladder volume is 26 mL. No shadowing bladder stone. Bilateral ureteral jets demonstrated. IMPRESSION: Normal sonographic appearance of the kidneys and bladder. If this radiology report contains a blank impression section, it is an incomplete radiology report. Please contact the interpreting radiologist or applicable radiology division as soon as possible to obtain the completed interpretation. Workstation ID: [id number] Electronically Signed by BIJAL WELDON REASON FOR REFERRAL No Information MEDICATIONS Medication SIG (Take, Route, Frequency, Duration) Notes Start Date End Date Status Finasteride 5 MG 1 tablet Orally Once a day Active traZODone HCl 50 MG 3 tablets at bedtime Orally Once a day Active Tamsulosin HCl 0.4 MG 1 capsule Orally Once a day Active Senna-Time 8.6 mg TAKE 2 TABLETS BY MOUTH AT BEDTIME NEEDED for 14 Active Losartan Potassium 50 MG TAKE 1 TABLET BY MOUTH EVERY DAY Active Atorvastatin Calcium 20MG TAKE 1 TABLET DAILY Active cloZAPine 100 MG TAKE 1 TABLET BY MOUTH EVERY DAY anc = 4200 on 10/27/21 Active Venlafaxine HCl ER 75 MG TAKE 1 CAPSULE BY MOUTH EVERY DAY WITH FOOD Active [place] Carbonate 150 MG 1 capsule Orally Twice a day Active Melatonin 3 MG 1 tablet at bedtime as needed Orally Once a day for 30 day(s) Active Mirtazapine 15 MG TAKE 1 TABLET BY MOUTH EVERYDAY AT BEDTIME Active Trintellix 20 MG 1 tablet Orally Once a day for 30 day(s) Active SOCIAL HISTORY Sex Assigned At : Social History Observation Description Sex Assigned At Unknown Alcohol Screen Question Answer Notes Did you have a drink contain ing alcohol in the past year? Yes How often did you have a dri nk containing alcohol in the past year? 2 to 3 times a week (3 points) PROBLEMS Problem Type ICD Code Onset Dates Problem Status W/U Status Risk SNOMED Code Notes Problem Essential (primary) hypertension (I10) Active confirmed 04207269 Problem Glaucoma (H40.9) Active confirmed 72197 001 Problem Major depression, recurrent, chronic (F33.9) Active confirmed 74765665 Problem Benign prostatic hyperplasia with lower urinary tract symptoms (N40.1) Active confirmed 3848413524744 Problem Pure hypercholesterolemia (E78.00) Active confirmed 908053567 Problem Urinary incontinence , unspecified type (R32) Active confirmed 785250658 VITAL SIGNS Heart Rate 83 /min 08/21/2022 Vitals taken by rg Oximetry 97 % 08/21/2022 Vitals taken by rg Blood pressure diastolic 74 mm Hg 08/21/2022 Vit als taken by rg Height 68 in 08/21/2022 Vitals taken by rg Blood pressure systolic 111 mm Hg 08/21/2022 Cherelle ls taken by rg Weight 176.8 lbs 08/21/2022 Vitals taken by rg BMI 26.88 kg/m2 08/21/2022 Vitals taken by rg Encounters Encounter Location Date Provider Diagnosis [address] [place], [place] [id number] 12/24/2021 HELLEN BERMEO [address] [place], [place] [id number] 05/22/2022 HELLEN BERMEO Glaucoma H40.9 ; Ess ential (primary) hypertension I10 ; Pure hypercholesterolemia E78.00 ; Major depression, recurrent, chronic F33.9 ; Urinary incontinence, unspecified type R32 and Benign prostatic hyperplasia with lower urinary tract symptoms N40.[address] [place], [place] [id number] 08/21/2022 HELLEN BERMEO Major depression, recurrent, chronic F33.9 ; Encounter for general adult medical examination with abnormal findings Z00.01 ; Benign prostatic hyperplasia with lower urinary tract symptoms N40.1 ; Essential (primary) hypertension I10 ; Pure hypercholesterolemia E78.00 ; Encounter for prostate cancer screening Z12.5 ; Pre-operative cardiovascular examination Z01.810 and Preoperative evaluation to rule out surgical contraindication Z01.[address] [place], [place] [id number] 09/05/2021 HELLEN BERMEO Glaucoma H40.9 ; Jude or depression, recurrent, chronic F33.9 ; Essential (primary) hypertension I10 and Pure hypercholesterolemia E78.[address] [place], [place] [id number] 09/26/2021 HELLEN BERMEO Glaucoma H40.9 ; Jude or depression, recurrent, chronic F33.9 ; Essential (primary) hypertension I10 and Pure hypercholesterolemia E78.[address] [place], [place] [id number] 10/29/2021 HELLEN BERMEO Glaucoma H40.9 ; Jude or depression, recurrent, chronic F33.9 ; Essential (primary) hypertension I10 and Pure hypercholesterolemia E78.[address] [place], [place] [id number] 02/18/2022 HELLEN BERMEO Urinary incontinence , unspecified type R32 ; Encounter for screening for cardiovascular disorders Z13.6 ; Encounter for general adult medical examination with abnormal findings Z00.01 ; Encounter for prostate cancer screening Z12.5 ; Glaucoma H40.9 ; Essential (primary) hypertension I10 ; Pure hypercholesterolemia E78.00 ; Major depression, recurrent, chronic F33.9 and Enuresis R32 [address] [place], [place] [id number] 03/27/2022 HELLEN BERMEO Essential (primary) hypertension I10 ; Hospital discharge follow-up Z09 ; Pure hypercholesterolemia E78.00 ; Major depression, recurrent, chronic F33.9 ; Urinary incontinence, unspecified type R32 ; Glaucoma H40.9 and Benign prostatic hyperplasia with lower urinary tract symptoms N40.[address] [place], [place] [id number] 06/19/2022 HELLEN BERMEO Essential (primary) hypertension I10 ; Hospital discharge follow-up Z09 ; Pure hypercholesterolemia E78.00 ; Major depression, recurrent, chronic F33.9 ; Urinary incontinence, unspecified type R32 and Benign prostatic hyperplasia with lower urinary tract symptoms N40.1 [facility] [address] [place], [place] [id number] 09/12/2021 HELLEN BERMEO Major depression, recurrent, chronic F33.9 [facility] [address] [place] [address] [address] [place], [place] [id number] 09/15/2021 HELLEN BERMEO [facility] [address] [place] [address] [address] [place], [place] [id number] 09/30/2021 HELLEN BERMEO [facility] [address] [place] [address] [address] [place], [place] [id number] 10/10/2021 HELLEN BERMEO [facility] [address] [place] [address] [address] [place], [place] [id number] 10/10/2021 HELLEN BERMEO Major depression, recurrent, chronic F33.[address] [place], [place] [id number] 10/14/2021 HELLEN BERMEO Major depression, recurrent, chronic F33.9 [facility] [address] [place] [address] [address] [place], [place] [id number] 10/16/2021 HELLEN BERMEO Major depression, recurrent, chronic F33.9 [facility] [address] [place] [address] [place] [id number] 10/21/2021 HELLEN BERMEO [facility] [address] [place] [address] [address] [place], [place] [id number] 10/21/2021 HELLEN BERMEO [facility] [address] [place] [address] [address] [place], [place] [id number] 10/21/2021 HELLEN BERMEO Major depression, recurrent, chronic F33.[address] [id number] 10/21/2021 HELLEN BERMEO [facility] [address] [place] [address] [place] [id number] 10/28/2021 HELLEN BREMEO Major depression, recurrent, chronic F33.9 [facility] [address] [place] [id number] 12/22/2021 HELLEN BERMEO [facility] [address] [place], [place] [id number] 03/18/2022 HELLEN BERMEO [facility] [address] [place], [place] [id number] 03/26/2022 HELLEN BERMEO [facility] [address] [place] [address] [address] [place], [place] [id number] 03/30/2022 HELLEN BERMEO [facility] [address] [place] [address] [address] [place], [place] [id number] 04/01/2022 HELLEN BERMEO [facility] [address] [place], [place] [id number] 06/10/2022 HELLEN BERMEO [address] [place], [place] [id number] 07/07/2022 HELLEN BERMEO Pure hypercholestero lemia E78.00 and Benign prostatic hyperplasia with lower urinary tract symptoms N40.[address] [place], [place] [id number] 07/07/2022 HELLEN JEAN-CLAUDE [address] [place], [place] [id number] 08/13/2022 HELLEN BERMEO Essential (primary) hypertension I10 and Pure hypercholesterolemia E78.00 ASSESSMENTS Encounter Date Diagnosis Assessment Notes Treatment Notes Treatment Clinical Notes 09/05/2021 Glaucoma (ICD-10 - H40.9) 09/05/2021 Major depression, recurrent, chronic (ICD-10 - F33.9) continue current dosage of medication, reviewed strategies including lifestyle modification, increased exercise and activities involving social interaction, consideration of counselling. call if any exacerbation, particularly thoughts of self harm, and continue frequent regular follow up 10/10/2021 Major depression, recurrent, chronic (ICD-10 - F33.9) 10/14/2021 Major depression, recurrent, chronic (ICD-10 - F33.9) 10/29/2021 Glaucoma (ICD-10 - H40.9) 10/29/2021 Major depression, recurrent, chronic (ICD-10 - F33.9) continue current dosage of medication, reviewed strategies including lifestyle modification, increased exercise and activities involving social interaction, consideration of counselling. call if any exacerbation, particularly thoughts of self harm, and continue frequent regular follow up. FOLLOW CLOSEY WITH PSYCHIATRY, DOING MUCH BETTER, NOT SENSNING SUICIDAL IDEATION. 02/18/2022 Urinary incontinence , unspecified type (ICD-10 - R32) 06/19/2022 Essential (primary) hypertension (ICD-10 - I10) blood pressure controllled within goal parameters for this patient given overall condition and comorbidities. monitor labs for renal function and electrolytes. contninue current medication dosage. work on regular exercise, weight loss diet, and sodium restriction. recheck bp 2-4 times per year in office and use home monitor as indicated 06/19/2022 Hospital discharge follow-up (ICD-10 - Z09) reviewed discyarge documents form last hospitalization, including medication list. reconciled his list prior to hospitalization with treatment in [facility] and his currrent medication profile as patient is now taking at home. answered questions regarding the medication regimen and will continue 07/07/2022 Pure hypercholestero lemia (ICD-10 - E78.00) 08/13/2022 Essential (primary) hypertension (ICD-10 - I10) 08/13/2022 Pure hypercholestero lemia (ICD-10 - E78.00) 10/21/2021 Major depression, recurrent, chronic (ICD-10 - F33.9) 10/16/2021 Major depression, recurrent, chronic (ICD-10 - F33.9) 09/26/2021 Glaucoma (ICD-10 - H40.9) 09/26/2021 Major depression, recurrent, chronic (ICD-10 - F33.9) continue current dosage of medication, reviewed strategies including lifestyle modification, increased exercise and activities involving social interaction, consideration of counselling. call if any exacerbation, particularly thoughts of self harm, and continue frequent regular follow up 09/12/2021 Major depression, recurrent, chronic (ICD-10 - F33.9) 05/22/2022 Essential (primary) hypertension (ICD-10 - I10) blood pressure controllled within goal parameters for this patient given overall condition and comorbidities. monitor labs for renal function and electrolytes. contninue current medication dosage. work on regular exercise, weight loss diet, and sodium restriction. recheck bp 2-4 times per year in office and use home monitor as indicated 05/22/2022 Glaucoma (ICD-10 - H40.9) 03/27/2022 Essential (primary) hypertension (ICD-10 - I10) blood pressure controllled within goal parameters for this patient given overall condition and comorbidities. monitor labs for renal function and electrolytes. contninue current medication dosage. work on regular exercise, weight loss diet, and sodium restriction. recheck bp 2-4 times per year in office and use home monitor as indicated 03/27/2022 Hospital discharge follow-up (ICD-10 - Z09) reviewed discyarge documents form last hospitalization, including medication list. reconciled his list prior to hospitalization with treatment in [facility] and his currrent medication profile as patient is now taking at home. answered questions regarding the medication regimen and will continue 10/28/2021 Major depression, recurrent, chronic (ICD-10 - F33.9) 08/21/2022 Encounter for genera l adult medical examination with abnormal findings (ICD-10 - Z00.01) g. 08/21/2022 Major depression, recurrent, chronic (ICD-10 - F33.9) continue current dosage of medication, reviewed strategies including lifestyle modification, increased exercise and activities involving social interaction, consideration of counselling. call if any exacerbation, , and continue frequent regular follow up 08/21/2022 Benign prostatic hyperplasia with lower urinary tract symptoms (ICD-10 - N40.1) Assessed for adequacy of bladder emptying as manifested by hesitancy, slow stream, daytime urinary freqency, and amount of nocturia. Discussed. Stepwise approach to treatment includes Tamsulosin for low grade nocturia. Finasteride is next step if symptoms progress in spite of tamsulosin or other alpha kenny. Risks and benefits reviewed including affect on PSA testing. If sx progress, and nocturia is greater than twice per night, consider urology referral for post-void residual testing and further evaluation and treatment. At this time, stable, and continue current approach. 05/22/2022 Pure hypercholestero lemia (ICD-10 - E78.00) lipid profile reviewed, shows good response to statin therapy, continue same medication, monitor labs 2-3 times per year, work on low fat diet and weight control 03/27/2022 Pure hypercholestero lemia (ICD-10 - E78.00) lipid profile reviewed, shows good response to statin therapy, continue same medication, monitor labs 2-3 times per year, work on low fat diet and weight control 07/07/2022 Benign prostatic hyperplasia with lower urinary tract symptoms (ICD-10 - N40.1) 06/19/2022 Pure hypercholestero lemia (ICD-10 - E78.00) lipid profile reviewed, shows good response to statin therapy, continue same medication, monitor labs 2-3 times per year, work on low fat diet and weight control 09/26/2021 Essential (primary) hypertension (ICD-10 - I10) blood pressure controllled within goal parameters for this patient given overall condition and comorbidities. monitor labs for renal function and electrolytes. contninue current medication dosage. work on regular exercise, weight loss diet, and sodium restriction. recheck bp 2-4 times per year in office and use home monitor as indicated 02/18/2022 Encounter for screen ing for cardiovascular disorders (ICD-10 - Z13.6) 10/29/2021 Essential (primary) hypertension (ICD-10 - I10) blood pressure controllled within goal parameters for this patient given overall condition and comorbidities. monitor labs for renal function and electrolytes. contninue current medication dosage. work on regular exercise, weight loss diet, and sodium restriction. recheck bp 2-4 times per year in office and use home monitor as indicated 09/05/2021 Essential (primary) hypertension (ICD-10 - I10) blood pressure controllled within goal parameters for this patient given overall condition and comorbidities. monitor labs for renal function and electrolytes. contninue NO current medication dosage. work on regular exercise, weight loss diet, and sodium restriction. recheck bp 2-4 times per year in office and use home monitor as indicated. DOING WELL OFF [place], BP WAS TRENDING LOW. 09/05/2021 Pure hypercholestero lemia (ICD-10 - E78.00) lipid profile reviewed, shows good response to statin therapy, continue same medication, monitor labs 2-3 times per year, work on low fat diet and weight control 02/18/2022 Encounter for genera l adult medical examination with abnormal findings (ICD-10 - Z00.01) 10/29/2021 Pure hypercholestero lemia (ICD-10 - E78.00) lipid profile reviewed, shows good response to statin therapy, continue same medication, monitor labs 2-3 times per year, work on low fat diet and weight control 06/19/2022 Major depression, recurrent, chronic (ICD-10 - F33.9) continue current dosage of medication, reviewed strategies including lifestyle modification, increased exercise and activities involving social interaction, consideration of counselling. call if any exacerbation, , and continue frequent regular follow up 02/18/2022 Encounter for prosta te cancer screening (ICD-10 - Z12.5) The risks and benefits of prostate cancer screening were discussed and all questions answered. Reviewed the efficacy of screening - deaths from prostate cancer have dropped dramatically since the inititiation of psa testing. There is peace of mind in knowing the psa is nornal and though there are false negatives, the risk of a false negative is low. There is a fairly high false positive rate, and subsequent biopsies that are negative can create anxiety and discomfort. However, it is an individual decision and most men prefer to know the psa is high and then make an informed decision on how to approach the possible cancer, as opposed to no testing and therefore no warning as to cancer onset. He agrees to have psa testing. 09/26/2021 Pure hypercholestero lemia (ICD-10 - E78.00) lipid profile reviewed, shows good response to statin therapy, continue same medication, monitor labs 2-3 times per year, work on low fat diet and weight control 05/22/2022 Major depression, recurrent, chronic (ICD-10 - F33.9) continue current dosage of medication, reviewed strategies including lifestyle modification, increased exercise and activities involving social interaction, consideration of counselling. call if any exacerbation, , and continue frequent regular follow up 03/27/2022 Major depression, recurrent, chronic (ICD-10 - F33.9) continue current dosage of medication, reviewed strategies including lifestyle modification, increased exercise and activities involving social interaction, consideration of counselling. call if any exacerbation, , and continue frequent regular follow up 08/21/2022 Essential (primary) hypertension (ICD-10 - I10) blood pressure controllled within goal parameters for this patient given overall condition and comorbidities. monitor labs for renal function and electrolytes. contninue current medication dosage. work on regular exercise, weight loss diet, and sodium restriction. recheck bp 2-4 times per year in office and use home monitor as indicated 08/21/2022 Pure hypercholestero lemia (ICD-10 - E78.00) lipid profile reviewed, shows good response to statin therapy, continue same medication, monitor labs 2-3 times per year, work on low fat diet and weight control 03/27/2022 Urinary incontinence , unspecified type (ICD-10 - R32) 05/22/2022 Urinary incontinence , unspecified type (ICD-10 - R32) 06/19/2022 Urinary incontinence , unspecified type (ICD-10 - R32) 02/18/2022 Glaucoma (ICD-10 - H40.9) 02/18/2022 Essential (primary) hypertension (ICD-10 - I10) blood pressure controllled within goal parameters for this patient given overall condition and comorbidities. monitor labs for renal function and electrolytes. contninue current medication dosage. work on regular exercise, weight loss diet, and sodium restriction. recheck bp 2-4 times per year in office and use home monitor as indicated 06/19/2022 Benign prostatic hyperplasia with lower urinary tract symptoms (ICD-10 - N40.1) Assessed for adequacy of bladder emptying as manifested by hesitancy, slow stream, daytime urinary freqency, and amount of nocturia. Discussed. Stepwise approach to treatment includes Tamsulosin for low grade nocturia. Finasteride is next step if symptoms progress in spite of tamsulosin or other alpha kenny. Risks and benefits reviewed including affect on PSA testing. If sx progress, and nocturia is greater than twice per night, consider urology referral for post-void residual testing and further evaluation and treatment. At this time, stable, and continue current approach. 05/22/2022 Benign prostatic hyperplasia with lower urinary tract symptoms (ICD-10 - N40.1) Assessed for adequacy of bladder emptying as manifested by hesitancy, slow stream, daytime urinary freqency, and amount of nocturia. Discussed. Stepwise approach to treatment includes Tamsulosin for low grade nocturia. Finasteride is next step if symptoms progress in spite of tamsulosin or other alpha kenny. Risks and benefits reviewed including affect on PSA testing. If sx progress, and nocturia is greater than twice per night, consider urology referral for post-void residual testing and further evaluation and treatment. At this time, stable, and continue current approach. 03/27/2022 Glaucoma (ICD-10 - H40.9) 08/21/2022 Encounter for prosta te cancer screening (ICD-10 - Z12.5) The risks and benefits of prostate cancer screening were discussed and all questions answered. Reviewed the efficacy of screening - deaths from prostate cancer have dropped dramatically since the inititiation of psa testing. There is peace of mind in knowing the psa is nornal and though there are false negatives, the risk of a false negative is low. There is a fairly high false positive rate, and subsequent biopsies that are negative can create anxiety and discomfort. However, it is an individual decision and most men prefer to know the psa is high and then make an informed decision on how to approach the possible cancer, as opposed to no testing and therefore no warning as to cancer onset. He agrees to have psa testing. 08/21/2022 Pre-operative cardiovascular examination (ICD-10 - Z01.810) 03/27/2022 Benign prostatic hyperplasia with lower urinary tract symptoms (ICD-10 - N40.1) continiue catheter, see dr. bourne soon, and observe response to his new medication. 02/18/2022 Pure hypercholestero lemia (ICD-10 - E78.00) lipid profile reviewed, shows good response to statin therapy, continue same medication, monitor labs 2-3 times per year, work on low fat diet and weight control 02/18/2022 Major depression, recurrent, chronic (ICD-10 - F33.9) continue current dosage of medication, reviewed strategies including lifestyle modification, increased exercise and activities involving social interaction, consideration of counselling. call if any exacerbation, particularly thoughts of self harm, and continue frequent regular follow up 08/21/2022 Preoperative evaluat ion to rule out surgical contraindication (ICD-10 - Z01.818) REVIEWEDD TODAY'S EKG, HISTORY AND EXAM AND HE IS MEDICALLY CLEARED FORHIS ECT TREATMENT 02/18/2022 Enuresis (ICD-10 - R32) BRIANSruthi HERNANDEZ IS REALTED TO HIS MEDICAGION PROGRAM FOR HIS PSYCHIAGRIC CONDITGOIN, URGED HIM TO CALL PSYCHIAARY. 08/21/2022 Other PLAN OF TREATMENT Pending Test Test Name Order Date .HEMOGLOBIN A1C 02/18/2022 .COMPREHENSIVE METABOLIC PANEL 3 .COMPREHENSIVE METABOLIC PANEL 3 .LIPID PANEL 05/22/2022 .LIPID PANEL 02/18/2022 .PSA 02/18/2022 .URINALYSIS W/REFLEX TO MICROSCOPIC with CULTURE) 02/18/2022 Future Test Test Name Order Date .CBC AUTO DIFFERENTIAL 08/13/2022 Next Appt Details Provider Name:HELLEN BERMEO, 11/27/2022 09:30:00 AM, [address] [place] [address], [address], [place], [place], [phone], Insurance Providers Payer Name Payer Address Payer Phone Subscriber Number Group Number Insured Name Patient Relationship to Insured Coverage Start Date Coverage End Date [facility] [address] [place] [phone] [id number] Wilian Wilson Self - patient is the insured 2022 MEDICAR E/ NGS [address] [place] [phone] [id number] SteveWilian daniels Self - patient is the insured MEDICAL (GENERAL) HISTORY Medical History History ICD Code depression f/b Dr. Phoenix in psychiatry hypertension hypercholesterolemia glaucoma f/b Dr. Wright Surgical History Surgery Date(Month/Year) Colonoscopy 2004 ETT WNL 01/2012 Hospitalization History Reason Date(Month/Year) Depression 05/2015
--- OUTSIDE RECORDS SUMMARY | 2022-09-04 07:51 | XMS_ITS ---
Author Name MarlinNate rodarte Address [address] [place] [address] 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 Role Phone Nate Dooley Unavailable [phone] PROBLEMS Type Condition ICD9-CM Code IPA28-HN Code Onset Dates Condition Status SNOMED Code Problem Cognitive changes R41.89 Active 857668 01 Problem HTN (hypertension) I10 Active 17663 003 Problem Glaucoma H40.9 Active 41452708 Problem Mood disorder F39 Active 54145714 Problem Hypercholesterolemia E78.00 Active 136 17462 Problem Anxiety F41.9 Active 07943513 Problem Hyperlipidemia E78.5 Active 27172226 Problem Insomnia G47.00 Active 072570086 Problem Hypertension I10 Active Problem Depression F32.9 Active 106158432 ALLERGIES Substance Reaction Event Type Date Status Levofloxacin Unknown Drug Allergy Oct, Active Penicillin Unknown Drug Allergy Oct, Active ENCOUNTERS Encounter Location Date Diagnosis [facility] [address] [address] Oct, Cognitive changes R41.89 ; Mood disorder F39 ; HTN (hypertension) I10 and Hypercholesterolemia E78.00 [facility] [address] [address] Sep, IMMUNIZATIONS No Known Immunizations SOCIAL HISTORY [...] PANEL 1 FOLATE, SERUM 14.3 VITAMIN B12 [phone] TSH W/REFLEX TO FT4 2021-10-16 TSH W/REFLEX [...] Subscriber Name Subscriber Date of Group No [employer] [address] [place] [address] [employer] self Wiliananna Wilson [id number] MEDICARE [address] [place] [id number] MEDICARE self Wilian Wilson [id number]
--- NOTE | 2022-09-04 08:03 | ECG_ITS ---
Test Reason : pre ect Blood Pressure : / mmHG Vent. Rate : 073 BPM Atrial Rate : 073 BPM P-R Int : 154 ms QRS Dur : 126 ms QT Int : 400 ms P-R-T Axes : 003 -53 073 degrees QTc Int : 440 ms Normal sinus rhythm Left axis deviation Non-specific intra-ventricular conduction block Minimal voltage criteria for LVH, may be normal variant ( [place] product ) Abnormal ECG When compared with ECG of 05-MAY-2022 08:15, Non-specific intra-ventricular conduction block has replaced Left bundle branch block Referred By: Chacho Torres Electronically Signed By:Luis Yancey
[2022-09-04 08:28] VITALS: BP 138/80; PULSE 78; RESP 16; TEMP 36.5; O2SAT 100; BMI 26.6
[2022-09-04 08:59] LABS: MANUAL DIFF FLAG NO
[2022-09-04 09:02] LABS: Basophils Percent Auto 0.3 % (0-2); Eosinophils Absolute Auto 0.1 X10*3/uL (0.0-0.4); Hematocrit 46.3 % (42.0-52.0); Hemoglobin 14.8 g/dl (14.0-18.0); Imm Gran Abs Auto 0.02 X10*3/uL (0.00-0.03); Imm Gran Pct Auto 0.3 % (0.0-0.4); Lymphocytes Absolute Auto 1.2 X10*3/uL (1.2-4.9); Lymphocytes Percent Auto 17.7 % (20-40); Mean Corpuscular Hemoglobin 30.1 pg (27.0-33.0); Mean Corpuscular Volume 94.3 fL (80.0-98.0); Mean Platelet Volume 8.9 fL (9.4-12.4); Monocytes Absolute Auto 0.5 X10*3/uL (0.1-1.2); Neutrophils Absolute Auto 4.9 x10*3/uL (2.0-8.3); Neutrophils Percent Auto 72.7 % (45-73); Platelet Count 209 X10*3/uL (160-400); Red Blood Count 4.91 X10*6/uL (4.60-5.80); Red Cell Distribution Width 13.5 % (11.0-16.0); White Blood Count 6.8 X10*3/uL (4.8-10.8)
[2022-09-04 09:09] LABS: Lithium 0.65 mmol/L (0.60-1.20)
[2022-09-04 09:13] LABS: Anion Gap 11 (12-20); Carbon Dioxide 24 mmol/L (22-29); Chloride 109 mmol/L (96-108); Potassium 4.6 mmol/L (3.3-5.1); Sodium 139 mmol/L (135-145)
--- NOTE | 2022-09-04 09:59 | P.CONAN_ITS ---
[facility] Active Problems Active Problems: All Active Problems (Updated 06/23/22 @ 00:33 by Vanessa Mota) Major depressive disorder with psychotic features (Acute) Past Medical History Medical History Anxiety Depression Glaucoma Hypercholesteremia Hypertension Laceration of abdomen Laceration of chest Laceration of wrist UTI (urinary tract infection) Family History Family history of problems with anesthesia: No Surgical History Surgical History History of laparotomy History of Problems with Anesthesia: No Social History Social History Household Members: Spouse Housing: House Are you a primary family day care worker to a significant other at home: No Do you presently have visiting nurse or other home services: No Patient Tobacco Use Status: Former Tobacco user Quit Date: 03/2200 Tobacco use type: Cigarette and Cigar e-Cigarette/Vaping Use: Never Used Advance Directives: No Advance Directives Information Provided: Yes service: No Sexual orientation: Straight/Heterosexual Gender identity: Male Meds Allergies Allergy/AdvReac Type Severity Reaction Status Date / Time levofloxacin [From Levaquin] Allergy Rash Verified 05/08/22 07:07 Penicillins Allergy Rash Verified 05/08/22 07:07 Exam Exam Date and Time: September 04, 2022 0959 Height,Weight and Vital Signs: Height 5 ft 8 in Weight 79.379 kg Last Vital Signs Temp 97.7 F 09/04/22 08:28 Pulse 78 09/04/22 08:28 Resp 16 09/04/22 08:28 BP 138/80 09/04/22 08:28 Pulse Ox 100 09/04/22 08:28 O2 Del Method Room Air 09/04/22 08:28 Pertinent Lab Results Pertinent Lab Results: Laboratory Tests 09/04/22 09/04/22 09/04/22 08:50 08:50 08:50 WBC 6.8 RBC 4.91 Hgb 14.8 Hct 46.3 MCV 94.3 MCH 30.1 MCHC 32.0 RDW 13.5 Plt Count 209 MPV 8.9 L Immature Gran % (Auto) 0.3 Neut % (Auto) 72.7 Lymph % (Auto) 17.7 L Haines % (Auto) 8.0 Eos % (Auto) 1.0 Baso % (Auto) 0.3 Lymph # (Auto) 1.2 Haines # (Auto) 0.5 Eos # (Auto) 0.1 Baso # (Auto) 0.0 Abs Immat Gran (auto) 0.02 Absolute Neuts (auto) 4.9 Absolute Nucleated RBC 0.000 Nucleated RBC % (auto) 0.0 Sodium 139 Potassium 4.6 Chloride 109 H Carbon Dioxide 24 Anion Gap 11 L [place] 0.65 Airway Mallampati Class: III TM Dist: >3cm Neck ROM: Full Assessment and Plan Assessment Anesthesia Assessment: Anesthesia Plan Discussed and Chart Reviewed Final Anesthetic Review Family History of Problems with Anesthesia: No History of Problems with Anesthesia: No NPO: Yes ASA Class: II Final Preanesthetic Review: No Changes in Pt Med Stat, Meds/Allgs Chart Reviewed, Consent Obtained/Reviewed and Anes Risks/Benef Reviewed Patient Risk: Low Procedure Risk: Low Anesthetic Plan Anesthetic Plan: GA Disposition: Standard PACU
--- NOTE | 2022-09-04 10:08 | MHC.SHP ---
Pre-Procedural Eval Section A Date of Service: 09/04/22 The patient is an INPATIENT: No Changes since office visit: Yes Patient answered all questions; No Cold of Flu in the past 2 weeks, No New Medical Problems and No Changes in Medication The History & Physical has been completed within 30 days and I have reviewed it.: Yes Section B Chief Complaint: depression Allergies: Allergies Allergy/AdvReac Type Severity Reaction Status Date / Time levofloxacin [From Levaquin] Allergy Rash Verified 05/08/22 07:07 Penicillins Allergy Rash Verified 05/08/22 07:07 Plan I have reviewed the history and physical and performed a pertinent physical examination on my patient. No changes have occurred unless specified. Time Spent With Patient Time: Total time managing care of this patient today ____ minutes.
[2022-09-04 10:33] VITALS: BP 164/55; PULSE 75; RESP 18; TEMP 36.4; O2SAT 100
[2022-09-04 10:38] VITALS: BP 159/91; PULSE 75; RESP 20; O2SAT 99
[2022-09-04 10:43] VITALS: BP 159/90; PULSE 76; RESP 17; O2SAT 100
[2022-09-04 10:48] VITALS: BP 163/91; PULSE 76; RESP 20; O2SAT 98
--- NOTE | 2022-09-04 10:59 | HO.ECTPROC ---
ECT Procedure Note Diagnosis/Treatment Date of Service: 09/04/22 Diagnosis: Major Depressive Disorder Previous ECT Date: 07/01/22 Treatment: Maintenance (20 total) Interval Clinical Notes: Patient's case reviewed with outpatient psychiatrist Dr. Garcia patient has been stable future oriented not psychotic no thoughts of harm to himself or others no new medical problems. When seen patient is pleasant euthymic no psychotic symptoms Time: Total time managing care of this patient today ____ minutes. ECT Settings Device: THYMATRON DGx Electrode Placement: Right Unilateral Program/Pulse Width: 0.50 Energy Percent: 100 Seizure Duration By EEG (in seconds): 59 By Motor Observation (in seconds): 19 Medications Administration General Anesthetic: Etomidate (14) Muscle Relaxant: Succinylcholine (100) Ancillary Medications Anti-emetics: Zofran - Pre ECT Miscillaneous Medications: Propofol Airway Management Airway Management: Bag Mask Ventilation Treatment Recommendations No Changes Recommended: No change Notes: Schedule follow-up approximately 4-5 weeks Pt Tolerated Procedure w/o Issue: Yes
[2022-09-04 11:03] VITALS: BP 165/95; PULSE 72; RESP 17; TEMP 36.6; O2SAT 98
[2022-09-10 06:08] LABS: Clozapine (Clozaril) 293 mcg/L; Norclozapine 256 mcg/L (25-400)
== END 2022-09-04 11:25 | disposition home or self-care (01) ==
PROVIDERS: Anesthesiology; PCP Physician Assistant Surgical; Visit Provider Psychiatry & Neurology Psychiatry
PROC: (CPT 90870; principal; 2022-09-04 15:30)
DX: F33.9 Major depressive disorder, recurrent, unspecified (principal); I10 Essential (primary) hypertension; Z88.0 Allergy status to penicillin; Z88.1 Allergy status to other antibiotic agents
CPT/HCPCS: 36415; 80051; 80159; 80178; 85025; 90870; 93005; J0330

== ENCOUNTER → 2022-09-04 07:48 | Outpatient (BNV) | payer MEDICARE, SELFPAY | PROVIDERS: PCP Physician Assistant Surgical; Visit Provider Psychiatry & Neurology Psychiatry | DX: F33.3 Major depressive disorder, recurrent, severe with psychotic symptoms (principal) | CPT/HCPCS: 90870 ==

== ENCOUNTER → 2022-09-04 08:03 | Outpatient (BNV) | payer MEDICARE, SELFPAY | PROVIDERS: PCP Physician Assistant Surgical; Visit Provider Internal Medicine Cardiovascular Disease | DX: R94.31 Abnormal electrocardiogram [ECG] [EKG] (principal) | CPT/HCPCS: 93010 ==